=== PATIENT | female | born 1960 | race Caucasian/White ===

== ENCOUNTER 2017-01-06 20:41 | Emergency (ER) | payer MEDICARE ==
[2017-01-06 20:46] VITALS: RESP 18; TEMP 97.6
[2017-01-06] MEDS ORDERED: SODIUM CHLORIDE 0.9% 1,000 ML IV STA ×2 (21:07)
[2017-01-06] MEDS ORDERED: diphenhydrAMINE 50 MG/ML 1 ML VIAL IVP STA (21:07)
[2017-01-06] MEDS ORDERED: METOCLOPRAMIDE 5 MG/ML 2 ML VIAL IVP STA (21:07)
[2017-01-06] MEDS ORDERED: KETOROLAC 30 MG/ML 1 ML VIAL IVP STA (21:07)
[2017-01-06] MEDS ORDERED: MAG HYDROX/AL HYDROX/SIMETH 30 ML, HYOSCYAMINE ELIXIR 10 ML, CIMETIDINE HCL 300 MG, LID... PO STA ×4 (21:08)
--- NOTE | 2017-01-06 21:10 | ED ---
Nausea/Vomiting/Diarrhea HPI - General Chief complaint: Nausea/Vomiting/Diarrhea Stated complaint: CHest Pain COPD Time Seen by Provider: 01/06/17 20:59 Source: patient, RN notes reviewed Mode of arrival: ambulatory Limitations: no limitations - History of Present Illness Initial comments: Patient is a 56-year-old female with chief complaint of nausea and vomiting since 3 AM. Patient reports that she occasionally will have the symptoms and is unable to control and at home. She states that she does have some epigastric abdominal pain. She denies any fever or chills lately. She states that she's been feeling somewhat ill over the past 3 days prior to this. She states that she has no drug or alcohol use. She does have history of COPD and prolonged QT syndrome. She was sitting here with her daughter at this time. Patient seems to be very distraught and crying at this time. - Related Data Home Medications Medication Instructions Recorded Confirmed Budesonide-Formot 160-4.5 Mcg 2 puff INHALATION RT-BID 03/28/14 01/06/17 [Symbicort 160-4.5 Mcg Inhaler] Albuterol Inhaler [Ventolin Hfa 2 puff INHALATION RT-Q6H PRN 09/05/15 01/06/17 Inhaler] Albuterol Nebulized [Ventolin 2.5 mg INHALATION RT-QID PRN 09/05/15 01/06/17 Nebulized] Benazepril [Lotensin] 5 mg PO DAILY 09/05/15 01/06/17 Omeprazole 20 mg PO DAILY 09/05/15 01/06/17 Venlafaxine HCl [Effexor XR] 150 mg PO HS 09/05/15 01/06/17 clonazePAM [KlonoPIN] 1 mg PO BID PRN 10/20/15 01/06/17 Calcium Carbonate/Vitamin D3 1 tab PO BID 08/25/16 01/06/17 [Calcium 600-Vit D3 400 Caplet] Previous Rx's Medication Instructions Recorded Anastrozole [Arimidex] 1 mg PO DAILY #30 tab 04/02/14 amLODIPine [Norvasc] 10 mg PO DAILY #30 tab 09/08/15 Metoclopramide HCl [Reglan] 10 mg PO Q6HR PRN #5 day 03/14/16 Allergies Allergy/AdvReac Type Severity Reaction Status Date / Time ondansetron HCl AdvReac Severe Increased Verified 01/06/17 22:17 [From Zofran (as QT interval hydrochloride)] prochlorperazine edisylate AdvReac Severe Increased Verified 01/06/17 22:17 [From Compazine] QT interval prochlorperazine maleate AdvReac Severe Increased Verified 01/06/17 22:17 [From Compazine] QT Interval Review of Systems ROS Statement: Those systems with pertinent positive or pertinent negative responses have been documented in the HPI. ROS Other: All systems not noted in ROS Statement are negative. Past Medical History Past Medical History: Cancer, COPD, GERD/Reflux, GI Bleed, Hypertension, Pneumonia Additional Past Medical History / Comment(s): 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 Cyclic vomiting syndrome.HOME O2 2 LITERS AT WAS MOSTLY USING AT HS BUT LATELY HAS BEEN USING ALL DAY,BREAST CANCER, LYMPHEDEMA RT ARM, SINUS PROBLEMS,HAD COLITIS DURING CHEMO-CHEMO DONE IN 2000ALSO HAD RADIATION History of Any Multi-Drug Resistant Organisms: None Reported Past Surgical History: Breast Surgery, Orthopedic Surgery Additional Past Surgical History / Comment(s): Cone biopsy at age 22 years of age, multiple colonoscopies and EGDs. Thoracoscopy with minimal thoracotomy and pleural biopsy, D&C.. bilateral mastectomy and lymph nodeectomy, LT THUMB TRIGGER FINGER SX, LT KNEE ARTHROSOCPY, LT ACL REPAIR Past Anesthesia/Blood Transfusion Reactions: Postoperative Nausea & Vomiting ( PONV) Past Psychological History: Anxiety, Depression Smoking Status: Former smoker Past Alcohol Use History: Rare Additional Past Alcohol Use History / Comment(s): QUIT SMOKING 2011 SMOKED 10 YEARS 1/2 PPD. Past Drug Use History: None Reported Additional Drug Use History / Comment(s): Smokes pot on occasion - Past Family History Father Family Medical History: Cancer Additional Family Medical History / Comment(s): Patient reports her father of lung cancer at age 59. Mother Additional Family Medical History / Comment(s): MOM IS HEALTHY AT AGE 78 General Exam - General Exam Comments Initial Comments: 56-year-old female, patient seems to be very emotionally distraught. She will be crying for one second and laughing the next. Limitations: no limitations General appearance: alert, in no apparent distress Head exam: Present: atraumatic, normocephalic, normal inspection Eye exam: Present: normal appearance, PERRL, EOMI. Absent: scleral icterus, conjunctival injection, periorbital swelling ENT exam: Present: normal exam, mucous membranes moist Neck exam: Present: normal inspection. Absent: tenderness, meningismus, lymphadenopathy Respiratory exam: Present: normal lung sounds bilaterally. Absent: respiratory distress, wheezes, rales, rhonchi, stridor Cardiovascular Exam: Present: regular rate, normal rhythm, normal heart sounds. Absent: systolic murmur, diastolic murmur, rubs, gallop, clicks GI/Abdominal exam: Present: soft, tenderness (Epigastric tenderness.), normal bowel sounds. Absent: distended, guarding, rebound, rigid Extremities exam: Present: normal inspection, full ROM, normal capillary refill. Absent: tenderness, pedal edema, joint swelling, calf tenderness Back exam: Present: normal inspection Neurological exam: Present: alert, oriented X3, CN II-XII intact Psychiatric exam: Present: normal affect, normal mood Skin exam: Present: warm, dry, intact, normal color. Absent: rash Course Vital Signs 01/06/17 01/06/17 01/07/17 20:44 23:24 00:18 Temperature 97.6 F Pulse Rate 97 86 91 Respiratory 18 18 18 Rate Blood Pressure 141/90 164/98 147/95 O2 Sat by Pulse 95 91 L 92 L Oximetry Medical Decision Making - Medical Decision Making Patient is a 56-year-old female chief complaint of nausea and vomiting for one day. She states that she does have some acid reflux chest like pain occurring since then. Patient given GI cocktail IV fluids. Laboratory was obtained is negative for any acute process. Chest x-ray and abdominal x-ray are negative for any acute process. Patient reports she is feeling somewhat better after receiving IV Reglan. She was given crackers and Sprite and didn't tolerate this. Patient has been advised to follow-up with primary care provider tomorrow. Discussed continue taking at home Reglan. Patient agrees with treatment plan will comply. Return parameters were discussed. Patient feels comfortable about going home. - Lab Data Result diagrams: 01/06/17 21:28 01/06/17 21:28 Lab Results 01/06/17 01/06/17 01/06/17 Range/Units 21:28 21:28 21:28 WBC 10.7 H (3.8-10.6) k/uL RBC 5.06 (3.80-5.40) m/uL Hgb 15.5 (11.4-16.0) gm/dL Hct 45.8 (34.0-46.0) % MCV 90.5 (80.0-100.0) fL MCH 30.6 (25.0-35.0) pg MCHC 33.8 (31.0-37.0) g/dL RDW 13.6 (11.5-15.5) % Plt Count 342 (150-450) k/uL Neutrophils % 89 % Lymphocytes % 7 % Monocytes % 4 % Eosinophils % 0 % Basophils % 0 % Neutrophils # 9.5 H (1.3-7.7) k/uL Lymphocytes # 0.7 L (1.0-4.8) k/uL Monocytes # 0.4 (0-1.0) k/uL Eosinophils # 0.0 (0-0.7) k/uL Basophils # 0.0 (0-0.2) k/uL Sodium 139 (137-145) mmol/L Potassium 3.9 (3.5-5.1) mmol/L Chloride 98 (98-107) mmol/L Carbon Dioxide 29 (22-30) mmol/L Anion Gap 12 mmol/L BUN 15 (7-17) mg/dL Creatinine 0.50 L (0.52-1.04) mg/dL Est GFR (MDRD) Af Amer >60 (>60 ml/min/1.73 sqM) Est GFR (MDRD) Non-Af >60 (>60 ml/min/1.73 sqM) Glucose 165 H (74-99) mg/dL Calcium 10.1 (8.4-10.2) mg/dL Total Bilirubin 1.0 (0.2-1.3) mg/dL AST 32 (14-36) U/L ALT 32 (9-52) U/L Alkaline Phosphatase 100 (38-126) U/L Total Creatine Kinase 108 (30-135) U/L CK-MB (CK-2) 1.2 (0.0-2.4) ng/mL CK-MB (CK-2) Rel Index 1.1 Troponin I <0.012 (0.000-0.034) ng/mL Total Protein 8.5 H (6.3-8.2) g/dL Albumin 5.1 H (3.5-5.0) g/dL Amylase 56 (30-110) U/L Lipase 27 (23-300) U/L Urine Color Urine Appearance (Clear) Urine pH (5.0-8.0) Ur Specific [place] (1.001-1.035) Urine Protein (Negative) Urine Glucose (UA) (Negative) Urine Ketones (Negative) Urine Blood (Negative) Urine Nitrite (Negative) Urine Bilirubin (Negative) Urine Urobilinogen (<2.0) mg/dL Ur Leukocyte Esterase (Negative) Urine RBC (0-5) /hpf Urine WBC (0-5) /hpf Ur Squamous Epith Cells (0-4) /hpf Amorphous Sediment (None) /hpf Hyaline Casts (0-2) /lpf Urine Mucus (None) /hpf 01/06/17 Range/Units 23:07 WBC (3.8-10.6) k/uL RBC (3.80-5.40) m/uL Hgb (11.4-16.0) gm/dL Hct (34.0-46.0) % MCV (80.0-100.0) fL MCH (25.0-35.0) pg MCHC (31.0-37.0) g/dL RDW (11.5-15.5) % Plt Count (150-450) k/uL Neutrophils % % Lymphocytes % % Monocytes % % Eosinophils % % Basophils % % Neutrophils # (1.3-7.7) k/uL Lymphocytes # (1.0-4.8) k/uL Monocytes # (0-1.0) k/uL Eosinophils # (0-0.7) k/uL Basophils # (0-0.2) k/uL Sodium (137-145) mmol/L Potassium (3.5-5.1) mmol/L Chloride (98-107) mmol/L Carbon Dioxide (22-30) mmol/L Anion Gap mmol/L BUN (7-17) mg/dL Creatinine (0.52-1.04) mg/dL Est GFR (MDRD) Af Amer (>60 ml/min/1.73 sqM) Est GFR (MDRD) Non-Af (>60 ml/min/1.73 sqM) Glucose (74-99) mg/dL Calcium (8.4-10.2) mg/dL Total Bilirubin (0.2-1.3) mg/dL AST (14-36) U/L ALT (9-52) U/L Alkaline Phosphatase (38-126) U/L Total Creatine Kinase (30-135) U/L CK-MB (CK-2) (0.0-2.4) ng/mL CK-MB (CK-2) Rel Index Troponin I (0.000-0.034) ng/mL Total Protein (6.3-8.2) g/dL Albumin (3.5-5.0) g/dL Amylase (30-110) U/L Lipase (23-300) U/L Urine Color Light Yellow Urine Appearance Cloudy H (Clear) Urine pH 8.0 (5.0-8.0) Ur Specific [place] 1.011 (1.001-1.035) Urine Protein Negative (Negative) Urine Glucose (UA) Trace H (Negative) Urine Ketones Negative (Negative) Urine Blood Negative (Negative) Urine Nitrite Negative (Negative) Urine Bilirubin Negative (Negative) Urine Urobilinogen <2.0 (<2.0) mg/dL Ur Leukocyte Esterase Negative (Negative) Urine RBC 1 (0-5) /hpf Urine WBC 1 (0-5) /hpf Ur Squamous Epith Cells 1 (0-4) /hpf Amorphous Sediment Occasional H (None) /hpf Hyaline Casts 1 (0-2) /lpf Urine Mucus Rare H (None) /hpf 01/06/17 23:04 EKG shows normal sinus rhythm. Right atrial enlargement. Prolonged QT. Ventricular 91 bpm. [place] interval 142 ms. QRS duration 80 ms. QT/QTC 396/47 ms. No evidence of ST elevation or T-wave inversion. No illicit atrial or ventricular arrhythmias. - Radiology Data Radiology results: report reviewed Chest x-ray and KUB were reviewed and are negative for any acute process. Disposition Clinical Impression: Nausea & vomiting Disposition: HOME SELF-CARE Condition: Good Instructions: Acute Nausea and Vomiting (ED) Additional Instructions: Patient advised to follow-up tomorrow with primary care provider. Return to the emergency department if any alarming signs or symptoms occur. Patient advised to continue to take at home Reglan. Have a bland diet. Return to the emergency department if any alarming signs or symptoms occur. Referrals: Sanjay Alberts DO [Primary Care Provider] - 1-2 days Time of Disposition: 23:40
--- NOTE | 2017-01-06 22:11 | XR ---
EXAMINATION TYPE: XR chest 2V DATE OF EXAM: 01/06/2017 9:55 PM COMPARISON: 08/25/2016 HISTORY: Chest pain TECHNIQUE: Frontal and lateral views of the chest are obtained. FINDINGS: There is no heart failure nor confluent pneumonic infiltrate. There is mild pleural scarri ng at the lateral right lung base. Bony thorax is intact. There are no hilar masses. Heart size is no rmal. There are chest leads. IMPRESSION: Pleural diaphragmatic scarring at the right lung base. No change compared to old exam. N o acute lung disease. Normal heart.
--- NOTE | 2017-01-06 22:12 | XR ---
EXAMINATION TYPE: XR KUB DATE OF EXAM: 01/06/2017 9:55 PM COMPARISON: 03/14/2016 HISTORY: Abdominal pain TECHNIQUE: 2 views FINDINGS: Bowel gas pattern is normal. There is no sign of intestinal obstruction or pneumoperitoneum . Fecal pattern is normal. There are no pathologic calcifications over the kidneys. IMPRESSION: Nonacute abdomen. No change.
[2017-01-06 22:15] LABS: Basophils % (A) 0 %; CH 30.8; CHCM 34.1; Eosinophils % (A) 0 %; HCT 45.8 % (34.0-46.0); HDW 2.38; HGB 15.5 gm/dL (11.4-16.0); Luc # (Auto) 0.07; Luc % (Auto) 1; Lymphocytes # (A) 0.7 k/uL (1.0-4.8); Lymphocytes % (A) 7 %; MCH 30.6 pg (25.0-35.0); MCHC 33.8 g/dL (31.0-37.0); MCV 90.5 fL (80.0-100.0); Monocytes # (A) 0.4 k/uL (0-1.0); Monocytes % (A) 4 %; Neutrophils # (A) 9.5 k/uL (1.3-7.7); Neutrophils % (A) 89 %; RBC 5.06 m/uL (3.80-5.40); RDW 13.6 % (11.5-15.5); WBC 10.7 k/uL (3.8-10.6); WBC (Perox) 10.58
[2017-01-06 22:20] LABS: Creatine Kinase 108 U/L (30-135)
[2017-01-06 22:22] LABS: ALT 32 U/L (9-52); AST 32 U/L (14-36); Alkaline Phosphatase 100 U/L (38-126); Amylase 56 U/L (30-110); Anion Gap 12 mmol/L; Blood Urea Nitrogen 15 mg/dL (7-17); Calcium 10.1 mg/dL (8.4-10.2); Carbon Dioxide 29 mmol/L (22-30); Chloride 98 mmol/L (98-107); Glucose 165 mg/dL (74-99); Non-African American GFR(MDRD) >60 (>60 ml/min/1.73 sqM); Potassium 3.9 mmol/L (3.5-5.1); Sodium 139 mmol/L (137-145); Total Protein 8.5 g/dL (6.3-8.2)
[2017-01-06 22:33] LABS: Creatine Kinase MB 1.2 ng/mL (0.0-2.4); Troponin I <0.012 ng/mL (0.000-0.034)
[2017-01-06 23:37] LABS: Amorphous Sediment,Urine Occasional /hpf; Appearance,Urine Cloudy (Clear); Bilirubin,Urine Negative (Negative); Glucose,Urine (UA) Trace (Negative); Ketones,Urine Negative (Negative); Leukocyte Esterase,Urine Negative (Negative); Mucus,Urine Rare /hpf; Nitrite,Urine Negative (Negative); Particle Count 5933; Protein,Urine Negative (Negative); RBC,Urine 1 /hpf (0-5); Specific Gravity,Urine 1.011 (1.001-1.035); Squamous Epithelial Cell,Urine 1 /hpf (0-4); UA Billing (MACRO vs. MICRO) MICRO; Urobilinogen,Urine <2.0 mg/dL (<2.0); WBC,Urine 1 /hpf (0-5)
[2017-01-07 00:19] VITALS: BP 147/95; PULSE 91
== END 2017-01-07 00:19 | disposition home or self-care (01) ==
LOC: EC 20:41
DX: R11.2 Nausea with vomiting, unspecified (principal); R07.9 Chest pain, unspecified; R19.7 Diarrhea, unspecified; R10.13 Epigastric pain; J44.9 Chronic obstructive pulmonary disease, unspecified; K21.9 Gastro-esophageal reflux disease without esophagitis; I10 Essential (primary) hypertension; F32.9 Major depressive disorder, single episode, unspecified; Z87.891 Personal history of nicotine dependence; F41.9 Anxiety disorder, unspecified; Z79.51 Long term (current) use of inhaled steroids; Z79.899 Other long term (current) drug therapy; Z88.8 Allergy status to other drugs, medicaments and biological substances; Z87.01 Personal history of pneumonia (recurrent)
CPT/HCPCS: 36415; 93005; 80053; 82150; 82550; 82553; 83690; 84484; 85025; 81001; 71020; 74000; 99284; 96374; 96375 ×2; 96361 ×2; J1200; J2765; J1885

== ENCOUNTER 2017-03-18 10:23 | Inpatient (IN) | payer MEDICARE ==
[2017-03-18] MEDS ORDERED: methylPREDNISolone SOD SUCCI 125 MG/2 ML VIAL IV STA (11:09)
[2017-03-18] MEDS ORDERED: LEVOFLOXACIN 750MG-D5W PMX 750 MG in DEXTROSE/WATER 1 150ML.BAG IVPB STA (11:09)
[2017-03-18] MEDS ORDERED: ALBUTEROL NEBULIZED 2.5 MG/3 ML INHALATION STA (11:09)
[2017-03-18] MEDS ORDERED: SODIUM CHLORIDE 0.9% 500 ML IV STA (11:09)
[2017-03-18] MEDS ORDERED: IPRATROPIUM 0.5 MG/2.5 ML NEBU INHALATION STA (11:09)
--- NOTE | 2017-03-18 11:14 | ED ---
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 Patient comes in today patient had a three-day history of difficulty breathing which has gotten considerably worse. Patient is on oxygen 2 L every night but lately has had to use it during the day. Patient states she's been taking her breathing treatments but she continues to be quite short of breath. Patient states today she was coughing and coughed up quite a bit of green sputum. Patient denies any chest pain or palpitations. Patient denies abdominal pain patient denies nausea vomiting diarrhea. Patient denies any headache patient denies numbness weakness. Patient denies lightheadedness or dizziness. - Related Data Home Medications Medication Instructions Recorded Confirmed Budesonide-Formot 160-4.5 Mcg 2 puff INHALATION RT-BID 03/28/14 03/18/17 [Symbicort 160-4.5 Mcg Inhaler] Albuterol Inhaler [Ventolin Hfa 2 puff INHALATION RT-Q6H PRN 09/05/15 03/18/17 Inhaler] Albuterol Nebulized [Ventolin 2.5 mg INHALATION RT-QID PRN 09/05/15 03/18/17 Nebulized] Omeprazole 20 mg PO DAILY 09/05/15 03/18/17 Venlafaxine HCl [Effexor XR] 150 mg PO HS 09/05/15 03/18/17 clonazePAM [KlonoPIN] 1 mg PO BID PRN 10/20/15 03/18/17 Calcium Carbonate/Vitamin D3 1 tab PO BID 08/25/16 03/18/17 [Calcium 600-Vit D3 400 Caplet] Previous Rx's Medication Instructions Recorded Anastrozole [Arimidex] 1 mg PO DAILY #30 tab 04/02/14 amLODIPine [Norvasc] 10 mg PO DAILY #30 tab 09/08/15 Metoclopramide HCl [Reglan] 10 mg PO Q6HR PRN #5 day 03/14/16 Allergies Allergy/AdvReac Type Severity Reaction Status Date / Time ondansetron HCl AdvReac Severe Increased Verified 03/18/17 11:09 [From Zofran (as QT interval hydrochloride)] prochlorperazine edisylate AdvReac Severe Increased Verified 03/18/17 11:09 [From Compazine] QT interval prochlorperazine maleate AdvReac Severe Increased Verified 03/18/17 11:09 [From Compazine] QT Interval Review of Systems ROS Statement: Those systems with pertinent positive or pertinent negative responses have been documented in the HPI. ROS Other: All systems not noted in ROS Statement are negative. Past Medical History Past Medical History: Cancer, COPD, GERD/Reflux, GI Bleed, Hypertension, Pneumonia Additional Past Medical History / Comment(s): 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 Cyclic vomiting syndrome.HOME O2 2 LITERS AT WAS MOSTLY USING AT HS BUT LATELY HAS BEEN USING ALL DAY,BREAST CANCER, LYMPHEDEMA RT ARM, SINUS PROBLEMS,HAD COLITIS DURING CHEMO-CHEMO DONE IN 2000ALSO HAD RADIATION History of Any Multi-Drug Resistant Organisms: None Reported Past Surgical History: Breast Surgery, Orthopedic Surgery Additional Past Surgical History / Comment(s): Cone biopsy at age 22 years of age, multiple colonoscopies and EGDs. Thoracoscopy with minimal thoracotomy and pleural biopsy, D&C.. bilateral mastectomy and lymph nodeectomy, LT THUMB TRIGGER FINGER SX, LT KNEE ARTHROSOCPY, LT ACL REPAIR Past Anesthesia/Blood Transfusion Reactions: Postoperative Nausea & Vomiting ( PONV) Past Psychological History: Anxiety, Depression Smoking Status: Former smoker Past Alcohol Use History: Rare Past Drug Use History: None Reported - Past Family History Father Family Medical History: Cancer Additional Family Medical History / Comment(s): Patient reports her father of lung cancer at age 59. Mother Additional Family Medical History / Comment(s): MOM IS HEALTHY AT AGE 78 General Exam - General Exam Comments Initial Comments: GENERAL: Patient is well-developed and well-nourished. Patient is nontoxic and well- hydrated and is in moderate distress. ENT: Neck is soft and supple. No significant lymphadenopathy is noted. Oropharynx is clear. Moist mucous membranes. Neck has full range of motion without eliciting any pain. EYES: The sclera were anicteric and conjunctiva were pink and moist. Extraocular movements were intact and pupils were equal round and reactive to light. Eyelids were unremarkable. PULMONARY: Diffuse expiratory wheezing CARDIOVASCULAR: There is a regular rate and rhythm without any murmurs gallops or rubs. ABDOMEN: Soft and nontender with normal bowel sounds. No palpable organomegaly was noted. There is no palpable pulsatile mass. SKIN: Skin is clear with no lesions or rashes and otherwise unremarkable. NEUROLOGIC: Patient is alert and oriented x3. Cranial nerves II through XII are grossly intact. Motor and sensory are also intact. Normal speech, volume and content. Symmetrical smile. MUSCULOSKELETAL: Normal extremities with adequate strength and full range of motion. LYMPHATICS: No significant lymphadenopathy is noted PSYCHIATRIC: Normal psychiatric evaluation. Normal interpersonal interactions appears functionally intact in deals appropriately with others. No signs of depression. No signs of anxiety. Limitations: physical limitation Course Vital Signs 03/18/17 03/18/17 03/18/17 10:35 10:46 11:27 Temperature 97.0 F L Pulse Rate 90 88 90 Respiratory 20 18 Rate Blood Pressure 113/79 138/81 O2 Sat by Pulse 89 L 92 L Oximetry 03/18/17 03/18/17 03/18/17 11:52 11:59 12:01 Temperature 98.1 F Pulse Rate 94 98 101 H Respiratory 18 Rate Blood Pressure 138/81 O2 Sat by Pulse 99 Oximetry Medical Decision Making - Medical Decision Making EKG shows normal sinus rhythm at 83 bpm RI interval is 132 QRS is 78 QT interval 392 QTC is 460. Patient's EKG shows no ST segment elevation or depression or T-wave abdomen is noted. Chest x-ray shows no acute abnormality. Patient received 3 breathing treatments in the emergency department after that I listened to the patient again she was feeling better and sounded more clear at this time. I spoke with Dr. Babb he agreed to admit the patient admitted the patient I wrote admitting orders consult with Dr. Prescott I continued to breathing treatments and Solu-Medrol the floor. I also continued antibiotics on the floor. - Lab Data Result diagrams: 03/18/17 10:54 03/18/17 10:54 Lab Results 03/18/17 03/18/17 03/18/17 Range/Units 10:54 10:54 10:54 WBC 13.0 H (3.8-10.6) k/uL RBC 4.88 (3.80-5.40) m/uL Hgb 15.6 (11.4-16.0) gm/dL Hct 45.3 (34.0-46.0) % MCV 92.9 (80.0-100.0) fL MCH 31.9 (25.0-35.0) pg MCHC 34.3 (31.0-37.0) g/dL RDW 13.9 (11.5-15.5) % Plt Count 336 (150-450) k/uL Neutrophils % 89 % Lymphocytes % 6 % Monocytes % 4 % Eosinophils % 0 % Basophils % 0 % Neutrophils # 11.6 H (1.3-7.7) k/uL Lymphocytes # 0.8 L (1.0-4.8) k/uL Monocytes # 0.5 (0-1.0) k/uL Eosinophils # 0.1 (0-0.7) k/uL Basophils # 0.0 (0-0.2) k/uL PT (9.0-12.0) sec INR (<1.1) APTT (22.0-30.0) sec Sodium 138 (137-145) mmol/L Potassium 4.7 (3.5-5.1) mmol/L Chloride 99 (98-107) mmol/L Carbon Dioxide 29 (22-30) mmol/L Anion Gap 10 mmol/L BUN 6 L (7-17) mg/dL Creatinine 0.49 L (0.52-1.04) mg/dL Est GFR (MDRD) Af Amer >60 (>60 ml/min/1.73 sqM) Est GFR (MDRD) Non-Af >60 (>60 ml/min/1.73 sqM) Glucose 133 H (74-99) mg/dL Plasma Lactic Acid [place] (0.7-2.0) mmol/L Calcium 9.1 (8.4-10.2) mg/dL Magnesium 1.9 (1.6-2.3) mg/dL Total Bilirubin 1.1 (0.2-1.3) mg/dL AST 36 (14-36) U/L ALT 19 (9-52) U/L Alkaline Phosphatase 94 (38-126) U/L Total Creatine Kinase 127 (30-135) U/L CK-MB (CK-2) 0.8 (0.0-2.4) ng/mL CK-MB (CK-2) Rel Index 0.6 Troponin I <0.012 (0.000-0.034) ng/mL Total Protein 7.6 (6.3-8.2) g/dL Albumin 4.5 (3.5-5.0) g/dL 03/18/17 03/18/17 Range/Units 10:54 10:54 WBC (3.8-10.6) k/uL RBC (3.80-5.40) m/uL Hgb (11.4-16.0) gm/dL Hct (34.0-46.0) % MCV (80.0-100.0) fL MCH (25.0-35.0) pg MCHC (31.0-37.0) g/dL RDW (11.5-15.5) % Plt Count (150-450) k/uL Neutrophils % % Lymphocytes % % Monocytes % % Eosinophils % % Basophils % % Neutrophils # (1.3-7.7) k/uL Lymphocytes # (1.0-4.8) k/uL Monocytes # (0-1.0) k/uL Eosinophils # (0-0.7) k/uL Basophils # (0-0.2) k/uL PT 10.2 (9.0-12.0) sec INR 1.0 (<1.1) APTT 26.0 (22.0-30.0) sec Sodium (137-145) mmol/L Potassium (3.5-5.1) mmol/L Chloride (98-107) mmol/L Carbon Dioxide (22-30) mmol/L Anion Gap mmol/L BUN (7-17) mg/dL Creatinine (0.52-1.04) mg/dL Est GFR (MDRD) Af Amer (>60 ml/min/1.73 sqM) Est GFR (MDRD) Non-Af (>60 ml/min/1.73 sqM) Glucose (74-99) mg/dL Plasma Lactic Acid [place] 1.1 (0.7-2.0) mmol/L Calcium (8.4-10.2) mg/dL Magnesium (1.6-2.3) mg/dL Total Bilirubin (0.2-1.3) mg/dL AST (14-36) U/L ALT (9-52) U/L Alkaline Phosphatase (38-126) U/L Total Creatine Kinase (30-135) U/L CK-MB (CK-2) (0.0-2.4) ng/mL CK-MB (CK-2) Rel Index Troponin I (0.000-0.034) ng/mL Total Protein (6.3-8.2) g/dL Albumin (3.5-5.0) g/dL Critical Care Time Critical Care Time: Yes Total Critical Care Time: 35 Disposition Clinical Impression: Acute exacerbation of chronic obstructive airways disease, Acute bronchitis Disposition: ADMITTED IP TO THIS HOSP Referrals: Sanjay Alberts DO [Primary Care Provider] - 1-2 days Time of Disposition: 13:08
[2017-03-18 11:37] LABS: Basophils % (A) 0 %; CH 30.9; CHCM 33.4; Eosinophils # (A) 0.1 k/uL (0-0.7); Eosinophils % (A) 0 %; HCT 45.3 % (34.0-46.0); HDW 2.23; HGB 15.6 gm/dL (11.4-16.0); Luc # (Auto) 0.07; Luc % (Auto) 1; Lymphocytes # (A) 0.8 k/uL (1.0-4.8); Lymphocytes % (A) 6 %; MCH 31.9 pg (25.0-35.0); MCHC 34.3 g/dL (31.0-37.0); MCV 92.9 fL (80.0-100.0); Mean Platelet Volume 6.7; Monocytes # (A) 0.5 k/uL (0-1.0); Monocytes % (A) 4 %; Neutrophils # (A) 11.6 k/uL (1.3-7.7); Neutrophils % (A) 89 %; RBC 4.88 m/uL (3.80-5.40); RDW 13.9 % (11.5-15.5); WBC (Perox) 12.29
[2017-03-18 11:44] LABS: ALT 19 U/L (9-52); AST 36 U/L (14-36); Alkaline Phosphatase 94 U/L (38-126); Anion Gap 10 mmol/L; Blood Urea Nitrogen 6 mg/dL (7-17); Calcium 9.1 mg/dL (8.4-10.2); Carbon Dioxide 29 mmol/L (22-30); Chloride 99 mmol/L (98-107); Glucose 133 mg/dL (74-99); Magnesium 1.9 mg/dL (1.6-2.3); Non-African American GFR(MDRD) >60 (>60 ml/min/1.73 sqM); Sodium 138 mmol/L (137-145); Total Bilirubin 1.1 mg/dL (0.2-1.3); Total Protein 7.6 g/dL (6.3-8.2)
[2017-03-18 11:54] LABS: Potassium 4.7 mmol/L (3.5-5.1)
[2017-03-18 12:00] LABS: Prothrombin Time 10.2 sec (9.0-12.0)
[2017-03-18 12:05] LABS: Creatine Kinase 127 U/L (30-135)
[2017-03-18 12:16] LABS: Creatine Kinase MB 0.8 ng/mL (0.0-2.4); Troponin I <0.012 ng/mL (0.000-0.034)
--- NOTE | 2017-03-18 12:16 | XR ---
EXAMINATION TYPE: XR chest 2V DATE OF EXAM: 03/18/2017 COMPARISON: NONE INDICATION: Difficulty breathing COPD TECHNIQUE: Frontal and lateral views of the chest are obtained. FINDINGS: The heart size is normal. The pulmonary vasculature is normal. There is some streak opacity within the right midlung. Correlate for atelectasis. Blunting the right costophrenic angle is present. Consider small pleural effusion or infiltrate. This is stable from January 06, 2017. Chronic changes at the right costophrenic angle on the frontal proje ction may be present.. IMPRESSION: 1. Mild atelectasis right midlung. 2. Suspected chronic changes versus recurrent infiltrate at the right costophrenic angle.
[2017-03-18] MEDS ORDERED: IPRATROPIUM-ALBUTEROL 3 ML NEB INHALATION PRN (13:09)
[2017-03-18] MEDS ORDERED: METOCLOPRAMIDE 10 MG TAB PO PRN (13:10)
[2017-03-18] MEDS ORDERED: AMOXIC-POT CLAV 875-125MG 1 EACH TAB PO STA (13:13)
[2017-03-18] MEDS ORDERED: methylPREDNISolone SOD SUCCI 125 MG/2 ML VIAL IV SCH (13:15)
[2017-03-18 14:09] VITALS: BMI 22.4
--- NOTE | 2017-03-18 14:12 | P.HPIM ---
History of Present Illness H&P Date: 03/18/17 Chief Complaint: Shortness of breath 56-year-old female one of Dr. Alberts and Dr. Mock for pulmonary with history of right sided breast cancer with metastasis to the right pleura was diagnosed back in 2013. Patient stated that she was in her usual state of health about a week ago when her daughter came down with an upper respiratory tract infection when she developed to have an increased coughing and minimal phlegm production associated with increased shortness breath that did not respond to the analyzer as well as inhalers, so [facility] that did not show any acute infiltrate however she was found to have an acute exacerbation of chronic obstructive pulmonary disease and she was placed on Solu-Medrol 60 mg IV push every 6 hours , she was placed on nebulized treatment DuoNeb 3 mg nebulization 4 times every day, and she was started on Levaquin, her x-ray showed no evidence of pneumonia however there may be an evidence of acute bronchitis. Review of Systems Constitutional: Denies anorexia, Denies chronic headaches, Denies lethargy, Denies malaise, Denies weakness, Denies weight gain, Denies weight loss Eyes: denies blurred vision, denies bulging eye, denies decreased vision, denies diplopia Ears: deny: decreased hearing Ears, nose, mouth and throat: Denies dysphagia, Denies neck lump, Denies sore throat Cardiovascular: Reports decreased exercise tolerance, Reports dyspnea on exertion, Reports high blood pressure, Reports shortness of breath, Denies chest pain, Denies palpitations, Denies rapid heart beat, Denies syncope Respiratory: Reports congestion, Reports cough, Reports cough with sputum, Reports home oxygen, Reports respiratory infections, Reports wheezing, Denies sleep apnea, Denies snoring Gastrointestinal: Denies abdominal pain, Denies belching, Denies bloating, Denies BRBPR, Denies heartburn, Denies hematemesis, Denies melena, Denies nausea , Denies vomiting Genitourinary: Denies dysuria, Denies urgency Musculoskeletal: Denies myalgias Musculoskeletal: absent: ankle pain, ankle stiffness, ankle swelling, elbow pain , elbow stiffness, elbow swelling, foot pain, foot stiffness, foot swelling, hand pain, hand stiffness, hand swelling, hip pain, hip stiffness, hip swelling , knee pain, knee stiffness, knee swelling, shoulder pain, shoulder stiffness, shoulder swelling, wrist pain, wrist stiffness, wrist swelling Integumentary: Denies pruritus, Denies rash Neurological: Denies numbness, Denies weakness Psychiatric: Denies anxiety, Denies depression Endocrine: Denies fatigue, Denies weight change Past Medical History Past Medical History: Cancer, COPD, GERD/Reflux, GI Bleed, Hypertension, Pneumonia Additional Past Medical History / Comment(s): 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 Cyclic vomiting syndrome.HOME O2 2 LITERS AT WAS MOSTLY USING AT HS BUT LATELY HAS BEEN USING ALL DAY,BREAST CANCER, LYMPHEDEMA RT ARM, SINUS PROBLEMS,HAD COLITIS DURING CHEMO-CHEMO DONE IN 2000ALSO HAD RADIATION History of Any Multi-Drug Resistant Organisms: None Reported Past Surgical History: Breast Surgery, Orthopedic Surgery Additional Past Surgical History / Comment(s): Cone biopsy at age 22 years of age, multiple colonoscopies and EGDs. Thoracoscopy with minimal thoracotomy and pleural biopsy, D&C.. bilateral mastectomy and lymph nodeectomy, LT THUMB TRIGGER FINGER SX, LT KNEE ARTHROSOCPY, LT ACL REPAIR Past Anesthesia/Blood Transfusion Reactions: Postoperative Nausea & Vomiting ( PONV) Past Psychological History: Anxiety, Depression Smoking Status: Former smoker Past Alcohol Use History: Rare Additional Past Alcohol Use History / Comment(s): Smoker of one pack per day and quit 3 years ago. Past Drug Use History: None Reported - Past Family History Father Family Medical History: Cancer Additional Family Medical History / Comment(s): Patient reports her father of lung cancer at age 59. Mother Additional Family Medical History / Comment(s): MOM IS HEALTHY AT AGE 80 Brother(s) Additional Family Medical History / Comment(s): Patient has to penicillin major medical problems. Patient has 2 sisters with no major medical problems. Patient has one daughter with no major medical problems. Medications and Allergies Home Medications Medication Instructions Recorded Confirmed Type Budesonide-Formot 160-4.5 Mcg 2 puff INHALATION RT-BID 03/28/14 03/18/17 History [Symbicort 160-4.5 Mcg Inhaler] Albuterol Inhaler [Ventolin Hfa 2 puff INHALATION RT-Q6H PRN 09/05/15 03/18/17 History Inhaler] Albuterol Nebulized [Ventolin 2.5 mg INHALATION RT-QID PRN 09/05/15 03/18/17 History Nebulized] Omeprazole 20 mg PO DAILY 09/05/15 03/18/17 History Venlafaxine HCl [Effexor XR] 150 mg PO HS 09/05/15 03/18/17 History clonazePAM [KlonoPIN] 1 mg PO BID PRN 10/20/15 03/18/17 History Calcium Carbonate/Vitamin D3 1 tab PO BID 08/25/16 03/18/17 History [Calcium 600-Vit D3 400 Caplet] Allergies Allergy/AdvReac Type Severity Reaction Status Date / Time levofloxacin Allergy Rash/Hives Verified 03/18/17 13:15 ondansetron HCl AdvReac Severe Increased Verified 03/18/17 11:09 [From Zofran (as QT interval hydrochloride)] prochlorperazine edisylate AdvReac Severe Increased Verified 03/18/17 11:09 [From Compazine] QT interval prochlorperazine maleate AdvReac Severe Increased Verified 03/18/17 11:09 [From Compazine] QT Interval Physical Exam Vitals: Vital Signs Temp Pulse Resp BP Pulse Ox 03/18/17 12:01 101 H 03/18/17 11:59 98.1 F 98 18 138/81 99 03/18/17 11:52 94 03/18/17 11:27 90 03/18/17 10:46 88 18 138/81 92 L 03/18/17 10:35 97.0 F L 90 20 113/79 89 L Intake and Output 03/17/17 03/18/17 03/18/17 22:59 06:59 14:59 Other: Weight 52.163 kg Patient Weight 03/19/17 06:59 Weight 52.163 kg - Constitutional General appearance: average body habitus, mild distress - EENT Eyes: anicteric sclerae, EOMI, PERRLA, no ptosis, no scleral icterus, normal appearance ENT: hearing grossly normal, NA/AT, normal oropharynx, no thrush Ears: bilateral: normal - Neck Neck: no lymphadenopathy, normal ROM, no rigidity, no stridor, no thyromegaly Carotids: bilateral: upstroke normal Thyroid: bilateral: normal size - Respiratory Respiratory: bilateral: diminished, wheezing, prolonged expiration, negative: dullness, rales, rhonchi - Cardiovascular Rhythm: regular Heart sounds: normal: S1, S2 Abnormal Heart Sounds: no systolic murmur, no S3 Gallop, no S4 Gallop, no click - Gastrointestinal General gastrointestinal: normal bowel sounds, soft, no splenomegaly, no tenderness, no umbilical hernia, no ventral hernia - Integumentary Integumentary: normal, normal turgor - Neurologic Neurologic: CNII-XII intact - Musculoskeletal Musculoskeletal: generalized weakness, strength equal bilaterally - Psychiatric Psychiatric: A&O x's 3, appropriate affect, intact judgment & insight Results CBC & Chem 7: 03/18/17 10:54 03/18/17 10:54 Labs: Abnormal Lab Results - Last 24 Hours (Table) 03/18/17 03/18/17 Range/Units 10:54 10:54 WBC 13.0 H (3.8-10.6) k/uL Neutrophils # 11.6 H (1.3-7.7) k/uL Lymphocytes # 0.8 L (1.0-4.8) k/uL BUN 6 L (7-17) mg/dL Creatinine 0.49 L (0.52-1.04) mg/dL Glucose 133 H (74-99) mg/dL Thrombosis Risk Factor Assmnt - DVT/VTE Prophylaxis DVT/VTE Prophylaxis: Pharmacologic Prophylaxis ordered, Mechanical Prophylaxis ordered Assessment and Plan Plan: Assessment and plan: 1. Acute respiratory insufficiency secondary to acute exacerbation of COPD. Start the patient on Solu-Medrol 60 mg IV push every 6 hours, DuoNeb 3 male nebulization 4 times every day, Pulmicort milligrams position twice every day, start the patient also on Levaquin 500 mg IV piggyback every 24 hours, sputum culture if needed, continue oxygen support, pulmonary consultation from Dr. Cross. 2. 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 3. Depression. Continue Effexor XR 150 mg orally once every day. 4. Acute bronchitis. Continue Levaquin 500 mg IV piggyback daily. 5. Anxiety disorder. Continue Klonopin 1 mg orally twice every day. 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 7. DVT prophylaxis. Continue heparin 5000 units subcutaneously every 12 hours. 8. GI prophylaxis. Continue PPI. 9. Admit to inpatient. Estimate a length of stay 2 midnights.
[2017-03-18] MEDS: BENZONATATE 100 MG CAP PO PRN (14:33)
[2017-03-18] MEDS ORDERED: ANASTROZOLE 1 MG TAB PO ONE (14:45)
[2017-03-18] MEDS: IPRATROPIUM-ALBUTEROL 3 ML NEB INHALATION SCH ×2 (16:31→19:38)
[2017-03-18 17:21] LABS: Glucose,Whole Blood 154 mg/dL (75-99)
[2017-03-18] MEDS: CALCIUM CARB-VIT D 500MG-200UN 1 EACH TAB PO SCH (17:38)
[2017-03-18] MEDS: HEPARIN SODIUM,PORCINE 5,000 UNIT/ML 1 ML VIAL SQ SCH ×2 (17:38→23:52)
[2017-03-18] MEDS: methylPREDNISolone SOD SUCCI 125 MG/2 ML VIAL IV SCH ×2 (17:44→23:52)
[2017-03-18] MEDS: INSULIN LISPRO (humaLOG) 300 UNIT/3 ML VIAL SQ SCH ×2 (17:48→21:22)
[2017-03-18 19:32] LABS: Hemoglobin A1C 5.9 % (4.2-6.1)
[2017-03-18] MEDS: SYMBICORT 160-4.5 MCG INHALER INHALATION SCH (19:43)
[2017-03-18 20:59] LABS: Glucose,Whole Blood 183 mg/dL (75-99)
[2017-03-18] MEDS ORDERED: amLODIPine 10 MG TAB PO SCH (21:00)
[2017-03-18] MEDS: clonazePAM 1 MG TAB PO PRN (21:22)
[2017-03-18] MEDS: amLODIPine 5 MG TAB PO SCH (21:22)
[2017-03-18] MEDS: AMOXIC-POT CLAV 875-125MG 1 EACH TAB PO SCH (21:23)
[2017-03-18] MEDS: VENLAFAXINE HCL ER 150 MG CAP PO SCH (21:23)
[2017-03-19 05:59] LABS: Glucose,Whole Blood 145 mg/dL (75-99)
[2017-03-19] MEDS: methylPREDNISolone SOD SUCCI 125 MG/2 ML VIAL IV SCH ×4 (06:06→23:33)
[2017-03-19] MEDS: INSULIN LISPRO (humaLOG) 300 UNIT/3 ML VIAL SQ SCH ×4 (06:06→21:51)
[2017-03-19] MEDS: PANTOPRAZOLE 40 MG TABLET PO SCH (06:06)
[2017-03-19] MEDS: CALCIUM CARB-VIT D 500MG-200UN 1 EACH TAB PO SCH ×2 (06:07→17:15)
[2017-03-19] MEDS: SYMBICORT 160-4.5 MCG INHALER INHALATION SCH ×2 (07:19→21:09)
[2017-03-19] MEDS: IPRATROPIUM-ALBUTEROL 3 ML NEB INHALATION SCH ×4 (07:19→21:09)
[2017-03-19] MEDS: HEPARIN SODIUM,PORCINE 5,000 UNIT/ML 1 ML VIAL SQ SCH ×3 (08:27→23:33)
[2017-03-19] MEDS: amLODIPine 5 MG TAB PO SCH ×2 (08:28→21:50)
[2017-03-19] MEDS: AMOXIC-POT CLAV 875-125MG 1 EACH TAB PO SCH ×2 (08:28→21:50)
[2017-03-19] MEDS: ANASTROZOLE 1 MG TAB PO SCH (08:28)
[2017-03-19] MEDS ORDERED: LEVOFLOXACIN 500 MG TAB PO SCH (09:00)
[2017-03-19] MEDS ORDERED: amLODIPine 10 MG TAB PO SCH (09:00)
[2017-03-19 11:51] LABS: Glucose,Whole Blood 181 mg/dL (75-99)
[2017-03-19] MEDS ORDERED: LEVOFLOXACIN 750 MG TAB PO SCH (12:00)
--- NOTE | 2017-03-19 13:18 | P.CNPUL ---
History of Present Illness Consult date: 03/19/17 Reason for consult: dyspnea, COPD History of present illness: 56-year-old female patient with known history of COPD with a baseline FEV1 of 37 % of predicted, maintained on Symbicort as maintenance inhaler on outpatient basis. Her last hospitalization for an acute COPD exacerbation was more than one half years back. The patient also has been diagnosed having metastatic breast cancer with involvement of the pleura and the patient has been stable and and she had excellent response with Arimidex. She comes in for symptoms typical of an acute COPD exacerbation. She is having increased dyspnea, chest tightness, wheezing and shortness of breath and her chest x-ray is showing no evidence of an acute pneumonia or infiltration. No hemoptysis. No pleurisy. She was started on DuoNeb the last treatment [id number] along with IV Solu Medrol. She was started on empiric antibiotic coverage with Levaquin. Slightly better compared to yesterday. An ex-smoker and she quit smoking more than 2 years ago. She has home O2 and she has been the eighth the using it only at nighttime. She is been exposed to extensive amount of secondhand smoking and she herself has been a heavy smoker and she quit 2 years ago. Review of Systems Constitutional: Denies chills, Denies fever Eyes: denies blurred vision, denies pain Ears, nose, mouth and throat: Denies headache, Denies sore throat Cardiovascular: Denies chest pain, Denies shortness of breath Respiratory: Reports cough with sputum, Reports dyspnea, Reports wheezing, Denies cough Gastrointestinal: Denies abdominal pain, Denies diarrhea, Denies nausea, Denies vomiting Genitourinary: Denies dysuria, Denies hematuria Musculoskeletal: Denies myalgias Integumentary: Denies pruritus, Denies rash Neurological: Denies numbness, Denies weakness Psychiatric: Denies anxiety, Denies depression Endocrine: Denies fatigue, Denies weight change Past Medical History Past Medical History: Cancer, COPD, GERD/Reflux, GI Bleed, Hypertension, Pneumonia Additional Past Medical History / Comment(s): COPD, baseline FEV1 of 37% of predicted consistent with severe COPD, metastatic breast cancer, hypertension, cyclic vomiting syndrome, lymphedema of the right upper extremity related to previous breast surgery, chronic sinus disease, history of QT prolongation secondary to antibiotic use. She also has history of GI bleed, GERD History of Any Multi-Drug Resistant Organisms: None Reported Past Surgical History: Breast Surgery, Orthopedic Surgery Additional Past Surgical History / Comment(s): Cone biopsy at age 22 years of age, multiple colonoscopies and EGDs. Thoracoscopy with minimal thoracotomy and pleural biopsy, D&C.. bilateral mastectomy and lymph nodeectomy, LT THUMB TRIGGER FINGER SX, LT KNEE ARTHROSOCPY, LT ACL REPAIR Past Anesthesia/Blood Transfusion Reactions: Postoperative Nausea & Vomiting ( PONV) Past Psychological History: Anxiety, Depression Smoking Status: Former smoker Past Alcohol Use History: Rare Additional Past Alcohol Use History / Comment(s): Smoker of one pack per day and quit 3 years ago. Past Drug Use History: None Reported - Past Family History Father Family Medical History: Cancer Additional Family Medical History / Comment(s): Patient reports her father of lung cancer at age 59. Brother(s) Additional Family Medical History / Comment(s): Patient has to penicillin major medical problems. Patient has 2 sisters with no major medical problems. Patient has one daughter with no major medical problems. Mother Additional Family Medical History / Comment(s): MOM IS HEALTHY AT AGE 80 Medications and Allergies Home Medications Medication Instructions Recorded Confirmed Type Budesonide-Formot 160-4.5 Mcg 2 puff INHALATION RT-BID 03/28/14 03/18/17 History [Symbicort 160-4.5 Mcg Inhaler] Albuterol Inhaler [Ventolin Hfa 2 puff INHALATION RT-Q6H PRN 09/05/15 03/18/17 History Inhaler] Albuterol Nebulized [Ventolin 2.5 mg INHALATION RT-QID PRN 09/05/15 03/18/17 History Nebulized] Omeprazole 20 mg PO DAILY 09/05/15 03/18/17 History Venlafaxine HCl [Effexor XR] 150 mg PO HS 09/05/15 03/18/17 History clonazePAM [KlonoPIN] 1 mg PO BID PRN 10/20/15 03/18/17 History Calcium Carbonate/Vitamin D3 1 tab PO BID 08/25/16 03/18/17 History [Calcium 600-Vit D3 400 Caplet] amLODIPine [Norvasc] 5 mg PO BID 03/18/17 03/18/17 History Allergies Allergy/AdvReac Type Severity Reaction Status Date / Time levofloxacin Allergy Rash/Hives Verified 03/18/17 13:15 ondansetron HCl AdvReac Severe Increased Verified 03/18/17 11:09 [From Zofran (as QT interval hydrochloride)] prochlorperazine edisylate AdvReac Severe Increased Verified 03/18/17 11:09 [From Compazine] QT interval prochlorperazine maleate AdvReac Severe Increased Verified 03/18/17 11:09 [From Compazine] QT Interval Physical Exam Vitals: Vital Signs Temp Pulse Pulse Resp BP BP Pulse Ox 03/19/17 12:24 86 03/19/17 12:14 90 03/19/17 10:33 95 20 03/19/17 10:00 97.9 F 95 20 152/88 93 L 03/19/17 08:00 97.0 F L 97 16 120/81 96 03/19/17 07:36 88 03/19/17 07:22 82 91 L 03/19/17 04:00 97.8 F 85 16 133/80 95 03/19/17 00:00 70 16 144/67 95 03/18/17 20:00 98 F 67 16 168/84 96 03/18/17 19:39 98 03/18/17 16:51 100 03/18/17 16:35 96 03/18/17 14:14 98.8 F 92 18 113/74 92 L 03/18/17 13:26 97.4 F L 97 18 119/76 95 Intake and Output 03/18/17 03/19/17 03/19/17 22:59 06:59 14:59 Intake Total 150 0 160 Balance 150 0 160 Intake: IV 150 0 Levofloxacin 750Mg-D5w 150 0 Pmx 750 mg In Dextrose/ Water 1 150ml.bag @ 100 mls/hr IVPB ONCE STA Rx#: [id number] Oral 160 Other: Voiding Method Toilet Weight 52.2 kg The patient appeared well nourished and normally developed. Vital signs as documented. Head exam is unremarkable. No scleral icterus or corneal arcus noted. Neck is without jugular venous distension, thyromegaly, or carotid bruits. Carotid upstrokes are brisk bilaterally. Lungs are abnormal with diminished breath sounds and prolongation of expiratory phase of breathing and diffuse expiratory wheezes throughout the lung [place] bilaterally.. Cardiac exam reveals the PMI to be normally sized and situated. Rhythm is regular. First and second heart sounds normal. No murmurs, rubs or gallops. Abdominal exam reveals normal bowel sounds, no masses, no organomegaly and no aortic enlargement. Extremities are showing lymphedema in the right upper extremity. Otherwise there is no cyanosis or clubbing. No other abnormalities and the patient adequate pulses bilaterally. Results - Laboratory Findings CBC and BMP: 03/18/17 10:54 03/18/17 10:54 PT/INR, D-dimer PT 10.2 sec (9.0-12.0) 03/18/17 10:54 INR 1.0 (<1.1) 03/18/17 10:54 Abnormal lab findings: Abnormal Labs 03/18/17 03/18/17 03/18/17 10:54 10:54 17:16 WBC 13.0 H Neutrophils # 11.6 H Lymphocytes # 0.8 L BUN 6 L Creatinine 0.49 L Glucose 133 H POC Glucose (mg/dL) 154 H 03/18/17 03/19/17 03/19/17 20:58 05:58 11:49 WBC Neutrophils # Lymphocytes # BUN Creatinine Glucose POC Glucose (mg/dL) 183 H 145 H 181 H - Diagnostic Findings Chest x-ray: image reviewed Assessment and Plan Plan: Assessment 1 acute COPD exacerbation/to a bronchitis with secondary shortness of breath. Mother the patient has advanced COPD with a baseline FEV1 of around 37% of predicted. Her COPD has been relatively well managed with Symbicort. Her last hospitalization for an acute COPD exacerbation was more than one half years back. Her chest x-ray is free of any acute pulmonary infiltration or pneumonia. She is an ex-smoker. 2 metastatic breast cancer post-bilateral mastectomy 3 hypertension Plan Agree on the current treatment. The patient is currently on DuoNeb neb last treatment [id number], IV Solu-Medrol and empiric antibiotic coverage with Levaquin. The patient will ultimately be switched to prednisone burst taper once she is further optimized her COPD is more stable and exacerbation of his recovered. Her outpatient medication include Symbicort and I'll suggest addition of long-acting anticholinergic agent such as Spiriva to further optimize her COPD. She is an ex-smoker. Routine vaccination. Chest x-ray was reviewed. We'll continue to follow.
[2017-03-19] MEDS: BENZONATATE 100 MG CAP PO PRN ×2 (13:21→23:44)
--- NOTE | 2017-03-19 13:47 | P.PN ---
Subjective 56-year-old female one of Dr. Alberts and Dr. Mock for pulmonary with history of right sided breast cancer with metastasis to the right pleura was diagnosed back in 2013. Patient stated that she was in her usual state of health about a week ago when her daughter came down with an upper respiratory tract infection when she developed to have an increased coughing and minimal phlegm production associated with increased shortness breath that did not respond to the analyzer as well as inhalers, so [facility] that did not show any acute infiltrate however she was found to have an acute exacerbation of chronic obstructive pulmonary disease and she was placed on Solu-Medrol 60 mg IV push every 6 hours , she was placed on nebulized treatment DuoNeb 3 mg nebulization 4 times every day, and she was started on Levaquin, her x-ray showed no evidence of pneumonia however there may be an evidence of acute bronchitis. 03/19: Patient seen by Dr. Cross. Patient is on Solu-Medrol 60 mg IV every 6 hours. Pulse ox is 96% on oxygen at 3 L. She continues to have wheezing. She also complains of chills and yellow green sputum production. She has been afebrile. Patient will be transferred to [facility] floor today. Objective - Vital Signs Vital signs: Vital Signs Temp 97.0 F L 03/19/17 08:00 Pulse 97 03/19/17 08:00 Resp 16 03/19/17 08:00 BP 120/81 03/19/17 08:00 Pulse Ox 96 03/19/17 08:00 Intake & Output 03/18/17 03/19/17 03/19/17 18:59 06:59 18:59 Intake Total 150 160 Balance 150 160 Weight 52.163 kg 52.2 kg Intake: IV 150 Levofloxacin 750Mg-D5w 150 Pmx 750 mg In Dextrose/ Water 1 150ml.bag @ 100 mls/hr IVPB ONCE STA Rx#: [id number] Oral 160 Other: Voiding Method Toilet - Exam General appearance: average body habitus, mild distress - EENT Eyes: anicteric sclerae, EOMI, PERRLA, no ptosis, no scleral icterus, normal appearance ENT: hearing grossly normal, NA/AT, normal oropharynx, no thrush Ears: bilateral: normal - Neck Neck: no lymphadenopathy, normal ROM, no rigidity, no stridor, no thyromegaly Carotids: bilateral: upstroke normal Thyroid: bilateral: normal size - Respiratory Respiratory: bilateral: diminished, wheezing, prolonged expiration, negative: dullness, rales, rhonchi - Cardiovascular Rhythm: regular Heart sounds: normal: S1, S2 Abnormal Heart Sounds: no systolic murmur, no S3 Gallop, no S4 Gallop, no click - Gastrointestinal General gastrointestinal: normal bowel sounds, soft, no splenomegaly, no tenderness, no umbilical hernia, no ventral hernia - Integumentary Integumentary: normal, normal turgor - Neurologic Neurologic: CNII-XII intact - Musculoskeletal Musculoskeletal: generalized weakness, strength equal bilaterally - Psychiatric Psychiatric: A&O x's 3, appropriate affect, intact judgment & insight - Labs CBC & Chem 7: 03/18/17 10:54 03/18/17 10:54 Labs: Abnormal Lab Results - Last 24 Hours (Table) 03/18/17 03/18/17 03/18/17 Range/Units 10:54 10:54 17:16 WBC 13.0 H (3.8-10.6) k/uL Neutrophils # 11.6 H (1.3-7.7) k/uL Lymphocytes # 0.8 L (1.0-4.8) k/uL BUN 6 L (7-17) mg/dL Creatinine 0.49 L (0.52-1.04) mg/dL Glucose 133 H (74-99) mg/dL POC Glucose (mg/dL) 154 H (75-99) mg/dL 03/18/17 03/19/17 Range/Units 20:58 05:58 WBC (3.8-10.6) k/uL Neutrophils # (1.3-7.7) k/uL Lymphocytes # (1.0-4.8) k/uL BUN (7-17) mg/dL Creatinine (0.52-1.04) mg/dL Glucose (74-99) mg/dL POC Glucose (mg/dL) 183 H 145 H (75-99) mg/dL Assessment and Plan Plan: 1. Acute respiratory insufficiency secondary to acute exacerbation of COPD. Start the patient on Solu-Medrol 60 mg IV push every 6 hours, DuoNeb 3 male nebulization 4 times every day, Pulmicort twice every day, start the patient also on Augmentin, sputum culture if needed, continue oxygen support, pulmonary consultation from Dr. Cross. 2. 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 3. Depression, recurrent. Continue Effexor XR 150 mg orally once every day. 4. Acute bronchitis. Continue Levaquin 500 mg IV piggyback daily. 5. Generalized Anxiety disorder. Continue Klonopin 1 mg orally twice every day. 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 7. DVT prophylaxis. Continue heparin 5000 units subcutaneously every 12 hours. 8. GI prophylaxis. Continue PPI. Discharge Plan: Return home Impression and plan of care have been directed as dictated by the signing physician. Arleen Gamez nurse practitioner acting as scribe for signing physician.
[2017-03-19 17:28] LABS: Glucose,Whole Blood 141 mg/dL (75-99)
[2017-03-19 21:05] LABS: Glucose,Whole Blood 159 mg/dL (75-99)
[2017-03-19] MEDS: VENLAFAXINE HCL ER 150 MG CAP PO SCH (21:50)
[2017-03-19] MEDS: clonazePAM 1 MG TAB PO PRN (21:50)
[2017-03-20] MEDS: methylPREDNISolone SOD SUCCI 125 MG/2 ML VIAL IV SCH ×3 (05:42→23:26)
[2017-03-20 07:25] LABS: Glucose,Whole Blood 155 mg/dL (75-99)
[2017-03-20] MEDS: CALCIUM CARB-VIT D 500MG-200UN 1 EACH TAB PO SCH ×2 (07:37→17:22)
[2017-03-20] MEDS: AMOXIC-POT CLAV 875-125MG 1 EACH TAB PO SCH ×2 (07:37→21:45)
[2017-03-20] MEDS: ANASTROZOLE 1 MG TAB PO SCH (07:37)
[2017-03-20] MEDS: HEPARIN SODIUM,PORCINE 5,000 UNIT/ML 1 ML VIAL SQ SCH ×3 (07:38→23:26)
[2017-03-20] MEDS: INSULIN LISPRO (humaLOG) 300 UNIT/3 ML VIAL SQ SCH ×4 (07:38→21:45)
[2017-03-20] MEDS: amLODIPine 5 MG TAB PO SCH ×2 (07:38→21:45)
[2017-03-20] MEDS: PANTOPRAZOLE 40 MG TABLET PO SCH (07:38)
[2017-03-20] MEDS: IPRATROPIUM-ALBUTEROL 3 ML NEB INHALATION SCH ×4 (08:26→19:45)
[2017-03-20] MEDS: SYMBICORT 160-4.5 MCG INHALER INHALATION SCH ×2 (08:26→19:45)
--- NOTE | 2017-03-20 10:32 | XR ---
EXAMINATION TYPE: XR chest 2V DATE OF EXAM: 03/20/2017 COMPARISON: 03/18/2017 INDICATION: Left lung infiltrate, COPD TECHNIQUE: Frontal and lateral views of the chest are obtained. FINDINGS: The heart size is normal. The pulmonary vasculature is normal. There is some mild linear opacity within the right lung likely chronic scarring. Surgical clips are i n the right axillary region. There is blunting the right costophrenic angle. Small right pleural effu praneeth may be present.. IMPRESSION: 1. Lung findings are stable from prior examination. Small right pleural effusion may be present. Thes e findings may be chronic.
--- NOTE | 2017-03-20 11:07 | P.PN ---
Subjective 56-year-old female one of Dr. Alberts and Dr. Mock for pulmonary with history of right sided breast cancer with metastasis to the right pleura was diagnosed back in 2013. Patient stated that she was in her usual state of health about a week ago when her daughter came down with an upper respiratory tract infection when she developed to have an increased coughing and minimal phlegm production associated with increased shortness breath that did not respond to the analyzer as well as inhalers, so she ended up coming to the ER at [facility] had a chest x-ray that did not show any acute infiltrate however she was found to have an acute exacerbation of chronic obstructive pulmonary disease and she was placed on Solu-Medrol 60 mg IV push every 6 hours , she was placed on nebulized treatment DuoNeb 3 mg nebulization 4 times every day, and she was started on Levaquin, her x-ray showed no evidence of pneumonia however there may be an evidence of acute bronchitis. 03/19: Patient seen by Dr. Cross. Patient is on Solu-Medrol 60 mg IV every 6 hours. Pulse ox is 96% on oxygen at 3 L. She continues to have wheezing. She also complains of chills and yellow green sputum production. She has been afebrile. [facility] 03/20: Patient is now seen on the [facility] floor. She completed tinniest have shortness of breath. Lung sounds are slightly better from yesterday but she continues to have wheezing. Solu-Medrol will be decreased to 60 every 8 hours. Repeat chest x-ray has been ordered. Patient is followed by Dr. Cross Objective - Vital Signs Vital signs: Vital Signs Temp 97.1 F L 03/20/17 07:00 Pulse 86 03/20/17 08:36 Resp 16 03/20/17 08:00 BP 121/81 03/20/17 07:00 Pulse Ox 95 03/20/17 08:28 Intake & Output 03/19/17 03/20/17 03/20/17 18:59 06:59 18:59 Intake Total 1120 480 Balance 1120 480 Intake: Oral 1120 480 Other: Voiding Method Toilet Toilet Toilet # Voids 2 1 1 - Exam General appearance: average body habitus, mild distress - EENT Eyes: anicteric sclerae, EOMI, PERRLA, no ptosis, no scleral icterus, normal appearance ENT: hearing grossly normal, NA/AT, normal oropharynx, no thrush Ears: bilateral: normal - Neck Neck: no lymphadenopathy, normal ROM, no rigidity, no stridor, no thyromegaly Carotids: bilateral: upstroke normal Thyroid: bilateral: normal size - Respiratory Respiratory: bilateral: diminished, wheezing, prolonged expiration, rhonchi in the left base negative: dullness, rales, - Cardiovascular Rhythm: regular Heart sounds: normal: S1, S2 Abnormal Heart Sounds: no systolic murmur, no S3 Gallop, no S4 Gallop, no click - Gastrointestinal General gastrointestinal: normal bowel sounds, soft, no splenomegaly, no tenderness, no umbilical hernia, no ventral hernia - Integumentary Integumentary: normal, normal turgor - Neurologic Neurologic: CNII-XII intact - Musculoskeletal Musculoskeletal: generalized weakness, strength equal bilaterally - Psychiatric Psychiatric: A&O x's 3, appropriate affect, intact judgment & insight - Labs CBC & Chem 7: 03/18/17 10:54 03/18/17 10:54 Labs: Abnormal Lab Results - Last 24 Hours (Table) 03/19/17 03/19/17 03/19/17 Range/Units 11:49 17:26 21:03 POC Glucose (mg/dL) 181 H 141 H 159 H (75-99) mg/dL 03/20/17 Range/Units 07:18 POC Glucose (mg/dL) 155 H (75-99) mg/dL Microbiology - Last 24 Hours (Table) 03/18/17 10:54 Blood Culture - Preliminary Blood No Growth after 24 hours Assessment and Plan Plan: 1. Acute respiratory insufficiency secondary to acute exacerbation of COPD. Decrease Solu-Medrol 60 mg IV push to every 8 hours, DuoNeb 3 male nebulization 4 times every day, Pulmicort twice every day, start the patient also on Augmentin, sputum culture if needed, continue oxygen support, pulmonary consultation from Dr. Cross. Repeat chest x-ray ordered to rule out pneumonia. 2. 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 3. Depression, recurrent. Continue Effexor XR 150 mg orally once every day. 4. Acute bronchitis. Continue Levaquin 500 mg IV piggyback daily. 5. Generalized Anxiety disorder. Continue Klonopin 1 mg orally twice every day. 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 7. DVT prophylaxis. Continue heparin 5000 units subcutaneously every 12 hours. 8. GI prophylaxis. Continue PPI. Discharge Plan: Return home Impression and plan of care have been directed as dictated by the signing physician. Arleen Gamez nurse practitioner acting as scribe for signing physician.
[2017-03-20 11:43] LABS: Glucose,Whole Blood 160 mg/dL (75-99)
[2017-03-20] MEDS: BENZONATATE 100 MG CAP PO PRN ×2 (13:55→21:45)
--- NOTE | 2017-03-20 13:58 | P.PN ---
Subjective 56-year-old female patient with known history of COPD with a baseline FEV1 of 37 % of predicted, maintained on Symbicort as maintenance inhaler on outpatient basis. Her last hospitalization for an acute COPD exacerbation was more than one half years back. The patient also has been diagnosed having metastatic breast cancer with involvement of the pleura and the patient has been stable and and she had excellent response with Arimidex. She comes in for symptoms typical of an acute COPD exacerbation. She is having increased dyspnea, chest tightness, wheezing and shortness of breath and her chest x-ray is showing no evidence of an acute pneumonia or infiltration. No hemoptysis. No pleurisy. She was started on DuoNeb the last treatment [id number] along with IV Solu Medrol. She was started on empiric antibiotic coverage with Levaquin. Slightly better compared to yesterday. An ex-smoker and she quit smoking more than 2 years ago. She has home O2 and she has been the eighth the using it only at nighttime. She is been exposed to extensive amount of secondhand smoking and she herself has been a heavy smoker and she quit 2 years ago. On 03/20/2017 the patient is slowly improving. She is being treated for an acute COPD exacerbation. She is less short of breath compared to yesterday. She is ambulating in her room. Cough and congestion and wheezing is improved although not fully recovered.. A chest x-ray was also done that showed small right-sided pleural effusion. Rest of the findings are essentially chronic. Objective - Vital Signs Vital signs: Vital Signs Temp 97.1 F L 03/20/17 07:00 Pulse 90 03/20/17 12:56 Resp 16 03/20/17 08:00 BP 121/81 03/20/17 07:00 Pulse Ox 95 03/20/17 08:28 Intake & Output 03/19/17 03/20/17 03/20/17 18:59 06:59 18:59 Intake Total 1120 480 Balance 1120 480 Intake: Oral 1120 480 Other: Voiding Method Toilet Toilet Toilet # Voids 2 1 1 - Exam The patient appeared well nourished and normally developed. Vital signs as documented. Head exam is unremarkable. No scleral icterus or corneal arcus noted. Neck is without jugular venous distension, thyromegaly, or carotid bruits. Carotid upstrokes are brisk bilaterally. Lungs are abnormal with diminished breath sounds and prolongation of expiratory phase of breathing and diffuse expiratory wheezes throughout the lung [place] bilaterally.. Cardiac exam reveals the PMI to be normally sized and situated. Rhythm is regular. First and second heart sounds normal. No murmurs, rubs or gallops. Abdominal exam reveals normal bowel sounds, no masses, no organomegaly and no aortic enlargement. Extremities are showing lymphedema in the right upper extremity. Otherwise there is no cyanosis or clubbing. No other abnormalities and the patient adequate pulses bilaterally. - Labs CBC & Chem 7: 03/18/17 10:54 03/18/17 10:54 Labs: Abnormal Lab Results - Last 24 Hours (Table) 03/19/17 03/19/17 03/20/17 Range/Units 17:26 21:03 07:18 POC Glucose (mg/dL) 141 H 159 H 155 H (75-99) mg/dL 03/20/17 Range/Units 11:36 POC Glucose (mg/dL) 160 H (75-99) mg/dL Microbiology - Last 24 Hours (Table) 03/18/17 10:54 Blood Culture - Preliminary Blood No Growth after 48 hours Assessment and Plan Plan: Assessment 1 acute COPD exacerbation/to a bronchitis with secondary shortness of breath. Mother the patient has advanced COPD with a baseline FEV1 of around 37% of predicted. Her COPD has been relatively well managed with Symbicort. Her last hospitalization for an acute COPD exacerbation was more than one half years back. Her chest x-ray is free of any acute pulmonary infiltration or pneumonia. She is an ex-smoker. 2 metastatic breast cancer post-bilateral mastectomy 3 hypertension Plan Continue same treatment. Continue high-dose sodium level. Chest x-ray was reviewed from today and there is no acute interval change. Clinically improved compared to yesterday. We'll continue same treatment. Evaluate this patient in a.m.
[2017-03-20 17:13] LABS: Glucose,Whole Blood 166 mg/dL (75-99)
[2017-03-20 20:46] LABS: Glucose,Whole Blood 187 mg/dL (75-99)
[2017-03-20] MEDS: VENLAFAXINE HCL ER 150 MG CAP PO SCH (21:45)
[2017-03-20] MEDS: clonazePAM 1 MG TAB PO PRN (22:01)
[2017-03-21 07:22] LABS: CHCM 33.1; HCT 45.8 % (34.0-46.0); HDW 2.26; HGB 15.2 gm/dL (11.4-16.0); MCH 31.3 pg (25.0-35.0); MCHC 33.2 g/dL (31.0-37.0); Mean Platelet Volume 6.4; RBC 4.87 m/uL (3.80-5.40); RDW 13.9 % (11.5-15.5); WBC 18.3 k/uL (3.8-10.6)
[2017-03-21 07:34] LABS: Anion Gap 9 mmol/L; Blood Urea Nitrogen 17 mg/dL (7-17); Calcium 9.5 mg/dL (8.4-10.2); Carbon Dioxide 34 mmol/L (22-30); Chloride 96 mmol/L (98-107); Glucose 154 mg/dL (74-99); Non-African American GFR(MDRD) >60 (>60 ml/min/1.73 sqM); Potassium 4.5 mmol/L (3.5-5.1); Sodium 139 mmol/L (137-145)
[2017-03-21 07:45] LABS: Glucose,Whole Blood 152 mg/dL (75-99)
[2017-03-21] MEDS: methylPREDNISolone SOD SUCCI 125 MG/2 ML VIAL IV SCH ×4 (08:13→23:52)
[2017-03-21] MEDS: HEPARIN SODIUM,PORCINE 5,000 UNIT/ML 1 ML VIAL SQ SCH ×3 (08:13→23:52)
[2017-03-21] MEDS: CALCIUM CARB-VIT D 500MG-200UN 1 EACH TAB PO SCH ×2 (08:13→17:33)
[2017-03-21] MEDS: amLODIPine 5 MG TAB PO SCH ×2 (08:13→22:21)
[2017-03-21] MEDS: ANASTROZOLE 1 MG TAB PO SCH ×2 (08:13→08:25)
[2017-03-21] MEDS: AMOXIC-POT CLAV 875-125MG 1 EACH TAB PO SCH ×2 (08:13→22:21)
[2017-03-21] MEDS: PANTOPRAZOLE 40 MG TABLET PO SCH (08:14)
[2017-03-21] MEDS: INSULIN LISPRO (humaLOG) 300 UNIT/3 ML VIAL SQ SCH ×4 (08:25→22:22)
[2017-03-21] MEDS: IPRATROPIUM-ALBUTEROL 3 ML NEB INHALATION SCH ×4 (08:39→20:18)
[2017-03-21] MEDS: SYMBICORT 160-4.5 MCG INHALER INHALATION SCH ×2 (08:39→20:18)
[2017-03-21 11:42] LABS: Glucose,Whole Blood 135 mg/dL (75-99)
--- NOTE | 2017-03-21 11:59 | P.PN ---
Subjective 56-year-old female one of Dr. Alberts and Dr. Mock for pulmonary with history of right sided breast cancer with metastasis to the right pleura was diagnosed back in 2013. Patient stated that she was in her usual state of health about a week ago when her daughter came down with an upper respiratory tract infection when she developed to have an increased coughing and minimal phlegm production associated with increased shortness breath that did not respond to the analyzer as well as inhalers, so [facility] that did not show any acute infiltrate however she was found to have an acute exacerbation of chronic obstructive pulmonary disease and she was placed on Solu-Medrol 60 mg IV push every 6 hours , she was placed on nebulized treatment DuoNeb 3 mg nebulization 4 times every day, and she was started on Levaquin, her x-ray showed no evidence of pneumonia however there may be an evidence of acute bronchitis. 03/19: Patient seen by Dr. Cross. Patient is on Solu-Medrol 60 mg IV every 6 hours. Pulse ox is 96% on oxygen at 3 L. She continues to have wheezing. She also complains of chills and yellow green sputum production. She has been afebrile. [facility] 03/20: Patient is now seen on the [facility] floor. She completed tinniest have shortness of breath. Lung sounds are slightly better from yesterday but she continues to have wheezing. Solu-Medrol will be decreased to 60 every 8 hours. Repeat chest x-ray has been ordered. Patient is followed by Dr. Cross 03/21: Patient's breathing status is gradually improving but she does complain of sinus congestion and nasal congestion. Flonase added. Solu-Medrol will be decreased to 40 mg every 8 hours and start prednisone in the morning. Anticipate discharge home tomorrow. Objective - Vital Signs Vital signs: Vital Signs Temp 96.8 F L 03/21/17 07:00 Pulse 88 03/21/17 08:48 Resp 20 03/21/17 07:00 BP 133/97 03/21/17 07:00 Pulse Ox 94 L 03/21/17 08:40 Intake & Output 03/20/17 03/21/17 03/21/17 18:59 06:59 18:59 Intake Total 720 480 Balance 720 480 Intake: Oral 720 480 Other: Voiding Method Toilet Toilet # Voids 2 1 - Exam General appearance: average body habitus, mild distress - EENT Eyes: anicteric sclerae, EOMI, PERRLA, no ptosis, no scleral icterus, normal appearance ENT: hearing grossly normal, NA/AT, normal oropharynx, no thrush Ears: bilateral: normal - Neck Neck: no lymphadenopathy, normal ROM, no rigidity, no stridor, no thyromegaly Carotids: bilateral: upstroke normal Thyroid: bilateral: normal size - Respiratory Respiratory: bilateral: diminished, wheezing, prolonged expiration, rhonchi in the left base negative: dullness, rales, - Cardiovascular Rhythm: regular Heart sounds: normal: S1, S2 Abnormal Heart Sounds: no systolic murmur, no S3 Gallop, no S4 Gallop, no click - Gastrointestinal General gastrointestinal: normal bowel sounds, soft, no splenomegaly, no tenderness, no umbilical hernia, no ventral hernia - Integumentary Integumentary: normal, normal turgor - Neurologic Neurologic: CNII-XII intact - Musculoskeletal Musculoskeletal: generalized weakness, strength equal bilaterally - Psychiatric Psychiatric: A&O x's 3, appropriate affect, intact judgment & insight - Labs CBC & Chem 7: 03/21/17 06:55 03/21/17 06:55 Labs: Abnormal Lab Results - Last 24 Hours (Table) 03/20/17 03/20/17 03/20/17 Range/Units 11:36 17:05 20:44 WBC (3.8-10.6) k/uL Chloride (98-107) mmol/L Carbon Dioxide (22-30) mmol/L Creatinine (0.52-1.04) mg/dL Glucose (74-99) mg/dL POC Glucose (mg/dL) 160 H 166 H 187 H (75-99) mg/dL 03/21/17 03/21/17 03/21/17 Range/Units 06:55 06:55 07:40 WBC 18.3 H (3.8-10.6) k/uL Chloride 96 L (98-107) mmol/L Carbon Dioxide 34 H (22-30) mmol/L Creatinine 0.48 L (0.52-1.04) mg/dL Glucose 154 H (74-99) mg/dL POC Glucose (mg/dL) 152 H (75-99) mg/dL Microbiology - Last 24 Hours (Table) 03/18/17 10:54 Blood Culture - Preliminary Blood No Growth after 48 hours Assessment and Plan Plan: 1. Acute respiratory insufficiency secondary to acute exacerbation of COPD. Decrease Solu-Medrol 40 mg IV push to every 8 hours, DuoNeb 3 male nebulization 4 times every day, Pulmicort twice every day, start the patient also on Augmentin, sputum culture if needed, continue oxygen support, pulmonary consultation from Dr. Cross. Repeat chest x-ray ordered to rule out pneumonia. 2. 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 3. Depression, recurrent. Continue Effexor XR 150 mg orally once every day. 4. Acute bronchitis. Continue Levaquin 500 mg IV piggyback daily. 5. Generalized Anxiety disorder. Continue Klonopin 1 mg orally twice every day. 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 7. DVT prophylaxis. Continue heparin 5000 units subcutaneously every 12 hours. 8. GI prophylaxis. Continue PPI. Discharge Plan: Return home Impression and plan of care have been directed as dictated by the signing physician. Arleen Gamez nurse practitioner acting as scribe for signing physician.
[2017-03-21] MEDS: FLUTICASONE 50MCG/SPRAY NASAL 16GM EA NOSTRIL SCH (12:14)
[2017-03-21] MEDS: BENZONATATE 100 MG CAP PO PRN (12:15)
[2017-03-21] MEDS: guaiFENesin 600 MG TABLET.ER PO SCH ×2 (12:15→22:21)
--- NOTE | 2017-03-21 13:43 | P.PN ---
Subjective Principal diagnosis: Acute COPD exacerbation 56-year-old female patient with known history of COPD with a baseline FEV1 of 37 % of predicted, maintained on Symbicort as maintenance inhaler on outpatient basis. Her last hospitalization for an acute COPD exacerbation was more than one half years back. The patient also has been diagnosed having metastatic breast cancer with involvement of the pleura and the patient has been stable and and she had excellent response with Arimidex. She comes in for symptoms typical of an acute COPD exacerbation. She is having increased dyspnea, chest tightness, wheezing and shortness of breath and her chest x-ray is showing no evidence of an acute pneumonia or infiltration. No hemoptysis. No pleurisy. She was started on DuoNeb the last treatment [id number] along with IV Solu Medrol. She was started on empiric antibiotic coverage with Levaquin. Slightly better compared to yesterday. An ex-smoker and she quit smoking more than 2 years ago. She has home O2 and she has been the eighth the using it only at nighttime. She is been exposed to extensive amount of secondhand smoking and she herself has been a heavy smoker and she quit 2 years ago. On 03/20/2017 the patient is slowly improving. She is being treated for an acute COPD exacerbation. She is less short of breath compared to yesterday. She is ambulating in her room. Cough and congestion and wheezing is improved although not fully recovered.. A chest x-ray was also done that showed small right-sided pleural effusion. Rest of the findings are essentially chronic. On 03/21/2017, patient is having worsening symptoms of COPD including symptoms of cough wheezing shortness of breath, more so at the time of my evaluation. Apparently the patient was feeling better earlier, but at the time of my examination, patient was having cough wheezing and shortness of breath. Indeed on physical examination she sounded quite tight and wheezy. CBC shows leukocytosis and basic metabolic profile is relatively normal. Chest x-ray showed small right sided pleural effusion, no clear-cut evidence of infiltrate. Objective - Vital Signs Vital signs: Vital Signs Temp 96.8 F L 03/21/17 07:00 Pulse 84 03/21/17 12:10 Resp 20 03/21/17 08:00 BP 133/97 03/21/17 07:00 Pulse Ox 94 L 03/21/17 08:40 Intake & Output 03/20/17 03/21/17 03/21/17 18:59 06:59 18:59 Intake Total 720 480 Balance 720 480 Intake: Oral 720 480 Other: Voiding Method Toilet Toilet Toilet # Voids 2 1 - Exam Physical Exam: Revealed a 56-year-old female in mild respiratory distress. HEENT:[Neck is supple.] [No neck masses.] [No thyromegaly.] [No JVD.] Chest: [Diffuse rhonchi and wheezes noted bilaterally.] Cardiac Exam: [Normal S1 and S2, no S3 gallop, no murmur.] Abdomen: [Soft, nontender, no megaly, no rebound, no guarding, normal bowel sounds.] Extremities: [No clubbing, no edema, no cyanosis.] Neurological Exam: [No focal neurologic deficit.] - Labs CBC & Chem 7: 03/21/17 06:55 03/21/17 06:55 Labs: Abnormal Lab Results - Last 24 Hours (Table) 03/20/17 03/20/17 03/21/17 Range/Units 17:05 20:44 06:55 WBC 18.3 H (3.8-10.6) k/uL Chloride (98-107) mmol/L Carbon Dioxide (22-30) mmol/L Creatinine (0.52-1.04) mg/dL Glucose (74-99) mg/dL POC Glucose (mg/dL) 166 H 187 H (75-99) mg/dL 03/21/17 03/21/17 03/21/17 Range/Units 06:55 07:40 11:39 WBC (3.8-10.6) k/uL Chloride 96 L (98-107) mmol/L Carbon Dioxide 34 H (22-30) mmol/L Creatinine 0.48 L (0.52-1.04) mg/dL Glucose 154 H (74-99) mg/dL POC Glucose (mg/dL) 152 H 135 H (75-99) mg/dL Microbiology - Last 24 Hours (Table) 03/18/17 10:54 Blood Culture - Preliminary Blood No Growth after 72 hours Assessment and Plan Plan: 1 acute COPD exacerbation/to a bronchitis with secondary shortness of breath. Mother the patient has advanced COPD with a baseline FEV1 of around 37% of predicted. Her COPD has been relatively well managed with Symbicort. Her last hospitalization for an acute COPD exacerbation was more than one half years back. Her chest x-ray is free of any acute pulmonary infiltration or pneumonia. She is an ex-smoker. 2 metastatic breast cancer post-bilateral mastectomy 3 hypertension Recommendation: Continue present treatment plan, patient is clearly not ready for discharge planning today, we'll reevaluate in the next 24 hours and make further decisions. We will place back on Solu-Medrol, not quite ready to be switched to prednisone at this point. Time with Patient: Less than 30
[2017-03-21] MEDS ORDERED: methylPREDNISolone SOD SUCCI 40 MG/ML 1 ML VIAL IV SCH (16:00)
[2017-03-21 17:37] LABS: Glucose,Whole Blood 128 mg/dL (75-99)
[2017-03-21 21:19] LABS: Glucose,Whole Blood 219 mg/dL (75-99)
[2017-03-21] MEDS: clonazePAM 1 MG TAB PO PRN (22:21)
[2017-03-21] MEDS: VENLAFAXINE HCL ER 150 MG CAP PO SCH (22:21)
[2017-03-22] MEDS: methylPREDNISolone SOD SUCCI 125 MG/2 ML VIAL IV SCH ×4 (06:01→23:13)
[2017-03-22] MEDS: SYMBICORT 160-4.5 MCG INHALER INHALATION SCH ×2 (07:13→19:05)
[2017-03-22] MEDS: IPRATROPIUM-ALBUTEROL 3 ML NEB INHALATION SCH ×4 (07:14→19:04)
[2017-03-22 07:23] LABS: Glucose,Whole Blood 147 mg/dL (75-99)
[2017-03-22] MEDS: guaiFENesin 600 MG TABLET.ER PO SCH ×2 (08:20→20:55)
[2017-03-22] MEDS: FLUTICASONE 50MCG/SPRAY NASAL 16GM EA NOSTRIL SCH (08:20)
[2017-03-22] MEDS: PANTOPRAZOLE 40 MG TABLET PO SCH (08:21)
[2017-03-22] MEDS: HEPARIN SODIUM,PORCINE 5,000 UNIT/ML 1 ML VIAL SQ SCH ×3 (08:22→23:13)
[2017-03-22] MEDS: CALCIUM CARB-VIT D 500MG-200UN 1 EACH TAB PO SCH ×2 (08:23→17:02)
[2017-03-22] MEDS: AMOXIC-POT CLAV 875-125MG 1 EACH TAB PO SCH ×3 (08:23→23:12)
[2017-03-22] MEDS: amLODIPine 5 MG TAB PO SCH ×2 (08:23→20:56)
[2017-03-22] MEDS: ANASTROZOLE 1 MG TAB PO SCH (08:23)
[2017-03-22] MEDS: INSULIN LISPRO (humaLOG) 300 UNIT/3 ML VIAL SQ SCH ×4 (08:24→20:57)
[2017-03-22] MEDS ORDERED: predniSONE 20 MG TAB PO SCH (09:00)
--- NOTE | 2017-03-22 11:11 | P.PN ---
Subjective 56-year-old female patient with known history of COPD with a baseline FEV1 of 37 % of predicted, maintained on Symbicort as maintenance inhaler on outpatient basis. Her last hospitalization for an acute COPD exacerbation was more than one half years back. The patient also has been diagnosed having metastatic breast cancer with involvement of the pleura and the patient has been stable and and she had excellent response with Arimidex. She comes in for symptoms typical of an acute COPD exacerbation. She is having increased dyspnea, chest tightness, wheezing and shortness of breath and her chest x-ray is showing no evidence of an acute pneumonia or infiltration. No hemoptysis. No pleurisy. She was started on DuoNeb the last treatment [id number] along with IV Solu Medrol. She was started on empiric antibiotic coverage with Levaquin. Slightly better compared to yesterday. An ex-smoker and she quit smoking more than 2 years ago. She has home O2 and she has been the eighth the using it only at nighttime. She is been exposed to extensive amount of secondhand smoking and she herself has been a heavy smoker and she quit 2 years ago. On 03/20/2017 the patient is slowly improving. She is being treated for an acute COPD exacerbation. She is less short of breath compared to yesterday. She is ambulating in her room. Cough and congestion and wheezing is improved although not fully recovered.. A chest x-ray was also done that showed small right-sided pleural effusion. Rest of the findings are essentially chronic. On 03/21/2017, patient is having worsening symptoms of COPD including symptoms of cough wheezing shortness of breath, more so at the time of my evaluation. Apparently the patient was feeling better earlier, but at the time of my examination, patient was having cough wheezing and shortness of breath. Indeed on physical examination she sounded quite tight and wheezy. CBC shows leukocytosis and basic metabolic profile is relatively normal. Chest x-ray showed small right sided pleural effusion, no clear-cut evidence of infiltrate. The patient is seen again today 03/22/2017 in follow-up on the regular medical floor. She is awake and alert in no acute distress. She's been up ambulating without distress. She is improved today as compared to yesterday but not quite back to her baseline. She is maintaining O2 saturations in the mid 90s on 3 L/ m per nasal cannula. She's been afebrile. Blood cultures revealed no growth. Objective - Vital Signs Vital signs: Vital Signs Temp 97.1 F L 03/22/17 07:00 Pulse 80 03/22/17 07:29 Resp 20 03/22/17 07:00 BP 134/84 03/22/17 07:00 Pulse Ox 95 03/22/17 07:00 Intake & Output 03/21/17 03/22/17 03/22/17 18:59 06:59 18:59 Intake Total 240 Balance 240 Intake: Oral 240 Other: Voiding Method Toilet Toilet # Voids 2 2 - Exam GENERAL EXAM: Alert, active, comfortable in no apparent distress. HEAD: Normocephalic. EYES: Normal reaction of pupils, equal size. NOSE: Clear with pink turbinates. THROAT: No erythema or exudates. NECK: No masses, no JVD. CHEST: No chest wall deformity. LUNGS: Equal air entry with faint end expiratory wheeze. Diminished. CVS: S1 and S2 normal with no audible murmurs, regular rhythm. ABDOMEN: No hepatosplenomegaly, normal bowel sounds, no guarding or rigidity. SPINE: No scoliosis or deformity SKIN: No rashes CENTRAL NERVOUS SYSTEM: No focal deficits, tone is normal in all 4 extremities. Extremities: There is no peripheral edema. No clubbing, no cyanosis. Peripheral pulses are intact. - Labs CBC & Chem 7: 03/21/17 06:55 03/21/17 06:55 Labs: Abnormal Lab Results - Last 24 Hours (Table) 03/21/17 03/21/17 03/21/17 Range/Units 11:39 17:35 21:16 POC Glucose (mg/dL) 135 H 128 H 219 H (75-99) mg/dL 03/22/17 Range/Units 07:21 POC Glucose (mg/dL) 147 H (75-99) mg/dL Microbiology - Last 24 Hours (Table) 03/18/17 10:54 Blood Culture - Preliminary Blood No Growth after 72 hours Assessment and Plan Plan: Impression: 1 acute COPD exacerbation/to a bronchitis with secondary shortness of breath. Mother the patient has advanced COPD with a baseline FEV1 of around 37% of predicted. Her COPD has been relatively well managed with Symbicort. Her last hospitalization for an acute COPD exacerbation was more than one half years back. Her chest x-ray is free of any acute pulmonary infiltration or pneumonia. She is an ex-smoker. 2 metastatic breast cancer post-bilateral mastectomy 3 hypertension Plan: The patient was seen and evaluated by Dr. Silva. She is improved today as compared to yesterday but not quite back to her baseline. We'll continue with IV Solu-Medrol, bronchodilators, antibiotics. We'll increase her activity as tolerated. Plan for possible discharge in the next 24-48 hours.
--- NOTE | 2017-03-22 11:15 | P.PN ---
Subjective 56-year-old female one of Dr. Alberts and Dr. Mock for pulmonary with history of right sided breast cancer with metastasis to the right pleura was diagnosed back in 2013. Patient stated that she was in her usual state of health about a week ago when her daughter came down with an upper respiratory tract infection when she developed to have an increased coughing and minimal phlegm production associated with increased shortness breath that did not respond to the analyzer as well as inhalers, so [facility] that did not show any acute infiltrate however she was found to have an acute exacerbation of chronic obstructive pulmonary disease and she was placed on Solu-Medrol 60 mg IV push every 6 hours , she was placed on nebulized treatment DuoNeb 3 mg nebulization 4 times every day, and she was started on Levaquin, her x-ray showed no evidence of pneumonia however there may be an evidence of acute bronchitis. 03/19: Patient seen by Dr. Cross. Patient is on Solu-Medrol 60 mg IV every 6 hours. Pulse ox is 96% on oxygen at 3 L. She continues to have wheezing. She also complains of chills and yellow green sputum production. She has been afebrile. [facility] 03/20: Patient is now seen on the [facility] floor. She completed tinniest have shortness of breath. Lung sounds are slightly better from yesterday but she continues to have wheezing. Solu-Medrol will be decreased to 60 every 8 hours. Repeat chest x-ray has been ordered. Patient is followed by Dr. Cross 03/21: Patient's breathing status is gradually improving but she does complain of sinus congestion and nasal congestion. Flonase added. Solu-Medrol will be decreased to 40 mg every 8 hours and start prednisone in the morning. Anticipate discharge home tomorrow. 03/22: Dr. Lopez had changed her IV Solu-Medrol back to 60 every 6 hours. He is planning to switch her to prednisone tomorrow and discharge tomorrow. Patient is up and ambulated in the hallway. She continues to have sputum and cough today. Sputum culture will be requested. Objective - Vital Signs Vital signs: Vital Signs Temp 97.1 F L 03/22/17 07:00 Pulse 80 03/22/17 07:29 Resp 20 03/22/17 07:00 BP 134/84 03/22/17 07:00 Pulse Ox 95 03/22/17 07:00 Intake & Output 03/21/17 03/22/17 03/22/17 18:59 06:59 18:59 Intake Total 240 Balance 240 Intake: Oral 240 Other: Voiding Method Toilet Toilet # Voids 2 2 - Exam General appearance: average body habitus, mild distress - EENT Eyes: anicteric sclerae, EOMI, PERRLA, no ptosis, no scleral icterus, normal appearance ENT: hearing grossly normal, NA/AT, normal oropharynx, no thrush Ears: bilateral: normal - Neck Neck: no lymphadenopathy, normal ROM, no rigidity, no stridor, no thyromegaly Carotids: bilateral: upstroke normal Thyroid: bilateral: normal size - Respiratory Respiratory: bilateral: diminished, wheezing, prolonged expiration, rhonchi in the left base negative: dullness, rales, - Cardiovascular Rhythm: regular Heart sounds: normal: S1, S2 Abnormal Heart Sounds: no systolic murmur, no S3 Gallop, no S4 Gallop, no click - Gastrointestinal General gastrointestinal: normal bowel sounds, soft, no splenomegaly, no tenderness, no umbilical hernia, no ventral hernia - Integumentary Integumentary: normal, normal turgor - Neurologic Neurologic: CNII-XII intact - Musculoskeletal Musculoskeletal: generalized weakness, strength equal bilaterally - Psychiatric Psychiatric: A&O x's 3, appropriate affect, intact judgment & insight - Labs CBC & Chem 7: 03/21/17 06:55 03/21/17 06:55 Labs: Abnormal Lab Results - Last 24 Hours (Table) 03/21/17 03/21/17 03/21/17 Range/Units 11:39 17:35 21:16 POC Glucose (mg/dL) 135 H 128 H 219 H (75-99) mg/dL 03/22/17 Range/Units 07:21 POC Glucose (mg/dL) 147 H (75-99) mg/dL Microbiology - Last 24 Hours (Table) 03/18/17 10:54 Blood Culture - Preliminary Blood No Growth after 72 hours Assessment and Plan Plan: 1. Acute respiratory insufficiency secondary to acute exacerbation of COPD. Decrease Solu-Medrol 60 mg IV push to every 6 hours, DuoNeb 3 male nebulization 4 times every day, Pulmicort twice every day, start the patient also on Augmentin, sputum culture if needed, continue oxygen support, pulmonary consultation from Dr. Cross. Repeat chest x-ray ordered to rule out pneumonia. 2. 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 3. Depression, recurrent. Continue Effexor XR 150 mg orally once every day. 4. Acute bronchitis. Continue Levaquin 500 mg IV piggyback daily. 5. Generalized Anxiety disorder. Continue Klonopin 1 mg orally twice every day. 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 7. DVT prophylaxis. Continue heparin 5000 units subcutaneously every 12 hours. 8. GI prophylaxis. Continue PPI. Discharge Plan: Return home tomorrow Impression and plan of care have been directed as dictated by the signing physician. Arleen Gamez nurse practitioner acting as scribe for signing physician.
[2017-03-22 12:30] LABS: Glucose,Whole Blood 122 mg/dL (75-99)
[2017-03-22] MEDS: BENZONATATE 100 MG CAP PO PRN ×2 (13:40→21:00)
[2017-03-22 17:11] LABS: Glucose,Whole Blood 152 mg/dL (75-99)
[2017-03-22 20:49] LABS: Glucose,Whole Blood 215 mg/dL (75-99)
[2017-03-22] MEDS: VENLAFAXINE HCL ER 150 MG CAP PO SCH (20:56)
[2017-03-22] MEDS: clonazePAM 1 MG TAB PO PRN (21:14)
[2017-03-23] MEDS: methylPREDNISolone SOD SUCCI 125 MG/2 ML VIAL IV SCH (05:44)
[2017-03-23 07:47] LABS: Glucose,Whole Blood 174 mg/dL (75-99)
[2017-03-23 08:04] VITALS: BP 136/89; RESP 18; TEMP 97.6
[2017-03-23] MEDS: amLODIPine 5 MG TAB PO SCH (08:37)
[2017-03-23] MEDS: HEPARIN SODIUM,PORCINE 5,000 UNIT/ML 1 ML VIAL SQ SCH (08:37)
[2017-03-23] MEDS: PANTOPRAZOLE 40 MG TABLET PO SCH (08:37)
[2017-03-23] MEDS: CALCIUM CARB-VIT D 500MG-200UN 1 EACH TAB PO SCH (08:37)
[2017-03-23] MEDS: AMOXIC-POT CLAV 875-125MG 1 EACH TAB PO SCH (08:38)
[2017-03-23] MEDS: guaiFENesin 600 MG TABLET.ER PO SCH (08:38)
[2017-03-23] MEDS: FLUTICASONE 50MCG/SPRAY NASAL 16GM EA NOSTRIL SCH (08:38)
[2017-03-23] MEDS: INSULIN LISPRO (humaLOG) 300 UNIT/3 ML VIAL SQ SCH (08:43)
[2017-03-23] MEDS: IPRATROPIUM-ALBUTEROL 3 ML NEB INHALATION SCH ×2 (08:50→10:43)
[2017-03-23] MEDS: SYMBICORT 160-4.5 MCG INHALER INHALATION SCH (10:42)
--- NOTE | 2017-03-23 10:42 | P.DS ---
Providers Date of admission: 03/18/17 13:10 Expected date of discharge: 03/23/17 Attending physician: Flower Babb Consults: 03/18/17 13:09 Consult Physician Routine Consulting Provider: Brit Cross Consult Reason/Comments: COPD exac Do you want consulting provider notified?: Yes [facility]: 56-year-old female one of Dr. Alberts and Dr. Mock for pulmonary with history of right sided breast cancer with metastasis to the right pleura was diagnosed back in 2013. Patient stated that she was in her usual state of health about a week ago when her daughter came down with an upper respiratory tract infection when she developed to have an increased coughing and minimal phlegm production associated with increased shortness breath that did not respond to the analyzer as well as inhalers, so she ended up coming to the ER at [facility] had a chest x-ray that did not show any acute infiltrate however she was found to have an acute exacerbation of chronic obstructive pulmonary disease and she was placed on Solu-Medrol 60 mg IV push every 6 hours , she was placed on nebulized treatment DuoNeb 3 mg nebulization 4 times every day, and she was started on Levaquin, her x-ray showed no evidence of pneumonia however there may be an evidence of acute bronchitis. 03/19: Patient seen by Dr. Cross. Patient is on Solu-Medrol 60 mg IV every 6 hours. Pulse ox is 96% on oxygen at 3 L. She continues to have wheezing. She also complains of chills and yellow green sputum production. She has been afebrile. [facility] 03/20: Patient is now seen on the [facility] floor. She completed tinniest have shortness of breath. Lung sounds are slightly better from yesterday but she continues to have wheezing. Solu-Medrol will be decreased to 60 every 8 hours. Repeat chest x-ray has been ordered. Patient is followed by Dr. Cross 03/21: Patient's breathing status is gradually improving but she does complain of sinus congestion and nasal congestion. Flonase added. Solu-Medrol will be decreased to 40 mg every 8 hours and start prednisone in the morning. Anticipate discharge home tomorrow. 03/22: Dr. Lopez had changed her IV Solu-Medrol back to 60 every 6 hours. He is planning to switch her to prednisone tomorrow and discharge tomorrow. Patient is up and ambulated in the hallway. She continues to have sputum and cough today. Sputum culture will be requested. 03/23: She is breathing status continues to improve. Patient is ambulating in the hallway without oxygen and doing well. Patient has been cleared for discharge by Dr. Silva. She'll be discharged home today in stable condition. Discharge diagnoses: 1. Acute respiratory insufficiency secondary to acute exacerbation of COPD with acute tracheobronchitis. 2. 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 3. Depression, recurrent. 4. Acute bronchitis. 5. Generalized Anxiety disorder. 6. Alysha syndrome. 7. Chronic hypoxic respiratory failure on home O2. Discharge Plan: Return home Impression and plan of care have been directed as dictated by the signing physician. Arleen Gamez nurse practitioner acting as scribe for signing physician. CC: Dr Alberts Patient Condition at Discharge: Good Plan - Discharge Summary New Discharge Prescriptions: New Amoxic-Pot Clav 875-125Mg [Augmentin 875-125] 1 each PO Q12HR #14 tab Benzonatate [Tessalon Perles] 100 mg PO TID PRN #21 cap PRN Reason: Cough Fluticasone Nasal [place] [Flonase Nasal [place]] 2 spray EA NOSTRIL DAILY #0 spray guaiFENesin [Mucinex] 1,200 mg PO Q12HR tab Melatonin 6 mg PO HS #60 tablet predniSONE 0 mg PO DIRECTED #30 tab Nystatin 100,000 Unit/ml Susp [Mycostatin Oral Susp] 5 ml PO QID #200 ml Tiotropium 18 Mcg/Puff [Spiriva] 1 puff INHALATION DAILY #1 inhaler Continue Budesonide-Formot 160-4.5 Mcg [Symbicort 160-4.5 Mcg Inhaler] 2 puff INHALATION RT-BID Anastrozole [Arimidex] 1 mg PO DAILY #30 tab Albuterol Nebulized [Ventolin Nebulized] 2.5 mg INHALATION RT-QID PRN PRN Reason: Shortness Of Breath Albuterol Inhaler [Ventolin Hfa Inhaler] 2 puff INHALATION RT-Q6H PRN PRN Reason: Shortness Of Breath Venlafaxine HCl [Effexor XR] 150 mg PO HS Omeprazole 20 mg PO DAILY clonazePAM [KlonoPIN] 1 mg PO BID PRN PRN Reason: Anxiety Metoclopramide HCl [Reglan] 10 mg PO Q6HR PRN #5 day PRN Reason: Nausea Calcium Carbonate/Vitamin D3 [Calcium 600-Vit D3 400 Caplet] 1 tab PO BID amLODIPine [Norvasc] 5 mg PO BID Discharge Medication List Budesonide-Formot 160-4.5 Mcg [Symbicort 160-4.5 Mcg Inhaler] 2 puff INHALATION RT-BID 03/28/14 [History] Anastrozole [Arimidex] 1 mg PO DAILY #30 tab 04/02/14 [Rx] Albuterol Inhaler [Ventolin Hfa Inhaler] 2 puff INHALATION RT-Q6H PRN 09/05/15 [ History] Albuterol Nebulized [Ventolin Nebulized] 2.5 mg INHALATION RT-QID PRN 09/05/15 [ History] Omeprazole 20 mg PO DAILY 09/05/15 [History] Venlafaxine HCl [Effexor XR] 150 mg PO HS 09/05/15 [History] clonazePAM [KlonoPIN] 1 mg PO BID PRN 10/20/15 [History] Metoclopramide HCl [Reglan] 10 mg PO Q6HR PRN #5 day 03/14/16 [Rx] Calcium Carbonate/Vitamin D3 [Calcium 600-Vit D3 400 Caplet] 1 tab PO BID [History] amLODIPine [Norvasc] 5 mg PO BID 03/18/17 [History] Amoxic-Pot Clav 875-125Mg [Augmentin 875-125] 1 each PO Q12HR #14 tab 03/23/17 [ Rx] Benzonatate [Tessalon Perles] 100 mg PO TID PRN #21 cap 03/23/17 [Rx] Fluticasone Nasal [place] [Flonase Nasal [place]] 2 spray EA NOSTRIL DAILY #0 spray 03/23/17 [Rx] Melatonin 6 mg PO HS #60 tablet 03/23/17 [Rx] Nystatin 100,000 Unit/ml Susp [Mycostatin Oral Susp] 5 ml PO QID #200 ml [Rx] Tiotropium 18 Mcg/Puff [Spiriva] 1 puff INHALATION DAILY #1 inhaler 03/23/17 [Rx ] guaiFENesin [Mucinex] 1,200 mg PO Q12HR tab 03/23/17 [Rx] predniSONE 0 mg PO DIRECTED #30 tab 03/23/17 [Rx] Follow up Appointment(s)/Referral(s): Mejia Mock DO [Doctor of Osteopathic Medicine] - 1 Week Sanjay Alberts DO [Primary Care Provider] - 1 Week Patient Instructions/Handouts: Benzonatate (By mouth), Prednisone (By mouth), Nystatin (By mouth), Amoxicillin/Clavulanate Potassium (By mouth), Tiotropium ( By breathing), Melatonin (By mouth), Acute Bronchitis (GEN), COPD (Chronic Obstructive Pulmonary Disease) (DC) Discharge Disposition: HOME SELF-CARE
[2017-03-23 11:06] VITALS: PULSE 76
--- NOTE | 2017-03-23 13:36 | P.PN ---
Subjective 56-year-old female patient with known history of COPD with a baseline FEV1 of 37 % of predicted, maintained on Symbicort as maintenance inhaler on outpatient basis. Her last hospitalization for an acute COPD exacerbation was more than one half years back. The patient also has been diagnosed having metastatic breast cancer with involvement of the pleura and the patient has been stable and and she had excellent response with Arimidex. She comes in for symptoms typical of an acute COPD exacerbation. She is having increased dyspnea, chest tightness, wheezing and shortness of breath and her chest x-ray is showing no evidence of an acute pneumonia or infiltration. No hemoptysis. No pleurisy. She was started on DuoNeb the last treatment [id number] along with IV Solu Medrol. She was started on empiric antibiotic coverage with Levaquin. Slightly better compared to yesterday. An ex-smoker and she quit smoking more than 2 years ago. She has home O2 and she has been the eighth the using it only at nighttime. She is been exposed to extensive amount of secondhand smoking and she herself has been a heavy smoker and she quit 2 years ago. On 03/20/2017 the patient is slowly improving. She is being treated for an acute COPD exacerbation. She is less short of breath compared to yesterday. She is ambulating in her room. Cough and congestion and wheezing is improved although not fully recovered.. A chest x-ray was also done that showed small right-sided pleural effusion. Rest of the findings are essentially chronic. On 03/21/2017, patient is having worsening symptoms of COPD including symptoms of cough wheezing shortness of breath, more so at the time of my evaluation. Apparently the patient was feeling better earlier, but at the time of my examination, patient was having cough wheezing and shortness of breath. Indeed on physical examination she sounded quite tight and wheezy. CBC shows leukocytosis and basic metabolic profile is relatively normal. Chest x-ray showed small right sided pleural effusion, no clear-cut evidence of infiltrate. The patient is seen again today 03/22/2017 in follow-up on the regular medical floor. She is awake and alert in no acute distress. She's been up ambulating without distress. She is improved today as compared to yesterday but not quite back to her baseline. She is maintaining O2 saturations in the mid 90s on 3 L/ m per nasal cannula. She's been afebrile. Blood cultures revealed no growth. The patient was seen again today 03/23/2017 in follow-up on the regular medical floor. She is up ambulating in the hallway. She denies any worsening shortness of breath, cough or congestion. She is nearly back to her baseline. She is anxious to go home. Objective - Vital Signs Vital signs: Vital Signs Temp 97.6 F 03/23/17 07:00 Pulse 76 03/23/17 11:05 Resp 18 03/23/17 07:00 BP 136/89 03/23/17 07:00 Pulse Ox 93 L 03/23/17 07:00 Intake & Output 03/22/17 03/23/17 03/23/17 18:59 06:59 18:59 Intake Total 400 200 Balance 400 200 Intake: Oral 400 200 Other: Voiding Method Toilet Toilet Toilet # Voids 2 - Exam GENERAL EXAM: Alert, active, comfortable in no apparent distress. HEAD: Normocephalic. EYES: Normal reaction of pupils, equal size. NOSE: Clear with pink turbinates. THROAT: No erythema or exudates. NECK: No masses, no JVD. CHEST: No chest wall deformity. LUNGS: Equal air entry with faint end expiratory wheeze. Diminished. CVS: S1 and S2 normal with no audible murmurs, regular rhythm. ABDOMEN: No hepatosplenomegaly, normal bowel sounds, no guarding or rigidity. SPINE: No scoliosis or deformity SKIN: No rashes CENTRAL NERVOUS SYSTEM: No focal deficits, tone is normal in all 4 extremities. Extremities: There is no peripheral edema. No clubbing, no cyanosis. Peripheral pulses are intact. - Labs CBC & Chem 7: 03/21/17 06:55 03/21/17 06:55 Labs: Abnormal Lab Results - Last 24 Hours (Table) 03/22/17 03/22/17 03/23/17 Range/Units 17:09 20:47 07:41 POC Glucose (mg/dL) 152 H 215 H 174 H (75-99) mg/dL Microbiology - Last 24 Hours (Table) 03/18/17 10:54 Blood Culture - Preliminary Blood No Growth after 120 hours Assessment and Plan Plan: Impression: 1 acute COPD exacerbation/to a bronchitis with secondary shortness of breath. Knowing the patient has advanced COPD with a baseline FEV1 of around 37% of predicted. Her COPD has been relatively well managed with Symbicort. Her last hospitalization for an acute COPD exacerbation was more than one half years back. Her chest x-ray is free of any acute pulmonary infiltration or pneumonia. She is an ex-smoker. 2 metastatic breast cancer post-bilateral mastectomy 3 hypertension Plan: The patient was seen and evaluated by Dr. Silva. She is cleared for discharge from the pulmonary standpoint. She will complete her course of Augmentin. Completed course of prednisone taper. Continue on short acting bronchodilators and her Symbicort. She'll follow up with Dr. Mock in our office in 1-2 weeks' time. She is encouraged to call sooner with any recurrence of symptoms or other questions or concerns.
== END 2017-03-23 11:55 | disposition home or self-care (01) | DRG 191 ==
LOC: EC 10:23 → 6SEL 13:10 → 5MS5E 03-19 09:38
PROVIDERS: ADMIT Internal Medicine; ATTEND Internal Medicine
DX: J44.0 Chronic obstructive pulmonary disease with (acute) lower respiratory infection (principal); J90 Pleural effusion, not elsewhere classified; J96.11 Chronic respiratory failure with hypoxia; F33.9 Major depressive disorder, recurrent, unspecified; G90.2 Horner's syndrome; I10 Essential (primary) hypertension; F41.1 Generalized anxiety disorder; J20.9 Acute bronchitis, unspecified; J44.1 Chronic obstructive pulmonary disease with (acute) exacerbation; K21.9 Gastro-esophageal reflux disease without esophagitis; R09.81 Nasal congestion; Z79.811 Long term (current) use of aromatase inhibitors; Z79.899 Other long term (current) drug therapy; Z88.8 Allergy status to other drugs, medicaments and biological substances; Z85.3 Personal history of malignant neoplasm of breast; Z87.891 Personal history of nicotine dependence; Z85.29 Personal history of malignant neoplasm of other respiratory and intrathoracic organs
CPT/HCPCS: 36415; 71020; 80048; 80053; 82550; 82553; 83036; 83605; 83735; 84484; 85025; 85027; 85610; 85730; 87040; 93005; 94640; 94644; 94760

== ENCOUNTER 2017-04-04 17:45 | Emergency (ER) | payer MEDICARE ==
[2017-04-04 19:05] LABS: Basophils % (A) 0 %; CH 30.3; CHCM 33.2; Eosinophils % (A) 0 %; HCT 44.8 % (34.0-46.0); HDW 2.27; HGB 15.2 gm/dL (11.4-16.0); Luc # (Auto) 0.03; Luc % (Auto) 0; Lymphocytes # (A) 0.6 k/uL (1.0-4.8); Lymphocytes % (A) 4 %; MCH 31.1 pg (25.0-35.0); MCHC 33.9 g/dL (31.0-37.0); MCV 91.7 fL (80.0-100.0); Mean Platelet Volume 6.2; Monocytes # (A) 0.4 k/uL (0-1.0); Monocytes % (A) 3 %; Neutrophils # (A) 12.9 k/uL (1.3-7.7); Neutrophils % (A) 93 %; RBC 4.88 m/uL (3.80-5.40); RDW 14.1 % (11.5-15.5); WBC 13.9 k/uL (3.8-10.6); WBC (Perox) 12.61
[2017-04-04 19:13] LABS: Partial Thromboplastin Time 23.1 sec (22.0-30.0); Prothrombin Time 10.1 sec (9.0-12.0)
[2017-04-04] MEDS ORDERED: ALBUTEROL NEBULIZED 2.5 MG/3 ML INHALATION STA (19:13)
[2017-04-04] MEDS ORDERED: IPRATROPIUM 0.5 MG/2.5 ML NEBU INHALATION STA (19:13)
[2017-04-04] MEDS ORDERED: DEXAMETHASONE SOD PHOSPHATE 10 MG/ML 1 ML VIAL IV STA (19:14)
[2017-04-04 19:15] LABS: ALT 41 U/L (9-52); AST 26 U/L (14-36); Alkaline Phosphatase 87 U/L (38-126); Anion Gap 10 mmol/L; Blood Urea Nitrogen 7 mg/dL (7-17); Calcium 9.2 mg/dL (8.4-10.2); Carbon Dioxide 30 mmol/L (22-30); Chloride 95 mmol/L (98-107); Glucose 135 mg/dL (74-99); Magnesium 1.8 mg/dL (1.6-2.3); Non-African American GFR(MDRD) >60 (>60 ml/min/1.73 sqM); Potassium 3.9 mmol/L (3.5-5.1); Sodium 135 mmol/L (137-145); Total Bilirubin 0.5 mg/dL (0.2-1.3); Total Protein 7.1 g/dL (6.3-8.2)
[2017-04-04 19:26] LABS: Creatine Kinase 65 U/L (30-135)
[2017-04-04 19:39] LABS: Creatine Kinase MB 1.4 ng/mL (0.0-2.4); Troponin I <0.012 ng/mL (0.000-0.034)
--- NOTE | 2017-04-04 20:14 | XR ---
EXAMINATION TYPE: XR chest 2V DATE OF EXAM: 04/04/2017 COMPARISON: 03/20/2017 HISTORY: Chest pain TECHNIQUE: Frontal and lateral views of the chest are obtained. FINDINGS: There is anterior right upper lobe linear infiltrate and atelectasis. The left lung is clementine ar. There is no heart failure. There is slight blunting of right costophrenic angle. There are chest leads. Heart size is normal. IMPRESSION: There is pleural and pulmonary scarring and atelectasis on the right side that is the sa me or worse than last exam. Normal heart.
[2017-04-04] MEDS ORDERED: METOCLOPRAMIDE 5 MG/ML 2 ML VIAL IVP STA (22:36)
[2017-04-04] MEDS ORDERED: SODIUM CHLORIDE 0.9% 500 ML IV ONE (22:37)
--- NOTE | 2017-04-04 22:46 | ED ---
General Adult HPI - General Chief complaint: Chest Pain Stated complaint: LOW O2 Hx COPD, CHEST PAIN Time Seen by Provider: 04/04/17 18:31 Source: patient, family, RN notes reviewed Mode of arrival: wheelchair Limitations: no limitations - History of Present Illness Initial comments: 56-year-old female with history of COPD on home O2 presents with worsening cough and difficult breathing. Patient was recently discharged from the hospital after COPD exacerbation. She completed a course of steroids yesterday. She describes yellow-green sputum production. She is also had nausea vomiting and diarrhea over the past 24 hours. She also reports subjective fever and chills. She denies any blood in her vomit or diarrhea had approximately 10 episodes of vomiting and 5 episodes of diarrhea. Recently quit tobacco use. - Related Data Home Medications Medication Instructions Recorded Confirmed Budesonide-Formot 160-4.5 Mcg 2 puff INHALATION RT-BID 03/28/14 04/04/17 [Symbicort 160-4.5 Mcg Inhaler] Albuterol Inhaler [Ventolin Hfa 2 puff INHALATION RT-Q6H PRN 09/05/15 04/04/17 Inhaler] Albuterol Nebulized [Ventolin 2.5 mg INHALATION RT-QID PRN 09/05/15 04/04/17 Nebulized] Omeprazole 20 mg PO DAILY 09/05/15 04/04/17 Venlafaxine HCl [Effexor XR] 150 mg PO HS 09/05/15 04/04/17 clonazePAM [KlonoPIN] 1 mg PO BID PRN 10/20/15 04/04/17 Calcium Carbonate/Vitamin D3 1 tab PO BID 08/25/16 04/04/17 [Calcium 600-Vit D3 400 [place]] amLODIPine [Norvasc] 5 mg PO BID 03/18/17 04/04/17 Tiotropium 18 Mcg/Puff [Spiriva] 1 puff INHALATION RT-DAILY 04/04/17 04/04/17 Previous Rx's Medication Instructions Recorded Anastrozole [Arimidex] 1 mg PO DAILY #30 tab 04/02/14 Metoclopramide HCl [Reglan] 10 mg PO Q6HR PRN #5 day 03/14/16 Fluticasone Nasal [place] [Flonase 2 spray EA NOSTRIL DAILY #0 spray 03/23/17 Nasal [place]] Doxycycline [Vibramycin] 100 mg PO Q12HR #14 capsule 04/04/17 Metoclopramide HCl [Reglan] 10 mg PO Q8HR PRN #10 tablet 04/04/17 predniSONE 20 mg PO BID #10 tab 04/04/17 Allergies Allergy/AdvReac Type Severity Reaction Status Date / Time levofloxacin Allergy Rash/Hives Verified 04/04/17 18:43 ondansetron HCl AdvReac Severe Increased Verified 04/04/17 18:43 [From Zofran (as QT interval hydrochloride)] prochlorperazine edisylate AdvReac Severe Increased Verified 04/04/17 18:43 [From Compazine] QT interval prochlorperazine maleate AdvReac Severe Increased Verified 04/04/17 18:43 [From Compazine] QT Interval Review of Systems ROS Statement: Those systems with pertinent positive or pertinent negative responses have been documented in the HPI. ROS Other: All systems not noted in ROS Statement are negative. Past Medical History Past Medical History: Cancer, COPD, GERD/Reflux, GI Bleed, Hypertension, Pneumonia Additional Past Medical History / Comment(s): COPD, baseline FEV1 of 37% of predicted consistent with severe COPD, metastatic breast cancer, hypertension, cyclic vomiting syndrome, lymphedema of the right upper extremity related to previous breast surgery, chronic sinus disease, history of QT prolongation secondary to antibiotic use. She also has history of GI bleed, GERD History of Any Multi-Drug Resistant Organisms: None Reported Past Surgical History: Breast Surgery, Orthopedic Surgery Additional Past Surgical History / Comment(s): Cone biopsy at age 22 years of age, multiple colonoscopies and EGDs. Thoracoscopy with minimal thoracotomy and pleural biopsy, D&C.. bilateral mastectomy and lymph nodeectomy, LT THUMB TRIGGER FINGER SX, LT KNEE ARTHROSOCPY, LT ACL REPAIR Past Anesthesia/Blood Transfusion Reactions: Postoperative Nausea & Vomiting ( PONV) Past Psychological History: Anxiety, Depression Smoking Status: Former smoker Past Alcohol Use History: Rare Past Drug Use History: None Reported - Past Family History Father Family Medical History: Cancer Additional Family Medical History / Comment(s): Patient reports her father of lung cancer at age 59. Brother(s) Additional Family Medical History / Comment(s): Patient has to penicillin major medical problems. Patient has 2 sisters with no major medical problems. Patient has one daughter with no major medical problems. Mother Additional Family Medical History / Comment(s): MOM IS HEALTHY AT AGE 80 General Exam Limitations: no limitations General appearance: alert, in no apparent distress Head exam: Present: atraumatic, normocephalic Eye exam: Present: normal appearance, PERRL ENT exam: Present: normal exam, mucous membranes moist Neck exam: Present: normal inspection, full ROM Respiratory exam: Present: wheezes, prolonged expiratory. Absent: respiratory distress Cardiovascular Exam: Present: regular rate, normal rhythm GI/Abdominal exam: Present: soft, distended. Absent: tenderness, guarding Extremities exam: Present: normal capillary refill. Absent: pedal edema Neurological exam: Present: alert, oriented X3 Psychiatric exam: Present: depressed, anxious Skin exam: Present: warm, dry Course Vital Signs 04/04/17 04/04/17 04/04/17 17:48 18:50 19:50 Temperature 97.2 F L Pulse Rate 74 90 64 Respiratory 17 20 Rate Blood Pressure 153/86 139/106 O2 Sat by Pulse 91 L 98 Oximetry 04/04/17 20:14 Temperature Pulse Rate 72 Respiratory Rate Blood Pressure O2 Sat by Pulse Oximetry - Reevaluation(s) Reevaluation #1: 04/04/17 22:40 Reevaluation after breathing treatment. The patient states her breathing is improved. She's had no episodes of nausea vomiting or diarrhea while in the emergency department. EKG Findings - EKG Comments: EKG Findings:: EKG shows normal sinus rhythm with a ventricular rate of 66, NV interval 134, QRS duration 92, QTC 461. There is no ST segment elevation or depression. Medical Decision Making - Medical Decision Making 56-year-old female presenting with worsening cough and dyspnea. Patient has history of COPD on home O2. She also reports 2 day history of nausea vomiting and subjective fever and chills. Patient receives steroids, albuterol and Atrovent in the emergency department as well as Reglan and IV fluids. She's had no episodes of nausea and vomiting. Abdomen is soft nontender. She is hemodynamically stable. Oxygen saturation is in the high 90s on her normal home O2 which is 2 L. Case is discussed with the patient's primary care physician. She will be discharged home with outpatient follow-up. Diagnosis COPD exacerbation. - Lab Data Result diagrams: 04/04/17 18:25 04/04/17 18:25 Lab Results 04/04/17 04/04/17 04/04/17 Range/Units 18:25 18:25 18:25 WBC 13.9 H (3.8-10.6) k/uL RBC 4.88 (3.80-5.40) m/uL Hgb 15.2 (11.4-16.0) gm/dL Hct 44.8 (34.0-46.0) % MCV 91.7 (80.0-100.0) fL MCH 31.1 (25.0-35.0) pg MCHC 33.9 (31.0-37.0) g/dL RDW 14.1 (11.5-15.5) % Plt Count 381 (150-450) k/uL Neutrophils % 93 % Lymphocytes % 4 % Monocytes % 3 % Eosinophils % 0 % Basophils % 0 % Neutrophils # 12.9 H (1.3-7.7) k/uL Lymphocytes # 0.6 L (1.0-4.8) k/uL Monocytes # 0.4 (0-1.0) k/uL Eosinophils # 0.0 (0-0.7) k/uL Basophils # 0.0 (0-0.2) k/uL PT 10.1 (9.0-12.0) sec INR 1.0 (<1.2) APTT 23.1 (22.0-30.0) sec Sodium 135 L (137-145) mmol/L Potassium 3.9 (3.5-5.1) mmol/L Chloride 95 L (98-107) mmol/L Carbon Dioxide 30 (22-30) mmol/L Anion Gap 10 mmol/L BUN 7 (7-17) mg/dL Creatinine 0.47 L (0.52-1.04) mg/dL Est GFR (MDRD) Af Amer >60 (>60 ml/min/1.73 sqM) Est GFR (MDRD) Non-Af >60 (>60 ml/min/1.73 sqM) Glucose 135 H (74-99) mg/dL Calcium 9.2 (8.4-10.2) mg/dL Magnesium 1.8 (1.6-2.3) mg/dL Total Bilirubin 0.5 (0.2-1.3) mg/dL AST 26 (14-36) U/L ALT 41 (9-52) U/L Alkaline Phosphatase 87 (38-126) U/L Total Creatine Kinase (30-135) U/L CK-MB (CK-2) (0.0-2.4) ng/mL CK-MB (CK-2) Rel Index Troponin I (0.000-0.034) ng/mL Total Protein 7.1 (6.3-8.2) g/dL Albumin 4.5 (3.5-5.0) g/dL 04/04/17 Range/Units 18:25 WBC (3.8-10.6) k/uL RBC (3.80-5.40) m/uL Hgb (11.4-16.0) gm/dL Hct (34.0-46.0) % MCV (80.0-100.0) fL MCH (25.0-35.0) pg MCHC (31.0-37.0) g/dL RDW (11.5-15.5) % Plt Count (150-450) k/uL Neutrophils % % Lymphocytes % % Monocytes % % Eosinophils % % Basophils % % Neutrophils # (1.3-7.7) k/uL Lymphocytes # (1.0-4.8) k/uL Monocytes # (0-1.0) k/uL Eosinophils # (0-0.7) k/uL Basophils # (0-0.2) k/uL PT (9.0-12.0) sec INR (<1.2) APTT (22.0-30.0) sec Sodium (137-145) mmol/L Potassium (3.5-5.1) mmol/L Chloride (98-107) mmol/L Carbon Dioxide (22-30) mmol/L Anion Gap mmol/L BUN (7-17) mg/dL Creatinine (0.52-1.04) mg/dL Est GFR (MDRD) Af Amer (>60 ml/min/1.73 sqM) Est GFR (MDRD) Non-Af (>60 ml/min/1.73 sqM) Glucose (74-99) mg/dL Calcium (8.4-10.2) mg/dL Magnesium (1.6-2.3) mg/dL Total Bilirubin (0.2-1.3) mg/dL AST (14-36) U/L ALT (9-52) U/L Alkaline Phosphatase (38-126) U/L Total Creatine Kinase 65 (30-135) U/L CK-MB (CK-2) 1.4 (0.0-2.4) ng/mL CK-MB (CK-2) Rel Index 2.2 Troponin I <0.012 (0.000-0.034) ng/mL Total Protein (6.3-8.2) g/dL Albumin (3.5-5.0) g/dL Disposition Clinical Impression: Acute exacerbation of chronic obstructive airways disease Disposition: HOME SELF-CARE Condition: Good Instructions: COPD (Chronic Obstructive Pulmonary Disease) (ED) Prescriptions: Doxycycline [Vibramycin] 100 mg PO Q12HR #14 capsule Metoclopramide HCl [Reglan] 10 mg PO Q8HR PRN #10 tablet PRN Reason: Nausea predniSONE 20 mg PO BID #10 tab Referrals: Sanjay Alberts DO [Primary Care Provider] - 1-2 days Time of Disposition: 22:42
[2017-04-04 23:28] VITALS: BP 169/85; PULSE 93; RESP 16; TEMP 98
== END 2017-04-04 23:27 | disposition home or self-care (01) ==
LOC: EC 17:45
DX: J44.1 Chronic obstructive pulmonary disease with (acute) exacerbation (principal); K21.9 Gastro-esophageal reflux disease without esophagitis; I10 Essential (primary) hypertension; F32.9 Major depressive disorder, single episode, unspecified; F41.9 Anxiety disorder, unspecified; Z87.891 Personal history of nicotine dependence; Z88.1 Allergy status to other antibiotic agents; Z85.3 Personal history of malignant neoplasm of breast; Z88.8 Allergy status to other drugs, medicaments and biological substances; Z79.51 Long term (current) use of inhaled steroids; Z79.899 Other long term (current) drug therapy
CPT/HCPCS: 36415; 94640; 93005; 80053; 82550; 82553; 83735; 84484; 85025; 85610; 85730; 71020; 99285; 96374; 96375; J1100; J2765

== ENCOUNTER → 2017-05-16 | Outpatient (CLI) | payer MEDICARE ==
--- NOTE | 2017-05-16 13:56 | CT ---
EXAMINATION TYPE: CT ChestAbdPelvis w con DATE OF EXAM: 05/16/2017 INDICATION: Follow up breast cancer. No complaints at time of scan COMPARISON: 06/02/2016 CT DLP: 428.6 mGycm CONTRAST: Performed with Oral Contrast and with IV Contrast, patient injected with 100 mL of Omnipaque 300. TECHNIQUE: Axial images at 5 mm thick sections. Reconstructed images in the coronal plane. Delayed images through the kidneys. FINDINGS: CT CHEST: Portion of the thyroid visualized is normal. There is some scattered infiltrates within the right lung likely on the basis of atelectasis. Some th ickening along the lateral pleural margin of the right lateral lung base is stable. No enlarged mediastinal or hilar adenopathy is evident. Bilateral breast prostheses are present. The ascending aorta diameter at the level of the main pulmonary artery is 3.1 cm. The main pulmonary artery diameter at the bifurcation is 2.[address] ABDOMEN: Liver: Normal Spleen: Normal Pancreas: Normal Adrenal glands: The adrenal glands are normal. Gallbladder: Normal Kidneys: No masses are evident. No hydronephrosis is present. No cysts are present. Delayed images were obtained through the kidneys, which remain unremarkable. Aorta: Vascular calcification is within the aorta. Inferior vena cava: Normal. CT PELVIS: Loops of bowel within the abdomen and pelvis are normal. There are loops of bowel which are incom pletely distended or lack oral contrast limiting their evaluation. Some mild diverticulosis along the sigmoid colon is likely present. Appendix: Normal as visualized. Urinary bladder: Normal. Genitourinary structures: Uterus and adnexal regions are clear. Osseous structures: No suspicious lytic or sclerotic lesions. Right acetabular subchondral cysts appe ar to be present. Facet changes and spondylolysis at L5 are present. IMPRESSIONS: 1. No suspicious changes to suggest acute metastatic disease. 2. Examination appears stable from the comparison 2015.
--- NOTE | 2017-05-17 07:36 | NM ---
EXAMINATION TYPE: NM bone scan whole body DATE OF EXAM: 05/16/2017 COMPARISON: NONE HISTORY: Breast cancer Delayed whole-body scanning was performed following the injection of 25 mCi Tc 99m MDP. Images acqui red 3 hours post injection. FINDINGS: There is increased activity in the first MTP joint of the right foot. There is mild increas ed activity in the sternoclavicular joints bilaterally. There is some increased activity at the base of both thumbs. There is increased activity in the carpal bones of the right wrist. There is no convi ncing scintigraphic evidence of metastases. IMPRESSION: I DO NOT SEE CONVINCING SCINTIGRAPHIC EVIDENCE OF METASTASES AT THIS TIME.
== END | disposition home or self-care (01) ==
LOC: RADNMMAIN 11:35
PROVIDERS: ATTEND Internal Medicine Hematology & Oncology
DX: C50.919 Malignant neoplasm of unspecified site of unspecified female breast (principal); M54.5 Low back pain
CPT/HCPCS: 71260; 74177; 78306; A9503; Q9967

== ENCOUNTER 2017-05-30 10:12 | Emergency (ER) | payer MEDICARE ==
[2017-05-30] MEDS ORDERED: SODIUM CHLORIDE 0.9% 1,000 ML IV STA (10:58)
[2017-05-30] MEDS ORDERED: METOCLOPRAMIDE 5 MG/ML 2 ML VIAL IVP STA (10:58)
[2017-05-30 11:43] LABS: ALT 49 U/L (9-52); AST 36 U/L (14-36); Alkaline Phosphatase 90 U/L (38-126); Anion Gap 12 mmol/L; Blood Urea Nitrogen 16 mg/dL (7-17); Calcium 10.2 mg/dL (8.4-10.2); Carbon Dioxide 30 mmol/L (22-30); Chloride 94 mmol/L (98-107); Glucose 166 mg/dL (74-99); Non-African American GFR(MDRD) >60 (>60 ml/min/1.73 sqM); Potassium 3.9 mmol/L (3.5-5.1); Sodium 136 mmol/L (137-145); Total Bilirubin 0.9 mg/dL (0.2-1.3); Total Protein 8.2 g/dL (6.3-8.2)
[2017-05-30 11:46] LABS: Basophils % (A) 0 %; CH 30.7; CHCM 33.6; Eosinophils # (A) 0.1 k/uL (0-0.7); Eosinophils % (A) 1 %; HCT 49.7 % (34.0-46.0); HDW 2.41; HGB 16.6 gm/dL (11.4-16.0); Luc # (Auto) 0.09; Luc % (Auto) 1; Lymphocytes % (A) 7 %; MCH 30.6 pg (25.0-35.0); MCHC 33.4 g/dL (31.0-37.0); MCV 91.5 fL (80.0-100.0); Mean Platelet Volume 6.6; Monocytes # (A) 0.8 k/uL (0-1.0); Monocytes % (A) 6 %; Neutrophils # (A) 11.3 k/uL (1.3-7.7); Neutrophils % (A) 85 %; RBC 5.43 m/uL (3.80-5.40); WBC 13.2 k/uL (3.8-10.6); WBC (Perox) 13.23
--- NOTE | 2017-05-30 11:55 | ED ---
General Adult HPI - General Chief complaint: Nausea/Vomiting/Diarrhea Stated complaint: NAUSEA,VOMITING,SOB Time Seen by Provider: 05/30/17 10:52 Source: patient, RN notes reviewed Mode of arrival: wheelchair Limitations: no limitations - History of Present Illness Initial comments: 56-year-old female presents to the emergency department with the chief complaint of nausea vomiting. She denies nausea vomiting for the last 2 days. she is unable to Keep anything down. She states that she has been sick with a COPD exacerbation for the last few months on and off in and out of the hospital on multiple sclerosis of antibiotics. She currently is on azithromycin and prednisone. He stated were concerned due to the continued vomiting in the Maybe has been some blood in the vomit today They should be seen. There is been no other symptoms and the patient. She states she just feels weak and tired with this.Patient denies any recent fever, chills, shortness of breath, chest pain, back pain, abdominal pain, numbness or tingling, dysuria or hematuria, constipation or diarrhea, headaches or visual changes, or any other current symptoms. - Related Data Home Medications Medication Instructions Recorded Confirmed Budesonide-Formot 160-4.5 Mcg 2 puff INHALATION RT-BID 03/28/14 05/30/17 [Symbicort 160-4.5 Mcg Inhaler] Albuterol Inhaler [Ventolin Hfa 2 puff INHALATION RT-Q6H PRN 09/05/15 05/30/17 Inhaler] Omeprazole 20 mg PO BID 09/05/15 05/30/17 Venlafaxine HCl [Effexor XR] 150 mg PO HS 09/05/15 05/30/17 Azithromycin [Zithromax Z-pack] See Taper PO DAILY 05/30/17 05/30/17 Ibuprofen [Motrin] 800 mg PO TID PRN 05/30/17 05/30/17 Nystatin 400,000 unit PO 5XD 05/30/17 05/30/17 predniSONE See Taper PO DAILY 05/30/17 05/30/17 Previous Rx's Medication Instructions Recorded Anastrozole [Arimidex] 1 mg PO DAILY #30 tab 04/02/14 Famotidine [Pepcid] 20 mg PO BID #10 tablet 05/30/17 Allergies Allergy/AdvReac Type Severity Reaction Status Date / Time levofloxacin Allergy Rash/Hives Verified 05/30/17 11:24 ondansetron HCl AdvReac Severe Increased Verified 05/30/17 11:24 [From Zofran (as QT interval hydrochloride)] prochlorperazine edisylate AdvReac Severe Increased Verified 05/30/17 11:24 [From Compazine] QT interval prochlorperazine maleate AdvReac Severe Increased Verified 05/30/17 11:24 [From Compazine] QT Interval Review of Systems ROS Statement: Those systems with pertinent positive or pertinent negative responses have been documented in the HPI. ROS Other: All systems not noted in ROS Statement are negative. Past Medical History Past Medical History: Cancer, COPD, GERD/Reflux, GI Bleed, Hypertension, Pneumonia Additional Past Medical History / Comment(s): COPD, baseline FEV1 of 37% of predicted consistent with severe COPD, metastatic breast cancer, hypertension, cyclic vomiting syndrome, lymphedema of the right upper extremity related to previous breast surgery, chronic sinus disease, history of QT prolongation secondary to antibiotic use. She also has history of GI bleed, GERD History of Any Multi-Drug Resistant Organisms: None Reported Past Surgical History: Breast Surgery, Orthopedic Surgery Additional Past Surgical History / Comment(s): Cone biopsy at age 22 years of age, multiple colonoscopies and EGDs. Thoracoscopy with minimal thoracotomy and pleural biopsy, D&C.. bilateral mastectomy and lymph nodeectomy, LT THUMB TRIGGER FINGER SX, LT KNEE ARTHROSOCPY, LT ACL REPAIR Past Anesthesia/Blood Transfusion Reactions: Postoperative Nausea & Vomiting ( PONV) Past Psychological History: Anxiety, Depression Smoking Status: Former smoker Past Alcohol Use History: Rare Past Drug Use History: None Reported - Past Family History Father Family Medical History: Cancer Additional Family Medical History / Comment(s): Patient reports her father of lung cancer at age 59. Brother(s) Additional Family Medical History / Comment(s): Patient has to penicillin major medical problems. Patient has 2 sisters with no major medical problems. Patient has one daughter with no major medical problems. Mother Additional Family Medical History / Comment(s): MOM IS HEALTHY AT AGE 80 General Exam - General Exam Comments Initial Comments: General: The patient is awake and alert, in no distress, and does not appear acutely ill. Eye: Pupils are equal, round and reactive to light, extra-ocular movements are intact; there is normal conjunctiva bilaterally. No signs of icterus. Ears, nose, mouth and throat: There are moist mucous membranes and no oral lesions. Neck: The neck is supple, there is no tenderness. Cardiovascular: There is a regular rate and rhythm. No murmur, rub or gallop is appreciated. Respiratory: Lungs are clear to auscultation, respirations are non-labored, breath sounds are equal. No wheezes, stridor, rales, or rhonchi. Gastrointestinal: Soft, non-distended, non-tender abdomen without masses or organomegaly noted. There is no rebound or guarding present. No CVA tenderness. Bowel sounds are unremarkable. Back: There is no tenderness to palpation in the midline. There is no obvious deformity. No rashes noted. Musculoskeletal: Normal ROM, no tenderness, There is no pedal edema. There is no calf tenderness or swelling. Sensation intact. Pulses equal bilaterally 2+. Neurological: CN II-XII intact, There are no obvious motor or sensory deficits. Coordination appears grossly intact. Speech is normal. Skin: Skin is warm and dry and no rashes or lesions are noted. Psychiatric: Cooperative, appropriate mood & affect, normal judgment. Limitations: no limitations Course Vital Signs 05/30/17 05/30/17 05/30/17 10:25 11:27 12:39 Temperature 98.2 F 97.8 F Pulse Rate 68 84 88 Respiratory 20 20 18 Rate Blood Pressure 169/108 156/105 172/102 O2 Sat by Pulse 95 98 97 Oximetry 05/30/17 13:29 Temperature Pulse Rate 84 Respiratory 18 Rate Blood Pressure 140/90 O2 Sat by Pulse 100 Oximetry Medical Decision Making - Medical Decision Making 56-year-old female presents emergency room chief complaint of nausea.this and patient's lab work is reviewed. At this time we believe the patient's symptoms most likely due to a gastritis due to the increased mastoid she's been using. We will start her on a short course of Pepcid to help her with her discomfort. We discussed close follow up with her doctor return parameters. Patient stated she understood and all of her questions have been answered. At this time patient will be discharged. - Lab Data Result diagrams: 05/30/17 11:00 05/30/17 11:00 Lab Results 05/30/17 05/30/17 05/30/17 Range/Units 11:00 11:00 13:02 WBC 13.2 H (3.8-10.6) k/uL RBC 5.43 H (3.80-5.40) m/uL Hgb 16.6 H (11.4-16.0) gm/dL Hct 49.7 H (34.0-46.0) % MCV 91.5 (80.0-100.0) fL MCH 30.6 (25.0-35.0) pg MCHC 33.4 (31.0-37.0) g/dL RDW 14.0 (11.5-15.5) % Plt Count 443 (150-450) k/uL Neutrophils % 85 % Lymphocytes % 7 % Monocytes % 6 % Eosinophils % 1 % Basophils % 0 % Neutrophils # 11.3 H (1.3-7.7) k/uL Lymphocytes # 1.0 (1.0-4.8) k/uL Monocytes # 0.8 (0-1.0) k/uL Eosinophils # 0.1 (0-0.7) k/uL Basophils # 0.0 (0-0.2) k/uL Sodium 136 L (137-145) mmol/L Potassium 3.9 (3.5-5.1) mmol/L Chloride 94 L (98-107) mmol/L Carbon Dioxide 30 (22-30) mmol/L Anion Gap 12 mmol/L BUN 16 (7-17) mg/dL Creatinine 0.50 L (0.52-1.04) mg/dL Est GFR (MDRD) Af Amer >60 (>60 ml/min/1.73 sqM) Est GFR (MDRD) Non-Af >60 (>60 ml/min/1.73 sqM) Glucose 166 H (74-99) mg/dL Calcium 10.2 (8.4-10.2) mg/dL Total Bilirubin 0.9 (0.2-1.3) mg/dL AST 36 (14-36) U/L ALT 49 (9-52) U/L Alkaline Phosphatase 90 (38-126) U/L Total Protein 8.2 (6.3-8.2) g/dL Albumin 5.2 H (3.5-5.0) g/dL Urine Color Light Yellow Urine Appearance Cloudy H (Clear) Urine pH 7.5 (5.0-8.0) Ur Specific [place] 1.009 (1.001-1.035) Urine Protein Trace H (Negative) Urine Glucose (UA) Trace H (Negative) Urine Ketones Negative (Negative) Urine Blood Negative (Negative) Urine Nitrite Negative (Negative) Urine Bilirubin Negative (Negative) Urine Urobilinogen <2.0 (<2.0) mg/dL Ur Leukocyte Esterase Negative (Negative) Urine WBC 2 (0-5) /hpf Ur Squamous Epith Cells <1 (0-4) /hpf Amorphous Sediment Occasional H (None) /hpf Urine Mucus Occasional H (None) /hpf - Radiology Data Radiology results: report reviewed, image reviewed Disposition Clinical Impression: Acute gastritis Disposition: HOME SELF-CARE Condition: Stable Instructions: Gastritis (ED) Additional Instructions: Please use medication as discussed. Please follow up with family doctor if symptoms have not improved over the next two days. Please return to the emergency room if your symptoms increase or worsen or for any other concerns. Prescriptions: Famotidine [Pepcid] 20 mg PO BID #10 tablet Referrals: Sanjay Alberts DO [Primary Care Provider] - 1-2 days Time of Disposition: 13:37
--- NOTE | 2017-05-30 12:21 | XR ---
EXAMINATION TYPE: XR chest 2V DATE OF EXAM: 05/30/2017 COMPARISON: 04/04/2017 TECHNIQUE: PA and lateral views submitted. HISTORY: Cough FINDINGS: Postsurgical changes are seen. Asymmetric linear changes in the right upper lobe are stable suggestiv e of scar or atelectasis. Blunting of the right costophrenic angle is stable. Arthropathy of the shou lders. No pneumothorax. Curvature the spine with hypertrophic changes. Hyperinflation suggests COPD. IMPRESSION: 1. Correlate for COPD. Chronic pleural-parenchymal changes on the right are stable from previous exam . Right-sided infiltrate and small effusion unchanged.
[2017-05-30] MEDS ORDERED: FAMOTIDINE 20 MG/2 ML VIAL IV STA (12:23)
[2017-05-30] MEDS ORDERED: ENALAPRILAT 1.25 MG/ML 1 ML VIAL IVP STA (13:09)
[2017-05-30 13:30] LABS: Amorphous Sediment,Urine Occasional /hpf; Appearance,Urine Cloudy (Clear); Bilirubin,Urine Negative (Negative); Glucose,Urine (UA) Trace (Negative); Ketones,Urine Negative (Negative); Leukocyte Esterase,Urine Negative (Negative); Mucus,Urine Occasional /hpf; Nitrite,Urine Negative (Negative); PH, Urine 7.5 (5.0-8.0); Particle Count 9163; Protein,Urine Trace (Negative); Specific Gravity,Urine 1.009 (1.001-1.035); Squamous Epithelial Cell,Urine <1 /hpf (0-4); UA Billing (MACRO vs. MICRO) MICRO; Urobilinogen,Urine <2.0 mg/dL (<2.0); WBC,Urine 2 /hpf (0-5)
[2017-05-30 13:47] VITALS: BP 135/85; PULSE 85; RESP 16; TEMP 99
== END 2017-05-30 13:49 | disposition home or self-care (01) ==
LOC: EC 10:12
DX: K29.00 Acute gastritis without bleeding (principal); J44.9 Chronic obstructive pulmonary disease, unspecified; K21.9 Gastro-esophageal reflux disease without esophagitis; F32.9 Major depressive disorder, single episode, unspecified; F41.9 Anxiety disorder, unspecified; Z85.3 Personal history of malignant neoplasm of breast; Z87.01 Personal history of pneumonia (recurrent); Z98.890 Other specified postprocedural states; Z87.891 Personal history of nicotine dependence; Z53.09 Procedure and treatment not carried out because of other contraindication; Z88.1 Allergy status to other antibiotic agents; Z88.8 Allergy status to other drugs, medicaments and biological substances; Z79.51 Long term (current) use of inhaled steroids; Z79.52 Long term (current) use of systemic steroids; Z79.899 Other long term (current) drug therapy
CPT/HCPCS: 36415; 80053; 85025; 81001; 71020; 99284; 96374; 96375; 96361; J2765

== ENCOUNTER 2017-06-01 13:49 | Emergency (ER) | payer MEDICARE ==
[2017-06-01 14:01] VITALS: RESP 18
[2017-06-01] MEDS ORDERED: SODIUM CHLORIDE 0.9% 1,000 ML IV STA (14:16)
[2017-06-01] MEDS ORDERED: FAMOTIDINE 20 MG/2 ML VIAL IV STA (14:16)
[2017-06-01] MEDS ORDERED: METOCLOPRAMIDE 5 MG/ML 2 ML VIAL IVP STA (14:16)
--- NOTE | 2017-06-01 14:28 | ED ---
General Adult HPI - General Chief complaint: Abdominal Pain Stated complaint: Nauseated, vomiting Time Seen by Provider: 06/01/17 14:08 Source: patient, RN notes reviewed Mode of arrival: wheelchair Limitations: no limitations - History of Present Illness Initial comments: Patient 56-year-old female who presents emergency room today with a chief complaint of increased nausea vomiting abdominal pain over the last day. She doesn't some cramping upper abdomen. Does admit that the symptoms started approximately 4 days ago was seen here in the emergency room 2 days ago for same complaint. She states she was doing well at home with Pepcid. States symptoms started again late last night. She doesn't that to nausea vomiting. Denies any signs of blood. Denies any other complaints or symptoms at this time. Patient denies any recent fever, chills, shortness of breath, chest pain, back pain, numbness or tingling, dysuria or hematuria, constipation or diarrhea , headaches or visual changes, or any other complaints. - Related Data Home Medications Medication Instructions Recorded Confirmed Budesonide-Formot 160-4.5 Mcg 2 puff INHALATION RT-BID 03/28/14 06/01/17 [Symbicort 160-4.5 Mcg Inhaler] Albuterol Inhaler [Ventolin Hfa 2 puff INHALATION RT-Q6H PRN 09/05/15 06/01/17 Inhaler] Omeprazole 20 mg PO BID 09/05/15 06/01/17 Venlafaxine HCl [Effexor XR] 150 mg PO HS 09/05/15 06/01/17 Azithromycin [Zithromax Z-pack] See Taper PO DAILY 05/30/17 06/01/17 Ibuprofen [Motrin] 800 mg PO TID PRN 05/30/17 06/01/17 Nystatin 400,000 unit PO 5XD 05/30/17 06/01/17 predniSONE See Taper PO DAILY 05/30/17 06/01/17 Previous Rx's Medication Instructions Recorded Anastrozole [Arimidex] 1 mg PO DAILY #30 tab 04/02/14 Famotidine [Pepcid] 20 mg PO BID #10 tablet 05/30/17 Allergies Allergy/AdvReac Type Severity Reaction Status Date / Time levofloxacin Allergy Rash/Hives Verified 06/01/17 14:11 ondansetron HCl AdvReac Severe Increased Verified 06/01/17 14:11 [From Zofran (as QT interval hydrochloride)] prochlorperazine edisylate AdvReac Severe Increased Verified 06/01/17 14:11 [From Compazine] QT interval prochlorperazine maleate AdvReac Severe Increased Verified 06/01/17 14:11 [From Compazine] QT Interval Review of Systems ROS Statement: Those systems with pertinent positive or pertinent negative responses have been documented in the HPI. ROS Other: All systems not noted in ROS Statement are negative. Past Medical History Past Medical History: Cancer, COPD, GERD/Reflux, GI Bleed, Hypertension, Pneumonia Additional Past Medical History / Comment(s): COPD, baseline FEV1 of 37% of predicted consistent with severe COPD, metastatic breast cancer, hypertension, cyclic vomiting syndrome, lymphedema of the right upper extremity related to previous breast surgery, chronic sinus disease, history of QT prolongation secondary to antibiotic use. She also has history of GI bleed, GERD History of Any Multi-Drug Resistant Organisms: None Reported Past Surgical History: Breast Surgery, Orthopedic Surgery Additional Past Surgical History / Comment(s): Cone biopsy at age 22 years of age, multiple colonoscopies and EGDs. Thoracoscopy with minimal thoracotomy and pleural biopsy, D&C.. bilateral mastectomy and lymph nodeectomy, LT THUMB TRIGGER FINGER SX, LT KNEE ARTHROSOCPY, LT ACL REPAIR Past Anesthesia/Blood Transfusion Reactions: Postoperative Nausea & Vomiting ( PONV) Past Psychological History: Anxiety, Depression Smoking Status: Former smoker Past Alcohol Use History: Rare Past Drug Use History: None Reported - Past Family History Father Family Medical History: Cancer Additional Family Medical History / Comment(s): Patient reports her father of lung cancer at age 59. Brother(s) Additional Family Medical History / Comment(s): Patient has to penicillin major medical problems. Patient has 2 sisters with no major medical problems. Patient has one daughter with no major medical problems. Mother Additional Family Medical History / Comment(s): MOM IS HEALTHY AT AGE 80 General Exam - General Exam Comments Initial Comments: General: The patient is awake and alert, in no distress, and does not appear acutely ill. Eye: Pupils are equal, round and reactive to light, extra-ocular movements are intact. No nystagmus. There is normal conjunctiva bilaterally. No signs of icterus. Ears, nose, mouth and throat: There are moist mucous membranes and no oral lesions. Neck: The neck is supple, there is no tenderness or JVD. Cardiovascular: There is a regular rate and rhythm. No murmur, rub or gallop is appreciated. Respiratory: Lungs are clear to auscultation, respirations are non-labored, breath sounds are equal. No wheezes, stridor, rales, or rhonchi. Gastrointestinal: Normal appearance of the abdomen. Normal bowel sounds. Abdomen soft on palpation. Patient does have tenderness epigastric. No guarding. No CVA tenderness. Musculoskeletal: Normal ROM, no tenderness. Strength 5/5. Sensation intact. Pulses equal bilaterally 2+. Neurological: A&O x 3. CN II-XII intact, There are no obvious motor or sensory deficits. Coordination appears grossly intact. Speech is normal. Skin: Skin is warm and dry and no rashes or lesions are noted. Psychiatric: Cooperative, appropriate mood & affect, normal judgment. Limitations: no limitations Course Vital Signs 06/01/17 14:00 Temperature 98.5 F Pulse Rate 89 Respiratory 18 Rate Blood Pressure 156/96 O2 Sat by Pulse 96 Oximetry Medical Decision Making - Medical Decision Making Patient reexamined at this time shows no signs of distress. She does admit that she feeling better after GI cocktail. Her pain was midepigastric area. Was discussed about steroids possibly causing gastritis. Patient will be discharged home she is feeling well at this time and advised to continue with her medications have been previously prescribed. She is currently taking omeprazole and also Pepcid. Advised follow-up the family doctor and also GI for further evaluation. Advised return here to the emergency room if any symptoms increase or worsen or for any other concerns. - Lab Data Result diagrams: 06/01/17 14:25 06/01/17 14:25 Lab Results 06/01/17 06/01/17 06/01/17 Range/Units 14:25 14:25 15:00 WBC 12.6 H (3.8-10.6) k/uL RBC 4.87 (3.80-5.40) m/uL Hgb 15.0 (11.4-16.0) gm/dL Hct 44.7 (34.0-46.0) % MCV 91.8 (80.0-100.0) fL MCH 30.7 (25.0-35.0) pg MCHC 33.5 (31.0-37.0) g/dL RDW 15.0 (11.5-15.5) % Plt Count 380 (150-450) k/uL Neutrophils % 87 % Lymphocytes % 7 % Monocytes % 4 % Eosinophils % 1 % Basophils % 0 % Neutrophils # 11.0 H (1.3-7.7) k/uL Lymphocytes # 0.9 L (1.0-4.8) k/uL Monocytes # 0.6 (0-1.0) k/uL Eosinophils # 0.1 (0-0.7) k/uL Basophils # 0.0 (0-0.2) k/uL Sodium 135 L (137-145) mmol/L Potassium 3.2 L (3.5-5.1) mmol/L Chloride 95 L (98-107) mmol/L Carbon Dioxide 31 H (22-30) mmol/L Anion Gap 9 mmol/L BUN 11 (7-17) mg/dL Creatinine 0.53 (0.52-1.04) mg/dL Est GFR (MDRD) Af Amer >60 (>60 ml/min/1.73 sqM) Est GFR (MDRD) Non-Af >60 (>60 ml/min/1.73 sqM) Glucose 163 H (74-99) mg/dL Calcium 9.1 (8.4-10.2) mg/dL Total Bilirubin 0.6 (0.2-1.3) mg/dL AST 28 (14-36) U/L ALT 39 (9-52) U/L Alkaline Phosphatase 74 (38-126) U/L Total Protein 7.1 (6.3-8.2) g/dL Albumin 4.5 (3.5-5.0) g/dL Lipase 48 (23-300) U/L Urine Color Colorless Urine Appearance Cloudy H (Clear) Urine pH 7.5 (5.0-8.0) Ur Specific [place] 1.005 (1.001-1.035) Urine Protein Negative (Negative) Urine Glucose (UA) 1+ H (Negative) Urine Ketones Negative (Negative) Urine Blood Negative (Negative) Urine Nitrite Negative (Negative) Urine Bilirubin Negative (Negative) Urine Urobilinogen <2.0 (<2.0) mg/dL Ur Leukocyte Esterase Negative (Negative) Urine RBC 3 (0-5) /hpf Ur Squamous Epith Cells <1 (0-4) /hpf Amorphous Sediment Rare H (None) /hpf Disposition Clinical Impression: Epigastric pain Disposition: HOME SELF-CARE Condition: Good Instructions: Abdominal Pain (ED) Additional Instructions: Please use medication as discussed. Please follow-up with family doctor in the next 2 days of symptoms have not improved. Please return to emergency room if the symptoms increase or worsen or for any other concerns. Referrals: Sanjay Alberts DO [Primary Care Provider] - 1-2 days Saw Buchanan MD [STAFF PHYSICIAN] - 1-2 days Time of Disposition: 15:25
[2017-06-01 14:48] LABS: ALT 39 U/L (9-52); AST 28 U/L (14-36); Alkaline Phosphatase 74 U/L (38-126); Anion Gap 9 mmol/L; Basophils % (A) 0 %; Blood Urea Nitrogen 11 mg/dL (7-17); CH 31.7; CHCM 34.7; Calcium 9.1 mg/dL (8.4-10.2); Carbon Dioxide 31 mmol/L (22-30); Chloride 95 mmol/L (98-107); Eosinophils # (A) 0.1 k/uL (0-0.7); Eosinophils % (A) 1 %; Glucose 163 mg/dL (74-99); HCT 44.7 % (34.0-46.0); HDW 2.36; Luc # (Auto) 0.07; Luc % (Auto) 1; Lymphocytes # (A) 0.9 k/uL (1.0-4.8); Lymphocytes % (A) 7 %; MCH 30.7 pg (25.0-35.0); MCHC 33.5 g/dL (31.0-37.0); MCV 91.8 fL (80.0-100.0); Mean Platelet Volume 6.6; Monocytes # (A) 0.6 k/uL (0-1.0); Monocytes % (A) 4 %; Neutrophils % (A) 87 %; Non-African American GFR(MDRD) >60 (>60 ml/min/1.73 sqM); Potassium 3.2 mmol/L (3.5-5.1); RBC 4.87 m/uL (3.80-5.40); Sodium 135 mmol/L (137-145); Total Bilirubin 0.6 mg/dL (0.2-1.3); Total Protein 7.1 g/dL (6.3-8.2); WBC 12.6 k/uL (3.8-10.6); WBC (Perox) 12.55
[2017-06-01] MEDS ORDERED: MAG HYDROX/AL HYDROX/SIMETH 30 ML, HYOSCYAMINE ELIXIR 10 ML, CIMETIDINE HCL 300 MG, LID... PO STA ×4 (14:49)
--- NOTE | 2017-06-01 15:06 | XR ---
EXAMINATION TYPE: XR KUB DATE OF EXAM: 06/01/2017 CLINICAL DATA: 56 year-old female abdominal pain, nausea, vomiting, PHH COMPARISON: 01/06/2017 FINDINGS: No evidence for free intraperitoneal air. No dilated small bowel or air-fluid levels. Minimal scattered stool. No suspicious calcifications identified. IMPRESSION: No evidence of bowel obstruction or free intraperitoneal air.
[2017-06-01 15:16] LABS: Amorphous Sediment,Urine Rare /hpf; Appearance,Urine Cloudy (Clear); Bilirubin,Urine Negative (Negative); Glucose,Urine (UA) 1+ (Negative); Ketones,Urine Negative (Negative); Leukocyte Esterase,Urine Negative (Negative); Nitrite,Urine Negative (Negative); PH, Urine 7.5 (5.0-8.0); Particle Count 12412; Protein,Urine Negative (Negative); RBC,Urine 3 /hpf (0-5); Specific Gravity,Urine 1.005 (1.001-1.035); Squamous Epithelial Cell,Urine <1 /hpf (0-4); UA Billing (MACRO vs. MICRO) MICRO; Urobilinogen,Urine <2.0 mg/dL (<2.0)
[2017-06-01 16:04] VITALS: BP 135/74; PULSE 92; TEMP 98.7
== END 2017-06-01 15:45 | disposition home or self-care (01) ==
LOC: EC 13:49
DX: R10.13 Epigastric pain (principal); R11.2 Nausea with vomiting, unspecified; J44.9 Chronic obstructive pulmonary disease, unspecified; K21.9 Gastro-esophageal reflux disease without esophagitis; I10 Essential (primary) hypertension; Z85.3 Personal history of malignant neoplasm of breast; F32.9 Major depressive disorder, single episode, unspecified; F41.9 Anxiety disorder, unspecified; Z87.891 Personal history of nicotine dependence; Z79.51 Long term (current) use of inhaled steroids; Z79.52 Long term (current) use of systemic steroids; Z79.899 Other long term (current) drug therapy; Z88.1 Allergy status to other antibiotic agents; Z88.8 Allergy status to other drugs, medicaments and biological substances
CPT/HCPCS: 36415; 80053; 83690; 85025; 81001; 74000; 99284; 96374; 96375; 96361; J2765

== ENCOUNTER 2017-08-20 02:00 | Emergency (ER) | payer MEDICARE ==
[2017-08-20] MEDS ORDERED: FAMOTIDINE 20 MG/2 ML VIAL IV STA (02:28)
[2017-08-20] MEDS ORDERED: IPRATROPIUM-ALBUTEROL 3 ML NEB INHALATION STA (02:28)
[2017-08-20] MEDS ORDERED: methylPREDNISolone SOD SUCCI 125 MG/2 ML VIAL IV STA (02:28)
[2017-08-20] MEDS ORDERED: diphenhydrAMINE 50 MG/ML 1 ML VIAL IVP STA ×2 (02:29→06:25)
--- NOTE | 2017-08-20 02:32 | ED ---
General Adult HPI - General Chief complaint: Shortness of Breath Stated complaint: Nausea/Vomiting Time Seen by Provider: 08/20/17 02:19 Source: patient, family, RN notes reviewed Mode of arrival: wheelchair Limitations: no limitations - History of Present Illness Initial comments: Patient is a pleasant 56-year-old female presenting to the emergency department with shortness of breath and nausea and vomiting. Patient history is supplemented by cycle liaison. Patient was recently discharged from the hospital for COPD. Patient did okay for a couple of days. Patient was more short of breath today and pulse ox was in the upper 80s. Patient does have a history of severe COPD. Patient has had several episodes of nausea and vomiting. Onset was around 6 PM. Patient thinks she may have had some mild chest discomfort however occasionally does get that with her COPD. No fevers. No leg pain or leg swelling. - Related Data Home Medications Medication Instructions Recorded Confirmed Budesonide-Formot 160-4.5 Mcg 2 puff INHALATION RT-BID 03/28/14 08/20/17 [Symbicort 160-4.5 Mcg Inhaler] Albuterol Inhaler [Ventolin Hfa 2 puff INHALATION RT-Q6H PRN 09/05/15 08/20/17 Inhaler] Omeprazole 20 mg PO BID 09/05/15 08/20/17 Venlafaxine HCl [Effexor XR] 150 mg PO DAILY 09/05/15 08/20/17 Albuterol Nebulized [Ventolin 2.5 mg INHALATION RT-Q6H 08/12/17 08/20/17 Nebulized] Calcium Carbonate/Vitamin D3 1 tab PO BID 08/12/17 08/20/17 [Calcium 600-Vit D3 400 Tablet] Loratadine [Claritin] 10 mg PO DAILY 08/12/17 08/20/17 Promethazine [Phenergan] 25 mg PO ONCE PRN 08/12/17 08/20/17 amLODIPine [Norvasc] 5 mg PO DAILY 08/12/17 08/20/17 clonazePAM [KlonoPIN] 1 mg PO TID 08/12/17 08/20/17 guaiFENesin [Mucinex] 600 mg PO DAILY 08/12/17 08/20/17 Nystatin 100,000 unit PO 08/20/17 Previous Rx's Medication Instructions Recorded Anastrozole [Arimidex] 1 mg PO DAILY #30 tab 04/02/14 Melatonin 6 mg PO HS PRN tablet 08/16/17 Nicotine 21Mg/24Hr Patch [Habitrol] 1 patch TRANSDERM DAILY PRN patch 08/16/17 predniSONE 10 mg PO DAILY #42 tab 08/16/17 Allergies Allergy/AdvReac Type Severity Reaction Status Date / Time levofloxacin Allergy Rash/Hives Verified 08/12/17 14:30 ondansetron HCl AdvReac Severe Increased Verified 08/12/17 14:30 [From Zofran (as QT interval hydrochloride)] prochlorperazine edisylate AdvReac Severe Increased Verified 08/12/17 14:30 [From Compazine] QT interval prochlorperazine maleate AdvReac Severe Increased Verified 08/12/17 14:30 [From Compazine] QT Interval Review of Systems ROS Statement: Those systems with pertinent positive or pertinent negative responses have been documented in the HPI. ROS Other: All systems not noted in ROS Statement are negative. Constitutional: Denies: fever Eyes: Denies: eye pain ENT: Denies: ear pain Respiratory: Reports: dyspnea Cardiovascular: Denies: palpitations Endocrine: Denies: fatigue Gastrointestinal: Reports: nausea, vomiting. Denies: abdominal pain Genitourinary: Denies: dysuria Musculoskeletal: Denies: back pain Skin: Denies: rash Neurological: Denies: weakness Past Medical History Past Medical History: Cancer, COPD, GERD/Reflux, GI Bleed, Hypertension, Pneumonia Additional Past Medical History / Comment(s): COPD, baseline FEV1 of 37% of predicted consistent with severe COPD, metastatic breast cancer, hypertension, cyclic vomiting syndrome, lymphedema of the right upper extremity related to previous breast surgery, chronic sinus disease, history of QT prolongation secondary to antibiotic use. 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 History of Any Multi-Drug Resistant Organisms: None Reported Past Surgical History: Breast Surgery, Orthopedic Surgery Additional Past Surgical History / Comment(s): Cone biopsy at age 22 years of age, multiple colonoscopies and EGDs. Thoracoscopy with minimal thoracotomy and pleural biopsy, D&C.. bilateral mastectomy and lymph nodeectomy, LT and RT THUMB TRIGGER FINGER SX, LT KNEE ARTHROSOCPY X2 , LT ACL REPAIR Past Anesthesia/Blood Transfusion Reactions: Postoperative Nausea & Vomiting ( PONV) Past Psychological History: Anxiety, Depression Smoking Status: Former smoker Past Alcohol Use History: Rare Past Drug Use History: None Reported - Past Family History Father Family Medical History: Cancer Additional Family Medical History / Comment(s): Patient reports her father of lung cancer at age 59. Brother(s) Additional Family Medical History / Comment(s): Patient has to penicillin major medical problems. Patient has 2 sisters with no major medical problems. Patient has one daughter with no major medical problems. Mother Additional Family Medical History / Comment(s): MOM IS HEALTHY AT AGE 80 General Exam Limitations: no limitations General appearance: alert, in no apparent distress Head exam: Present: atraumatic Eye exam: Present: normal appearance ENT exam: Present: normal oropharynx Neck exam: Present: normal inspection Respiratory exam: Present: wheezes. Absent: respiratory distress Cardiovascular Exam: Present: regular rate, normal rhythm Expanded Peripheral pulses: 2+: Radial (R), Radial (L), Dorsalis Pedis (R), Dorsalis Pedis (L) GI/Abdominal exam: Present: soft. Absent: tenderness Extremities exam: Present: normal inspection. Absent: pedal edema, calf tenderness Neurological exam: Present: alert Psychiatric exam: Present: normal affect, normal mood Skin exam: Present: normal color Course Vital Signs 08/20/17 08/20/17 08/20/17 02:03 02:44 02:45 Temperature 97.3 F L Pulse Rate 81 71 74 Respiratory 20 Rate Blood Pressure 169/101 O2 Sat by Pulse 93 L Oximetry 08/20/17 08/20/17 03:16 04:26 Temperature Pulse Rate 79 Respiratory 22 20 Rate Blood Pressure 162/97 O2 Sat by Pulse 98 100 Oximetry - Reevaluation(s) Reevaluation #1: 08/20/17 06:27 Patient vomited GI cocktail. Patient states she can have promethazine. 08/20/17 06:39 Patient states she is feeling better and is comfortable with discharge if she receives a shot of Phenergan. EKG Findings - EKG Comments: EKG Findings:: Normal sinus rhythm 70. CA 142. QRS 90. QT 438. QTC 473. Normal axis. Normal QRS. No acute ST change. Medical Decision Making - Lab Data Result diagrams: 08/20/17 02:40 08/20/17 02:40 Lab Results 08/20/17 08/20/17 08/20/17 Range/Units 02:40 02:40 02:40 WBC 14.5 H (3.8-10.6) k/uL RBC 4.87 (3.80-5.40) m/uL Hgb 14.8 (11.4-16.0) gm/dL Hct 44.9 (34.0-46.0) % MCV 92.2 (80.0-100.0) fL MCH 30.4 (25.0-35.0) pg MCHC 33.0 (31.0-37.0) g/dL RDW 13.5 (11.5-15.5) % Plt Count 374 (150-450) k/uL Neutrophils % 82 % Lymphocytes % 11 % Monocytes % 5 % Eosinophils % 1 % Basophils % 0 % Neutrophils # 11.9 H (1.3-7.7) k/uL Lymphocytes # 1.6 (1.0-4.8) k/uL Monocytes # 0.7 (0-1.0) k/uL Eosinophils # 0.2 (0-0.7) k/uL Basophils # 0.0 (0-0.2) k/uL PT (9.0-12.0) sec INR (<1.2) APTT (22.0-30.0) sec D-Dimer (<0.60) mg/L FEU Sodium 134 L (137-145) mmol/L Potassium 3.8 (3.5-5.1) mmol/L Chloride 91 L (98-107) mmol/L Carbon Dioxide 35 H (22-30) mmol/L Anion Gap 8 mmol/L BUN 17 (7-17) mg/dL Creatinine 0.60 (0.52-1.04) mg/dL Est GFR (MDRD) Af Amer >60 (>60 ml/min/1.73 sqM) Est GFR (MDRD) Non-Af >60 (>60 ml/min/1.73 sqM) Glucose 160 H (74-99) mg/dL Calcium 9.7 (8.4-10.2) mg/dL Total Bilirubin 0.5 (0.2-1.3) mg/dL AST 32 (14-36) U/L ALT 53 H (9-52) U/L Alkaline Phosphatase 77 (38-126) U/L Total Creatine Kinase 91 (30-135) U/L CK-MB (CK-2) 2.0 (0.0-2.4) ng/mL CK-MB (CK-2) Rel Index 2.2 Troponin I <0.012 (0.000-0.034) ng/mL NT-Pro-B Natriuret Pep pg/mL Total Protein 7.5 (6.3-8.2) g/dL Albumin 4.7 (3.5-5.0) g/dL 08/20/17 08/20/17 Range/Units 02:40 02:40 WBC (3.8-10.6) k/uL RBC (3.80-5.40) m/uL Hgb (11.4-16.0) gm/dL Hct (34.0-46.0) % MCV (80.0-100.0) fL MCH (25.0-35.0) pg MCHC (31.0-37.0) g/dL RDW (11.5-15.5) % Plt Count (150-450) k/uL Neutrophils % % Lymphocytes % % Monocytes % % Eosinophils % % Basophils % % Neutrophils # (1.3-7.7) k/uL Lymphocytes # (1.0-4.8) k/uL Monocytes # (0-1.0) k/uL Eosinophils # (0-0.7) k/uL Basophils # (0-0.2) k/uL PT 10.2 (9.0-12.0) sec INR 1.0 (<1.2) APTT 20.8 L (22.0-30.0) sec D-Dimer 0.26 (<0.60) mg/L FEU Sodium (137-145) mmol/L Potassium (3.5-5.1) mmol/L Chloride (98-107) mmol/L Carbon Dioxide (22-30) mmol/L Anion Gap mmol/L BUN (7-17) mg/dL Creatinine (0.52-1.04) mg/dL Est GFR (MDRD) Af Amer (>60 ml/min/1.73 sqM) Est GFR (MDRD) Non-Af (>60 ml/min/1.73 sqM) Glucose (74-99) mg/dL Calcium (8.4-10.2) mg/dL Total Bilirubin (0.2-1.3) mg/dL AST (14-36) U/L ALT (9-52) U/L Alkaline Phosphatase (38-126) U/L Total Creatine Kinase (30-135) U/L CK-MB (CK-2) (0.0-2.4) ng/mL CK-MB (CK-2) Rel Index Troponin I (0.000-0.034) ng/mL NT-Pro-B Natriuret Pep 56 pg/mL Total Protein (6.3-8.2) g/dL Albumin (3.5-5.0) g/dL Disposition Clinical Impression: Acute exacerbation of chronic obstructive airways disease, Vomiting Disposition: HOME SELF-CARE Condition: Stable Instructions: Acute Nausea and Vomiting (ED), COPD (Chronic Obstructive Pulmonary Disease) (ED) Additional Instructions: Please follow-up with your primary care physician Tuesday. Return for not tolerating fluids, difficult to breathing, worsening symptoms or other concerns. Referrals: Sanjay Alberts DO [Primary Care Provider] - 1-2 days
[2017-08-20 03:06] LABS: Basophils % (A) 0 %; CH 30.4; CHCM 33.1; Eosinophils # (A) 0.2 k/uL (0-0.7); Eosinophils % (A) 1 %; HCT 44.9 % (34.0-46.0); HGB 14.8 gm/dL (11.4-16.0); Luc # (Auto) 0.15; Luc % (Auto) 1; Lymphocytes # (A) 1.6 k/uL (1.0-4.8); Lymphocytes % (A) 11 %; MCH 30.4 pg (25.0-35.0); MCV 92.2 fL (80.0-100.0); Mean Platelet Volume 6.2; Monocytes # (A) 0.7 k/uL (0-1.0); Monocytes % (A) 5 %; Neutrophils # (A) 11.9 k/uL (1.3-7.7); Neutrophils % (A) 82 %; RBC 4.87 m/uL (3.80-5.40); RDW 13.5 % (11.5-15.5); WBC 14.5 k/uL (3.8-10.6); WBC (Perox) 13.83
[2017-08-20 03:12] LABS: ALT 53 U/L (9-52); AST 32 U/L (14-36); Alkaline Phosphatase 77 U/L (38-126); Anion Gap 8 mmol/L; Blood Urea Nitrogen 17 mg/dL (7-17); Calcium 9.7 mg/dL (8.4-10.2); Carbon Dioxide 35 mmol/L (22-30); Chloride 91 mmol/L (98-107); Glucose 160 mg/dL (74-99); Non-African American GFR(MDRD) >60 (>60 ml/min/1.73 sqM); Potassium 3.8 mmol/L (3.5-5.1); Sodium 134 mmol/L (137-145); Total Bilirubin 0.5 mg/dL (0.2-1.3); Total Protein 7.5 g/dL (6.3-8.2)
--- NOTE | 2017-08-20 03:13 | XR ---
EXAMINATION TYPE: XR chest 2V DATE OF EXAM: 08/20/2017 COMPARISON: 08/12/2017 HISTORY: Nausea and vomiting TECHNIQUE: Frontal and lateral views of the chest are obtained. FINDINGS: There is blunting of right costophrenic angle. Trachea is deviated slightly to the right s dillon. Left lung is clear. There is no heart failure. Heart size is normal. There are chest leads. Ther e are surgical clips at the right axilla. IMPRESSION: Previous surgery. 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 No heart failure. There is also no change compared to 2016.
[2017-08-20 03:16] LABS: Creatine Kinase 91 U/L (30-135)
[2017-08-20 03:26] LABS: Prothrombin Time 10.2 sec (9.0-12.0)
[2017-08-20 03:29] LABS: Troponin I <0.012 ng/mL (0.000-0.034)
[2017-08-20 03:34] LABS: Partial Thromboplastin Time 20.8 sec (22.0-30.0)
[2017-08-20] MEDS ORDERED: MAG HYDROX/AL HYDROX/SIMETH 30 ML, HYOSCYAMINE ELIXIR 10 ML, CIMETIDINE HCL 300 MG, LID... PO STA ×4 (04:53)
[2017-08-20] MEDS ORDERED: LORazepam 2 MG/ML INJ IV STA (05:18)
[2017-08-20] MEDS ORDERED: PROMETHAZINE INJ 25 MG/ML 1 ML VIAL IM STA (06:26)
[2017-08-20 07:24] VITALS: BP 177/106; PULSE 90; RESP 14; TEMP 98
== END 2017-08-20 07:31 | disposition home or self-care (01) ==
LOC: EC 02:00
DX: J44.1 Chronic obstructive pulmonary disease with (acute) exacerbation (principal); R11.2 Nausea with vomiting, unspecified; F32.9 Major depressive disorder, single episode, unspecified; F41.9 Anxiety disorder, unspecified; K21.9 Gastro-esophageal reflux disease without esophagitis; I10 Essential (primary) hypertension; Z87.01 Personal history of pneumonia (recurrent); Z85.3 Personal history of malignant neoplasm of breast; Z87.891 Personal history of nicotine dependence; Z88.1 Allergy status to other antibiotic agents; Z88.8 Allergy status to other drugs, medicaments and biological substances; Z79.51 Long term (current) use of inhaled steroids; Z79.899 Other long term (current) drug therapy
CPT/HCPCS: 36415; 94640; 85379; 83880; 80053; 82550; 82553; 84484; 85025; 85610; 85730; 71020; 99285; 96374; 96376; 96375 ×3; 96372; J2060; J1200; J2550; J2930; 93005

== ENCOUNTER 2017-11-03 11:27 | Inpatient (IN) | payer MEDICARE ==
[2017-11-03] MEDS ORDERED: SODIUM CHLORIDE 0.9% 1,000 ML IV STA (11:54)
[2017-11-03] MEDS ORDERED: AZITHROMYCIN 500 MG in SODIUM CHLORIDE 0.9% 250 ML IVPB STA (11:54)
[2017-11-03] MEDS ORDERED: ALBUTEROL NEBULIZED 2.5 MG/3 ML INHALATION STA (11:54)
[2017-11-03] MEDS ORDERED: IPRATROPIUM 0.5 MG/2.5 ML NEBU INHALATION STA (11:54)
[2017-11-03] MEDS ORDERED: methylPREDNISolone SOD SUCCI 125 MG/2 ML VIAL IV STA (11:54)
[2017-11-03] MEDS ORDERED: SODIUM CHLORIDE 0.9% 500 ML IV STA (11:54)
[2017-11-03] MEDS ORDERED: cefTRIAXone IN SWFI 2,000 MG/20 ML SYRINGE IVP STA (11:59)
--- NOTE | 2017-11-03 11:59 | ED ---
SOB HPI - General Chief Complaint: Shortness of Breath Stated Complaint: SOB Time Seen by Provider: 11/03/17 11:33 Source: patient Mode of arrival: wheelchair Limitations: no limitations - History of Present Illness Initial Comments: 56 years old female presents with a severe shortness of breath she does have a history of COPD then she had a history of radiation to the chest she had a metastatic cancer which she went to the pleural space, has a chest pain now is worse with the deep breaths she is coughing up a bunch of phlegm she also had a fever today chills and shakes really denies any neck stiffness have a chest pain or shortness of breath abdominal pain no frequency urgency dysuria no symptoms of TIA or CVA - Related Data Home Medications Medication Instructions Recorded Confirmed Budesonide-Formot 160-4.5 Mcg 2 puff INHALATION RT-BID 03/28/14 11/03/17 [Symbicort 160-4.5 Mcg Inhaler] Albuterol Inhaler [Ventolin Hfa 2 puff INHALATION RT-Q6H PRN 09/05/15 11/03/17 Inhaler] Omeprazole 20 mg PO DAILY 09/05/15 11/03/17 Venlafaxine HCl [Effexor XR] 150 mg PO DAILY 09/05/15 11/03/17 Albuterol Nebulized [Ventolin 2.5 mg INHALATION RT-Q4H PRN 08/12/17 11/03/17 Nebulized] Calcium Carbonate/Vitamin D3 2 tab PO DAILY 08/12/17 11/03/17 [Calcium 600-Vit D3 400 Tablet] amLODIPine [Norvasc] 5 mg PO BID 08/12/17 11/03/17 clonazePAM [KlonoPIN] 1 mg PO TID 08/12/17 11/03/17 guaiFENesin [Mucinex] 600 mg PO BID 08/12/17 11/03/17 Previous Rx's Medication Instructions Recorded Anastrozole [Arimidex] 1 mg PO DAILY #30 tab 04/02/14 Melatonin 6 mg PO HS PRN tablet 08/16/17 Allergies Allergy/AdvReac Type Severity Reaction Status Date / Time levofloxacin Allergy Rash/Hives Verified 11/03/17 11:31 ondansetron HCl AdvReac Severe Increased Verified 09/13/17 15:11 [From Zofran (as QT interval hydrochloride)] prochlorperazine edisylate AdvReac Severe Increased Verified 09/13/17 15:11 [From Compazine] QT interval prochlorperazine maleate AdvReac Severe Increased Verified 09/13/17 15:11 [From Compazine] QT Interval Review of Systems ROS Statement: Those systems with pertinent positive or pertinent negative responses have been documented in the HPI. ROS Other: All systems not noted in ROS Statement are negative. Past Medical History Past Medical History: Cancer, COPD, GERD/Reflux, GI Bleed, Hypertension, Pneumonia Additional Past Medical History / Comment(s): COPD, baseline FEV1 of 37% of predicted consistent with severe COPD, metastatic breast cancer, hypertension, cyclic vomiting syndrome, lymphedema of the right upper extremity related to previous breast surgery, chronic sinus disease, history of QT prolongation secondary to antibiotic use. 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 History of Any Multi-Drug Resistant Organisms: None Reported Past Surgical History: Breast Surgery, Orthopedic Surgery Additional Past Surgical History / Comment(s): Cone biopsy at age 22 years of age, multiple colonoscopies and EGDs. Thoracoscopy with minimal thoracotomy and pleural biopsy, D&C.. bilateral mastectomy and lymph nodeectomy, LT and RT THUMB TRIGGER FINGER SX, LT KNEE ARTHROSOCPY X2 , LT ACL REPAIR Past Anesthesia/Blood Transfusion Reactions: Postoperative Nausea & Vomiting ( PONV) Past Psychological History: Anxiety, Depression Smoking Status: Former smoker Past Alcohol Use History: Rare Past Drug Use History: None Reported - Past Family History Father Family Medical History: Cancer Additional Family Medical History / Comment(s): Patient reports her father of lung cancer at age 59. Brother(s) Additional Family Medical History / Comment(s): Patient has to penicillin major medical problems. Patient has 2 sisters with no major medical problems. Patient has one daughter with no major medical problems. Mother Additional Family Medical History / Comment(s): MOM IS HEALTHY AT AGE 80 General Exam Limitations: no limitations Course Vital Signs 11/03/17 11/03/17 11/03/17 11:28 11:31 12:05 Temperature 98.3 F 100.4 F H Pulse Rate 105 H Respiratory 26 H 24 Rate Blood Pressure 146/90 O2 Sat by Pulse 86 L Oximetry 11/03/17 11/03/17 11/03/17 12:19 12:32 13:07 Temperature Pulse Rate 98 90 112 H Respiratory 24 Rate Blood Pressure 167/98 O2 Sat by Pulse 99 Oximetry 11/03/17 13:11 Temperature Pulse Rate 112 H Respiratory Rate Blood Pressure O2 Sat by Pulse Oximetry EKG is normal sinus rhythm ventricular rate is 92 DC interval is 128 QRS duration is 84 QT/QTc is 376/464 review of this EKG does not reveal any ST elevation or ST depression Patient is reassessed at 1400, chest x-ray didn't reveal any infiltrate d-dimer is unremarkable troponin and EKG are unremarkable patient feels a little better as well as COPD is concerned that she still very weak and requesting admission for gallbladder admitted under Dr. Babb's service and she will get the inhaled and IV steroids along with some antibiotics Medical Decision Making - Lab Data Result diagrams: 11/03/17 11:58 11/03/17 11:58 Lab Results 11/03/17 11/03/17 11/03/17 Range/Units 11:58 11:58 11:58 WBC 11.2 H (3.8-10.6) k/uL RBC 4.96 (3.80-5.40) m/uL Hgb 14.7 (11.4-16.0) gm/dL Hct 47.3 H (34.0-46.0) % MCV 95.5 (80.0-100.0) fL MCH 29.7 (25.0-35.0) pg MCHC 31.1 (31.0-37.0) g/dL RDW 14.1 (11.5-15.5) % Plt Count 383 (150-450) k/uL Neutrophils % 89 % Lymphocytes % 5 % Monocytes % 4 % Eosinophils % 1 % Basophils % 0 % Neutrophils # 10.0 H (1.3-7.7) k/uL Lymphocytes # 0.5 L (1.0-4.8) k/uL Monocytes # 0.5 (0-1.0) k/uL Eosinophils # 0.1 (0-0.7) k/uL Basophils # 0.1 (0-0.2) k/uL PT (9.0-12.0) sec INR (<1.2) APTT (22.0-30.0) sec D-Dimer (<0.60) mg/L FEU Sodium 137 (137-145) mmol/L Potassium 3.6 (3.5-5.1) mmol/L Chloride 93 L (98-107) mmol/L Carbon Dioxide 34 H (22-30) mmol/L Anion Gap 10 mmol/L BUN 10 (7-17) mg/dL Creatinine 0.58 (0.52-1.04) mg/dL Est GFR (MDRD) Af Amer >60 (>60 ml/min/1.73 sqM) Est GFR (MDRD) Non-Af >60 (>60 ml/min/1.73 sqM) Glucose 132 H (74-99) mg/dL Calcium 9.3 (8.4-10.2) mg/dL Total Bilirubin 0.6 (0.2-1.3) mg/dL AST 25 (14-36) U/L ALT 25 (9-52) U/L Alkaline Phosphatase 84 (38-126) U/L Total Creatine Kinase 77 (30-135) U/L CK-MB (CK-2) 0.8 (0.0-2.4) ng/mL CK-MB (CK-2) Rel Index 1.0 Troponin I <0.012 (0.000-0.034) ng/mL Total Protein 7.6 (6.3-8.2) g/dL Albumin 4.4 (3.5-5.0) g/dL 11/03/17 Range/Units 11:58 WBC (3.8-10.6) k/uL RBC (3.80-5.40) m/uL Hgb (11.4-16.0) gm/dL Hct (34.0-46.0) % MCV (80.0-100.0) fL MCH (25.0-35.0) pg MCHC (31.0-37.0) g/dL RDW (11.5-15.5) % Plt Count (150-450) k/uL Neutrophils % % Lymphocytes % % Monocytes % % Eosinophils % % Basophils % % Neutrophils # (1.3-7.7) k/uL Lymphocytes # (1.0-4.8) k/uL Monocytes # (0-1.0) k/uL Eosinophils # (0-0.7) k/uL Basophils # (0-0.2) k/uL PT 9.8 (9.0-12.0) sec INR 1.0 (<1.2) APTT 24.7 (22.0-30.0) sec D-Dimer 0.31 (<0.60) mg/L FEU Sodium (137-145) mmol/L Potassium (3.5-5.1) mmol/L Chloride (98-107) mmol/L Carbon Dioxide (22-30) mmol/L Anion Gap mmol/L BUN (7-17) mg/dL Creatinine (0.52-1.04) mg/dL Est GFR (MDRD) Af Amer (>60 ml/min/1.73 sqM) Est GFR (MDRD) Non-Af (>60 ml/min/1.73 sqM) Glucose (74-99) mg/dL Calcium (8.4-10.2) mg/dL Total Bilirubin (0.2-1.3) mg/dL AST (14-36) U/L ALT (9-52) U/L Alkaline Phosphatase (38-126) U/L Total Creatine Kinase (30-135) U/L CK-MB (CK-2) (0.0-2.4) ng/mL CK-MB (CK-2) Rel Index Troponin I (0.000-0.034) ng/mL Total Protein (6.3-8.2) g/dL Albumin (3.5-5.0) g/dL Disposition Clinical Impression: Acute exacerbation of COPD with asthma Disposition: ADMITTED IP TO THIS HOSP Condition: Good Referrals: Philip Azevedo MD [Primary Care Provider] - 1-2 days
[2017-11-03 12:10] LABS: Basophils # (A) 0.1 k/uL (0-0.2); Basophils % (A) 0 %; Eosinophils # (A) 0.1 k/uL (0-0.7); Eosinophils % (A) 1 %; HCT 47.3 % (34.0-46.0); HGB 14.7 gm/dL (11.4-16.0); Lymphocytes # (A) 0.5 k/uL (1.0-4.8); Lymphocytes % (A) 5 %; MCH 29.7 pg (25.0-35.0); MCHC 31.1 g/dL (31.0-37.0); MCV 95.5 fL (80.0-100.0); Mean Platelet Volume 5.9; Monocytes # (A) 0.5 k/uL (0-1.0); Monocytes % (A) 4 %; Neutrophils % (A) 89 %; Platelet Count 383 k/uL (150-450); RBC 4.96 m/uL (3.80-5.40); RDW 14.1 % (11.5-15.5); WBC 11.2 k/uL (3.8-10.6)
[2017-11-03 12:37] LABS: Partial Thromboplastin Time 24.7 sec (22.0-30.0); Prothrombin Time 9.8 sec (9.0-12.0)
[2017-11-03 12:38] LABS: Creatine Kinase 77 U/L (30-135)
[2017-11-03 12:42] LABS: D-Dimer 0.31 mg/L FEU (<0.60)
[2017-11-03 12:51] LABS: ALT 25 U/L (9-52); AST 25 U/L (14-36); Albumin 4.4 g/dL (3.5-5.0); Alkaline Phosphatase 84 U/L (38-126); Anion Gap 10 mmol/L; Blood Urea Nitrogen 10 mg/dL (7-17); Calcium 9.3 mg/dL (8.4-10.2); Carbon Dioxide 34 mmol/L (22-30); Chloride 93 mmol/L (98-107); Creatine Kinase MB 0.8 ng/mL (0.0-2.4); Glucose 132 mg/dL (74-99); Potassium 3.6 mmol/L (3.5-5.1); Sodium 137 mmol/L (137-145); Total Bilirubin 0.6 mg/dL (0.2-1.3); Total Protein 7.6 g/dL (6.3-8.2); Troponin I <0.012 ng/mL (0.000-0.034)
[2017-11-03] MEDS ORDERED: MORPHINE SULFATE 4 MG/ML SYRINGE IVP STA ×2 (13:05→19:37)
[2017-11-03] MEDS ORDERED: ONDANSETRON 4 MG/2 ML VIAL IVP STA (13:05)
--- NOTE | 2017-11-03 13:43 | XR ---
EXAMINATION TYPE: XR chest 2V DATE OF EXAM: 11/03/2017 COMPARISON: Prior chest x-ray 09/13/2017 HISTORY: Difficulty breathing, vomiting TECHNIQUE: Frontal and lateral views of the chest are obtained. FINDINGS: Postop changes are again noted to the right axillary region and breasts post prosthesis pl acement, there are overlying cardiac leads. Volume loss present in the right hemithorax, there are ar eas of scarring. No evident airspace disease, pneumothorax, or pleural effusion. Cardiomediastinal si lhouette, pulmonary vascularity and iza are not significantly changed. There is an underlying scolio sis present. IMPRESSION: No acute abnormalities evident.
[2017-11-03] MEDS ORDERED: MELATONIN 3 MG TABLET PO PRN (14:16)
[2017-11-03] MEDS: IPRATROPIUM-ALBUTEROL 3 ML NEB INHALATION PRN ×3 (15:27→21:13)
--- NOTE | 2017-11-03 15:29 | P.HPIM ---
History of Present Illness H&P Date: 11/03/17 Chief Complaint: Shortness of breath This is a 56-year-old female one of Dr. Alberts with a previous medical history significant for breast cancer with metastatic disease to the regular status post radiation therapy, history of COPD, hypertension and hypertensive cardio vascular disease, hyperlipidemia, ALLERGIC rhinitis, patient was in her usual state of health until about a week ago when she went and saw Dr. Alberts in the office and she did receive a Depo-Medrol as well as a Medrol Dosepak and Zithromax, patient was on her way down on the [place] and Medrol Dosepak yesterday when she developed to have severe sore throat associated with fever and chills and significant shortness breath she took her oxymeter was around 88% on 2 L nasal cannula, daughter came and checked on her and she told her to come to the ER today because of severe shortness of breath not able to move air in and out, despite the use of nebulized treatment at home and despite oxygen support and she had failed outpatient treatment. Patient was seen in the ER and she was started on IV antibiotic in the form of Zithromax 500 mg IV piggyback every 24 hours as well as Solu-Medrol 60 mg IV push every 6 hours, nebulized treatment in the form of DuoNeb 3 mg nebulization 4 times a day and Pulmicort milligrams nebulization twice every day, patient will have a flu swab done and she would be admitted to the hospital for COPD exacerbation she will be seen in consultation by Dr. Silva. Review of Systems Constitutional: Denies anorexia, Denies chronic headaches, Denies chronic pain, Denies fever, Denies lethargy, Denies weakness, Denies weight gain Eyes: denies blurred vision, denies bulging eye, denies decreased vision, denies diplopia Ears: deny: decreased hearing Ears, nose, mouth and throat: Denies dysphagia, Denies neck lump, Denies swelling in throat, Denies sore throat Cardiovascular: Reports decreased exercise tolerance, Reports dyspnea on exertion, Reports high blood pressure, Reports shortness of breath, Denies chest pain, Denies phlebitis, Denies rapid heart beat, Denies syncope Respiratory: Reports congestion, Reports cough, Reports cough with sputum, Reports wheezing, Denies sleep apnea, Denies snoring Gastrointestinal: Reports abdominal pain, Reports nausea, Denies bloating, Denies BRBPR, Denies heartburn, Denies hematemesis, Denies melena, Denies vomiting Genitourinary: Denies dysuria, Denies hematuria Musculoskeletal: Denies myalgias Musculoskeletal: absent: ankle pain, ankle stiffness, ankle swelling, elbow pain , elbow stiffness, elbow swelling, foot pain, foot stiffness, foot swelling, hand pain, hand stiffness, hand swelling, hip pain, hip stiffness, hip swelling , knee pain, knee stiffness, knee swelling, shoulder pain, shoulder stiffness, shoulder swelling, wrist pain, wrist stiffness, wrist swelling Integumentary: Denies pruritus, Denies rash Neurological: Denies numbness, Denies weakness Psychiatric: Reports anxiety, Reports depression Endocrine: Denies fatigue, Denies weight change Past Medical History Past Medical History: Cancer, COPD, GERD/Reflux, GI Bleed, Hypertension, Pneumonia Additional Past Medical History / Comment(s): COPD, baseline FEV1 of 37% of predicted consistent with severe COPD, metastatic breast cancer, hypertension, cyclic vomiting syndrome, lymphedema of the right upper extremity related to previous breast surgery, chronic sinus disease, history of QT prolongation secondary to antibiotic use. 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 History of Any Multi-Drug Resistant Organisms: None Reported Past Surgical History: Breast Surgery, Orthopedic Surgery Additional Past Surgical History / Comment(s): Cone biopsy at age 22 years of age, multiple colonoscopies and EGDs. Thoracoscopy with minimal thoracotomy and pleural biopsy, D&C.. bilateral mastectomy and lymph nodeectomy, LT and RT THUMB TRIGGER FINGER SX, LT KNEE ARTHROSOCPY X2 , LT ACL REPAIR Past Anesthesia/Blood Transfusion Reactions: Postoperative Nausea & Vomiting ( PONV) Past Psychological History: Anxiety, Depression Smoking Status: Former smoker Past Alcohol Use History: Rare Past Drug Use History: None Reported - Past Family History Father Family Medical History: Cancer Additional Family Medical History / Comment(s): Patient reports her father of lung cancer at age 59. Brother(s) Additional Family Medical History / Comment(s): Patient has to penicillin major medical problems. Patient has 2 sisters with no major medical problems. Patient has one daughter with no major medical problems. Mother Additional Family Medical History / Comment(s): MOM IS HEALTHY AT AGE 80 Medications and Allergies Home Medications Medication Instructions Recorded Confirmed Type Budesonide-Formot 160-4.5 Mcg 2 puff INHALATION RT-BID 03/28/14 11/03/17 History [Symbicort 160-4.5 Mcg Inhaler] Anastrozole [Arimidex] 1 mg PO DAILY #30 tab 04/02/14 11/03/17 Rx Albuterol Inhaler [Ventolin Hfa 2 puff INHALATION RT-Q6H PRN 09/05/15 11/03/17 History Inhaler] Omeprazole 20 mg PO DAILY 09/05/15 11/03/17 History Venlafaxine HCl [Effexor XR] 150 mg PO DAILY 09/05/15 11/03/17 History Albuterol Nebulized [Ventolin 2.5 mg INHALATION RT-Q4H PRN 08/12/17 11/03/17 History Nebulized] Calcium Carbonate/Vitamin D3 2 tab PO DAILY 08/12/17 11/03/17 History [Calcium 600-Vit D3 400 Tablet] amLODIPine [Norvasc] 5 mg PO BID 08/12/17 11/03/17 History clonazePAM [KlonoPIN] 1 mg PO TID 08/12/17 11/03/17 History guaiFENesin [Mucinex] 600 mg PO BID 08/12/17 11/03/17 History Melatonin 6 mg PO HS PRN tablet 08/16/17 11/03/17 Rx Allergies Allergy/AdvReac Type Severity Reaction Status Date / Time levofloxacin Allergy Rash/Hives Verified 11/03/17 11:31 ondansetron HCl AdvReac Severe Increased Verified 09/13/17 15:11 [From Zofran (as QT interval hydrochloride)] prochlorperazine edisylate AdvReac Severe Increased Verified 09/13/17 15:11 [From Compazine] QT interval prochlorperazine maleate AdvReac Severe Increased Verified 09/13/17 15:11 [From Compazine] QT Interval Physical Exam Vitals: Vital Signs Temp Pulse Resp BP Pulse Ox 11/03/17 13:11 112 H 11/03/17 13:07 112 H 24 167/98 99 11/03/17 12:32 90 11/03/17 12:19 98 11/03/17 12:05 24 02/15/18 11:31 100.4 F H 11/03/17 11:28 98.3 F 105 H 26 H 146/90 86 L Intake and Output 11/03/17 11/03/17 11/03/17 06:59 14:59 22:59 Other: Weight 68.039 kg Patient Weight 11/04/17 06:59 Weight 68.039 kg - Constitutional General appearance: average body habitus, mild distress - EENT Eyes: anicteric sclerae, EOMI, PERRLA, no ptosis, no scleral icterus, normal appearance ENT: hearing grossly normal, NA/AT, normal oropharynx, pharyngeal erythema, no thrush Ears: bilateral: normal - Neck Neck: no lymphadenopathy, normal ROM, no rigidity, no stridor, no thyromegaly Carotids: bilateral: upstroke normal Thyroid: bilateral: normal size - Respiratory Respiratory: bilateral: diminished, wheezing, prolonged expiration, negative: dullness, rales, rhonchi - Cardiovascular Rhythm: regular Heart sounds: normal: S1, S2 Abnormal Heart Sounds: no systolic murmur, no S3 Gallop, no S4 Gallop, no click - Gastrointestinal General gastrointestinal: normal bowel sounds, soft, no splenomegaly, no tenderness, no umbilical hernia, no ventral hernia - Integumentary Integumentary: normal, normal turgor - Neurologic Neurologic: CNII-XII intact - Musculoskeletal Musculoskeletal: generalized weakness, strength equal bilaterally - Psychiatric Psychiatric: A&O x's 3, appropriate affect, intact judgment & insight Results CBC & Chem 7: 11/03/17 11:58 11/03/17 11:58 Labs: Abnormal Lab Results - Last 24 Hours (Table) 11/03/17 11/03/17 Range/Units 11:58 11:58 WBC 11.2 H (3.8-10.6) k/uL Hct 47.3 H (34.0-46.0) % Neutrophils # 10.0 H (1.3-7.7) k/uL Lymphocytes # 0.5 L (1.0-4.8) k/uL Chloride 93 L (98-107) mmol/L Carbon Dioxide 34 H (22-30) mmol/L Glucose 132 H (74-99) mg/dL Thrombosis Risk Factor Assmnt - DVT/VTE Prophylaxis DVT/VTE Prophylaxis: Pharmacologic Prophylaxis ordered, Mechanical Prophylaxis ordered Assessment and Plan Assessment: Assessment and plan: 1. Acute respiratory insufficiency secondary to acute exacerbation of COPD. Start the patient on Solu-Medrol 60 mg IV push every 6 hours, DuoNeb 3 ml nebulization 4 times every day, Pulmicort 1 mg nebulization twice every day, start the patient also on , start the patient on Zithromax 500 mg IV piggyback every 24 hours , pulmonary consultation from Dr. Cross, check influenza swab was positive for type A will start Tamiflu 75 mg orally bid for 5 days. 2. Breast cancer with bilateral mastectomy right for primary breast cancer left for prophylactic reasons. Has been on Arimidex 4 mg orally once every day. 3. Hypertension and hypertensive cardiovascular disease. Continue amlodipine 5 mg orally twice every day. 4. Depression. Continue Effexor XR 150 mg orally once every day. 5. Anxiety disorder. Continue Klonopin 1 mg orally three times every day. 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 7. DVT prophylaxis. Continue heparin 5000 units subcutaneously every 12 hours. 8. GI prophylaxis. Continue PPI. 9. Admit to inpatient. Estimate a length of stay 2 midnights. 10. Full code.
[2017-11-03] MEDS ORDERED: BUDESONIDE 1 MG/2 ML NEBU INHALATION STA (15:30)
[2017-11-03 15:43] LABS: Appearance,Urine Clear (Clear); Bilirubin,Urine Negative (Negative); Blood,Urine Negative (Negative); Color,Urine Yellow; Glucose,Urine (UA) Negative (Negative); Ketones,Urine 1+ (Negative); Leukocyte Esterase,Urine Negative (Negative); Nitrite,Urine Negative (Negative); Protein,Urine Trace (Negative); Specific Gravity,Urine 1.013 (1.001-1.035); Urobilinogen,Urine <2.0 mg/dL (<2.0)
[2017-11-03] MEDS ORDERED: OSELTAMIVIR 75 MG CAP PO STA (16:43)
[2017-11-03] MEDS: methylPREDNISolone SOD SUCCI 125 MG/2 ML VIAL IV SCH (19:29)
[2017-11-03] MEDS: HEPARIN SODIUM,PORCINE 5,000 UNIT/ML 1 ML VIAL SQ SCH ×2 (19:31→22:57)
[2017-11-03] MEDS ORDERED: SYMBICORT 160-4.5 MCG INHALER INHALATION SCH (20:00)
[2017-11-03] MEDS: OSELTAMIVIR 75 MG CAP PO SCH (21:07)
[2017-11-03] MEDS: guaiFENesin 600 MG TABLET.ER PO SCH (22:52)
[2017-11-03] MEDS: amLODIPine 5 MG TAB PO SCH (22:52)
[2017-11-03] MEDS: clonazePAM 1 MG TAB PO SCH ×2 (22:53)
[2017-11-03 22:54] LABS: Glucose,Whole Blood 165 mg/dL (75-99)
[2017-11-04] MEDS: methylPREDNISolone SOD SUCCI 125 MG/2 ML VIAL IV SCH ×5 (00:36→23:25)
[2017-11-04 05:57] LABS: Glucose,Whole Blood 162 mg/dL (75-99)
[2017-11-04] MEDS: PANTOPRAZOLE 40 MG TABLET PO SCH (06:20)
[2017-11-04] MEDS: INSULIN ASPART 100 UNIT/ML 1 ML 10 ML VIAL SQ SCH ×4 (06:26→21:32)
[2017-11-04] MEDS: amLODIPine 5 MG TAB PO SCH ×2 (07:47→19:51)
[2017-11-04] MEDS: CALCIUM CARB-VIT D 500MG-200UN 1 EACH TAB PO SCH (07:47)
[2017-11-04] MEDS: ANASTROZOLE 1 MG TAB PO SCH (07:48)
[2017-11-04] MEDS: VENLAFAXINE HCL ER 150 MG CAP PO SCH (07:48)
[2017-11-04] MEDS: HEPARIN SODIUM,PORCINE 5,000 UNIT/ML 1 ML VIAL SQ SCH ×3 (07:48→23:25)
[2017-11-04] MEDS: AZITHROMYCIN 500 MG TAB PO SCH (07:48)
[2017-11-04] MEDS: guaiFENesin 600 MG TABLET.ER PO SCH ×2 (07:49→19:51)
[2017-11-04] MEDS: OSELTAMIVIR 75 MG CAP PO SCH ×2 (07:49→19:51)
[2017-11-04] MEDS: clonazePAM 1 MG TAB PO SCH ×3 (07:50→23:25)
[2017-11-04] MEDS: IPRATROPIUM-ALBUTEROL 3 ML NEB INHALATION PRN ×3 (08:09→19:08)
[2017-11-04] MEDS ORDERED: NON-FORMULARY DRUG (Omeprazole [Omeprazole] 20 MG) PO SCH (09:00)
--- NOTE | 2017-11-04 11:14 | P.CNPUL ---
History of Present Illness Consult date: 11/04/17 Requesting physician: Flower Babb Reason for consult: dyspnea Chief complaint: Shortness of breath, cough, congestion History of present illness: This is a very pleasant 56-year-old female patient who follows with Dr. Alberts as her primary care physician. 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 She also has a history of severe oxygen dependent chronic obstructive pulmonary disease with a baseline FEV1 value of 37% of predicted. She follows with Dr. Mock in our office for the same. She was recently discharged in August 2017 for COPD exacerbation. She presented here to the emergency room again yesterday after being treated in the outpatient setting was steroids regarding her COPD by her PCP. She also is having complaints of chest pain. Troponins were negative. Her chest x-ray shows no evidence of acute pulmonary process. She did test positive for influenza A and was admitted for the same. T-max of 100.4. She was hypoxic at 86% O2 saturation on 2 L/m per nasal cannula. She is seen today in consultation on the selective care unit. She is awake and alert in no acute distress. She does have some pain on inhalation. She has a dry nonproductive cough. No chills or night sweats. She has some sore throat. She has been initiated on Tamiflu, IV Solu-Medrol, bronchodilators and empiric antibiotics in the form of azithromycin. Review of Systems Constitutional: Reports chronic pain, Reports fatigue, Reports weakness Eyes: denies blurred vision, denies decreased vision Ears: deny: decreased hearing Ears, nose, mouth and throat: Reports headache, Reports sore throat Cardiovascular: Reports chest pain, Reports shortness of breath Respiratory: Reports congestion, Reports cough, Reports dyspnea, Reports home oxygen, Reports pain on inspiration Gastrointestinal: Denies abdominal pain, Denies diarrhea, Denies nausea, Denies vomiting Genitourinary: Denies dysuria, Denies hematuria Musculoskeletal: Reports muscle weakness, Reports myalgias Integumentary: Denies pruritus, Denies rash Neurological: Denies numbness, Denies weakness Psychiatric: Reports anxiety, Reports depression Endocrine: Reports fatigue, Denies weight change Hematologic/Lymphatic: Reports as per HPI Allergic/Immunologic: Reports as per HPI Past Medical History Past Medical History: Cancer, COPD, GERD/Reflux, GI Bleed, Hypertension, Pneumonia Additional Past Medical History / Comment(s): COPD, -uses home 02 metastatic breast cancer, hypertension, cyclic vomiting syndrome, lymphedema of the right upper extremity related to previous breast surgery, chronic sinus disease, history of QT prolongation secondary to antibiotic use. 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 History of Any Multi-Drug Resistant Organisms: None Reported Past Surgical History: Breast Surgery, Orthopedic Surgery Additional Past Surgical History / Comment(s): Cone biopsy at age 22 years of age, multiple colonoscopies and EGDs. Thoracoscopy with minimal thoracotomy and pleural biopsy, D&C.. bilateral mastectomy and lymph nodeectomy, LT and RT THUMB TRIGGER FINGER SX, LT KNEE ARTHROSOCPY X2 , LT ACL REPAIR Past Anesthesia/Blood Transfusion Reactions: Postoperative Nausea & Vomiting ( PONV) Smoking Status: Former smoker - Past Family History Father Family Medical History: Cancer Additional Family Medical History / Comment(s): Patient reports her father of lung cancer at age 59. Brother(s) Additional Family Medical History / Comment(s): Patient has to penicillin major medical problems. Patient has 2 sisters with no major medical problems. Patient has one daughter with no major medical problems. Mother Additional Family Medical History / Comment(s): MOM IS HEALTHY AT AGE 80 Medications and Allergies Home Medications Medication Instructions Recorded Confirmed Type Budesonide-Formot 160-4.5 Mcg 2 puff INHALATION RT-BID 03/28/14 11/03/17 History [Symbicort 160-4.5 Mcg Inhaler] Anastrozole [Arimidex] 1 mg PO DAILY #30 tab 04/02/14 11/03/17 Rx Albuterol Inhaler [Ventolin Hfa 2 puff INHALATION RT-Q6H PRN 09/05/15 11/03/17 History Inhaler] Omeprazole 20 mg PO DAILY 09/05/15 11/03/17 History Venlafaxine HCl [Effexor XR] 150 mg PO DAILY 09/05/15 11/03/17 History Albuterol Nebulized [Ventolin 2.5 mg INHALATION RT-Q4H PRN 08/12/17 11/03/17 History Nebulized] Calcium Carbonate/Vitamin D3 2 tab PO DAILY 08/12/17 11/03/17 History [Calcium 600-Vit D3 400 Tablet] amLODIPine [Norvasc] 5 mg PO BID 08/12/17 11/03/17 History clonazePAM [KlonoPIN] 1 mg PO TID 08/12/17 11/03/17 History guaiFENesin [Mucinex] 600 mg PO BID 08/12/17 11/03/17 History Melatonin 6 mg PO HS PRN tablet 08/16/17 11/03/17 Rx Allergies Allergy/AdvReac Type Severity Reaction Status Date / Time levofloxacin Allergy Rash/Hives Verified 11/03/17 11:31 ondansetron HCl AdvReac Severe Increased Verified 09/13/17 15:11 [From Zofran (as QT interval hydrochloride)] prochlorperazine edisylate AdvReac Severe Increased Verified 09/13/17 15:11 [From Compazine] QT interval prochlorperazine maleate AdvReac Severe Increased Verified 09/13/17 15:11 [From Compazine] QT Interval Physical Exam Vitals: Vital Signs Temp Pulse Pulse Resp BP BP Pulse Ox 11/04/17 08:27 96 11/04/17 08:09 92 11/04/17 08:00 98.3 F 93 22 139/85 90 L 11/04/17 03:20 100 22 11/04/17 03:16 98.1 F 100 22 151/88 90 L 11/03/17 23:16 100 21 11/03/17 23:15 98.5 F 100 21 123/76 91 L 11/03/17 22:26 98.3 F 94 20 101/58 95 11/03/17 21:13 97 18 11/03/17 21:00 98 18 106/62 96 11/03/17 20:00 98.4 F 98 16 104/58 97 11/03/17 19:51 100 18 119/53 96 11/03/17 19:11 104 H 20 119/73 89 L 11/03/17 18:53 98 18 11/03/17 18:42 98 18 11/03/17 17:36 98.9 F 100 16 120/74 92 L 02/15/18 16:29 99 18 11/03/17 16:22 93 16 11/03/17 15:36 97 18 11/03/17 15:27 94 18 11/03/17 15:00 104 H 16 130/67 90 L 11/03/17 13:11 112 H 11/03/17 13:07 112 H 24 167/98 99 11/03/17 12:32 90 11/03/17 12:19 98 11/03/17 12:05 24 11/03/17 11:31 100.4 F H 11/03/17 11:28 98.3 F 105 H 26 H 146/90 86 L Intake and Output 11/03/17 11/04/17 11/04/17 22:59 06:59 14:59 Intake Total 800 Balance 800 Intake: Intake, IV Titration 800 Amount Sodium Chloride 0.9% 1, 800 000 ml @ 100 mls/hr IV . Q10H STA Rx#:[id number] Other: Voiding Method Toilet Toilet # Voids 2 Weight 52.7 kg GENERAL EXAM: Anxious, laughing, crying. Alert, comfortable in no apparent distress. HEAD: Normocephalic. EYES: Normal reaction of pupils, equal size. NOSE: Clear with pink turbinates. THROAT: No erythema or exudates. NECK: No masses, no JVD. CHEST: No chest wall deformity. LUNGS: Equal air entry with bilateral end expiratory wheeze. Diminished.. CVS: S1 and S2 normal with no audible murmur, regular rhythm. ABDOMEN: No hepatosplenomegaly, normal bowel sounds, no guarding or rigidity. SPINE: No scoliosis or deformity SKIN: No rashes CENTRAL NERVOUS SYSTEM: No focal deficits, tone is normal in all 4 extremities. EXTREMITIES: There is no peripheral edema. No clubbing, no cyanosis. Peripheral pulses are intact. Results - Laboratory Findings CBC and BMP: 11/03/17 11:58 11/03/17 11:58 PT/INR, D-dimer PT 9.8 sec (9.0-12.0) 11/03/17 11:58 INR 1.0 (<1.2) 11/03/17 11:58 D-Dimer 0.31 mg/L FEU (<0.60) 02/15/18 11:58 Abnormal lab findings: Abnormal Labs 11/03/17 11/03/17 11/03/17 11:58 11:58 15:17 WBC 11.2 H Hct 47.3 H Neutrophils # 10.0 H Lymphocytes # 0.5 L Chloride 93 L Carbon Dioxide 34 H Glucose 132 H POC Glucose (mg/dL) Urine Protein Urine Ketones Influenza Type A RNA Detected H 11/03/17 11/03/17 11/04/17 15:27 22:52 05:52 WBC Hct Neutrophils # Lymphocytes # Chloride Carbon Dioxide Glucose POC Glucose (mg/dL) 165 H 162 H Urine Protein Trace H Urine Ketones 1+ H Influenza Type A RNA - Diagnostic Findings Chest x-ray: image reviewed (No acute pulmonary process) Assessment and Plan Assessment: Impression: #1 Acute exacerbation of chronic obstructive pulmonary disease, oxygen dependent , FEV1 value of 37% of predicted, complicated by influenza A infection. #2 Acute on chronic hypoxic respiratory failure secondary to above. #3 History of chronic tobacco dependence. #4 History of metastatic breast cancer status post bilateral mastectomy. Remains on Arimidex. #5 Hypertension. Remains on amlodipine. #6 Anxiety/depression. Remains on Effexor. #7 History of Alysha syndrome. Plan: The patient was seen and evaluated by Dr. Silva. Her chest x-ray and labs were reviewed. We'll continue with her current treatment including IV Solu- Medrol, bronchodilators, Tamiflu, empiric antibiotics in the form of azithromycin. She is on heparin for DVT prophylaxis. Protonix for GI prophylaxis. We will continue to follow and make further recommendations based on her clinical status. I, the cosigning physician, performed a history & physical examination of the patient. Lungs sounds with faint end expiratory wheeze. Diminished.. Maintaining good O2 saturations in the 90s on 3 L/m per nasal cannula.. I discussed the assessment and plan of care with my nurse practitioner, Dagmar Mixon. I attest to the above note as dictated by her. Time with Patient: Greater than 30
--- NOTE | 2017-11-04 11:54 | P.CRDCN ---
History of Present Illness Consult date: 11/04/17 Requesting physician: Flower Babb Reason for Consult (text): chest pain with multiple risk factors Chief complaint: shortness of breath History of present illness: This is a pleasant 56-year-old female patient who presented to the emergency department with complaints of shortness of breath and pain with deep breathing. She has history of COPD, breast cancer for which she received chemoradiation 17 years ago, with apparent metastasis to the pleura 3 years ago. Also has a history of hypertension, GI bleed and prolonged QT with Levaquin, Zofran and Compazine. She has no history of hyperlipidemia, diabetes or family history significant for coronary artery disease. Patient had been following with her primary care physician and had been taking prednisone without relief. Upon presentation to the emergency department chest x-ray showed no acute disease. He has tested positive for influenza a and has been started on Tamiflu. She is also been started on Zithromax and Solu-Medrol. EKG shows sinus rhythm. Upon examination, patient continues to complain of shortness of breath. Her chest discomfort with breathing has resolved. Past Medical History Past Medical History: Cancer, COPD, GERD/Reflux, GI Bleed, Hypertension, Pneumonia Additional Past Medical History / Comment(s): COPD, -uses home 02 metastatic breast cancer, hypertension, cyclic vomiting syndrome, lymphedema of the right upper extremity related to previous breast surgery, chronic sinus disease, history of QT prolongation secondary to antibiotic use. 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 History of Any Multi-Drug Resistant Organisms: None Reported Past Surgical History: Breast Surgery, Orthopedic Surgery Additional Past Surgical History / Comment(s): Cone biopsy at age 22 years of age, multiple colonoscopies and EGDs. Thoracoscopy with minimal thoracotomy and pleural biopsy, D&C.. bilateral mastectomy and lymph nodeectomy, LT and RT THUMB TRIGGER FINGER SX, LT KNEE ARTHROSOCPY X2 , LT ACL REPAIR Past Anesthesia/Blood Transfusion Reactions: Postoperative Nausea & Vomiting ( PONV) Smoking Status: Former smoker - Past Family History Father Family Medical History: Cancer Additional Family Medical History / Comment(s): Patient reports her father of lung cancer at age 59. Brother(s) Additional Family Medical History / Comment(s): Patient has to penicillin major medical problems. Patient has 2 sisters with no major medical problems. Patient has one daughter with no major medical problems. Mother Additional Family Medical History / Comment(s): MOM IS HEALTHY AT AGE 80 Medications and Allergies Home Medications Medication Instructions Recorded Confirmed Type Budesonide-Formot 160-4.5 Mcg 2 puff INHALATION RT-BID 03/28/14 11/03/17 History [Symbicort 160-4.5 Mcg Inhaler] Anastrozole [Arimidex] 1 mg PO DAILY #30 tab 04/02/14 11/03/17 Rx Albuterol Inhaler [Ventolin Hfa 2 puff INHALATION RT-Q6H PRN 09/05/15 11/03/17 History Inhaler] Omeprazole 20 mg PO DAILY 09/05/15 11/03/17 History Venlafaxine HCl [Effexor XR] 150 mg PO DAILY 09/05/15 11/03/17 History Albuterol Nebulized [Ventolin 2.5 mg INHALATION RT-Q4H PRN 08/12/17 11/03/17 History Nebulized] Calcium Carbonate/Vitamin D3 2 tab PO DAILY 08/12/17 11/03/17 History [Calcium 600-Vit D3 400 Tablet] amLODIPine [Norvasc] 5 mg PO BID 08/12/17 11/03/17 History clonazePAM [KlonoPIN] 1 mg PO TID 08/12/17 11/03/17 History guaiFENesin [Mucinex] 600 mg PO BID 08/12/17 11/03/17 History Melatonin 6 mg PO HS PRN tablet 08/16/17 11/03/17 Rx Allergies Allergy/AdvReac Type Severity Reaction Status Date / Time levofloxacin Allergy Rash/Hives Verified 11/03/17 11:31 ondansetron HCl AdvReac Severe Increased Verified 09/13/17 15:11 [From Zofran (as QT interval hydrochloride)] prochlorperazine edisylate AdvReac Severe Increased Verified 09/13/17 15:11 [From Compazine] QT interval prochlorperazine maleate AdvReac Severe Increased Verified 09/13/17 15:11 [From Compazine] QT Interval Physical Exam Vitals: Vital Signs Temp Pulse Pulse Resp BP BP Pulse Ox 11/04/17 08:27 96 11/04/17 08:09 92 11/04/17 03:20 100 22 11/04/17 03:16 98.1 F 100 22 151/88 90 L 11/03/17 23:16 100 21 11/03/17 23:15 98.5 F 100 21 123/76 91 L 11/03/17 22:26 98.3 F 94 20 101/58 95 11/03/17 21:13 97 18 11/03/17 21:00 98 18 106/62 96 11/03/17 20:00 98.4 F 98 16 104/58 97 11/03/17 19:51 100 18 119/53 96 11/03/17 19:11 104 H 20 119/73 89 L 11/03/17 18:53 98 18 11/03/17 18:42 98 18 11/03/17 17:36 98.9 F 100 16 120/74 92 L 11/03/17 16:29 99 18 11/03/17 16:22 93 16 11/03/17 15:36 97 18 11/03/17 15:27 94 18 11/03/17 15:00 104 H 16 130/67 90 L 11/03/17 13:11 112 H 11/03/17 13:07 112 H 24 167/98 99 11/03/17 12:32 90 11/03/17 12:19 98 11/03/17 12:05 24 11/03/17 11:31 100.4 F H 11/03/17 11:28 98.3 F 105 H 26 H 146/90 86 L Intake and Output 11/03/17 11/04/17 11/04/17 22:59 06:59 14:59 Intake Total 800 Balance 800 Intake: Intake, IV Titration 800 Amount Sodium Chloride 0.9% 1, 800 000 ml @ 100 mls/hr IV . Q10H STA Rx#:[id number] Other: Voiding Method Toilet # Voids 2 Weight 52.7 kg PHYSICAL EXAMINATION: HEENT: Head is atraumatic, normocephalic. Pupils equal, round. Neck is supple. There is no elevated jugular venous pressure. HEART EXAMINATION: Heart sounds regular, S1 and S2 normal. No murmur or gallop heard. CHEST EXAMINATION: Lungs reveal diminished air entry bilaterally with expiratory wheezing throughout. No chest wall tenderness is noted on palpation or with deep breathing. Patient is tachypneic and dyspneic ABDOMEN: Soft, nontender. Bowel sounds are heard. No organomegaly noted. EXTREMITIES: 2+ peripheral pulses with no evidence of peripheral edema and no calf tenderness noted. NEUROLOGIC patient is awake, alert and oriented x3. . Results 11/03/17 11:58 11/03/17 11:58 Cardiac Enzymes 11/03/17 11/03/17 Range/Units 11:58 11:58 AST 25 (14-36) U/L CK-MB (CK-2) 0.8 (0.0-2.4) ng/mL Troponin I <0.012 (0.000-0.034) ng/mL Coagulation 11/03/17 Range/Units 11:58 PT 9.8 (9.0-12.0) sec APTT 24.7 (22.0-30.0) sec CBC 11/03/17 Range/Units 11:58 WBC 11.2 H (3.8-10.6) k/uL RBC 4.96 (3.80-5.40) m/uL Hgb 14.7 (11.4-16.0) gm/dL Hct 47.3 H (34.0-46.0) % Plt Count 383 (150-450) k/uL Comprehensive Metabolic Panel 11/03/17 Range/Units 11:58 Sodium 137 (137-145) mmol/L Potassium 3.6 (3.5-5.1) mmol/L Chloride 93 L (98-107) mmol/L Carbon Dioxide 34 H (22-30) mmol/L BUN 10 (7-17) mg/dL Creatinine 0.58 (0.52-1.04) mg/dL Glucose 132 H (74-99) mg/dL Calcium 9.3 (8.4-10.2) mg/dL AST 25 (14-36) U/L ALT 25 (9-52) U/L Alkaline Phosphatase 84 (38-126) U/L Total Protein 7.6 (6.3-8.2) g/dL Albumin 4.4 (3.5-5.0) g/dL Current Medications Generic Name Dose Route Start Last Admin Trade Name Freq PRN Reason Stop Dose Admin Albuterol/Ipratropium 3 ml 11/03/17 14:03 11/04/17 08:09 Duoneb 0.5 Mg-3 Mg/3 Ml Soln INHALATION 3 ml RT-Q4H PRN Administration Shortness Of Breath Or Wheezing Amlodipine Besylate 5 mg 11/03/17 21:00 11/04/17 07:47 Norvasc PO 5 mg BID SUNDEEP Administration Anastrozole 1 mg 11/04/17 09:00 11/04/17 07:48 Arimidex PO 1 mg DAILY SUNDEEP Administration Azithromycin 500 mg 11/04/17 09:00 11/04/17 07:48 Zithromax PO 500 mg DAILY SUNDEEP Administration Calcium Carbonate 2 each 11/04/17 12:00 11/04/17 07:47 Oscal 500+D PO 2 each DAILY@1200 SUNDEEP Administration Clonazepam 1 mg 11/03/17 17:00 11/04/17 07:50 Klonopin PO 1 mg TID SUNDEEP Administration Guaifenesin 600 mg 11/03/17 21:00 11/04/17 07:49 Mucinex PO 600 mg BID SUNDEEP Administration Heparin Sodium (Porcine) 5,000 unit 11/03/17 17:00 11/04/17 07:48 Heparin SQ 5,000 unit Q8HR SUNDEEP Administration Insulin Aspart 0 unit 11/04/17 07:30 11/04/17 06:26 Novolog SQ 3 unit ACHS SUNDEEP Administration Protocol Melatonin 6 mg 11/03/17 14:16 Melatonin PO HS PRN Insomnia Methylprednisolone Sodium Succinate 60 mg 11/03/17 18:00 11/04/17 06:20 Solu-Medrol IV 60 mg Q6HR SUNDEEP Administration Oseltamivir Phosphate 75 mg 11/03/17 21:00 11/04/17 07:49 Tamiflu PO 11/08/17 09:01 75 mg Q12HR SUNDEEP Administration Pantoprazole Sodium 40 mg 11/04/17 07:30 11/04/17 06:20 Protonix PO 40 mg [id number]-[id number] SUNDEEP Administration Venlafaxine HCl 150 mg 11/04/17 09:00 11/04/17 07:48 Effexor Xr PO 150 mg DAILY SUNDEEP Administration Intake and Output 11/03/17 11/04/17 11/04/17 22:59 06:59 14:59 Intake Total 800 Balance 800 Intake: Intake, IV Titration 800 Amount Sodium Chloride 0.9% 1, 800 000 ml @ 100 mls/hr IV . Q10H STA Rx#:[id number] Other: Voiding Method Toilet # Voids 2 Weight 52.7 kg 11/03/17 11:58 11/03/17 11:58 EKG Interpretations (text) Sinus rhythm with nonspecific ST-T wave abnormalities Assessment and Plan Assessment: #1 influenza A #2 COPD #3 hypertension #4 atypical chest pain, pain only with breathing, resolved Plan: From cardiology's perspective, due to patient's drug-induced prolonged QT interval we recommend avoiding Zithromax. Will repeat EKG in the morning. Chest pain is likely secondary to pulmonary cause. We will follow the troponins and provide further recommendations accordingly. RECORDIST CHIEF note has been reviewed, I agree with a documented findings and plan of care. Patient was seen and examined.
[2017-11-04 12:02] LABS: Glucose,Whole Blood 126 mg/dL (75-99)
[2017-11-04] MEDS: MORPHINE SULFATE 4 MG/ML SYRINGE IVP PRN ×2 (12:28→19:51)
--- NOTE | 2017-11-04 15:07 | P.PN ---
Subjective Progress Note Date: 11/04/17 This is a 56-year-old female one of Dr. Alberts with a previous medical history significant for breast cancer with metastatic disease to the regular status post radiation therapy, history of COPD, hypertension and hypertensive cardio vascular disease, hyperlipidemia, ALLERGIC rhinitis, patient was in her usual state of health until about a week ago when she went and saw Dr. Alberts in the office and she did receive a Depo-Medrol as well as a Medrol Dosepak and Zithromax, patient was on her way down on the [place] and Medrol Dosepak yesterday when she developed to have severe sore throat associated with fever and chills and significant shortness breath she took her oxymeter was around 88% on 2 L nasal cannula, daughter came and checked on her and she told her to come to the ER today because of severe shortness of breath not able to move air in and out, despite the use of nebulized treatment at home and despite oxygen support and she had failed outpatient treatment. Patient was seen in the ER and she was started on IV antibiotic in the form of Zithromax 500 mg IV piggyback every 24 hours as well as Solu-Medrol 60 mg IV push every 6 hours, nebulized treatment in the form of DuoNeb 3 mg nebulization 4 times a day and Pulmicort milligrams nebulization twice every day, patient will have a flu swab done and she would be admitted to the hospital for COPD exacerbation she will be seen in consultation by Dr. Silva. 11/04: Today is feeling a bit tight, she isn't droplet isolation due to her influenza A, she was seen in consultation by pulmonary as well as cardiology, her blood culture showed gram-positive cocci in cluster, we will maintain the patient current antibiotic until the final identity of the organism. Objective - Vital Signs Vital signs: Vital Signs Temp 98.3 F 11/04/17 08:00 Pulse 96 11/04/17 08:27 Resp 22 11/04/17 08:00 BP 139/85 11/04/17 08:00 Pulse Ox 90 L 11/04/17 08:00 Intake & Output 11/03/17 11/04/17 11/04/17 18:59 06:59 18:59 Intake Total 800 Balance 800 Weight 68.039 kg 52.7 kg Intake: Intake, IV Titration 800 Amount Sodium Chloride 0.9% 1, 800 000 ml @ 100 mls/hr IV . Q10H STA Rx#:[id number] Other: Voiding Method Toilet # Voids 2 - Exam - Constitutional General appearance: average body habitus, mild distress - EENT Eyes: anicteric sclerae, EOMI, PERRLA, no ptosis, no scleral icterus, normal appearance ENT: hearing grossly normal, NA/AT, normal oropharynx, pharyngeal erythema, no thrush Ears: bilateral: normal - Neck Neck: no lymphadenopathy, normal ROM, no rigidity, no stridor, no thyromegaly Carotids: bilateral: upstroke normal Thyroid: bilateral: normal size - Respiratory Respiratory: bilateral: diminished, wheezing, prolonged expiration, negative: dullness, rales, rhonchi - Cardiovascular Rhythm: regular Heart sounds: normal: S1, S2 Abnormal Heart Sounds: no systolic murmur, no S3 Gallop, no S4 Gallop, no click - Gastrointestinal General gastrointestinal: normal bowel sounds, soft, no splenomegaly, no tenderness, no umbilical hernia, no ventral hernia - Integumentary Integumentary: normal, normal turgor - Neurologic Neurologic: CNII-XII intact - Musculoskeletal Musculoskeletal: generalized weakness, strength equal bilaterally - Psychiatric Psychiatric: A&O x's 3, appropriate affect, intact judgment & insight - Labs CBC & Chem 7: 11/03/17 11:58 11/03/17 11:58 Labs: Abnormal Lab Results - Last 24 Hours (Table) 11/03/17 11/03/17 11/03/17 Range/Units 11:58 11:58 15:17 WBC 11.2 H (3.8-10.6) k/uL Hct 47.3 H (34.0-46.0) % Neutrophils # 10.0 H (1.3-7.7) k/uL Lymphocytes # 0.5 L (1.0-4.8) k/uL Chloride 93 L (98-107) mmol/L Carbon Dioxide 34 H (22-30) mmol/L Glucose 132 H (74-99) mg/dL POC Glucose (mg/dL) (75-99) mg/dL Urine Protein (Negative) Urine Ketones (Negative) Influenza Type A RNA Detected H (Not Detectd) 0211/03/17 11/04/17 Range/Units 15:27 22:52 05:52 WBC (3.8-10.6) k/uL Hct (34.0-46.0) % Neutrophils # (1.3-7.7) k/uL Lymphocytes # (1.0-4.8) k/uL Chloride (98-107) mmol/L Carbon Dioxide (22-30) mmol/L Glucose (74-99) mg/dL POC Glucose (mg/dL) 165 H 162 H (75-99) mg/dL Urine Protein Trace H (Negative) Urine Ketones 1+ H (Negative) Influenza Type A RNA (Not Detectd) Assessment and Plan Assessment: Assessment and plan: 1. Acute respiratory insufficiency secondary to acute exacerbation of COPD. Start the patient on Solu-Medrol 60 mg IV push every 6 hours, DuoNeb 3 ml nebulization 4 times every day, Pulmicort 1 mg nebulization twice every day, start the patient also on , start the patient on Zithromax 500 mg IV piggyback every 24 hours , pulmonary consult appreciated so is cardiology consult, continue patient on Tamiflu 75 mg orally twice every day. 2. Breast cancer with bilateral mastectomy right for primary breast cancer left for prophylactic reasons. Has been on Arimidex 4 mg orally once every day. 3. Hypertension and hypertensive cardiovascular disease. Continue amlodipine 5 mg orally twice every day. 4. Depression. Continue Effexor XR 150 mg orally once every day. 5. Anxiety disorder. Continue Klonopin 1 mg orally three times every day. 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 7. DVT prophylaxis. Continue heparin 5000 units subcutaneously every 12 hours. 8. GI prophylaxis. Continue PPI. 9. Gram-positive cocci bacteremia thought to be due to contamination.
[2017-11-04 17:19] LABS: Glucose,Whole Blood 170 mg/dL (75-99)
[2017-11-04 21:01] LABS: Glucose,Whole Blood 154 mg/dL (75-99)
[2017-11-05] MEDS: MORPHINE SULFATE 4 MG/ML SYRINGE IVP PRN ×2 (00:54→14:19)
[2017-11-05] MEDS: PANTOPRAZOLE 40 MG TABLET PO SCH (06:14)
[2017-11-05] MEDS: methylPREDNISolone SOD SUCCI 125 MG/2 ML VIAL IV SCH ×3 (06:14→18:29)
[2017-11-05] MEDS: INSULIN ASPART 100 UNIT/ML 1 ML 10 ML VIAL SQ SCH ×4 (06:29→23:00)
[2017-11-05 06:32] LABS: Glucose,Whole Blood 163 mg/dL (75-99)
[2017-11-05 06:55] LABS: Basophils % (A) 0 %; Eosinophils % (A) 0 %; HCT 40.6 % (34.0-46.0); HGB 12.5 gm/dL (11.4-16.0); Lymphocytes # (A) 0.4 k/uL (1.0-4.8); Lymphocytes % (A) 3 %; MCH 29.5 pg (25.0-35.0); MCHC 30.7 g/dL (31.0-37.0); MCV 95.9 fL (80.0-100.0); Mean Platelet Volume 6.1; Monocytes # (A) 0.3 k/uL (0-1.0); Monocytes % (A) 3 %; Neutrophils # (A) 12.7 k/uL (1.3-7.7); Neutrophils % (A) 94 %; Platelet Count 357 k/uL (150-450); RBC 4.23 m/uL (3.80-5.40); RDW 13.8 % (11.5-15.5); WBC 13.5 k/uL (3.8-10.6)
[2017-11-05 07:19] LABS: ALT 41 U/L (9-52); AST 40 U/L (14-36); Albumin 3.5 g/dL (3.5-5.0); Alkaline Phosphatase 66 U/L (38-126); Blood Urea Nitrogen 15 mg/dL (7-17); Calcium 9.1 mg/dL (8.4-10.2); Chloride 94 mmol/L (98-107); Glucose 163 mg/dL (74-99); Potassium 4.5 mmol/L (3.5-5.1); Sodium 138 mmol/L (137-145); Total Bilirubin 0.3 mg/dL (0.2-1.3); Total Protein 5.9 g/dL (6.3-8.2)
[2017-11-05 07:33] LABS: Anion Gap 6 mmol/L; Carbon Dioxide 38 mmol/L (22-30)
[2017-11-05] MEDS: CALCIUM CARB-VIT D 500MG-200UN 1 EACH TAB PO SCH (09:03)
[2017-11-05] MEDS: clonazePAM 1 MG TAB PO SCH ×3 (09:03→23:01)
[2017-11-05] MEDS: amLODIPine 5 MG TAB PO SCH ×2 (09:04→19:24)
[2017-11-05] MEDS: HEPARIN SODIUM,PORCINE 5,000 UNIT/ML 1 ML VIAL SQ SCH ×2 (09:04→18:29)
[2017-11-05] MEDS: AZITHROMYCIN 500 MG TAB PO SCH (09:04)
[2017-11-05] MEDS: ANASTROZOLE 1 MG TAB PO SCH (09:04)
[2017-11-05] MEDS: VENLAFAXINE HCL ER 150 MG CAP PO SCH (09:05)
[2017-11-05] MEDS: OSELTAMIVIR 75 MG CAP PO SCH ×2 (09:05→19:25)
[2017-11-05] MEDS: guaiFENesin 600 MG TABLET.ER PO SCH ×2 (09:05→19:24)
[2017-11-05] MEDS: IPRATROPIUM-ALBUTEROL 3 ML NEB INHALATION PRN ×3 (09:13→21:26)
--- NOTE | 2017-11-05 10:24 | P.PN ---
Subjective Progress Note Date: 11/05/17 Principal diagnosis: COPD with exacerbation Patient continued to require 5 L of oxygen at the time she uses 2 L at home patient still short of breath with conversation was not able to go to the bathroom due to shortness of breath and the orbital bedside commode for her. Patient is denying chest pain, nausea, vomiting, dumping, dizziness, lightheadedness or blurry vision. Objective - Vital Signs Vital signs: Vital Signs Temp 97.1 F L 11/05/17 08:00 Pulse 100 11/05/17 09:47 Resp 20 11/05/17 08:00 BP 140/85 11/05/17 08:00 Pulse Ox 93 L 11/05/17 08:00 Intake & Output 11/04/17 11/05/17 11/05/17 18:59 06:59 18:59 Intake Total 810 600 Balance 810 600 Weight 53 kg Intake: Intake, IV Titration 400 Amount Sodium Chloride 0.9% 1, 400 000 ml @ 100 mls/hr IV . Q10H STA Rx#:[id number] Oral 410 600 Other: Voiding Method Toilet Toilet Toilet # Voids 1 1 - Exam Gen. and her stated age in mild distress Heart: Normal S1-S2 Lungs: Decreased air entry bilaterally with fine end expiratory wheezing Abdomen: Soft no tenderness plus pulses hospital for quadrant Lower extremity no edema Skin no rash Psych alert and oriented 4 - Labs CBC & Chem 7: 11/05/17 06:14 11/05/17 06:14 Labs: Abnormal Lab Results - Last 24 Hours (Table) 11/04/17 11/04/17 11/04/17 Range/Units 11:46 17:15 21:00 WBC (3.8-10.6) k/uL MCHC (31.0-37.0) g/dL Neutrophils # (1.3-7.7) k/uL Lymphocytes # (1.0-4.8) k/uL Chloride (98-107) mmol/L Carbon Dioxide (22-30) mmol/L Creatinine (0.52-1.04) mg/dL Glucose (74-99) mg/dL POC Glucose (mg/dL) 126 H 170 H 154 H (75-99) mg/dL AST (14-36) U/L Total Protein (6.3-8.2) g/dL 11/05/17 11/05/17 11/05/17 Range/Units 06:14 06:14 06:18 WBC 13.5 H (3.8-10.6) k/uL MCHC 30.7 L (31.0-37.0) g/dL Neutrophils # 12.7 H (1.3-7.7) k/uL Lymphocytes # 0.4 L (1.0-4.8) k/uL Chloride 94 L (98-107) mmol/L Carbon Dioxide 38 H (22-30) mmol/L Creatinine 0.48 L (0.52-1.04) mg/dL Glucose 163 H (74-99) mg/dL POC Glucose (mg/dL) 163 H (75-99) mg/dL AST 40 H (14-36) U/L Total Protein 5.9 L (6.3-8.2) g/dL Microbiology - Last 24 Hours (Table) 11/03/17 11:58 Blood Culture Gram Stain - Preliminary Blood Blood Culture - Preliminary Coagulase Negative Staph 11/03/17 11:58 Blood Culture - Final Blood Assessment and Plan Assessment: 1. Acute respiratory failure on chronic respiratory failure with hypoxia. 2. COPD with acute exacerbation. 3. Influenza. 4. History of breast cancer with bilateral mastectomy. 5. Hypertension. 6. Debility and deconditioning. 7. Anxiety and depression. 8. Gram-positive cocci bacteremia thought to be contamination Plan: I would like to continue IV steroids wean off as tolerated patient still requiring 5 L oxygen which is increased from her prior home setting where she uses 2 L of oxygen. Patient still smokes at home but stated on the minimum patient counseled regarding smoking cessation plan discussed with Dr. Lopez from pulmonary who is agreeable to wean off slowly steroids and I would like to have physical and a compression onset of the recommendation prior to discharge with continue have home regimen monitor her vital signs closely and repeat blood work in the morning.
[2017-11-05 12:34] LABS: Glucose,Whole Blood 160 mg/dL (75-99)
--- NOTE | 2017-11-05 12:42 | P.PN ---
Subjective Progress Note Date: 11/05/17 Principal diagnosis: Acute exacerbation of chronic obstructive pulmonary disease complicated by influenza a infection. This is a very pleasant 56-year-old female patient who follows with Dr. Alberts as her primary care physician. 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 She also has a history of severe oxygen dependent chronic obstructive pulmonary disease with a baseline FEV1 value of 37% of predicted. She follows with Dr. Mock in our office for the same. She was recently discharged in August 2017 for COPD exacerbation. She presented here to the emergency room again yesterday after being treated in the outpatient setting was steroids regarding her COPD by her PCP. She also is having complaints of chest pain. Troponins were negative. Her chest x-ray shows no evidence of acute pulmonary process. She did test positive for influenza A and was admitted for the same. T-max of 100.4. She was hypoxic at 86% O2 saturation on 2 L/m per nasal cannula. She is seen today in consultation on the selective care unit. She is awake and alert in no acute distress. She does have some pain on inhalation. She has a dry nonproductive cough. No chills or night sweats. She has some sore throat. She has been initiated on Tamiflu, IV Solu-Medrol, bronchodilators and empiric antibiotics in the form of azithromycin. The patient is seen again today 11/05/2017 in follow-up in the selective care unit. She is awake and alert in no acute distress. She is still having some swings in mood's between crying and laughing. She states she is breathing slightly better today as compared to yesterday but far from her baseline. She is dyspneic with minimal exertion. She continues with a dry nonproductive cough. No chills or night sweats. She remains afebrile. She is maintaining good O2 saturations in the 90s on 5 L/m per nasal cannula. White count 13.5. Hemoglobin 12.5. Creatinine 0.48. Objective - Vital Signs Vital signs: Vital Signs Temp 97.0 F L 11/05/17 12:00 Pulse 100 11/05/17 12:19 Resp 20 11/05/17 12:00 BP 133/84 11/05/17 12:00 Pulse Ox 93 L 11/05/17 12:00 Intake & Output 11/04/17 11/05/17 11/05/17 18:59 06:59 18:59 Intake Total 810 600 Balance 810 600 Weight 53 kg Intake: Intake, IV Titration 400 Amount Sodium Chloride 0.9% 1, 400 000 ml @ 100 mls/hr IV . Q10H STA Rx#:[id number] Oral 410 600 Other: Voiding Method Toilet Toilet Toilet # Voids 1 1 - Exam GENERAL EXAM: Frail, cachectic. Mood swings. HEAD: Normocephalic. EYES: Normal reaction of pupils, equal size. NOSE: Clear with pink turbinates. THROAT: No erythema or exudates. NECK: No masses, no JVD. CHEST: No chest wall deformity. LUNGS: Equal air entry with bilateral end expiratory wheeze. Diminished.. CVS: S1 and S2 normal with no audible murmur, regular rhythm. ABDOMEN: No hepatosplenomegaly, normal bowel sounds, no guarding or rigidity. SPINE: No scoliosis or deformity SKIN: No rashes CENTRAL NERVOUS SYSTEM: No focal deficits, tone is normal in all 4 extremities. EXTREMITIES: There is no peripheral edema. No clubbing, no cyanosis. Peripheral pulses are intact. - Labs CBC & Chem 7: 11/05/17 06:14 11/05/17 06:14 Labs: Abnormal Lab Results - Last 24 Hours (Table) 11/04/17 11/04/17 11/05/17 Range/Units 17:15 21:00 06:14 WBC 13.5 H (3.8-10.6) k/uL MCHC 30.7 L (31.0-37.0) g/dL Neutrophils # 12.7 H (1.3-7.7) k/uL Lymphocytes # 0.4 L (1.0-4.8) k/uL Chloride (98-107) mmol/L Carbon Dioxide (22-30) mmol/L Creatinine (0.52-1.04) mg/dL Glucose (74-99) mg/dL POC Glucose (mg/dL) 170 H 154 H (75-99) mg/dL AST (14-36) U/L Total Protein (6.3-8.2) g/dL 11/05/17 11/05/17 11/05/17 Range/Units 06:14 06:18 12:10 WBC (3.8-10.6) k/uL MCHC (31.0-37.0) g/dL Neutrophils # (1.3-7.7) k/uL Lymphocytes # (1.0-4.8) k/uL Chloride 94 L (98-107) mmol/L Carbon Dioxide 38 H (22-30) mmol/L Creatinine 0.48 L (0.52-1.04) mg/dL Glucose 163 H (74-99) mg/dL POC Glucose (mg/dL) 163 H 160 H (75-99) mg/dL AST 40 H (14-36) U/L Total Protein 5.9 L (6.3-8.2) g/dL Microbiology - Last 24 Hours (Table) 11/03/17 11:58 Blood Culture Gram Stain - Preliminary Blood Blood Culture - Preliminary Coagulase Negative Staph 11/03/17 11:58 Blood Culture - Final Blood Assessment and Plan Assessment: Impression: #1 Acute exacerbation of chronic obstructive pulmonary disease, oxygen dependent , FEV1 value of 37% of predicted, complicated by influenza A infection. #2 Acute on chronic hypoxic respiratory failure secondary to above. #3 History of chronic tobacco dependence. #4 History of metastatic breast cancer status post bilateral mastectomy. Remains on Arimidex. #5 Hypertension. Remains on amlodipine. #6 Anxiety/depression. Remains on Effexor. #7 History of Alysha syndrome. Plan: The patient was seen and evaluated by Dr. Silva. We'll continue with her current treatment including IV Solu-Medrol, bronchodilators, Tamiflu, empiric antibiotics in the form of azithromycin. She is on heparin for DVT prophylaxis. Protonix for GI prophylaxis. We will increase her activity as tolerated. We will continue to follow and make further recommendations based on her clinical status. I, the cosigning physician, performed a history & physical examination of the patient. Lungs sounds with faint end expiratory wheeze. Diminished.. Maintaining good O2 saturations in the 90s on 5 L/m per nasal cannula.. I discussed the assessment and plan of care with my nurse practitioner, Dagmar Mixon. I attest to the above note as dictated by her.
--- NOTE | 2017-11-05 13:03 | P.PN ---
Subjective Progress Note Date: 11/05/17 This is a pleasant 56-year-old female patient who presented to the emergency department with complaints of shortness of breath and pain with deep breathing. She has history of COPD, breast cancer for which she received chemoradiation 17 years ago, with apparent metastasis to the pleura 3 years ago. Also has a history of hypertension, GI bleed and prolonged QT with Levaquin, Zofran and Compazine. She has no history of hyperlipidemia, diabetes or family history significant for coronary artery disease. Patient had been following with her primary care physician and had been taking prednisone without relief. Upon presentation to the emergency department chest x-ray showed no acute disease. She has tested positive for influenza a and has been started on Tamiflu. patient was also initiated on Zithromax and Solu-Medrol. She was seen in consultation yesterday by Dr. Kelly who recommended discontinuing the Zithromax because of Q-T prolongation. A repeat EKG was performed this morning which did show some improvement in QT prolongation however we do recommend to discontinue the antibiotic. Objective - Vital Signs Vital signs: Vital Signs Temp 97.0 F L 11/05/17 12:00 Pulse 100 11/05/17 12:19 Resp 20 11/05/17 12:00 BP 133/84 11/05/17 12:00 Pulse Ox 93 L 11/05/17 12:00 Intake & Output 11/04/17 11/05/17 11/05/17 18:59 06:59 18:59 Intake Total 810 600 Balance 810 600 Weight 53 kg Intake: Intake, IV Titration 400 Amount Sodium Chloride 0.9% 1, 400 000 ml @ 100 mls/hr IV . Q10H STA Rx#:[id number] Oral 410 600 Other: Voiding Method Toilet Toilet Toilet # Voids 1 1 - Exam PHYSICAL EXAMINATION: HEENT: Head is atraumatic, normocephalic. Pupils equal, round. Neck is supple. There is no elevated jugular venous pressure. HEART EXAMINATION: Heart sounds regular, S1 and S2 normal. No murmur or gallop heard. CHEST EXAMINATION: Lungs reveal diminished air entry bilaterally with expiratory wheezing throughout. No chest wall tenderness is noted on palpation or with deep breathing. Patient is tachypneic and dyspneic ABDOMEN: Soft, nontender. Bowel sounds are heard. No organomegaly noted. EXTREMITIES: 2+ peripheral pulses with no evidence of peripheral edema and no calf tenderness noted. NEUROLOGIC patient is awake, alert and oriented x3. . - Labs CBC & Chem 7: 11/05/17 06:14 11/05/17 06:14 Labs: Abnormal Lab Results - Last 24 Hours (Table) 11/04/17 11/04/17 11/05/17 Range/Units 17:15 21:00 06:14 WBC 13.5 H (3.8-10.6) k/uL MCHC 30.7 L (31.0-37.0) g/dL Neutrophils # 12.7 H (1.3-7.7) k/uL Lymphocytes # 0.4 L (1.0-4.8) k/uL Chloride (98-107) mmol/L Carbon Dioxide (22-30) mmol/L Creatinine (0.52-1.04) mg/dL Glucose (74-99) mg/dL POC Glucose (mg/dL) 170 H 154 H (75-99) mg/dL AST (14-36) U/L Total Protein (6.3-8.2) g/dL 11/05/17 11/05/17 11/05/17 Range/Units 06:14 06:18 12:10 WBC (3.8-10.6) k/uL MCHC (31.0-37.0) g/dL Neutrophils # (1.3-7.7) k/uL Lymphocytes # (1.0-4.8) k/uL Chloride 94 L (98-107) mmol/L Carbon Dioxide 38 H (22-30) mmol/L Creatinine 0.48 L (0.52-1.04) mg/dL Glucose 163 H (74-99) mg/dL POC Glucose (mg/dL) 163 H 160 H (75-99) mg/dL AST 40 H (14-36) U/L Total Protein 5.9 L (6.3-8.2) g/dL Microbiology - Last 24 Hours (Table) 11/03/17 11:58 Blood Culture Gram Stain - Preliminary Blood Blood Culture - Preliminary Coagulase Negative Staph 11/03/17 11:58 Blood Culture - Final Blood Assessment and Plan Plan: Assessment: #1 influenza A #2 COPD #3 hypertension #4 atypical chest pain, pain only with breathing, resolved #5 mild QT prolongation Plan From cardiology's perspective, we do recommend that the Zithromax be discontinued. We will also review the echocardiogram with Doppler study. if the echo is normal, we will follow this patient with you now on an as-needed basis only, please don't hesitate to call with any questions. DNP note has been reviewed, I agree with a documented findings and plan of care. Patient was seen and examined.
[2017-11-05 17:29] LABS: Glucose,Whole Blood 205 mg/dL (75-99)
[2017-11-05 21:12] LABS: Glucose,Whole Blood 175 mg/dL (75-99)
[2017-11-06] MEDS: MORPHINE ORAL SOLN 10 MG/5 ML CUP PO PRN ×3 (00:39→23:38)
[2017-11-06] MEDS: methylPREDNISolone SOD SUCCI 125 MG/2 ML VIAL IV SCH ×5 (00:40→23:12)
[2017-11-06] MEDS: HEPARIN SODIUM,PORCINE 5,000 UNIT/ML 1 ML VIAL SQ SCH ×4 (00:40→23:12)
[2017-11-06 07:03] LABS: Glucose,Whole Blood 153 mg/dL (75-99)
[2017-11-06] MEDS: IPRATROPIUM-ALBUTEROL 3 ML NEB INHALATION PRN ×4 (08:51→20:22)
[2017-11-06] MEDS: INSULIN ASPART 100 UNIT/ML 1 ML 10 ML VIAL SQ SCH ×4 (08:53→23:10)
[2017-11-06] MEDS: amLODIPine 5 MG TAB PO SCH ×2 (09:52→20:39)
[2017-11-06] MEDS: PANTOPRAZOLE 40 MG TABLET PO SCH (09:52)
[2017-11-06] MEDS: clonazePAM 1 MG TAB PO SCH ×3 (09:52→20:40)
[2017-11-06] MEDS: guaiFENesin 600 MG TABLET.ER PO SCH ×2 (09:52→20:39)
[2017-11-06] MEDS: VENLAFAXINE HCL ER 150 MG CAP PO SCH (09:52)
[2017-11-06] MEDS: OSELTAMIVIR 75 MG CAP PO SCH ×2 (09:52→20:39)
[2017-11-06] MEDS: CALCIUM CARB-VIT D 500MG-200UN 1 EACH TAB PO SCH (09:52)
[2017-11-06] MEDS: ANASTROZOLE 1 MG TAB PO SCH (09:52)
--- NOTE | 2017-11-06 11:24 | P.PN ---
Subjective Progress Note Date: 11/06/17 Principal diagnosis: COPD with exacerbation Patient still requiring 5 L of oxygen but her saturation is ranging between 96 and 99 I discussed with the nursing staff current treatment plan and I discussed with the patient's family who are at the bedside including her mother brother and his current prognosis and stronger recommendation for smoking cessation including secondhand smoking when patient sees the hospital Objective - Vital Signs Vital signs: Vital Signs Temp 98.3 F 11/06/17 08:00 Pulse 92 11/06/17 09:04 Resp 16 11/06/17 08:00 BP 141/86 11/06/17 04:29 Pulse Ox 97 11/06/17 08:00 Intake & Output 11/05/17 11/06/17 11/06/17 18:59 06:59 18:59 Intake Total 960 Output Total 350 Balance 610 Intake: Oral 960 Output: Urine 350 Other: Voiding Method Toilet Toilet Bedside Commode # Voids 4 2 - Exam Gen. and her stated age in mild distress Heart: Normal S1-S2 Lungs: Decreased air entry bilaterally with fine end expiratory wheezing Abdomen: Soft no tenderness plus pulses [facility] Lower extremity no edema Skin no rash Psych alert and oriented 4 - Labs CBC & Chem 7: 11/05/17 06:14 11/05/17 06:14 Labs: Abnormal Lab Results - Last 24 Hours (Table) 11/05/17 11/05/17 11/05/17 Range/Units 12:10 17:24 20:57 POC Glucose (mg/dL) 160 H 205 H 175 H (75-99) mg/dL 11/06/17 Range/Units 06:54 POC Glucose (mg/dL) 153 H (75-99) mg/dL Microbiology - Last 24 Hours (Table) 11/03/17 11:58 Blood Culture Gram Stain - Final Blood Blood Culture - Final Staph hominis sub sp. hominis Assessment and Plan Assessment: 1. Acute respiratory failure on chronic respiratory failure with hypoxia. 2. COPD with acute exacerbation. 3. Influenza. 4. History of breast cancer with bilateral mastectomy. 5. Hypertension. 6. Debility and deconditioning. 7. Anxiety and depression. 8. Gram-positive cocci bacteremia thought to be contamination Plan: I discussed with the nursing staff to wean off patient's oxygen as tolerated and goal is O2 sat duration above 89%. I would like to follow-up with pulmonary recommendation regarding weaning off steroids regarding discharge planning will continue antibiotics intravenously while patient in the hospital consider switching to oral antibiotics on discharge. Plan discussed with the patient and her family at the bedside and she is agreeable to the current treatment plan and we would encourage ambulation and monitor patient closely over the next 24 hours for possible discharge in the morning
[2017-11-06 11:43] LABS: Glucose,Whole Blood 287 mg/dL (75-99)
[2017-11-06] MEDS ORDERED: INSULIN ASPART 100 UNIT/ML 1 ML 10 ML VIAL SQ ONE ×2 (12:41→22:43)
[2017-11-06] MEDS: NYSTATIN 100,000 UNIT/ML SUSP 500,000 UNIT/5 ML CUP PO SCH ×3 (14:06→20:39)
[2017-11-06] MEDS: cefTRIAXone IN SWFI 1,000 MG/10 ML SYRINGE IVP SCH (14:06)
--- NOTE | 2017-11-06 16:37 | P.PN ---
Subjective Progress Note Date: 11/06/17 Principal diagnosis: Acute exacerbation of COPD, complicated by influenza A infection This is a very pleasant 56-year-old female patient who follows with Dr. Alberts as her primary care physician. 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 She also has a history of severe oxygen dependent chronic obstructive pulmonary disease with a baseline FEV1 value of 37% of predicted. She follows with Dr. Mock in our office for the same. She was recently discharged in August 2017 for COPD exacerbation. She presented here to the emergency room again yesterday after being treated in the outpatient setting was steroids regarding her COPD by her PCP. She also is having complaints of chest pain. Troponins were negative. Her chest x-ray shows no evidence of acute pulmonary process. She did test positive for influenza A and was admitted for the same. T-max of 100.4. She was hypoxic at 86% O2 saturation on 2 L/m per nasal cannula. She is seen today in consultation on the selective care unit. She is awake and alert in no acute distress. She does have some pain on inhalation. She has a dry nonproductive cough. No chills or night sweats. She has some sore throat. She has been initiated on Tamiflu, IV Solu-Medrol, bronchodilators and empiric antibiotics in the form of azithromycin. The patient is seen again today 11/05/2017 in follow-up in the selective care unit. She is awake and alert in no acute distress. She is still having some swings in mood's between crying and laughing. She states she is breathing slightly better today as compared to yesterday but far from her baseline. She is dyspneic with minimal exertion. She continues with a dry nonproductive cough. No chills or night sweats. She remains afebrile. She is maintaining good O2 saturations in the 90s on 5 L/m per nasal cannula. White count 13.5. Hemoglobin 12.5. Creatinine 0.48. Patient was reevaluated today on 11/06/2017, continues to have intermittent cough wheezing shortness of breath. According to the patient she is not showing any improvement whatsoever. Her blood culture came back positive for staph hominis which is sensitive to all antibiotics except erythromycin, and usually this is a soft tissue type of infection related. And the patient does not have any soft tissue infection that could be appreciated clinically. I have started the patient on Rocephin, and I have initiated and infectious disease consultation on this patient. In the meantime the patient will remain on bronchodilators and steroids for her underlying COPD exacerbation, she is also on Tamiflu for influenza A infection Objective - Vital Signs Vital signs: Vital Signs Temp 97.4 F L 11/06/17 15:00 Pulse 90 11/06/17 15:00 Resp 17 11/06/17 15:00 BP 145/88 11/06/17 15:00 Pulse Ox 93 L 11/06/17 15:00 Intake & Output 11/05/17 11/06/17 11/06/17 18:59 06:59 18:59 Intake Total 960 Output Total 350 Balance 610 Intake: Oral 960 Output: Urine 350 Other: Voiding Method Toilet Toilet Bedside Commode # Voids 4 2 3 - Exam GENERAL EXAM: Frail, cachectic. Mood swings. HEAD: Normocephalic. EYES: Normal reaction of pupils, equal size. NOSE: Clear with pink turbinates. THROAT: No erythema or exudates. NECK: No masses, no JVD. CHEST: No chest wall deformity. LUNGS: Equal air entry with bilateral end expiratory wheeze. CVS: S1 and S2 normal with no audible murmur, regular rhythm. ABDOMEN: No hepatosplenomegaly, normal bowel sounds, no guarding or rigidity. SPINE: No scoliosis or deformity SKIN: No rashes CENTRAL NERVOUS SYSTEM: No focal deficits, tone is normal in all 4 extremities. EXTREMITIES: There is no peripheral edema. No clubbing, no cyanosis. Peripheral pulses are intact. - Labs CBC & Chem 7: 11/05/17 06:14 11/05/17 06:14 Labs: Abnormal Lab Results - Last 24 Hours (Table) 11/05/17 11/05/17 11/06/17 Range/Units 17:24 20:57 06:54 POC Glucose (mg/dL) 205 H 175 H 153 H (75-99) mg/dL 11/06/17 Range/Units 11:27 POC Glucose (mg/dL) 287 H (75-99) mg/dL Microbiology - Last 24 Hours (Table) 11/03/17 11:58 Blood Culture Gram Stain - Final Blood Blood Culture - Final Staph hominis sub sp. hominis Assessment and Plan Assessment: 1 Acute exacerbation of chronic obstructive pulmonary disease, oxygen dependent , FEV1 value of 37% of predicted, complicated by influenza A infection. #2 Acute on chronic hypoxic respiratory failure secondary to above. #3 History of chronic tobacco dependence. #4 History of metastatic breast cancer status post bilateral mastectomy. Remains on Arimidex. #5 Hypertension. Remains on amlodipine. #6 Anxiety/depression. Remains on Effexor. #7 History of Alysha syndrome. #8 acute staph hominis bacteremia, patient will be started on Rocephin, will ask for infectious disease evaluation, repeat blood cultures were ordered. Recommendation: Continue present supportive care measures, antibiotics, steroids , bronchodilators, Tamiflu, at this point the patient is not ready for any discharge planning. Time with Patient: Less than 30
[2017-11-06 16:56] LABS: Glucose,Whole Blood 110 mg/dL (75-99)
--- NOTE | 2017-11-06 17:37 | CONS ---
CONSULTATION DATE OF SERVICE: 11/06/2017. REASON FOR CONSULTATION: 1. Positive blood culture. 2. Acute influenza. HISTORY OF PRESENT ILLNESS: The patient is a 56-year-old female with past medical history significant for a metastatic breast cancer, status post bilateral mastectomy. The patient also has advanced COPD, hypertension, hyperlipidemia, allergic rhinitis. The patient apparently started having increasing shortness of breath and cough along with wheezing for the patient has been treated in outpatient setting with steroid and Z-Gen by her primary care physician; however, the patient's symptoms continued to get worse with increasing shortness of breath along with wheezing. She did have a cough and did mention she would bring up some greenish sputum. No hemoptysis. No significant pleuritic chest pain. No nausea, no vomiting or any diarrhea. The patient with worsening symptom was brought into the ER. The patient did have a low-grade fever of 100.2. The patient did have acute influenza and came back positive for type A. The patient did have a chest x- ray that was reported to be negative for any acute infiltrate. The patient did have blood cultures drawn, which came back positive for gram-positive; hence, ID was consulted for further recommendation of antibiotic therapy. The patient currently denies having any hardware with no pacemaker, central lines or any joint replacement, but main symptom remains to be increasing shortness of breath along with cough and wheezing. Coughing is getting more dry now. Denies having any abdominal pain and no diarrhea or any other constipation. REVIEW OF SYSTEMS: CONSTITUTIONAL: Positive for weakness and low-grade fever. EYES: No complaint. ENT: As per HPI. RESPIRATORY: As per HPI. CARDIOVASCULAR: No complaint. GENITOURINARY: No complaint. GASTROINTESTINAL: No complaint. MUSCULOSKELETAL: No complaint. INTEGUMENTARY: No complaint. PSYCHOLOGICAL: No complaint. ENDOCRINE: No complaint. NEUROLOGICAL: No complaint. PAST MEDICAL HISTORY: Significant for a metastatic breast cancer, COPD, gastroesophageal reflux disease, GI bleed, hypertension, pneumonia. PAST SURGICAL HISTORY: Bilateral mastectomy and lymph node dissection, colonoscopy, EGD, left knee arthroscopy, left ACL repair. SOCIAL HISTORY: Remote history of smoking. Social drinking. No drug use. FAMILY HISTORY: Father history of lung cancer, at age of 59. Mother healthy at the age of 80. ALLERGY: To LEVOFLOXACIN, PROCHLORPERAZINE AND ZOFRAN. MEDICATIONS: The patient is currently on DuoNeb, Norvasc, Arimidex, Os-Tino, Rocephin, Klonopin, Mucinex, heparin, NovoLog, melatonin, Solu-Medrol, morphine sulfate, Mycostatin oral suspension, Tamiflu, Protonix and Effexor. EXAMINATION: Blood pressure is 145/88 with a pulse of 90, temperature 97.4. He is 93% on 5 L nasal cannula. General description is a middle-aged female up in the bed, up in no distress. No tachypnea or accessory muscle of respiration use. HEENT: Shows no pallor or scleral icterus. Oral mucosa is moist. Slight erythema. No thrush. NECK: Trachea central. No thyromegaly. LUNGS: Unlabored breathing with bilateral expiratory wheeze. HEART: S1, S2 regular rate and rhythm. ABDOMEN: Soft, no tenderness, no guarding or rigidity. EXTREMITIES: No edema of the feet. SKIN EXAMINATION: No rashes or mass palpable. NEUROLOGICAL: Patient is awake, alert, oriented. Mood and affect normal. LABS: Hemoglobin 12.5, white count 13.5, BUN of 15, creatinine 0.4. Electrolytes have been normal. Liver enzymes normal. Urine has been negative. Serologies: Influenza A was positive. Blood culture finalized with Staphylococcus hominis. DIAGNOSTIC IMPRESSION/PLAN: 1. Patient with a positive blood culture with Staphylococcus hominis one 1:1 positive blood culture, more likely representing a skin contamination as no clinical disease to go along with it. Repeat blood culture is ordered to document clearance of bacteremia. No need for any systemic antibiotic therapy for the same. 2. Patient with acute influenza A with likely exacerbation of tracheobronchitis with no clinical suspicion or logically suspicious for pneumonia. PLAN: 1. Blood cultures have been repeated. Will follow. No need for addition of Vanco at this point. 2. The patient will try to obtain sputum for Gram stain culture and sensitivity. 3. The patient will continue on Tamiflu and Rocephin at this point while waiting for the condition to stabilize and cultures to finalize. 4. Depending on the clinical condition as well as repeat cultures will adjust her medications further if needed. Thank you for this consultation. Will follow the patient along with you. MMODL / IJN: [id number] / MTDD
[2017-11-06 20:49] LABS: Glucose,Whole Blood 271 mg/dL (75-99)
[2017-11-07 02:31] LABS: Glucose,Whole Blood 138 mg/dL (75-99)
[2017-11-07 07:11] LABS: Glucose,Whole Blood 159 mg/dL (75-99)
[2017-11-07] MEDS: methylPREDNISolone SOD SUCCI 125 MG/2 ML VIAL IV SCH ×3 (07:39→17:31)
[2017-11-07] MEDS: IPRATROPIUM-ALBUTEROL 3 ML NEB INHALATION PRN ×3 (08:27→16:32)
--- NOTE | 2017-11-07 09:47 | P.PN ---
Subjective Progress Note Date: 11/07/17 Principal diagnosis: Acute exacerbation of COPD, complicated by influenza A infection. This is a very pleasant 56-year-old female patient who follows with Dr. Alberts as her primary care physician. 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 She also has a history of severe oxygen dependent chronic obstructive pulmonary disease with a baseline FEV1 value of 37% of predicted. She follows with Dr. Mock in our office for the same. She was recently discharged in August 2017 for COPD exacerbation. She presented here to the emergency room again yesterday after being treated in the outpatient setting was steroids regarding her COPD by her PCP. She also is having complaints of chest pain. Troponins were negative. Her chest x-ray shows no evidence of acute pulmonary process. She did test positive for influenza A and was admitted for the same. T-max of 100.4. She was hypoxic at 86% O2 saturation on 2 L/m per nasal cannula. She is seen today in consultation on the selective care unit. She is awake and alert in no acute distress. She does have some pain on inhalation. She has a dry nonproductive cough. No chills or night sweats. She has some sore throat. She has been initiated on Tamiflu, IV Solu-Medrol, bronchodilators and empiric antibiotics in the form of azithromycin. The patient is seen again today 11/05/2017 in follow-up in the selective care unit. She is awake and alert in no acute distress. She is still having some swings in mood's between crying and laughing. She states she is breathing slightly better today as compared to yesterday but far from her baseline. She is dyspneic with minimal exertion. She continues with a dry nonproductive cough. No chills or night sweats. She remains afebrile. She is maintaining good O2 saturations in the 90s on 5 L/m per nasal cannula. White count 13.5. Hemoglobin 12.5. Creatinine 0.48. Patient was reevaluated today on 11/06/2017, continues to have intermittent cough wheezing shortness of breath. According to the patient she is not showing any improvement whatsoever. Her blood culture came back positive for staph hominis which is sensitive to all antibiotics except erythromycin, and usually this is a soft tissue type of infection related. And the patient does not have any soft tissue infection that could be appreciated clinically. I have started the patient on Rocephin, and I have initiated and infectious disease consultation on this patient. In the meantime the patient will remain on bronchodilators and steroids for her underlying COPD exacerbation, she is also on Tamiflu for influenza A infection On 11/07/2017 patient is reevaluated. Remains significantly dyspneic with any exertion and even at rest. Becomes short of breath even with normal conversation. Patient is having significant night sweats. Her cough is dry and nonproductive. Lung sounds positive for end expiratory wheezes, diminished overall. Afebrile, vital signs are stable, on 4 L per nasal cannula her O2 sat is 92%. She is currently on Rocephin, Tamiflu, nebulized treatments and IV Solu -Medrol. Blood cultures was positive for staph hominis, with susceptibility to ceftriaxone. Objective - Vital Signs Vital signs: Vital Signs Temp 97.9 F 11/07/17 04:00 Pulse 78 11/07/17 08:41 Resp 19 11/07/17 04:00 BP 124/80 11/07/17 04:00 Pulse Ox 92 L 11/07/17 04:00 Intake & Output 11/06/17 11/07/17 11/07/17 18:59 06:59 18:59 Other: Voiding Method Toilet Bedside Commode # Voids 3 3 - Exam GENERAL EXAM: Frail, cachectic. Mood swings. HEAD: Normocephalic. EYES: Normal reaction of pupils, equal size. NOSE: Clear with pink turbinates. THROAT: No erythema or exudates. NECK: No masses, no JVD. CHEST: No chest wall deformity. LUNGS: Equal air entry with bilateral end expiratory wheeze. CVS: S1 and S2 normal with no audible murmur, regular rhythm. ABDOMEN: No hepatosplenomegaly, normal bowel sounds, no guarding or rigidity. SPINE: No scoliosis or deformity SKIN: No rashes CENTRAL NERVOUS SYSTEM: No focal deficits, tone is normal in all 4 extremities. EXTREMITIES: There is no peripheral edema. No clubbing, no cyanosis. Peripheral pulses are intact. - Labs CBC & Chem 7: 11/05/17 06:14 11/05/17 06:14 Labs: Abnormal Lab Results - Last 24 Hours (Table) 11/06/17 11/06/17 11/06/17 Range/Units 11:27 16:37 20:47 POC Glucose (mg/dL) 287 H 110 H 271 H (75-99) mg/dL 11/07/17 11/07/17 Range/Units 01:02 06:49 POC Glucose (mg/dL) 138 H 159 H (75-99) mg/dL Assessment and Plan Plan: Assessment: 1 Acute exacerbation of chronic obstructive pulmonary disease, oxygen dependent , FEV1 value of 37% of predicted, complicated by influenza A infection. #2 Acute on chronic hypoxic respiratory failure secondary to above. #3 History of chronic tobacco dependence. #4 History of metastatic breast cancer status post bilateral mastectomy. Remains on Arimidex. #5 Hypertension. Remains on amlodipine. #6 Anxiety/depression. Remains on Effexor. #7 History of Alysha syndrome. #8 acute staph hominis bacteremia, patient will be started on Rocephin, will ask for infectious disease evaluation, repeat blood cultures were ordered. Recommendation: Patient remains significantly dyspneic with any exertion, even with normal conversation. Continues with night sweats, dry nonproductive cough. Remains limited in terms of activity tolerance. Continue present supportive care measures, antibiotics, steroids, bronchodilators, Tamiflu, at this point the patient is not ready for any discharge planning. I performed a history & physical examination of the patient and discussed their management with my nurse practitioner, Mere Ruth. I reviewed the nurse practitioner's note and agree with the documented findings and plan of care. Lung sounds are positive for diffuse end expiratory wheezes throughout the lung [place]. The findings and the impression was discussed with the patient. I attest to the documentation by the nurse practitioner. Time with Patient: Less than 30
[2017-11-07] MEDS: PANTOPRAZOLE 40 MG TABLET PO SCH (10:02)
[2017-11-07] MEDS: ANASTROZOLE 1 MG TAB PO SCH (10:02)
[2017-11-07] MEDS: amLODIPine 5 MG TAB PO SCH ×2 (10:02→21:13)
[2017-11-07] MEDS: HEPARIN SODIUM,PORCINE 5,000 UNIT/ML 1 ML VIAL SQ SCH ×2 (10:02→17:33)
[2017-11-07] MEDS: VENLAFAXINE HCL ER 150 MG CAP PO SCH (10:02)
[2017-11-07] MEDS: OSELTAMIVIR 75 MG CAP PO SCH ×2 (10:02→21:13)
[2017-11-07] MEDS: guaiFENesin 600 MG TABLET.ER PO SCH ×2 (10:03→21:18)
[2017-11-07] MEDS: CALCIUM CARB-VIT D 500MG-200UN 1 EACH TAB PO SCH (10:03)
[2017-11-07] MEDS: cefTRIAXone IN SWFI 1,000 MG/10 ML SYRINGE IVP SCH (10:03)
[2017-11-07] MEDS: NYSTATIN 100,000 UNIT/ML SUSP 500,000 UNIT/5 ML CUP PO SCH ×4 (10:03→21:13)
[2017-11-07] MEDS: INSULIN ASPART 100 UNIT/ML 1 ML 10 ML VIAL SQ SCH ×4 (10:04→21:12)
[2017-11-07] MEDS: clonazePAM 1 MG TAB PO SCH ×3 (10:11→21:12)
[2017-11-07 11:06] LABS: Glucose,Whole Blood 305 mg/dL (75-99)
[2017-11-07] MEDS ORDERED: VANCOMYCIN IV PER PHARMACY 1 EACH MISC MISCELLANE PRN (13:06)
[2017-11-07] MEDS: VANCOMYCIN 1,000 MG in SODIUM CHLORIDE 0.9% 250 ML IVPB SCH ×2 (14:31→21:14)
--- NOTE | 2017-11-07 15:39 | P.PN ---
Subjective Progress Note Date: 11/07/17 This is a 56-year-old female one of Dr. Alberts with a previous medical history significant for breast cancer with metastatic disease to the regular status post radiation therapy, history of COPD, hypertension and hypertensive cardio vascular disease, hyperlipidemia, ALLERGIC rhinitis, patient was in her usual state of health until about a week ago when she went and saw Dr. Alberts in the office and she did receive a Depo-Medrol as well as a Medrol Dosepak and Zithromax, patient was on her way down on the Z-Gen and Medrol Dosepak yesterday when she developed to have severe sore throat associated with fever and chills and significant shortness breath she took her oxymeter was around 88% on 2 L nasal cannula, daughter came and checked on her and she told her to come to the ER today because of severe shortness of breath not able to move air in and out, despite the use of nebulized treatment at home and despite oxygen support and she had failed outpatient treatment. Patient was seen in the ER and she was started on IV antibiotic in the form of Zithromax 500 mg IV piggyback every 24 hours as well as Solu-Medrol 60 mg IV push every 6 hours, nebulized treatment in the form of DuoNeb 3 mg nebulization 4 times a day and Pulmicort milligrams nebulization twice every day, patient will have a flu swab done and she would be admitted to the hospital for COPD exacerbation she will be seen in consultation by Dr. Silva. 11/04: Today is feeling a bit tight, she isn't droplet isolation due to her influenza A, she was seen in consultation by pulmonary as well as cardiology, her blood culture showed gram-positive cocci in cluster, we will maintain the patient current antibiotic until the final identity of the organism. 11/05: Patient continued to require 5 L of oxygen at the time she uses 2 L at home patient still short of breath with conversation was not able to go to the bathroom due to shortness of breath and the orbital bedside commode for her. Patient is denying chest pain, nausea, vomiting, dumping, dizziness, lightheadedness or blurry vision. 11/06: Patient still requiring 5 L of oxygen but her saturation is ranging between 96 and 99 I discussed with the nursing staff current treatment plan and I discussed with the patient's family who are at the bedside including her mother brother and his current prognosis and stronger recommendation for smoking cessation including secondhand smoking when patient sees the hospital 11/07: Patient is tearful today and states she is not feeling well. She remains and droplet isolation for influenza. Blood culture is him off and was Objective - Vital Signs Vital signs: Vital Signs Temp 97.5 F L 11/07/17 07:00 Pulse 80 11/07/17 12:07 Resp 14 11/07/17 07:00 BP 132/91 11/07/17 07:00 Pulse Ox 91 L 11/07/17 07:00 Intake & Output 11/06/17 11/07/17 11/07/17 18:59 06:59 18:59 Other: Voiding Method Toilet Bedside Commode # Voids 3 3 - Exam General appearance: average body habitus, mild distress - EENT Eyes: anicteric sclerae, EOMI, PERRLA, no ptosis, no scleral icterus, normal appearance ENT: hearing grossly normal, NA/AT, normal oropharynx, pharyngeal erythema, no thrush Ears: bilateral: normal - Neck Neck: no lymphadenopathy, normal ROM, no rigidity, no stridor, no thyromegaly Carotids: bilateral: upstroke normal Thyroid: bilateral: normal size - Respiratory Respiratory: bilateral: diminished, wheezing, prolonged expiration, negative: dullness, rales, rhonchi - Cardiovascular Rhythm: regular Heart sounds: normal: S1, S2 Abnormal Heart Sounds: no systolic murmur, no S3 Gallop, no S4 Gallop, no click - Gastrointestinal General gastrointestinal: normal bowel sounds, soft, no splenomegaly, no tenderness, no umbilical hernia, no ventral hernia - Integumentary Integumentary: normal, normal turgor - Neurologic Neurologic: CNII-XII intact - Musculoskeletal Musculoskeletal: generalized weakness, strength equal bilaterally - Psychiatric Psychiatric: A&O x's 3, appropriate affect, intact judgment & insight - Labs CBC & Chem 7: 11/05/17 06:14 11/05/17 06:14 Labs: Abnormal Lab Results - Last 24 Hours (Table) 11/06/17 11/06/17 11/07/17 Range/Units 16:37 20:47 01:02 POC Glucose (mg/dL) 110 H 271 H 138 H (75-99) mg/dL 11/07/17 11/07/17 Range/Units 06:49 11:01 POC Glucose (mg/dL) 159 H 305 H (75-99) mg/dL Microbiology - Last 24 Hours (Table) 11/06/17 13:32 Blood Culture Gram Stain - Preliminary Blood 11/06/17 13:33 Blood Culture - Final Blood Assessment and Plan Plan: 1. Acute respiratory insufficiency secondary to acute exacerbation of COPD and influenza. Continue Solu-Medrol 60 mg IV push every 6 hours, DuoNeb 3 ml nebulization 4 times every day, Pulmicort 1 mg nebulization twice every day, pulmonary consult appreciated so is cardiology consult, continue patient on Tamiflu 75 mg orally twice every day. 2. Breast cancer with bilateral mastectomy right for primary breast cancer left for prophylactic reasons. Has been on Arimidex 4 mg orally once every day. 3. Hypertension and hypertensive cardiovascular disease. Continue amlodipine 5 mg orally twice every day. 4. Depression, recurrent. Continue Effexor XR 150 mg orally once every day. 5. Generalized anxiety disorder. Continue Klonopin 1 mg orally three times every day. 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 7. DVT prophylaxis. Continue heparin 5000 units subcutaneously every 12 hours. 8. GI prophylaxis. Continue PPI. 9. Gram-positive cocci bacteremia thought to be due to contamination. Discharge plan: Home tomorrow Impression and plan of care have been directed as dictated by the signing physician. Arleen Gamez nurse practitioner acting as scribe for signing physician.
[2017-11-07 17:11] LABS: Glucose,Whole Blood 112 mg/dL (75-99)
[2017-11-07] MEDS: MORPHINE ORAL SOLN 10 MG/5 ML CUP PO PRN (17:32)
[2017-11-07 20:41] LABS: Glucose,Whole Blood 231 mg/dL (75-99)
--- NOTE | 2017-11-07 23:20 | PN ---
PROGRESS NOTE DATE OF SERVICE: 11/07/2017. REASON FOR FOLLOWUP: 1. Acute influenza. 2. Positive blood culture. INTERVAL HISTORY: The patient is afebrile. Still complaining of shortness of breath and wheezing. The cough is mostly dry in nature. No chest pain, no abdominal pain, no diarrhea. The patient did have bilateral breast implants, however, denies having any pain or swelling to the bilateral breast area. PHYSICAL EXAMINATION: Blood pressure 143/94 with a pulse of 88, temperature of 98.3. GENERAL DESCRIPTION: A middle-aged female, lying in bed in no distress. RESPIRATORY SYSTEM: Unlabored breathing. Occasional wheeze bilaterally. HEART: S1, S2. Regular rate and rhythm. ABDOMEN: Soft, no tenderness. EXTREMITIES: No edema of the feet. No rashes. Examination of the bilateral breasts with findings of no evidence of any cellulitis in the presence of a nurse aide. LABS: Blood cultures Staphylococcus hominis, repeat done 11/06/2017 showing gram-positive. DIAGNOSTIC IMPRESSION AND PLAN: Patient with a positive blood culture with Staph hominis, pointing more toward skin contamination. The patient has no clinical disease to go along with it. Not a very common cause of pneumonia. The patient had with no acute infiltrates on the chest x- ray. The patient did have acute influenza A for which she is currently on Tamiflu. We will repeat a chest x-ray tomorrow. Repeat blood cultures and empirically add vanco while waiting for the final ID of this gram-positive. Continue supportive care. MMODL / IJN: [id number] /
[2017-11-08] MEDS: methylPREDNISolone SOD SUCCI 125 MG/2 ML VIAL IV SCH ×2 (01:00→07:48)
[2017-11-08] MEDS: HEPARIN SODIUM,PORCINE 5,000 UNIT/ML 1 ML VIAL SQ SCH ×4 (01:01→23:32)
[2017-11-08] MEDS: VANCOMYCIN 1,000 MG in SODIUM CHLORIDE 0.9% 250 ML IVPB SCH ×2 (06:13→16:50)
[2017-11-08 07:05] LABS: Glucose,Whole Blood 187 mg/dL (75-99)
[2017-11-08] MEDS: INSULIN ASPART 100 UNIT/ML 1 ML 10 ML VIAL SQ SCH ×4 (07:47→21:07)
[2017-11-08] MEDS: CALCIUM CARB-VIT D 500MG-200UN 1 EACH TAB PO SCH (07:48)
[2017-11-08] MEDS: amLODIPine 5 MG TAB PO SCH ×2 (07:48→21:06)
[2017-11-08] MEDS: ANASTROZOLE 1 MG TAB PO SCH (07:48)
[2017-11-08] MEDS: PANTOPRAZOLE 40 MG TABLET PO SCH (07:49)
[2017-11-08] MEDS: OSELTAMIVIR 75 MG CAP PO SCH (07:49)
[2017-11-08] MEDS: guaiFENesin 600 MG TABLET.ER PO SCH ×2 (07:49→21:06)
[2017-11-08] MEDS: NYSTATIN 100,000 UNIT/ML SUSP 500,000 UNIT/5 ML CUP PO SCH ×4 (07:49→21:06)
[2017-11-08] MEDS: VENLAFAXINE HCL ER 150 MG CAP PO SCH (07:49)
[2017-11-08 07:57] LABS: Blood Urea Nitrogen 19 mg/dL (7-17); Calcium 9.2 mg/dL (8.4-10.2); Chloride 89 mmol/L (98-107); Glucose 183 mg/dL (74-99); Potassium 4.4 mmol/L (3.5-5.1); Sodium 139 mmol/L (137-145)
[2017-11-08] MEDS: IPRATROPIUM-ALBUTEROL 3 ML NEB INHALATION PRN ×3 (08:30→19:23)
[2017-11-08 08:31] LABS: Anion Gap 7 mmol/L; Carbon Dioxide 43 mmol/L (22-30)
[2017-11-08] MEDS: cefTRIAXone IN SWFI 1,000 MG/10 ML SYRINGE IVP SCH (10:47)
[2017-11-08] MEDS: clonazePAM 1 MG TAB PO SCH ×3 (10:47→21:06)
[2017-11-08 11:41] LABS: Glucose,Whole Blood 134 mg/dL (75-99)
--- NOTE | 2017-11-08 12:08 | P.PN ---
Subjective Progress Note Date: 11/08/17 Principal diagnosis: Acute exacerbation of COPD, complicated by influenza A infection. This is a very pleasant 56-year-old female patient who follows with Dr. Alberts as her primary care physician. 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 She also has a history of severe oxygen dependent chronic obstructive pulmonary disease with a baseline FEV1 value of 37% of predicted. She follows with Dr. Mock in our office for the same. She was recently discharged in August 2017 for COPD exacerbation. She presented here to the emergency room again yesterday after being treated in the outpatient setting was steroids regarding her COPD by her PCP. She also is having complaints of chest pain. Troponins were negative. Her chest x-ray shows no evidence of acute pulmonary process. She did test positive for influenza A and was admitted for the same. T-max of 100.4. She was hypoxic at 86% O2 saturation on 2 L/m per nasal cannula. She is seen today in consultation on the selective care unit. She is awake and alert in no acute distress. She does have some pain on inhalation. She has a dry nonproductive cough. No chills or night sweats. She has some sore throat. She has been initiated on Tamiflu, IV Solu-Medrol, bronchodilators and empiric antibiotics in the form of azithromycin. The patient is seen again today 11/05/2017 in follow-up in the selective care unit. She is awake and alert in no acute distress. She is still having some swings in mood's between crying and laughing. She states she is breathing slightly better today as compared to yesterday but far from her baseline. She is dyspneic with minimal exertion. She continues with a dry nonproductive cough. No chills or night sweats. She remains afebrile. She is maintaining good O2 saturations in the 90s on 5 L/m per nasal cannula. White count 13.5. Hemoglobin 12.5. Creatinine 0.48. Patient was reevaluated today on 11/06/2017, continues to have intermittent cough wheezing shortness of breath. According to the patient she is not showing any improvement whatsoever. Her blood culture came back positive for staph hominis which is sensitive to all antibiotics except erythromycin, and usually this is a soft tissue type of infection related. And the patient does not have any soft tissue infection that could be appreciated clinically. I have started the patient on Rocephin, and I have initiated and infectious disease consultation on this patient. In the meantime the patient will remain on bronchodilators and steroids for her underlying COPD exacerbation, she is also on Tamiflu for influenza A infection On 11/07/2017 patient is reevaluated. Remains significantly dyspneic with any exertion and even at rest. Becomes short of breath even with normal conversation. Patient is having significant night sweats. Her cough is dry and nonproductive. Lung sounds positive for end expiratory wheezes, diminished overall. Afebrile, vital signs are stable, on 4 L per nasal cannula her O2 sat is 92%. She is currently on Rocephin, Tamiflu, nebulized treatments and IV Solu -Medrol. Blood cultures was positive for staph hominis, with susceptibility to ceftriaxone. On 11/08/2017 patient seen in follow-up. She is complaining of being very fatigued and tired, low energy level. Lung sounds are diminished, slightly better from yesterday's exam in terms of wheezing. Patient remains afebrile, currently on 4 L per nasal cannula with O2 sat at 93%. Not bringing up much sputum. Blood culture was positive for staph hominis, patient is currently covered with Rocephin and vancomycin. ID service is on. Follow-up blood culture from 11/06/2017 showed coagulase-negative staph. 2 other follow-up blood cultures after that showed no growth. Patient still complains of being very limited in terms of activity tolerance. She is frustrated with her slow progress. Today's lab work showed sodium of 139, potassium is 4.4, chloride was 89, carbon dioxide was 43, BUN was 19, creatinine 0.54. Yesterday the possibility of bronchoscopy was discussed with the patient, however patient remained very tight and wheezy, and the possibility of adverse outcome including intubation during the bronchoscopy was also discussed. Patient does not want to be intubated, overall she states she does feel slightly better despite the slow improvement. We'll continue with current medical treatment for now. We will obtain a chest x-ray today. Objective - Vital Signs Vital signs: Vital Signs Temp 97.5 F L 11/08/17 08:02 Pulse 65 11/08/17 08:02 Resp 18 11/08/17 08:02 BP 155/92 11/08/17 08:02 Pulse Ox 93 L 11/08/17 08:02 Intake & Output 11/07/17 11/08/17 11/08/17 18:59 06:59 18:59 Intake Total 250 480 Balance 250 480 Intake: Intake, IV Titration 250 Amount Vancomycin 1,000 mg In 250 Sodium Chloride 0.9% 250 ml @ 125 mls/hr IVPB Q8H [facility] Rx#:[id number] Oral 480 Other: Voiding Method Toilet Bedside Commode # Voids 2 1 - Exam GENERAL EXAM: Frail, cachectic. Mood swings. HEAD: Normocephalic. EYES: Normal reaction of pupils, equal size. NOSE: Clear with pink turbinates. THROAT: No erythema or exudates. NECK: No masses, no JVD. CHEST: No chest wall deformity. LUNGS: Equal air entry with bilateral end expiratory wheeze. CVS: S1 and S2 normal with no audible murmur, regular rhythm. ABDOMEN: No hepatosplenomegaly, normal bowel sounds, no guarding or rigidity. SPINE: No scoliosis or deformity SKIN: No rashes CENTRAL NERVOUS SYSTEM: No focal deficits, tone is normal in all 4 extremities. EXTREMITIES: There is no peripheral edema. No clubbing, no cyanosis. Peripheral pulses are intact. - Labs CBC & Chem 7: 11/05/17 06:14 11/08/17 06:48 Labs: Abnormal Lab Results - Last 24 Hours (Table) 11/07/17 11/07/17 11/08/17 Range/Units 17:08 20:35 06:48 Chloride 89 L (98-107) mmol/L Carbon Dioxide 43 H* (22-30) mmol/L BUN 19 H (7-17) mg/dL Glucose 183 H (74-99) mg/dL POC Glucose (mg/dL) 112 H 231 H (75-99) mg/dL 11/08/17 11/08/17 Range/Units 06:58 11:36 Chloride (98-107) mmol/L Carbon Dioxide (22-30) mmol/L BUN (7-17) mg/dL Glucose (74-99) mg/dL POC Glucose (mg/dL) 187 H 134 H (75-99) mg/dL Microbiology - Last 24 Hours (Table) 11/06/17 13:32 Blood Culture Gram Stain - Preliminary Blood Blood Culture - Preliminary Coagulase Negative Staph 11/06/17 13:52 Blood Culture - Preliminary Blood No Growth after 24 hours 11/06/17 13:33 Blood Culture - Final Blood Assessment and Plan Plan: Assessment: 1 Acute exacerbation of chronic obstructive pulmonary disease, oxygen dependent , FEV1 value of 37% of predicted, complicated by influenza A infection. #2 Acute on chronic hypoxic respiratory failure secondary to above. #3 History of chronic tobacco dependence. #4 History of metastatic breast cancer status post bilateral mastectomy. Remains on Arimidex. #5 Hypertension. Remains on amlodipine. #6 Anxiety/depression. Remains on Effexor. #7 History of Alysha syndrome. #8 acute staph hominis bacteremia, patient will be started on Rocephin and vancomycin, will ask for infectious disease evaluation, repeat blood cultures showed coagulase-negative staph, and other blood cultures were negative Recommendation: Patient appears to be slightly better today, although she is frustrated with slow progress. We'll obtain a repeat chest x-ray today. Continue with current medical treatment, continue Rocephin and vancomycin. She still not producing any phlegm. Continue increasing activity as tolerated. Continue nebulized treatments. I performed a history & physical examination of the patient and discussed their management with my nurse practitioner, Mere Ruth. I reviewed the nurse practitioner's note and agree with the documented findings and plan of care. Lung sounds are positive for end expiratory wheezes throughout the lung [place]. The findings and the impression was discussed with the patient. I attest to the documentation by the nurse practitioner. Time with Patient: Less than 30
--- NOTE | 2017-11-08 14:43 | XR ---
EXAMINATION TYPE: XR chest 2V DATE OF EXAM: 11/08/2017 COMPARISON: 11/03/2017 HISTORY: Shortness of breath TECHNIQUE: Frontal and lateral views of the chest are obtained. FINDINGS: There is chronic right hemidiaphragm elevation and right hemithorax volume loss with eleva tion of the right minor fissure/parenchymal scarring. Right axillary surgical clips are again noted. There is an S-shaped scoliotic curvature of the visualized thoracolumbar spine. No new focal consolid ation, pleural effusion or pneumothorax is identified. Cardiomediastinal silhouette is within normal limits. Chronic right hemithorax volume loss, parenchymal scarring and right hemidiaphragm elevation. IMPRESSION: No acute cardiopulmonary process.
--- NOTE | 2017-11-08 14:53 | P.PN ---
Subjective Progress Note Date: 11/08/17 This is a 56-year-old female one of Dr. Alberts with a previous medical history significant for breast cancer with metastatic disease to the regular status post radiation therapy, history of COPD, hypertension and hypertensive cardio vascular disease, hyperlipidemia, ALLERGIC rhinitis, patient was in her usual state of health until about a week ago when she went and saw Dr. Alberts in the office and she did receive a Depo-Medrol as well as a Medrol Dosepak and Zithromax, patient was on her way down on the [employer] and Medrol Dosepak yesterday when she developed to have severe sore throat associated with fever and chills and significant shortness breath she took her oxymeter was around 88% on 2 L nasal cannula, daughter came and checked on her and she told her to come to the ER today because of severe shortness of breath not able to move air in and out, despite the use of nebulized treatment at home and despite oxygen support and she had failed outpatient treatment. Patient was seen in the ER and she was started on IV antibiotic in the form of Zithromax 500 mg IV piggyback every 24 hours as well as Solu-Medrol 60 mg IV push every 6 hours, nebulized treatment in the form of DuoNeb 3 mg nebulization 4 times a day and Pulmicort milligrams nebulization twice every day, patient will have a flu swab done and she would be admitted to the hospital for COPD exacerbation she will be seen in consultation by Dr. Silva. 11/04: Today is feeling a bit tight, she isn't droplet isolation due to her influenza A, she was seen in consultation by pulmonary as well as cardiology, her blood culture showed gram-positive cocci in cluster, we will maintain the patient current antibiotic until the final identity of the organism. 11/05: Patient continued to require 5 L of oxygen at the time she uses 2 L at home patient still short of breath with conversation was not able to go to the bathroom due to shortness of breath and the orbital bedside commode for her. Patient is denying chest pain, nausea, vomiting, dumping, dizziness, lightheadedness or blurry vision. 11/06: Patient still requiring 5 L of oxygen but her saturation is ranging between 96 and 99 I discussed with the nursing staff current treatment plan and I discussed with the patient's family who are at the bedside including her mother brother and his current prognosis and stronger recommendation for smoking cessation including secondhand smoking when patient sees the hospital 11/07: Patient is tearful today and states she is not feeling well. She remains and droplet isolation for influenza. Blood culture staph hominis and coag- negative staph 11/08: Patient has been up to the bathroom and shower today. Her breathing status is improving. Her mood is much improved today from yesterday. Repeat chest x-ray has been ordered by pulmonary medicine. Solu-Medrol is at 60 mg every 6 hours and will be decreased to 40 mg daily. Anticipate possible discharge by tomorrow. Objective - Vital Signs Vital signs: Vital Signs Temp 97.5 F L 11/08/17 08:02 Pulse 65 11/08/17 08:02 Resp 18 11/08/17 08:02 BP 155/92 11/08/17 08:02 Pulse Ox 93 L 11/08/17 08:02 Intake & Output 11/07/17 11/08/17 11/08/17 18:59 06:59 18:59 Intake Total 250 480 Balance 250 480 Intake: Intake, IV Titration 250 Amount Vancomycin 1,000 mg In 250 Sodium Chloride 0.9% 250 ml @ 125 mls/hr IVPB Q8H [facility] Rx#:[id number] Oral 480 Other: Voiding Method Toilet Bedside Commode # Voids 2 1 - Exam General appearance: average body habitus, mild distress - EENT Eyes: anicteric sclerae, EOMI, PERRLA, no ptosis, no scleral icterus, normal appearance ENT: hearing grossly normal, NA/AT, normal oropharynx, pharyngeal erythema, no thrush Ears: bilateral: normal - Neck Neck: no lymphadenopathy, normal ROM, no rigidity, no stridor, no thyromegaly Carotids: bilateral: upstroke normal Thyroid: bilateral: normal size - Respiratory Respiratory: bilateral: diminished, wheezing, prolonged expiration, negative: dullness, rales, rhonchi - Cardiovascular Rhythm: regular Heart sounds: normal: S1, S2 Abnormal Heart Sounds: no systolic murmur, no S3 Gallop, no S4 Gallop, no click - Gastrointestinal General gastrointestinal: normal bowel sounds, soft, no splenomegaly, no tenderness, no umbilical hernia, no ventral hernia - Integumentary Integumentary: normal, normal turgor - Neurologic Neurologic: CNII-XII intact - Musculoskeletal Musculoskeletal: generalized weakness, strength equal bilaterally - Psychiatric Psychiatric: A&O x's 3, appropriate affect, intact judgment & insight - Labs CBC & Chem 7: 11/05/17 06:14 11/08/17 06:48 Labs: Abnormal Lab Results - Last 24 Hours (Table) 11/07/17 11/07/17 11/08/17 Range/Units 17:08 20:35 06:48 Chloride 89 L (98-107) mmol/L Carbon Dioxide 43 H* (22-30) mmol/L BUN 19 H (7-17) mg/dL Glucose 183 H (74-99) mg/dL POC Glucose (mg/dL) 112 H 231 H (75-99) mg/dL 11/08/17 11/08/17 Range/Units 06:58 11:36 Chloride (98-107) mmol/L Carbon Dioxide (22-30) mmol/L BUN (7-17) mg/dL Glucose (74-99) mg/dL POC Glucose (mg/dL) 187 H 134 H (75-99) mg/dL Microbiology - Last 24 Hours (Table) 11/06/17 13:32 Blood Culture Gram Stain - Preliminary Blood Blood Culture - Preliminary Coagulase Negative Staph 11/06/17 13:52 Blood Culture - Preliminary Blood No Growth after 24 hours 11/06/17 13:33 Blood Culture - Final Blood Assessment and Plan Plan: 1. Acute respiratory insufficiency secondary to acute exacerbation of COPD and influenza. Continue Solu-Medrol 60 mg IV push every 6 hours, DuoNeb 3 ml nebulization 4 times every day, Pulmicort 1 mg nebulization twice every day, pulmonary consult appreciated so is cardiology consult, continue patient on Tamiflu 75 mg orally twice every day. 2. Breast cancer with bilateral mastectomy right for primary breast cancer left for prophylactic reasons. Has been on Arimidex 4 mg orally once every day. 3. Hypertension and hypertensive cardiovascular disease. Continue amlodipine 5 mg orally twice every day. 4. Depression, recurrent. Continue Effexor XR 150 mg orally once every day. 5. Generalized anxiety disorder. Continue Klonopin 1 mg orally three times every day. 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 7. DVT prophylaxis. Continue heparin 5000 units subcutaneously every 12 hours. 8. GI prophylaxis. Continue PPI. 9. Gram-positive cocci bacteremia thought to be due to contamination. Discharge plan: Home tomorrow Impression and plan of care have been directed as dictated by the signing physician. Arleen Gamez nurse practitioner acting as scribe for signing physician.
[2017-11-08] MEDS: MORPHINE ORAL SOLN 10 MG/5 ML CUP PO PRN ×2 (15:50→23:32)
[2017-11-08 17:39] LABS: Glucose,Whole Blood 185 mg/dL (75-99)
--- NOTE | 2017-11-08 20:29 | PN ---
PROGRESS NOTE DATE OF SERVICE: 11/08/2017 REASON FOR FOLLOWUP: 1. Acute influenza. 2. Positive blood culture. INTERVAL HISTORY: The patient is afebrile. She is breathing comfortably; less wheezing, less short of breath, minimal cough which seems to be dry in nature. No nausea, no vomiting, no abdominal pain and no diarrhea. PHYSICAL EXAMINATION: Blood pressure is 156/94 with a pulse of 96, temperature 97.7. She is 92% on 4 L nasal cannula. General description is a middle-aged female up in the bed in no distress. RESPIRATORY SYSTEM: Unlabored breathing with decreased intensity of breath sounds but no wheeze. HEART: S1, S2. Regular rate and rhythm. ABDOMEN: Soft. No tenderness. EXTREMITIES: No edema of the feet. LABS: BUN of 19, creatinine 0.54. Blood culture done on 11/06 is showing a coagulase-negative staph. Prior there was was Staph hominis. DIAGNOSTIC IMPRESSION AND PLAN: 1. Patient with a positive blood culture with Staphylococcus hominis and coagulase- negative staphylococcus, likely skin contamination. No clinical disease to go along with it. Vancomycin discontinued. Repeat blood culture has been negative. 2. Patient with acute influenza A, for which the patient is continued on Tamiflu to finish a 5-day course of therapy. Chest x-ray repeat this morning revealed no evidence of any pneumonia. Antibiotic can be discontinued on discharge. Continue with supportive care. MMODL / IJN: [id number] /
[2017-11-08 20:40] VITALS: RESP 16
[2017-11-08 20:55] LABS: Glucose,Whole Blood 154 mg/dL (75-99)
[2017-11-09] MEDS ORDERED: VANCOMYCIN TROUGH DUE 1 EACH MISC MISCELLANE ONE (05:00)
[2017-11-09 07:04] LABS: Glucose,Whole Blood 92 mg/dL (75-99)
[2017-11-09] MEDS: IPRATROPIUM-ALBUTEROL 3 ML NEB INHALATION PRN ×4 (08:07→20:40)
[2017-11-09 08:27] LABS: Blood Urea Nitrogen 29 mg/dL (7-17); Calcium 9.4 mg/dL (8.4-10.2); Chloride 92 mmol/L (98-107); Glucose 94 mg/dL (74-99); Potassium 4.6 mmol/L (3.5-5.1); Sodium 138 mmol/L (137-145)
[2017-11-09] MEDS: INSULIN ASPART 100 UNIT/ML 1 ML 10 ML VIAL SQ SCH ×4 (08:30→21:59)
[2017-11-09 08:45] LABS: Anion Gap 5 mmol/L
[2017-11-09 08:46] LABS: Carbon Dioxide 41 mmol/L (22-30)
[2017-11-09] MEDS: ANASTROZOLE 1 MG TAB PO SCH (09:26)
[2017-11-09] MEDS: NYSTATIN 100,000 UNIT/ML SUSP 500,000 UNIT/5 ML CUP PO SCH ×4 (09:26→22:05)
[2017-11-09] MEDS: methylPREDNISolone SOD SUCCI 40 MG/ML 1 ML VIAL IV SCH (09:26)
[2017-11-09] MEDS: HEPARIN SODIUM,PORCINE 5,000 UNIT/ML 1 ML VIAL SQ SCH ×2 (09:26→17:29)
[2017-11-09] MEDS: CALCIUM CARB-VIT D 500MG-200UN 1 EACH TAB PO SCH (09:27)
[2017-11-09] MEDS: VENLAFAXINE HCL ER 150 MG CAP PO SCH (09:27)
[2017-11-09] MEDS: guaiFENesin 600 MG TABLET.ER PO SCH ×2 (09:27→21:59)
[2017-11-09] MEDS: PANTOPRAZOLE 40 MG TABLET PO SCH (09:27)
[2017-11-09] MEDS: cefTRIAXone IN SWFI 1,000 MG/10 ML SYRINGE IVP SCH (09:31)
[2017-11-09] MEDS: clonazePAM 1 MG TAB PO SCH ×3 (09:40→21:59)
--- NOTE | 2017-11-09 09:46 | P.PN ---
Subjective Progress Note Date: 11/09/17 Principal diagnosis: Acute exacerbation of COPD, complicated by influenza A infection. This is a very pleasant 56-year-old female patient who follows with Dr. Alberts as her primary care physician. 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 She also has a history of severe oxygen dependent chronic obstructive pulmonary disease with a baseline FEV1 value of 37% of predicted. She follows with Dr. Mock in our office for the same. She was recently discharged in August 2017 for COPD exacerbation. She presented here to the emergency room again yesterday after being treated in the outpatient setting was steroids regarding her COPD by her PCP. She also is having complaints of chest pain. Troponins were negative. Her chest x-ray shows no evidence of acute pulmonary process. She did test positive for influenza A and was admitted for the same. T-max of 100.4. She was hypoxic at 86% O2 saturation on 2 L/m per nasal cannula. She is seen today in consultation on the selective care unit. She is awake and alert in no acute distress. She does have some pain on inhalation. She has a dry nonproductive cough. No chills or night sweats. She has some sore throat. She has been initiated on Tamiflu, IV Solu-Medrol, bronchodilators and empiric antibiotics in the form of azithromycin. The patient is seen again today 11/05/2017 in follow-up in the selective care unit. She is awake and alert in no acute distress. She is still having some swings in mood's between crying and laughing. She states she is breathing slightly better today as compared to yesterday but far from her baseline. She is dyspneic with minimal exertion. She continues with a dry nonproductive cough. No chills or night sweats. She remains afebrile. She is maintaining good O2 saturations in the 90s on 5 L/m per nasal cannula. White count 13.5. Hemoglobin 12.5. Creatinine 0.48. Patient was reevaluated today on 11/06/2017, continues to have intermittent cough wheezing shortness of breath. According to the patient she is not showing any improvement whatsoever. Her blood culture came back positive for staph hominis which is sensitive to all antibiotics except erythromycin, and usually this is a soft tissue type of infection related. And the patient does not have any soft tissue infection that could be appreciated clinically. I have started the patient on Rocephin, and I have initiated and infectious disease consultation on this patient. In the meantime the patient will remain on bronchodilators and steroids for her underlying COPD exacerbation, she is also on Tamiflu for influenza A infection On 11/07/2017 patient is reevaluated. Remains significantly dyspneic with any exertion and even at rest. Becomes short of breath even with normal conversation. Patient is having significant night sweats. Her cough is dry and nonproductive. Lung sounds positive for end expiratory wheezes, diminished overall. Afebrile, vital signs are stable, on 4 L per nasal cannula her O2 sat is 92%. She is currently on Rocephin, Tamiflu, nebulized treatments and IV Solu -Medrol. Blood cultures was positive for staph hominis, with susceptibility to ceftriaxone. On 11/08/2017 patient seen in follow-up. She is complaining of being very fatigued and tired, low energy level. Lung sounds are diminished, slightly better from yesterday's exam in terms of wheezing. Patient remains afebrile, currently on 4 L per nasal cannula with O2 sat at 93%. Not bringing up much sputum. Blood culture was positive for staph hominis, patient is currently covered with Rocephin and vancomycin. ID service is on. Follow-up blood culture from 11/06/2017 showed coagulase-negative staph. 2 other follow-up blood cultures after that showed no growth. Patient still complains of being very limited in terms of activity tolerance. She is frustrated with her slow progress. Today's lab work showed sodium of 139, potassium is 4.4, chloride was 89, carbon dioxide was 43, BUN was 19, creatinine 0.54. Yesterday the possibility of bronchoscopy was discussed with the patient, however patient remained very tight and wheezy, and the possibility of adverse outcome including intubation during the bronchoscopy was also discussed. Patient does not want to be intubated, overall she states she does feel slightly better despite the slow improvement. We'll continue with current medical treatment for now. We will obtain a chest x-ray today. On 11/09/2017 patient seen again in follow-up. She sits up in bed, awake, alert , denies any acute distress. She reports feeling better today, yesterday in the afternoon she was able to get up, take a shower, and ambulate within the room. Lung sounds are still positive for end expiratory wheezes but better air entry noted bilaterally. Still has a dry nonproductive cough. On 4 L per nasal cannula with O2 sat between 97 and 99%. Afebrile, vital signs are stable. Patient's follow-up blood cultures show negative growth after the initial 2 blood cultures from 11/03/2017 and 11/06/2017 positive for staph hominis and coagulase-negative staph, both specimens were thought to be contaminated. Patient remains on Rocephin, vancomycin has been discontinued per ID service. Chest x-ray from 11/08/2017 has been reviewed and showed no acute cardiopulmonary process. Objective - Vital Signs Vital signs: Vital Signs Temp 97.7 F 11/09/17 07:00 Pulse 84 11/09/17 08:16 Resp 16 11/09/17 07:00 BP 116/74 11/09/17 07:00 Pulse Ox 99 11/09/17 07:00 Intake & Output 11/08/17 11/09/17 11/09/17 18:59 06:59 18:59 Intake Total 840 1080 Balance 840 1080 Intake: Oral 840 1080 Other: Voiding Method Toilet Bedside Commode # Voids 3 - Exam GENERAL EXAM: Frail, cachectic. Mood swings. HEAD: Normocephalic. EYES: Normal reaction of pupils, equal size. NOSE: Clear with pink turbinates. THROAT: No erythema or exudates. NECK: No masses, no JVD. CHEST: No chest wall deformity. LUNGS: Equal air entry with bilateral end expiratory wheeze. CVS: S1 and S2 normal with no audible murmur, regular rhythm. ABDOMEN: No hepatosplenomegaly, normal bowel sounds, no guarding or rigidity. SPINE: No scoliosis or deformity SKIN: No rashes CENTRAL NERVOUS SYSTEM: No focal deficits, tone is normal in all 4 extremities. EXTREMITIES: There is no peripheral edema. No clubbing, no cyanosis. Peripheral pulses are intact. - Labs CBC & Chem 7: 11/05/17 06:14 11/09/17 07:38 Labs: Abnormal Lab Results - Last 24 Hours (Table) 11/08/17 11/08/17 11/08/17 Range/Units 11:36 16:50 20:53 Chloride (98-107) mmol/L Carbon Dioxide (22-30) mmol/L BUN (7-17) mg/dL POC Glucose (mg/dL) 134 H 185 H 154 H (75-99) mg/dL 11/09/17 Range/Units 07:38 Chloride 92 L (98-107) mmol/L Carbon Dioxide 41 H* (22-30) mmol/L BUN 29 H (7-17) mg/dL POC Glucose (mg/dL) (75-99) mg/dL Microbiology - Last 24 Hours (Table) 11/06/17 13:32 Blood Culture Gram Stain - Final Blood Blood Culture - Final Coagulase Negative Staph 11/07/17 14:17 Blood Culture - Preliminary Blood No Growth after 24 hours 11/06/17 13:52 Blood Culture - Preliminary Blood No Growth after 48 hours 11/07/17 13:39 Blood Culture - Preliminary Blood No Growth after 24 hours Assessment and Plan Plan: Assessment: 1 Acute exacerbation of chronic obstructive pulmonary disease, oxygen dependent , FEV1 value of 37% of predicted, complicated by influenza A infection. #2 Acute on chronic hypoxic respiratory failure secondary to above. #3 History of chronic tobacco dependence. #4 History of metastatic breast cancer status post bilateral mastectomy. Remains on Arimidex. #5 Hypertension. Remains on amlodipine. #6 Anxiety/depression. Remains on Effexor. #7 History of Alysha syndrome. #8 acute staph hominis bacteremia, patient will be started on Rocephin and vancomycin, will ask for infectious disease evaluation, repeat blood cultures showed coagulase-negative staph, and other blood cultures were negative. On vancomycin has been discontinued, follow blood cultures show negative growth. Recommendation: Patient continues to improve, however not back to bed baseline yet. Able to tolerate ambulation within the room, requires periods of rest, but no acute distress noted. Vital signs are stable, patient remains afebrile, follow blood cultures are negative. Vancomycin has been discontinued. Patient remains on Rocephin, IV Solu-Medrol, nebulized treatments. Increase activity as tolerated , anticipate further improvement. Patient may be considered for discharge in the next 24 hours provided she continues to improve. I performed a history & physical examination of the patient and discussed their management with my nurse practitioner, Mere Ruth. I reviewed the nurse practitioner's note and agree with the documented findings and plan of care. Lung sounds are positive for end expiratory wheezes throughout the lung [place]. The findings and the impression was discussed with the patient. I attest to the documentation by the nurse practitioner. Time with Patient: Less than 30
[2017-11-09] MEDS: amLODIPine 5 MG TAB PO SCH (10:10)
[2017-11-09 11:43] LABS: Glucose,Whole Blood 134 mg/dL (75-99)
--- NOTE | 2017-11-09 12:27 | P.PN ---
Subjective Progress Note Date: 11/09/17 This is a 56-year-old female one of Dr. Alberts with a previous medical history significant for breast cancer with metastatic disease to the regular status post radiation therapy, history of COPD, hypertension and hypertensive cardio vascular disease, hyperlipidemia, ALLERGIC rhinitis, patient was in her usual state of health until about a week ago when she went and saw Dr. Alberts in the office and she did receive a Depo-Medrol as well as a Medrol Dosepak and Zithromax, patient was on her way down on the [facility] and Medrol Dosepak yesterday when she developed to have severe sore throat associated with fever and chills and significant shortness breath she took her oxymeter was around 88% on 2 L nasal cannula, daughter came and checked on her and she told her to come to the ER today because of severe shortness of breath not able to move air in and out, despite the use of nebulized treatment at home and despite oxygen support and she had failed outpatient treatment. Patient was seen in the ER and she was started on IV antibiotic in the form of Zithromax 500 mg IV piggyback every 24 hours as well as Solu-Medrol 60 mg IV push every 6 hours, nebulized treatment in the form of DuoNeb 3 mg nebulization 4 times a day and Pulmicort milligrams nebulization twice every day, patient will have a flu swab done and she would be admitted to the hospital for COPD exacerbation she will be seen in consultation by Dr. Silva. 11/04: Today is feeling a bit tight, she isn't droplet isolation due to her influenza A, she was seen in consultation by pulmonary as well as cardiology, her blood culture showed gram-positive cocci in cluster, we will maintain the patient current antibiotic until the final identity of the organism. 11/05: Patient continued to require 5 L of oxygen at the time she uses 2 L at home patient still short of breath with conversation was not able to go to the bathroom due to shortness of breath and the orbital bedside commode for her. Patient is denying chest pain, nausea, vomiting, dumping, dizziness, lightheadedness or blurry vision. 11/06: Patient still requiring 5 L of oxygen but her saturation is ranging between 96 and 99 I discussed with the nursing staff current treatment plan and I discussed with the patient's family who are at the bedside including her mother brother and his current prognosis and stronger recommendation for smoking cessation including secondhand smoking when patient sees the hospital 11/07: Patient is tearful today and states she is not feeling well. She remains and droplet isolation for influenza. Blood culture staph hominis and coag- negative staph 11/08: Patient has been up to the bathroom and shower today. Her breathing status is improving. Her mood is much improved today from yesterday. Repeat chest x-ray has been ordered by pulmonary medicine. Solu-Medrol is at 60 mg every 6 hours and will be decreased to 40 mg daily. Anticipate possible discharge by tomorrow. 11/09: Patient is complaining of feeling very weak. Physical therapy evaluation will be added. She has completed her course of Tamiflu. Dr. Torrez is recommended no antibiotics at the time of discharge. Anticipate discharge home tomorrow. Objective - Vital Signs Vital signs: Vital Signs Temp 97.7 F 11/09/17 07:00 Pulse 84 11/09/17 08:16 Resp 16 11/09/17 07:00 BP 116/74 11/09/17 07:00 Pulse Ox 99 11/09/17 07:00 Intake & Output 11/08/17 11/09/17 11/09/17 18:59 06:59 18:59 Intake Total 840 1080 Balance 840 1080 Intake: Oral 840 1080 Other: Voiding Method Toilet Bedside Commode # Voids 3 - Exam General appearance: average body habitus, mild distress - EENT Eyes: anicteric sclerae, EOMI, PERRLA, no ptosis, no scleral icterus, normal appearance ENT: hearing grossly normal, NA/AT, normal oropharynx, pharyngeal erythema, no thrush Ears: bilateral: normal - Neck Neck: no lymphadenopathy, normal ROM, no rigidity, no stridor, no thyromegaly Carotids: bilateral: upstroke normal Thyroid: bilateral: normal size - Respiratory Respiratory: bilateral: diminished, wheezing, prolonged expiration, negative: dullness, rales, rhonchi - Cardiovascular Rhythm: regular Heart sounds: normal: S1, S2 Abnormal Heart Sounds: no systolic murmur, no S3 Gallop, no S4 Gallop, no click - Gastrointestinal General gastrointestinal: normal bowel sounds, soft, no splenomegaly, no tenderness, no umbilical hernia, no ventral hernia - Integumentary Integumentary: normal, normal turgor - Neurologic Neurologic: CNII-XII intact - Musculoskeletal Musculoskeletal: generalized weakness, strength equal bilaterally - Psychiatric Psychiatric: A&O x's 3, appropriate affect, intact judgment & insight - Labs CBC & Chem 7: 11/05/17 06:14 11/09/17 07:38 Labs: Abnormal Lab Results - Last 24 Hours (Table) 11/08/17 11/08/17 11/08/17 Range/Units 11:36 16:50 20:53 Chloride (98-107) mmol/L Carbon Dioxide (22-30) mmol/L BUN (7-17) mg/dL POC Glucose (mg/dL) 134 H 185 H 154 H (75-99) mg/dL 11/09/17 Range/Units 07:38 Chloride 92 L (98-107) mmol/L Carbon Dioxide 41 H* (22-30) mmol/L BUN 29 H (7-17) mg/dL POC Glucose (mg/dL) (75-99) mg/dL Microbiology - Last 24 Hours (Table) 11/06/17 13:32 Blood Culture Gram Stain - Final Blood Blood Culture - Final Coagulase Negative Staph 11/07/17 14:17 Blood Culture - Preliminary Blood No Growth after 24 hours 11/06/17 13:52 Blood Culture - Preliminary Blood No Growth after 48 hours 11/07/17 13:39 Blood Culture - Preliminary Blood No Growth after 24 hours Assessment and Plan Plan: 1. Acute respiratory insufficiency secondary to acute exacerbation of COPD and influenza. Continue Solu-Medrol 40 mg IV push every day, DuoNeb 3 ml nebulization 4 times every day, Pulmicort 1 mg nebulization twice every day, pulmonary consult appreciated so is cardiology consult, completed Tamiflu. 2. Breast cancer with bilateral mastectomy right for primary breast cancer left for prophylactic reasons. Has been on Arimidex 4 mg orally once every day. 3. Hypertension and hypertensive cardiovascular disease. Continue amlodipine 5 mg orally twice every day. 4. Depression, recurrent. Continue Effexor XR 150 mg orally once every day. 5. Generalized anxiety disorder. Continue Klonopin 1 mg orally three times every day. 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 7. DVT prophylaxis. Continue heparin 5000 units subcutaneously every 12 hours. 8. GI prophylaxis. Continue PPI. 9. Gram-positive cocci bacteremia thought to be due to contamination. Discharge plan: Home tomorrow Impression and plan of care have been directed as dictated by the signing physician. Arleen Gamez nurse practitioner acting as scribe for signing physician.
--- NOTE | 2017-11-09 17:04 | PN ---
PROGRESS NOTE DATE OF SERVICE: 11/09/2017. REASON FOR FOLLOWUP: 1. Acute influenza. 2. Positive blood culture likely contamination. INTERVAL HISTORY: The patient is afebrile. She is breathing slightly comfortably. She did have some cough but not bringing up any sputum. No chest pain. No abdominal pain. No diarrhea. EXAMINATION: Blood pressure is 140/79 with a pulse of 79, temperature of 99.2. She is 96% on 4 L nasal cannula. General description is a middle-aged female up in the bed in no distress. RESPIRATORY SYSTEM: Unlabored breathing, decreased breath sounds with occasional wheeze. HEART: S1, S2. Regular rate and rhythm. ABDOMEN: Soft, no tenderness. LABS: BUN of 29, creatinine 0.63. Blood cultures repeat 11/06 and 11/07 are negative. DIAGNOSTIC IMPRESSION AND PLAN: 1. Patient with positive Staph hominis and likely contamination currently off the Vancomycin. Blood culture repeat has been negative. 2. Patient with a positive influenza for which the patient to finish her 5-day course of therapy. MMODL / IJN: [id number] / MTDD
[2017-11-09 17:36] LABS: Glucose,Whole Blood 153 mg/dL (75-99)
[2017-11-09 20:49] LABS: Glucose,Whole Blood 138 mg/dL (75-99)
[2017-11-09] MEDS: MORPHINE ORAL SOLN 10 MG/5 ML CUP PO PRN (22:01)
[2017-11-10] MEDS: amLODIPine 5 MG TAB PO SCH ×2 (00:01→08:53)
[2017-11-10] MEDS: HEPARIN SODIUM,PORCINE 5,000 UNIT/ML 1 ML VIAL SQ SCH ×2 (00:11→10:51)
[2017-11-10 07:13] LABS: Glucose,Whole Blood 106 mg/dL (75-99)
[2017-11-10 07:29] LABS: Blood Urea Nitrogen 26 mg/dL (7-17); Calcium 9.5 mg/dL (8.4-10.2); Chloride 88 mmol/L (98-107); Glucose 113 mg/dL (74-99); Potassium 4.3 mmol/L (3.5-5.1); Sodium 138 mmol/L (137-145)
[2017-11-10] MEDS: IPRATROPIUM-ALBUTEROL 3 ML NEB INHALATION PRN (07:33)
[2017-11-10 07:37] LABS: Anion Gap 4 mmol/L
[2017-11-10 07:45] LABS: Carbon Dioxide 46 mmol/L (22-30)
[2017-11-10] MEDS: INSULIN ASPART 100 UNIT/ML 1 ML 10 ML VIAL SQ SCH (08:11)
--- NOTE | 2017-11-10 08:48 | P.PN ---
Subjective Progress Note Date: 11/10/17 Principal diagnosis: Acute exacerbation of COPD, complicated by influenza A infection. This is a very pleasant 56-year-old female patient who follows with Dr. Alberts as her primary care physician. 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 She also has a history of severe oxygen dependent chronic obstructive pulmonary disease with a baseline FEV1 value of 37% of predicted. She follows with Dr. Mock in our office for the same. She was recently discharged in August 2017 for COPD exacerbation. She presented here to the emergency room again yesterday after being treated in the outpatient setting was steroids regarding her COPD by her PCP. She also is having complaints of chest pain. Troponins were negative. Her chest x-ray shows no evidence of acute pulmonary process. She did test positive for influenza A and was admitted for the same. T-max of 100.4. She was hypoxic at 86% O2 saturation on 2 L/m per nasal cannula. She is seen today in consultation on the selective care unit. She is awake and alert in no acute distress. She does have some pain on inhalation. She has a dry nonproductive cough. No chills or night sweats. She has some sore throat. She has been initiated on Tamiflu, IV Solu-Medrol, bronchodilators and empiric antibiotics in the form of azithromycin. The patient is seen again today 11/05/2017 in follow-up in the selective care unit. She is awake and alert in no acute distress. She is still having some swings in mood's between crying and laughing. She states she is breathing slightly better today as compared to yesterday but far from her baseline. She is dyspneic with minimal exertion. She continues with a dry nonproductive cough. No chills or night sweats. She remains afebrile. She is maintaining good O2 saturations in the 90s on 5 L/m per nasal cannula. White count 13.5. Hemoglobin 12.5. Creatinine 0.48. Patient was reevaluated today on 11/06/2017, continues to have intermittent cough wheezing shortness of breath. According to the patient she is not showing any improvement whatsoever. Her blood culture came back positive for staph hominis which is sensitive to all antibiotics except erythromycin, and usually this is a soft tissue type of infection related. And the patient does not have any soft tissue infection that could be appreciated clinically. I have started the patient on Rocephin, and I have initiated and infectious disease consultation on this patient. In the meantime the patient will remain on bronchodilators and steroids for her underlying COPD exacerbation, she is also on Tamiflu for influenza A infection On 11/07/2017 patient is reevaluated. Remains significantly dyspneic with any exertion and even at rest. Becomes short of breath even with normal conversation. Patient is having significant night sweats. Her cough is dry and nonproductive. Lung sounds positive for end expiratory wheezes, diminished overall. Afebrile, vital signs are stable, on 4 L per nasal cannula her O2 sat is 92%. She is currently on Rocephin, Tamiflu, nebulized treatments and IV Solu -Medrol. Blood cultures was positive for staph hominis, with susceptibility to ceftriaxone. On 11/08/2017 patient seen in follow-up. She is complaining of being very fatigued and tired, low energy level. Lung sounds are diminished, slightly better from yesterday's exam in terms of wheezing. Patient remains afebrile, currently on 4 L per nasal cannula with O2 sat at 93%. Not bringing up much sputum. Blood culture was positive for staph hominis, patient is currently covered with Rocephin and vancomycin. ID service is on. Follow-up blood culture from 11/06/2017 showed coagulase-negative staph. 2 other follow-up blood cultures after that showed no growth. Patient still complains of being very limited in terms of activity tolerance. She is frustrated with her slow progress. Today's lab work showed sodium of 139, potassium is 4.4, chloride was 89, carbon dioxide was 43, BUN was 19, creatinine 0.54. Yesterday the possibility of bronchoscopy was discussed with the patient, however patient remained very tight and wheezy, and the possibility of adverse outcome including intubation during the bronchoscopy was also discussed. Patient does not want to be intubated, overall she states she does feel slightly better despite the slow improvement. We'll continue with current medical treatment for now. We will obtain a chest x-ray today. On 11/09/2017 patient seen again in follow-up. She sits up in bed, awake, alert , denies any acute distress. She reports feeling better today, yesterday in the afternoon she was able to get up, take a shower, and ambulate within the room. Lung sounds are still positive for end expiratory wheezes but better air entry noted bilaterally. Still has a dry nonproductive cough. On 4 L per nasal cannula with O2 sat between 97 and 99%. Afebrile, vital signs are stable. Patient's follow-up blood cultures show negative growth after the initial 2 blood cultures from 11/03/2017 and 11/06/2017 positive for staph hominis and coagulase-negative staph, both specimens were thought to be contaminated. Patient remains on Rocephin, vancomycin has been discontinued per ID service. Chest x-ray from 11/08/2017 has been reviewed and showed no acute cardiopulmonary process. On 11/10/2017 patient seen in follow-up. She is seen up ambulating around the room, on 3 L of oxygen per nasal cannula, tolerating it very well. She reports significant improvement in her overall condition. Lung sounds reveal very minimal wheezes over left upper lobe posteriorly, no rhonchi or rales noted. She is afebrile, vital signs are stable, her FiO2 is being weaned, currently on 3 L per nasal cannula normally she wears 2 L. No new positive blood cultures, the blood culture positive for staph hominis and coagulase-negative staph are both thought to be contaminated. Patient is complaining of vaginal candidiasis , we'll give one-time dose of Diflucan 150 mg. From pulmonary standpoint patient is stable for discharge home today. We'll check with the ID service whether she needs to continue on outpatient course of antibiotics or if the Rocephin can be discontinued now. Objective - Vital Signs Vital signs: Vital Signs Temp 97.3 F L 11/10/17 01:27 Pulse 80 11/10/17 07:46 Resp 16 11/10/17 01:27 BP 126/75 11/10/17 01:27 Pulse Ox 99 11/10/17 07:46 Intake & Output 11/09/17 11/10/17 11/10/17 18:59 06:59 18:59 Intake Total 1924 1249 Balance 1924 1249 Intake: Oral 1924 1249 Other: Voiding Method Toilet # Voids 2 2 - Exam GENERAL EXAM: Frail, cachectic. Mood swings. HEAD: Normocephalic. EYES: Normal reaction of pupils, equal size. NOSE: Clear with pink turbinates. THROAT: No erythema or exudates. NECK: No masses, no JVD. CHEST: No chest wall deformity. LUNGS: Equal air entry with bilateral, minimal faint end expiratory wheezing over left upper lobe CVS: S1 and S2 normal with no audible murmur, regular rhythm. ABDOMEN: No hepatosplenomegaly, normal bowel sounds, no guarding or rigidity. SPINE: No scoliosis or deformity SKIN: No rashes CENTRAL NERVOUS SYSTEM: No focal deficits, tone is normal in all 4 extremities. EXTREMITIES: There is no peripheral edema. No clubbing, no cyanosis. Peripheral pulses are intact. - Labs CBC & Chem 7: 11/05/17 06:14 11/10/17 06:44 Labs: Abnormal Lab Results - Last 24 Hours (Table) 11/09/17 11/09/17 11/09/17 Range/Units 07:38 11:29 17:26 Chloride 92 L (98-107) mmol/L Carbon Dioxide 41 H* (22-30) mmol/L BUN 29 H (7-17) mg/dL Glucose (74-99) mg/dL POC Glucose (mg/dL) 134 H 153 H (75-99) mg/dL 11/09/17 11/10/17 11/10/17 Range/Units 20:44 06:44 07:06 Chloride 88 L (98-107) mmol/L Carbon Dioxide 46 H* (22-30) mmol/L BUN 26 H (7-17) mg/dL Glucose 113 H (74-99) mg/dL POC Glucose (mg/dL) 138 H 106 H (75-99) mg/dL Microbiology - Last 24 Hours (Table) 11/07/17 14:17 Blood Culture - Preliminary Blood No Growth after 48 hours 11/06/17 13:52 Blood Culture - Preliminary Blood No Growth after 72 hours 11/07/17 13:39 Blood Culture - Preliminary Blood No Growth after 48 hours Assessment and Plan Plan: Assessment: #1 Acute exacerbation of chronic obstructive pulmonary disease, oxygen dependent , FEV1 value of 37% of predicted, complicated by influenza A infection. #2 Acute on chronic hypoxic respiratory failure secondary to above. #3 History of chronic tobacco dependence. #4 History of metastatic breast cancer status post bilateral mastectomy. Remains on Arimidex. #5 Hypertension. Remains on amlodipine. #6 Anxiety/depression. Remains on Effexor. #7 History of Alysha syndrome. #8 acute staph hominis bacteremia, patient will be started on Rocephin and vancomycin, will ask for infectious disease evaluation, repeat blood cultures showed coagulase-negative staph, and other blood cultures were negative. On vancomycin has been discontinued, follow blood cultures show negative growth. Recommendation: Patient continues to improve, her activity tolerance and energy levels have also improved. Vital signs are stable, no acute events overnight. She is requesting to go home today. Stable for discharge home from pulmonary standpoint, on prednisone taper, her maintenance inhalers and nebulized treatments. We'll check with ID service regarding the antibiotics. Patient has completed a course of Tamiflu. Follow-up with Dr. Mock in the office in one week. I performed a history & physical examination of the patient and discussed their management with my nurse practitioner, Mere Ruth. I reviewed the nurse practitioner's note and agree with the documented findings and plan of care. Lung sounds are positive for minimal end expiratory wheezes over left lung. The findings and the impression was discussed with the patient. I attest to the documentation by the nurse practitioner. Time with Patient: Less than 30
[2017-11-10] MEDS: guaiFENesin 600 MG TABLET.ER PO SCH (08:53)
[2017-11-10] MEDS: cefTRIAXone IN SWFI 1,000 MG/10 ML SYRINGE IVP SCH (08:53)
[2017-11-10] MEDS: NYSTATIN 100,000 UNIT/ML SUSP 500,000 UNIT/5 ML CUP PO SCH (08:53)
[2017-11-10] MEDS: ANASTROZOLE 1 MG TAB PO SCH (08:53)
[2017-11-10] MEDS: VENLAFAXINE HCL ER 150 MG CAP PO SCH (08:53)
[2017-11-10] MEDS: CALCIUM CARB-VIT D 500MG-200UN 1 EACH TAB PO SCH (08:53)
[2017-11-10] MEDS: methylPREDNISolone SOD SUCCI 40 MG/ML 1 ML VIAL IV SCH (08:54)
[2017-11-10] MEDS: PANTOPRAZOLE 40 MG TABLET PO SCH (08:56)
[2017-11-10] MEDS ORDERED: FLUCONAZOLE 150 MG TAB PO SCH (09:00)
[2017-11-10 09:03] VITALS: BP 101/63; PULSE 72; TEMP 97.8
[2017-11-10 10:51] VITALS: BMI 22.8
[2017-11-10] MEDS: clonazePAM 1 MG TAB PO SCH (10:51)
--- NOTE | 2017-11-10 13:01 | P.DS ---
Providers Date of admission: 11/03/17 14:03 Expected date of discharge: 11/10/17 Attending physician: Flower Babb Consults: 11/03/17 14:03 Consult Physician Stat Consulting Provider: Litzy Kelly Consult Reason/Comments: Chest pain with multiple risk factors Do you want consulting provider notified?: Yes Consult Physician Stat Consulting Provider: Nisha Silva Consult Reason/Comments: COPD exacerbation Do you want consulting provider notified?: Yes 11/05/17 15:05 Consult Physician Urgent Consulting Provider: Malu Holland Consult Reason/Comments: ANTIBIOTICS FOR POSITIVE BLOOD CULTURES Do you want consulting provider notified?: Yes 11/06/17 09:16 Consult Physician Routine Consulting Provider: Malu Holland Consult Reason/Comments: positive blood culture Do you want consulting provider notified?: Yes 11/06/17 12:47 Consult Physician Routine Consulting Provider: Malu Holland Consult Reason/Comments: staph hominis bacteremia Do you want consulting provider notified?: Yes Primary care physician: [facility] Course: This is a 56-year-old female one of Dr. Alberts with a previous medical history significant for breast cancer with metastatic disease to the regular status post radiation therapy, history of COPD, hypertension and hypertensive cardio vascular disease, hyperlipidemia, ALLERGIC rhinitis, patient was in her usual state of health until about a week ago when she went and saw Dr. Alberts in the office and she did receive a Depo-Medrol as well as a Medrol Dosepak and Zithromax, patient was on her way down on the [place] and Medrol Dosepak yesterday when she developed to have severe sore throat associated with fever and chills and significant shortness breath she took her oxymeter was around 88% on 2 L nasal cannula, daughter came and checked on her and she told her to come to the ER today because of severe shortness of breath not able to move air in and out, despite the use of nebulized treatment at home and despite oxygen support and she had failed outpatient treatment. Patient was seen in the ER and she was started on IV antibiotic in the form of Zithromax 500 mg IV piggyback every 24 hours as well as Solu-Medrol 60 mg IV push every 6 hours, nebulized treatment in the form of DuoNeb 3 mg nebulization 4 times a day and Pulmicort milligrams nebulization twice every day, patient will have a flu swab done and she would be admitted to the hospital for COPD exacerbation she will be seen in consultation by Dr. Silva. 11/04: Today is feeling a bit tight, she isn't droplet isolation due to her influenza A, she was seen in consultation by pulmonary as well as cardiology, her blood culture showed gram-positive cocci in cluster, we will maintain the patient current antibiotic until the final identity of the organism. 11/05: Patient continued to require 5 L of oxygen at the time she uses 2 L at home patient still short of breath with conversation was not able to go to the bathroom due to shortness of breath and the orbital bedside commode for her. Patient is denying chest pain, nausea, vomiting, dumping, dizziness, lightheadedness or blurry vision. 11/06: Patient still requiring 5 L of oxygen but her saturation is ranging between 96 and 99 I discussed with the nursing staff current treatment plan and I discussed with the patient's family who are at the bedside including her mother brother and his current prognosis and stronger recommendation for smoking cessation including secondhand smoking when patient sees the hospital 11/07: Patient is tearful today and states she is not feeling well. She remains and droplet isolation for influenza. Blood culture staph hominis and coag- negative staph 11/08: Patient has been up to the bathroom and shower today. Her breathing status is improving. Her mood is much improved today from yesterday. Repeat chest x-ray has been ordered by pulmonary medicine. Solu-Medrol is at 60 mg every 6 hours and will be decreased to 40 mg daily. Anticipate possible discharge by tomorrow. 11/09: Patient is complaining of feeling very weak. Physical therapy evaluation will be added. She has completed her course of Tamiflu. Dr. Torrez is recommended no antibiotics at the time of discharge. Anticipate discharge home tomorrow. 11/10: Patient's breathing status is much improved from yesterday. She is anticipating discharge and has been cleared for discharge by Dr. Silva. Discharge diagnoses: 1. Acute respiratory insufficiency secondary to acute exacerbation of COPD and influenza. 2. Breast cancer with bilateral mastectomy right for primary breast cancer left for prophylactic reasons. 3. Hypertension and hypertensive cardiovascular disease. 4. Depression, recurrent. 5. Generalized anxiety disorder. 6. Alysha syndrome. 7. Gram-positive cocci bacteremia thought to be due to contamination. Discharge plan: Home Impression and plan of care have been directed as dictated by the signing physician. Arleen Gamez nurse practitioner acting as scribe for signing physician. Patient Condition at Discharge: Good Plan - Discharge Summary Discharge Rx Participant: No New Discharge Prescriptions: New predniSONE 10 mg PO DAILY 16 Days #40 tab Continue Budesonide-Formot 160-4.5 Mcg [Symbicort 160-4.5 Mcg Inhaler] 2 puff INHALATION RT-BID Anastrozole [Arimidex] 1 mg PO DAILY #30 tab Albuterol Inhaler [Ventolin Hfa Inhaler] 2 puff INHALATION RT-Q6H PRN PRN Reason: Shortness Of Breath Venlafaxine HCl [Effexor XR] 150 mg PO DAILY Omeprazole 20 mg PO DAILY clonazePAM [KlonoPIN] 1 mg PO TID amLODIPine [Norvasc] 5 mg PO BID Albuterol Nebulized [Ventolin Nebulized] 2.5 mg INHALATION RT-Q4H PRN PRN Reason: Shortness Of Breath guaiFENesin [Mucinex] 600 mg PO BID Calcium Carbonate/Vitamin D3 [Calcium 600-Vit D3 400 Tablet] 2 tab PO DAILY Melatonin 6 mg PO HS PRN tablet PRN Reason: Insomnia Discharge Medication List Budesonide-Formot 160-4.5 Mcg [Symbicort 160-4.5 Mcg Inhaler] 2 puff INHALATION RT-BID 03/28/14 [History] Anastrozole [Arimidex] 1 mg PO DAILY #30 tab 04/02/14 [Rx] Albuterol Inhaler [Ventolin Hfa Inhaler] 2 puff INHALATION RT-Q6H PRN 09/05/15 [ History] Omeprazole 20 mg PO DAILY 09/05/15 [History] Venlafaxine HCl [Effexor XR] 150 mg PO DAILY 09/05/15 [History] Albuterol Nebulized [Ventolin Nebulized] 2.5 mg INHALATION RT-Q4H PRN 08/12/17 [ History] Calcium Carbonate/Vitamin D3 [Calcium 600-Vit D3 400 Tablet] 2 tab PO DAILY [History] amLODIPine [Norvasc] 5 mg PO BID 08/12/17 [History] clonazePAM [KlonoPIN] 1 mg PO TID 08/12/17 [History] guaiFENesin [Mucinex] 600 mg PO BID 08/12/17 [History] Melatonin 6 mg PO HS PRN tablet 08/16/17 [Rx] predniSONE 10 mg PO DAILY 16 Days #40 tab 11/10/17 [Rx] Follow up Appointment(s)/Referral(s): Philip Azevedo MD [Primary Care Provider] - 1-2 days (Patient requesting to set own follow up appts) Mejia Mock DO [Doctor of Osteopathic Medicine] - 1 Week (Patient requesting to set own follow up appts) Patient Instructions/Handouts: Influenza (DC), COPD (Chronic Obstructive Pulmonary Disease) (DC)
--- NOTE | 2017-11-10 14:11 | PN ---
PROGRESS NOTE DATE OF SERVICE: 11/10/2017 REASON FOR FOLLOW UP: 1. Acute influenza. 2. Positive blood culture. INTERVAL HISTORY: The patient is seen on rounds this morning where the patient has been afebrile. She has been breathing more comfortably. Cough has decreased in intensity and admits to be random in nature. No chest pain, no abdominal pain, no diarrhea. PHYSICAL EXAMINATION: Blood pressure is 101/63 with a pulse of 72, temperature is 97.3, she is 98% in 2 L nasal cannula. General description is a middle-aged female up in the bed in no distress. RESPIRATORY SYSTEM: Unlabored breathing with decreased intensity of breath sounds, no wheeze. HEART: S1, S2. Regular rate and rhythm. ABDOMEN: Soft, no tenderness. LABS: BUN of 26, creatinine 0.58. Blood cultures 11/06 and 11/07 have been negative. DIAGNOSTIC IMPRESSION/PLAN: 1. Patient with positive blood culture with coag-negative Staph and Staph hominis likely contamination, repeat blood culture has been negative. No need for antibiotic therapy on discharge. 2. Patient with acute influenza adequately treated. 3. Patient with no clinical suspicion for pneumonia. Hence, will hold on any antibiotic on discharge. Plan of care were discussed with the nurse practitioner for the primary team. MMODL / IJN: [id number] /
== END 2017-11-10 12:35 | disposition home or self-care (01) | DRG 190 ==
LOC: EC 11:27 → 6SEL 14:03 → 3SUR 11-05 20:22
PROVIDERS: ADMIT Internal Medicine; ATTEND Internal Medicine
DX: J44.1 Chronic obstructive pulmonary disease with (acute) exacerbation (principal); J96.21 Acute and chronic respiratory failure with hypoxia; G90.2 Horner's syndrome; I45.81 Long QT syndrome; Z99.81 Dependence on supplemental oxygen; I11.9 Hypertensive heart disease without heart failure; B37.3 Candidiasis of vulva and vagina; J10.1 Influenza due to other identified influenza virus with other respiratory manifestations; J44.0 Chronic obstructive pulmonary disease with (acute) lower respiratory infection; E78.5 Hyperlipidemia, unspecified; F32.9 Major depressive disorder, single episode, unspecified; F41.1 Generalized anxiety disorder; K21.9 Gastro-esophageal reflux disease without esophagitis; I89.0 Lymphedema, not elsewhere classified; R07.89 Other chest pain; R53.81 Other malaise; J32.9 Chronic sinusitis, unspecified; Z79.51 Long term (current) use of inhaled steroids; Z79.811 Long term (current) use of aromatase inhibitors; Z79.899 Other long term (current) drug therapy; Z88.1 Allergy status to other antibiotic agents; Z88.8 Allergy status to other drugs, medicaments and biological substances; Z85.3 Personal history of malignant neoplasm of breast; Z85.29 Personal history of malignant neoplasm of other respiratory and intrathoracic organs; Z90.13 Acquired absence of bilateral breasts and nipples; Z87.891 Personal history of nicotine dependence
CPT/HCPCS: 36415; 71046; 80048; 80053; 81003; 82550; 82553; 84484; 85025; 85379; 85610; 85730; 87040; 87077; 87186; 87502; 93005; 94640; 94760; 96361; 96365; 96366; 96375; 96376; 99285

== ENCOUNTER 2018-01-03 15:41 | Emergency (ER) | payer MEDICARE ==
[2018-01-03 15:44] VITALS: TEMP 97.4
[2018-01-03] MEDS ORDERED: SODIUM CHLORIDE 0.9% 1,000 ML IV STA ×2 (16:32→17:59)
[2018-01-03] MEDS ORDERED: FAMOTIDINE 20 MG/2 ML VIAL IV STA (16:32)
[2018-01-03] MEDS ORDERED: diphenhydrAMINE 50 MG/ML 1 ML VIAL IVP STA (16:32)
[2018-01-03] MEDS ORDERED: IPRATROPIUM-ALBUTEROL 3 ML NEB INHALATION STA (16:35)
[2018-01-03] MEDS ORDERED: methylPREDNISolone SOD SUCCI 125 MG/2 ML VIAL IV STA (16:35)
[2018-01-03] MEDS ORDERED: PROMETHAZINE INJ 25 MG in SODIUM CHLORIDE 0.9% 50 ML IVPB STA (16:36)
--- NOTE | 2018-01-03 16:36 | ED ---
General Adult HPI - General Chief complaint: Nausea/Vomiting/Diarrhea Stated complaint: SOB/vomiting Time Seen by Provider: 01/03/18 16:15 Source: patient, RN notes reviewed Mode of arrival: wheelchair Limitations: no limitations - History of Present Illness Initial comments: Patient 57-year-old female presents to the emergency room today with chief complaint of nausea vomiting with cough congestion over the last 4 days. Patient states symptoms started 4 days ago. States had similar symptoms to this in the past. She states she is "regular" here to the hospital. She admits that she is been vomiting some white nasal drainage. Patient does admit that she has history of COPD he is on oxygen at home. She has mid that she did breathing treatment earlier today felt somewhat better. Patient denies any other complaints symptoms currently. Patient denies any recent fever, chills, shortness of breath, chest pain, back pain, abdominal pain, nausea or vomiting, numbness or tingling, dysuria or hematuria, constipation or diarrhea, headaches or visual changes, or any other complaints. - Related Data Home Medications Medication Instructions Recorded Confirmed Budesonide-Formot 160-4.5 Mcg 2 puff INHALATION RT-BID 03/28/14 01/03/18 [Symbicort 160-4.5 Mcg Inhaler] Albuterol Inhaler [Ventolin Hfa 2 puff INHALATION RT-Q6H PRN 09/05/15 01/03/18 Inhaler] Omeprazole 20 mg PO DAILY 09/05/15 01/03/18 Venlafaxine HCl [Effexor XR] 150 mg PO DAILY 09/05/15 01/03/18 Albuterol Nebulized [Ventolin 2.5 mg INHALATION RT-Q4H PRN 08/12/17 01/03/18 Nebulized] Calcium Carbonate/Vitamin D3 2 tab PO DAILY 08/12/17 01/03/18 [Calcium 600-Vit D3 400 Tablet] amLODIPine [Norvasc] 5 mg PO BID 08/12/17 01/03/18 clonazePAM [KlonoPIN] 1 mg PO TID 08/12/17 01/03/18 guaiFENesin [Mucinex] 600 mg PO BID 08/12/17 01/03/18 Previous Rx's Medication Instructions Recorded Anastrozole [Arimidex] 1 mg PO DAILY #30 tab 07/15/14 predniSONE 10 mg PO DAILY 16 Days #40 tab 11/10/17 Allergies Allergy/AdvReac Type Severity Reaction Status Date / Time levofloxacin Allergy Rash/Hives Verified 01/03/18 16:19 ondansetron HCl AdvReac Severe Increased Verified 01/03/18 16:19 [From Zofran (as QT interval hydrochloride)] prochlorperazine edisylate AdvReac Severe Increased Verified 01/03/18 16:19 [From Compazine] QT interval prochlorperazine maleate AdvReac Severe Increased Verified 01/03/18 16:19 [From Compazine] QT Interval Review of Systems ROS Statement: Those systems with pertinent positive or pertinent negative responses have been documented in the HPI. ROS Other: All systems not noted in ROS Statement are negative. Past Medical History Past Medical History: Cancer, COPD, GERD/Reflux, GI Bleed, Hypertension, Pneumonia Additional Past Medical History / Comment(s): COPD, baseline FEV1 of 37% of predicted consistent with severe COPD, metastatic breast cancer, hypertension, cyclic vomiting syndrome, lymphedema of the right upper extremity related to previous breast surgery, chronic sinus disease, history of QT prolongation secondary to antibiotic use. 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 History of Any Multi-Drug Resistant Organisms: None Reported Past Surgical History: Breast Surgery, Orthopedic Surgery Additional Past Surgical History / Comment(s): Cone biopsy at age 22 years of age, multiple colonoscopies and EGDs. Thoracoscopy with minimal thoracotomy and pleural biopsy, D&C.. bilateral mastectomy and lymph nodeectomy, LT and RT THUMB TRIGGER FINGER SX, LT KNEE ARTHROSOCPY X2 , LT ACL REPAIR Past Anesthesia/Blood Transfusion Reactions: Postoperative Nausea & Vomiting ( PONV) Past Psychological History: Anxiety, Depression Smoking Status: Former smoker Past Alcohol Use History: Rare Past Drug Use History: None Reported - Past Family History Father Family Medical History: Cancer Additional Family Medical History / Comment(s): Patient reports her father of lung cancer at age 59. Brother(s) Additional Family Medical History / Comment(s): Patient has to penicillin major medical problems. Patient has 2 sisters with no major medical problems. Patient has one daughter with no major medical problems. Mother Additional Family Medical History / Comment(s): MOM IS HEALTHY AT AGE 80 General Exam - General Exam Comments Initial Comments: General: The patient is awake and alert, in no distress, and does not appear acutely ill. Eye: Pupils are equal, round and reactive to light, extra-ocular movements are intact. No nystagmus. There is normal conjunctiva bilaterally. No signs of icterus. Ears, nose, mouth and throat: There are moist mucous membranes and no oral lesions. Neck: The neck is supple, there is no tenderness or JVD. Cardiovascular: There is a regular rate and rhythm. No murmur, rub or gallop is appreciated. Respiratory: Lungs are clear to auscultation, respirations are non-labored, breath sounds are equal. No wheezes, stridor, rales, or rhonchi. Gastrointestinal: Abdomen soft on palpation. Mild tenderness epigastric and right side of the abdomen. No rebound tenderness. No guarding. No CVA tenderness. Musculoskeletal: Normal ROM, no tenderness. Strength 5/5. Sensation intact. Pulses equal bilaterally 2+. Neurological: A&O x 3. CN II-XII intact, There are no obvious motor or sensory deficits. Coordination appears grossly intact. Speech is normal. Skin: Skin is warm and dry and no rashes or lesions are noted. Psychiatric: Cooperative, appropriate mood & affect, normal judgment. Limitations: no limitations Course Vital Signs 01/03/18 01/03/18 01/03/18 15:42 16:49 16:54 Temperature 97.4 F L Pulse Rate 99 69 86 Respiratory 22 18 Rate Blood Pressure 184/116 173/105 O2 Sat by Pulse 92 L 98 Oximetry 01/03/18 01/03/18 01/03/18 16:56 17:14 19:10 Temperature Pulse Rate 72 92 90 Respiratory 18 18 Rate Blood Pressure 176/97 174/108 O2 Sat by Pulse 98 97 Oximetry EKG Findings - EKG Comments: EKG Findings:: EKG performed at 1658: Shows normal sinus rhythm with prolonged QT. Ventricular rate 82 beats per minute. [place] interval 140. QRS 90. QT/QTc 414/43. No acute changes. Medical Decision Making - Medical Decision Making Patient reexamined at this time shows no signs of distress. She does not that she felt much better here in emergency room. Her daughter said bedside states that she's had multiple episodes similar to this in the past for she's had some nausea and vomiting has come to the hospital. She states that she had her seen by psych services once she thought that it could be something related. Patient at this time is doing well she does admit that she's feeling better after IV fluids. Labs been reviewed mildly elevated white count. Similar to previous findings on previous labs visits here to the ER. Patient's given dose steroids for the emergency room for her COPD. Was given breathing treatment states this is feeling better her lungs are clear at this time. Patient's remaining blood work has been reviewed. Physical complaints discharged home. She is advised follow-up family doctor tomorrow returning if symptoms increase or worsen. - Lab Data Result diagrams: 01/03/18 16:46 01/03/18 16:46 Lab Results 01/03/18 01/03/18 01/03/18 Range/Units 16:46 16:46 16:46 WBC 13.6 H (3.8-10.6) k/uL RBC 4.73 (3.80-5.40) m/uL Hgb 14.8 (11.4-16.0) gm/dL Hct 42.3 (34.0-46.0) % MCV 89.2 D (80.0-100.0) fL MCH 31.3 (25.0-35.0) pg MCHC 35.1 (31.0-37.0) g/dL RDW 13.8 (11.5-15.5) % Plt Count 363 (150-450) k/uL Neutrophils % 90 % Lymphocytes % 6 % Monocytes % 3 % Eosinophils % 1 % Basophils % 0 % Neutrophils # 12.2 H (1.3-7.7) k/uL Lymphocytes # 0.8 L (1.0-4.8) k/uL Monocytes # 0.4 (0-1.0) k/uL Eosinophils # 0.1 (0-0.7) k/uL Basophils # 0.0 (0-0.2) k/uL PT (9.0-12.0) sec INR (<1.2) APTT (22.0-30.0) sec Sodium 140 (137-145) mmol/L Potassium 3.4 L (3.5-5.1) mmol/L Chloride 95 L (98-107) mmol/L Carbon Dioxide 34 H (22-30) mmol/L Anion Gap 11 mmol/L BUN 10 (7-17) mg/dL Creatinine 0.43 L (0.52-1.04) mg/dL Est GFR (CKD-EPI)AfAm >90 (>60 ml/min/1.73 sqM) Est GFR (CKD-EPI)NonAf >90 (>60 ml/min/1.73 sqM) Glucose 154 H (74-99) mg/dL Calcium 9.5 (8.4-10.2) mg/dL Total Bilirubin 0.6 (0.2-1.3) mg/dL AST 31 (14-36) U/L ALT 29 (9-52) U/L Alkaline Phosphatase 84 (38-126) U/L Total Creatine Kinase 129 (30-135) U/L CK-MB (CK-2) 1.1 (0.0-2.4) ng/mL CK-MB (CK-2) Rel Index 0.9 Troponin I <0.012 (0.000-0.034) ng/mL Total Protein 6.9 (6.3-8.2) g/dL Albumin 4.3 (3.5-5.0) g/dL Amylase 36 (30-110) U/L Lipase 37 (23-300) U/L Urine Color Urine Appearance (Clear) Urine pH (5.0-8.0) Ur Specific Clarkson (1.001-1.035) Urine Protein (Negative) Urine Glucose (UA) (Negative) Urine Ketones (Negative) Urine Blood (Negative) Urine Nitrite (Negative) Urine Bilirubin (Negative) Urine Urobilinogen (<2.0) mg/dL Ur Leukocyte Esterase (Negative) Urine RBC (0-5) /hpf Urine WBC (0-5) /hpf Ur Squamous Epith Cells (0-4) /hpf Urine Mucus (None) /hpf 01/03/18 01/03/18 Range/Units 16:46 17:11 WBC (3.8-10.6) k/uL RBC (3.80-5.40) m/uL Hgb (11.4-16.0) gm/dL Hct (34.0-46.0) % MCV (80.0-100.0) fL MCH (25.0-35.0) pg MCHC (31.0-37.0) g/dL RDW (11.5-15.5) % Plt Count (150-450) k/uL Neutrophils % % Lymphocytes % % Monocytes % % Eosinophils % % Basophils % % Neutrophils # (1.3-7.7) k/uL Lymphocytes # (1.0-4.8) k/uL Monocytes # (0-1.0) k/uL Eosinophils # (0-0.7) k/uL Basophils # (0-0.2) k/uL PT 10.2 (9.0-12.0) sec INR 1.0 (<1.2) APTT 25.3 (22.0-30.0) sec Sodium (137-145) mmol/L Potassium (3.5-5.1) mmol/L Chloride (98-107) mmol/L Carbon Dioxide (22-30) mmol/L Anion Gap mmol/L BUN (7-17) mg/dL Creatinine (0.52-1.04) mg/dL Est GFR (CKD-EPI)AfAm (>60 ml/min/1.73 sqM) Est GFR (CKD-EPI)NonAf (>60 ml/min/1.73 sqM) Glucose (74-99) mg/dL Calcium (8.4-10.2) mg/dL Total Bilirubin (0.2-1.3) mg/dL AST (14-36) U/L ALT (9-52) U/L Alkaline Phosphatase (38-126) U/L Total Creatine Kinase (30-135) U/L CK-MB (CK-2) (0.0-2.4) ng/mL CK-MB (CK-2) Rel Index Troponin I (0.000-0.034) ng/mL Total Protein (6.3-8.2) g/dL Albumin (3.5-5.0) g/dL Amylase (30-110) U/L Lipase (23-300) U/L Urine Color Yellow Urine Appearance Clear (Clear) Urine pH 6.5 (5.0-8.0) Ur Specific Clarkson 1.015 (1.001-1.035) Urine Protein Negative (Negative) Urine Glucose (UA) 1+ H (Negative) Urine Ketones Negative (Negative) Urine Blood Trace H (Negative) Urine Nitrite Negative (Negative) Urine Bilirubin Negative (Negative) Urine Urobilinogen <2.0 (<2.0) mg/dL Ur Leukocyte Esterase Negative (Negative) Urine RBC 2 (0-5) /hpf Urine WBC 1 (0-5) /hpf Ur Squamous Epith Cells 2 (0-4) /hpf Urine Mucus Rare H (None) /hpf Disposition Clinical Impression: Nausea vomiting and diarrhea Disposition: HOME SELF-CARE Condition: Good Instructions: Acute Nausea and Vomiting (ED) Additional Instructions: Please use medication as discussed. Please follow-up with family doctor in the next 2 days of symptoms have not improved. Please return to emergency room if the symptoms increase or worsen or for any other concerns. Is patient prescribed a controlled substance at discharge?: No Referrals: Sanjay Alberts DO [Primary Care Provider] - 1-2 days Time of Disposition: 19:14
[2018-01-03 16:53] LABS: Basophils % (A) 0 %; Eosinophils # (A) 0.1 k/uL (0-0.7); Eosinophils % (A) 1 %; HCT 42.3 % (34.0-46.0); HGB 14.8 gm/dL (11.4-16.0); Lymphocytes # (A) 0.8 k/uL (1.0-4.8); Lymphocytes % (A) 6 %; MCH 31.3 pg (25.0-35.0); MCHC 35.1 g/dL (31.0-37.0); Mean Platelet Volume 6.2; Monocytes # (A) 0.4 k/uL (0-1.0); Monocytes % (A) 3 %; Neutrophils # (A) 12.2 k/uL (1.3-7.7); Neutrophils % (A) 90 %; Platelet Count 363 k/uL (150-450); RBC 4.73 m/uL (3.80-5.40); RDW 13.8 % (11.5-15.5); WBC 13.6 k/uL (3.8-10.6)
[2018-01-03 16:56] LABS: MCV 89.2 fL (80.0-100.0)
[2018-01-03 17:02] LABS: Partial Thromboplastin Time 25.3 sec (22.0-30.0); Prothrombin Time 10.2 sec (9.0-12.0)
[2018-01-03 17:03] LABS: ALT 29 U/L (9-52); AST 31 U/L (14-36); Albumin 4.3 g/dL (3.5-5.0); Alkaline Phosphatase 84 U/L (38-126); Amylase 36 U/L (30-110); Anion Gap 11 mmol/L; Blood Urea Nitrogen 10 mg/dL (7-17); Calcium 9.5 mg/dL (8.4-10.2); Carbon Dioxide 34 mmol/L (22-30); Chloride 95 mmol/L (98-107); Glucose 154 mg/dL (74-99); Lipase 37 U/L (23-300); Potassium 3.4 mmol/L (3.5-5.1); Sodium 140 mmol/L (137-145); Total Bilirubin 0.6 mg/dL (0.2-1.3); Total Protein 6.9 g/dL (6.3-8.2)
[2018-01-03 17:15] LABS: Creatine Kinase 129 U/L (30-135)
[2018-01-03 17:26] LABS: Appearance,Urine Clear (Clear); Bilirubin,Urine Negative (Negative); Blood,Urine Trace (Negative); Color,Urine Yellow; Glucose,Urine (UA) 1+ (Negative); Ketones,Urine Negative (Negative); Leukocyte Esterase,Urine Negative (Negative); Mucus,Urine Rare /hpf; Nitrite,Urine Negative (Negative); PH, Urine 6.5 (5.0-8.0); Protein,Urine Negative (Negative); RBC,Urine 2 /hpf (0-5); Specific Gravity,Urine 1.015 (1.001-1.035); Squamous Epithelial Cell,Urine 2 /hpf (0-4); Urobilinogen,Urine <2.0 mg/dL (<2.0); WBC,Urine 1 /hpf (0-5)
[2018-01-03 17:27] LABS: Creatine Kinase MB 1.1 ng/mL (0.0-2.4); Troponin I <0.012 ng/mL (0.000-0.034)
--- NOTE | 2018-01-03 17:40 | XR ---
EXAMINATION TYPE: XR chest 2V DATE OF EXAM: 01/03/2018 COMPARISON: 11/08/2017 HISTORY: Shortness of breath TECHNIQUE: Frontal and lateral views of the chest are obtained. FINDINGS: Increased density right middle lobe may reflect developing infiltrate. Correlate clinically and prog ress studies are recommended. Heart size is stable. Mediastinal structures are stable and grossly unremarkable. No evidence for hilar prominence. Degenerative changes dorsal spine. IMPRESSION: 1. Increased density right middle lobe may reflect developing infiltrate. Correlate clinically and pr ogress studies are recommended.
[2018-01-03] MEDS ORDERED: LORazepam 2 MG/ML INJ IV STA (18:39)
[2018-01-03 19:50] VITALS: BP 138/103; PULSE 96; RESP 20
== END 2018-01-03 19:53 | disposition home or self-care (01) ==
LOC: EC 15:41
DX: R11.2 Nausea with vomiting, unspecified (principal); R19.7 Diarrhea, unspecified; R05 Cough; R09.89 Other specified symptoms and signs involving the circulatory and respiratory systems; D72.829 Elevated white blood cell count, unspecified; J44.9 Chronic obstructive pulmonary disease, unspecified; K21.9 Gastro-esophageal reflux disease without esophagitis; I10 Essential (primary) hypertension; F32.9 Major depressive disorder, single episode, unspecified; F41.9 Anxiety disorder, unspecified; Z85.3 Personal history of malignant neoplasm of breast; Z87.891 Personal history of nicotine dependence; Z79.51 Long term (current) use of inhaled steroids; Z79.899 Other long term (current) drug therapy; Z88.1 Allergy status to other antibiotic agents; Z88.8 Allergy status to other drugs, medicaments and biological substances; Z90.13 Acquired absence of bilateral breasts and nipples
CPT/HCPCS: 99284; 96374; 96375 ×4; 96361; 36415; 94640; 93005; 80053; 82150; 82550; 82553; 83690; 84484; 85025; 85610; 85730; 81001; 71046; J2060; J1200; J2550; J2930

== ENCOUNTER → 2018-05-08 | Outpatient (CLI) | payer MEDICARE ==
--- NOTE | 2018-05-08 19:17 | CT ---
EXAMINATION TYPE: CT ChestAbdPelvis w con DATE OF EXAM: 05/08/2018 INDICATION: Breast cancer, suspected METS COMPARISON: 05/16/2017 CT DLP: 983 mGycm CONTRAST: Performed with Oral Contrast and with IV Contrast, patient injected with 100 mL of Isovue 300. TECHNIQUE: Axial images at 5 mm thick sections. Reconstructed images in the coronal plane. Delayed images through the kidneys. FINDINGS: CT CHEST: Portion of the thyroid visualized is normal. Just inferior to the right lobe thyroid is a 1.2 cm slig htly hypodense nodule. Parathyroid adenoma could be considered. This is poorly visualized in the luz marina nal plane images Bilateral breast prostheses are present. No suspicious lung nodules or focal infiltrates are present. No enlarged mediastinal or hilar adenopathy is evident. The ascending aorta diameter at the level of the main pulmonary artery is 3.2 cm. The main pulmonary artery diameter at the bifurcation is 3.[address] ABDOMEN: Liver: Normal Spleen: Normal Pancreas: Pancreatic duct is somewhat prominent measuring 4 mm at the body. This should be 2 mm or le ss at this level. No obstructing mass at the head of the pancreas is identified. Consider ERCP. Adrenal glands: The adrenal glands are normal. Gallbladder: Normal Kidneys: No masses are evident. No hydronephrosis is present. 1.2 cm peripelvic cysts at the inferi or pole right kidney may be present. Delayed images were obtained through the kidneys, which remain unremarkable. Aorta: Vascular calcification is within the aorta. Inferior vena cava: Normal. CT PELVIS: Loops of bowel within the abdomen and pelvis are normal. There are loops of bowel which are incom pletely distended or lack oral contrast limiting their evaluation. Appendix: Normal as visualized. Urinary bladder: Normal. Genitourinary structures: Uterus appears normal. There is prominence of the bilateral adnexa with ill -defined slightly hypodense areas. Right ovary measures 3.5 cm. Left ovary measures 3.9 cm. There is a 3.3 cm mass on the left ovary. Additional evaluation with ultrasound is recommended. Osseous structures: No suspicious lytic or sclerotic lesions. IMPRESSIONS: 1. New subthyroid nodule. This could be some supraclavicular adenopathy. Consider ultrasound of the t hyroid for additional evaluation. PET/CT may be required for additional evaluation. 2. Prominence of the pancreatic duct developing. Consider ERCP for additional evaluation. 3. Stable appearing peripelvic cyst inferior pole right kidney. 4. Increasing prominence of the bilateral ovaries. Pelvic ultrasound is recommended for additional ev aluation.
--- NOTE | 2018-05-08 20:49 | NM ---
EXAMINATION TYPE: NM bone scan whole body DATE OF EXAM: 05/08/2018 COMPARISON: Same day CT chest abdomen and pelvis study. HISTORY: Newly diagnosed breast cancer. Delayed whole-body scanning was performed following the injection of 26.5 mCi Tc 99m MDP. Images acq uired 3 hours post injection. FINDINGS: There is no suspicious scintigraphic increased radiotracer uptake to suggest osseous metastatic disea se to the bone. Slight S-shaped scoliosis of the spine is redemonstrated. Mild uptake right first met atarsophalangeal joint is presumed related to degenerative change related to underlying bunion some i ncreased uptake right lower cervical spine is present products of degenerative change at this level. Similar mild increased uptake at facet arthropathy lumbosacral junction is noted. IMPRESSION: No scintigraphic evidence of osseous metastatic disease to the bone.
== END | disposition home or self-care (01) ==
LOC: RADNMMAIN 11:13
PROVIDERS: ATTEND Internal Medicine Hematology & Oncology
DX: C50.919 Malignant neoplasm of unspecified site of unspecified female breast (principal); M54.9 Dorsalgia, unspecified
CPT/HCPCS: 71260; 74177; 78306; A9503; Q9967

== ENCOUNTER → 2018-05-26 | Outpatient (CLI) | payer MEDICARE ==
--- NOTE | 2018-05-26 14:35 | US ---
EXAMINATION TYPE: US thyroid st tissue head/neck DATE OF EXAM: 05/26/2018 COMPARISON: CT chest abdomen and pelvis May 08, 2018 CLINICAL HISTORY: E04.1 Thyroid nodule. f/u to ct scan GLAND SIZE: Right Lobe: 3.9 x 1.5 x 1.3 cm Overall Parenchyma: homogenous Left Lobe: 4.0 x 1.6 x 1.2 cm Overall Parenchyma: homogeneous Isthmus Thickness: 0.3 cm NODULES RIGHT: # of nodules measured on right: 0 LEFT: # of nodules measured on left: 0 ISTHMUS: # of nodules measured in the isthmus: 0 Bilateral neck scanned, no evidence of lymphadenopathy. Hypoechoic area seen inf to right thyroid measuring 1.2cm in transverse not well seen in sag view. IMPRESSION: Normal-sized thyroid redemonstrated. No suspicious thyroid nodules are seen on ultrasound images save d. Area marked by technologist towards end of study is felt to reflect portion of esophagus. Area of concern inferior aspect left thyroid lobe on CT is felt to be volume averaging without definitive nod ule.
--- NOTE | 2018-05-26 14:36 | US ---
EXAMINATION TYPE: US abdomen complete DATE OF EXAM: 05/26/2018 COMPARISON: CT chest abdomen and pelvis May 08, 2018 CLINICAL HISTORY: N83.20 Ovarian mass, R19.09. F/U to ct scan EXAM MEASUREMENTS: Liver Length: 13.8 cm Gallbladder Wall: 0.2 cm CBD: 0.5 cm Spleen: 7.0 cm Right Kidney: 9.8 x 4.3 x 4.7 cm Left Kidney: 9.2 x 5.3 x5.1 cm Pancreas: wnl Liver: wnl Gallbladder: wnl Evidence for sonographic Gar's sign: No CBD: wnl Spleen: wnl Right Kidney: Simple appearing cyst LP measuring 1.3 x 1.0 x 1.2cm. Left Kidney: wnl Upper IVC: wnl Abd Aorta: wnl The visualized liver is homogenous. The intrahepatic portion of the IVC and visualized abdominal aor ta are within normal limits. There is no evidence of shadowing mobile cholelithiasis. Common bile d uct is unremarkable. The visualized portions of the pancreas are homogenous. The spleen is unremark able. Kidneys are symmetric and free of hydronephrosis. No suspicious renal lesions are seen. IMPRESSION: No suspicious intra-abdominal finding identified.
--- NOTE | 2018-05-26 14:50 | US ---
EXAMINATION TYPE: US pelvic complete DATE OF EXAM: 05/26/2018 COMPARISON: CT abdomen pelvis May 08, 2018 CLINICAL HISTORY: N83.20 Ovarian mass, R19.09. F/U to abnormal ct scan TECHNIQUE: Transvaginal (TV) and Transabdominal (TA) . Transabdominal sonographic images of the pel vis were acquired. Transvaginal sonographic images were medically necessary to better assess the fol lowing anatomy: Ovaries EXAM MEASUREMENTS: Uterus: 6.5 x 2.9 x 3.7 cm Endometrial Stripe: 0.5 cm Right Ovary: 3.7 x 3.1 x3.2 cm Left Ovary: 3.4 x 3.5 x 3.6 cm 1. Uterus: Anteverted wnl 2. Endometrium: wnl 3. Right Ovary: Heterogenous lobulated irregular boarders. 4. Left Ovary: Heterogenous with shadowing seen 5. Bilateral Adnexa: Heterogenous area seen measuring 3.4 x 3.5 x 3.6 cm left ovary vs. mass. 6. Posterior cul-de-sac: wnl IMPRESSION: Bilateral heterogeneous solid ovarian masses are redemonstrated worrisome for neoplasm. A dvise gynecology oncology referral and appropriate tumor marker last correlation.
== END | disposition home or self-care (01) ==
LOC: RADUSWWP 12:26
PROVIDERS: ATTEND Family Medicine
DX: N83.9 Noninflammatory disorder of ovary, fallopian tube and broad ligament, unspecified (principal); R19.09 Other intra-abdominal and pelvic swelling, mass and lump; E04.1 Nontoxic single thyroid nodule
CPT/HCPCS: 76536; 76700; 76830; 76856

== ENCOUNTER 2018-06-28 08:12 | Day surgery (SDC) | payer MEDICARE ==
[2018-06-27 10:36] VITALS: BMI 22.4
[~2018-06-28 08:12] MED LIST: LACTATED RINGERS 1,000 ML IV SCH; LIDOCAINE 1% 20 ML VIAL (10MG/ML) FOR IV START INTRADERMA PRN
[2018-06-28 09:04] VITALS: TEMP 97.6
[2018-06-28] MEDS ORDERED: PROPOFOL 10 MG/ML 20 ML VIAL IV ONE (09:35)
[2018-06-28] MEDS ORDERED: LIDOCAINE 1% INJ 10MG/ML (20 ML MDV) ONE (09:35)
--- NOTE | 2018-06-28 09:58 | P.PCN ---
Date of Procedure: 06/28/18 Procedure(s) Performed: BRIEF HISTORY: Patient is a 57-year-old pleasant white female, scheduled for an elective colonoscopy as a part of variation of lower abdominal pain and change in bowel habits for the last 3 months duration. PROCEDURE PERFORMED: Colonoscopy with biopsy and snare polypectomy. PREOPERATIVE DIAGNOSIS: Lower abdominal pain and change in bowel habits. IV sedation per Anesthesia. PROCEDURE: After informed consent was obtained, the patient, was brought into the endoscopy unit. IV sedation was administered by Anesthesia under continuous monitoring. Digital rectal examination was normal. Initially the Olympus CF- 160 flexible video colonoscope was then inserted in the rectum, gradually advanced into the cecum without any difficulty. Careful examination was performed as the scope was gradually being withdrawn. Ileocecal valve and the appendiceal orifice were visualized and appeared normal. Prep was excellent. Mucosa of the cecum, ascending colon, transverse colon, appeared normal. In the descending colon there was a 2-3 mm sessile polyp removed by cold biopsy. In the sigmoid colon there was a 5 mm polyp that was removed by snare polypectomy. Rest of the descending colon, sigmoid colon, and rectum appeared normal. Retroflexion was performed in the rectum and grade 2 internal hemorrhoids were seen. The patient tolerated the procedure well. IMPRESSION: 2-3 mm ascending colon polyp status post removal by cold biopsy 5 mm sigmoid colon polyp status post snare polypectomy Grade 2 internal hemorrhoids. RECOMMENDATIONS: Findings of this examination were discussed with the patient as well as a family. She was advised to follow with the biopsy results. If the biopsy shows an adenoma she can have a repeat colonoscopy in 5 years.
[2018-06-28 11:43] VITALS: BP 160/90
[2018-06-28] MEDS ORDERED: ALBUTEROL NEBULIZED 2.5 MG/3 ML INHALATION STA (11:57)
[2018-06-28] MEDS ORDERED: PROMETHAZINE INJ 25 MG/ML 1 ML VIAL IVPB ONE (12:08)
[2018-06-28 12:29] VITALS: RESP 20
[2018-06-28 12:34] VITALS: PULSE 66
== END 2018-06-28 13:18 | disposition home or self-care (01) ==
LOC: ORWHC2ENDO 08:12
PROVIDERS: ATTEND Internal Medicine Gastroenterology
DX: D12.5 Benign neoplasm of sigmoid colon (principal); D12.2 Benign neoplasm of ascending colon; K64.1 Second degree hemorrhoids; I10 Essential (primary) hypertension; J44.9 Chronic obstructive pulmonary disease, unspecified; K21.9 Gastro-esophageal reflux disease without esophagitis; K92.2 Gastrointestinal hemorrhage, unspecified; C79.81 Secondary malignant neoplasm of breast; Z87.891 Personal history of nicotine dependence; Z79.811 Long term (current) use of aromatase inhibitors; Z79.899 Other long term (current) drug therapy
CPT/HCPCS: 94640; 88305; 45385; 45380; J2550; J2001; J2704

== ENCOUNTER 2018-08-04 11:33 | Emergency (ER) | payer MEDICARE ==
[2018-08-04] MEDS ORDERED: SODIUM CHLORIDE 0.9% 1,000 ML IV STA (12:40)
[2018-08-04] MEDS ORDERED: METOCLOPRAMIDE 5 MG/ML 2 ML VIAL IVP STA (12:41)
--- NOTE | 2018-08-04 12:48 | ED ---
General Adult HPI - General Chief complaint: Shortness of Breath Stated complaint: Nausea/vomiting/bad side of medication Time Seen by Provider: 08/04/18 12:28 Source: patient, RN notes reviewed Mode of arrival: wheelchair Limitations: no limitations - History of Present Illness Initial comments: Patient's 57-year-old female status post hysterectomy times one week, presented to the emergency room today with chief complaint of symptoms of nausea vomiting and feeling short of breath. She does admit that symptoms started yesterday feeling nauseated. States today she's had increased nausea and vomiting. Denies a signs of blood. Doesn't that she feels short of breath. Admits to history of COPD. Is unsure if this is related. She does use oxygen 2 L at home. Patient states she's currently on Lovenox shots. Patient denies any other complaints at this time. Patient denies any recent fever, chills, chest pain, back pain, dysuria or hematuria, constipation or diarrhea, headaches or visual changes, or any other complaints. - Related Data Home Medications Medication Instructions Recorded Confirmed Budesonide-Formot 160-4.5 Mcg 2 puff INHALATION RT-BID 03/28/14 08/04/18 [Symbicort 160-4.5 Mcg Inhaler] Albuterol Inhaler [Ventolin Hfa 2 puff INHALATION RT-Q6H PRN 09/05/15 08/04/18 Inhaler] Omeprazole 20 mg PO BID 09/05/15 08/04/18 Venlafaxine HCl [Effexor XR] 150 mg PO DAILY 09/05/15 08/04/18 Albuterol Nebulized [Ventolin 2.5 mg INHALATION RT-Q4H PRN 08/12/17 08/04/18 Nebulized] Calcium Carbonate/Vitamin D3 2 tab PO DAILY 08/12/17 08/04/18 [Calcium 600-Vit D3 400 Tablet] amLODIPine [Norvasc] 5 mg PO BID 08/12/17 08/04/18 clonazePAM [KlonoPIN] 1 mg PO TID 08/12/17 08/04/18 guaiFENesin [Mucinex] 600 mg PO BID 08/12/17 08/04/18 Loratadine 10 mg PO DAILY 06/27/18 08/04/18 Tiotropium 18 Mcg/Puff [Spiriva] 2 puff INHALATION RT-DAILY 06/27/18 08/04/18 ARIPiprazole [Abilify] 2 mg PO HS 08/04/18 08/04/18 Enoxaparin [Lovenox] 40 mg SQ DAILY 08/04/18 08/04/18 Ibuprofen [Motrin] 600 mg PO Q8HR PRN 08/04/18 08/04/18 oxyCODONE HCL [Roxicodone] 5 mg PO Q4H PRN 08/04/18 08/04/18 Previous Rx's Medication Instructions Recorded Anastrozole [Arimidex] 1 mg PO DAILY #30 tab 04/02/14 Metoclopramide HCl [Reglan] 10 mg PO Q6HR PRN #15 tab 08/04/18 Allergies Allergy/AdvReac Type Severity Reaction Status Date / Time levofloxacin Allergy Rash/Hives Verified 08/04/18 12:50 ondansetron HCl AdvReac Severe Increased Verified 08/04/18 12:50 [From Zofran (as QT interval hydrochloride)] prochlorperazine edisylate AdvReac Severe Increased Verified 08/04/18 12:50 [From Compazine] QT interval prochlorperazine maleate AdvReac Severe Increased Verified 08/04/18 12:50 [From Compazine] QT Interval Review of Systems ROS Statement: Those systems with pertinent positive or pertinent negative responses have been documented in the HPI. ROS Other: All systems not noted in ROS Statement are negative. Past Medical History Past Medical History: Cancer, COPD, GERD/Reflux, GI Bleed, Hypertension, Pneumonia Additional Past Medical History / Comment(s): COPD, baseline FEV1 of 37% of predicted consistent with severe COPD, metastatic breast cancer, hypertension, cyclic vomiting syndrome, lymphedema of the right upper extremity related to previous breast surgery, chronic sinus disease, history of QT prolongation secondary to antibiotic use. 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 History of Any Multi-Drug Resistant Organisms: None Reported Past Surgical History: Hysterectomy Additional Past Surgical History / Comment(s): Cone biopsy at age 22 years of age, multiple colonoscopies and EGDs. Thoracoscopy with minimal thoracotomy and pleural biopsy, D&C.. bilateral mastectomy and lymph nodeectomy, LT and RT THUMB TRIGGER FINGER SX, LT KNEE ARTHROSOCPY X2 , LT ACL REPAIR Past Anesthesia/Blood Transfusion Reactions: Postoperative Nausea & Vomiting ( PONV) Past Psychological History: Anxiety, Depression Smoking Status: Former smoker - Past Family History Father Family Medical History: Cancer Additional Family Medical History / Comment(s): Patient reports her father of lung cancer at age 59. Brother(s) Additional Family Medical History / Comment(s): Patient has to penicillin major medical problems. Patient has 2 sisters with no major medical problems. Patient has one daughter with no major medical problems. Mother Additional Family Medical History / Comment(s): MOM IS HEALTHY AT AGE 80 General Exam - General Exam Comments Initial Comments: General: The patient is awake and alert, in no distress, and does not appear acutely ill. Eye: Pupils are equal, round and reactive to light. Extra-ocular movements are intact. No nystagmus. There is normal conjunctiva bilaterally. No signs of icterus. Ears, nose, mouth and throat: There are moist mucous membranes and no oral lesions. Neck: The neck is supple, there is no tenderness or JVD. Cardiovascular: There is a regular rate and rhythm. No murmur, rub or gallop is appreciated. Respiratory: Lungs are clear to auscultation, respirations are non-labored, breath sounds are equal. No wheezes, stridor, rales, or rhonchi. Gastrointestinal: Surgical incision is midline. Healing well with no redness or erythema or drainage. Abdomen is soft on palpation. Mildly tender around the surgical site. No rebound, guarding or CVA tenderness. Musculoskeletal: Normal ROM, no tenderness. Sensation intact. Strength 5/5. Pulses equal bilaterally 2+. Neurological: A&O x 3. CN II-XII intact, There are no obvious motor or sensory deficits. Coordination appears grossly intact. Speech is normal. Skin: Skin is warm and dry and no rashes or lesions are noted. Psychiatric: Cooperative, appropriate mood & affect, normal judgment. Limitations: no limitations Course Vital Signs 08/04/18 08/04/18 08/04/18 12:22 12:49 14:50 Temperature 98.3 F Pulse Rate 86 60 Respiratory 16 20 18 Rate Blood Pressure 167/106 183/111 O2 Sat by Pulse 96 98 Oximetry 08/04/18 08/04/18 15:41 16:12 Temperature Pulse Rate 62 74 Respiratory 18 18 Rate Blood Pressure 184/121 167/94 O2 Sat by Pulse 98 98 Oximetry Medical Decision Making - Medical Decision Making Patient reexamined at this time does admit to improving here in emergency room. She is resting comfortably. Patient's labs been reviewed does show mildly elevated liver enzymes. Patient's CT the chest negative for any evidence of PE. CT the abdomen and pelvis reviewed shows possible enteritis. Does show 2 soft tissue nodules. No other acute abnormalities. Results were discussed with the patient. Patient doing well at this time will be discharged home with nausea medication. She is advised to follow-up with the family doctor. - Lab Data Result diagrams: 08/04/18 12:45 08/04/18 12:45 Lab Results 08/04/18 08/04/18 08/04/18 Range/Units 12:45 12:45 12:45 WBC 8.3 (3.8-10.6) k/uL RBC 4.64 (3.80-5.40) m/uL Hgb 13.9 (11.4-16.0) gm/dL Hct 42.6 (34.0-46.0) % MCV 92.0 (80.0-100.0) fL MCH 29.9 (25.0-35.0) pg MCHC 32.5 (31.0-37.0) g/dL RDW 13.6 (11.5-15.5) % Plt Count 454 H (150-450) k/uL Neutrophils % 82 % Lymphocytes % 11 % Monocytes % 4 % Eosinophils % 2 % Basophils % 0 % Neutrophils # 6.8 (1.3-7.7) k/uL Lymphocytes # 0.9 L (1.0-4.8) k/uL Monocytes # 0.3 (0-1.0) k/uL Eosinophils # 0.2 (0-0.7) k/uL Basophils # 0.0 (0-0.2) k/uL PT (9.0-12.0) sec INR (<1.2) APTT (22.0-30.0) sec Sodium 138 (137-145) mmol/L Potassium 4.0 (3.5-5.1) mmol/L Chloride 99 (98-107) mmol/L Carbon Dioxide 29 (22-30) mmol/L Anion Gap 10 mmol/L BUN 10 (7-17) mg/dL Creatinine 0.40 L (0.52-1.04) mg/dL Est GFR (CKD-EPI)AfAm >90 (>60 ml/min/1.73 sqM) Est GFR (CKD-EPI)NonAf >90 (>60 ml/min/1.73 sqM) Glucose 150 H (74-99) mg/dL Calcium 9.8 (8.4-10.2) mg/dL Total Bilirubin 0.5 (0.2-1.3) mg/dL AST 117 H (14-36) U/L ALT 123 H (9-52) U/L Alkaline Phosphatase 113 (38-126) U/L Total Creatine Kinase 82 (30-135) U/L CK-MB (CK-2) 1.2 (0.0-2.4) ng/mL CK-MB (CK-2) Rel Index 1.5 Troponin I <0.012 (0.000-0.034) ng/mL Total Protein 7.3 (6.3-8.2) g/dL Albumin 4.2 (3.5-5.0) g/dL Urine Color Urine Appearance (Clear) Urine pH (5.0-8.0) Ur Specific [place] (1.001-1.035) Urine Protein (Negative) Urine Glucose (UA) (Negative) Urine Ketones (Negative) Urine Blood (Negative) Urine Nitrite (Negative) Urine Bilirubin (Negative) Urine Urobilinogen (<2.0) mg/dL Ur Leukocyte Esterase (Negative) 08/04/18 08/04/18 Range/Units 12:45 14:01 WBC (3.8-10.6) k/uL RBC (3.80-5.40) m/uL Hgb (11.4-16.0) gm/dL Hct (34.0-46.0) % MCV (80.0-100.0) fL MCH (25.0-35.0) pg MCHC (31.0-37.0) g/dL RDW (11.5-15.5) % Plt Count (150-450) k/uL Neutrophils % % Lymphocytes % % Monocytes % % Eosinophils % % Basophils % % Neutrophils # (1.3-7.7) k/uL Lymphocytes # (1.0-4.8) k/uL Monocytes # (0-1.0) k/uL Eosinophils # (0-0.7) k/uL Basophils # (0-0.2) k/uL PT 9.9 (9.0-12.0) sec INR 1.0 (<1.2) APTT 22.7 (22.0-30.0) sec Sodium (137-145) mmol/L Potassium (3.5-5.1) mmol/L Chloride (98-107) mmol/L Carbon Dioxide (22-30) mmol/L Anion Gap mmol/L BUN (7-17) mg/dL Creatinine (0.52-1.04) mg/dL Est GFR (CKD-EPI)AfAm (>60 ml/min/1.73 sqM) Est GFR (CKD-EPI)NonAf (>60 ml/min/1.73 sqM) Glucose (74-99) mg/dL Calcium (8.4-10.2) mg/dL Total Bilirubin (0.2-1.3) mg/dL AST (14-36) U/L ALT (9-52) U/L Alkaline Phosphatase (38-126) U/L Total Creatine Kinase (30-135) U/L CK-MB (CK-2) (0.0-2.4) ng/mL CK-MB (CK-2) Rel Index Troponin I (0.000-0.034) ng/mL Total Protein (6.3-8.2) g/dL Albumin (3.5-5.0) g/dL Urine Color Light Yellow Urine Appearance Clear (Clear) Urine pH 8.0 (5.0-8.0) Ur Specific [place] 1.023 (1.001-1.035) Urine Protein Negative (Negative) Urine Glucose (UA) Trace H (Negative) Urine Ketones 1+ H (Negative) Urine Blood Negative (Negative) Urine Nitrite Negative (Negative) Urine Bilirubin Negative (Negative) Urine Urobilinogen <2.0 (<2.0) mg/dL Ur Leukocyte Esterase Negative (Negative) Disposition Clinical Impression: Nausea & vomiting Disposition: HOME SELF-CARE Condition: Good Instructions: Acute Nausea and Vomiting (ED) Additional Instructions: Please use medication as discussed. Please follow-up with family doctor in the next 2 days of symptoms have not improved. Please return to emergency room if the symptoms increase or worsen or for any other concerns. Prescriptions: Metoclopramide HCl [Reglan] 10 mg PO Q6HR PRN #15 tab PRN Reason: Nausea Is patient prescribed a controlled substance at d/c from ED?: No Referrals: Sanjay Alberts DO [Primary Care Provider] - 1-2 days Time of Disposition: 16:22
[2018-08-04 13:12] LABS: Basophils % (A) 0 %; Eosinophils # (A) 0.2 k/uL (0-0.7); Eosinophils % (A) 2 %; HCT 42.6 % (34.0-46.0); HGB 13.9 gm/dL (11.4-16.0); Lymphocytes # (A) 0.9 k/uL (1.0-4.8); Lymphocytes % (A) 11 %; MCH 29.9 pg (25.0-35.0); MCHC 32.5 g/dL (31.0-37.0); Mean Platelet Volume 6.4; Monocytes # (A) 0.3 k/uL (0-1.0); Monocytes % (A) 4 %; Neutrophils # (A) 6.8 k/uL (1.3-7.7); Neutrophils % (A) 82 %; Platelet Count 454 k/uL (150-450); RBC 4.64 m/uL (3.80-5.40); RDW 13.6 % (11.5-15.5); WBC 8.3 k/uL (3.8-10.6)
[2018-08-04 13:27] LABS: ALT 123 U/L (9-52); AST 117 U/L (14-36); Albumin 4.2 g/dL (3.5-5.0); Alkaline Phosphatase 113 U/L (38-126); Anion Gap 10 mmol/L; Blood Urea Nitrogen 10 mg/dL (7-17); Calcium 9.8 mg/dL (8.4-10.2); Carbon Dioxide 29 mmol/L (22-30); Chloride 99 mmol/L (98-107); Glucose 150 mg/dL (74-99); Sodium 138 mmol/L (137-145); Total Bilirubin 0.5 mg/dL (0.2-1.3); Total Protein 7.3 g/dL (6.3-8.2)
[2018-08-04 13:32] LABS: Partial Thromboplastin Time 22.7 sec (22.0-30.0); Prothrombin Time 9.9 sec (9.0-12.0)
[2018-08-04 13:42] LABS: Creatine Kinase 82 U/L (30-135)
[2018-08-04 13:56] LABS: Creatine Kinase MB 1.2 ng/mL (0.0-2.4); Troponin I <0.012 ng/mL (0.000-0.034)
--- NOTE | 2018-08-04 14:10 | CT ---
EXAMINATION TYPE: CT abdomen pelvis w con DATE OF EXAM: 08/04/2018 HISTORY: SOB, Nausea, Vomiting, One week post op hysterectomy CT DLP: 680.8mGycm Automated Exposure Control for Dose Reduction was Utilized. CONTRAST: CT scan of the abdomen and pelvis is performed without oral but with IV Contrast, patient injected wi th 100 ml mL of Isovue 370. COMPARISON: CT chest abdomen pelvis May 08, 2018 FINDINGS: LUNG BASES: Please refer to same day CTA chest for complete details of lung bases. LIVER/GB: Tiny hypodense lesion right hepatic lobe axial image 18 is too small to further characteriz e but presumed benign and stable. PANCREAS: No significant abnormality is seen. SPLEEN: No significant abnormality is seen. ADRENALS: No significant abnormality is seen. KIDNEYS: There is symmetric cortical medullary uptake and excretion without hydronephrosis seen bilat erally bladder is felt within normal limits in the midline of the anterior pelvis. Stable 1.0 cm cent ral simple appearing parapelvic cyst right kidney coronal image 38. BOWEL: Evaluation bowel is suboptimal secondary to lack of enteric contrast. There is no suspicious s mall or large bowel dilatation. There is moderate wall thickening involving the right colon with mild to moderate wall thickening extending through the transverse colon into the proximal one half of the left colon. There is mild wall thickening involving the proximal to mid sigmoid colon in the left pe lvis axial image 60 for reference. UTERUS/ADNEXA: Uterus is surgically absent. There is small amount of free fluid right pelvis axial im age 68, nonspecific finding. LYMPH NODES: No greater than 1cm abdominal or pelvic lymph nodes are appreciated. OSSEOUS STRUCTURES: No significant abnormality is seen. OTHER: New vertical scar overlies the lower anterior abdominal wall extending into the upper pelvis c oronal image 15, horizontal component noted over pelvis axial image 66. There is moderate calcified plaque of the infrarenal abdominal aorta extending into pelvic branch ves sels. There is stable 8 mm left mid abdominal soft tissue nodule axial image 36 with new adjacent 4 mm nodu le seen axial image 37. Metastatic disease is not excluded. IMPRESSION: Correlate for new multifocal colitis as detailed above. Other findings as noted above.
--- NOTE | 2018-08-04 14:13 | CT ---
EXAMINATION TYPE: CT angio chest DATE OF EXAM: 08/04/2018 COMPARISON: HISTORY: Nausea, Vomiting, One week post op surgical CT DLP: 680.8 mGycm CONTRAST: CT chest with contrast and 3D reconstruction with MIP imaging is performed with IV Contrast, patient injected with 100 ml mL of Isovue 370. Contrast-enhanced CT of the chest was performed through the course of the pulmonary arteries with tiffani g and mediastinal window settings submitted. 3D reconstruction with MIP imaging was also performed. PULMONARY ARTERIES: The pulmonary arteries and their major tributaries are patent. I do not see ritesh dence for sizable filling defect to suggest pulmonary embolic process. LUNGS: The lungs are clear and free of infiltrate. Chronic postinflammatory change right middle lobe is again redemonstrated. Right basilar pleural thickening is stable. No evidence for atelectasis. N o pulmonary nodule or mass is detected. No pleural effusion. MEDIASTINUM: Thoracic aorta is of normal caliber,however, evaluation is limited given timing of the contrast bolus. If there is concern for thoracic aortic pathology consider SYED. Correlate clinicall y . The heart is not enlarged. No evidence for mediastinal mass. No mediastinal lymph nodes greater than 1cm. HILAR STRUCTURES: No evidence for mass. No hilar lymph nodes greater than 1 cm. UPPER ABDOMEN: No significant abnormality is seen. IMPRESSION: 1. No evidence for Pulmonary embolism at this time.
[2018-08-04 14:18] LABS: Appearance,Urine Clear (Clear); Bilirubin,Urine Negative (Negative); Blood,Urine Negative (Negative); Color,Urine Light Yellow; Glucose,Urine (UA) Trace (Negative); Ketones,Urine 1+ (Negative); Leukocyte Esterase,Urine Negative (Negative); Nitrite,Urine Negative (Negative); Protein,Urine Negative (Negative); Specific Gravity,Urine 1.023 (1.001-1.035); Urobilinogen,Urine <2.0 mg/dL (<2.0)
[2018-08-04] MEDS ORDERED: LORazepam 2 MG/ML INJ IV STA ×2 (14:29→15:28)
[2018-08-04] MEDS ORDERED: SODIUM CHLORIDE 0.9% 500 ML 500 ML IV STA (15:28)
[2018-08-04] MEDS ORDERED: diphenhydrAMINE 50 MG CAP PO STA (15:28)
[2018-08-04] MEDS ORDERED: hydrALAZINE HCL 20 MG/ML 1 ML VIAL IVP STA (15:28)
[2018-08-04 16:37] VITALS: BP 175/94; PULSE 78; RESP 16; TEMP 98
== END 2018-08-04 16:40 | disposition home or self-care (01) ==
LOC: EC 11:33
DX: R11.2 Nausea with vomiting, unspecified (principal); R74.8 Abnormal levels of other serum enzymes; M79.89 Other specified soft tissue disorders; R06.02 Shortness of breath; J44.9 Chronic obstructive pulmonary disease, unspecified; I10 Essential (primary) hypertension; K21.9 Gastro-esophageal reflux disease without esophagitis; F32.9 Major depressive disorder, single episode, unspecified; F41.9 Anxiety disorder, unspecified; Z87.891 Personal history of nicotine dependence; Z88.1 Allergy status to other antibiotic agents; Z88.8 Allergy status to other drugs, medicaments and biological substances; Z79.01 Long term (current) use of anticoagulants; Z79.51 Long term (current) use of inhaled steroids; Z79.899 Other long term (current) drug therapy; Z80.1 Family history of malignant neoplasm of trachea, bronchus and lung; Z90.710 Acquired absence of both cervix and uterus; Z99.81 Dependence on supplemental oxygen; Z85.3 Personal history of malignant neoplasm of breast; Z90.13 Acquired absence of bilateral breasts and nipples
CPT/HCPCS: 36415; 93005; 80053; 82550; 82553; 84484; 85025; 85610; 85730; 81003; 71275; 74177; 99285; 96374; 96375 ×2; 96376; 96361 ×2; J2060; J0360; J2765; Q9967

== ENCOUNTER 2018-08-26 23:10 | Inpatient (IN) | payer MEDICARE ==
[2018-08-26] MEDS ORDERED: methylPREDNISolone SOD SUCCI 125 MG/2 ML VIAL IV STA (23:32)
[2018-08-26] MEDS ORDERED: ALBUTEROL NEBULIZED 2.5 MG/3 ML INHALATION STA (23:32)
[2018-08-26] MEDS ORDERED: IPRATROPIUM 0.5 MG/2.5 ML NEBU INHALATION STA (23:32)
[2018-08-26] MEDS ORDERED: SODIUM CHLORIDE 0.9% 500 ML 500 ML IV STA (23:32)
--- NOTE | 2018-08-26 23:35 | ED ---
General Adult HPI - General Chief complaint: Shortness of Breath Stated complaint: HARITHA Time Seen by Provider: 08/26/18 23:22 Source: patient, family, RN notes reviewed, old records reviewed Mode of arrival: wheelchair Limitations: no limitations - History of Present Illness Initial comments: 57-year-old female history of metastatic breast cancer and COPD presenting with cough and dyspnea. Patient states her symptoms have been progressive over the past several days. She is coughing up yellow green sputum. Denies fever, states her temperature at home was 99F. Patient does report chest pain which is worse with cough, this is lower anterior chest pain. Patient is currently on Lovenox. Denies lower extremity pain or swelling. Denies abdominal pain nausea vomiting. She does report URI symptoms. She is currently following with [facility], she is on oral chemotherapy, last dose was Tuesday of this week which is 5 days prior to evaluation. - Related Data Home Medications Medication Instructions Recorded Confirmed Budesonide-Formot 160-4.5 Mcg 2 puff INHALATION RT-BID 03/28/14 08/04/18 [Symbicort 160-4.5 Mcg Inhaler] Albuterol Inhaler [Ventolin Hfa 2 puff INHALATION RT-Q6H PRN 09/05/15 08/04/18 Inhaler] Omeprazole 20 mg PO BID 09/05/15 08/04/18 Venlafaxine HCl [Effexor XR] 150 mg PO DAILY 09/05/15 08/04/18 Albuterol Nebulized [Ventolin 2.5 mg INHALATION RT-Q4H PRN 08/12/17 08/04/18 Nebulized] Calcium Carbonate/Vitamin D3 2 tab PO DAILY 08/12/17 08/04/18 [Calcium 600-Vit D3 400 Tablet] amLODIPine [Norvasc] 5 mg PO BID 08/12/17 08/04/18 clonazePAM [KlonoPIN] 1 mg PO TID 08/12/17 08/04/18 guaiFENesin [Mucinex] 600 mg PO BID 08/12/17 08/04/18 Loratadine 10 mg PO DAILY 06/27/18 08/04/18 Tiotropium 18 Mcg/Puff [Spiriva] 2 puff INHALATION RT-DAILY 06/27/18 08/04/18 ARIPiprazole [Abilify] 2 mg PO HS 08/04/18 08/04/18 Enoxaparin [Lovenox] 40 mg SQ DAILY 08/04/18 08/04/18 Ibuprofen [Motrin] 600 mg PO Q8HR PRN 08/04/18 08/04/18 oxyCODONE HCL [Roxicodone] 5 mg PO Q4H PRN 08/04/18 08/04/18 Previous Rx's Medication Instructions Recorded Anastrozole [Arimidex] 1 mg PO DAILY #30 tab 04/02/14 Metoclopramide HCl [Reglan] 10 mg PO Q6HR PRN #15 tab 08/04/18 Allergies Allergy/AdvReac Type Severity Reaction Status Date / Time levofloxacin Allergy Rash/Hives Verified 08/26/18 23:16 ondansetron HCl AdvReac Severe Increased Verified 08/26/18 23:16 [From Zofran (as QT interval hydrochloride)] prochlorperazine edisylate AdvReac Severe Increased Verified 08/26/18 23:16 [From Compazine] QT interval prochlorperazine maleate AdvReac Severe Increased Verified 08/26/18 23:16 [From Compazine] QT Interval Review of Systems ROS Statement: Those systems with pertinent positive or pertinent negative responses have been documented in the HPI. ROS Other: All systems not noted in ROS Statement are negative. Past Medical History Past Medical History: Cancer, COPD, GERD/Reflux, GI Bleed, Hypertension, Pneumonia Additional Past Medical History / Comment(s): COPD, baseline FEV1 of 37% of predicted consistent with severe COPD, metastatic breast cancer, hypertension, cyclic vomiting syndrome, lymphedema of the right upper extremity related to previous breast surgery, chronic sinus disease, history of QT prolongation secondary to antibiotic use. 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 History of Any Multi-Drug Resistant Organisms: None Reported Past Surgical History: Hysterectomy Additional Past Surgical History / Comment(s): Cone biopsy at age 22 years of age, multiple colonoscopies and EGDs. Thoracoscopy with minimal thoracotomy and pleural biopsy, D&C.. bilateral mastectomy and lymph nodeectomy, LT and RT THUMB TRIGGER FINGER SX, LT KNEE ARTHROSOCPY X2 , LT ACL REPAIR Past Anesthesia/Blood Transfusion Reactions: Postoperative Nausea & Vomiting ( PONV) Past Psychological History: Anxiety, Depression Smoking Status: Former smoker - Past Family History Father Family Medical History: Cancer Additional Family Medical History / Comment(s): Patient reports her father of lung cancer at age 59. Brother(s) Additional Family Medical History / Comment(s): Patient has to penicillin major medical problems. Patient has 2 sisters with no major medical problems. Patient has one daughter with no major medical problems. Mother Additional Family Medical History / Comment(s): MOM IS HEALTHY AT AGE 80 General Exam Limitations: no limitations General appearance: alert, in no apparent distress Head exam: Present: atraumatic, normocephalic Eye exam: Present: normal appearance, PERRL ENT exam: Present: mucous membranes dry Respiratory exam: Present: respiratory distress, wheezes, rhonchi, decreased breath sounds Cardiovascular Exam: Present: regular rate, normal rhythm GI/Abdominal exam: Present: soft, other (Ecchymosis, midline surgical scar). Absent: distended, tenderness, guarding Extremities exam: Present: normal inspection, normal capillary refill. Absent: pedal edema, calf tenderness Neurological exam: Present: alert, oriented X3, CN II-XII intact. Absent: motor sensory deficit Psychiatric exam: Present: normal affect, normal mood Skin exam: Present: warm, dry, intact. Absent: cyanosis, diaphoretic Course Vital Signs 08/26/18 08/26/18 08/27/18 23:12 23:46 00:10 Temperature 98.2 F Pulse Rate 90 89 98 Respiratory 20 Rate Blood Pressure 127/81 O2 Sat by Pulse 93 L Oximetry 08/27/18 01:02 Temperature Pulse Rate 81 Respiratory 18 Rate Blood Pressure 122/87 O2 Sat by Pulse 94 L Oximetry EKG Findings - EKG Comments: EKG Findings:: EKG: Normal sinus rhythm, left axis deviation, artifact in the lateral precordium, no definitive signs of ischemia, rate of 74, ND interval 124 , QRS duration 74, QTC 441 Medical Decision Making - Medical Decision Making 57-year-old female with history of COPD presenting with worsening cough and dyspnea. Chest x-ray obtained, does show some chronic scarring, no definitive new infiltrate. Patient has normal white blood cell count, stable hemoglobin, normal CMP. On reevaluation patient remains dyspneic. She will be admitted for further treatment of COPD exacerbation. - Lab Data Result diagrams: 08/26/18 23:40 08/26/18 23:40 Lab Results 08/26/18 08/26/18 08/26/18 Range/Units 23:40 23:40 23:40 WBC 7.5 (3.8-10.6) k/uL RBC 4.25 (3.80-5.40) m/uL Hgb 12.6 (11.4-16.0) gm/dL Hct 38.7 (34.0-46.0) % MCV 91.1 (80.0-100.0) fL MCH 29.7 (25.0-35.0) pg MCHC 32.6 (31.0-37.0) g/dL RDW 13.5 (11.5-15.5) % Plt Count 316 (150-450) k/uL Neutrophils % 85 % Lymphocytes % 8 % Monocytes % 3 % Eosinophils % 3 % Basophils % 0 % Neutrophils # 6.4 (1.3-7.7) k/uL Lymphocytes # 0.6 L (1.0-4.8) k/uL Monocytes # 0.2 (0-1.0) k/uL Eosinophils # 0.2 (0-0.7) k/uL Basophils # 0.0 (0-0.2) k/uL PT (9.0-12.0) sec INR (<1.2) APTT (22.0-30.0) sec Sodium 136 L (137-145) mmol/L Potassium 3.6 (3.5-5.1) mmol/L Chloride 97 L (98-107) mmol/L Carbon Dioxide 29 (22-30) mmol/L Anion Gap 10 mmol/L BUN 12 (7-17) mg/dL Creatinine 0.45 L (0.52-1.04) mg/dL Est GFR (CKD-EPI)AfAm >90 (>60 ml/min/1.73 sqM) Est GFR (CKD-EPI)NonAf >90 (>60 ml/min/1.73 sqM) Glucose 148 H (74-99) mg/dL Calcium 9.3 (8.4-10.2) mg/dL Magnesium 1.9 (1.6-2.3) mg/dL Total Bilirubin 0.3 (0.2-1.3) mg/dL AST 29 (14-36) U/L ALT 46 (9-52) U/L Alkaline Phosphatase 88 (38-126) U/L Total Creatine Kinase 224 H (30-135) U/L CK-MB (CK-2) 1.5 (0.0-2.4) ng/mL CK-MB (CK-2) Rel Index 0.7 Troponin I <0.012 (0.000-0.034) ng/mL NT-Pro-B Natriuret Pep pg/mL Total Protein 6.9 (6.3-8.2) g/dL Albumin 4.1 (3.5-5.0) g/dL 08/26/18 08/26/18 Range/Units 23:40 23:40 WBC (3.8-10.6) k/uL RBC (3.80-5.40) m/uL Hgb (11.4-16.0) gm/dL Hct (34.0-46.0) % MCV (80.0-100.0) fL MCH (25.0-35.0) pg MCHC (31.0-37.0) g/dL RDW (11.5-15.5) % Plt Count (150-450) k/uL Neutrophils % % Lymphocytes % % Monocytes % % Eosinophils % % Basophils % % Neutrophils # (1.3-7.7) k/uL Lymphocytes # (1.0-4.8) k/uL Monocytes # (0-1.0) k/uL Eosinophils # (0-0.7) k/uL Basophils # (0-0.2) k/uL PT 9.5 (9.0-12.0) sec INR 0.9 (<1.2) APTT 26.5 (22.0-30.0) sec Sodium (137-145) mmol/L Potassium (3.5-5.1) mmol/L Chloride (98-107) mmol/L Carbon Dioxide (22-30) mmol/L Anion Gap mmol/L BUN (7-17) mg/dL Creatinine (0.52-1.04) mg/dL Est GFR (CKD-EPI)AfAm (>60 ml/min/1.73 sqM) Est GFR (CKD-EPI)NonAf (>60 ml/min/1.73 sqM) Glucose (74-99) mg/dL Calcium (8.4-10.2) mg/dL Magnesium (1.6-2.3) mg/dL Total Bilirubin (0.2-1.3) mg/dL AST (14-36) U/L ALT (9-52) U/L Alkaline Phosphatase (38-126) U/L Total Creatine Kinase (30-135) U/L CK-MB (CK-2) (0.0-2.4) ng/mL CK-MB (CK-2) Rel Index Troponin I (0.000-0.034) ng/mL NT-Pro-B Natriuret Pep 107 pg/mL Total Protein (6.3-8.2) g/dL Albumin (3.5-5.0) g/dL Disposition Clinical Impression: Acute exacerbation of chronic obstructive airways disease Disposition: ADMITTED IP TO THIS HOSP Condition: Stable Is patient prescribed a controlled substance at d/c from ED?: No Referrals: Sanjay Alberts DO [Primary Care Provider] - 1-2 days Decision to Admit Reason: Admit from EC Decision Date: 08/27/18 Decision Time: 01:50
[2018-08-26 23:56] LABS: Basophils % (A) 0 %; Eosinophils # (A) 0.2 k/uL (0-0.7); Eosinophils % (A) 3 %; HCT 38.7 % (34.0-46.0); HGB 12.6 gm/dL (11.4-16.0); Lymphocytes # (A) 0.6 k/uL (1.0-4.8); Lymphocytes % (A) 8 %; MCH 29.7 pg (25.0-35.0); MCHC 32.6 g/dL (31.0-37.0); MCV 91.1 fL (80.0-100.0); Mean Platelet Volume 6.2; Monocytes # (A) 0.2 k/uL (0-1.0); Monocytes % (A) 3 %; Neutrophils # (A) 6.4 k/uL (1.3-7.7); Neutrophils % (A) 85 %; Platelet Count 316 k/uL (150-450); RBC 4.25 m/uL (3.80-5.40); RDW 13.5 % (11.5-15.5); WBC 7.5 k/uL (3.8-10.6)
[2018-08-27 00:05] LABS: INR 0.9 (<1.2); Partial Thromboplastin Time 26.5 sec (22.0-30.0); Prothrombin Time 9.5 sec (9.0-12.0)
[2018-08-27 00:08] LABS: ALT 46 U/L (9-52); AST 29 U/L (14-36); Albumin 4.1 g/dL (3.5-5.0); Alkaline Phosphatase 88 U/L (38-126); Anion Gap 10 mmol/L; Blood Urea Nitrogen 12 mg/dL (7-17); Calcium 9.3 mg/dL (8.4-10.2); Carbon Dioxide 29 mmol/L (22-30); Chloride 97 mmol/L (98-107); Glucose 148 mg/dL (74-99); Magnesium 1.9 mg/dL (1.6-2.3); Potassium 3.6 mmol/L (3.5-5.1); Sodium 136 mmol/L (137-145); Total Bilirubin 0.3 mg/dL (0.2-1.3); Total Protein 6.9 g/dL (6.3-8.2)
[2018-08-27 00:29] LABS: Creatine Kinase 224 U/L (30-135)
--- NOTE | 2018-08-27 00:32 | XR ---
EXAMINATION TYPE: XR chest 2V DATE OF EXAM: 08/27/2018 COMPARISON: 03/27/2018 HISTORY: Difficult breathing TECHNIQUE: Frontal and lateral views of the chest are obtained. FINDINGS: Heart and mediastinum are normal. There is blunting of right costophrenic angle. There is some increased density in the right middle lobe consistent with a minimal infiltrate. The left lung i s clear. There are chest leads. There are clips from previous right breast surgery. IMPRESSION: There is some chronic right middle lobe density consistent with scarring unchanged. Smal l right pleural effusion or pleural diaphragmatic scarring unchanged. Normal heart.
[2018-08-27 00:42] LABS: Creatine Kinase MB 1.5 ng/mL (0.0-2.4); Troponin I <0.012 ng/mL (0.000-0.034)
[2018-08-27] MEDS ORDERED: IPRATROPIUM-ALBUTEROL 3 ML NEB INHALATION PRN (01:51)
[2018-08-27] MEDS ORDERED: ALBUTEROL NEBULIZED 2.5 MG/3 ML INHALATION PRN (01:53)
[2018-08-27] MEDS: methylPREDNISolone SOD SUCCI 125 MG/2 ML VIAL IV SCH ×4 (06:03→23:51)
[2018-08-27 07:12] LABS: Glucose,Whole Blood 184 mg/dL (75-99)
[2018-08-27] MEDS ORDERED: METOCLOPRAMIDE 10 MG TAB PO PRN (08:09)
[2018-08-27] MEDS: IPRATROPIUM-ALBUTEROL 3 ML NEB INHALATION SCH ×4 (08:18→21:02)
[2018-08-27] MEDS ORDERED: LORazepam 1 MG TAB PO SCH (09:00)
[2018-08-27] MEDS ORDERED: AZITHROMYCIN 500 MG TAB PO SCH (09:00)
[2018-08-27] MEDS ORDERED: clonazePAM 1 MG TAB PO SCH (09:00)
[2018-08-27] MEDS: LORATADINE 10 MG TAB PO SCH (09:21)
[2018-08-27] MEDS: VENLAFAXINE HCL ER 150 MG CAP PO SCH (09:21)
[2018-08-27] MEDS: ANASTROZOLE 1 MG TAB PO SCH ×2 (09:21→09:24)
[2018-08-27] MEDS: CALCIUM CARB-VIT D 500MG-200UN 1 EACH TAB PO SCH (09:21)
[2018-08-27] MEDS: PANTOPRAZOLE 40 MG TABLET PO SCH ×2 (09:21→16:39)
[2018-08-27] MEDS: ENOXAPARIN 40 MG/0.4 ML SYRINGE SQ SCH (09:22)
[2018-08-27] MEDS: guaiFENesin 600 MG TABLET.ER PO SCH ×2 (09:22→21:36)
[2018-08-27] MEDS: amLODIPine 10 MG TAB PO SCH (09:29)
[2018-08-27 11:02] LABS: Glucose,Whole Blood 183 mg/dL (75-99)
[2018-08-27] MEDS ORDERED: LORazepam 1 MG TAB PO PRN (12:09)
[2018-08-27] MEDS ORDERED: MD COMMUNICATION TO PHARMACY 1 EACH MISC PO SCH (13:00)
[2018-08-27] MEDS: INSULIN ASPART 100 UNIT/ML 1 ML 10 ML VIAL SQ SCH ×3 (13:52→21:33)
[2018-08-27 16:35] LABS: Glucose,Whole Blood 221 mg/dL (75-99)
[2018-08-27] MEDS: IBRANCE 125 MG PO SCH (16:39)
[2018-08-27] MEDS ORDERED: IBRANCE 125 MG PO SCH (18:00)
[2018-08-27 20:31] LABS: Glucose,Whole Blood 94 mg/dL (75-99)
[2018-08-27] MEDS: SYMBICORT 160-4.5 MCG INHALER INHALATION SCH (21:02)
[2018-08-27] MEDS: ARIPiprazole 2 MG TAB PO SCH (21:35)
[2018-08-27] MEDS: AZITHROMYCIN 500 MG TAB PO SCH (21:35)
[2018-08-27] MEDS: DOCUSATE 100 MG CAP PO SCH (22:40)
--- NOTE | 2018-08-27 23:20 | P.HPIM ---
History of Present Illness H&P Date: 08/27/18 Chief Complaint: COPD exacerbation This is a 57-year-old female one of Dr. Alberts with a previous medical history significant for breast cancer with metastatic disease to the lingula status post radiation therapy, history of COPD, hypertension and hypertensive cardiovascular disease, hyperlipidemia, ALLERGIC rhinitis, patient presented to the emergency department at [facility] with few day history of increased coughing associated with yellow phlegm production with a low-grade temperature along with chest pain, she has been following with the [facility] for oral chemotherapy Ibrance 125 mg orally daily for 21 days last appointment was on Tuesday, if notice patient underwent total abdominal hysterectomy and bilateral Oophorectomy at the [facility] about 4 weeks ago due to metastatic breast cancer patient was seen in the ER and evaluated and she ended up admitted to the hospital for COPD exacerbation and pulmonary consultation Consultation was obtained. Review of Systems Constitutional: Reports chronic headaches, Reports weakness, Denies anorexia, Denies lethargy Eyes: denies blurred vision, denies bulging eye, denies decreased vision, denies diplopia Ears: deny: decreased hearing Ears, nose, mouth and throat: Denies dysphagia, Denies neck lump, Denies sore throat Cardiovascular: Reports chest pain, Reports decreased exercise tolerance, Reports dyspnea on exertion, Reports shortness of breath, Denies syncope Respiratory: Reports congestion, Reports cough, Reports cough with sputum, Reports home oxygen, Denies sleep apnea, Denies snoring, Denies wheezing Gastrointestinal: Denies abdominal pain, Denies diarrhea, Denies nausea, Denies vomiting Genitourinary: Denies dysuria, Denies hematuria Musculoskeletal: Denies myalgias Musculoskeletal: absent: ankle pain, ankle stiffness, ankle swelling, elbow pain , elbow stiffness, elbow swelling, foot pain, foot stiffness, foot swelling, hand pain, hand stiffness, hand swelling, hip pain, hip stiffness, hip swelling , knee pain, knee stiffness, knee swelling, shoulder pain, shoulder stiffness, shoulder swelling, wrist pain, wrist stiffness, wrist swelling Integumentary: Denies pruritus, Denies rash Neurological: Denies numbness, Denies weakness Psychiatric: Reports anxiety Endocrine: Denies fatigue, Denies weight change Past Medical History Past Medical History: Cancer, COPD, GERD/Reflux, GI Bleed, Hypertension, Pneumonia Additional Past Medical History / Comment(s): COPD, baseline FEV1 of 37% of predicted consistent with severe COPD, metastatic breast cancer, hypertension, cyclic vomiting syndrome, lymphedema of the right upper extremity related to previous breast surgery, chronic sinus disease, history of QT prolongation secondary to antibiotic use. 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 History of Any Multi-Drug Resistant Organisms: None Reported Past Surgical History: Hysterectomy Additional Past Surgical History / Comment(s): Cone biopsy at age 22 years of age, multiple colonoscopies and EGDs. Thoracoscopy with minimal thoracotomy and pleural biopsy, D&C.. bilateral mastectomy and lymph nodeectomy, LT and RT THUMB TRIGGER FINGER SX, LT KNEE ARTHROSOCPY X2 , LT ACL REPAIR Past Anesthesia/Blood Transfusion Reactions: Postoperative Nausea & Vomiting ( PONV) Past Psychological History: Anxiety, Depression Additional Psychological History / Comment(s): Pt resides with her daughter. She has home O2, nebulizer, blood pressure monitor and oximeter. She drives. Smoking Status: Former smoker Past Alcohol Use History: Rare Additional Past Alcohol Use History / Comment(s): started smoking at age 18, smoked one pack per day and quit 2013. Past Drug Use History: None Reported Additional Drug Use History / Comment(s): Smoked pot on occasion in the past - Past Family History Father Family Medical History: Cancer Additional Family Medical History / Comment(s): Patient reports her father of lung cancer at age 59. Brother(s) Additional Family Medical History / Comment(s): Patient has to penicillin major medical problems. Patient has 2 sisters with no major medical problems. Patient has one daughter with no major medical problems. Mother Additional Family Medical History / Comment(s): MOM IS HEALTHY AT AGE 80 Medications and Allergies Home Medications Medication Instructions Recorded Confirmed Type Budesonide-Formot 160-4.5 Mcg 2 puff INHALATION RT-BID 03/28/14 08/27/18 History [Symbicort 160-4.5 Mcg Inhaler] Anastrozole [Arimidex] 1 mg PO DAILY #30 tab 04/02/14 08/27/18 Rx Albuterol Inhaler [Ventolin Hfa 2 puff INHALATION RT-Q6H PRN 09/05/15 08/27/18 History Inhaler] Omeprazole 20 mg PO BID 09/05/15 08/27/18 History Venlafaxine HCl [Effexor XR] 150 mg PO DAILY 09/05/15 08/27/18 History Albuterol Nebulized [Ventolin 2.5 mg INHALATION RT-QID 08/12/17 08/27/18 History Nebulized] guaiFENesin [Mucinex] 600 mg PO BID 08/12/17 08/27/18 History Loratadine 10 mg PO DAILY 06/27/18 08/27/18 History Tiotropium 18 Mcg/Puff [Spiriva] 2 puff INHALATION RT-DAILY 06/27/18 08/27/18 History ARIPiprazole [Abilify] 2 mg PO HS 08/04/18 08/27/18 History Ibuprofen [Motrin] 600 mg PO Q6HR PRN 08/04/18 08/27/18 History Azithromycin [Zithromax Z-pack] See Taper PO DAILY 08/27/18 08/27/18 History Palbociclib [Ibrance] 125 mg PO DIRECTED 08/27/18 08/27/18 History Promethazine [Phenergan] 25 mg PO QID PRN 08/27/18 08/27/18 History amLODIPine [Norvasc] 10 mg PO DAILY 08/27/18 08/27/18 History Allergies Allergy/AdvReac Type Severity Reaction Status Date / Time levofloxacin Allergy Rash/Hives Verified 08/27/18 08:59 ondansetron HCl AdvReac Severe Increased Verified 08/27/18 08:59 [From Zofran (as QT interval hydrochloride)] prochlorperazine edisylate AdvReac Severe Increased Verified 08/27/18 08:59 [From Compazine] QT interval prochlorperazine maleate AdvReac Severe Increased Verified 08/27/18 08:59 [From Compazine] QT Interval Physical Exam Vitals: Vital Signs Temp Pulse Pulse Resp BP BP Pulse Ox 08/27/18 06:03 98.4 F 95 17 145/86 89 L 08/27/18 04:46 92 08/27/18 04:35 88 08/27/18 02:26 92 20 142/90 94 L 08/27/18 01:02 81 18 122/87 94 L 08/27/18 00:10 98 08/26/18 23:46 89 08/26/18 23:12 98.2 F 90 20 127/81 93 L Intake and Output 08/26/18 08/27/18 08/27/18 22:59 06:59 14:59 Other: # Voids 1 Weight 52.163 kg - Constitutional General appearance: average body habitus, mild distress - EENT Eyes: anicteric sclerae, EOMI, no ptosis, no scleral icterus, normal appearance ENT: hearing grossly normal, NA/AT, normal oropharynx Ears: bilateral: normal - Neck Neck: no lymphadenopathy, normal ROM, no rigidity, no stridor, no thyromegaly Carotids: bilateral: upstroke normal Thyroid: bilateral: normal size - Respiratory Respiratory: bilateral: diminished, wheezing, prolonged expiration, negative: dullness, rales, rhonchi - Cardiovascular Rhythm: regular Heart sounds: normal: S1, S2 Abnormal Heart Sounds: no S3 Gallop - Gastrointestinal General gastrointestinal: normal bowel sounds, soft, no splenomegaly, no tenderness, no umbilical hernia, no ventral hernia - Integumentary Integumentary: normal, normal turgor - Neurologic Neurologic: CNII-XII intact - Musculoskeletal Musculoskeletal: generalized weakness, strength equal bilaterally - Psychiatric Psychiatric: A&O x's 3, appropriate affect, intact judgment & insight Results CBC & Chem 7: 08/26/18 23:40 08/26/18 23:40 Labs: Abnormal Lab Results - Last 24 Hours (Table) 08/26/18 08/26/18 08/26/18 Range/Units 23:40 23:40 23:40 Lymphocytes # 0.6 L (1.0-4.8) k/uL Sodium 136 L (137-145) mmol/L Chloride 97 L (98-107) mmol/L Creatinine 0.45 L (0.52-1.04) mg/dL Glucose 148 H (74-99) mg/dL POC Glucose (mg/dL) (75-99) mg/dL Total Creatine Kinase 224 H (30-135) U/L 08/27/18 Range/Units 07:11 Lymphocytes # (1.0-4.8) k/uL Sodium (137-145) mmol/L Chloride (98-107) mmol/L Creatinine (0.52-1.04) mg/dL Glucose (74-99) mg/dL POC Glucose (mg/dL) 184 H (75-99) mg/dL Total Creatine Kinase (30-135) U/L Thrombosis Risk Factor Assmnt - DVT/VTE Prophylaxis DVT/VTE Prophylaxis: Pharmacologic Prophylaxis ordered, Mechanical Prophylaxis ordered - Choose All That Apply Any of the Below Risk Factors Present?: Yes Each Factor Represents 1 point: Abnormal pulmonary function (COPD), Age 41-60 years Each Risk Factor Represents 2 Points: Malignancy Thrombosis Risk Factor Assessment Total Risk Factor Score: 4 Thrombosis Risk Factor Assessment Level: Moderate Risk Assessment and Plan Assessment: Assessment and plan: 1. Acute respiratory failure secondary to acute exacerbation of COPD. Start the patient on Solu-Medrol 60 mg IV push every 6 hours, DuoNeb 3 ml nebulization 4 times every day, Pulmicort 1 mg nebulization twice every day, start the patient also on , start the patient on Zithromax 500 mg IV piggyback every 24 hours , pulmonary consultation from Dr. Cross. 2. Breast cancer with bilateral mastectomy right for primary breast cancer left for prophylactic reasons with a recent Total abdominal hysterectomy and bilateral salpingoophorectomy due to metastatic breast cancer currently on Ibrance 125 mg orally daily for 21 days. 3. Hypertension and hypertensive cardiovascular disease. Continue amlodipine 5 mg orally twice every day. 4. Depression. Continue Effexor XR 150 mg orally once every day. 5. Anxiety disorder. Continue Valium 1 mg po daily as needed. 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 7. DVT prophylaxis. Continue heparin 5000 units subcutaneously every 12 hours. 8. GI prophylaxis. Continue PPI. 9. Admit to inpatient. Estimate a length of stay 2 midnights. 10. Full code.
[2018-08-28] MEDS: methylPREDNISolone SOD SUCCI 125 MG/2 ML VIAL IV SCH ×4 (05:19→23:51)
[2018-08-28 06:54] LABS: Glucose,Whole Blood 146 mg/dL (75-99)
[2018-08-28] MEDS: IPRATROPIUM-ALBUTEROL 3 ML NEB INHALATION SCH ×4 (07:56→20:14)
[2018-08-28] MEDS: SYMBICORT 160-4.5 MCG INHALER INHALATION SCH ×2 (07:57→20:14)
[2018-08-28] MEDS: ENOXAPARIN 40 MG/0.4 ML SYRINGE SQ SCH (08:17)
[2018-08-28] MEDS: PANTOPRAZOLE 40 MG TABLET PO SCH ×2 (08:18→16:48)
[2018-08-28] MEDS: IBRANCE 125 MG PO SCH (08:19)
[2018-08-28] MEDS: CALCIUM CARB-VIT D 500MG-200UN 1 EACH TAB PO SCH (08:19)
[2018-08-28] MEDS: amLODIPine 10 MG TAB PO SCH (08:19)
[2018-08-28] MEDS: guaiFENesin 600 MG TABLET.ER PO SCH ×2 (08:19→21:21)
[2018-08-28] MEDS: LORATADINE 10 MG TAB PO SCH (08:19)
[2018-08-28] MEDS: VENLAFAXINE HCL ER 150 MG CAP PO SCH (08:19)
[2018-08-28 08:23] LABS: Basophils % (A) 0 %; Eosinophils % (A) 0 %; Lymphocytes # (A) 0.4 k/uL (1.0-4.8); Lymphocytes % (A) 4 %; MCH 29.1 pg (25.0-35.0); MCHC 31.8 g/dL (31.0-37.0); MCV 91.4 fL (80.0-100.0); Mean Platelet Volume 6.2; Monocytes # (A) 0.1 k/uL (0-1.0); Monocytes % (A) 1 %; Neutrophils # (A) 8.6 k/uL (1.3-7.7); Neutrophils % (A) 95 %; Platelet Count 361 k/uL (150-450); RBC 4.48 m/uL (3.80-5.40); RDW 13.6 % (11.5-15.5); WBC 9.1 k/uL (3.8-10.6)
[2018-08-28] MEDS: INSULIN ASPART 100 UNIT/ML 1 ML 10 ML VIAL SQ SCH ×4 (08:27→21:24)
[2018-08-28 08:43] LABS: ALT 38 U/L (9-52); AST 26 U/L (14-36); Albumin 4.4 g/dL (3.5-5.0); Alkaline Phosphatase 96 U/L (38-126); Anion Gap 9 mmol/L; Blood Urea Nitrogen 17 mg/dL (7-17); Calcium 9.6 mg/dL (8.4-10.2); Carbon Dioxide 30 mmol/L (22-30); Chloride 96 mmol/L (98-107); Glucose 179 mg/dL (74-99); Magnesium 2.1 mg/dL (1.6-2.3); Potassium 4.8 mmol/L (3.5-5.1); Sodium 135 mmol/L (137-145); Total Bilirubin 0.3 mg/dL (0.2-1.3); Total Protein 7.2 g/dL (6.3-8.2)
[2018-08-28 11:28] LABS: Glucose,Whole Blood 155 mg/dL (75-99)
--- NOTE | 2018-08-28 14:11 | P.PN ---
Subjective Progress Note Date: 08/28/18 This is a 57-year-old female one of Dr. Alberts with a previous medical history significant for breast cancer with metastatic disease to the lingula status post radiation therapy, history of COPD, hypertension and hypertensive cardiovascular disease, hyperlipidemia, ALLERGIC rhinitis, patient presented to the emergency department at [facility] with few day history of increased coughing associated with yellow phlegm production with a low-grade temperature along with chest pain, she has been following with the [facility] for oral chemotherapy Ibrance 125 mg orally daily for 21 days last appointment was on Tuesday, if notice patient underwent total abdominal hysterectomy and bilateral Oophorectomy at the [facility] about 4 weeks ago due to metastatic breast cancer patient was seen in the ER and evaluated and she ended up admitted to the hospital for COPD exacerbation and pulmonary consultation Consultation was obtained. 08/28: Patient states that her breathing status is a little better from yesterday. She has having more anxiety and nurse also verbalizes increased anxiety for which Ativan will be increased to twice daily as needed. Consult in for pulmonary medicine. We will keep Solu-Medrol 60 mg IV every 6 hours. White count is normal, creatinine 0.46, blood sugar pressure running between 94 and 155. She has been afebrile, vital signs stable, pulse ox 93% on room air. Blood culture showing no growth. Review of Systems Constitutional: Reports chronic headaches, Reports weakness, Denies anorexia, Denies lethargy Eyes: denies blurred vision, denies bulging eye, denies decreased vision, denies diplopia Ears: deny: decreased hearing Ears, nose, mouth and throat: Denies dysphagia, Denies neck lump, Denies sore throat Cardiovascular: Reports chest pain, Reports decreased exercise tolerance, Reports dyspnea on exertion, Reports shortness of breath, Denies syncope Respiratory: Reports congestion, Reports cough, Reports cough with sputum, Reports home oxygen, Denies sleep apnea, Denies snoring, Denies wheezing Gastrointestinal: Denies abdominal pain, Denies diarrhea, Denies nausea, Denies vomiting Genitourinary: Denies dysuria, Denies hematuria Musculoskeletal: Denies myalgias Musculoskeletal: absent: ankle pain, ankle stiffness, ankle swelling, elbow pain , elbow stiffness, elbow swelling, foot pain, foot stiffness, foot swelling, hand pain, hand stiffness, hand swelling, hip pain, hip stiffness, hip swelling , knee pain, knee stiffness, knee swelling, shoulder pain, shoulder stiffness, shoulder swelling, wrist pain, wrist stiffness, wrist swelling Integumentary: Denies pruritus, Denies rash Neurological: Denies numbness, Denies weakness Psychiatric: Reports anxiety Endocrine: Denies fatigue, Denies weight change Objective - Vital Signs Vital signs: Vital Signs Temp 97.6 F 08/28/18 05:00 Pulse 100 08/28/18 08:11 Resp 18 08/28/18 08:00 BP 137/91 08/28/18 05:00 Pulse Ox 90 L 08/28/18 07:57 Intake & Output 08/27/18 08/28/18 08/28/18 18:59 06:59 18:59 Other: Voiding Method Bedside Commode Bedside Commode Bedpan Bedpan # Voids 2 - Labs CBC & Chem 7: 08/28/18 07:34 08/28/18 07:34 Labs: Abnormal Lab Results - Last 24 Hours (Table) 08/27/18 08/28/18 08/28/18 Range/Units 16:33 06:53 07:34 Neutrophils # 8.6 H (1.3-7.7) k/uL Lymphocytes # 0.4 L (1.0-4.8) k/uL Sodium (137-145) mmol/L Chloride (98-107) mmol/L Creatinine (0.52-1.04) mg/dL Glucose (74-99) mg/dL POC Glucose (mg/dL) 221 H 146 H (75-99) mg/dL 08/28/18 08/28/18 Range/Units 07:34 11:26 Neutrophils # (1.3-7.7) k/uL Lymphocytes # (1.0-4.8) k/uL Sodium 135 L (137-145) mmol/L Chloride 96 L (98-107) mmol/L Creatinine 0.46 L (0.52-1.04) mg/dL Glucose 179 H (74-99) mg/dL POC Glucose (mg/dL) 155 H (75-99) mg/dL Microbiology - Last 24 Hours (Table) 08/27/18 00:04 Blood Culture - Preliminary Blood No Growth after 24 hours
--- NOTE | 2018-08-28 15:44 | P.CNPUL ---
History of Present Illness Consult date: 08/28/18 Requesting physician: Flower Babb Reason for consult: COPD Chief complaint: Shortness of breath, cough, and wheezing. History of present illness: This is a 57-year-old female with history of severe COPD, stage IV metastatic breast cancer, previous radiation therapy, hypertension, hyperlipidemia, patient presented to the ER with mostly symptoms of cough wheezing shortness of breath for the last few days. Cough is productive with yellow phlegm. Patient was recently seen at the [facility] for her metastatic breast cancer which was recently diagnosed at the [facility], and she is now on oral chemotherapy ibrance 125 mg daily for 21 days. Patient had a recent abdominal hysterectomy and bilateral oophorectomy at the [facility] about 4 weeks ago. At any rate her presentation this time seems to be mostly pulmonary in nature with cough wheezing shortness of breath. Her chest x -ray showed some chronic changes in the right middle lobe, most likely scarring in nature, and a small right-sided pleural effusion was noted. Unchanged from previous x-rays. Her CBC showed no evidence of leukocytosis. Basic metabolic profile was noted to be relatively normal. Calcium level was normal. Review of Systems Constitutional: Chronic weakness fatigue and chronic headaches. Cardiovascular: Denies chest pain, no diaphoresis, no palpitations. Respiratory: Cough wheezing shortness of breath as noted in HPI. Gastrointestinal: No nausea no vomiting no abdominal pain no melena no hematemesis. Genitourinary: No dysuria frequency or urgency. Musculoskeletal: Denies myalgia. Integumentary: Denies pruritus, Denies rash Neurological: Denies numbness patient does have chronic headaches, no blurred vision, no dizziness. Psychiatric: Complains of intermittent episodes of anxiety. Endocrine: No heat or cold intolerance. No symptoms of diabetes. Past Medical History Past Medical History: Cancer, COPD, GERD/Reflux, GI Bleed, Hypertension, Pneumonia Additional Past Medical History / Comment(s): COPD, baseline FEV1 of 37% of predicted consistent with severe COPD, metastatic breast cancer, hypertension, cyclic vomiting syndrome, lymphedema of the right upper extremity related to previous breast surgery, chronic sinus disease, history of QT prolongation secondary to antibiotic use. 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 History of Any Multi-Drug Resistant Organisms: None Reported Past Surgical History: Hysterectomy Additional Past Surgical History / Comment(s): Cone biopsy at age 22 years of age, multiple colonoscopies and EGDs. Thoracoscopy with minimal thoracotomy and pleural biopsy, D&C.. bilateral mastectomy and lymph nodeectomy, LT and RT THUMB TRIGGER FINGER SX, LT KNEE ARTHROSOCPY X2 , LT ACL REPAIR Past Anesthesia/Blood Transfusion Reactions: Postoperative Nausea & Vomiting ( PONV) Past Psychological History: Anxiety, Depression Additional Psychological History / Comment(s): Pt resides with her daughter. She has home O2, nebulizer, blood pressure monitor and oximeter. She drives. Smoking Status: Former smoker Past Alcohol Use History: Rare Additional Past Alcohol Use History / Comment(s): started smoking at age 18, smoked one pack per day and quit 2013. Past Drug Use History: None Reported Additional Drug Use History / Comment(s): Smoked pot on occasion in the past - Past Family History Father Family Medical History: Cancer Additional Family Medical History / Comment(s): Patient reports her father of lung cancer at age 59. Brother(s) Additional Family Medical History / Comment(s): Patient has to penicillin major medical problems. Patient has 2 sisters with no major medical problems. Patient has one daughter with no major medical problems. Mother Additional Family Medical History / Comment(s): MOM IS HEALTHY AT AGE 80 Medications and Allergies Home Medications Medication Instructions Recorded Confirmed Type Budesonide-Formot 160-4.5 Mcg 2 puff INHALATION RT-BID 03/28/14 08/28/18 History [Symbicort 160-4.5 Mcg Inhaler] Anastrozole [Arimidex] 1 mg PO DAILY #30 tab 04/02/14 08/28/18 Rx Albuterol Inhaler [Ventolin Hfa 2 puff INHALATION RT-Q6H PRN 09/05/15 08/27/18 History Inhaler] Omeprazole 20 mg PO BID 09/05/15 08/28/18 History Venlafaxine HCl [Effexor XR] 150 mg PO DAILY 09/05/15 08/27/18 History Albuterol Nebulized [Ventolin 2.5 mg INHALATION RT-QID 08/12/17 08/28/18 History Nebulized] guaiFENesin [Mucinex] 600 mg PO BID 08/12/17 08/28/18 History Tiotropium 18 Mcg/Puff [Spiriva] 2 puff INHALATION RT-DAILY 06/27/18 08/28/18 History ARIPiprazole [Abilify] 2 mg PO HS 08/04/18 08/28/18 History Ibuprofen [Motrin] 600 mg PO Q6HR PRN 08/04/18 08/27/18 History Azithromycin [Zithromax Z-pack] See Taper PO DAILY 08/27/18 08/27/18 History Palbociclib [Ibrance] 125 mg PO DIRECTED 08/27/18 08/27/18 History Promethazine [Phenergan] 25 mg PO QID PRN 08/27/18 08/27/18 History amLODIPine [Norvasc] 10 mg PO DAILY 08/27/18 08/28/18 History Calcium Carbonate [Calcium] 1,200 mg PO DAILY 08/28/18 08/28/18 History Cetirizine HCl [Zyrtec] 10 mg PO HS 08/28/18 08/28/18 History Cholecalciferol [Vitamin D3] 400 unit PO DAILY 08/28/18 08/28/18 History Metoclopramide [Reglan] 10 mg PO DAILY PRN 08/28/18 08/28/18 History clonazePAM [KlonoPIN] 1 mg PO TID PRN 08/28/18 08/28/18 History Allergies Allergy/AdvReac Type Severity Reaction Status Date / Time levofloxacin Allergy Rash/Hives Verified 08/27/18 08:59 ondansetron HCl AdvReac Severe Increased Verified 08/27/18 08:59 [From Zofran (as QT interval hydrochloride)] prochlorperazine edisylate AdvReac Severe Increased Verified 08/27/18 08:59 [From Compazine] QT interval prochlorperazine maleate AdvReac Severe Increased Verified 08/27/18 08:59 [From Compazine] QT Interval Physical Exam Vitals: Vital Signs Temp Pulse Pulse Resp BP Pulse Ox 08/28/18 12:37 100 08/28/18 12:26 100 08/28/18 12:01 97.5 F L 104 H 18 135/85 93 L 08/28/18 08:11 100 08/28/18 08:00 91 18 08/28/18 07:57 100 90 L 08/28/18 05:00 97.6 F 91 18 137/91 98 08/27/18 21:14 114 H 08/27/18 21:05 92 L 08/27/18 21:04 99 08/27/18 21:00 98.2 F 95 18 148/92 96 08/27/18 16:50 102 H 08/27/18 16:43 100 Intake and Output 08/28/18 08/28/18 08/28/18 06:59 14:59 22:59 Intake Total 200 Balance 200 Intake: Oral 200 Other: Voiding Method Bedside Commode Bedside Commode Bedpan Bedpan # Voids 2 Physical Exam: Revealed a 57-year-old female in no distress, noted to be slightly anxious. Head: Atraumatic, normocephalic. HEENT:[Neck is supple.] [No neck masses.] [No thyromegaly.] [No JVD.] Chest: [Diffuse rhonchi and wheezes noted bilaterally..] Cardiac Exam: [Normal S1 and S2, no S3 gallop, no murmur.] Abdomen: [Soft, nontender, no megaly, no rebound, no guarding, normal bowel sounds.] Extremities: [No clubbing, no edema, no cyanosis.] Neurological Exam: [No focal neurologic deficit Psychiatric: Normal mood, affect and mental status examination. Skin: No rashes.] Results - Laboratory Findings CBC and BMP: 08/28/18 07:34 08/28/18 07:34 PT/INR, D-dimer PT 9.5 sec (9.0-12.0) 08/26/18 23:40 INR 0.9 (<1.2) 08/26/18 23:40 Abnormal lab findings: Abnormal Labs 08/26/18 08/26/18 08/26/18 23:40 23:40 23:40 Neutrophils # Lymphocytes # 0.6 L Sodium 136 L Chloride 97 L Creatinine 0.45 L Glucose 148 H POC Glucose (mg/dL) Total Creatine Kinase 224 H 08/27/18 08/27/18 08/27/18 07:11 11:01 16:33 Neutrophils # Lymphocytes # Sodium Chloride Creatinine Glucose POC Glucose (mg/dL) 184 H 183 H 221 H Total Creatine Kinase 08/28/18 08/28/18 08/28/18 06:53 07:34 07:34 Neutrophils # 8.6 H Lymphocytes # 0.4 L Sodium 135 L Chloride 96 L Creatinine 0.46 L Glucose 179 H POC Glucose (mg/dL) 146 H Total Creatine Kinase 08/28/18 11:26 Neutrophils # Lymphocytes # Sodium Chloride Creatinine Glucose POC Glucose (mg/dL) 155 H Total Creatine Kinase - Diagnostic Findings Chest x-ray: image reviewed (As noted in my HPI.) Assessment and Plan Assessment: Impression: 1 acute exacerbation of severe COPD, patient is presently on proper bronchodilators and steroids as well as empiric antibiotics. 2 chronic right lung findings noted on the chest x-ray, no clear-cut evidence of active infiltrate. 3 metastatic breast cancer stage IV. 4 multiple comorbidities including hypertension, depression, anxiety, Recommendation: Continue present course of bronchodilators, antibiotics, steroids, GI and DVT prophylaxis, we'll continue to follow. Discussed the chest x-ray findings with the patient, and she seems to be on appropriate treatment for now. We'll continue to follow. Time with Patient: Greater than 30
[2018-08-28 16:41] LABS: Glucose,Whole Blood 153 mg/dL (75-99)
[2018-08-28] MEDS: ARIPiprazole 2 MG TAB PO SCH (21:21)
[2018-08-28] MEDS: DOCUSATE 100 MG CAP PO SCH (21:21)
[2018-08-28] MEDS: AZITHROMYCIN 500 MG TAB PO SCH (21:21)
[2018-08-28 21:22] LABS: Glucose,Whole Blood 178 mg/dL (75-99)
[2018-08-28] MEDS: LORazepam 1 MG TAB PO PRN (23:55)
[2018-08-29] MEDS: methylPREDNISolone SOD SUCCI 125 MG/2 ML VIAL IV SCH (06:16)
[2018-08-29 07:29] LABS: Glucose,Whole Blood 163 mg/dL (75-99)
[2018-08-29] MEDS: LORATADINE 10 MG TAB PO SCH (08:14)
[2018-08-29] MEDS: guaiFENesin 600 MG TABLET.ER PO SCH ×2 (08:15→21:15)
[2018-08-29] MEDS: CALCIUM CARB-VIT D 500MG-200UN 1 EACH TAB PO SCH (08:15)
[2018-08-29] MEDS: VENLAFAXINE HCL ER 150 MG CAP PO SCH (08:15)
[2018-08-29] MEDS: amLODIPine 10 MG TAB PO SCH (08:15)
[2018-08-29] MEDS: PANTOPRAZOLE 40 MG TABLET PO SCH ×2 (08:15→18:05)
[2018-08-29] MEDS: IBRANCE 125 MG PO SCH (08:16)
[2018-08-29] MEDS: ENOXAPARIN 40 MG/0.4 ML SYRINGE SQ SCH (08:16)
[2018-08-29] MEDS: INSULIN ASPART 100 UNIT/ML 1 ML 10 ML VIAL SQ SCH ×4 (08:23→21:13)
[2018-08-29] MEDS: SYMBICORT 160-4.5 MCG INHALER INHALATION SCH ×2 (08:30→20:44)
[2018-08-29] MEDS: IPRATROPIUM-ALBUTEROL 3 ML NEB INHALATION SCH ×4 (08:30→20:44)
[2018-08-29 08:46] LABS: Basophils % (A) 0 %; Eosinophils % (A) 0 %; HCT 41.2 % (34.0-46.0); HGB 13.1 gm/dL (11.4-16.0); Lymphocytes # (A) 0.4 k/uL (1.0-4.8); Lymphocytes % (A) 3 %; MCH 29.5 pg (25.0-35.0); MCHC 31.9 g/dL (31.0-37.0); MCV 92.4 fL (80.0-100.0); Mean Platelet Volume 6.5; Monocytes # (A) 0.1 k/uL (0-1.0); Monocytes % (A) 1 %; Neutrophils # (A) 10.4 k/uL (1.3-7.7); Neutrophils % (A) 95 %; Platelet Count 368 k/uL (150-450); RBC 4.46 m/uL (3.80-5.40); RDW 13.6 % (11.5-15.5); WBC 10.9 k/uL (3.8-10.6)
[2018-08-29 08:51] LABS: Anion Gap 6 mmol/L; Blood Urea Nitrogen 20 mg/dL (7-17); Calcium 9.4 mg/dL (8.4-10.2); Carbon Dioxide 37 mmol/L (22-30); Chloride 94 mmol/L (98-107); Glucose 174 mg/dL (74-99); Potassium 4.7 mmol/L (3.5-5.1); Sodium 137 mmol/L (137-145)
[2018-08-29 11:37] LABS: Glucose,Whole Blood 148 mg/dL (75-99)
[2018-08-29] MEDS: LORazepam 1 MG TAB PO PRN ×2 (11:49→23:34)
--- NOTE | 2018-08-29 12:16 | P.PN ---
Subjective Progress Note Date: 08/29/18 Principal diagnosis: Acute exacerbation of chronic obstructive pulmonary disease This is a 57-year-old female with history of severe COPD, stage IV metastatic breast cancer, previous radiation therapy, hypertension, hyperlipidemia, patient presented to the ER with mostly symptoms of cough wheezing shortness of breath for the last few days. Cough is productive with yellow phlegm. Patient was recently seen at the [facility] for her metastatic breast cancer which was recently diagnosed at the [facility], and she is now on oral chemotherapy ibrance 125 mg daily for 21 days. Patient had a recent abdominal hysterectomy and bilateral oophorectomy at the [facility] about 4 weeks ago. At any rate her presentation this time seems to be mostly pulmonary in nature with cough wheezing shortness of breath. Her chest x -ray showed some chronic changes in the right middle lobe, most likely scarring in nature, and a small right-sided pleural effusion was noted. Unchanged from previous x-rays. Her CBC showed no evidence of leukocytosis. Basic metabolic profile was noted to be relatively normal. Calcium level was normal. The patient is seen again today 08/29/2018 in follow-up on the regular medical floor. She is awake and alert in no acute distress. She is doing better today as compared to yesterday. Still somewhat bronchospastic and wheezy. Still dyspneic on minimal exertion. She is currently afebrile. Maintaining good O2 saturations in the 90s on 3 L/m per nasal cannula. She's hemodynamically stable. White count 10.9. Hemoglobin 13.1. Creatinine 0.52. She is maintained on DuoNeb inhalations, Symbicort, IV Solu-Medrol and empiric antibiotics in the form of azithromycin. Objective - Vital Signs Vital signs: Vital Signs Temp 97.9 F 08/29/18 05:00 Pulse 90 08/29/18 11:59 Resp 16 08/29/18 08:00 BP 143/89 08/29/18 05:00 Pulse Ox 94 L 08/29/18 11:59 Intake & Output 08/28/18 08/29/18 08/29/18 18:59 06:59 18:59 Intake Total 200 830 Balance 200 830 Intake: Oral 200 830 Other: Voiding Method Bedside Commode Bedside Commode Bedside Commode Bedpan Bedpan Bedpan # Voids 2 - Exam GENERAL EXAM: Alert, active, comfortable in no apparent distress. On nasal O2 HEAD: Normocephalic. EYES: Normal reaction of pupils, equal size. NOSE: Clear with pink turbinates. THROAT: No erythema or exudates. NECK: No masses, no JVD. CHEST: No chest wall deformity. LUNGS: Equal air entry with bilateral end expiratory wheeze, diminished. CVS: S1 and S2 normal with no audible murmur, regular rhythm. ABDOMEN: No hepatosplenomegaly, normal bowel sounds, no guarding or rigidity. SPINE: No scoliosis or deformity SKIN: No rashes CENTRAL NERVOUS SYSTEM: No focal deficits, tone is normal in all 4 extremities. EXTREMITIES: There is no peripheral edema. No clubbing, no cyanosis. Peripheral pulses are intact. - Labs CBC & Chem 7: 08/29/18 07:46 08/29/18 07:46 Labs: Abnormal Lab Results - Last 24 Hours (Table) 08/28/18 08/28/18 08/29/18 Range/Units 16:40 21:20 07:28 WBC (3.8-10.6) k/uL Neutrophils # (1.3-7.7) k/uL Lymphocytes # (1.0-4.8) k/uL Chloride (98-107) mmol/L Carbon Dioxide (22-30) mmol/L BUN (7-17) mg/dL Glucose (74-99) mg/dL POC Glucose (mg/dL) 153 H 178 H 163 H (75-99) mg/dL 08/29/18 08/29/18 08/29/18 Range/Units 07:46 07:46 11:36 WBC 10.9 H (3.8-10.6) k/uL Neutrophils # 10.4 H (1.3-7.7) k/uL Lymphocytes # 0.4 L (1.0-4.8) k/uL Chloride 94 L (98-107) mmol/L Carbon Dioxide 37 H (22-30) mmol/L BUN 20 H (7-17) mg/dL Glucose 174 H (74-99) mg/dL POC Glucose (mg/dL) 148 H (75-99) mg/dL Microbiology - Last 24 Hours (Table) 08/27/18 00:04 Blood Culture - Preliminary Blood No Growth after 48 hours Assessment and Plan Assessment: Impression: #1 Acute exacerbation of severe end-stage oxygen-dependent chronic obstructive pulmonary disease. FEV1 value 37% of predicted No clear evidence of pneumonia. Chronic right lung findings. #2 History of smoking. #3 History of metastatic breast cancer initially diagnosed in 2000 status post bilateral mastectomy treated with Arimidex, recurrence in 2013 and most recently seen at the [facility] in July and had a hysterectomy and bilateral salpingo-oophorectomy initiated on Ibrance less than 1 week ago. #4 Hypertension. #5 History of anxiety/depression. #6 History of GI bleed. #7 GERD. 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 Plan: The patient was seen and evaluated by Dr. Silva. She is improved today as compared to yesterday. We'll continue with her current treatment plan. We'll increase her activity as tolerated. We'll continue to follow. I, the cosigning physician, performed a history & physical examination of the patient. Lungs sounds with bilateral end expiratory wheeze, diminished. Maintaining good O2 saturations in the 90s on 3 L/m per nasal cannula. I discussed the assessment and plan of care with my nurse practitioner, Dagmar Mixon. I attest to the above note as dictated by her.
--- NOTE | 2018-08-29 14:41 | P.PN ---
Subjective Progress Note Date: 08/29/18 This is a 57-year-old female one of Dr. Alberts with a previous medical history significant for breast cancer with metastatic disease to the lingula status post radiation therapy, history of COPD, hypertension and hypertensive cardiovascular disease, hyperlipidemia, ALLERGIC rhinitis, patient presented to the emergency department at [facility] with few day history of increased coughing associated with yellow phlegm production with a low-grade temperature along with chest pain, she has been following with the [facility] for oral chemotherapy Ibrance 125 mg orally daily for 21 days last appointment was on Tuesday, if notice patient underwent total abdominal hysterectomy and bilateral Oophorectomy at the [facility] about 4 weeks ago due to metastatic breast cancer patient was seen in the ER and evaluated and she ended up admitted to the hospital for COPD exacerbation and pulmonary consultation Consultation was obtained. 08/28: Patient states that her breathing status is a little better from yesterday. She has having more anxiety and nurse also verbalizes increased anxiety for which Ativan will be increased to twice daily as needed. Consult in for pulmonary medicine. We will keep Solu-Medrol 60 mg IV every 6 hours. White count is normal, creatinine 0.46, blood sugar pressure running between 94 and 155. She has been afebrile, vital signs stable, pulse ox 93% on room air. Blood culture showing no growth. 08/29: Patient has been seen by Dr. Lopez with recommendations to continue current treatment and will continue to follow. Pulse ox is 94% on 3 L, vital signs of been stable and patient afebrile. Patient is concerned because her shortness of breath is not getting better. She is now on 3 L today. Contacted Celsa SHIRLEY ([phone]) at [facility] and recommending holding patient's Ibrance until she starts feeling better. The patient is in agreement with this plan. Review of Systems Constitutional: Reports chronic headaches, Reports weakness, Denies anorexia, Denies lethargy Eyes: denies blurred vision, denies bulging eye, denies decreased vision, denies diplopia Ears: deny: decreased hearing Ears, nose, mouth and throat: Denies dysphagia, Denies neck lump, Denies sore throat Cardiovascular: Reports chest pain, Reports decreased exercise tolerance, Reports dyspnea on exertion, Reports shortness of breath, reports cough, Denies syncope Respiratory: Reports congestion, Reports cough, Reports cough with sputum, Reports home oxygen, Denies sleep apnea, Denies snoring, Denies wheezing Gastrointestinal: Denies abdominal pain, Denies diarrhea, Denies nausea, Denies vomiting Genitourinary: Denies dysuria, Denies hematuria Musculoskeletal: Denies myalgias Musculoskeletal: absent: ankle pain, ankle stiffness, ankle swelling, elbow pain , elbow stiffness, elbow swelling, foot pain, foot stiffness, foot swelling, hand pain, hand stiffness, hand swelling, hip pain, hip stiffness, hip swelling , knee pain, knee stiffness, knee swelling, shoulder pain, shoulder stiffness, shoulder swelling, wrist pain, wrist stiffness, wrist swelling Integumentary: Denies pruritus, Denies rash Neurological: Denies numbness, Denies weakness Psychiatric: Reports anxiety Endocrine: Denies fatigue, Denies weight change Objective - Vital Signs Vital signs: Vital Signs Temp 97.9 F 08/29/18 05:00 Pulse 96 08/29/18 08:47 Resp 16 08/29/18 05:00 BP 143/89 08/29/18 05:00 Pulse Ox 94 L 08/29/18 05:00 Intake & Output 08/28/18 08/29/18 08/29/18 18:59 06:59 18:59 Intake Total 200 830 Balance 200 830 Intake: Oral 200 830 Other: Voiding Method Bedside Commode Bedside Commode Bedpan Bedpan # Voids 2 - Exam - Constitutional General appearance: average body habitus, mild distress at rest - EENT Eyes: anicteric sclerae, EOMI, no ptosis, no scleral icterus, normal appearance ENT: hearing grossly normal, NA/AT, normal oropharynx Ears: bilateral: normal - Neck Neck: no lymphadenopathy, normal ROM, no rigidity, no stridor, no thyromegaly Carotids: bilateral: upstroke normal Thyroid: bilateral: normal size - Respiratory Respiratory: bilateral: diminished, wheezing, prolonged expiration, negative: dullness, rales, rhonchi - Cardiovascular Rhythm: regular Heart sounds: normal: S1, S2 Abnormal Heart Sounds: no S3 Gallop - Gastrointestinal General gastrointestinal: normal bowel sounds, soft, no splenomegaly, no tenderness, no umbilical hernia, no ventral hernia - Integumentary Integumentary: normal, normal turgor - Neurologic Neurologic: CNII-XII intact - Musculoskeletal Musculoskeletal: generalized weakness, strength equal bilaterally - Psychiatric Psychiatric: A&O x's 3, appropriate affect, intact judgment & insight - Labs CBC & Chem 7: 08/29/18 07:46 08/29/18 07:46 Labs: Abnormal Lab Results - Last 24 Hours (Table) 08/28/18 08/28/18 08/28/18 Range/Units 11:26 16:40 21:20 WBC (3.8-10.6) k/uL Neutrophils # (1.3-7.7) k/uL Lymphocytes # (1.0-4.8) k/uL Chloride (98-107) mmol/L Carbon Dioxide (22-30) mmol/L BUN (7-17) mg/dL Glucose (74-99) mg/dL POC Glucose (mg/dL) 155 H 153 H 178 H (75-99) mg/dL 08/29/18 08/29/18 08/29/18 Range/Units 07:28 07:46 07:46 WBC 10.9 H (3.8-10.6) k/uL Neutrophils # 10.4 H (1.3-7.7) k/uL Lymphocytes # 0.4 L (1.0-4.8) k/uL Chloride 94 L (98-107) mmol/L Carbon Dioxide 37 H (22-30) mmol/L BUN 20 H (7-17) mg/dL Glucose 174 H (74-99) mg/dL POC Glucose (mg/dL) 163 H (75-99) mg/dL Microbiology - Last 24 Hours (Table) 08/27/18 00:04 Blood Culture - Preliminary Blood No Growth after 48 hours Assessment and Plan Plan: 1. Acute hypoxic respiratory failure secondary to acute exacerbation of COPD. Start the patient on Solu-Medrol 60 mg IV push every 6 hours, DuoNeb 3 ml nebulization 4 times every day, Pulmicort 1 mg nebulization twice every day, start the patient also on , start the patient on Zithromax 500 mg oral every 24 hours , pulmonary consultation from Dr. Silva appreciated. 2. Breast cancer with bilateral mastectomy right for primary breast cancer left for prophylactic reasons with a recent Total abdominal hysterectomy and bilateral salpingoophorectomy due to metastatic breast cancer currently on Ibrance 125 mg orally daily for 21 days--will be held until patient's respiratory status is improved. 3. Hypertension and hypertensive cardiovascular disease. Continue amlodipine 5 mg orally twice every day. 4. Recurrent depression. Continue Effexor XR 150 mg orally once every day. 5. Generalized anxiety disorder. Increase Ativan to twice daily, 1 mg when necessary. 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 7. DVT prophylaxis. Continue heparin 5000 units subcutaneously every 12 hours. 8. GI prophylaxis. Continue PPI. Discharge plan: Return home Impression and plan of care have been directed as dictated by the signing physician. Arleen Gamez nurse practitioner acting as scribe for signing physician.
[2018-08-29 16:25] LABS: Glucose,Whole Blood 196 mg/dL (75-99)
[2018-08-29] MEDS: methylPREDNISolone SOD SUCCI 40 MG/ML 1 ML VIAL IV SCH ×2 (18:05→23:29)
[2018-08-29 19:57] LABS: Glucose,Whole Blood 107 mg/dL (75-99)
[2018-08-29] MEDS: AZITHROMYCIN 500 MG TAB PO SCH (21:15)
[2018-08-29] MEDS: ARIPiprazole 2 MG TAB PO SCH (21:15)
[2018-08-29] MEDS: DOCUSATE 100 MG CAP PO SCH (21:15)
[2018-08-30 07:01] LABS: Glucose,Whole Blood 156 mg/dL (75-99)
[2018-08-30] MEDS: SYMBICORT 160-4.5 MCG INHALER INHALATION SCH ×2 (07:39→20:39)
[2018-08-30] MEDS: IPRATROPIUM-ALBUTEROL 3 ML NEB INHALATION SCH ×4 (07:39→20:39)
[2018-08-30] MEDS: guaiFENesin 600 MG TABLET.ER PO SCH ×2 (07:51→20:56)
[2018-08-30] MEDS: LORATADINE 10 MG TAB PO SCH (07:51)
[2018-08-30] MEDS: amLODIPine 10 MG TAB PO SCH (07:51)
[2018-08-30] MEDS: CALCIUM CARB-VIT D 500MG-200UN 1 EACH TAB PO SCH (07:51)
[2018-08-30] MEDS: PANTOPRAZOLE 40 MG TABLET PO SCH ×2 (07:51→17:14)
[2018-08-30] MEDS: INSULIN ASPART 100 UNIT/ML 1 ML 10 ML VIAL SQ SCH ×4 (07:52→20:57)
[2018-08-30] MEDS: ENOXAPARIN 40 MG/0.4 ML SYRINGE SQ SCH (07:52)
[2018-08-30] MEDS: methylPREDNISolone SOD SUCCI 40 MG/ML 1 ML VIAL IV SCH ×3 (07:52→23:22)
[2018-08-30] MEDS: VENLAFAXINE HCL ER 150 MG CAP PO SCH (07:52)
[2018-08-30] MEDS: LORazepam 1 MG TAB PO PRN ×2 (09:12→22:54)
[2018-08-30] MEDS ORDERED: SALINE NASAL GEL 14.1 GM TUBE TOPICAL PRN (10:00)
--- NOTE | 2018-08-30 11:15 | P.PN ---
Subjective Progress Note Date: 08/30/18 Principal diagnosis: Acute exacerbation of chronic obstructive pulmonary disease This is a 57-year-old female with history of severe COPD, stage IV metastatic breast cancer, previous radiation therapy, hypertension, hyperlipidemia, patient presented to the ER with mostly symptoms of cough wheezing shortness of breath for the last few days. Cough is productive with yellow phlegm. Patient was recently seen at the [facility] for her metastatic breast cancer which was recently diagnosed at the [facility], and she is now on oral chemotherapy ibrance 125 mg daily for 21 days. Patient had a recent abdominal hysterectomy and bilateral oophorectomy at the [facility] about 4 weeks ago. At any rate her presentation this time seems to be mostly pulmonary in nature with cough wheezing shortness of breath. Her chest x -ray showed some chronic changes in the right middle lobe, most likely scarring in nature, and a small right-sided pleural effusion was noted. Unchanged from previous x-rays. Her CBC showed no evidence of leukocytosis. Basic metabolic profile was noted to be relatively normal. Calcium level was normal. The patient is seen again today 08/29/2018 in follow-up on the regular medical floor. She is awake and alert in no acute distress. She is doing better today as compared to yesterday. Still somewhat bronchospastic and wheezy. Still dyspneic on minimal exertion. She is currently afebrile. Maintaining good O2 saturations in the 90s on 3 L/m per nasal cannula. She's hemodynamically stable. White count 10.9. Hemoglobin 13.1. Creatinine 0.52. She is maintained on DuoNeb inhalations, Symbicort, IV Solu-Medrol and empiric antibiotics in the form of azithromycin. The patient is seen again today 08/30/2018 in follow-up on the regular medical floor. She is currently sitting up in a chair at the bedside. She is awake and alert in no acute distress. She is breathing easier today as compared to yesterday. She is maintaining good O2 saturations in the upper 90s on 3 L/m per nasal cannula. She's been afebrile. Hemodynamically stable. Blood culture reveals no growth to date. Objective - Vital Signs Vital signs: Vital Signs Temp 97.7 F 08/30/18 05:00 Pulse 96 08/30/18 07:53 Resp 20 08/30/18 07:40 BP 156/95 12/12/18 05:00 Pulse Ox 98 08/30/18 05:00 Intake & Output 08/29/18 08/30/18 08/30/18 18:59 06:59 18:59 Intake Total 200 830 Balance 200 830 Weight 52.163 kg Intake: Oral 200 830 Other: Voiding Method Bedside Commode Bedside Commode Bedside Commode Bedpan Bedpan Bedpan # Voids 1 - Exam GENERAL EXAM: Alert, active, comfortable in no apparent distress. Up in a chair at the bedside. On nasal O2 HEAD: Normocephalic. EYES: Normal reaction of pupils, equal size. NOSE: Clear with pink turbinates. THROAT: No erythema or exudates. NECK: No masses, no JVD. CHEST: No chest wall deformity. LUNGS: Equal air entry with bilateral end expiratory wheeze, diminished. CVS: S1 and S2 normal with no audible murmur, regular rhythm. ABDOMEN: No hepatosplenomegaly, normal bowel sounds, no guarding or rigidity. SPINE: No scoliosis or deformity SKIN: No rashes CENTRAL NERVOUS SYSTEM: No focal deficits, tone is normal in all 4 extremities. EXTREMITIES: There is no peripheral edema. No clubbing, no cyanosis. Peripheral pulses are intact. - Labs CBC & Chem 7: 08/29/18 07:46 08/29/18 07:46 Labs: Abnormal Lab Results - Last 24 Hours (Table) 08/29/18 08/29/18 08/29/18 Range/Units 11:36 16:24 19:56 POC Glucose (mg/dL) 148 H 196 H 107 H (75-99) mg/dL 08/30/18 Range/Units 07:00 POC Glucose (mg/dL) 156 H (75-99) mg/dL Microbiology - Last 24 Hours (Table) 08/27/18 00:04 Blood Culture - Preliminary Blood No Growth after 72 hours Assessment and Plan Assessment: Impression: #1 Acute exacerbation of severe end-stage oxygen-dependent chronic obstructive pulmonary disease. FEV1 value 37% of predicted No clear evidence of pneumonia. Chronic right lung findings. #2 History of smoking. #3 History of metastatic breast cancer initially diagnosed in 2000 status post bilateral mastectomy treated with Arimidex, recurrence in 2013 and most recently seen at the [facility] in July and had a hysterectomy and bilateral salpingo-oophorectomy initiated on Ibrance less than 1 week ago. #4 Hypertension. #5 History of anxiety/depression. #6 History of GI bleed. #7 GERD. 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 Plan: The patient was seen and evaluated by Dr. Silva. Not quite back to her baseline. We'll continue with her current treatment plan. Ibrance on hold. We 'll increase her activity as tolerated. We'll continue to follow. I, the cosigning physician, performed a history & physical examination of the patient. Lungs sounds with bilateral end expiratory wheeze, diminished. Maintaining good O2 saturations in the 90s on 3 L/m per nasal cannula. I discussed the assessment and plan of care with my nurse practitioner, Dagmar Mixon. I attest to the above note as dictated by her.
[2018-08-30 11:54] LABS: Glucose,Whole Blood 242 mg/dL (75-99)
--- NOTE | 2018-08-30 12:50 | P.PN ---
Subjective Progress Note Date: 08/30/18 This is a 57-year-old female one of Dr. Alberts with a previous medical history significant for breast cancer with metastatic disease to the lingula status post radiation therapy, history of COPD, hypertension and hypertensive cardiovascular disease, hyperlipidemia, ALLERGIC rhinitis, patient presented to the emergency department at [facility] with few day history of increased coughing associated with yellow phlegm production with a low-grade temperature along with chest pain, she has been following with the [facility] for oral chemotherapy Ibrance 125 mg orally daily for 21 days last appointment was on Tuesday, if notice patient underwent total abdominal hysterectomy and bilateral Oophorectomy at the [facility] about 4 weeks ago due to metastatic breast cancer patient was seen in the ER and evaluated and she ended up admitted to the hospital for COPD exacerbation and pulmonary consultation Consultation was obtained. 08/28: Patient states that her breathing status is a little better from yesterday. She has having more anxiety and nurse also verbalizes increased anxiety for which Ativan will be increased to twice daily as needed. Consult in for pulmonary medicine. We will keep Solu-Medrol 60 mg IV every 6 hours. White count is normal, creatinine 0.46, blood sugar pressure running between 94 and 155. She has been afebrile, vital signs stable, pulse ox 93% on room air. Blood culture showing no growth. 08/29: Patient has been seen by Dr. Lopez with recommendations to continue current treatment and will continue to follow. Pulse ox is 94% on 3 L, vital signs of been stable and patient afebrile. Patient is concerned because her shortness of breath is not getting better. She is now on 3 L today. Contacted Celsa SHIRLEY ([phone]) at [facility] and recommending holding patient's Ibrance until she starts feeling better. The patient is in agreement with this plan. 08/30: Patient continues to have shortness of breath with not much improvement. She is on Solu-Medrol 40 mg every 8 hours which will not be changed. She is also on DuoNeb and Symbicort. She is currently off Ibrance. Patient is complaining of right nasal cavity and saline nasal spray added. Review of Systems Constitutional: Reports chronic headaches, Reports weakness, Denies anorexia, Denies lethargy Eyes: denies blurred vision, denies bulging eye, denies decreased vision, denies diplopia Ears: deny: decreased hearing Ears, nose, mouth and throat: Denies dysphagia, Denies neck lump, Denies sore throat complains of dry nasal passages. Cardiovascular: Reports chest pain, Reports decreased exercise tolerance, Reports dyspnea on exertion, Reports shortness of breath, reports cough, Denies syncope Respiratory: Reports congestion, Reports cough, Reports cough with sputum, Reports home oxygen, Denies sleep apnea, Denies snoring, Denies wheezing Gastrointestinal: Denies abdominal pain, Denies diarrhea, Denies nausea, Denies vomiting Genitourinary: Denies dysuria, Denies hematuria Musculoskeletal: Denies myalgias Musculoskeletal: absent: ankle pain, ankle stiffness, ankle swelling, elbow pain , elbow stiffness, elbow swelling, foot pain, foot stiffness, foot swelling, hand pain, hand stiffness, hand swelling, hip pain, hip stiffness, hip swelling , knee pain, knee stiffness, knee swelling, shoulder pain, shoulder stiffness, shoulder swelling, wrist pain, wrist stiffness, wrist swelling Integumentary: Denies pruritus, Denies rash Neurological: Denies numbness, Denies weakness Psychiatric: Reports anxiety Endocrine: Denies fatigue, Denies weight change Objective - Vital Signs Vital signs: Vital Signs Temp 97.7 F 08/30/18 05:00 Pulse 96 08/30/18 07:53 Resp 20 08/30/18 07:40 BP 156/95 08/30/18 05:00 Pulse Ox 98 08/30/18 05:00 Intake & Output 08/29/18 08/30/18 08/30/18 18:59 06:59 18:59 Intake Total 200 830 Balance 200 830 Weight 52.163 kg Intake: Oral 200 830 Other: Voiding Method Bedside Commode Bedside Commode Bedpan Bedpan # Voids 1 - Exam - Constitutional General appearance: average body habitus, mild distress at rest - EENT Eyes: anicteric sclerae, EOMI, no ptosis, no scleral icterus, normal appearance ENT: hearing grossly normal, NA/AT, normal oropharynx Ears: bilateral: normal - Neck Neck: no lymphadenopathy, normal ROM, no rigidity, no stridor, no thyromegaly Carotids: bilateral: upstroke normal Thyroid: bilateral: normal size - Respiratory Respiratory: bilateral: diminished, wheezing, prolonged expiration, negative: dullness, rales, rhonchi - Cardiovascular Rhythm: regular Heart sounds: normal: S1, S2 Abnormal Heart Sounds: no S3 Gallop - Gastrointestinal General gastrointestinal: normal bowel sounds, soft, no splenomegaly, no tenderness, no umbilical hernia, no ventral hernia - Integumentary Integumentary: normal, normal turgor - Neurologic Neurologic: CNII-XII intact - Musculoskeletal Musculoskeletal: generalized weakness, strength equal bilaterally - Psychiatric Psychiatric: A&O x's 3, appropriate affect, intact judgment & insight, patient appears anxious - Labs CBC & Chem 7: 08/29/18 07:46 08/29/18 07:46 Labs: Abnormal Lab Results - Last 24 Hours (Table) 08/29/18 08/29/18 08/29/18 Range/Units 11:36 16:24 19:56 POC Glucose (mg/dL) 148 H 196 H 107 H (75-99) mg/dL 08/30/18 Range/Units 07:00 POC Glucose (mg/dL) 156 H (75-99) mg/dL Microbiology - Last 24 Hours (Table) 08/27/18 00:04 Blood Culture - Preliminary Blood No Growth after 72 hours Assessment and Plan Plan: 1. Acute hypoxic respiratory failure secondary to acute exacerbation of COPD. Start the patient on Solu-Medrol 40 mg IV push every 8 hours, DuoNeb 3 ml nebulization 4 times every day, Pulmicort 1 mg nebulization twice every day, continue Zithromax 500 mg oral every 24 hours , pulmonary consultation from Dr. Silva appreciated. 2. Breast cancer with bilateral mastectomy right for primary breast cancer left for prophylactic reasons with a recent Total abdominal hysterectomy and bilateral salpingoophorectomy due to metastatic breast cancer currently on Ibrance 125 mg orally daily for 21 days--will be held until patient's respiratory status is improved. 3. Hypertension and hypertensive cardiovascular disease. Continue amlodipine 5 mg orally twice every day. 4. Recurrent depression. Continue Effexor XR 150 mg orally once every day. 5. Generalized anxiety disorder. Increase Ativan to twice daily, 1 mg when necessary. 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 7. DVT prophylaxis. Continue heparin 5000 units subcutaneously every 12 hours. 8. GI prophylaxis. Continue PPI. Discharge plan: Return home Impression and plan of care have been directed as dictated by the signing physician. Arleen Gamez nurse practitioner acting as scribe for signing physician.
[2018-08-30 17:10] LABS: Glucose,Whole Blood 96 mg/dL (75-99)
[2018-08-30 19:40] LABS: Glucose,Whole Blood 229 mg/dL (75-99)
[2018-08-30] MEDS: ARIPiprazole 2 MG TAB PO SCH (20:56)
[2018-08-30] MEDS: DOCUSATE 100 MG CAP PO SCH (20:56)
[2018-08-30] MEDS: AZITHROMYCIN 500 MG TAB PO SCH (20:56)
[2018-08-31 07:11] LABS: Glucose,Whole Blood 127 mg/dL (75-99)
[2018-08-31] MEDS: IPRATROPIUM-ALBUTEROL 3 ML NEB INHALATION SCH ×4 (07:26→20:10)
[2018-08-31] MEDS: SYMBICORT 160-4.5 MCG INHALER INHALATION SCH ×2 (07:26→20:11)
[2018-08-31] MEDS: INSULIN ASPART 100 UNIT/ML 1 ML 10 ML VIAL SQ SCH ×3 (08:56→18:02)
[2018-08-31] MEDS: methylPREDNISolone SOD SUCCI 40 MG/ML 1 ML VIAL IV SCH ×3 (09:00→23:15)
[2018-08-31] MEDS: guaiFENesin 600 MG TABLET.ER PO SCH (09:00)
[2018-08-31] MEDS: ENOXAPARIN 40 MG/0.4 ML SYRINGE SQ SCH (09:00)
[2018-08-31] MEDS: CALCIUM CARB-VIT D 500MG-200UN 1 EACH TAB PO SCH (09:00)
[2018-08-31] MEDS: amLODIPine 10 MG TAB PO SCH (09:00)
[2018-08-31] MEDS: LORATADINE 10 MG TAB PO SCH (09:00)
[2018-08-31] MEDS: PANTOPRAZOLE 40 MG TABLET PO SCH ×2 (09:00→18:02)
[2018-08-31] MEDS: VENLAFAXINE HCL ER 150 MG CAP PO SCH (09:01)
[2018-08-31 11:13] LABS: Glucose,Whole Blood 142 mg/dL (75-99)
[2018-08-31] MEDS: NYSTATIN 100,000 UNIT/ML SUSP 500,000 UNIT/5 ML CUP PO SCH ×2 (12:22→18:03)
[2018-08-31] MEDS: LORazepam 1 MG TAB PO PRN ×2 (12:22→23:21)
--- NOTE | 2018-08-31 12:29 | P.PN ---
Subjective Progress Note Date: 08/31/18 Principal diagnosis: Acute exacerbation of chronic obstructive pulmonary disease This is a 57-year-old female with history of severe COPD, stage IV metastatic breast cancer, previous radiation therapy, hypertension, hyperlipidemia, patient presented to the ER with mostly symptoms of cough wheezing shortness of breath for the last few days. Cough is productive with yellow phlegm. Patient was recently seen at the [facility] for her metastatic breast cancer which was recently diagnosed at the [facility], and she is now on oral chemotherapy ibrance 125 mg daily for 21 days. Patient had a recent abdominal hysterectomy and bilateral oophorectomy at the [facility] about 4 weeks ago. At any rate her presentation this time seems to be mostly pulmonary in nature with cough wheezing shortness of breath. Her chest x -ray showed some chronic changes in the right middle lobe, most likely scarring in nature, and a small right-sided pleural effusion was noted. Unchanged from previous x-rays. Her CBC showed no evidence of leukocytosis. Basic metabolic profile was noted to be relatively normal. Calcium level was normal. The patient is seen again today 08/29/2018 in follow-up on the regular medical floor. She is awake and alert in no acute distress. She is doing better today as compared to yesterday. Still somewhat bronchospastic and wheezy. Still dyspneic on minimal exertion. She is currently afebrile. Maintaining good O2 saturations in the 90s on 3 L/m per nasal cannula. She's hemodynamically stable. White count 10.9. Hemoglobin 13.1. Creatinine 0.52. She is maintained on DuoNeb inhalations, Symbicort, IV Solu-Medrol and empiric antibiotics in the form of azithromycin. The patient is seen again today 08/30/2018 in follow-up on the regular medical floor. She is currently sitting up in a chair at the bedside. She is awake and alert in no acute distress. She is breathing easier today as compared to yesterday. She is maintaining good O2 saturations in the upper 90s on 3 L/m per nasal cannula. She's been afebrile. Hemodynamically stable. Blood culture reveals no growth to date. The patient is seen again today 08/31/2018 in follow-up on the regular medical floor. She is up ambulating in her room. She denies any worsening shortness of breath, cough or congestion. She feels she is still not quite back to her baseline. She is maintaining good O2 saturations in the 90s on room air. She' s been afebrile. Hemodynamically stable. She remains on DuoNeb inhalations, Symbicort, Solu-Medrol, empiric antibiotics in the form of azithromycin. Objective - Vital Signs Vital signs: Vital Signs Temp 98.3 F 08/31/18 12:08 Pulse 98 08/31/18 12:08 Resp 18 08/31/18 12:08 BP 136/97 08/31/18 12:08 Pulse Ox 94 L 08/31/18 12:08 Intake & Output 08/30/18 08/31/18 08/31/18 18:59 06:59 18:59 Intake Total 1310 Balance 1310 Intake: Oral 1310 Other: Voiding Method Bedside Commode Toilet Toilet Bedpan Bedside Commode # Voids 2 2 - Exam GENERAL EXAM: Alert, active, comfortable in no apparent distress. Ambulating in the room. On room air HEAD: Normocephalic. EYES: Normal reaction of pupils, equal size. NOSE: Clear with pink turbinates. THROAT: No erythema or exudates. NECK: No masses, no JVD. CHEST: No chest wall deformity. LUNGS: Equal air entry with bilateral end expiratory wheeze, diminished. CVS: S1 and S2 normal with no audible murmur, regular rhythm. ABDOMEN: No hepatosplenomegaly, normal bowel sounds, no guarding or rigidity. SPINE: No scoliosis or deformity SKIN: No rashes CENTRAL NERVOUS SYSTEM: No focal deficits, tone is normal in all 4 extremities. EXTREMITIES: There is no peripheral edema. No clubbing, no cyanosis. Peripheral pulses are intact. - Labs CBC & Chem 7: 08/29/18 07:46 08/29/18 07:46 Labs: Abnormal Lab Results - Last 24 Hours (Table) 08/30/18 08/31/18 08/31/18 Range/Units 19:38 07:10 11:12 POC Glucose (mg/dL) 229 H 127 H 142 H (75-99) mg/dL Microbiology - Last 24 Hours (Table) 08/27/18 00:04 Blood Culture - Preliminary Blood No Growth after 96 hours Assessment and Plan Assessment: Impression: #1 Acute exacerbation of severe end-stage oxygen-dependent chronic obstructive pulmonary disease. FEV1 value 37% of predicted No clear evidence of pneumonia. Chronic right lung findings. #2 History of smoking. #3 History of metastatic breast cancer initially diagnosed in 2000 status post bilateral mastectomy treated with Arimidex, recurrence in 2013 and most recently seen at the [facility] in July and had a hysterectomy and bilateral salpingo-oophorectomy initiated on Ibrance less than 1 week ago. #4 Hypertension. #5 History of anxiety/depression. #6 History of GI bleed. #7 GERD. 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 Plan: The patient was seen and evaluated by Dr. Silva. We'll continue with her current treatment plan. We'll continue to follow. I, the cosigning physician, performed a history & physical examination of the patient. Lungs sounds with bilateral end expiratory wheeze, diminished. Maintaining good O2 saturations in the 90s on room air. I discussed the assessment and plan of care with my nurse practitioner, Dagmar Mixon. I attest to the above note as dictated by her.
--- NOTE | 2018-08-31 14:22 | P.PN ---
Subjective Progress Note Date: 08/31/18 This is a 57-year-old female one of Dr. Alberts with a previous medical history significant for breast cancer with metastatic disease to the lingula status post radiation therapy, history of COPD, hypertension and hypertensive cardiovascular disease, hyperlipidemia, ALLERGIC rhinitis, patient presented to the emergency department at [facility] with few day history of increased coughing associated with yellow phlegm production with a low-grade temperature along with chest pain, she has been following with the [facility] for oral chemotherapy Ibrance 125 mg orally daily for 21 days last appointment was on Tuesday, if notice patient underwent total abdominal hysterectomy and bilateral Oophorectomy at the [facility] about 4 weeks ago due to metastatic breast cancer patient was seen in the ER and evaluated and she ended up admitted to the hospital for COPD exacerbation and pulmonary consultation Consultation was obtained. 08/28: Patient states that her breathing status is a little better from yesterday. She has having more anxiety and nurse also verbalizes increased anxiety for which Ativan will be increased to twice daily as needed. Consult in for pulmonary medicine. We will keep Solu-Medrol 60 mg IV every 6 hours. White count is normal, creatinine 0.46, blood sugar pressure running between 94 and 155. She has been afebrile, vital signs stable, pulse ox 93% on room air. Blood culture showing no growth. 08/29: Patient has been seen by Dr. Lopez with recommendations to continue current treatment and will continue to follow. Pulse ox is 94% on 3 L, vital signs of been stable and patient afebrile. Patient is concerned because her shortness of breath is not getting better. She is now on 3 L today. Contacted Celsa SHIRLEY ([phone]) at [facility] and recommending holding patient's Ibrance until she starts feeling better. The patient is in agreement with this plan. 08/30: Patient continues to have shortness of breath with not much improvement. She is on Solu-Medrol 40 mg every 8 hours which will not be changed. She is also on DuoNeb and Symbicort. She is currently off Ibrance. Patient is complaining of right nasal cavity and saline nasal spray added. 08/31: Patient complaints of shortness of breath with minimal activity in her room. She has continued cough that is mostly nonproductive. We will plan to continue Solu-Medrol 40 mg every 8 hours. She is normally on home O2 at 3 L. Pulse ox is 92% on 3 L. She has had a bowel movement. No pedal edema. She is eating and drinking without difficulty. No nausea or vomiting. Patient will be started on nystatin for thrush. Review of Systems Constitutional: Reports chronic headaches, Reports weakness, Denies anorexia, Denies lethargy Eyes: denies blurred vision, denies bulging eye, denies decreased vision, denies diplopia Ears: deny: decreased hearing Ears, nose, mouth and throat: Denies dysphagia, Denies neck lump, Denies sore throat complains of dry nasal passages. Complains of thrush. Cardiovascular: Reports chest pain, Reports decreased exercise tolerance, Reports dyspnea on exertion, Reports shortness of breath, reports cough, Denies syncope Respiratory: Reports congestion, Reports cough, Reports cough with sputum, Reports home oxygen, Denies sleep apnea, Denies snoring, Denies wheezing Gastrointestinal: Denies abdominal pain, Denies diarrhea, Denies nausea, Denies vomiting Genitourinary: Denies dysuria, Denies hematuria Musculoskeletal: Denies myalgias Musculoskeletal: absent: ankle pain, ankle stiffness, ankle swelling, elbow pain , elbow stiffness, elbow swelling, foot pain, foot stiffness, foot swelling, hand pain, hand stiffness, hand swelling, hip pain, hip stiffness, hip swelling , knee pain, knee stiffness, knee swelling, shoulder pain, shoulder stiffness, shoulder swelling, wrist pain, wrist stiffness, wrist swelling Integumentary: Denies pruritus, Denies rash Neurological: Denies numbness, Denies weakness Psychiatric: Reports anxiety Endocrine: Denies fatigue, Denies weight change Objective - Vital Signs Vital signs: Vital Signs Temp 97.9 F 08/30/18 12:11 Pulse 106 H 08/30/18 12:11 Resp 18 08/30/18 12:11 BP 146/94 08/30/18 12:11 Pulse Ox 93 L 08/30/18 12:11 Intake & Output 08/29/18 08/30/18 08/30/18 18:59 06:59 18:59 Intake Total 200 830 Balance 200 830 Weight 52.163 kg Intake: Oral 200 830 Other: Voiding Method Bedside Commode Bedside Commode Bedside Commode Bedpan Bedpan Bedpan # Voids 1 - Exam - Constitutional General appearance: average body habitus, mild distress at rest with accessory muscle usage - EENT Eyes: anicteric sclerae, EOMI, no ptosis, no scleral icterus, normal appearance ENT: hearing grossly normal, NA/AT, normal oropharynx Ears: bilateral: normal - Neck Neck: no lymphadenopathy, normal ROM, no rigidity, no stridor, no thyromegaly Carotids: bilateral: upstroke normal Thyroid: bilateral: normal size - Respiratory Respiratory: bilateral: diminished, wheezing, prolonged expiration, negative: dullness, rales, rhonchi - Cardiovascular Rhythm: regular Heart sounds: normal: S1, S2 Abnormal Heart Sounds: no S3 Gallop - Gastrointestinal General gastrointestinal: normal bowel sounds, soft, no splenomegaly, no tenderness, no umbilical hernia, no ventral hernia - Integumentary Integumentary: normal, normal turgor - Neurologic Neurologic: CNII-XII intact - Musculoskeletal Musculoskeletal: generalized weakness, strength equal bilaterally - Psychiatric Psychiatric: A&O x's 3, appropriate affect, intact judgment & insight, patient appears anxious - Labs CBC & Chem 7: 08/29/18 07:46 08/29/18 07:46 Labs: Abnormal Lab Results - Last 24 Hours (Table) 08/29/18 08/29/18 08/30/18 Range/Units 16:24 19:56 07:00 POC Glucose (mg/dL) 196 H 107 H 156 H (75-99) mg/dL 08/30/18 Range/Units 11:52 POC Glucose (mg/dL) 242 H (75-99) mg/dL Microbiology - Last 24 Hours (Table) 08/27/18 00:04 Blood Culture - Preliminary Blood No Growth after 72 hours Assessment and Plan Plan: 1. Acute on chronic hypoxic respiratory failure secondary to acute exacerbation of COPD. Start the patient on Solu-Medrol 40 mg IV push every 8 hours, DuoNeb 3 ml nebulization 4 times every day, Pulmicort 1 mg nebulization twice every day, continue Zithromax 500 mg oral every 24 hours , pulmonary consultation from Dr. Silva appreciated. Patient is on 3L oxygen at home. 2. Breast cancer with bilateral mastectomy right for primary breast cancer left for prophylactic reasons with a recent Total abdominal hysterectomy and bilateral salpingoophorectomy due to metastatic breast cancer currently on Ibrance 125 mg orally daily for 21 days--will be held until patient's respiratory status is improved. 3. Hypertension and hypertensive cardiovascular disease. Continue amlodipine 5 mg orally twice every day. 4. Recurrent depression. Continue Effexor XR 150 mg orally once every day. 5. Generalized anxiety disorder. Increase Ativan to twice daily, 1 mg when necessary. 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 7. DVT prophylaxis. Continue heparin 5000 units subcutaneously every 12 hours. 8. GI prophylaxis. Continue PPI. 9. Oral thrush. Nystatin started. Discharge plan: Return home Impression and plan of care have been directed as dictated by the signing physician. Arleen Gamez nurse practitioner acting as scribe for signing physician.
[2018-08-31 16:46] LABS: Glucose,Whole Blood 207 mg/dL (75-99)
[2018-08-31 21:03] LABS: Glucose,Whole Blood 207 mg/dL (75-99)
[2018-09-01 02:15] VITALS: RESP 16
[2018-09-01] MEDS: ARIPiprazole 2 MG TAB PO SCH (02:25)
[2018-09-01] MEDS: AZITHROMYCIN 500 MG TAB PO SCH (02:26)
[2018-09-01] MEDS: guaiFENesin 600 MG TABLET.ER PO SCH ×2 (02:26→09:11)
[2018-09-01] MEDS: INSULIN ASPART 100 UNIT/ML 1 ML 10 ML VIAL SQ SCH ×3 (02:26→12:13)
[2018-09-01] MEDS: DOCUSATE 100 MG CAP PO SCH (02:26)
[2018-09-01] MEDS: NYSTATIN 100,000 UNIT/ML SUSP 500,000 UNIT/5 ML CUP PO SCH ×3 (02:26→12:13)
[2018-09-01 06:41] VITALS: BP 145/91; TEMP 97.7
[2018-09-01 07:27] LABS: Glucose,Whole Blood 138 mg/dL (75-99)
[2018-09-01 08:02] LABS: Basophils % (A) 0 %; Eosinophils % (A) 1 %; HCT 44.8 % (34.0-46.0); HGB 14.2 gm/dL (11.4-16.0); Lymphocytes # (A) 0.9 k/uL (1.0-4.8); Lymphocytes % (A) 12 %; MCH 29.1 pg (25.0-35.0); MCHC 31.7 g/dL (31.0-37.0); Mean Platelet Volume 6.2; Monocytes # (A) 0.2 k/uL (0-1.0); Monocytes % (A) 2 %; Neutrophils # (A) 6.2 k/uL (1.3-7.7); Neutrophils % (A) 85 %; Platelet Count 385 k/uL (150-450); RBC 4.87 m/uL (3.80-5.40); RDW 13.4 % (11.5-15.5); WBC 7.3 k/uL (3.8-10.6)
[2018-09-01 08:13] LABS: ALT 27 U/L (9-52); AST 22 U/L (14-36); Albumin 4.4 g/dL (3.5-5.0); Alkaline Phosphatase 67 U/L (38-126); Anion Gap 9 mmol/L; Blood Urea Nitrogen 19 mg/dL (7-17); Calcium 9.7 mg/dL (8.4-10.2); Carbon Dioxide 35 mmol/L (22-30); Chloride 90 mmol/L (98-107); Glucose 138 mg/dL (74-99); Potassium 5.4 mmol/L (3.5-5.1); Sodium 134 mmol/L (137-145); Total Bilirubin 0.6 mg/dL (0.2-1.3); Total Protein 7.4 g/dL (6.3-8.2)
[2018-09-01] MEDS: IPRATROPIUM-ALBUTEROL 3 ML NEB INHALATION SCH ×2 (08:24→11:21)
[2018-09-01] MEDS: SYMBICORT 160-4.5 MCG INHALER INHALATION SCH (08:24)
[2018-09-01] MEDS: PANTOPRAZOLE 40 MG TABLET PO SCH (09:09)
[2018-09-01] MEDS: methylPREDNISolone SOD SUCCI 40 MG/ML 1 ML VIAL IV SCH (09:09)
[2018-09-01] MEDS: ENOXAPARIN 40 MG/0.4 ML SYRINGE SQ SCH (09:11)
[2018-09-01] MEDS: amLODIPine 10 MG TAB PO SCH (09:11)
[2018-09-01] MEDS: LORATADINE 10 MG TAB PO SCH (09:11)
[2018-09-01] MEDS: CALCIUM CARB-VIT D 500MG-200UN 1 EACH TAB PO SCH (09:11)
[2018-09-01] MEDS: VENLAFAXINE HCL ER 150 MG CAP PO SCH (09:12)
--- NOTE | 2018-09-01 10:17 | P.PN ---
Subjective Progress Note Date: 09/01/18 Principal diagnosis: Acute exacerbation of chronic obstructive pulmonary disease This is a 57-year-old female with history of severe COPD, stage IV metastatic breast cancer, previous radiation therapy, hypertension, hyperlipidemia, patient presented to the ER with mostly symptoms of cough wheezing shortness of breath for the last few days. Cough is productive with yellow phlegm. Patient was recently seen at the [facility] for her metastatic breast cancer which was recently diagnosed at the [facility], and she is now on oral chemotherapy ibrance 125 mg daily for 21 days. Patient had a recent abdominal hysterectomy and bilateral oophorectomy at the [facility] about 4 weeks ago. At any rate her presentation this time seems to be mostly pulmonary in nature with cough wheezing shortness of breath. Her chest x -ray showed some chronic changes in the right middle lobe, most likely scarring in nature, and a small right-sided pleural effusion was noted. Unchanged from previous x-rays. Her CBC showed no evidence of leukocytosis. Basic metabolic profile was noted to be relatively normal. Calcium level was normal. The patient is seen again today 08/29/2018 in follow-up on the regular medical floor. She is awake and alert in no acute distress. She is doing better today as compared to yesterday. Still somewhat bronchospastic and wheezy. Still dyspneic on minimal exertion. She is currently afebrile. Maintaining good O2 saturations in the 90s on 3 L/m per nasal cannula. She's hemodynamically stable. White count 10.9. Hemoglobin 13.1. Creatinine 0.52. She is maintained on DuoNeb inhalations, Symbicort, IV Solu-Medrol and empiric antibiotics in the form of azithromycin. The patient is seen again today 08/30/2018 in follow-up on the regular medical floor. She is currently sitting up in a chair at the bedside. She is awake and alert in no acute distress. She is breathing easier today as compared to yesterday. She is maintaining good O2 saturations in the upper 90s on 3 L/m per nasal cannula. She's been afebrile. Hemodynamically stable. Blood culture reveals no growth to date. The patient is seen again today 08/31/2018 in follow-up on the regular medical floor. She is up ambulating in her room. She denies any worsening shortness of breath, cough or congestion. She feels she is still not quite back to her baseline. She is maintaining good O2 saturations in the 90s on room air. She' s been afebrile. Hemodynamically stable. She remains on DuoNeb inhalations, Symbicort, Solu-Medrol, empiric antibiotics in the form of azithromycin. Patient is seen again today 09/01/2018 in follow-up on the regular medical floor. She is currently up ambulating in the hallway with her oxygen. She is doing very well. She is back to her baseline as far as her pulmonary status is concerned. No worsening shortness of breath, cough or congestion. Continues to maintain good O2 saturations in the high 90s on 2 L/m per nasal cannula. She 's been afebrile. Hemodynamically stable. Blood culture reveals no growth. White count 7.3. Hemoglobin 14.2. Creatinine 0.41. She'll remain on Symbicort , DuoNeb inhalations, we'll convert her to oral prednisone. Objective - Vital Signs Vital signs: Vital Signs Temp 97.7 F 09/01/18 05:00 Pulse 90 09/01/18 08:34 Resp 16 09/01/18 05:00 BP 145/91 09/01/18 05:00 Pulse Ox 98 09/01/18 08:34 Intake & Output 08/31/18 09/01/18 09/01/18 18:59 06:59 18:59 Weight 52.163 kg Other: Voiding Method Toilet Toilet # Voids 1 # Bowel Movements 1 1 - Exam GENERAL EXAM: Alert, active, comfortable in no apparent distress. Ambulating in the hallway. On 2 L/m per nasal cannula HEAD: Normocephalic. EYES: Normal reaction of pupils, equal size. NOSE: Clear with pink turbinates. THROAT: No erythema or exudates. NECK: No masses, no JVD. CHEST: No chest wall deformity. LUNGS: Equal air entry with bilateral end expiratory wheeze, diminished. CVS: S1 and S2 normal with no audible murmur, regular rhythm. ABDOMEN: No hepatosplenomegaly, normal bowel sounds, no guarding or rigidity. SPINE: No scoliosis or deformity SKIN: No rashes CENTRAL NERVOUS SYSTEM: No focal deficits, tone is normal in all 4 extremities. EXTREMITIES: There is no peripheral edema. No clubbing, no cyanosis. Peripheral pulses are intact. - Labs CBC & Chem 7: 09/01/18 07:19 09/01/18 07:19 Labs: Abnormal Lab Results - Last 24 Hours (Table) 08/31/18 08/31/18 08/31/18 Range/Units 11:12 16:45 20:55 Lymphocytes # (1.0-4.8) k/uL Sodium (137-145) mmol/L Potassium (3.5-5.1) mmol/L Chloride (98-107) mmol/L Carbon Dioxide (22-30) mmol/L BUN (7-17) mg/dL Creatinine (0.52-1.04) mg/dL Glucose (74-99) mg/dL POC Glucose (mg/dL) 142 H 207 H 207 H (75-99) mg/dL 09/01/18 09/01/18 09/01/18 Range/Units 07:19 07:19 07:26 Lymphocytes # 0.9 L (1.0-4.8) k/uL Sodium 134 L (137-145) mmol/L Potassium 5.4 H (3.5-5.1) mmol/L Chloride 90 L (98-107) mmol/L Carbon Dioxide 35 H (22-30) mmol/L BUN 19 H (7-17) mg/dL Creatinine 0.41 L (0.52-1.04) mg/dL Glucose 138 H (74-99) mg/dL POC Glucose (mg/dL) 138 H (75-99) mg/dL Microbiology - Last 24 Hours (Table) 08/27/18 00:04 Blood Culture - Preliminary Blood No Growth after 120 hours Assessment and Plan Assessment: Impression: #1 Acute exacerbation of severe end-stage oxygen-dependent chronic obstructive pulmonary disease. FEV1 value 37% of predicted No clear evidence of pneumonia. Chronic right lung findings. #2 History of smoking. #3 History of metastatic breast cancer initially diagnosed in 2000 status post bilateral mastectomy treated with Arimidex, recurrence in 2013 and most recently seen at the [facility] in July and had a hysterectomy and bilateral salpingo-oophorectomy initiated on Ibrance less than 1 week ago. #4 Hypertension. #5 History of anxiety/depression. #6 History of GI bleed. #7 GERD. 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 Plan: The patient was seen and evaluated by Dr. Silva. She is cleared for discharge from the pulmonary standpoint. Follow-up in our office in 1-2 weeks' time. Continue prednisone taper. Continue her home pulmonary medications. She has oxygen and the nebulizer available. She is encouraged to call sooner with any recurrence of symptoms or other questions or concerns. I, the cosigning physician, performed a history & physical examination of the patient. Lungs sounds with bilateral end expiratory wheeze, diminished. Maintaining good O2 saturations in the 90s on 2 L/m per nasal cannula. I discussed the assessment and plan of care with my nurse practitioner, Dagmar Mixon. I attest to the above note as dictated by her.
[2018-09-01 11:20] LABS: Glucose,Whole Blood 135 mg/dL (75-99)
[2018-09-01 11:26] VITALS: BMI 21.7
[2018-09-01 11:34] VITALS: PULSE 93
--- NOTE | 2018-09-01 14:34 | P.DS ---
Providers Date of admission: 08/27/18 11:05 Expected date of discharge: 09/01/18 Attending physician: Flower Babb Consults: 08/28/18 12:00 Consult Physician Routine Consulting Provider: Nisha Silva Consult Reason/Comments: COPD exac Do you want consulting provider notified?: Yes Primary care physician: Sanjay Alberts [facility] Course: This is a 57-year-old female one of Dr. Alberts with a previous medical history significant for breast cancer with metastatic disease to the lingula status post radiation therapy, history of COPD, hypertension and hypertensive cardiovascular disease, hyperlipidemia, ALLERGIC rhinitis, patient presented to the emergency department at [facility] with few day history of increased coughing associated with yellow phlegm production with a low-grade temperature along with chest pain, she has been following with the [facility] for oral chemotherapy Ibrance 125 mg orally daily for 21 days last appointment was on Tuesday, if notice patient underwent total abdominal hysterectomy and bilateral Oophorectomy at the [facility] about 4 weeks ago due to metastatic breast cancer patient was seen in the ER and evaluated and she ended up admitted to the hospital for COPD exacerbation and pulmonary consultation Consultation was obtained. 08/28: Patient states that her breathing status is a little better from yesterday. She has having more anxiety and nurse also verbalizes increased anxiety for which Ativan will be increased to twice daily as needed. Consult in for pulmonary medicine. We will keep Solu-Medrol 60 mg IV every 6 hours. White count is normal, creatinine 0.46, blood sugar pressure running between 94 and 155. She has been afebrile, vital signs stable, pulse ox 93% on room air. Blood culture showing no growth. 08/29: Patient has been seen by Dr. Lopez with recommendations to continue current treatment and will continue to follow. Pulse ox is 94% on 3 L, vital signs of been stable and patient afebrile. Patient is concerned because her shortness of breath is not getting better. She is now on 3 L today. Contacted Celsa SHIRLEY ([phone]) at [facility] and recommending holding patient's Ibrance until she starts feeling better. The patient is in agreement with this plan. 08/30: Patient continues to have shortness of breath with not much improvement. She is on Solu-Medrol 40 mg every 8 hours which will not be changed. She is also on DuoNeb and Symbicort. She is currently off Ibrance. Patient is complaining of right nasal cavity and saline nasal spray added. 08/31: Patient complaints of shortness of breath with minimal activity in her room. She has continued cough that is mostly nonproductive. We will plan to continue Solu-Medrol 40 mg every 8 hours. She is normally on home O2 at 3 L. Pulse ox is 92% on 3 L. She has had a bowel movement. No pedal edema. She is eating and drinking without difficulty. No nausea or vomiting. Patient will be started on nystatin for thrush. 09/01: Patient states that her breathing is at least 50% better from yesterday. She states she walked in Hospital several times last night and also couple times this morning. She has been cleared for discharge from pulmonary medicine. Patient will be discharged home today in stable condition. Discharge Plan: 1. Acute on chronic hypoxic respiratory failure secondary to acute exacerbation of COPD. 2. Breast cancer with bilateral mastectomy right for primary breast cancer left for prophylactic reasons with a recent Total abdominal hysterectomy and bilateral salpingoophorectomy due to metastatic breast cancer 3. Hypertension and hypertensive cardiovascular disease. 4. Recurrent depression. 5. Generalized anxiety disorder. 6. Alysha syndrome. 7. Oral thrush. Discharge plan: Return home Impression and plan of care have been directed as dictated by the signing physician. Arleen Gamez nurse practitioner acting as scribe for signing physician. Patient Condition at Discharge: Good Plan - Discharge Summary New Discharge Prescriptions: New Nystatin 100,000 Unit/ml Susp [Mycostatin Oral Susp] 500,000 unit PO QID #40 cup predniSONE 0 mg PO DIRECTED #40 tab Continue Budesonide-Formot 160-4.5 Mcg [Symbicort 160-4.5 Mcg Inhaler] 2 puff INHALATION RT-BID Anastrozole [Arimidex] 1 mg PO DAILY #30 tab Albuterol Inhaler [Ventolin Hfa Inhaler] 2 puff INHALATION RT-Q6H PRN PRN Reason: Shortness Of Breath Venlafaxine HCl [Effexor XR] 150 mg PO DAILY Omeprazole 20 mg PO BID Albuterol Nebulized [Ventolin Nebulized] 2.5 mg INHALATION RT-QID guaiFENesin [Mucinex] 600 mg PO BID Tiotropium 18 Mcg/Puff [Spiriva] 2 puff INHALATION RT-DAILY Ibuprofen [Motrin] 600 mg PO Q6HR PRN PRN Reason: Pain ARIPiprazole [Abilify] 2 mg PO HS amLODIPine [Norvasc] 10 mg PO DAILY Promethazine [Phenergan] 25 mg PO QID PRN PRN Reason: Nausea Palbociclib [Ibrance] 125 mg PO DIRECTED Azithromycin [Zithromax Z-pack] See Taper PO DAILY Cholecalciferol [Vitamin D3] 400 unit PO DAILY Calcium Carbonate [Calcium] 1,200 mg PO DAILY clonazePAM [KlonoPIN] 1 mg PO TID PRN PRN Reason: Anxiety Cetirizine HCl [Zyrtec] 10 mg PO HS Metoclopramide [Reglan] 10 mg PO DAILY PRN PRN Reason: Gi Upset Discharge Medication List Budesonide-Formot 160-4.5 Mcg [Symbicort 160-4.5 Mcg Inhaler] 2 puff INHALATION RT-BID 03/28/14 [History] Anastrozole [Arimidex] 1 mg PO DAILY #30 tab 04/02/14 [Rx] Albuterol Inhaler [Ventolin Hfa Inhaler] 2 puff INHALATION RT-Q6H PRN 09/05/15 [ History] Omeprazole 20 mg PO BID 09/05/15 [History] Venlafaxine HCl [Effexor XR] 150 mg PO DAILY 09/05/15 [History] Albuterol Nebulized [Ventolin Nebulized] 2.5 mg INHALATION RT-QID 08/12/17 [ History] guaiFENesin [Mucinex] 600 mg PO BID 08/12/17 [History] Tiotropium 18 Mcg/Puff [Spiriva] 2 puff INHALATION RT-DAILY 06/27/18 [History] ARIPiprazole [Abilify] 2 mg PO HS 08/04/18 [History] Ibuprofen [Motrin] 600 mg PO Q6HR PRN 08/04/18 [History] Azithromycin [Zithromax Z-pack] See Taper PO DAILY 08/27/18 [History] Palbociclib [Ibrance] 125 mg PO DIRECTED 08/27/18 [History] Promethazine [Phenergan] 25 mg PO QID PRN 08/27/18 [History] amLODIPine [Norvasc] 10 mg PO DAILY 08/27/18 [History] Calcium Carbonate [Calcium] 1,200 mg PO DAILY 08/28/18 [History] Cetirizine HCl [Zyrtec] 10 mg PO HS 08/28/18 [History] Cholecalciferol [Vitamin D3] 400 unit PO DAILY 08/28/18 [History] Metoclopramide [Reglan] 10 mg PO DAILY PRN 08/28/18 [History] clonazePAM [KlonoPIN] 1 mg PO TID PRN 08/28/18 [History] Nystatin 100,000 Unit/ml Susp [Mycostatin Oral Susp] 500,000 unit PO QID #40 cup 09/01/18 [Rx] predniSONE 0 mg PO DIRECTED #40 tab 09/01/18 [Rx] Follow up Appointment(s)/Referral(s): Sanjay Alberts DO [Primary Care Provider] - 10/06/18 10:45 am Brit Cross MD [STAFF PHYSICIAN] - 09/21/18 3:45 pm Patient Instructions/Handouts: Prednisone (By mouth), Nystatin (By mouth), COPD (Chronic Obstructive Pulmonary Disease) (DC) Discharge Disposition: HOME SELF-CARE
[2018-09-02] MEDS ORDERED: predniSONE 20 MG TAB PO SCH (09:00)
== END 2018-09-01 13:24 | disposition home or self-care (01) | DRG 190 ==
LOC: EC 23:10 → 4MS4W 08-27 01:50 → 3NMEDONC 08-27 04:15 → OBSVTOIN 08-27 11:05
PROVIDERS: ADMIT Internal Medicine; ATTEND Internal Medicine
DX: J44.1 Chronic obstructive pulmonary disease with (acute) exacerbation (principal); J96.21 Acute and chronic respiratory failure with hypoxia; J90 Pleural effusion, not elsewhere classified; F33.9 Major depressive disorder, recurrent, unspecified; B37.0 Candidal stomatitis; C50.919 Malignant neoplasm of unspecified site of unspecified female breast; E78.5 Hyperlipidemia, unspecified; G90.2 Horner's syndrome; I11.9 Hypertensive heart disease without heart failure; K21.9 Gastro-esophageal reflux disease without esophagitis; Z79.51 Long term (current) use of inhaled steroids; Z79.811 Long term (current) use of aromatase inhibitors; Z79.899 Other long term (current) drug therapy; Z80.1 Family history of malignant neoplasm of trachea, bronchus and lung; Z85.3 Personal history of malignant neoplasm of breast; Z87.891 Personal history of nicotine dependence; Z90.13 Acquired absence of bilateral breasts and nipples; Z90.710 Acquired absence of both cervix and uterus; Z92.3 Personal history of irradiation; Z99.81 Dependence on supplemental oxygen; Z88.8 Allergy status to other drugs, medicaments and biological substances; F41.1 Generalized anxiety disorder
CPT/HCPCS: 36415; 71046; 80048; 80053; 82550; 82553; 83735; 83880; 84484; 85025; 85610; 85730; 87040; 93005; 94640; 94760; 96361; 96374; 99285

== ENCOUNTER 2018-09-14 11:46 | Emergency (ER) | payer MEDICARE ==
[2018-09-14 12:39] VITALS: TEMP 98.4
[2018-09-14] MEDS ORDERED: ALBUTEROL NEBULIZED 2.5 MG/3 ML INHALATION STA (13:02)
[2018-09-14] MEDS ORDERED: IPRATROPIUM-ALBUTEROL 3 ML NEB INHALATION STA (13:02)
[2018-09-14] MEDS ORDERED: SODIUM CHLORIDE 0.9% 500 ML 500 ML IV ONE (13:02)
--- NOTE | 2018-09-14 13:04 | ED ---
General Adult HPI - General Chief complaint: Shortness of Breath Stated complaint: SOB Time Seen by Provider: 09/14/18 12:51 Source: patient, RN notes reviewed, old records reviewed Mode of arrival: wheelchair Limitations: no limitations - History of Present Illness Initial comments: 57-year-old female history of COPD and metastatic breast cancer currently on treatment presents for evaluation of cough and dyspnea. Patient was admitted to this hospital approximately 2 weeks ago, discharged one week ago. She was treated for COPD exacerbation at that time. She has had worsening cough which has regressed to productive cough with green sputum. No fever or chills. She has some chest tightness, no central chest pain. No abdominal pain nausea vomiting. No calf tenderness. - Related Data Home Medications Medication Instructions Recorded Confirmed Budesonide-Formot 160-4.5 Mcg 2 puff INHALATION RT-BID 03/28/14 09/14/18 [Symbicort 160-4.5 Mcg Inhaler] Albuterol Inhaler [Ventolin Hfa 2 puff INHALATION RT-Q6H PRN 09/05/15 09/14/18 Inhaler] Omeprazole 20 mg PO BID 09/05/15 09/14/18 Venlafaxine HCl [Effexor XR] 150 mg PO DAILY 09/05/15 09/14/18 Albuterol Nebulized [Ventolin 2.5 mg INHALATION RT-QID 08/12/17 09/14/18 Nebulized] guaiFENesin [Mucinex] 600 mg PO BID 08/12/17 09/14/18 Tiotropium 18 Mcg/Puff [Spiriva] 2 puff INHALATION RT-DAILY 06/27/18 09/14/18 ARIPiprazole [Abilify] 2 mg PO HS 08/04/18 09/14/18 Ibuprofen [Motrin] 600 mg PO Q6HR PRN 08/04/18 09/14/18 Azithromycin [Zithromax Z-pack] See Taper PO DAILY 08/27/18 09/14/18 Palbociclib [Ibrance] 125 mg PO DIRECTED 08/27/18 09/14/18 amLODIPine [Norvasc] 10 mg PO DAILY 08/27/18 09/14/18 Calcium Carbonate [Calcium] 1,200 mg PO DAILY 08/28/18 09/14/18 Cetirizine HCl [Zyrtec] 10 mg PO HS 08/28/18 09/14/18 Cholecalciferol [Vitamin D3] 400 unit PO DAILY 08/28/18 09/14/18 Metoclopramide [Reglan] 10 mg PO DAILY PRN 08/28/18 09/14/18 clonazePAM [KlonoPIN] 1 mg PO TID PRN 08/28/18 09/14/18 Docusate [Colace] 100 mg PO HS 09/14/18 09/14/18 Previous Rx's Medication Instructions Recorded Nystatin 100,000 Unit/ml Susp 500,000 unit PO QID #40 cup 09/01/18 [Mycostatin Oral Susp] predniSONE 0 mg PO DIRECTED #40 tab 09/01/18 predniSONE 50 mg PO DAILY #5 tab 09/14/18 Allergies Allergy/AdvReac Type Severity Reaction Status Date / Time levofloxacin Allergy Rash/Hives Verified 09/14/18 13:32 ondansetron HCl AdvReac Severe Increased Verified 09/14/18 13:32 [From Zofran (as QT interval hydrochloride)] prochlorperazine edisylate AdvReac Severe Increased Verified 09/14/18 13:32 [From Compazine] QT interval prochlorperazine maleate AdvReac Severe Increased Verified 09/14/18 13:32 [From Compazine] QT Interval Review of Systems ROS Statement: Those systems with pertinent positive or pertinent negative responses have been documented in the HPI. ROS Other: All systems not noted in ROS Statement are negative. Past Medical History Past Medical History: Cancer, COPD, GERD/Reflux, GI Bleed, Hypertension, Pneumonia Additional Past Medical History / Comment(s): COPD, baseline FEV1 of 37% of predicted consistent with severe COPD, metastatic breast cancer, hypertension, cyclic vomiting syndrome, lymphedema of the right upper extremity related to previous breast surgery, chronic sinus disease, history of QT prolongation secondary to antibiotic use. 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 History of Any Multi-Drug Resistant Organisms: None Reported Past Surgical History: Hysterectomy Additional Past Surgical History / Comment(s): Cone biopsy at age 22 years of age, multiple colonoscopies and EGDs. Thoracoscopy with minimal thoracotomy and pleural biopsy, D&C.. bilateral mastectomy and lymph nodeectomy, LT and RT THUMB TRIGGER FINGER SX, LT KNEE ARTHROSOCPY X2 , LT ACL REPAIR Past Anesthesia/Blood Transfusion Reactions: Postoperative Nausea & Vomiting ( PONV) Past Psychological History: Anxiety, Depression Smoking Status: Former smoker Past Alcohol Use History: Rare Past Drug Use History: None Reported - Past Family History Father Family Medical History: Cancer Additional Family Medical History / Comment(s): Patient reports her father of lung cancer at age 59. Brother(s) Additional Family Medical History / Comment(s): Patient has to penicillin major medical problems. Patient has 2 sisters with no major medical problems. Patient has one daughter with no major medical problems. Mother Additional Family Medical History / Comment(s): MOM IS HEALTHY AT AGE 80 General Exam Limitations: no limitations General appearance: alert, in no apparent distress Head exam: Present: atraumatic, normocephalic Eye exam: Present: normal appearance, PERRL ENT exam: Present: normal exam Neck exam: Present: normal inspection. Absent: tenderness, meningismus Respiratory exam: Present: respiratory distress, wheezes, rhonchi Cardiovascular Exam: Present: regular rate, normal rhythm GI/Abdominal exam: Present: soft. Absent: distended, tenderness Extremities exam: Present: normal inspection, normal capillary refill. Absent: pedal edema, calf tenderness Neurological exam: Present: alert, oriented X3, CN II-XII intact. Absent: motor sensory deficit Psychiatric exam: Present: normal affect, normal mood Skin exam: Present: warm, dry, intact. Absent: cyanosis, diaphoretic Course Vital Signs 09/14/18 09/14/18 09/14/18 12:37 13:45 14:06 Temperature 98.4 F Pulse Rate 85 86 84 Respiratory 18 Rate Blood Pressure 125/80 O2 Sat by Pulse 96 Oximetry 09/14/18 15:51 Temperature Pulse Rate 92 Respiratory 18 Rate Blood Pressure 133/94 O2 Sat by Pulse 94 L Oximetry EKG Findings - EKG Comments: EKG Findings:: EKG: Sinus rhythm, PVC, rate of 86, NC interval 114, QRS duration 80, QTc 466, no ST segment changes Medical Decision Making - Medical Decision Making 57-year-old female history of COPD and metastatic breast cancer currently on treatment presenting with dyspnea. Patient's dyspnea has been progressive over weeks, she was admitted however this did not improve her symptoms. She has normal CBC, normal CMP with the exception of a elevated CO2 likely secondary to chronic obstruction, normal lactic acid, normal BMP, negative troponin, she does have a significantly elevated d-dimer, CT angiography is obtained which shows chronic changes, no pulmonary embolism, no pneumonia. Patient is only feeling somewhat better after steroids, and albuterol treatment. She is eager for discharge, she wishes to be discharged that she can follow-up at the [facility] tomorrow. This is where she is currently receiving her cancer treatment. - Lab Data Result diagrams: 09/14/18 13:11 09/14/18 13:11 Lab Results 09/14/18 09/14/18 09/14/18 Range/Units 13:11 13:11 13:11 WBC 4.4 (3.8-10.6) k/uL RBC 3.88 (3.80-5.40) m/uL Hgb 11.7 (11.4-16.0) gm/dL Hct 36.5 (34.0-46.0) % MCV 93.9 (80.0-100.0) fL MCH 30.3 (25.0-35.0) pg MCHC 32.2 (31.0-37.0) g/dL RDW 15.3 (11.5-15.5) % Plt Count 283 (150-450) k/uL Neutrophils % 69 % Lymphocytes % 23 % Monocytes % 2 % Eosinophils % 2 % Basophils % 1 % Neutrophils # 3.0 (1.3-7.7) k/uL Lymphocytes # 1.0 (1.0-4.8) k/uL Monocytes # 0.1 (0-1.0) k/uL Eosinophils # 0.1 (0-0.7) k/uL Basophils # 0.0 (0-0.2) k/uL PT (9.0-12.0) sec INR (<1.2) APTT (22.0-30.0) sec D-Dimer (<0.60) mg/L FEU Sodium 137 (137-145) mmol/L Potassium 4.1 (3.5-5.1) mmol/L Chloride 96 L (98-107) mmol/L Carbon Dioxide 32 H (22-30) mmol/L Anion Gap 9 mmol/L BUN 16 (7-17) mg/dL Creatinine 0.44 L (0.52-1.04) mg/dL Est GFR (CKD-EPI)AfAm >90 (>60 ml/min/1.73 sqM) Est GFR (CKD-EPI)NonAf >90 (>60 ml/min/1.73 sqM) Glucose 125 H (74-99) mg/dL Plasma Lactic Acid Charles (0.7-2.0) mmol/L Calcium 9.0 (8.4-10.2) mg/dL Magnesium 1.8 (1.6-2.3) mg/dL Total Bilirubin 0.4 (0.2-1.3) mg/dL AST 21 (14-36) U/L ALT 29 (9-52) U/L Alkaline Phosphatase 65 (38-126) U/L Total Creatine Kinase 34 (30-135) U/L CK-MB (CK-2) 1.2 (0.0-2.4) ng/mL CK-MB (CK-2) Rel Index 3.5 Troponin I <0.012 (0.000-0.034) ng/mL NT-Pro-B Natriuret Pep pg/mL Total Protein 6.6 (6.3-8.2) g/dL Albumin 3.9 (3.5-5.0) g/dL Influenza Type A RNA (Not Detectd) Influenza Type B (PCR) (Not Detectd) 09/14/18 09/14/18 09/14/18 Range/Units 13:11 13:11 13:11 WBC (3.8-10.6) k/uL RBC (3.80-5.40) m/uL Hgb (11.4-16.0) gm/dL Hct (34.0-46.0) % MCV (80.0-100.0) fL MCH (25.0-35.0) pg MCHC (31.0-37.0) g/dL RDW (11.5-15.5) % Plt Count (150-450) k/uL Neutrophils % % Lymphocytes % % Monocytes % % Eosinophils % % Basophils % % Neutrophils # (1.3-7.7) k/uL Lymphocytes # (1.0-4.8) k/uL Monocytes # (0-1.0) k/uL Eosinophils # (0-0.7) k/uL Basophils # (0-0.2) k/uL PT 9.7 (9.0-12.0) sec INR 0.9 (<1.2) APTT 22.7 (22.0-30.0) sec D-Dimer (<0.60) mg/L FEU Sodium (137-145) mmol/L Potassium (3.5-5.1) mmol/L Chloride (98-107) mmol/L Carbon Dioxide (22-30) mmol/L Anion Gap mmol/L BUN (7-17) mg/dL Creatinine (0.52-1.04) mg/dL Est GFR (CKD-EPI)AfAm (>60 ml/min/1.73 sqM) Est GFR (CKD-EPI)NonAf (>60 ml/min/1.73 sqM) Glucose (74-99) mg/dL Plasma Lactic Acid Charles 1.1 (0.7-2.0) mmol/L Calcium (8.4-10.2) mg/dL Magnesium (1.6-2.3) mg/dL Total Bilirubin (0.2-1.3) mg/dL AST (14-36) U/L ALT (9-52) U/L Alkaline Phosphatase (38-126) U/L Total Creatine Kinase (30-135) U/L CK-MB (CK-2) (0.0-2.4) ng/mL CK-MB (CK-2) Rel Index Troponin I (0.000-0.034) ng/mL NT-Pro-B Natriuret Pep 84 pg/mL Total Protein (6.3-8.2) g/dL Albumin (3.5-5.0) g/dL Influenza Type A RNA (Not Detectd) Influenza Type B (PCR) (Not Detectd) 09/14/18 09/14/18 Range/Units 13:11 13:11 WBC (3.8-10.6) k/uL RBC (3.80-5.40) m/uL Hgb (11.4-16.0) gm/dL Hct (34.0-46.0) % MCV (80.0-100.0) fL MCH (25.0-35.0) pg MCHC (31.0-37.0) g/dL RDW (11.5-15.5) % Plt Count (150-450) k/uL Neutrophils % % Lymphocytes % % Monocytes % % Eosinophils % % Basophils % % Neutrophils # (1.3-7.7) k/uL Lymphocytes # (1.0-4.8) k/uL Monocytes # (0-1.0) k/uL Eosinophils # (0-0.7) k/uL Basophils # (0-0.2) k/uL PT (9.0-12.0) sec INR (<1.2) APTT (22.0-30.0) sec D-Dimer 3.10 H (<0.60) mg/L FEU Sodium (137-145) mmol/L Potassium (3.5-5.1) mmol/L Chloride (98-107) mmol/L Carbon Dioxide (22-30) mmol/L Anion Gap mmol/L BUN (7-17) mg/dL Creatinine (0.52-1.04) mg/dL Est GFR (CKD-EPI)AfAm (>60 ml/min/1.73 sqM) Est GFR (CKD-EPI)NonAf (>60 ml/min/1.73 sqM) Glucose (74-99) mg/dL Plasma Lactic Acid Charles (0.7-2.0) mmol/L Calcium (8.4-10.2) mg/dL Magnesium (1.6-2.3) mg/dL Total Bilirubin (0.2-1.3) mg/dL AST (14-36) U/L ALT (9-52) U/L Alkaline Phosphatase (38-126) U/L Total Creatine Kinase (30-135) U/L CK-MB (CK-2) (0.0-2.4) ng/mL CK-MB (CK-2) Rel Index Troponin I (0.000-0.034) ng/mL NT-Pro-B Natriuret Pep pg/mL Total Protein (6.3-8.2) g/dL Albumin (3.5-5.0) g/dL Influenza Type A RNA Not Detected (Not Detectd) Influenza Type B (PCR) Not Detected (Not Detectd) Disposition Clinical Impression: COPD exacerbation, Metastatic breast cancer Disposition: HOME SELF-CARE Condition: Fair Instructions: Chronic Bronchitis (ED) Prescriptions: predniSONE 50 mg PO DAILY #5 tab Is patient prescribed a controlled substance at d/c from ED?: No Referrals: Sanjay Alberts DO [Primary Care Provider] - 1-2 days Time of Disposition: 16:30
[2018-09-14] MEDS ORDERED: SODIUM CHLORIDE 0.9% 1,000 ML IV SCH (13:15)
--- NOTE | 2018-09-14 13:49 | XR ---
EXAMINATION TYPE: XR chest 2V DATE OF EXAM: 09/14/2018 COMPARISON: Prior chest x-ray 08/27/2018 HISTORY: Difficulty breathing, shortness of breath and stage IV, breast carcinoma TECHNIQUE: Frontal and lateral views of the chest are obtained. FINDINGS: Technique is apical lordotic and rotated. Postop changes are stable, bilateral breast prost heses. Pleural parenchymal changes in the right hemithorax show similar appearance. There is no evide nt pneumothorax. Cardiomediastinal silhouette, pulmonary vascularity and iza felt to be stable accou nting for differences in technique. Some minimal blunting the costophrenic angles is again noted. The re is hyperinflation of the left hemithorax. Finding loss noted in the right hemithorax. There is a spinal curvature. IMPRESSION: Findings are similar to prior exam. Postop change, posttreatment change. Probable areas of scarring in the right hemithorax. No definite pleural effusion.
[2018-09-14 14:11] LABS: Basophils % (A) 1 %; Eosinophils # (A) 0.1 k/uL (0-0.7); Eosinophils % (A) 2 %; HCT 36.5 % (34.0-46.0); HGB 11.7 gm/dL (11.4-16.0); Lymphocytes % (A) 23 %; MCH 30.3 pg (25.0-35.0); MCHC 32.2 g/dL (31.0-37.0); MCV 93.9 fL (80.0-100.0); Mean Platelet Volume 6.7; Monocytes # (A) 0.1 k/uL (0-1.0); Monocytes % (A) 2 %; Neutrophils % (A) 69 %; Platelet Count 283 k/uL (150-450); RBC 3.88 m/uL (3.80-5.40); RDW 15.3 % (11.5-15.5); WBC 4.4 k/uL (3.8-10.6)
[2018-09-14 14:21] LABS: Glucose 125 mg/dL (74-99)
[2018-09-14 14:22] LABS: ALT 29 U/L (9-52); AST 21 U/L (14-36); Albumin 3.9 g/dL (3.5-5.0); Alkaline Phosphatase 65 U/L (38-126); Anion Gap 9 mmol/L; Blood Urea Nitrogen 16 mg/dL (7-17); Carbon Dioxide 32 mmol/L (22-30); Chloride 96 mmol/L (98-107); Magnesium 1.8 mg/dL (1.6-2.3); Potassium 4.1 mmol/L (3.5-5.1); Sodium 137 mmol/L (137-145); Total Bilirubin 0.4 mg/dL (0.2-1.3); Total Protein 6.6 g/dL (6.3-8.2)
[2018-09-14 14:27] LABS: INR 0.9 (<1.2); Partial Thromboplastin Time 22.7 sec (22.0-30.0); Prothrombin Time 9.7 sec (9.0-12.0)
[2018-09-14 14:29] LABS: Creatine Kinase 34 U/L (30-135)
[2018-09-14 14:42] LABS: Creatine Kinase MB 1.2 ng/mL (0.0-2.4); Troponin I <0.012 ng/mL (0.000-0.034)
[2018-09-14] MEDS ORDERED: DEXAMETHASONE SOD PHOSPHATE 10 MG/ML 1 ML VIAL IV STA (15:03)
--- NOTE | 2018-09-14 16:12 | CT ---
EXAMINATION TYPE: CT angio chest DATE OF EXAM: 09/14/2018 COMPARISON: 08/04/2018 HISTORY: 57-year-old female Chest pain and shortness of breath. Post op hysterectomy 6 weeks TECHNIQUE: Contiguous axial scanning of the chest performed with IV Contrast, patient injected with 1 00 mL of Isovue 370. Coronal/sagittal MIP reconstructions performed. CT DLP: 179.2 mGycm Automated exposure control for dose reduction was used. FINDINGS: Bilateral breast reconstructions. Heart normal size without pericardial effusion. Aorta normal caliber with conventional arch vessel branching anatomy. Prominent 1.3 cm subcarinal lymph node seems stable with some prominent peribronchial vascular opacit y at the right hilum, unchanged. Satisfactory opacification of the pulmonary artery system without evidence for pulmonary embolus. Mild centrilobular emphysema. Extensive strandy scarring anterior right midlung with subpleural areas of reticulation and some irregular pleural-based thickening along the superior to mid aspect of the major fissure. Band of scarring along the posterior right base. No new consolidation or pleural effus ion seen. Visualized upper abdomen shows no gross abnormality. Bones: Superior endplate deformity of T6 shows slightly more sclerosis may be a subacute injury as it is not seen in retrospect on 05/08/2018. IMPRESSION: 1. NO EVIDENCE FOR PULMONARY EMBOLUS. 2. MINIMALLY DEPRESSED SUPERIOR ENDPLATE FRACTURE OF T6, SUSPECTED SUBACUTE INJURY. CORRELATE FOR ANY FOCAL PAIN AT THIS LEVEL. 3. EXTENSIVE CHRONIC SCARRING AND POSTTREATMENT CHANGES IN THE RIGHT LUNG WITH BILATERAL BREAST RECON STRUCTIONS. 4. STABLE PROMINENT BUT NONENLARGED 1.3 CM SUBCARINAL LYMPH NODE AND SOME STABLE MILDLY PROMINENT LYM PHOID TISSUE AT THE RIGHT HILUM.
[2018-09-14 16:54] VITALS: BP 132/100; PULSE 91; RESP 20
== END 2018-09-14 16:53 | disposition home or self-care (01) ==
LOC: EC 11:46
DX: J44.1 Chronic obstructive pulmonary disease with (acute) exacerbation (principal); C79.81 Secondary malignant neoplasm of breast; R79.1 Abnormal coagulation profile; I10 Essential (primary) hypertension; K21.9 Gastro-esophageal reflux disease without esophagitis; F32.9 Major depressive disorder, single episode, unspecified; F41.9 Anxiety disorder, unspecified; G90.2 Horner's syndrome; Z87.891 Personal history of nicotine dependence; Z88.1 Allergy status to other antibiotic agents; Z88.8 Allergy status to other drugs, medicaments and biological substances; Z79.51 Long term (current) use of inhaled steroids; Z79.52 Long term (current) use of systemic steroids; Z79.899 Other long term (current) drug therapy; Z90.13 Acquired absence of bilateral breasts and nipples; Z85.9 Personal history of malignant neoplasm, unspecified; Z80.1 Family history of malignant neoplasm of trachea, bronchus and lung
CPT/HCPCS: 36415; 94640; 93005; 85379; 83880; 80053; 82550; 82553; 83605; 83735; 84484; 85025; 85610; 85730; 87040; 87502; 71046; 71275; 99285; 96374; 96361 ×2; J1100; Q9967

== ENCOUNTER 2018-10-19 09:06 | Inpatient (IN) | payer MEDICARE ==
[2018-10-19] MEDS ORDERED: SODIUM CHLORIDE 0.9% 500 ML 500 ML IV STA (09:38)
[2018-10-19] MEDS ORDERED: MORPHINE SULFATE 4 MG/ML SYRINGE IV STA (09:38)
--- NOTE | 2018-10-19 09:43 | ED ---
General Adult HPI - General Chief complaint: Back Pain/Injury Stated complaint: back pain Time Seen by Provider: 10/19/18 09:24 Source: patient, RN notes reviewed Mode of arrival: wheelchair Limitations: no limitations - History of Present Illness Initial comments: Patient is a pleasant 57-year-old female presenting to the emergency Department with complaints of thoracic back pain. Onset of symptoms was 3 days ago. Patient was turning while getting out of bed with some discomfort in the mid thoracic region. Patient has had discomfort since that time. Discomfort is positional. Discomfort does increase with certain movements. No shortness of breath. No chest pain. No leg weakness. No comments or retention of bowel or bladder. Patient does have scoliosis however does not normally get back pain. - Related Data Home Medications Medication Instructions Recorded Confirmed Budesonide-Formot 160-4.5 Mcg 2 puff INHALATION RT-BID 03/28/14 10/19/18 [Symbicort 160-4.5 Mcg Inhaler] Albuterol Inhaler [Ventolin Hfa 2 puff INHALATION RT-Q6H PRN 09/05/15 10/19/18 Inhaler] Omeprazole 20 mg PO BID 09/05/15 10/19/18 Venlafaxine HCl [Effexor XR] 150 mg PO DAILY 09/05/15 10/19/18 Albuterol Nebulized [Ventolin 2.5 mg INHALATION RT-QID 08/12/17 10/19/18 Nebulized] Tiotropium 18 Mcg/Puff [Spiriva] 2 puff INHALATION RT-DAILY 06/27/18 10/19/18 Ibuprofen [Motrin] 600 mg PO Q6HR PRN 08/04/18 10/19/18 Palbociclib [Ibrance] 125 mg PO DIRECTED 08/27/18 10/19/18 amLODIPine [Norvasc] 10 mg PO DAILY 08/27/18 10/19/18 Calcium Carbonate [Calcium] 1,200 mg PO DAILY 08/28/18 10/19/18 Cetirizine HCl [Zyrtec] 10 mg PO HS 08/28/18 10/19/18 Cholecalciferol [Vitamin D3] 400 unit PO DAILY 08/28/18 10/19/18 Metoclopramide [Reglan] 10 mg PO DAILY PRN 08/28/18 10/19/18 Allergies Allergy/AdvReac Type Severity Reaction Status Date / Time levofloxacin Allergy Rash/Hives Verified 10/19/18 09:30 ondansetron HCl AdvReac Severe Increased Verified 10/19/18 09:30 [From Zofran (as QT interval hydrochloride)] prochlorperazine edisylate AdvReac Severe Increased Verified 10/19/18 09:30 [From Compazine] QT interval prochlorperazine maleate AdvReac Severe Increased Verified 10/19/18 09:30 [From Compazine] QT Interval Review of Systems ROS Statement: Those systems with pertinent positive or pertinent negative responses have been documented in the HPI. ROS Other: All systems not noted in ROS Statement are negative. Constitutional: Denies: fever Eyes: Denies: eye pain ENT: Denies: ear pain Respiratory: Denies: cough, dyspnea Cardiovascular: Denies: chest pain Endocrine: Denies: fatigue Gastrointestinal: Denies: abdominal pain Genitourinary: Denies: dysuria Musculoskeletal: Reports: as per HPI, back pain Skin: Denies: rash Neurological: Denies: weakness Past Medical History Past Medical History: Cancer, COPD, GERD/Reflux, GI Bleed, Hypertension, Pneumonia Additional Past Medical History / Comment(s): COPD, baseline FEV1 of 37% of predicted consistent with severe COPD, metastatic breast cancer, hypertension, cyclic vomiting syndrome, lymphedema of the right upper extremity related to previous breast surgery, chronic sinus disease, history of QT prolongation secondary to antibiotic use. 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 History of Any Multi-Drug Resistant Organisms: None Reported Past Surgical History: Hysterectomy Additional Past Surgical History / Comment(s): Cone biopsy at age 22 years of age, multiple colonoscopies and EGDs. Thoracoscopy with minimal thoracotomy and pleural biopsy, D&C.. bilateral mastectomy and lymph nodeectomy, LT and RT THUMB TRIGGER FINGER SX, LT KNEE ARTHROSOCPY X2 , LT ACL REPAIR Past Anesthesia/Blood Transfusion Reactions: Postoperative Nausea & Vomiting ( PONV) Past Psychological History: Anxiety, Depression Smoking Status: Former smoker Past Alcohol Use History: Rare Past Drug Use History: None Reported - Past Family History Father Family Medical History: Cancer Additional Family Medical History / Comment(s): Patient reports her father of lung cancer at age 59. Brother(s) Additional Family Medical History / Comment(s): Patient has to penicillin major medical problems. Patient has 2 sisters with no major medical problems. Patient has one daughter with no major medical problems. Mother Additional Family Medical History / Comment(s): MOM IS HEALTHY AT AGE 80 General Exam Limitations: no limitations General appearance: alert, in no apparent distress Head exam: Present: atraumatic Eye exam: Present: normal appearance, PERRL ENT exam: Present: normal oropharynx Neck exam: Present: normal inspection Respiratory exam: Present: normal lung sounds bilaterally. Absent: chest wall tenderness Cardiovascular Exam: Present: regular rate, normal rhythm Expanded Peripheral pulses: 2+: Radial (R), Radial (L), Posterior Tibialis (R), Posterior Tibialis (L), Dorsalis Pedis (R), Dorsalis Pedis (L) GI/Abdominal exam: Present: soft. Absent: distended, tenderness Extremities exam: Present: normal inspection. Absent: pedal edema, calf tenderness Back exam: Present: tenderness (Mild tenderness to the mid thoracic region approximately T8 through T10 and parathoracic region.) Neurological exam: Present: alert. Absent: motor sensory deficit Expanded Motor strength exam: RUE: 5, LUE: 5, RLE: 5, LLE: 5 Psychiatric exam: Present: normal affect, normal mood Skin exam: Present: normal color Course Vital Signs 10/19/18 10/19/18 09:09 11:43 Temperature 98.3 F Pulse Rate 104 H 94 Respiratory 18 18 Rate Blood Pressure 105/68 116/86 O2 Sat by Pulse 96 99 Oximetry EKG Findings - EKG Comments: EKG Findings:: Normal sinus rhythm 97. IL 124. QRS 82. QT 358. QTC 44. [place] indeterminate. Normal QRS. No acute ST change. Medical Decision Making - Medical Decision Making Patient reevaluated and still having some discomfort despite 2 doses of medications. Patient would prefer to stay in the hospital. Case was discussed with practitioner Ada, covering with Dr. Meyer, who will admit. - Lab Data Result diagrams: 10/19/18 09:56 10/19/18 09:56 Lab Results 10/19/18 10/19/18 10/19/18 Range/Units 09:56 09:56 09:56 WBC 13.7 H (3.8-10.6) k/uL RBC 4.54 (3.80-5.40) m/uL Hgb 13.2 (11.4-16.0) gm/dL Hct 41.7 (34.0-46.0) % MCV 91.9 (80.0-100.0) fL MCH 29.0 (25.0-35.0) pg MCHC 31.6 (31.0-37.0) g/dL RDW 15.4 (11.5-15.5) % Plt Count 375 (150-450) k/uL Neutrophils % 84 % Lymphocytes % 8 % Monocytes % 6 % Eosinophils % 1 % Basophils % 0 % Neutrophils # 11.5 H (1.3-7.7) k/uL Lymphocytes # 1.0 (1.0-4.8) k/uL Monocytes # 0.8 (0-1.0) k/uL Eosinophils # 0.1 (0-0.7) k/uL Basophils # 0.0 (0-0.2) k/uL PT 10.3 (9.0-12.0) sec INR 1.0 (<1.2) APTT 26.8 (22.0-30.0) sec D-Dimer 1.03 H (<0.60) mg/L FEU Sodium 134 L (137-145) mmol/L Potassium 3.6 (3.5-5.1) mmol/L Chloride 95 L (98-107) mmol/L Carbon Dioxide 32 H (22-30) mmol/L Anion Gap 7 mmol/L BUN 14 (7-17) mg/dL Creatinine 0.51 L (0.52-1.04) mg/dL Est GFR (CKD-EPI)AfAm >90 (>60 ml/min/1.73 sqM) Est GFR (CKD-EPI)NonAf >90 (>60 ml/min/1.73 sqM) Glucose 148 H (74-99) mg/dL Calcium 9.5 (8.4-10.2) mg/dL Total Bilirubin 0.6 (0.2-1.3) mg/dL AST 18 (14-36) U/L ALT 24 (9-52) U/L Alkaline Phosphatase 84 (38-126) U/L Total Protein 6.9 (6.3-8.2) g/dL Albumin 4.2 (3.5-5.0) g/dL - Radiology Data Radiology results: report reviewed (Computed tomography scan of the chest shows vertebral compression fracture T10 proximal he 40% with minimal retropulsion without significant spinal canal stenosis. Paravertebral soft tissue swelling/ hematoma.), image reviewed (X-ray of the thoracic spine and chest x-ray shows suspicion for lower thoracic compression fracture.) Disposition Clinical Impression: Vertebral compression fracture Disposition: ADMITTED IP TO THIS HOSP Is patient prescribed a controlled substance at d/c from ED?: No Referrals: Sanjay Alberts DO [Primary Care Provider] - 1-2 days Decision Time: 13:38
[2018-10-19 10:11] LABS: Basophils % (A) 0 %; Eosinophils # (A) 0.1 k/uL (0-0.7); Eosinophils % (A) 1 %; HCT 41.7 % (34.0-46.0); HGB 13.2 gm/dL (11.4-16.0); Lymphocytes % (A) 8 %; MCHC 31.6 g/dL (31.0-37.0); MCV 91.9 fL (80.0-100.0); Monocytes # (A) 0.8 k/uL (0-1.0); Monocytes % (A) 6 %; Neutrophils # (A) 11.5 k/uL (1.3-7.7); Neutrophils % (A) 84 %; Platelet Count 375 k/uL (150-450); RBC 4.54 m/uL (3.80-5.40); RDW 15.4 % (11.5-15.5); WBC 13.7 k/uL (3.8-10.6)
[2018-10-19 10:25] LABS: ALT 24 U/L (9-52); AST 18 U/L (14-36); Albumin 4.2 g/dL (3.5-5.0); Alkaline Phosphatase 84 U/L (38-126); Anion Gap 7 mmol/L; Blood Urea Nitrogen 14 mg/dL (7-17); Calcium 9.5 mg/dL (8.4-10.2); Carbon Dioxide 32 mmol/L (22-30); Chloride 95 mmol/L (98-107); Glucose 148 mg/dL (74-99); Potassium 3.6 mmol/L (3.5-5.1); Sodium 134 mmol/L (137-145); Total Bilirubin 0.6 mg/dL (0.2-1.3); Total Protein 6.9 g/dL (6.3-8.2)
[2018-10-19 10:27] LABS: Partial Thromboplastin Time 26.8 sec (22.0-30.0); Prothrombin Time 10.3 sec (9.0-12.0)
--- NOTE | 2018-10-19 10:32 | XR ---
EXAMINATION TYPE: XR chest 2V DATE OF EXAM: 10/19/2018 COMPARISON: 09/14/2018 TECHNIQUE: PA and lateral views submitted. HISTORY: Pain FINDINGS: Heart is prominent. There is degenerative change of the spine. Within the mid to lower thoracic spine there appears to be a moderate compression fracture which was not seen on the previous chest x-ray. Linear band of density in the right upper lobe suggestive of scar or atelectasis and stable. Correlat e for hyperinflation and COPD. Surgical clips in the axilla noted. Chronic pleural thickening or tiny effusion on the right stable. IMPRESSION: 1. Chronic pleural-parenchymal changes. 2. There is a moderate compression fracture within the mid to lower thoracic spine not seen on the pr evious chest x-ray and therefore could be recent. Correlate clinically.
--- NOTE | 2018-10-19 10:33 | XR ---
EXAMINATION TYPE: XR thoracic spine complete DATE OF EXAM: 10/19/2018 COMPARISON: NONE HISTORY: Pain Alignment is anatomic. Multilevel degenerative disc disease. There is a moderate to severe compressio n fracture in the lower thoracic spine. Very mild loss of superior endplate height noted in the midth oracic spine. Incidental note made of degenerative changes lower cervical spine. IMPRESSION: 1. Moderate to severe compression fracture lower thoracic spine may be recent or new correlate clinic ally.
[2018-10-19] MEDS ORDERED: MORPHINE SULFATE 2 MG/ML SYRINGE IVP STA (11:09)
[2018-10-19 11:14] LABS: D-Dimer 1.03 mg/L FEU (<0.60)
[2018-10-19] MEDS ORDERED: MORPHINE SULFATE 4 MG/ML SYRINGE IVP STA ×2 (11:42→13:43)
--- NOTE | 2018-10-19 12:41 | CT ---
EXAMINATION TYPE: CT angio chest DATE OF EXAM: 10/19/2018 COMPARISON: 09/14/2018 and 05/16/2017 HISTORY: 57-year-old female Back pain. TECHNIQUE: Contiguous axial scanning of the chest performed with IV Contrast, patient injected with 1 00 mL of Isovue 370. Coronal/sagittal MIP reconstructions performed. CT DLP: 159.2 mGycm Automated exposure control for dose reduction was used. FINDINGS: Heart normal size without pericardial effusion. Aorta normal caliber with mild atherosclerotic arch calcifications. Satisfactory opacification of the pulmonary arterial system respiratory motion particularly in the ba silar lower lobes limiting assessment of inferior lingular and basilar lower lobe segmental and more distal arterial branches. Prominent pleural parenchymal scarring and bandlike opacities right upper lobe and also peripheral ri ght lower lobe are unchanged. However, some diffuse pleural-based thickening along the posterior and posteromedial right base may be slightly increased. Irregular subpleural focal thickening anterior right mid lung, axial image 55 has increased slightly in thickness, best appreciated on the coronal series. There is underlying mild centrilobular emphysema. Subpleural 4 mm nodularity peripheral left lower lobe, axial image 81 seen back on 05/16/2017. Bilateral breast implants. Bilateral axillary clips. Visualized upper abdomen shows no gross adenopathy. Bones: Stable pulmonary irregularity of the lateral right fifth rib as compared to 05/08/2017. Crowdin g of the right-sided ribs compatible with ipsilateral hemithoracic volume loss. There is new vertebral compression deformity of T10 with approximately 40% overall height loss and mi nimal retropulsion into the ventral spinal canal. Some fracture lucencies are seen and there is parav ertebral soft tissue thickening which is new. Mild superior endplate deformity of T7 is stable. Minimal superior endplate deformity of T5 redemonst rated. This may have slightly increased in the interval. IMPRESSION: 1. VERTEBRAL COMPRESSION FRACTURE OF T10 WITH APPROXIMATELY 40% OVERALL HEIGHT LOSS. THERE IS MINIMAL RETROPULSION INTO THE VENTRAL SPINAL CANAL WITHOUT SIGNIFICANT SPINAL CANAL STENOSIS. 2. ACUTE, ACUTE TO SUBACUTE FRACTURE IS SUSPECTED. PARAVERTEBRAL SOFT TISSUE SWELLING/HEMATOMA AT THI S LEVEL IS NEW. 3. SOME MOTION ARTIFACT AT THE LUNG BASES. NO DEFINITE PULMONARY EMBOLUS WITH LIMITATIONS IN ASSESSME NT OF SOME OF THE LOWER LUNG SEGMENTAL AND MORE DISTAL ARTERIAL BRANCHES. 4. BILATERAL BREAST IMPLANTS AND BILATERAL AXILLARY NODE DISSECTION. CHRONIC RIGHT-SIDED PLEURAL PARE NCHYMAL SCARRING, MILD PLEURAL RIND, AND RIGHT HEMITHORACIC VOLUME LOSS REDEMONSTRATED. SOME OF THE A REAS OF SUSPECTED SCARRING HAS SLIGHTLY INCREASED IN THICKNESS WHICH AN THE ANTERIOR RIGHT MIDLUNG AND POSTEROMEDIAL RIGHT BASE AND CAN CONTINUE TO BE REASSESSED AT FOLLOW-UP. PROGRESSIVE SCARRING BACA SPECTED.
[2018-10-19] MEDS ORDERED: NALOXONE 0.4 MG/ML 1 ML VIAL IV PRN (13:38)
[2018-10-19] MEDS: SODIUM CHLORIDE 0.9% 1,000 ML IV SCH (13:46)
[2018-10-19 14:14] VITALS: BMI 22.6
[2018-10-19] MEDS: HYDROmorphone 1 MG/ML 1 ML SYRINGE IVP PRN ×3 (14:55→21:26)
[2018-10-19] MEDS ORDERED: METOCLOPRAMIDE 10 MG TAB PO PRN (17:54)
[2018-10-19] MEDS ORDERED: ALBUTEROL NEBULIZED 2.5 MG/3 ML INHALATION PRN (17:54)
[2018-10-19] MEDS: LORATADINE 10 MG TAB PO SCH (19:58)
[2018-10-19] MEDS: SYMBICORT 160-4.5 MCG INHALER INHALATION SCH (20:14)
[2018-10-19] MEDS: ALBUTEROL NEBULIZED 2.5 MG/3 ML INHALATION SCH (20:14)
[2018-10-19] MEDS: PALBOCICLIB 125 MG PO SCH (23:26)
[2018-10-20] MEDS: IBUPROFEN 600 MG TAB PO PRN ×2 (01:26→11:11)
[2018-10-20] MEDS: HYDROmorphone 1 MG/ML 1 ML SYRINGE IVP PRN ×5 (01:27→20:42)
[2018-10-20] MEDS: SYMBICORT 160-4.5 MCG INHALER INHALATION SCH ×2 (07:21→19:19)
[2018-10-20] MEDS: ALBUTEROL NEBULIZED 2.5 MG/3 ML INHALATION SCH ×4 (07:21→19:19)
[2018-10-20] MEDS: IPRATROPIUM 0.5 MG/2.5 ML NEBU INHALATION SCH ×4 (07:21→19:22)
[2018-10-20] MEDS: CALCIUM CARBONATE 500 MG CHEWABLE PO SCH (08:34)
[2018-10-20] MEDS: CHOLECALCIFEROL 400 UNIT TAB PO SCH (08:34)
[2018-10-20] MEDS: PANTOPRAZOLE 40 MG TABLET PO SCH (08:34)
[2018-10-20] MEDS: amLODIPine 10 MG TAB PO SCH (08:34)
[2018-10-20] MEDS: VENLAFAXINE HCL ER 150 MG CAP PO SCH (08:34)
--- NOTE | 2018-10-20 12:38 | P.HPOR ---
History of Present Illness H&P Date: 10/20/18 Chief Complaint: Thoracic back pain Patient is a very pleasant 57-year-old female who is seen and examined at the bedside for exacerbation of back pain this past 10/08/2018. She states she was twisting bed when her legs did not did not follow her back and since that time she's had increased thoracic pain. She was planning to be seen in the outpatient setting but was unable to make that appointment due to her significant pain and presented to the emergency department. CT imaging of the chest showed evidence of T10 compression fracture deformity of approximately 40 % height loss. After my review there appears to be some bony changes at T5 and T7 at the superior endplate with slight wedging. She denies any lower extremity weakness or radiculopathy bilaterally. She does have increased pain with coughing and sneezing or any movements of the thoracic spine. Patient does have a significant medical history including current metastatic breast cancer. Patient states she was diagnosed with breast cancer in 2000 metastatic to right axillary lymph nodes and underwent bilateral mastectomy, lymph node resection, and subsequent breast augmentation. Her cancer was controlled and in remission until 2013 at which time she had recurrent metastatic disease to the right lung. She underwent medication over the course of the year which eradicated her cancer. She had been cancer free until this past May 2018 at which time she states she started to feel unlike herself. She was seen and examined by oncology in [place], [place] and she states imaging at that time showed multiple nodules. She states they were unwilling to do further testing after she was found to have multiple nodules as they wanted to wait longer for approximately 3 months before further evaluation. She did not feel she should wait for further evaluation and presented to [facility] for further evaluation. Further imaging shows metastatic cancer to the fallopian tubes and ovaries. She underwent a total hysterectomy in July 2018. She continues to follow with oncology at the [facility]. She states she is currently undergoing chemotherapy with oral medication. She also presents to the [facility] once per month for injections. She was scheduled to have an injection today, 10/20/2018. She states she has already talked with the oncology department and has rescheduled her appointment for next week. She also has COPD and is oxygen dependent. She's been on chronic steroids over the past 2 years. She does not regularly take pain medication outpatient setting. Her pain is severe at this time in regards to her thoracic spine. 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 History of Any Multi-Drug Resistant Organisms: None Reported Past Surgical History: Hysterectomy, Orthopedic Surgery Additional Past Surgical History / Comment(s): Cervical cone bx at age 22 yrs, bilateral mastectomies/multiple implants d/t ruptures, D&C, total hysterectomy, VAT/bx, infusaport-since removed, L ACL repair and multiple L knee arthroscopic surgeries, bilateral thumbs trigger finger surgeries, EGDS/colonoscopies with benign polypectomy. Past Anesthesia/Blood Transfusion Reactions: Postoperative Nausea & Vomiting ( PONV) Smoking Status: Former smoker - Past Family History Father Family Medical History: Cancer Additional Family Medical History / Comment(s): Patient reports her father of lung cancer at age 59. Brother(s) Additional Family Medical History / Comment(s): Patient has to penicillin major medical problems. Patient has 2 sisters with no major medical problems. Patient has one daughter with no major medical problems. Mother Additional Family Medical History / Comment(s): Mother is healthy and 81 yrs old. Medications and Allergies Home Medications Medication Instructions Recorded Confirmed Type Budesonide-Formot 160-4.5 Mcg 2 puff INHALATION RT-BID 03/28/14 10/19/18 History [Symbicort 160-4.5 Mcg Inhaler] Albuterol Inhaler [Ventolin Hfa 2 puff INHALATION RT-Q6H PRN 09/05/15 10/19/18 History Inhaler] Omeprazole 20 mg PO BID 09/05/15 10/19/18 History Venlafaxine HCl [Effexor XR] 150 mg PO DAILY 09/05/15 10/19/18 History Albuterol Nebulized [Ventolin 2.5 mg INHALATION RT-QID 08/12/17 10/19/18 History Nebulized] Tiotropium 18 Mcg/Puff [Spiriva] 2 puff INHALATION RT-DAILY 06/27/18 10/19/18 History Ibuprofen [Motrin] 600 mg PO Q6HR PRN 08/04/18 10/19/18 History Palbociclib [Ibrance] 125 mg PO DIRECTED 08/27/18 10/19/18 History amLODIPine [Norvasc] 10 mg PO DAILY 08/27/18 10/19/18 History Calcium Carbonate [Calcium] 1,200 mg PO DAILY 08/28/18 10/19/18 History Cetirizine HCl [Zyrtec] 10 mg PO HS 08/28/18 10/19/18 History Cholecalciferol [Vitamin D3] 400 unit PO DAILY 08/28/18 10/19/18 History Metoclopramide [Reglan] 10 mg PO DAILY PRN 08/28/18 10/19/18 History Hydrocodone/Acetaminophen [[place] 1 each PO Q6HR PRN #28 tab 10/20/18 Rx 5-325] Allergies Allergy/AdvReac Type Severity Reaction Status Date / Time levofloxacin Allergy Rash/Hives Verified 10/19/18 09:30 ondansetron HCl AdvReac Severe Increased Verified 10/19/18 09:30 [From Zofran (as QT interval hydrochloride)] prochlorperazine edisylate AdvReac Severe Increased Verified 10/19/18 09:30 [From Compazine] QT interval prochlorperazine maleate AdvReac Severe Increased Verified 10/19/18 09:30 [From Compazine] QT Interval Physical Examination Physical exam: Patient is awake, alert, and oriented 3 Vital signs stable Good chest excursion with deep inspiration and expiration Abdomen soft nontender Examination of thoracic spine reveals skin is intact with no abrasions, lacerations, or bruises; no erythema, purulence or signs of infection Evidence of a tattoo the posterior cervical spine Pain with palpation along the midline of the mid to lower lower thoracic spine Dorsiflexion, plantarflexion, and extensor hallucis longus positive sustained bilaterally Lower extremity strength 5/5 bilaterally No lower extremity hyperreflexia bilaterally Straight leg test negative bilateral lower extremities No signs or symptoms of DVT; no calf pain No pain with internal and external rotation of the hips bilaterally Neurovascularly intact Results Pertinent studies: CT of the chest taken on 10/19/2018: Evidence of acute to subacute T10 compression fracture deformity at approximately 40% height loss; evidence of some bony change at the superior endplate of T5 with approximately 5%-10% height loss of indeterminate age; T7 wedging at the superior endplate with approximately 10%-15% height loss of indeterminate age; evidence of paravertebral soft tissue swelling/hematoma at the level of fracture; motion artifact of the lung bases no definite pulmonary embolus; bilateral wrist implants and bilateral axillary node dissection; chronic right-sided pleural parenchymal scarring, mid pleural rind, and right hemithorax volume loss redemonstrated - Labs Labs: Abnormal Lab Results - Last 24 Hours (Table) 10/19/18 10/19/18 10/19/18 Range/Units 09:56 09:56 09:56 WBC 13.7 H (3.8-10.6) k/uL Neutrophils # 11.5 H (1.3-7.7) k/uL D-Dimer 1.03 H (<0.60) mg/L FEU Sodium 134 L (137-145) mmol/L Chloride 95 L (98-107) mmol/L Carbon Dioxide 32 H (22-30) mmol/L Creatinine 0.51 L (0.52-1.04) mg/dL Glucose 148 H (74-99) mg/dL H & H 10/19/18 Range/Units 09:56 Hgb 13.2 (11.4-16.0) gm/dL Hct 41.7 (34.0-46.0) % Coagulation 10/19/18 Range/Units 09:56 INR 1.0 (<1.2) Result Diagrams: 10/19/18 09:56 10/19/18 09:56 Assessment and Plan Assessment: Assessment: Acute/subacute T10 compression fracture deformity T5 slight superior endplate compression with approximately 5%-10% height loss of indeterminate age T7 wedging at the superior endplate with approximately 10%-15% height loss of indeterminate age Mid to lower Thoracic back pain Current metastatic breast cancer currently on chemotherapy History of breast cancer with metastatic disease to axillary lymph node, lung, and reproductive system COPD oxygen dependent Chronic steroid use (1) Closed T10 fracture Current Visit: Yes Status: Acute Code(s): S22.079A - UNSP FRACTURE OF T9- T10 VERTEBRA, INIT FOR CLOS FX SNOMED Code(s): 000174421 (2) Thoracic back pain Current Visit: Yes Status: Acute Code(s): M54.6 - PAIN IN THORACIC SPINE SNOMED Code(s): 793866422 (3) COPD (chronic obstructive pulmonary disease) Current Visit: Yes Status: Acute Code(s): J44.9 - CHRONIC OBSTRUCTIVE PULMONARY DISEASE, UNSPECIFIED SNOMED Code(s): 57712992 (4) Oxygen dependent Current Visit: Yes Status: Acute Code(s): Z99.81 - DEPENDENCE ON SUPPLEMENTAL OXYGEN SNOMED Code(s): 202331506785 (5) Metastatic breast cancer Current Visit: No Status: Acute Code(s): C50.919 - MALIGNANT NEOPLASM OF UNSP SITE OF UNSPECIFIED FEMALE BREAST SNOMED Code(s): 608423501 Plan: Plan: 1. After reviewing of imaging, physical examination, history, and reviewing of imaging, we will plan to obtain bracing for the patient's thoracic compression fractures. The compression fracture deformity at T10 appears to be acute/ subacute with approximately 40% she does have some evidence of changes of the superior endplates at T5 and T7 of indeterminate age. She does have pain with palpation along the midline of the thoracic spine at the mid to lower thoracic spine. A prescription has been written and provided the case management for a Spinomed TLSO brace. Once this brace has been delivered and fitted appropriately, patient should wear this brace while sitting upright at greater than 45, during increase activities, during ambulation, working with physical therapy. Brace does not have to be worn while lying in bed or bathing. Patient will remain in hospital today with plans for discharge as early as tomorrow, 10/21/2018. Once her brace is delivered and fitted appropriately today, she may work with physical therapy to increase mobility and ambulation. She is also given a prescription for pain medication at discharge. MAPS has been reviewed today, 10/20/2018, with an Overall Overdose Risk Score of 170. An "Opiod Start Talking" Forn has been signed by the patient and myself in place in the patient's chart. A prescription has been written for [place] 5 mg/325 mg take 1 tab every 6 hours as needed for pain, dispensed #28. Prescription and opioid form has been signed and placed in the patient's chart. 2. Patient will plan to continue with chemotherapy and treatment oncology at the [facility] for her metastatic cancer as prescribed and scheduled. We will not plan to consult oncology here in the hospital. Time with Patient: Greater than 30 (Including physical examination, history, reviewing of imaging, and dictation)
[2018-10-20] MEDS: HYDROcodone/APAP 5-325MG 1 EACH TAB PO PRN ×2 (13:21→22:05)
[2018-10-20] MEDS: SODIUM CHLORIDE 0.9% 1,000 ML IV SCH (16:39)
[2018-10-20] MEDS: PALBOCICLIB 125 MG PO SCH (17:57)
[2018-10-20] MEDS: LORATADINE 10 MG TAB PO SCH (20:42)
[2018-10-21] MEDS: HYDROmorphone 1 MG/ML 1 ML SYRINGE IVP PRN ×5 (03:37→19:09)
[2018-10-21] MEDS: HYDROcodone/APAP 5-325MG 1 EACH TAB PO PRN ×4 (04:23→20:58)
[2018-10-21] MEDS: PANTOPRAZOLE 40 MG TABLET PO SCH (07:44)
[2018-10-21] MEDS: CALCIUM CARBONATE 500 MG CHEWABLE PO SCH (07:44)
[2018-10-21] MEDS: CHOLECALCIFEROL 400 UNIT TAB PO SCH (07:45)
[2018-10-21] MEDS: amLODIPine 10 MG TAB PO SCH (07:45)
[2018-10-21] MEDS: VENLAFAXINE HCL ER 150 MG CAP PO SCH (07:45)
[2018-10-21] MEDS: SYMBICORT 160-4.5 MCG INHALER INHALATION SCH ×2 (08:19→20:22)
[2018-10-21] MEDS: IPRATROPIUM-ALBUTEROL 3 ML NEB INHALATION SCH ×4 (08:19→20:22)
[2018-10-21] MEDS ORDERED: MAGNESIUM HYDROXIDE 2,400 MG/10 ML CUP PO PRN (09:28)
--- NOTE | 2018-10-21 14:07 | P.HPOR ---
History of Present Illness H&P Date: 10/21/18 Chief Complaint: Thoracic back pain Patient was admitted days ago in regards to her severe thoracic back pain. She is known have a number of issues with breast cancer and COPD and was found have a T10 compression fracture. No specific etiology is not completely delineated however the patient did have a bit of a twisting injury which started her pain. She was trying to manage the pain but became incapacitated with it and had presented to the hospital and she was admitted. I was not notified at that the patient was being admitted to my service who we have been able to manage her with our service. I reviewed the case with our physician culinary assistant and I reviewed imaging as well. I reviewed the H&P was dictated and I'm in agreement with this. The patient denies any new shortness of breath but does have chronic shortness breath due to her COPD. She continues have pain at her mid thoracic area. She is not having any numbness tingling or lower extremity. No change in bowel bladder function. No abdominal pain no nausea or vomiting. No recent fevers. No unexpected weight loss. She says that it has been helpful to use the TLSO brace for her. It would arrive yesterday she says it does feel more comfortable when she tries to move around. She still requiring IV pain medications about every 4 hours. She says she has triedthis help it is difficult for her. Review of Systems As per HPI and prior dictated H&P. Denies any nausea or vomiting. Denies any lower extremity numbness Joe. Denies any lower extremity weakness. Denies changes in bowel bladder function. 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 History of Any Multi-Drug Resistant Organisms: None Reported Past Surgical History: Hysterectomy, Orthopedic Surgery Additional Past Surgical History / Comment(s): Cervical cone bx at age 22 yrs, bilateral mastectomies/multiple implants d/t ruptures, D&C, total hysterectomy, VAT/bx, infusaport-since removed, L ACL repair and multiple L knee arthroscopic surgeries, bilateral thumbs trigger finger surgeries, EGDS/colonoscopies with benign polypectomy. Past Anesthesia/Blood Transfusion Reactions: Postoperative Nausea & Vomiting ( PONV) Smoking Status: Former smoker - Past Family History Father Family Medical History: Cancer Additional Family Medical History / Comment(s): Patient reports her father of lung cancer at age 59. Brother(s) Additional Family Medical History / Comment(s): Patient has to penicillin major medical problems. Patient has 2 sisters with no major medical problems. Patient has one daughter with no major medical problems. Mother Additional Family Medical History / Comment(s): Mother is healthy and 81 yrs old. Medications and Allergies Home Medications Medication Instructions Recorded Confirmed Type Budesonide-Formot 160-4.5 Mcg 2 puff INHALATION RT-BID 03/28/14 10/19/18 History [Symbicort 160-4.5 Mcg Inhaler] Albuterol Inhaler [Ventolin Hfa 2 puff INHALATION RT-Q6H PRN 09/05/15 10/19/18 History Inhaler] Omeprazole 20 mg PO BID 09/05/15 10/19/18 History Venlafaxine HCl [Effexor XR] 150 mg PO DAILY 09/05/15 10/19/18 History Albuterol Nebulized [Ventolin 2.5 mg INHALATION RT-QID 08/12/17 10/19/18 History Nebulized] Tiotropium 18 Mcg/Puff [Spiriva] 2 puff INHALATION RT-DAILY 06/27/18 10/19/18 History Ibuprofen [Motrin] 600 mg PO Q6HR PRN 08/04/18 10/19/18 History Palbociclib [Ibrance] 125 mg PO DIRECTED 08/27/18 10/19/18 History amLODIPine [Norvasc] 10 mg PO DAILY 08/27/18 10/19/18 History Calcium Carbonate [Calcium] 1,200 mg PO DAILY 08/28/18 10/19/18 History Cetirizine HCl [Zyrtec] 10 mg PO HS 08/28/18 10/19/18 History Cholecalciferol [Vitamin D3] 400 unit PO DAILY 08/28/18 10/19/18 History Metoclopramide [Reglan] 10 mg PO DAILY PRN 08/28/18 10/19/18 History Hydrocodone/Acetaminophen [[place] 1 each PO Q6HR PRN #28 tab 10/20/18 Rx 5-325] Allergies Allergy/AdvReac Type Severity Reaction Status Date / Time levofloxacin Allergy Rash/Hives Verified 10/19/18 09:30 ondansetron HCl AdvReac Severe Increased Verified 10/19/18 09:30 [From Zofran (as QT interval hydrochloride)] prochlorperazine edisylate AdvReac Severe Increased Verified 10/19/18 09:30 [From Compazine] QT interval prochlorperazine maleate AdvReac Severe Increased Verified 10/19/18 09:30 [From Compazine] QT Interval Physical Examination Osteopathic Statement: *. No significant issues noted on an osteopathic structural exam other than those noted in the History and Physical/Consult. - L Spine: dermatomal strength & reflexes bilateral Strength: hip flexion: 5/5 (At her lower extremity she has sustained bilateral 5 muscle strength in bilateral lower extremity. Her back is tenderness around the midline and paraspinals at her thoracic lumbar junction) Results - Labs Labs: H & H 10/19/18 Range/Units 09:56 Hgb 13.2 (11.4-16.0) gm/dL Hct 41.7 (34.0-46.0) % Coagulation 10/19/18 Range/Units 09:56 INR 1.0 (<1.2) Result Diagrams: 10/19/18 09:56 10/19/18 09:56 - Diagnostic results CT Scan - lumbar: image reviewed (There is a abdomen pelvis CT scan which is reviewed in terms of her spine which shows the fractures that I reviewed.) Assessment and Plan Assessment: Thoracic back pain Acute T10 compression fracture of uncertain etiology Intractable back pain History of breast cancer COPD Plan: Thoracic back pain Acute T10 compression fracture of uncertain etiology Intractable back pain History of breast cancer COPD Humerus the patient's compression fracture we plan to continue conservative management with bracing. She has received a spinal material LSO and this seems to be helping to some degree. She is still requiring IV pain medications but feels that she will be able to taper to oral medications by tomorrow. Hopefully she will be able to convert to oral medications and be able be discharged home tomorrow with bracing and continued conservative care. She would be a candidate for surgical intervention possibly with biopsy and kyphoplasty if her symptoms persist. We can follow that up as outpatient closely after she is discharged. She does have history of COPD and breast cancer. Medicine has not been on the case but if she has more prolonged hospitalization then we will have them involved in the case as well. I discussed this with her and she feels that it is not necessary for medicine see her at this point as well. We will continue to follow her closely. Hopefully she'll be able to be discharged home tomorrow.
[2018-10-21] MEDS: PALBOCICLIB 125 MG PO SCH (16:08)
[2018-10-21] MEDS: LORATADINE 10 MG TAB PO SCH (20:58)
[2018-10-22] MEDS: HYDROcodone/APAP 5-325MG 1 EACH TAB PO PRN ×3 (02:32→12:54)
[2018-10-22] MEDS: IPRATROPIUM-ALBUTEROL 3 ML NEB INHALATION SCH ×2 (07:28→12:17)
[2018-10-22] MEDS: SYMBICORT 160-4.5 MCG INHALER INHALATION SCH (07:34)
[2018-10-22 09:04] VITALS: BP 143/91; RESP 18; TEMP 97.9
[2018-10-22] MEDS: CHOLECALCIFEROL 400 UNIT TAB PO SCH (10:02)
[2018-10-22] MEDS: PANTOPRAZOLE 40 MG TABLET PO SCH (10:02)
[2018-10-22] MEDS: VENLAFAXINE HCL ER 150 MG CAP PO SCH (10:02)
[2018-10-22] MEDS: amLODIPine 10 MG TAB PO SCH (10:03)
[2018-10-22] MEDS: CALCIUM CARBONATE 500 MG CHEWABLE PO SCH (10:03)
[2018-10-22] MEDS: IBUPROFEN 600 MG TAB PO PRN (11:43)
[2018-10-22 12:31] VITALS: PULSE 95
== END 2018-10-22 14:45 | disposition home or self-care (01) | DRG 543 ==
LOC: EC 09:06 → 6PED 13:39 → 4MS4W 14:02 → 4SSUR 14:58 → OBSVTOIN 10-22 08:23
PROVIDERS: ADMIT Orthopaedic Surgery Orthopaedic Surgery of the Spine; ATTEND Orthopaedic Surgery Orthopaedic Surgery of the Spine
PROC: 2W35X3Z Immobilization of Back using Brace (ICD-10-PCS; principal; 2018-10-22)
DX: M48.54XA Collapsed vertebra, not elsewhere classified, thoracic region, initial encounter for fracture (principal); C78.01 Secondary malignant neoplasm of right lung; C78.2 Secondary malignant neoplasm of pleura; C77.3 Secondary and unspecified malignant neoplasm of axilla and upper limb lymph nodes; Z85.3 Personal history of malignant neoplasm of breast; Z90.13 Acquired absence of bilateral breasts and nipples; Z85.43 Personal history of malignant neoplasm of ovary; Z85.42 Personal history of malignant neoplasm of other parts of uterus; Z90.710 Acquired absence of both cervix and uterus; Z90.79 Acquired absence of other genital organ(s); Z90.722 Acquired absence of ovaries, bilateral; Z85.89 Personal history of malignant neoplasm of other organs and systems; I89.0 Lymphedema, not elsewhere classified; J44.9 Chronic obstructive pulmonary disease, unspecified; I10 Essential (primary) hypertension; K21.9 Gastro-esophageal reflux disease without esophagitis; M41.80 Other forms of scoliosis, site unspecified; X50.1XXA Overexertion from prolonged static or awkward postures, initial encounter; Z79.51 Long term (current) use of inhaled steroids; Z79.52 Long term (current) use of systemic steroids; Z79.899 Other long term (current) drug therapy; Z80.1 Family history of malignant neoplasm of trachea, bronchus and lung; Z87.891 Personal history of nicotine dependence; Z92.21 Personal history of antineoplastic chemotherapy; Z99.81 Dependence on supplemental oxygen; Z92.3 Personal history of irradiation; G90.2 Horner's syndrome; T45.1X5S Adverse effect of antineoplastic and immunosuppressive drugs, sequela; Z88.1 Allergy status to other antibiotic agents; Z88.8 Allergy status to other drugs, medicaments and biological substances; Z86.010 Personal history of colon polyps; Z87.01 Personal history of pneumonia (recurrent)
CPT/HCPCS: 36415; 71046; 71275; 72072; 80053; 85025; 85379; 85610; 85730; 93005; 94640; 96374; 96376; 99285

== ENCOUNTER 2021-06-30 12:03 | Inpatient (IN) | payer MEDICARE ==
[2021-06-30] MEDS ORDERED: ALBUTEROL NEBULIZED 2.5 MG/3 ML INHALATION STA (12:14)
[2021-06-30] MEDS ORDERED: methylPREDNISolone SOD SUCCI 125 MG/2 ML VIAL IV STA (12:14)
[2021-06-30] MEDS ORDERED: IPRATROPIUM 0.5 MG/2.5 ML NEBU INHALATION STA (12:14)
[2021-06-30 13:22] LABS: Basophils % (A) 1 %; Eosinophils % (A) 0 %; HCT 37.1 % (34.0-46.0); HGB 12.2 gm/dL (11.4-16.0); Lymphocytes # (A) 0.5 k/uL (1.0-4.8); Lymphocytes % (A) 11 %; MCH 33.2 pg (25.0-35.0); MCHC 32.8 g/dL (31.0-37.0); MCV 101.2 fL (80.0-100.0); Macrocytosis Slight; Mean Platelet Volume 6.8; Monocytes # (A) 0.2 k/uL (0-1.0); Monocytes % (A) 4 %; Neutrophils # (A) 3.5 k/uL (1.3-7.7); Neutrophils % (A) 82 %; Platelet Count 310 k/uL (150-450); RBC 3.66 m/uL (3.80-5.40); RDW 14.6 % (11.5-15.5); WBC 4.3 k/uL (3.8-10.6)
--- NOTE | 2021-06-30 13:31 | XR ---
EXAMINATION TYPE: XR chest 2V DATE OF EXAM: 06/30/2021 COMPARISON: 10/19/2018 TECHNIQUE: PA and lateral views submitted. HISTORY: Difficulty breathing FINDINGS: Postsurgical change involving the vertebral column. There is hyperinflation. There are subsegmental i nfiltrate right perihilar region. No pneumothorax. Degenerative changes of the spine. Underlying COPD suspected. Arthropathy of the shoulders. IMPRESSION: 1. COPD with right perihilar chronic atelectasis or scarring suspected given stability over time.
--- NOTE | 2021-06-30 13:33 | ED ---
General Adult HPI - General Chief complaint: Shortness of Breath Stated complaint: SOB Time Seen by Provider: 06/30/21 12:07 Source: patient, EMS, RN notes reviewed, old records reviewed Mode of arrival: EMS Limitations: no limitations - History of Present Illness Initial comments: 60-year-old female presenting for evaluation of increased cough and dyspnea. She was seen by her primary care yesterday and given a steroid infusion. She has not improved. She denies fever. She is vaccinated against coronavirus. Her cough is mostly nonproductive. No central chest pain. No lower extremity pain or swelling. - Related Data Home Medications Medication Instructions Recorded Confirmed Omeprazole 20 mg PO DAILY 09/05/15 06/30/21 Venlafaxine HCl [Effexor XR] 150 mg PO DAILY 09/05/15 06/30/21 amLODIPine [Norvasc] 10 mg PO DAILY 08/27/18 06/30/21 ARIPiprazole [Abilify] 2 mg PO HS 06/30/21 06/30/21 Fluticasone/Vilanterol [Breo 1 puff INHALATION RT-DAILY 06/30/21 06/30/21 Ellipta 200-25 Mcg Inhaler] HYDROcodone/APAP 10-325MG [[place] 1 tab PO Q6HR PRN 06/30/21 06/30/21 10-325] Ipratropium-Albuterol Nebulize 3 ml INHALATION RT-Q4H PRN 06/30/21 06/30/21 [Duoneb 0.5 mg-3 mg/3 ml Soln] LORazepam [Ativan] 1 mg PO TID PRN 06/30/21 06/30/21 Palbociclib [Ibrance] 75 mg PO DIRECTED 06/30/21 06/30/21 Allergies Allergy/AdvReac Type Severity Reaction Status Date / Time levofloxacin Allergy Rash/Hives Verified 06/30/21 14:08 ondansetron HCl AdvReac Severe Increased Verified 06/30/21 14:08 [From Zofran (as QT interval hydrochloride)] prochlorperazine edisylate AdvReac Severe Increased Verified 06/30/21 14:08 [From Compazine] QT interval prochlorperazine maleate AdvReac Severe Increased Verified 06/30/21 14:08 [From Compazine] QT Interval Review of Systems ROS Statement: Those systems with pertinent positive or pertinent negative responses have been documented in the HPI. ROS Other: All systems not noted in ROS Statement are negative. 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 History of Any Multi-Drug Resistant Organisms: None Reported Past Surgical History: Hysterectomy, Orthopedic Surgery Additional Past Surgical History / Comment(s): Cervical cone bx at age 22 yrs, bilateral mastectomies/multiple implants d/t ruptures, D&C, total hysterectomy, VAT/bx, infusaport-since removed, L ACL repair and multiple L knee arthroscopic surgeries, bilateral thumbs trigger finger surgeries, EGDS/colonoscopies with benign polypectomy. Past Anesthesia/Blood Transfusion Reactions: Postoperative Nausea & Vomiting (PONV) Past Psychological History: Anxiety, Depression Past Alcohol Use History: None Reported Past Drug Use History: None Reported - Past Family History Father Family Medical History: Cancer Additional Family Medical History / Comment(s): Patient reports her father of lung cancer at age 59. Brother(s) Additional Family Medical History / Comment(s): Patient has to penicillin major medical problems. Patient has 2 sisters with no major medical problems. Patient has one daughter with no major medical problems. Mother Additional Family Medical History / Comment(s): Mother is healthy and 81 yrs old. General Exam Limitations: no limitations General appearance: alert, in no apparent distress Head exam: Present: atraumatic, normocephalic Eye exam: Present: normal appearance, PERRL ENT exam: Present: normal exam Neck exam: Present: normal inspection. Absent: tenderness, meningismus Respiratory exam: Present: respiratory distress, wheezes, decreased breath sounds, prolonged expiratory Cardiovascular Exam: Present: regular rate, normal rhythm GI/Abdominal exam: Present: soft. Absent: distended, tenderness, guarding Extremities exam: Present: normal inspection, normal capillary refill Neurological exam: Present: alert, oriented X3, CN II-XII intact. Absent: motor sensory deficit Psychiatric exam: Present: normal affect, normal mood Skin exam: Present: warm, dry, intact Course Vital Signs 06/30/21 06/30/21 06/30/21 12:06 12:17 12:31 Temperature Pulse Rate 106 H 102 H Respiratory 24 20 Rate Blood Pressure 122/83 O2 Sat by Pulse 83 L 92 L Oximetry 06/30/21 06/30/21 13:31 14:13 Temperature 99.2 F Pulse Rate 114 H 114 H Respiratory 22 22 Rate Blood Pressure 104/78 O2 Sat by Pulse 90 L Oximetry EKG Findings - EKG Comments: EKG Findings:: Sinus tachycardia, left axis, rate of 107, WA interval 134, QRS duration 78, QTC 467 Medical Decision Making - Medical Decision Making 60-year-old female presenting with increased cough and dyspnea history of COPD on supplemental oxygen. Patient has had increased oxygenation requirements. She has been treated as an outpatient without improvement. Patient given albuterol, Atrovent, segmental the emergency department with mild improvement in respiratory status. She will require inpatient treatment for COPD exacerbation. Case discussed with Dr. Azevedo who will admit. - Lab Data Result diagrams: 06/30/21 13:02 06/30/21 13:02 Lab Results 06/30/21 06/30/21 06/30/21 Range/Units 13:02 13:02 13:02 WBC 4.3 (3.8-10.6) k/uL RBC 3.66 L (3.80-5.40) m/uL Hgb 12.2 (11.4-16.0) gm/dL Hct 37.1 (34.0-46.0) % MCV 101.2 H (80.0-100.0) fL MCH 33.2 (25.0-35.0) pg MCHC 32.8 (31.0-37.0) g/dL RDW 14.6 (11.5-15.5) % Plt Count 310 (150-450) k/uL MPV 6.8 Neutrophils % 82 % Lymphocytes % 11 % Monocytes % 4 % Eosinophils % 0 % Basophils % 1 % Neutrophils # 3.5 (1.3-7.7) k/uL Lymphocytes # 0.5 L (1.0-4.8) k/uL Monocytes # 0.2 (0-1.0) k/uL Eosinophils # 0.0 (0-0.7) k/uL Basophils # 0.0 (0-0.2) k/uL Macrocytosis Slight PT 10.1 (9.0-12.0) sec INR 0.9 (<1.2) APTT 25.7 (22.0-30.0) sec Sodium 134 L (137-145) mmol/L Potassium 4.3 (3.5-5.1) mmol/L Chloride 93 L (98-107) mmol/L Carbon Dioxide 32 H (22-30) mmol/L Anion Gap 9 mmol/L BUN 9 (7-17) mg/dL Creatinine 0.49 L (0.52-1.04) mg/dL Est GFR (CKD-EPI)AfAm >90 (>60 ml/min/1.73 sqM) Est GFR (CKD-EPI)NonAf >90 (>60 ml/min/1.73 sqM) Glucose 145 H (74-99) mg/dL Plasma Lactic Acid [place] (0.7-2.0) mmol/L Calcium 9.2 (8.4-10.2) mg/dL Magnesium 1.8 (1.6-2.3) mg/dL Total Bilirubin 0.5 (0.2-1.3) mg/dL AST 27 (14-36) U/L ALT 16 (4-34) U/L Alkaline Phosphatase 83 (38-126) U/L Total Protein 7.1 (6.3-8.2) g/dL Albumin 4.2 (3.5-5.0) g/dL 06/30/21 Range/Units 13:02 WBC (3.8-10.6) k/uL RBC (3.80-5.40) m/uL Hgb (11.4-16.0) gm/dL Hct (34.0-46.0) % MCV (80.0-100.0) fL MCH (25.0-35.0) pg MCHC (31.0-37.0) g/dL RDW (11.5-15.5) % Plt Count (150-450) k/uL MPV Neutrophils % % Lymphocytes % % Monocytes % % Eosinophils % % Basophils % % Neutrophils # (1.3-7.7) k/uL Lymphocytes # (1.0-4.8) k/uL Monocytes # (0-1.0) k/uL Eosinophils # (0-0.7) k/uL Basophils # (0-0.2) k/uL Macrocytosis PT (9.0-12.0) sec INR (<1.2) APTT (22.0-30.0) sec Sodium (137-145) mmol/L Potassium (3.5-5.1) mmol/L Chloride (98-107) mmol/L Carbon Dioxide (22-30) mmol/L Anion Gap mmol/L BUN (7-17) mg/dL Creatinine (0.52-1.04) mg/dL Est GFR (CKD-EPI)AfAm (>60 ml/min/1.73 sqM) Est GFR (CKD-EPI)NonAf (>60 ml/min/1.73 sqM) Glucose (74-99) mg/dL Plasma Lactic Acid [place] 0.9 (0.7-2.0) mmol/L Calcium (8.4-10.2) mg/dL Magnesium (1.6-2.3) mg/dL Total Bilirubin (0.2-1.3) mg/dL AST (14-36) U/L ALT (4-34) U/L Alkaline Phosphatase (38-126) U/L Total Protein (6.3-8.2) g/dL Albumin (3.5-5.0) g/dL Critical Care Time Critical Care Time: Yes Total Critical Care Time: 35 Disposition Clinical Impression: Acute exacerbation of COPD with asthma, Acute exacerbation of chronic obstructive pulmonary disease, Hypoxemia Disposition: ADMITTED IP TO THIS [facility] Condition: Stable Is patient prescribed a controlled substance at d/c from ED?: No Referrals: Sanjay Alberts DO [Primary Care Provider] - 1-2 days Decision to Admit Reason: Admit from EC Decision Date: 06/30/21 Decision Time: 14:25
[2021-06-30 13:37] LABS: ALT 16 U/L (4-34); AST 27 U/L (14-36); African American GFR (CKD) >90 (>60 ml/min/1.73 sqM); Albumin 4.2 g/dL (3.5-5.0); Alkaline Phosphatase 83 U/L (38-126); Anion Gap 9 mmol/L; Blood Urea Nitrogen 9 mg/dL (7-17); Calcium 9.2 mg/dL (8.4-10.2); Carbon Dioxide 32 mmol/L (22-30); Chloride 93 mmol/L (98-107); Glucose 145 mg/dL (74-99); INR 0.9 (<1.2); Magnesium 1.8 mg/dL (1.6-2.3); Non-African American GFR(CKD) >90 (>60 ml/min/1.73 sqM); Partial Thromboplastin Time 25.7 sec (22.0-30.0); Potassium 4.3 mmol/L (3.5-5.1); Prothrombin Time 10.1 sec (9.0-12.0); Sodium 134 mmol/L (137-145); Total Bilirubin 0.5 mg/dL (0.2-1.3); Total Protein 7.1 g/dL (6.3-8.2)
[2021-06-30] MEDS ORDERED: SODIUM CHLORIDE 0.9% 500 ML 500 ML IV ONE (14:22)
[2021-06-30] MEDS ORDERED: NALOXONE 0.4 MG/ML 1 ML VIAL IV PRN (14:22)
[2021-06-30] MEDS ORDERED: ACETAMINOPHEN TAB 325 MG TAB PO PRN (14:22)
[2021-06-30] MEDS: IPRATROPIUM-ALBUTEROL 3 ML NEB INHALATION SCH ×3 (15:27→23:59)
[2021-06-30] MEDS: methylPREDNISolone SOD SUCCI 125 MG/2 ML VIAL IV SCH ×2 (18:24→23:58)
[2021-06-30] MEDS: LORazepam 1 MG TAB PO PRN (18:43)
[2021-06-30] MEDS: SODIUM CHLORIDE 0.9% 1,000 ML IV SCH (18:44)
[2021-06-30] MEDS: ARIPiprazole 2 MG TAB PO SCH (22:21)
[2021-06-30] MEDS ORDERED: HYDROcodone/APAP 10-325MG 1 EACH TAB PO PRN (22:39)
[2021-06-30] MEDS ORDERED: IPRATROPIUM-ALBUTEROL 3 ML NEB INHALATION PRN (22:39)
[2021-06-30] MEDS: AZITHROMYCIN 250 MG TAB PO SCH (23:57)
[2021-07-01] MEDS: IPRATROPIUM-ALBUTEROL 3 ML NEB INHALATION SCH ×6 (05:16→23:58)
[2021-07-01] MEDS: SODIUM CHLORIDE 0.9% 1,000 ML IV SCH (05:45)
[2021-07-01] MEDS ORDERED: SYMBICORT 160-4.5 MCG INHALER INHALATION SCH (08:00)
--- NOTE | 2021-07-01 08:09 | P.CNPUL ---
History of Present Illness Consult date: 07/01/21 Reason for consult: dyspnea, cough, COPD Chief complaint: Dyspnea, cough, wheezing History of present illness: This is a 57-year-old white female patient with past medical history of severe COPD, stage IV metastatic breast cancer most recently patient was on Ibrance and Foslodex ( last treatment was on June 26, 2021) patient follows at the [facility] for her breast cancer care, with previous radiation t herapy, hypertension, hyperlipidemia, depression, anxiety. Patient is status post bilateral mastectomy and oophorectomy at the [facility]. Patient presented to the emergency department on 06/30/2021 for evaluation of increased cough, and dyspnea and this has been going on since Tuesday. She went to see Dr. Azevedo in the office and was given a steroid injection, she has not improved, she denies any fever or chills, she has been vaccinated against coronavirus. Her cough is mostly nonproductive, no complaints of central chest pain, swelling or pain. Her chest x-ray shows COPD with right perihilar chronic atelectasis or scarring, based on comparison to previous images. COVID-19 PCR was negative, lab work was reviewed, white blood cell count was normal at 4.3, hemoglobin was 12.12, correlation profile was within normal limits, sodium is 134, potassium is 4.3, chloride is 93, CO2 32, BUN is 9, creatinine 0.49, LFTs were within normal limits. Patient was started on empiric antibiotics, IV steroids and bronchodilators, and we were asked to see the patient consultation. This morning she seen resting on a gurney in the emergency department, she is awaiting a bed on the medical surgical unit, vital signs are stable, she is in sinus mechanism with a rate of 107, pulse ox is 91% on 4 L, patient usually wears 2 L on a regular basis. Review of Systems All systems: negative Constitutional: Denies chills, Denies fever Eyes: denies blurred vision, denies pain Ears, nose, mouth and throat: Denies headache, Denies sore throat Cardiovascular: Denies chest pain, Denies shortness of breath Respiratory: Reports cough, Reports dyspnea Gastrointestinal: Denies abdominal pain, Denies diarrhea, Denies nausea, Denies vomiting Genitourinary: Denies dysuria, Denies hematuria Musculoskeletal: Denies myalgias Integumentary: Denies pruritus, Denies rash Neurological: Denies numbness, Denies weakness Psychiatric: Denies anxiety, Denies depression Endocrine: Denies fatigue, Denies weight change Past Medical History Past Medical History: Asthma, Cancer, COPD, GERD/Reflux, Hypertension, Pneumonia Additional Past Medical History / Comment(s): 2000 R breast cancer with bilatera l mastectomies/chemo and radiation, 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 History of Any Multi-Drug Resistant Organisms: None Reported Past Surgical History: Hysterectomy, Orthopedic Surgery Additional Past Surgical History / Comment(s): Cervical cone bx at age 22 yrs, bilateral mastectomies/multiple implants d/t ruptures, D&C, total hysterectomy, VAT/bx, infusaport-since removed, L ACL repair and multiple L knee arthroscopic surgeries, bilateral thumbs trigger finger surgeries, EGDS/colonoscopies with benign polypectomy. Past Anesthesia/Blood Transfusion Reactions: Postoperative Nausea & Vomiting (PONV) Past Psychological History: Anxiety, Depression Past Alcohol Use History: None Reported Past Drug Use History: None Reported - Past Family History Father Family Medical History: Cancer Additional Family Medical History / Comment(s): Patient reports her father of lung cancer at age 59. Brother(s) Additional Family Medical History / Comment(s): Patient has to penicillin major medical problems. Patient has 2 sisters with no major medical problems. Patient has one daughter with no major medical problems. Mother Additional Family Medical History / Comment(s): Mother is healthy and 81 yrs old. Medications and Allergies Home Medications Medication Instructions Recorded Confirmed Type Omeprazole 20 mg PO DAILY 09/05/15 06/30/21 History Venlafaxine HCl [Effexor XR] 150 mg PO DAILY 09/05/15 06/30/21 History amLODIPine [Norvasc] 10 mg PO DAILY 08/27/18 06/30/21 History ARIPiprazole [Abilify] 2 mg PO HS 06/30/21 06/30/21 History Fluticasone/Vilanterol [Breo 1 puff INHALATION RT-DAILY 06/30/21 06/30/21 History Ellipta 200-25 Mcg Inhaler] HYDROcodone/APAP 10-325MG [[place] 1 tab PO Q6HR PRN 06/30/21 06/30/21 History 10-325] Ipratropium-Albuterol Nebulize 3 ml INHALATION RT-Q4H PRN 06/30/21 06/30/21 History [Duoneb 0.5 mg-3 mg/3 ml Soln] LORazepam [Ativan] 1 mg PO TID PRN 06/30/21 06/30/21 History Palbociclib [Ibrance] 75 mg PO DIRECTED 06/30/21 06/30/21 History Allergies Allergy/AdvReac Type Severity Reaction Status Date / Time levofloxacin Allergy Rash/Hives Verified 06/30/21 14:08 ondansetron HCl AdvReac Severe Increased Verified 06/30/21 14:08 [From Zofran (as QT interval hydrochloride)] prochlorperazine edisylate AdvReac Severe Increased Verified 06/30/21 14:08 [From Compazine] QT interval prochlorperazine maleate AdvReac Severe Increased Verified 06/30/21 14:08 [From Compazine] QT Interval Physical Exam Vitals: Vital Signs Temp Pulse Resp BP Pulse Ox 07/01/21 07:26 103 H 07/01/21 07:14 101 H 07/01/21 05:48 96 18 118/84 91 L 07/01/21 05:30 18 07/01/21 03:00 18 07/01/21 00:10 105 H 18 116/78 93 L 06/30/21 22:04 104 H 06/30/21 18:15 108 H 18 133/88 91 L 06/30/21 15:36 114 H 18 06/30/21 15:29 111 H 18 06/30/21 14:13 99.2 F 114 H 22 104/78 90 L 06/30/21 13:31 114 H 22 06/30/21 12:31 102 H 20 06/30/21 12:17 92 L 06/30/21 12:06 106 H 24 122/83 83 L GENERAL EXAM: Alert, a pleasant, 60-year-old white female, resting on the gurney in the emergency department on 4 L of oxygen with a pulse ox of 91% comfortable in no apparent distress. HEAD: Normocephalic/atraumatic. EYES: Normal reaction of pupils, equal size. Conjunctiva pink, sclera white. NOSE: Clear with pink turbinates. THROAT: No erythema or exudates. NECK: No masses, no JVD, no thyroid enlargement, no adenopathy. CHEST: No chest wall deformity. Symmetrical expansion. LUNGS: diminished breath sounds bilaterally,no crackles, mild wheeze,no rhonchi or dullness. CVS: Regular rate and rhythm, normal S1 and S2, no gallops, no murmurs, no rubs ABDOMEN: Soft, nontender. No hepatosplenomegaly, normal bowel sounds, no guarding or rigidity. EXTREMITIES: No clubbing, no edema, no cyanosis, 2+ pulses and upper and lower extremities. MUSCULOSKELETAL: Muscle strength and tone normal. SPINE: No scoliosis or deformity SKIN: No rashes CENTRAL NERVOUS SYSTEM: Alert and oriented -3. No focal deficits, tone is normal in all 4 extremities. PSYCHIATRIC: Alert and oriented -3. Appropriate affect. Intact judgment and insight. Results - Laboratory Findings CBC and BMP: 06/30/21 13:02 06/30/21 13:02 PT/INR, D-dimer PT 10.1 sec (9.0-12.0) 06/30/21 13:02 INR 0.9 (<1.2) 06/30/21 13:02 Abnormal lab findings: Abnormal Labs 06/30/21 06/30/21 13:02 13:02 RBC 3.66 L MCV 101.2 H Lymphocytes # 0.5 L Sodium 134 L Chloride 93 L Carbon Dioxide 32 H Creatinine 0.49 L Glucose 145 H - Diagnostic Findings Chest x-ray: report reviewed, image reviewed Assessment and Plan Plan: assessment: #1. Acute exacerbation of chronic obstructive pulmonary disease, no evidence of acute pulmonary process on the chest x-ray, COVID 19 PCR was negative, patient is status post completed COVID-19 vaccination. #2. Stage IV metastatic breast cancer, status post bilateral mastectomy and oophorectomy, patient follows at the [facility] for her cancer care, she is currently on Ibrance and Foslodex, last treatment was 06/26/2021 #3. History of COPD, on home oxygen, usually wears 2 L on a regular basis, baseline FEV1 is 37% of predicted #4. History of chronic tobacco dependence #5. Hypertension #6. Depression #7. History of Alysha syndrome Plan: Continue with oral antibiotics Continue with IV steroids and nebulized bronchodilators Chest x-ray has been reviewed showing no clear evidence of acute pulmonary process COVID-19 PCR was negative Continue to follow patient's clinical course and make further recommendations I performed a history & physical examination of the patient and discussed their management with my nurse practitioner, Mere Ruth. I reviewed the nurse practitioner's note and agree with the documented findings and plan of care. Lung sounds are positive for diffuse wheezes throughout the lung [place]. The findings and the impression was discussed with the patient. I attest to the documentation by the nurse practitioner. #4. Time with Patient: Greater than 30
[2021-07-01] MEDS: methylPREDNISolone SOD SUCCI 125 MG/2 ML VIAL IV SCH ×3 (08:50→23:41)
[2021-07-01] MEDS: amLODIPine 10 MG TAB PO SCH (08:50)
[2021-07-01] MEDS: AZITHROMYCIN 250 MG TAB PO SCH (08:51)
[2021-07-01] MEDS: ARIPiprazole 2 MG TAB PO SCH ×2 (08:51→20:10)
[2021-07-01] MEDS: PANTOPRAZOLE 40 MG TABLET PO SCH (08:51)
[2021-07-01] MEDS: BUDESONIDE 1 MG/2 ML NEBU INHALATION SCH ×2 (08:52→21:12)
[2021-07-01] MEDS: VENLAFAXINE HCL ER 150 MG CAP PO SCH (08:52)
[2021-07-01] MEDS ORDERED: PALBOCICLIB 75 MG PO SCH (09:00)
--- NOTE | 2021-07-01 12:05 | P.HPIM ---
History of Present Illness H&P Date: 06/30/21 Chief Complaint: Acute respiratory failure, COPD exacerbation, severe bronch itis, metastasis HISTORY OF PRESENT ILLNESS 60-year-old female one of Dr. 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 Also patient had abdominal uterine and fallopian metastasis from breast cancer with total hysterectomy. Patient had respiratory failure on and off in the past has been on home O2 she was hospitalized at [facility] over a month ago for COPD excessive patient was treated and done well. Patient developed to have much worsening shortness of breath cough wheezes try outpatient management not successful ended up seen Dr. Alberts and had apparently steroid injection along with antibiotics which did not help ended up in the emergency department at [facility] in the afternoon on 06/30/2021. At the time was seen she was quite hypoxic was having inspiratory expiratory wheezes and significant worsening symptoms. Her COVID-19 by PCR was negative chest x-ray showed COPD with right perihilar and chronic atelectasis with scar tissue. She was diagnosed with COPD excessive patient with severe bronchitis started on IV antibiotic along with IV steroids and bronchodilator pulse ox remained to be low require 4 L of O2 to keep pulse ox above 90 percentile. She was hospitalized with above problem. REVIEW OF SYSTEMS Constitutional: No fever, no chills, no night sweats. No weight change. No weakness, fatigue or lethargy. No daytime sleepiness. EENT: No headache. No blurred vision or double vision, no loss of vision. No loss of Hearing, no ringing in the ears, no dizziness. Significant congestion with no epistaxis no sore throat. Lungs: Positive shortness of breath cough wheezes. Cardiovascular: No chest pain, no lower extremity edema. No palpitations. No paroxysmal nocturnal dyspnea. No orthopnea. No lightheadedness or dizziness. No syncopal episodes. Abdominal: No abdominal pain. No nausea, vomiting. No diarrhea. No constipation. No bloody or tarry stools.. No loss of appetite. Genitourinary: No dysuria, increased frequency, urgency. No urinary retention. Musculoskeletal: No myalgias. No muscle weakness, no gait dysfunction, no fr equent falls. No back pain. No neck pain. Integumentary: No wounds, no lesions. No rash or pruritus. No unusual bruising. No change in hair or nails. Neurologic: No aphasia. No facial droop. No change in mentation. No head injury. No headache. No paralysis. No paresthesia. Psychiatric: No depression. No anxiety. No mood swings. Endocrine: No abnormal blood sugars. No weight change. No excessive sweating or thirst. No cold intolerance. SOCIAL HISTORY She quit smoking 5 years ago smoked pack a day for 30 years, no alcohol abuse or drug use. Patient is oxygen at home with updraft no CPAP. FAMILY HISTORY She is single but has one child who is living and well, 4 siblings with no major medical problem, her mother is living at age 84 well and healthy, father dying at age 59 from lung cancer. PHYSICAL EXAMINATION Gen: This is a 60-year-old laying in bed look in mild respiratory distress. HEENT: Head is atraumatic, normocephalic. Pupils equal, round. Sclerae is anicteric. NECK: Supple. No JVD. No lymphadenopathy. No thyromegaly. LUNGS: Decreased breath some bilateral rhonchi positive mild crackles bilaterally especially in the bases positive inspiratory expiratory wheezes. HEART: Regular rate and rhythm. No murmur. ABDOMEN: Soft. Bowel sounds are present. No masses. No tenderness. EXTREMITIES: No pedal edema. No calf tenderness. NEUROLOGICAL: Patient is awake, alert and oriented x3. Cranial nerves 2 through 12 are grossly intact. ASSESSMENT AND PLAN 1. Acute respiratory failure: Combination of COPD excessive patient along with severe bronchitis. Continue O2, continue steroid and bronchodilator for now. We'll consult pulmonary chest x-ray will be repeated again in 48 hours. 2. COPD excessive patient: With worsening symptoms, continue patient on IV steroid, continue DuoNeb along with Pulmicort. 3. Severe purulent tracheal bronchitis: Continue patient on antibiotic she received 1 dose of Rocephin we will add azithromycin to 50 mg a day at this point. 4. Advance breast cancer with lung metastasis: Still seen oncology still on immune oh therapy. 5. hypertension: Patient has been on amlodipine 10 mg a day continue medication. 6. Chronic depression: Continue patient on Abilify total of 2 mg twice a day along with lorazepam and Effexor. 7. Hyperglycemia: Accu-Chek with sliding scales coverage and be done. 8. GI prophylaxis: Patient will be on pantoprazole 40 mg daily.. 9. DVT prophylaxis: Patient will be on heparin subcutaneous.. 10. CODE STATUS: Full code. 11. COVID-19 testing were negative. Patient will be admitted to the hospital for a minimum of 2 night stay. 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 History of Any Multi-Drug Resistant Organisms: None Reported Past Surgical History: Hysterectomy, Orthopedic Surgery Additional Past Surgical History / Comment(s): Cervical cone bx at age 22 yrs, bilateral mastectomies/multiple implants d/t ruptures, D&C, total hysterectomy, VAT/bx, infusaport-since removed, L ACL repair and multiple L knee arthroscopic surgeries, bilateral thumbs trigger finger surgeries, EGDS/colonoscopies with benign polypectomy, L7 kyphoplasty/rods/screws. Past Anesthesia/Blood Transfusion Reactions: Postoperative Nausea & Vomiting (PONV) Smoking Status: Former smoker - Past Family History Father Family Medical History: Cancer Additional Family Medical History / Comment(s): Patient reports her father of lung cancer at age 59. Brother(s) Additional Family Medical History / Comment(s): Patient has to penicillin major medical problems. Patient has 2 sisters with no major medical problems. Patient has one daughter with no major medical problems. Mother Family Medical History: No Reported History Additional Family Medical History / Comment(s): Mother is healthy and 84 yrs old. Medications and Allergies Home Medications Medication Instructions Recorded Confirmed Type Omeprazole 20 mg PO DAILY 09/05/15 06/30/21 History Venlafaxine HCl [Effexor XR] 150 mg PO DAILY 09/05/15 06/30/21 History amLODIPine [Norvasc] 10 mg PO DAILY 08/27/18 06/30/21 History ARIPiprazole [Abilify] 2 mg PO HS 06/30/21 06/30/21 History Fluticasone/Vilanterol [Breo 1 puff INHALATION RT-DAILY 06/30/21 06/30/21 Hist ory Ellipta 200-25 Mcg Inhaler] HYDROcodone/APAP 10-325MG [[place] 1 tab PO Q6HR PRN 06/30/21 06/30/21 History 10-325] Ipratropium-Albuterol Nebulize 3 ml INHALATION RT-Q4H PRN 06/30/21 06/30/21 History [Duoneb 0.5 mg-3 mg/3 ml Soln] LORazepam [Ativan] 1 mg PO TID PRN 06/30/21 06/30/21 History Palbociclib [Ibrance] 75 mg PO DIRECTED 06/30/21 06/30/21 History Allergies Allergy/AdvReac Type Severity Reaction Status Date / Time levofloxacin Allergy Rash/Hives Verified 06/30/21 14:08 ondansetron HCl AdvReac Severe Increased Verified 06/30/21 14:08 [From Zofran (as QT interval hydrochloride)] prochlorperazine edisylate AdvReac Severe Increased Verified 06/30/21 14:08 [From Compazine] QT interval prochlorperazine maleate AdvReac Severe Increased Verified 06/30/21 14:08 [From Compazine] QT Interval Physical Exam Vitals: Vital Signs Temp Pulse Resp BP Pulse Ox 07/01/21 11:39 106 H 22 127/84 93 L 07/01/21 10:59 101 H 18 07/01/21 10:49 103 H 07/01/21 08:57 104 H 20 124/90 94 L 07/01/21 07:26 103 H 07/01/21 07:14 101 H 07/01/21 05:48 96 18 118/84 91 L 07/01/21 05:30 18 07/01/21 03:00 18 07/01/21 00:10 105 H 18 116/78 93 L 06/30/21 22:04 104 H 06/30/21 18:15 108 H 18 133/88 91 L 06/30/21 15:36 114 H 18 06/30/21 15:29 111 H 18 06/30/21 14:13 99.2 F 114 H 22 104/78 90 L 06/30/21 13:31 114 H 22 06/30/21 12:31 102 H 20 06/30/21 12:17 92 L 06/30/21 12:06 106 H 24 122/83 83 L Intake and Output 06/30/21 07/01/21 07/01/21 22:59 06:59 14:59 Other: Weight 67.132 kg Results CBC & Chem 7: 06/30/21 13:02 06/30/21 13:02 Labs: Abnormal Lab Results - Last 24 Hours (Table) 06/30/21 06/30/21 Range/Units 13:02 13:02 RBC 3.66 L (3.80-5.40) m/uL MCV 101.2 H (80.0-100.0) fL Lymphocytes # 0.5 L (1.0-4.8) k/uL Sodium 134 L (137-145) mmol/L Chloride 93 L (98-107) mmol/L Carbon Dioxide 32 H (22-30) mmol/L Creatinine 0.49 L (0.52-1.04) mg/dL Glucose 145 H (74-99) mg/dL Thrombosis Risk Factor Assmnt - Choose All That Apply Any of the Below Risk Factors Present?: Yes Each Factor Represents 1 point: Abnormal pulmonary function (COPD), Age 41-60 years, Obesity (BMI >25) Other Risk Factors: Yes Each Risk Factor Represents 2 Points: Malignancy Other congenital or acquired thrombophilia - If yes, enter type in comment: No Thrombosis Risk Factor Assessment Total Risk Factor Score: 5 Thrombosis Risk Factor Assessment Level: High Risk
[2021-07-01 13:03] LABS: Glucose,Whole Blood 195 mg/dL (75-99)
[2021-07-01] MEDS: INSULIN ASPART (NovoLOG) 100 UNIT/ML VIAL SQ SCH ×3 (13:06→21:45)
[2021-07-01] MEDS: LORazepam 1 MG TAB PO PRN ×2 (13:13→23:41)
--- NOTE | 2021-07-01 14:03 | P.PN ---
Subjective Progress Note Date: 07/01/21 HISTORY OF PRESENT ILLNESS 60-year-old female one of Dr. 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 Also patient had abdominal uterine and fallopian metastasis from breast cancer with total hysterectomy. Patient had respiratory failure on and off in the past has been on home O2 she was hospitalized at [facility] over a month ago for COPD excessive patient was treated and done well. Patient developed to have much worsening shortness of breath cough wheezes try outpatient management not successful ended up seen Dr. Devi fleming and had apparently steroid injection along with antibiotics which did not help ended up in the emergency department at [facility] in the afternoon on 06/30/2021. At the time was seen she was quite hypoxic was having inspiratory expiratory wheezes and significant worsening symptoms. Her COVID-19 by PCR was negative chest x-ray showed COPD with right perihilar and chronic atelectasis with scar tissue. She was diagnosed with COPD excessive patient with severe bronchitis started on IV antibiotic along with IV steroids and bronchodilator pulse ox remained to be low require 4 L of O2 to keep pulse ox above 90 percentile. She was hospitalized with above problem. 07/01: Patient is seen today in the emergency center waiting for a [facility] bed. She has been started on IV Solu-Medrol and NovoLog scale will be added. IV fluids will be discontinued. She has been seen by Dr. Saldivar and Pulmicort and Perforomist added. Patient states that she is feeling much better breathing status is improved from yesterday most likely secondary to steroids. She has been afebrile, heart rate 103, blood pressure 124/90, pulse ox 94% on 3 L nasal cannula. Patient voices that she wishes to BE a no code. REVIEW OF SYSTEMS Constitutional: No fever, no chills, no night sweats. No weight change. No weakness, fatigue or lethargy. No daytime sleepiness. EENT: No headache. No blurred vision or double vision, no loss of vision. No loss of Hearing, no ringing in the ears, no dizziness. Significant congestion with no epistaxis no sore throat. Lungs: Positive shortness of breath cough wheezes. Cardiovascular: No chest pain, no lower extremity edema. No palpitations. No paroxysmal nocturnal dyspnea. No orthopnea. No lightheadedness or dizziness. No syncopal episodes. Abdominal: No abdominal pain. No nausea, vomiting. No diarrhea. No constipation. No bloody or tarry stools.. No loss of appetite. Genitourinary: No dysuria, increased frequency, urgency. No urinary retention. Musculoskeletal: No myalgias. No muscle weakness, no gait dysfunction, no frequent falls. No back pain. No neck pain. Integumentary: No wounds, no lesions. No rash or pruritus. No unusual bruising. No change in hair or nails. Neurologic: No aphasia. No facial droop. No change in mentation. No head injury. No headache. No paralysis. No paresthesia. Psychiatric: No depression. No anxiety. No mood swings. Endocrine: No abnormal blood sugars. No weight change. No excessive sweating or thirst. No cold intolerance. PHYSICAL EXAMINATION Gen: This is a 60-year-old laying in bed look in mild respiratory distress. HEENT: Head is atraumatic, normocephalic. Pupils equal, round. Sclerae is anicteric. NECK: Supple. No JVD. No lymphadenopathy. No thyromegaly. LUNGS: Decreased breath some bilateral rhonchi positive mild crackles bilaterally especially in the bases positive inspiratory expiratory wheezes. HEART: Regular rate and rhythm. No murmur. ABDOMEN: Soft. Bowel sounds are present. No masses. No tenderness. EXTREMITIES: No pedal edema. No calf tenderness. NEUROLOGICAL: Patient is awake, alert and oriented x3. Cranial nerves 2 through 12 are grossly intact. ASSESSMENT AND PLAN 1. Acute respiratory failure: Combination of COPD exacerbation or never get an along with severe bronchitis. Continue O2, continue steroid and bronchodilator for now. We'll consult pulmonary chest x-ray will be repeated again in 48 hours. 2. COPD excessive patient: With worsening symptoms, continue patient on IV steroid, continue DuoNeb along with Pulmicort. 3. Severe purulent tracheal bronchitis: Continue patient on antibiotic she received 1 dose of Rocephin we will add azithromycin to 50 mg a day at this point. 4. Advance breast cancer with lung metastasis: Still seen oncology still on immune oh therapy. 5. hypertension: Patient has been on amlodipine 10 mg a day continue medication. 6. Recurrent depression: Continue patient on Abilify total of 2 mg twice a day along with lorazepam and Effexor. 7. Hyperglycemia: Accu-Chek with sliding scales coverage and be done. 8. GI prophylaxis: Patient will be on pantoprazole 40 mg daily.. 9. DVT prophylaxis: Patient will be on heparin subcutaneous.. 10. CODE STATUS: No code. 11. COVID-19 testing were negative. DISCHARGE PLAN Home Impression and plan of care have been directed as dictated by the signing physician. Arleen Gamez nurse practitioner acting as scribe for signing physician. Objective - Vital Signs Vital signs: Vital Signs Temp 99.2 F 06/30/21 14:13 Pulse 104 H 07/01/21 08:57 Resp 20 07/01/21 08:57 BP 124/90 07/01/21 08:57 Pulse Ox 94 L 07/01/21 08:57 Intake & Output 06/30/21 07/01/21 07/01/21 18:59 06:59 18:59 Weight 67.132 kg 67.132 kg - Labs CBC & Chem 7: 06/30/21 13:02 06/30/21 13:02 Labs: Abnormal Lab Results - Last 24 Hours (Table) 06/30/21 06/30/21 Range/Units 13:02 13:02 RBC 3.66 L (3.80-5.40) m/uL MCV 101.2 H (80.0-100.0) fL Lymphocytes # 0.5 L (1.0-4.8) k/uL Sodium 134 L (137-145) mmol/L Chloride 93 L (98-107) mmol/L Carbon Dioxide 32 H (22-30) mmol/L Creatinine 0.49 L (0.52-1.04) mg/dL Glucose 145 H (74-99) mg/dL
[2021-07-01 16:48] LABS: Glucose,Whole Blood 108 mg/dL (75-99)
[2021-07-01] MEDS: FORMOTEROL FUMARATE 20 MCG/2 ML NEBU INHALATION SCH (21:12)
[2021-07-01 21:40] LABS: Glucose,Whole Blood 200 mg/dL (75-99)
[2021-07-02] MEDS: IPRATROPIUM-ALBUTEROL 3 ML NEB INHALATION SCH ×6 (05:14→23:53)
[2021-07-02 06:59] LABS: Glucose,Whole Blood 170 mg/dL (75-99)
[2021-07-02] MEDS: PANTOPRAZOLE 40 MG TABLET PO SCH (07:37)
[2021-07-02] MEDS: VENLAFAXINE HCL ER 150 MG CAP PO SCH (07:37)
[2021-07-02] MEDS: INSULIN ASPART (NovoLOG) 100 UNIT/ML VIAL SQ SCH ×4 (07:37→22:33)
[2021-07-02] MEDS: amLODIPine 10 MG TAB PO SCH (07:37)
[2021-07-02] MEDS: methylPREDNISolone SOD SUCCI 125 MG/2 ML VIAL IV SCH ×4 (07:37→23:39)
[2021-07-02] MEDS: AZITHROMYCIN 250 MG TAB PO SCH (07:38)
[2021-07-02] MEDS: FORMOTEROL FUMARATE 20 MCG/2 ML NEBU INHALATION SCH ×2 (08:39→21:13)
[2021-07-02] MEDS: BUDESONIDE 1 MG/2 ML NEBU INHALATION SCH ×2 (08:39→21:13)
[2021-07-02] MEDS: LORazepam 1 MG TAB PO PRN ×3 (10:32→23:39)
[2021-07-02 11:30] LABS: Glucose,Whole Blood 173 mg/dL (75-99)
--- NOTE | 2021-07-02 11:40 | XR ---
EXAMINATION TYPE: XR chest 1V portable DATE OF EXAM: 07/02/2021 COMPARISON: 06/30/2021, 10/19/2018, 10/19/2018 CTA chest. INDICATION: Short of breath TECHNIQUE: Single frontal view of the chest is obtained. FINDINGS: The heart size is normal. The pulmonary vasculature is normal. There is density within the periphery of the right mid lung. Atelectasis could be considered. Underly ing mass measuring 1.0 cm should also be considered. This may be increase in thickness over the inte rval. Small right pleural effusion is present. IMPRESSION: 1. There is persistent thickening within the periphery of the right mid lung currently measuring 1.0 cm in thickness which is increased from 2019. Additional workup with CT chest is recommended. Neoplas m is not excluded
[2021-07-02] MEDS: ENOXAPARIN 40 MG/0.4 ML SYRINGE SQ SCH (11:56)
--- NOTE | 2021-07-02 12:23 | P.PN ---
Subjective Progress Note Date: 07/02/21 Principal diagnosis: Acute exacerbation of COPD This is a 57-year-old white female patient with past medical history of severe COPD, stage IV metastatic breast cancer most recently patient was on Ibrance and Foslodex ( last treatment was on June 26, 2021) patient follows at the [facility] for her breast cancer care, with previous radiation therapy, hypertension, hyperlipidemia, depression, anxiety. Patient is status post bilateral mastectomy and oophorectomy at the [facility]. Patient presented to the emergency department on 06/30/2021 for evaluation of increased cough, and dyspnea and this has been going on since Tuesday. She went to see Dr. Azevedo in the office and was given a steroid injection, she has not improved, she denies any fever or chills, she has been vaccinated against coronavirus. Her cough is mostly nonproductive, no complaints of central chest pain, swelling or pain. Her chest x-ray shows COPD with right perihilar chronic atelectasis or scarring, based on comparison to previous images. COVID-19 PCR was negative, lab work was reviewed, white blood cell count was normal at 4.3, hemoglobin was 12.12, correlation profile was within normal limits, sodium is 134, potassium is 4.3, chloride is 93, CO2 32, BUN is 9, creatinine 0.49, LFTs were within normal limits. Patient was started on empiric antibiotics, IV steroids and bronchodilators, and we were asked to see the patient consultation. This morning she seen resting on a gurney in the emergency department, she is awaiting a bed on the medical surgical unit, vital signs are stable, she is in sinus mechanism with a rate of 107, pulse ox is 91% on 4 L, patient usually wears 2 L on a regular basis. On 07/02/2021 patient seen in follow-up on the medical surgical floor, patient thinks that her breathing is worse today, she is very tight bronchospastic very short of breath, she is on 4 L of oxygen pulse ox of 92-94%. Afebrile, hemodynamically she is stable, she is on IV Solu-Medrol 60 mg every 8 hours, she is on Pulmicort and Perforomist, is on antibiotics. She's had no fever or chills, she tested negative for COVID-19. Repeat chest x-ray was obtained showing persistent thickening within the periphery of the right lung, small right pleural effusion. Her pro-calcitonin was negative on admission is 0.09, blood cell count is normal at 4.3, hemoglobin was 12.2, was no evidence of fluid overload. He is bringing up some yellowish colored sputum, she is on azithromycin for antibiotic coverage. No swelling in lower extremities. She is receiving when necessary Ativan for anxiety. Objective - Vital Signs Vital signs: Vital Signs Temp 97.9 F 07/02/21 07:00 Pulse 110 H 07/02/21 12:05 Resp 20 07/02/21 12:05 BP 136/88 07/02/21 07:00 Pulse Ox 94 L 07/02/21 08:39 Intake & Output 07/01/21 07/02/21 07/02/21 18:59 06:59 18:59 Intake Total 236 Balance 236 Weight 67.132 kg Intake: Oral 236 Other: # Voids 3 - Exam GENERAL EXAM: Alert, a pleasant, 60-year-old white female, resting on the gurney in the emergency department on 4 L of oxygen with a pulse ox of 94% comfortable in no apparent distress. HEAD: Normocephalic/atraumatic. EYES: Normal reaction of pupils, equal size. Conjunctiva pink, sclera white. NOSE: Clear with pink turbinates. THROAT: No erythema or exudates. NECK: No masses, no JVD, no thyroid enlargement, no adenopathy. CHEST: No chest wall deformity. Symmetrical expansion. LUNGS: diminished breath sounds bilaterally,no crackles, mild wheeze,no rhonchi or dullness. CVS: Regular rate and rhythm, normal S1 and S2, no gallops, no murmurs, no rubs ABDOMEN: Soft, nontender. No hepatosplenomegaly, normal bowel sounds, no guarding or rigidity. EXTREMITIES: No clubbing, no edema, no cyanosis, 2+ pulses and upper and lower extremities. MUSCULOSKELETAL: Muscle strength and tone normal. SPINE: No scoliosis or deformity SKIN: No rashes CENTRAL NERVOUS SYSTEM: Alert and oriented -3. No focal deficits, tone is normal in all 4 extremities. PSYCHIATRIC: Alert and oriented -3. Appropriate affect. Intact judgment and insight. - Labs CBC & Chem 7: 06/30/21 13:02 06/30/21 13:02 Labs: Abnormal Lab Results - Last 24 Hours (Table) 07/01/21 07/01/21 07/01/21 Range/Units 13:02 16:47 21:39 POC Glucose (mg/dL) 195 H 108 H 200 H (75-99) mg/dL 07/02/21 07/02/21 Range/Units 06:57 11:29 POC Glucose (mg/dL) 170 H 173 H (75-99) mg/dL Assessment and Plan Plan: assessment: #1. Acute exacerbation of chronic obstructive pulmonary disease, no evidence of acute pulmonary process on the chest x-ray, COVID 19 PCR was negative, patient is status post completed COVID-19 vaccination. #2. Stage IV metastatic breast cancer, status post bilateral mastectomy and oophorectomy, patient follows at the [facility] for her cancer care, she is currently on Ibrance and Foslodex, last treatment was 06/26/2021 #3. History of COPD, on home oxygen, usually wears 2 L on a regular basis, baseline FEV1 is 37% of predicted #4. History of chronic tobacco dependence #5. Hypertension #6. Depression #7. History of Alysha syndrome Plan: This chest x-ray has been reviewed, not significantly changed from previous x-r ay, tiny right pleural effusion Continue current medical treatment Continue with oral antibiotics Continue with IV steroids and nebulized bronchodilators Add Theophylline 300 mg daily Continue to follow clinical course I performed a history & physical examination of the patient and discussed their management with my nurse practitioner, Mere Ruth. I reviewed the nurse practitioner's note and agree with the documented findings and plan of care. Lung sounds are positive for diffuse wheezes throughout the lung [place]. The findings and the impression was discussed with the patient. I attest to the documentation by the nurse practitioner. #4. Time with Patient: Less than 30
[2021-07-02 16:29] LABS: Glucose,Whole Blood 236 mg/dL (75-99)
[2021-07-02 19:16] LABS: AST 30 U/L (14-36); African American GFR (CKD) >90 (>60 ml/min/1.73 sqM); Albumin 4.2 g/dL (3.5-5.0); Albumin/Globulin Ratio 1.5; Alkaline Phosphatase 73 U/L (38-126); Anion Gap 7 mmol/L; Blood Urea Nitrogen 18 mg/dL (7-17); Calcium 9.1 mg/dL (8.4-10.2); Carbon Dioxide 35 mmol/L (22-30); Chloride 95 mmol/L (98-107); Globulin 2.8 g/dL; Glucose 180 mg/dL (74-99); Non-African American GFR(CKD) >90 (>60 ml/min/1.73 sqM); Sodium 137 mmol/L (137-145); Total Bilirubin 0.3 mg/dL (0.2-1.3)
[2021-07-02 19:34] LABS: ALT 19 U/L (4-34); Potassium 4.5 mmol/L (3.5-5.1)
[2021-07-02 21:32] LABS: Glucose,Whole Blood 137 mg/dL (75-99)
[2021-07-02] MEDS: ARIPiprazole 2 MG TAB PO SCH ×2 (22:34→22:37)
[2021-07-02] MEDS: THEOPHYLLINE 24 HOUR 300 MG CAP.ER.24H PO SCH (22:34)
[2021-07-03 00:16] LABS: Glucose,Whole Blood 201 mg/dL (75-99)
--- NOTE | 2021-07-03 00:29 | CT ---
CT CHEST FOR PULMONARY EMBOLISM. EXAMINATION TYPE: CT chest angio for PE DATE OF EXAM: 07/02/2021 INDICATION: SOB CT DLP: 265.7 mGycm, Automated exposure control for dose reduction was used. CONTRAST: Patient injected with 80 mL of Isovue 370. COMPARISON: 10/19/2018 TECHNIQUE: CT of the chest is performed on a spiral scan at 2 mm thick sections. Study is performed with intravenous contrast timed for evaluation for pulmonary embolism. This will limit additional po rtions of the evaluation. 3-D MIP images reconstructed by the technologist are reviewed on the compu ter in the coronal and sagittal planes. FINDINGS: No persistent filling defects are evident to suggest an acute pulmonary embolism. No mediastinal or hilar adenopathy enlarged by CT criteria is evident. The ascending aorta diameter at the level of the main pulmonary artery is 3.1 cm. The main pulmonary artery diameter at the bifur cation is 2.9 cm. Lung windows are clear. Limited CT section through the upper abdomen are unremarkable. Note is made of bilateral breast prost heses. IMPRESSIONS: 1. No acute pulmonary embolism
[2021-07-03 00:31] LABS: ABG Oxygen Saturation 99.2 % (94-97); ABG PO2 288 mmHg (83-108); Allen Test Performed? Yes
[2021-07-03 00:43] LABS: ABG PCO2 >120 mmHg (35-45); ABG PH 7.06 (7.35-7.45)
[2021-07-03] MEDS: methylPREDNISolone SOD SUCCI 125 MG/2 ML VIAL IV SCH ×3 (06:01→18:02)
[2021-07-03] MEDS: IPRATROPIUM-ALBUTEROL 3 ML NEB INHALATION SCH ×5 (06:03→20:02)
[2021-07-03 07:01] LABS: Glucose,Whole Blood 174 mg/dL (75-99)
[2021-07-03] MEDS: INSULIN ASPART (NovoLOG) 100 UNIT/ML VIAL SQ SCH ×4 (08:43→20:54)
[2021-07-03] MEDS: LORazepam 1 MG TAB PO PRN (08:55)
[2021-07-03] MEDS: VENLAFAXINE HCL ER 150 MG CAP PO SCH (08:55)
[2021-07-03] MEDS: amLODIPine 10 MG TAB PO SCH (08:55)
[2021-07-03] MEDS: BUDESONIDE 1 MG/2 ML NEBU INHALATION SCH ×2 (09:13→20:03)
[2021-07-03] MEDS: FORMOTEROL FUMARATE 20 MCG/2 ML NEBU INHALATION SCH ×2 (09:13→20:19)
--- NOTE | 2021-07-03 10:03 | P.PN ---
Subjective Progress Note Date: 07/03/21 Principal diagnosis: Acute exacerbation of COPD This is a 57-year-old white female patient with past medical history of severe COPD, stage IV metastatic breast cancer most recently patient was on Ibrance and Foslodex ( last treatment was on June 26, 2021) patient follows at the [facility] for her breast cancer care, with previous radiation therapy, hypertension, hyperlipidemia, depression, anxiety. Patient is status post bilateral mastectomy and oophorectomy at the [facility]. Patient presented to the emergency department on 06/30/2021 for evaluation of increased cough, and dyspnea and this has been going on since Tuesday. She went to see Dr. Azevedo in the office and was given a steroid injection, she has not improved, she denies any fever or chills, she has been vaccinated against coronavirus. Her cough is mostly nonproductive, no complaints of central chest pain, swelling or pain. Her chest x-ray shows COPD with right perihilar chronic atelectasis or scarring, based on comparison to previous images. COVID-19 PCR was negative, lab work was reviewed, white blood cell count was normal at 4.3, hemoglobin was 12.12, correlation profile was within normal limits, sodium is 134, potassium is 4.3, chloride is 93, CO2 32, BUN is 9, creatinine 0.49, LFTs were within normal limits. Patient was started on empiric antibiotics, IV steroids and bronchodilators, and we were asked to see the patient consultation. This morning she seen resting on a gurney in the emergency department, she is awaiting a bed on the medical surgical unit, vital signs are stable, she is in sinus mechanism with a rate of 107, pulse ox is 91% on 4 L, patient usually wears 2 L on a regular basis. On 07/02/2021 patient seen in follow-up on the medical surgical floor, patient thinks that her breathing is worse today, she is very tight bronchospastic very short of breath, she is on 4 L of oxygen pulse ox of 92-94%. Afebrile, hemodynamically she is stable, she is on IV Solu-Medrol 60 mg every 8 hours, she is on Pulmicort and Perforomist, is on antibiotics. She's had no fever or chills, she tested negative for COVID-19. Repeat chest x-ray was obtained showing persistent thickening within the periphery of the right lung, small right pleural effusion. Her pro-calcitonin was negative on admission is 0.09, blood cell count is normal at 4.3, hemoglobin was 12.2, was no evidence of fluid overload. He is bringing up some yellowish colored sputum, she is on azithromycin for antibiotic coverage. No swelling in lower extremities. She is receiving when necessary Ativan for anxiety. On today's evaluation on 07/03/2021 patient is seen in follow-up. Overnight her breathing continued to worsen, patient was quite bronchospastic last night, with labored breathing, and did become less responsive. Rapid response team was called, blood gas was obtained showing pO2 of 288, pCO2 of greater than 120, pH of 7.06. Patient was placed on BiPAP support with pressures of 12 and 5 and FiO2 of 100%, FiO2 has since been dropped down to 40%. This morning she remains on BiPAP support, she started to wake up, to provide some basic answers, although is she still very dyspneic to talk in sentences. Sounds are positive for diffuse wheezes. Yesterday's chest x-ray noted a persistent density within the periphery of the right midlung, with a consideration for atelectasis. Underlying mass could not be completely excluded. CTA chest was obtained last night going no evidence of pulmonary embolism, spinal or hilar adenopathy by CT criteria, lung windows were clear. Vision is maximized on medical treatment, she remains on IV Solu-Medrol 60 mg every 6 hours, azithromycin, Pulmicort, Perforomist, DuoNeb, yesterday we added aspirin 300 mg at bedtime. Her pro calcitonin level was negative this admission 0.09, COVID-19 PCR was negative, yesterday's blood work was fairly unremarkable, d-dimer was -0.56. Objective - Vital Signs Vital signs: Vital Signs Temp 98.5 F 07/03/21 08:00 Pulse 100 07/03/21 09:42 Resp 30 H 07/03/21 09:00 BP 148/94 07/03/21 08:00 Pulse Ox 91 L 07/03/21 09:13 Intake & Output 07/02/21 07/03/21 07/03/21 18:59 06:59 18:59 Intake Total 472 Balance 472 Intake: Oral 472 Other: # Voids 2 4 # Bowel Movements 0 - Exam GENERAL EXAM: A bit lethargic but responsive, quite dyspneic , 60-year-old white female, BiPAP support with pressures of 12 and 5 and FiO2 of 35%, dy spneic, bronchospastic, using accessory muscles of breathing, desaturating, with a pulse ox of 81%, and FiO2 has been adjusted back up to 40%, and EPAP was increased to 6, and pulse ox is improving HEAD: Normocephalic/atraumatic. EYES: Normal reaction of pupils, equal size. Conjunctiva pink, sclera white. NOSE: Clear with pink turbinates. THROAT: No erythema or exudates. NECK: No masses, no JVD, no thyroid enlargement, no adenopathy. CHEST: No chest wall deformity. Symmetrical expansion. LUNGS: diminished breath sounds bilaterally diffuse wheezes CVS: Regular rate and rhythm, normal S1 and S2, no gallops, no murmurs, no rubs ABDOMEN: Soft, nontender. No hepatosplenomegaly, normal bowel sounds, no guarding or rigidity. EXTREMITIES: No clubbing, no edema, no cyanosis, 2+ pulses and upper and lower extremities. MUSCULOSKELETAL: Muscle strength and tone normal. SPINE: No scoliosis or deformity SKIN: No rashes CENTRAL NERVOUS SYSTEM: Alert and oriented -3. No focal deficits, tone is n ormal in all 4 extremities. PSYCHIATRIC: Alert and oriented -3. Appropriate affect. Intact judgment and insight. - Labs CBC & Chem 7: 06/30/21 13:02 07/02/21 11:57 Labs: Abnormal Lab Results - Last 24 Hours (Table) 07/02/21 07/02/21 07/02/21 Range/Units 11:29 11:57 16:26 ABG pH (7.35-7.45) ABG pCO2 (35-45) mmHg ABG pO2 (83-108) mmHg ABG O2 Saturation (94-97) % Chloride 95 L (98-107) mmol/L Carbon Dioxide 35 H (22-30) mmol/L BUN 18 H (7-17) mg/dL Glucose 180 H (74-99) mg/dL POC Glucose (mg/dL) 173 H 236 H (75-99) mg/dL 07/02/21 07/03/21 07/03/21 Range/Units 21:30 00:14 00:23 ABG pH 7.06 L* (7.35-7.45) ABG pCO2 >120 H* (35-45) mmHg ABG pO2 288 H (83-108) mmHg ABG O2 Saturation 99.2 H (94-97) % Chloride (98-107) mmol/L Carbon Dioxide (22-30) mmol/L BUN (7-17) mg/dL Glucose (74-99) mg/dL POC Glucose (mg/dL) 137 H 201 H (75-99) mg/dL 07/03/21 Range/Units 07:00 ABG pH (7.35-7.45) ABG pCO2 (35-45) mmHg ABG pO2 (83-108) mmHg ABG O2 Saturation (94-97) % Chloride (98-107) mmol/L Carbon Dioxide (22-30) mmol/L BUN (7-17) mg/dL Glucose (74-99) mg/dL POC Glucose (mg/dL) 174 H (75-99) mg/dL Assessment and Plan Plan: assessment: #1. Acute exacerbation of chronic obstructive pulmonary disease, no evidence of acute pulmonary process on the chest x-ray, COVID 19 PCR was negative, patient is status post completed COVID-19 vaccination. #2. Stage IV metastatic breast cancer, status post bilateral mastectomy and oophorectomy, patient follows at the [facility] for her cancer care, she is currently on Ibrance and Foslodex, last treatment was 06/26/2021 #3. History of COPD, on home oxygen, usually wears 2 L on a regular basis, baseline FEV1 is 37% of predicted #4. History of chronic tobacco dependence #5. Hypertension #6. Depression #7. History of Alysha syndrome #8. Acute on chronic hypercapnic respiratory failure related to acute exacerbation of COPD, chest x-ray showed right midlung density, with possibility of atelectasis, CTA chest showed no evidence of pulmonary embolism, lung windows were clear, no mediastinal or hilar adenopathy. She was placed on BiPAP support on which she remains with pressures of 12 and 5 and FiO2 of 35% Plan: Continue BiPAP support, likely with pressures of 12 and 5 and FiO2 of 35% IPAP was increased to 15 however patient could not tolerate it, he was dropped back down to 12, EPAP has been increased to 6, and FiO2 was increased to 40% as The patient was desaturating to 80-81% Continue IV steroids, continue abiotic's, CTA chest has been reviewed showing no evidence of PE, the lung windows were clear, no mediastinal or hilar adenopathy Continue nebulized bronchodilators Will consider a dose of IV Lasix We'll continue to closely follow Overall prognosis is extremely guarded code status is DO NOT RESUSCITATE, continue supportive medical treatments I performed a history & physical examination of the patient and discussed their management with my nurse practitioner, Mere Ruth. I reviewed the nurse practitioner's note and agree with the documented findings and plan of care. Lung sounds are positive for diffuse wheezes throughout the lung [place]. The findings and the impression was discussed with the patient. I attest to the documentation by the nurse practitioner. #4. Time with Patient: Less than 30
[2021-07-03] MEDS: ENOXAPARIN 40 MG/0.4 ML SYRINGE SQ SCH (11:19)
[2021-07-03] MEDS: ARIPiprazole 2 MG TAB PO SCH ×2 (11:19→20:54)
[2021-07-03] MEDS: PANTOPRAZOLE 40 MG TABLET PO SCH (11:19)
[2021-07-03] MEDS: AZITHROMYCIN 250 MG TAB PO SCH (11:19)
[2021-07-03 11:26] LABS: Glucose,Whole Blood 219 mg/dL (75-99)
[2021-07-03] MEDS ORDERED: FUROSEMIDE 10 MG/ML 4 ML VIAL IV STA (14:19)
--- NOTE | 2021-07-03 14:30 | P.PN ---
Subjective Progress Note Date: 07/02/21 HISTORY OF PRESENT ILLNESS 60-year-old female one of Dr. 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 Also patient had abdominal uterine and fallopian metastasis from breast cancer with total hysterectomy. Patient had respiratory failure on and off in the past has been on home O2 she was hospitalized at [facility] over a month ago for COPD excessive patient was treated and done well. Patient developed to have much worsening shortness of breath cough wheezes try outpatient management not successful ended up seen Dr. Devi fleming and had apparently steroid injection along with antibiotics which did not help ended up in the emergency department at [facility] in the afternoon on 06/30/2021. At the time was seen she was quite hypoxic was having inspiratory expiratory wheezes and significant worsening symptoms. Her COVID-19 by PCR was negative chest x-ray showed COPD with right perihilar and chronic atelectasis with scar tissue. She was diagnosed with COPD excessive patient with severe bronchitis started on IV antibiotic along with IV steroids and bronchodilator pulse ox remained to be low require 4 L of O2 to keep pulse ox above 90 percentile. She was hospitalized with above problem. 07/01: Patient is seen today in the emergency center waiting for a [facility] bed. She has been started on IV Solu-Medrol and NovoLog scale will be added. IV fluids will be discontinued. She has been seen by Dr. Saldivar and Pulmicort and Perforomist added. Patient states that she is feeling much better breathing status is improved from yesterday most likely secondary to steroids. She has been afebrile, heart rate 103, blood pressure 124/90, pulse ox 94% on 3 L nasal cannula. Patient voices that she wishes to BE a no code. 07/02: Complaints of worsening shortness of breath this morning. She did have a good evening and did not take evening nebulizer treatment. She has increased shortness of breath the pulse ox is 92% on 4 L nasal cannula but patient states that her breathing is not good this morning. D-dimer ordered as well as chest x-ray and Ativan were ordered by home medicine. Patient verbalizes that she does not want to go on BiPAP. She remains on Solu-Medrol 60 mg IV every 6 hours REVIEW OF SYSTEMS Constitutional: No fever, no chills, no night sweats. No weight change. No weakness, fatigue or lethargy. No daytime sleepiness. EENT: No headache. No blurred vision or double vision, no loss of vision. No loss of Hearing, no ringing in the ears, no dizziness. Significant congestion with no epistaxis no sore throat. Lungs: Positive shortness of breath cough wheezes. Worsening shortness of breath at rest. Cardiovascular: No chest pain, no lower extremity edema. No palpitations. No paroxysmal nocturnal dyspnea. No orthopnea. No lightheadedness or dizziness. No syncopal episodes. Abdominal: No abdominal pain. No nausea, vomiting. No diarrhea. No constipation. No bloody or tarry stools.. No loss of appetite. Genitourinary: No dysuria, increased frequency, urgency. No urinary retention. Musculoskeletal: No myalgias. No muscle weakness, no gait dysfunction, no frequent falls. No back pain. No neck pain. Integumentary: No wounds, no lesions. No rash or pruritus. No unusual bruising. No change in hair or nails. Neurologic: No aphasia. No facial droop. No change in mentation. No head injury. No headache. No paralysis. No paresthesia. Psychiatric: No depression. No anxiety. No mood swings. Endocrine: No abnormal blood sugars. No weight change. No excessive sweating or thirst. No cold intolerance. PHYSICAL EXAMINATION Gen: This is a 60-year-old laying in bed look in mild respiratory distress. HEENT: Head is atraumatic, normocephalic. Pupils equal, round. Sclerae is anicteric. NECK: Supple. No JVD. No lymphadenopathy. No thyromegaly. LUNGS: Decreased breath sounds bilateral rhonchi positive inspiratory expiratory wheezes. No accessory muscle usage and intercostal retractions. HEART: Regular rate and rhythm. No murmur. ABDOMEN: Soft. Bowel sounds are present. No masses. No tenderness. EXTREMITIES: No pedal edema. No calf tenderness. NEUROLOGICAL: Patient is awake, alert and oriented x3. Cranial nerves 2 through 12 are grossly intact. ASSESSMENT AND PLAN 1. Acute respiratory failure: Combination of COPD exacerbation or never get an along with severe bronchitis. Continue O2, continue steroid and bronchodilator for now. Pulmonary consult appresicated. Chest x-ray today. 2. COPD desperation With worsening symptoms, continue patient on IV steroid, continue DuoNeb along with Pulmicort. 3. Severe purulent tracheal bronchitis: Continue patient on antibiotic she received 1 dose of Rocephin we will add azithromycin to 50 mg a day at this point. 4. Advance breast cancer with lung metastasis: Still seen oncology still on immune oh therapy. 5. hypertension: Patient has been on amlodipine 10 mg a day continue medication. 6. Recurrent depression: Continue patient on Abilify total of 2 mg twice a day along with lorazepam and Effexor. 7. Hyperglycemia: Accu-Chek with sliding scales coverage and be done. 8. GI prophylaxis: Patient will be on pantoprazole 40 mg daily. 9. DVT prophylaxis: Patient will be on heparin subcutaneous.. 10. CODE STATUS: No code. 11. COVID-19 testing were negative. DISCHARGE PLAN Home Impression and plan of care have been directed as dictated by the signing physician. Arleen Gamez nurse practitioner acting as scribe for signing physician. Objective - Vital Signs Vital signs: Vital Signs Temp 97.9 F 07/02/21 07:00 Pulse 111 H 07/02/21 09:09 Resp 24 07/02/21 09:09 BP 136/88 07/02/21 07:00 Pulse Ox 94 L 07/02/21 08:39 Intake & Output 07/01/21 07/02/21 07/02/21 18:59 06:59 18:59 Intake Total 236 Balance 236 Weight 67.132 kg Intake: Oral 236 Other: # Voids 3 - Labs CBC & Chem 7: 06/30/21 13:02 07/02/21 11:57 Labs: Abnormal Lab Results - Last 24 Hours (Table) 07/01/21 07/01/21 07/01/21 Range/Units 13:02 16:47 21:39 POC Glucose (mg/dL) 195 H 108 H 200 H (75-99) mg/dL 07/02/21 Range/Units 06:57 POC Glucose (mg/dL) 170 H (75-99) mg/dL
--- NOTE | 2021-07-03 14:39 | P.PN ---
Subjective Progress Note Date: 07/03/21 HISTORY OF PRESENT ILLNESS 60-year-old female one of Dr. 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 Also patient had abdominal uterine and fallopian metastasis from breast cancer with total hysterectomy. Patient had respiratory failure on and off in the past has been on home O2 she was hospitalized at [facility] over a month ago for COPD excessive patient was treated and done well. Patient developed to have much worsening shortness of breath cough wheezes try outpatient management not successful ended up seen Dr. Devi fleming and had apparently steroid injection along with antibiotics which did not help ended up in the emergency department at [facility] in the afternoon on 06/30/2021. At the time was seen she was quite hypoxic was having inspiratory expiratory wheezes and significant worsening symptoms. Her COVID-19 by PCR was negative chest x-ray showed COPD with right perihilar and chronic atelectasis with scar tissue. She was diagnosed with COPD excessive patient with severe bronchitis started on IV antibiotic along with IV steroids and bronchodilator pulse ox remained to be low require 4 L of O2 to keep pulse ox above 90 percentile. She was hospitalized with above problem. 07/01: Patient is seen today in the emergency center waiting for a [facility] bed. She has been started on IV Solu-Medrol and NovoLog scale will be added. IV fluids will be discontinued. She has been seen by Dr. Saldivar and Pulmicort and Perforomist added. Patient states that she is feeling much better breathing status is improved from yesterday most likely secondary to steroids. She has been afebrile, heart rate 103, blood pressure 124/90, pulse ox 94% on 3 L nasal cannula. Patient voices that she wishes to BE a no code. 07/02: Complaints of worsening shortness of breath this morning. She did have a good evening and did not take evening nebulizer treatment. She has increased shortness of breath the pulse ox is 92% on 4 L nasal cannula but patient states that her breathing is not good this morning. D-dimer ordered as well as chest x-ray and Ativan were ordered by home medicine. Patient verbalizes that she does not want to go on BiPAP. She remains on Solu-Medrol 60 mg IV every 6 hours 07/03: A-Team was called this morning at midnight this patient was found unresponsive with agonal breathing. Patient was placed on BiPAP and woke up shortly after. Pulmonary medicine has added and theophylline, continue Solu- Medrol 60 mg IV every 6 hours, nebulizers, Pulmicort, Perforomist. Chest x-ray from yesterday afternoon revealed persistent thickening within the periphery of the right mid lung currently measuring 1 cm in thickness which is increased from 2019. CT chest is recommended. Neoplasm is not excluded. CT angiogram of the chest revealed no acute pulmonary embolism. Patient has been afebrile, heart rate 100, blood pressure 145/88, respiratory rate 30, pulse ox 88% on BiPAP. R epeat Covid 19 testing ordered. REVIEW OF SYSTEMS Constitutional: No fever, no chills, no night sweats. No weight change. No weakness, fatigue or lethargy. No daytime sleepiness. EENT: No headache. No blurred vision or double vision, no loss of vision. No loss of Hearing, no ringing in the ears, no dizziness. Significant congestion with no epistaxis no sore throat. Lungs: Positive shortness of breath cough wheezes. Worsening shortness of breath at rest. Cardiovascular: No chest pain, no lower extremity edema. No palpitations. No paroxysmal nocturnal dyspnea. No orthopnea. No lightheadedness or dizziness. No syncopal episodes. Abdominal: No abdominal pain. No nausea, vomiting. No diarrhea. No constipation. No bloody or tarry stools.. No loss of appetite. Genitourinary: No dysuria, increased frequency, urgency. No urinary retention. Musculoskeletal: No myalgias. No muscle weakness, no gait dysfunction, no frequent falls. No back pain. No neck pain. Integumentary: No wounds, no lesions. No rash or pruritus. No unusual bruising. No change in hair or nails. Neurologic: No aphasia. No facial droop. No change in mentation. No head injury. No headache. No paralysis. No paresthesia. Psychiatric: No depression. No anxiety. No mood swings. Endocrine: No abnormal blood sugars. PHYSICAL EXAMINATION Gen: This is a 60-year-old laying in bed look in mild to moderate respiratory distress. HEENT: Head is atraumatic, normocephalic. Pupils equal, round. Sclerae is anicteric. NECK: Supple. No JVD. No lymphadenopathy. No thyromegaly. LUNGS: Decreased breath sounds bilateral rhonchi positive inspiratory expiratory wheezes. Noted accessory muscle usage and intercostal retractions. HEART: Regular rate and rhythm. No murmur. ABDOMEN: Soft. Bowel sounds are present. No masses. No tenderness. EXTREMITIES: No pedal edema. No calf tenderness. NEUROLOGICAL: Patient is awake, alert and oriented x3. Cranial nerves 2 through 12 are grossly intact. ASSESSMENT AND PLAN 1. Acute respiratory failure: Combination of COPD exacerbation or never get an along with severe bronchitis. Continue O2 on BiPAP, Solu-Medrol 60 mg IV every 6 hours, DuoNeb treatments every 4 hours scheduled and as needed, azithromycin 250 mg daily, Pulmicort 1 mg twice daily, Perforomist twice daily, theophylline 300 mg at bedtime. Pulmonary consult appresicated. Chest x-ray and CTA as above. Covid 19 testing repeated. 2. COPD desperation With worsening symptoms, continue patient on IV steroid, continue DuoNeb along with Pulmicort. 3. Severe purulent tracheal bronchitis: Continue patient on antibiotic she received 1 dose of Rocephin, continue azithromycin 250 mg a day. 4. Advance breast cancer with lung metastasis: Still seen oncology still on immune oh therapy. 5. hypertension: Patient has been on amlodipine 10 mg a day continue medication. 6. Recurrent depression: Continue patient on Abilify total of 2 mg twice a day along with lorazepam and Effexor. 7. Hyperglycemia: Accu-Chek with sliding scales coverage and be done. 8. GI prophylaxis: Patient will be on pantoprazole 40 mg daily. 9. DVT prophylaxis: Patient will be on heparin subcutaneous.. 10. CODE STATUS: No code. 11. COVID-19 testing were negative. DISCHARGE PLAN Home Impression and plan of care have been directed as dictated by the signing physician. Arleen Gamez nurse practitioner acting as scribe for signing physician. Objective - Vital Signs Vital signs: Vital Signs Temp 98.5 F 07/03/21 08:00 Pulse 100 07/03/21 09:42 Resp 30 H 07/03/21 09:00 BP 148/94 07/03/21 08:00 Pulse Ox 91 L 07/03/21 09:13 Intake & Output 07/02/21 07/03/21 07/03/21 18:59 06:59 18:59 Intake Total 472 Balance 472 Intake: Oral 472 Other: # Voids 2 4 # Bowel Movements 0 - Labs CBC & Chem 7: 06/30/21 13:02 07/02/21 11:57 Labs: Abnormal Lab Results - Last 24 Hours (Table) 07/02/21 07/02/21 07/02/21 Range/Units 11:57 16:26 21:30 ABG pH (7.35-7.45) ABG pCO2 (35-45) mmHg ABG pO2 (83-108) mmHg ABG O2 Saturation (94-97) % Chloride 95 L (98-107) mmol/L Carbon Dioxide 35 H (22-30) mmol/L BUN 18 H (7-17) mg/dL Glucose 180 H (74-99) mg/dL POC Glucose (mg/dL) 236 H 137 H (75-99) mg/dL 07/03/21 07/03/21 07/03/21 Range/Units 00:14 00:23 07:00 ABG pH 7.06 L* (7.35-7.45) ABG pCO2 >120 H* (35-45) mmHg ABG pO2 288 H (83-108) mmHg ABG O2 Saturation 99.2 H (94-97) % Chloride (98-107) mmol/L Carbon Dioxide (22-30) mmol/L BUN (7-17) mg/dL Glucose (74-99) mg/dL POC Glucose (mg/dL) 201 H 174 H (75-99) mg/dL 07/03/21 Range/Units 11:24 ABG pH (7.35-7.45) ABG pCO2 (35-45) mmHg ABG pO2 (83-108) mmHg ABG O2 Saturation (94-97) % Chloride (98-107) mmol/L Carbon Dioxide (22-30) mmol/L BUN (7-17) mg/dL Glucose (74-99) mg/dL POC Glucose (mg/dL) 219 H (75-99) mg/dL
[2021-07-03 16:36] LABS: Glucose,Whole Blood 131 mg/dL (75-99)
[2021-07-03 16:47] LABS: Allen Test Performed? Yes
[2021-07-03 16:48] LABS: ABG Base Excess 21.6 mmol/L; ABG PH 7.32 (7.35-7.45); ABG PO2 191 mmHg (83-108); ABG TCO2 51 mmol/L (19-24)
[2021-07-03 17:03] LABS: ABG HCO3 48 mmol/L (21-25); ABG Oxygen Saturation 99.4 % (94-97); ABG PCO2 94 mmHg (35-45)
[2021-07-03 20:50] LABS: Glucose,Whole Blood 176 mg/dL (75-99)
[2021-07-03] MEDS: LORazepam 0.5 MG TAB PO PRN (20:54)
[2021-07-03] MEDS: THEOPHYLLINE 24 HOUR 300 MG CAP.ER.24H PO SCH (20:54)
[2021-07-04] MEDS: methylPREDNISolone SOD SUCCI 125 MG/2 ML VIAL IV SCH ×5 (00:26→23:23)
[2021-07-04] MEDS: IPRATROPIUM-ALBUTEROL 3 ML NEB INHALATION SCH ×6 (02:05→21:32)
[2021-07-04 06:57] LABS: Glucose,Whole Blood 177 mg/dL (75-99)
[2021-07-04] MEDS: FORMOTEROL FUMARATE 20 MCG/2 ML NEBU INHALATION SCH ×2 (08:01→21:31)
[2021-07-04] MEDS: BUDESONIDE 1 MG/2 ML NEBU INHALATION SCH ×2 (08:01→21:31)
[2021-07-04] MEDS: INSULIN ASPART (NovoLOG) 100 UNIT/ML VIAL SQ SCH ×4 (08:03→21:50)
[2021-07-04] MEDS: AZITHROMYCIN 250 MG TAB PO SCH (08:03)
[2021-07-04] MEDS: ENOXAPARIN 40 MG/0.4 ML SYRINGE SQ SCH (08:03)
[2021-07-04] MEDS: PANTOPRAZOLE 40 MG TABLET PO SCH (08:04)
[2021-07-04] MEDS: ARIPiprazole 2 MG TAB PO SCH ×3 (08:04→21:49)
[2021-07-04] MEDS: amLODIPine 10 MG TAB PO SCH (08:04)
[2021-07-04] MEDS: VENLAFAXINE HCL ER 150 MG CAP PO SCH (08:04)
[2021-07-04 09:12] LABS: HCT 38.4 % (37.2-46.3); HGB 11.5 g/dL (12.0-15.0); MCH 32.2 pg (27.0-32.0); MCHC 29.9 g/dL (32.0-37.0); MCV 107.6 fL (80.0-97.0); Mean Platelet Volume 8.9 fL (9.5-12.2); Platelet Count 399 X 10*3/uL (140-440); RBC 3.57 X 10*6/uL (4.10-5.20); RDW 14.3 % (11.5-14.5); WBC 7.78 X 10*3/uL (4.50-10.00)
[2021-07-04 09:49] LABS: ALT 28 U/L (8-44); AST 35 U/L (13-35); African American GFR (CKD) 122.5 (60.0-200.0); Albumin 4.6 g/dL (3.8-4.9); Albumin/Globulin Ratio 1.92 (1.60-3.17); Alkaline Phosphatase 81 U/L (41-126); BUN/Creat Ratio 42.91 Ratio (12.00-20.00); Blood Urea Nitrogen 22.1 mg/dL (9.0-27.0); Calcium 8.9 mg/dL (8.7-10.3); Carbon Dioxide 37.7 mmol/L (21.6-31.8); Chloride 92 mmol/L (96-109); Globulin 2.4 g/dL (1.6-3.3); Glucose 165 mg/dL (70-110); Non-African American GFR(CKD) 105.7 (60.0-200.0); Potassium 4.4 mmol/L (3.5-5.5); Sodium 143 mmol/L (135-145); Total Bilirubin <0.20 mg/dL (0.30-1.20); Total Protein 6.9 g/dL (6.2-8.2)
[2021-07-04 11:49] LABS: Glucose,Whole Blood 187 mg/dL (75-99)
--- NOTE | 2021-07-04 14:07 | P.PN ---
Subjective Progress Note Date: 07/04/21 Principal diagnosis: COPD exacerbation This is a 57-year-old white female patient with past medical history of severe COPD, stage IV metastatic breast cancer most recently patient was on Ibrance and Foslodex ( last treatment was on June 26, 2021) patient follows at the [facility] for her breast cancer care, with previous radiation therapy, hypertension, hyperlipidemia, depression, anxiety. Patient is status post bilateral mastectomy and oophorectomy at the [facility]. Patient presented to the emergency department on 06/30/2021 for evaluation of increased cough, and dyspnea and this has been going on since Tuesday. She went to see Dr. Azevedo in the office and was given a steroid injection, she has not improved, she denies any fever or chills, she has been vaccinated against coronavirus. Her cough is mostly nonproductive, no complaints of central chest pain, swelling or pain. Her chest x-ray shows COPD with right perihilar chronic atelectasis or scarring, based on comparison to previous images. COVID-19 PCR was negative, lab work was reviewed, white blood cell count was normal at 4.3, hemoglobin was 12.12, correlation profile was within normal limits, sodium is 134, potassium is 4.3, chloride is 93, CO2 32, BUN is 9, creatinine 0.49, LFTs were within normal limits. Patient was started on empiric antibiotics, IV steroids and bron chodilators, and we were asked to see the patient consultation. This morning she seen resting on a gurney in the emergency department, she is awaiting a bed on the medical surgical unit, vital signs are stable, she is in sinus mechanism with a rate of 107, pulse ox is 91% on 4 L, patient usually wears 2 L on a regular basis. On 07/02/2021 patient seen in follow-up on the medical surgical floor, patient thinks that her breathing is worse today, she is very tight bronchospastic very short of breath, she is on 4 L of oxygen pulse ox of 92-94%. Afebrile, hemodynamically she is stable, she is on IV Solu-Medrol 60 mg every 8 hours, she is on Pulmicort and Perforomist, is on antibiotics. She's had no fever or chills, she tested negative for COVID-19. Repeat chest x-ray was obtained showing persistent thickening within the periphery of the right lung, small right pleural effusion. Her pro-calcitonin was negative on admission is 0.09, blood cell count is normal at 4.3, hemoglobin was 12.2, was no evidence of fluid overload. He is bringing up some yellowish colored sputum, she is on gladys thromycin for antibiotic coverage. No swelling in lower extremities. She is receiving when necessary Ativan for anxiety. On today's evaluation on 07/03/2021 patient is seen in follow-up. Overnight her breathing continued to worsen, patient was quite bronchospastic last night, with labored breathing, and did become less responsive. Rapid response team was called, blood gas was obtained showing pO2 of 288, pCO2 of greater than 120, pH of 7.06. Patient was placed on BiPAP support with pressures of 12 and 5 and FiO2 of 100%, FiO2 has since been dropped down to 40%. This morning she remains on BiPAP support, she started to wake up, to provide some basic answers, although is she still very dyspneic to talk in sentences. Sounds are positive for diffuse wheezes. Yesterday's chest x-ray noted a persistent density within the periphery of the right midlung, with a consideration for atelectasis. Underlying mass could not be completely excluded. CTA chest was obtained last night going no evidence of pulmonary embolism, spinal or hilar adenopathy by CT criteria, lung windows were clear. Vision is maximized on medical treatment, she remains on IV Solu-Medrol 60 mg every 6 hours, azithromycin, Pulmicort, Perforomist, DuoNeb, yesterday we added aspirin 300 mg at bedtime. Her pro calc itonin level was negative this admission 0.09, COVID-19 PCR was negative, yesterday's blood work was fairly unremarkable, d-dimer was -0.56. The patient is seen today 07/04/2021 in follow-up on the regular medical floor. She is sitting up in bed. Currently on BiPAP 12/6 and 50% FiO2 to maintain O2 saturations in the 90s. Arterial blood gases yesterday afternoon and 100% FiO2 revealed a pO2 of 191, pCO2 of 94 and a pH of 7.32. She is breathing a bit easier today compared to yesterday. White count 7.7. Hemoglobin 11.5. Sodium 143. Potassium 4.4. Creatinine 0.5. Glucose 165. She remains on DuoNeb inhalations, Pulmicort and Perforomist inhalations, IV Solu-Medrol, theophylline. Objective - Vital Signs Vital signs: Vital Signs Temp 97.5 F L 07/04/21 08:00 Pulse 113 H 07/04/21 12:35 Resp 24 07/04/21 08:00 BP 154/93 07/04/21 08:00 Pulse Ox 90 L 07/04/21 08:00 Intake & Output 07/03/21 07/04/21 07/04/21 18:59 06:59 18:59 Output Total 400 450 Balance -400 -450 Output: Urine 400 450 Other: # Voids 4 # Bowel Movements 0 0 - Exam GENERAL EXAM: Awake alert, mildly dyspneic , 60-year-old white female, BiPAP support with pressures of 12 and 6 and FiO2 of 50%, less short of breath today compared to yesterday HEAD: Normocephalic/atraumatic. EYES: Normal reaction of pupils, equal size. Conjunctiva pink, sclera white. NOSE: Clear with pink turbinates. THROAT: No erythema or exudates. NECK: No masses, no JVD, no thyroid enlargement, no adenopathy. CHEST: No chest wall deformity. Symmetrical expansion. LUNGS: Diminished breath sounds bilaterally diffuse wheezes CVS: Regular rate and rhythm, normal S1 and S2, no gallops, no murmurs, no rubs ABDOMEN: Soft, nontender. No hepatosplenomegaly, normal bowel sounds, no guarding or rigidity. EXTREMITIES: No clubbing, no edema, no cyanosis, 2+ pulses and upper and lower extremities. MUSCULOSKELETAL: Muscle strength and tone normal. SPINE: No scoliosis or deformity SKIN: No rashes CENTRAL NERVOUS SYSTEM: No focal deficits, tone is normal in all 4 extremities. PSYCHIATRIC: Alert and oriented -3. Appropriate affect. Intact judgment and insight. - Labs CBC & Chem 7: 07/04/21 05:36 07/04/21 05:36 Labs: Abnormal Lab Results - Last 24 Hours (Table) 07/03/21 07/03/21 07/03/21 Range/Units 16:35 16:43 20:48 RBC (4.10-5.20) X 10*6/uL Hgb (12.0-15.0) g/dL MCV (80.0-97.0) fL MCH (27.0-32.0) pg MCHC (32.0-37.0) g/dL MPV (9.5-12.2) fL ABG pH 7.32 L (7.35-7.45) ABG pCO2 94 H* (35-45) mmHg ABG pO2 191 H (83-108) mmHg ABG HCO3 48 H* (21-25) mmol/L ABG Total CO2 51 H (19-24) mmol/L ABG O2 Saturation 99.4 H (94-97) % Chloride (96-109) mmol/L Carbon Dioxide (21.6-31.8) mmol/L Anion Gap (4.00-12.00) mmol/L Creatinine (0.6-1.5) mg/dL BUN/Creatinine Ratio (12.00-20.00) Ratio Glucose (70-110) mg/dL POC Glucose (mg/dL) 131 H 176 H (75-99) mg/dL Total Bilirubin (0.30-1.20) mg/dL 07/04/21 07/04/21 07/04/21 Range/Units 05:36 05:36 06:56 RBC 3.57 L (4.10-5.20) X 10*6/uL Hgb 11.5 L (12.0-15.0) g/dL MCV 107.6 H (80.0-97.0) fL MCH 32.2 H (27.0-32.0) pg MCHC 29.9 L (32.0-37.0) g/dL MPV 8.9 L (9.5-12.2) fL ABG pH (7.35-7.45) ABG pCO2 (35-45) mmHg ABG pO2 (83-108) mmHg ABG HCO3 (21-25) mmol/L ABG Total CO2 (19-24) mmol/L ABG O2 Saturation (94-97) % Chloride 92 L (96-109) mmol/L Carbon Dioxide 37.7 H (21.6-31.8) mmol/L Anion Gap 13.40 H (4.00-12.00) mmol/L Creatinine 0.5 L (0.6-1.5) mg/dL BUN/Creatinine Ratio 42.91 H (12.00-20.00) Ratio Glucose 165 H (70-110) mg/dL POC Glucose (mg/dL) 177 H (75-99) mg/dL Total Bilirubin <0.20 L (0.30-1.20) mg/dL 07/04/21 Range/Units 11:47 RBC (4.10-5.20) X 10*6/uL Hgb (12.0-15.0) g/dL MCV (80.0-97.0) fL MCH (27.0-32.0) pg MCHC (32.0-37.0) g/dL MPV (9.5-12.2) fL ABG pH (7.35-7.45) ABG pCO2 (35-45) mmHg ABG pO2 (83-108) mmHg ABG HCO3 (21-25) mmol/L ABG Total CO2 (19-24) mmol/L ABG O2 Saturation (94-97) % Chloride (96-109) mmol/L Carbon Dioxide (21.6-31.8) mmol/L Anion Gap (4.00-12.00) mmol/L Creatinine (0.6-1.5) mg/dL BUN/Creatinine Ratio (12.00-20.00) Ratio Glucose (70-110) mg/dL POC Glucose (mg/dL) 187 H (75-99) mg/dL Total Bilirubin (0.30-1.20) mg/dL Assessment and Plan Assessment: 1 Acute exacerbation of chronic obstructive pulmonary disease, no evidence of acute pulmonary process on the chest x-ray, COVID 19 PCR was negative, patient is status post completed COVID-19 vaccination. 2 Stage IV metastatic breast cancer, status post bilateral mastectomy and oophorectomy, patient follows at the [facility] for her cancer care, she is currently on Ibrance and Foslodex, last treatment was 06/26/2021 3 History of COPD, on home oxygen, usually wears 2 L on a regular basis, baseline FEV1 is 37% of predicted 4 History of chronic tobacco dependence 5 Hypertension 6 Depression 7 History of Alysha syndrome 8 Acute on chronic hypercapnic respiratory failure related to acute exac erbation of COPD, chest x-ray showed right midlung density, with possibility of atelectasis, CTA chest showed no evidence of pulmonary embolism, lung windows were clear, no mediastinal or hilar adenopathy. She was placed on BiPAP support on which she remains with pressures of 12 and 6 and FiO2 of 50% Plan: The patient was seen and evaluated by Dr. Mock Slightly improved today compared to yesterday FiO2 decreased to 45% Continue to titrate as tolerated Continue the current treatment plan We will continue to follow I, the cosigning physician, performed a history & physical examination of the patient. Lungs sounds with bilateral adnexa tarry wheeze, diminished. Maintaini ng good O2 saturations in the 90s on BiPAP 12/6 and 45% FiO2. I discussed the assessment and plan of care with my nurse practitioner, Dagmar Mixon. I attest to the above note as dictated by her.
[2021-07-04 16:44] LABS: Glucose,Whole Blood 107 mg/dL (75-99)
--- NOTE | 2021-07-04 17:19 | P.PN ---
Subjective Progress Note Date: 07/04/21 HISTORY OF PRESENT ILLNESS 60-year-old female one of Dr. 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 Also patient had abdominal uterine and fallopian metastasis from breast cancer with total hysterectomy. Patient had respiratory failure on and off in the past has been on home O2 she was hospitalized at [facility] over a month ago for COPD excessive patient was treated and done well. Patient developed to have much worsening shortness of breath cough wheezes try outpatient management not successful ended up seen Dr. Eugenio womack and had apparently steroid injection along with antibiotics which did not help ended up in the emergency department at [facility] in the afternoon on 06/30/2021. At the time was seen she was quite hypoxic was having inspiratory expiratory wheezes and significant worsening symptoms. Her COVID-19 by PCR was negative chest x-ray showed COPD with right perihilar and chronic atelectasis with scar tissue. She was diagnosed with COPD excessive patient with severe bronchitis started on IV antibiotic along with IV steroids and bronchodilator pulse ox remained to be low require 4 L of O2 to keep pulse ox above 90 percentile. She was hospitalized with above problem. 07/01: Patient is seen today in the emergency center waiting for a [facility] bed. She has been started on IV Solu-Medrol and NovoLog scale will be added. IV fluids will be discontinued. She has been seen by Dr. Saldivar and Pulmicort and Perforomist added. Patient states that she is feeling much better breathing status is improved from yesterday most likely secondary to steroids. She has been afebrile, heart rate 103, blood pressure 124/90, pulse ox 94% on 3 L nasal cannula. Patient voices that she wishes to BE a no code. 07/02: Complaints of worsening shortness of breath this morning. She did have a good evening and did not take evening nebulizer treatment. She has increased shortness of breath the pulse ox is 92% on 4 L nasal cannula but patient states that her breathing is not good this morning. D-dimer ordered as well as chest x-ray and Ativan were ordered by home medicine. Patient verbalizes that she does not want to go on BiPAP. She remains on Solu-Medrol 60 mg IV every 6 hours 07/03: A-Team was called this morning at midnight this patient was found unresponsive with agonal breathing. Patient was placed on BiPAP and woke up shortly after. Pulmonary medicine has added and theophylline, continue Solu- Medrol 60 mg IV every 6 hours, nebulizers, Pulmicort, Perforomist. Chest x-ray from yesterday afternoon revealed persistent thickening within the periphery of the right mid lung currently measuring 1 cm in thickness which is increased from 2019. CT chest is recommended. Neoplasm is not excluded. CT angiogram of the chest revealed no acute pulmonary embolism. Patient has been afebrile, heart rate 100, blood pressure 145/88, respiratory rate 30, pulse ox 88% on BiPAP. Repeat Covid 19 testing ordered. 07/04: Patient currently is on BiPAP chain, for hypercapnic failure, hasn't had any regular meals, she is requesting to restart back her Ativan as she is panicking with the BiPAP in her face. She has no lightheadedness dizziness, has poor sleep, diminished appetite, she is known to have stage IV metastatic breast cancer, with last treatment in June 2021, using a ibrance and folslodex REVIEW OF SYSTEMS Constitutional: No fever, no chills, no night sweats. No weight change. No weakness, fatigue or lethargy. No daytime sleepiness. EENT: No headache. No blurred vision or double vision, no loss of vision. No loss of Hearing, no ringing in the ears, no dizziness. Significant congestion with no epistaxis no sore throat. Lungs: Positive shortness of breath cough wheezes. Worsening shortness of breath at rest. Cardiovascular: No chest pain, no lower extremity edema. No palpitations. No paroxysmal nocturnal dyspnea. No orthopnea. No lightheadedness or dizziness. No syncopal episodes. Abdominal: No abdominal pain. No nausea, vomiting. No diarrhea. No constipation. No bloody or tarry stools.. No loss of appetite. Genitourinary: No dysuria, increased frequency, urgency. No urinary retention. Musculoskeletal: No myalgias. No muscle weakness, no gait dysfunction, no frequent falls. No back pain. No neck pain. Integumentary: No wounds, no lesions. No rash or pruritus. No unusual bruising. No change in hair or nails. Neurologic: No aphasia. No facial droop. No change in mentation. No head injury. No headache. No paralysis. No paresthesia. Psychiatric: No depression. No anxiety. No mood swings. Endocrine: No abnormal blood sugars. Objective - Vital Signs Vital signs: Vital Signs Temp 97.5 F L 07/04/21 08:00 Pulse 113 H 07/04/21 12:35 Resp 24 07/04/21 08:00 BP 154/93 07/04/21 08:00 Pulse Ox 90 L 07/04/21 08:00 Intake & Output 07/03/21 07/04/21 07/04/21 18:59 06:59 18:59 Output Total 400 450 Balance -400 -450 Output: Urine 400 450 Other: # Voids 4 # Bowel Movements 0 0 - Constitutional General appearance: Present: cooperative, no acute distress - EENT Eyes: Present: EOMI, PERRLA, dentition normal ENT: Present: NA/AT, normal oropharynx - Neck Neck: Present: normal ROM - Respiratory Respiratory: bilateral: prolonged expiration, negative: CTA, diminished, dullness, rales, rhonchi - Cardiovascular Rhythm: regular - Integumentary Integumentary: Present: normal - Neurologic Neurologic: Present: CNII-XII intact - Psychiatric Psychiatric: Present: A&O x's 3 - Labs CBC & Chem 7: 07/04/21 05:36 07/04/21 05:36 Labs: Abnormal Lab Results - Last 24 Hours (Table) 07/03/21 07/03/21 07/03/21 Range/Units 16:35 16:43 20:48 RBC (4.10-5.20) X 10*6/uL Hgb (12.0-15.0) g/dL MCV (80.0-97.0) fL MCH (27.0-32.0) pg MCHC (32.0-37.0) g/dL MPV (9.5-12.2) fL ABG pH 7.32 L (7.35-7.45) ABG pCO2 94 H* (35-45) mmHg ABG pO2 191 H (83-108) mmHg ABG HCO3 48 H* (21-25) mmol/L ABG Total CO2 51 H (19-24) mmol/L ABG O2 Saturation 99.4 H (94-97) % Chloride (96-109) mmol/L Carbon Dioxide (21.6-31.8) mmol/L Anion Gap (4.00-12.00) mmol/L Creatinine (0.6-1.5) mg/dL BUN/Creatinine Ratio (12.00-20.00) Ratio Glucose (70-110) mg/dL POC Glucose (mg/dL) 131 H 176 H (75-99) mg/dL Total Bilirubin (0.30-1.20) mg/dL 07/04/21 07/04/21 07/04/21 Range/Units 05:36 05:36 06:56 RBC 3.57 L (4.10-5.20) X 10*6/uL Hgb 11.5 L (12.0-15.0) g/dL MCV 107.6 H (80.0-97.0) fL MCH 32.2 H (27.0-32.0) pg MCHC 29.9 L (32.0-37.0) g/dL MPV 8.9 L (9.5-12.2) fL ABG pH (7.35-7.45) ABG pCO2 (35-45) mmHg ABG pO2 (83-108) mmHg ABG HCO3 (21-25) mmol/L ABG Total CO2 (19-24) mmol/L ABG O2 Saturation (94-97) % Chloride 92 L (96-109) mmol/L Carbon Dioxide 37.7 H (21.6-31.8) mmol/L Anion Gap 13.40 H (4.00-12.00) mmol/L Creatinine 0.5 L (0.6-1.5) mg/dL BUN/Creatinine Ratio 42.91 H (12.00-20.00) Ratio Glucose 165 H (70-110) mg/dL POC Glucose (mg/dL) 177 H (75-99) mg/dL Total Bilirubin <0.20 L (0.30-1.20) mg/dL 07/04/21 Range/Units 11:47 RBC (4.10-5.20) X 10*6/uL Hgb (12.0-15.0) g/dL MCV (80.0-97.0) fL MCH (27.0-32.0) pg MCHC (32.0-37.0) g/dL MPV (9.5-12.2) fL ABG pH (7.35-7.45) ABG pCO2 (35-45) mmHg ABG pO2 (83-108) mmHg ABG HCO3 (21-25) mmol/L ABG Total CO2 (19-24) mmol/L ABG O2 Saturation (94-97) % Chloride (96-109) mmol/L Carbon Dioxide (21.6-31.8) mmol/L Anion Gap (4.00-12.00) mmol/L Creatinine (0.6-1.5) mg/dL BUN/Creatinine Ratio (12.00-20.00) Ratio Glucose (70-110) mg/dL POC Glucose (mg/dL) 187 H (75-99) mg/dL Total Bilirubin (0.30-1.20) mg/dL Assessment and Plan Plan: ASSESSMENT AND PLAN 1. Acute respiratory failure: Combination of COPD exacerbation or never get an along with severe bronchitis. Continue O2 on BiPAP, Solu-Medrol 60 mg IV every 6 hours, DuoNeb treatments every 4 hours scheduled and as needed, azithromycin 250 mg daily, Pulmicort 1 mg twice daily, Perforomist twice daily, theophylline 300 mg at bedtime. Pulmonary consult appresicated. Chest x-ray and CTA as above. Covid 19 testing repeated. 2. COPD desperation With worsening symptoms, continue patient on IV steroid, continue DuoNeb along with Pulmicort. 3. Severe purulent tracheal bronchitis: Continue patient on antibiotic she received 1 dose of Rocephin, continue azithromycin 250 mg a day. 4. Advance breast cancer with lung metastasis: Still seen oncology still on immune oh therapy. 5. hypertension: Patient has been on amlodipine 10 mg a day continue medication. 6. Recurrent depression: Continue patient on Abilify total of 2 mg twice a day along with lorazepam and Effexor. 7. Hyperglycemia: Accu-Chek with sliding scales coverage and be done. 8. GI prophylaxis: Patient will be on pantoprazole 40 mg daily. 9. DVT prophylaxis: Patient will be on heparin subcutaneous.. 10. CODE STATUS: No code. 11. COVID-19 testing were negative. DISCHARGE PLAN Home
[2021-07-04 21:47] LABS: Glucose,Whole Blood 285 mg/dL (75-99)
[2021-07-04] MEDS: THEOPHYLLINE 24 HOUR 300 MG CAP.ER.24H PO SCH (21:48)
[2021-07-04] MEDS: LORazepam 0.5 MG TAB PO PRN (21:49)
[2021-07-05] MEDS: IPRATROPIUM-ALBUTEROL 3 ML NEB INHALATION SCH ×6 (00:27→19:16)
[2021-07-05] MEDS: methylPREDNISolone SOD SUCCI 125 MG/2 ML VIAL IV SCH ×4 (05:27→23:42)
[2021-07-05 06:58] LABS: Glucose,Whole Blood 188 mg/dL (75-99)
[2021-07-05] MEDS: FORMOTEROL FUMARATE 20 MCG/2 ML NEBU INHALATION SCH ×2 (07:17→19:16)
[2021-07-05] MEDS: BUDESONIDE 1 MG/2 ML NEBU INHALATION SCH ×2 (07:18→19:17)
[2021-07-05] MEDS: ENOXAPARIN 40 MG/0.4 ML SYRINGE SQ SCH (07:50)
[2021-07-05] MEDS: INSULIN ASPART (NovoLOG) 100 UNIT/ML VIAL SQ SCH ×4 (07:50→20:48)
[2021-07-05] MEDS: AZITHROMYCIN 250 MG TAB PO SCH (07:50)
[2021-07-05] MEDS: PANTOPRAZOLE 40 MG TABLET PO SCH (07:50)
[2021-07-05] MEDS: VENLAFAXINE HCL ER 150 MG CAP PO SCH (07:50)
[2021-07-05] MEDS: amLODIPine 10 MG TAB PO SCH (07:50)
[2021-07-05] MEDS: ARIPiprazole 2 MG TAB PO SCH ×2 (07:50→20:48)
[2021-07-05] MEDS: LORazepam 0.5 MG TAB PO PRN ×3 (08:14→23:42)
[2021-07-05 11:38] LABS: Glucose,Whole Blood 216 mg/dL (75-99)
--- NOTE | 2021-07-05 13:22 | P.PN ---
Subjective Progress Note Date: 07/05/21 HISTORY OF PRESENT ILLNESS 60-year-old female one of Dr. 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 Also patient had abdominal uterine and fallopian metastasis from breast cancer with total hysterectomy. Patient had respiratory failure on and off in the past has been on home O2 she was hospitalized at [facility] over a month ago for COPD excessive patient was treated and done well. Patient developed to have much worsening shortness of breath cough wheezes try outpatient management not successful ended up seen Dr. Eugenio womack and had apparently steroid injection along with antibiotics which did not help ended up in the emergency department at [facility] in the afternoon on 06/30/2021. At the time was seen she was quite hypoxic was having inspiratory expiratory wheezes and significant worsening symptoms. Her COVID-19 by PCR was negative chest x-ray showed COPD with right perihilar and chronic atelectasis with scar tissue. She was diagnosed with COPD excessive patient with severe bronchitis started on IV antibiotic along with IV steroids and bronchodilator pulse ox remained to be low require 4 L of O2 to keep pulse ox above 90 percentile. She was hospitalized with above problem. 07/01: Patient is seen today in the emergency center waiting for a [facility] bed. She has been started on IV Solu-Medrol and NovoLog scale will be added. IV fluids will be discontinued. She has been seen by Dr. Saldivar and Pulmicort and Perforomist added. Patient states that she is feeling much better breathing status is improved from yesterday most likely secondary to steroids. She has been afebrile, heart rate 103, blood pressure 124/90, pulse ox 94% on 3 L nasal cannula. Patient voices that she wishes to BE a no code. 07/02: Complaints of worsening shortness of breath this morning. She did have a good evening and did not take evening nebulizer treatment. She has increased shortness of breath the pulse ox is 92% on 4 L nasal cannula but patient states that her breathing is not good this morning. D-dimer ordered as well as chest x-ray and Ativan were ordered by home medicine. Patient verbalizes that she does not want to go on BiPAP. She remains on Solu-Medrol 60 mg IV every 6 hours 07/03: A-Team was called this morning at midnight this patient was found unresponsive with agonal breathing. Patient was placed on BiPAP and woke up shortly after. Pulmonary medicine has added and theophylline, continue Solu- Medrol 60 mg IV every 6 hours, nebulizers, Pulmicort, Perforomist. Chest x-ray from yesterday afternoon revealed persistent thickening within the periphery of the right mid lung currently measuring 1 cm in thickness which is increased from 2019. CT chest is recommended. Neoplasm is not excluded. CT angiogram of the chest revealed no acute pulmonary embolism. Patient has been afebrile, heart rate 100, blood pressure 145/88, respiratory rate 30, pulse ox 88% on BiPAP. Repeat Covid 19 testing ordered. 07/04: Patient currently is on BiPAP chain, for hypercapnic failure, hasn't had any regular meals, she is requesting to restart back her Ativan as she is panicking with the BiPAP in her face. She has no lightheadedness dizziness, has poor sleep, diminished appetite, she is known to have stage IV metastatic breast cancer, with last treatment in June 2021, using a ibrance and folslodex 17: Patient is on BiPAP, complaining of dry eye, still not sleeping at night, has daughter at bedside, updated regarding treatment plan, echocardiogram is requested to eval for pulmonary hypertension, vitals are stable, melatonin added on top of when necessary Ativan REVIEW OF SYSTEMS C melatonin added on top of when necessary Ativanonstitutional: No fever, no chills, no night sweats. No weight change. No weakness, fatigue or lethargy. No daytime sleepiness. EENT: No headache. No blurred vision or double vision, no loss of vision. No loss of Hearing, no ringing in the ears, no dizziness. Significant congestion with no epistaxis no sore throat. Lungs: Positive shortness of breath cough wheezes. Worsening shortness of breath at rest. Cardiovascular: No chest pain, no lower extremity edema. No palpitations. No paroxysmal nocturnal dyspnea. No orthopnea. No lightheadedness or dizziness. No syncopal episodes. Abdominal: No abdominal pain. No nausea, vomiting. No diarrhea. No constipation. No bloody or tarry stools.. No loss of appetite. Genitourinary: No dysuria, increased frequency, urgency. No urinary retention. Musculoskeletal: No myalgias. No muscle weakness, no gait dysfunction, no frequent falls. No back pain. No neck pain. Integumentary: No wounds, no lesions. No rash or pruritus. No unusual bru ising. No change in hair or nails. Neurologic: No aphasia. No facial droop. No change in mentation. No head injury. No headache. No paralysis. No paresthesia. Psychiatric: No depression. No anxiety. No mood swings. Endocrine: No abnormal blood sugars. Objective - Vital Signs Vital signs: Vital Signs Temp 98.4 F 07/05/21 08:00 Pulse 116 H 07/05/21 11:50 Resp 22 07/05/21 08:00 BP 156/96 07/05/21 08:00 Pulse Ox 91 L 07/05/21 08:00 Intake & Output 07/04/21 07/05/21 07/05/21 18:59 06:59 18:59 Intake Total 1080 Output Total 1000 Balance 1080 -1000 Intake: Oral 1080 Output: Urine 1000 Other: Voiding Method External Catheter # Voids 3 - Constitutional General appearance: Present: cooperative, mild distress - EENT Eyes: Present: PERRLA ENT: Present: normal oropharynx - Neck Neck: Present: normal ROM - Respiratory Respiratory: bilateral: wheezing, negative: prolonged expiration - Cardiovascular Rhythm: regular Abnormal Heart Sounds: Absent: systolic murmur, diastolic murmur, rub, S3 Gallop , S4 Gallop, click, other - Gastrointestinal General gastrointestinal: Present: normal bowel sounds, soft - Neurologic Neurologic: Present: CNII-XII intact - Musculoskeletal Musculoskeletal: Present: gait normal - Labs CBC & Chem 7: 07/04/21 05:36 07/04/21 05:36 Labs: Abnormal Lab Results - Last 24 Hours (Table) 07/04/21 07/04/21 07/05/21 Range/Units 16:42 21:45 06:56 POC Glucose (mg/dL) 107 H 285 H 188 H (75-99) mg/dL 07/05/21 Range/Units 11:37 POC Glucose (mg/dL) 216 H (75-99) mg/dL Assessment and Plan Plan: ASSESSMENT AND PLAN 1. Acute respiratory failure: Combination of COPD exacerbation or never get an along with severe bronchitis. Continue O2 on BiPAP, Solu-Medrol 60 mg IV every 6 hours, DuoNeb treatments every 4 hours scheduled and as needed, azithromycin 250 mg daily, Pulmicort 1 mg twice daily, Perforomist twice daily, theophylline 300 mg at bedtime. Pulmonary consult appresicated. Chest x-ray and CTA as above. Covid 19 testing repeated. 2. COPD desperation With worsening symptoms, continue patient on IV steroid, continue DuoNeb along with Pulmicort. 3. Severe purulent tracheal bronchitis: Continue patient on antibiotic she received 1 dose of Rocephin, continue azithromycin 250 mg a day. 4. Advance breast cancer with lung metastasis: Still seen oncology still on immune oh therapy. 5. hypertension: Patient has been on amlodipine 10 mg a day continue medication. 6. Recurrent depression: Continue patient on Abilify total of 2 mg twice a day along with lorazepam and Effexor. 7. Hyperglycemia: Accu-Chek with sliding scales coverage and be done. 8. GI prophylaxis: Patient will be on pantoprazole 40 mg daily. 9. DVT prophylaxis: Patient will be on heparin subcutaneous.. 10. CODE STATUS: No code. 11. COVID-19 testing were negative. DISCHARGE PLAN Home
--- NOTE | 2021-07-05 15:15 | P.PN ---
Subjective Progress Note Date: 07/05/21 Principal diagnosis: Acute exacerbation of COPD This is a 57-year-old white female patient with past medical history of severe COPD, stage IV metastatic breast cancer most recently patient was on Ibrance and Foslodex ( last treatment was on June 26, 2021) patient follows at the [facility] for her breast cancer care, with previous radiation therapy, hypertension, hyperlipidemia, depression, anxiety. Patient is status post bilateral mastectomy and oophorectomy at the [facility]. Patient presented to the emergency department on 06/30/2021 for evaluation of increased cough, and dyspnea and this has been going on since Tuesday. She went to see Dr. Azevedo in the office and was given a steroid injection, she has not improved, she denies any fever or chills, she has been vaccinated against coronavirus. Her cough is mostly nonproductive, no complaints of central chest pain, swelling or pain. Her chest x-ray shows COPD with right perihilar chronic atelectasis or scarring, based on comparison to previous images. COVID-19 PCR was negative, lab work was reviewed, white blood cell count was normal at 4.3, hemoglobin was 12.12, correlation profile was within normal limits, sodium is 134, potassium is 4.3, chloride is 93, CO2 32, BUN is 9, creatinine 0.49, LFTs were within normal limits. Patient was started on empiric antibiotics, IV steroids and bronchodilators, and we were asked to see the patient consultation. This morning she seen resting on a gurney in the emergency department, she is awaiting a bed on the medical surgical unit, vital signs are stable, she is in sinus mechanism with a rate of 107, pulse ox is 91% on 4 L, patient usually wears 2 L on a regular basis. On 07/02/2021 patient seen in follow-up on the medical surgical floor, patient thinks that her breathing is worse today, she is very tight bronchospastic very short of breath, she is on 4 L of oxygen pulse ox of 92-94%. Afebrile, hemodynamically she is stable, she is on IV Solu-Medrol 60 mg every 8 hours, she is on Pulmicort and Perforomist, is on antibiotics. She's had no fever or chills, she tested negative for COVID-19. Repeat chest x-ray was obtained showing persistent thickening within the periphery of the right lung, small right pleural effusion. Her pro-calcitonin was negative on admission is 0.09, blood cell count is normal at 4.3, hemoglobin was 12.2, was no evidence of fluid overload. He is bringing up some yellowish colored sputum, she is on azithromycin for antibiotic coverage. No swelling in lower extremities. She is receiving when necessary Ativan for anxiety. On today's evaluation on 07/03/2021 patient is seen in follow-up. Overnight her breathing continued to worsen, patient was quite bronchospastic last night, with labored breathing, and did become less responsive. Rapid response team was called, blood gas was obtained showing pO2 of 288, pCO2 of greater than 120, pH of 7.06. Patient was placed on BiPAP support with pressures of 12 and 5 and FiO2 of 100%, FiO2 has since been dropped down to 40%. This morning she remains on BiPAP support, she started to wake up, to provide some basic answers, although is she still very dyspneic to talk in sentences. Sounds are positive for diffuse wheezes. Yesterday's chest x-ray noted a persistent density within the periphery of the right midlung, with a consideration for atelectasis. Underlying mass could not be completely excluded. CTA chest was obtained last night going no evidence of pulmonary embolism, spinal or hilar adenopathy by CT criteria, lung windows were clear. Vision is maximized on medical treatment, she remains on IV Solu-Medrol 60 mg every 6 hours, azithromycin, Pulmicort, Perforomist, DuoNeb, yesterday we added aspirin 300 mg at bedtime. Her pro calcitonin level was negative this admission 0.09, COVID-19 PCR was negative, yesterday's blood work was fairly unremarkable, d-dimer was -0.56. On 07/05/2021 patient seen in follow-up on medical surgical floor. She remains on BiPAP support, she is of 12 and 6 and FiO2 of 50%, pulse ox is 89%, her follow up ABGs from yesterday was improving, with pH of 7.32, pCO2 of 94, and pO2 of 191, this was done 100% FiO2 which had since been dropped to 50%. Patient is currently maximized on medical treatment, she is on IV steroids with Solu-Medrol 60 g every 6 hours, she is on nebulized bronchodilators, She is on theophylline, she is on empiric antibiotics. Still very dyspneic, tight and wheezy. Not coughing any phlegm up. No chest pain. CT angiogram of chest showed no evidence of pulmonary embolism. Patient is very anxious as well, she's been getting as needed doses of Ativan. GI and DVT prophylaxis. overall much more awake, and responsive. Objective - Vital Signs Vital signs: Vital Signs Temp 98.4 F 07/05/21 08:00 Pulse 116 H 07/05/21 11:50 Resp 22 07/05/21 08:00 BP 156/96 07/05/21 08:00 Pulse Ox 91 L 07/05/21 08:00 Intake & Output 07/04/21 07/05/21 07/05/21 18:59 06:59 18:59 Intake Total 1080 Output Total 1000 Balance 1080 -1000 Intake: Oral 1080 Output: Urine 1000 Other: Voiding Method External Catheter # Voids 3 - Exam GENERAL EXAM: Awake and responsive, quite dyspneic , 60-year-old white female, BiPAP support with pressures of 12 and 5 and FiO2 of 50%, dyspneic, bronchospastic, using accessory muscles of breathing, desaturating, with a pulse ox of 81%, and FiO2 has been adjusted back up to 40%, and EPAP was increased to 6, and pulse ox is improving HEAD: Normocephalic/atraumatic. EYES: Normal reaction of pupils, equal size. Conjunctiva pink, sclera white. NOSE: Clear with pink turbinates. THROAT: No erythema or exudates. NECK: No masses, no JVD, no thyroid enlargement, no adenopathy. CHEST: No chest wall deformity. Symmetrical expansion. LUNGS: diminished breath sounds bilaterally diffuse wheezes CVS: Regular rate and rhythm, normal S1 and S2, no gallops, no murmurs, no rubs ABDOMEN: Soft, nontender. No hepatosplenomegaly, normal bowel sounds, no guarding or rigidity. EXTREMITIES: No clubbing, no edema, no cyanosis, 2+ pulses and upper and lower extremities. MUSCULOSKELETAL: Muscle strength and tone normal. SPINE: No scoliosis or deformity SKIN: No rashes CENTRAL NERVOUS SYSTEM: Alert and oriented -3. No focal deficits, tone is normal in all 4 extremities. PSYCHIATRIC: Alert and oriented -3. Appropriate affect. Intact judgment and insight. - Labs CBC & Chem 7: 07/04/21 05:36 07/04/21 05:36 Labs: Abnormal Lab Results - Last 24 Hours (Table) 07/04/21 07/04/21 07/05/21 Range/Units 16:42 21:45 06:56 POC Glucose (mg/dL) 107 H 285 H 188 H (75-99) mg/dL 07/05/21 Range/Units 11:37 POC Glucose (mg/dL) 216 H (75-99) mg/dL Assessment and Plan Plan: assessment: #1. Acute exacerbation of chronic obstructive pulmonary disease, no evidence of acute pulmonary process on the chest x-ray, COVID 19 PCR was negative, patient is status post completed COVID-19 vaccination. #2. Stage IV metastatic breast cancer, status post bilateral mastectomy and oophorectomy, patient follows at the [facility] for her cancer care, she is currently on Ibrance and Foslodex, last treatment was 06/26/2021 #3. History of COPD, on home oxygen, usually wears 2 L on a regular basis, baseline FEV1 is 37% of predicted #4. History of chronic tobacco dependence #5. Hypertension #6. Depression #7. History of Alysha syndrome #8. Acute on chronic hypoxic and hypercapnic respiratory failure related to acute exacerbation of COPD, chest x-ray showed right midlung density, with possibility of atelectasis, CTA chest showed no evidence of pulmonary embolism, lung windows were clear, no mediastinal or hilar adenopathy. She was placed on BiPAP support on which she remains with pressures of 12 and 5 and FiO2 of 50% Plan: Continue BiPAP support, likely with pressures of 12 and 5 and FiO2 of 50% Continue IV steroids, continue abiotic's, Continue nebulized bronchodilators Patient remains lightly, mentation is certainly improved, she is more awake, her last blood gas showed improvement in her ventilation status Still quite dyspneic and bronchospastic, BiPAP dependent We'll continue to closely follow Overall prognosis is extremely guarded code status is DO NOT RESUSCITATE, continue supportive medical treatments I performed a history & physical examination of the patient and discussed their management with my nurse practitioner, Mere Ruth. I reviewed the nurse practitioner's note and agree with the documented findings and plan of care. Lung sounds are positive for diffuse wheezes throughout the lung [place]. The findings and the impression was discussed with the patient. I attest to the documentation by the nurse practitioner. #4. Time with Patient: Less than 30
[2021-07-05] MEDS: ARTIFICIAL TEARS-HYPROMELLOSE DROPS 15 ML BTL BOTH EYES SCH ×2 (16:12→20:49)
[2021-07-05 16:32] LABS: Glucose,Whole Blood 151 mg/dL (75-99)
[2021-07-05 20:31] LABS: Glucose,Whole Blood 167 mg/dL (75-99)
[2021-07-05] MEDS: THEOPHYLLINE 24 HOUR 300 MG CAP.ER.24H PO SCH (20:48)
[2021-07-06] MEDS: IPRATROPIUM-ALBUTEROL 3 ML NEB INHALATION SCH ×7 (00:09→23:39)
[2021-07-06] MEDS: methylPREDNISolone SOD SUCCI 125 MG/2 ML VIAL IV SCH ×3 (05:15→18:00)
[2021-07-06 07:15] LABS: Glucose,Whole Blood 203 mg/dL (75-99)
[2021-07-06] MEDS: amLODIPine 10 MG TAB PO SCH (07:32)
[2021-07-06] MEDS: LORazepam 0.5 MG TAB PO PRN (07:33)
[2021-07-06] MEDS: ENOXAPARIN 40 MG/0.4 ML SYRINGE SQ SCH (07:33)
[2021-07-06] MEDS: PANTOPRAZOLE 40 MG TABLET PO SCH (07:33)
[2021-07-06] MEDS: VENLAFAXINE HCL ER 150 MG CAP PO SCH (07:33)
[2021-07-06] MEDS: ARIPiprazole 2 MG TAB PO SCH ×2 (07:34→21:38)
[2021-07-06] MEDS: INSULIN ASPART (NovoLOG) 100 UNIT/ML VIAL SQ SCH ×4 (07:34→21:47)
[2021-07-06] MEDS: FORMOTEROL FUMARATE 20 MCG/2 ML NEBU INHALATION SCH ×2 (07:59→21:09)
[2021-07-06] MEDS: BUDESONIDE 1 MG/2 ML NEBU INHALATION SCH ×2 (07:59→21:10)
[2021-07-06] MEDS: ARTIFICIAL TEARS-HYPROMELLOSE DROPS 15 ML BTL BOTH EYES SCH ×3 (10:11→21:39)
[2021-07-06 11:06] LABS: HCT 41.3 % (37.2-46.3); HGB 12.5 g/dL (12.0-15.0); MCH 32.1 pg (27.0-32.0); MCHC 30.3 g/dL (32.0-37.0); MCV 105.9 fL (80.0-97.0); Mean Platelet Volume 8.7 fL (9.5-12.2); Platelet Count 477 X 10*3/uL (140-440); RDW 13.8 % (11.5-14.5); WBC 7.16 X 10*3/uL (4.50-10.00)
[2021-07-06 11:32] LABS: Glucose,Whole Blood 192 mg/dL (75-99)
[2021-07-06] MEDS: cloNIDine 0.2 MG/24HR PATCH TRANSDERM SCH (11:44)
[2021-07-06 11:49] LABS: African American GFR (CKD) 127.4 (60.0-200.0); Albumin 4.6 g/dL (3.8-4.9); Albumin/Globulin Ratio 1.84 (1.60-3.17); BUN/Creat Ratio 36.76 Ratio (12.00-20.00); Blood Urea Nitrogen 16.8 mg/dL (9.0-27.0); Calcium 9.3 mg/dL (8.7-10.3); Carbon Dioxide 38.4 mmol/L (21.6-31.8); Globulin 2.5 g/dL (1.6-3.3); Non-African American GFR(CKD) 109.9 (60.0-200.0); Potassium 4.6 mmol/L (3.5-5.5); Total Bilirubin 0.3 mg/dL (0.30-1.20); Total Protein 7.1 g/dL (6.2-8.2)
--- NOTE | 2021-07-06 12:45 | P.PN ---
Subjective Progress Note Date: 07/06/21 Principal diagnosis: Acute exacerbation of COPD This is a 57-year-old white female patient with past medical history of severe COPD, stage IV metastatic breast cancer most recently patient was on Ibrance and Foslodex ( last treatment was on June 26, 2021) patient follows at the [facility] for her breast cancer care, with previous radiation therapy, hypertension, hyperlipidemia, depression, anxiety. Patient is status post bilateral mastectomy and oophorectomy at the [facility]. Patient presented to the emergency department on 06/30/2021 for evaluation of increased cough, and dyspnea and this has been going on since Tuesday. She went to see Dr. Azevedo in the office and was given a steroid injection, she has not improved, she denies any fever or chills, she has been vaccinated against coronavirus. Her cough is mostly nonproductive, no complaints of central chest pain, swelling or pain. Her chest x-ray shows COPD with right perihilar chronic atelectasis or scarring, based on comparison to previous images. COVID-19 PCR was negative, lab work was reviewed, white blood cell count was normal at 4.3, hemoglobin was 12.12, correlation profile was within normal limits, sodium is 134, potassium is 4.3, chloride is 93, CO2 32, BUN is 9, creatinine 0.49, LFTs were within normal limits. Patient was started on empiric antibiotics, IV steroids and bronchodilators, and we were asked to see the patient consultation. This morning she seen resting on a gurney in the emergency department, she is awaiting a bed on the medical surgical unit, vital signs are stable, she is in sinus mechanism with a rate of 107, pulse ox is 91% on 4 L, patient usually wears 2 L on a regular basis. On 07/02/2021 patient seen in follow-up on the medical surgical floor, patient thinks that her breathing is worse today, she is very tight bronchospastic very short of breath, she is on 4 L of oxygen pulse ox of 92-94%. Afebrile, hemodynamically she is stable, she is on IV Solu-Medrol 60 mg every 8 hours, she is on Pulmicort and Perforomist, is on antibiotics. She's had no fever or chills, she tested negative for COVID-19. Repeat chest x-ray was obtained showing persistent thickening within the periphery of the right lung, small right pleural effusion. Her pro-calcitonin was negative on admission is 0.09, blood cell count is normal at 4.3, hemoglobin was 12.2, was no evidence of fluid overload. He is bringing up some yellowish colored sputum, she is on azithromycin for antibiotic coverage. No swelling in lower extremities. She is receiving when necessary Ativan for anxiety. On today's evaluation on 07/03/2021 patient is seen in follow-up. Overnight her breathing continued to worsen, patient was quite bronchospastic last night, with labored breathing, and did become less responsive. Rapid response team was called, blood gas was obtained showing pO2 of 288, pCO2 of greater than 120, pH of 7.06. Patient was placed on BiPAP support with pressures of 12 and 5 and FiO2 of 100%, FiO2 has since been dropped down to 40%. This morning she remains on BiPAP support, she started to wake up, to provide some basic answers, although is she still very dyspneic to talk in sentences. Sounds are positive for diffuse wheezes. Yesterday's chest x-ray noted a persistent density within the periphery of the right midlung, with a consideration for atelectasis. Underlying mass could not be completely excluded. CTA chest was obtained last night going no evidence of pulmonary embolism, spinal or hilar adenopathy by CT criteria, lung windows were clear. Vision is maximized on medical treatment, she remains on IV Solu-Medrol 60 mg every 6 hours, azithromycin, Pulmicort, Perforomist, DuoNeb, yesterday we added aspirin 300 mg at bedtime. Her pro calcitonin level was negative this admission 0.09, COVID-19 PCR was negative, yesterday's blood work was fairly unremarkable, d-dimer was -0.56. On 07/05/2021 patient seen in follow-up on medical surgical floor. She remains on BiPAP support, she is of 12 and 6 and FiO2 of 50%, pulse ox is 89%, her follow up ABGs from yesterday was improving, with pH of 7.32, pCO2 of 94, and pO2 of 191, this was done 100% FiO2 which had since been dropped to 50%. Patient is currently maximized on medical treatment, she is on IV steroids with Solu-Medrol 60 g every 6 hours, she is on nebulized bronchodilators, She is on theophylline, she is on empiric antibiotics. Still very dyspneic, tight and wheezy. Not coughing any phlegm up. No chest pain. CT angiogram of chest showed no evidence of pulmonary embolism. Patient is very anxious as well, she's been getting as needed doses of Ativan. GI and DVT prophylaxis. overall much more awake, and responsive. On 07/06/2021 patient seen in follow-up on medical surgical floor, she currently remains on BiPAP with pressures of 12 and 6 on FiO2 of 50%. Any attempt to switch her to high flow nasal cannula was unsuccessful and the patient quickly desaturates down to low 80s and becomes very dyspneic. She has however moving better air on today's exam, still has diffuse wheezes, but there is better air entry noted bilaterally, breathing slightly better, patient is maximized on medical treatment including IV steroids, nebulized bronchodilators. She is on Pulmicort, Perforomist, Alejandra, she remains on theophylline, Ativan has been increased to 1 mg 3 times a day for episodes of anxiety. Today's labs have been reviewed, no evidence of leukocytosis, white blood cell count is 7.16, hemoglobin is 12.5, CO2 is 38, chloride is 88, BUN is 16 and creatinine 0.[address] electrolytes are fairly unremarkable. No fever or chills. Objective - Vital Signs Vital signs: Vital Signs Temp 97.7 F 07/06/21 07:15 Pulse 111 H 07/06/21 12:35 Resp 22 07/06/21 12:35 BP 168/113 07/06/21 07:15 Pulse Ox 91 L 07/06/21 12:21 Intake & Output 07/05/21 07/06/21 07/06/21 18:59 06:59 18:59 Intake Total 240 Output Total 900 700 400 Balance -660 700 -400 Intake: Oral 240 Output: Urine 900 700 400 Other: Voiding Method External Catheter - Exam GENERAL EXAM: Awake and responsive, quite dyspneic , 60-year-old white female, BiPAP support with pressures of 12 and 5 and FiO2 of 50%, dyspneic, bronchospastic, using accessory muscles of breathing, desaturating, with a pulse ox of 91%, and FiO2 has been adjusted back up to 40%, and EPAP was increased to 6, and pulse ox is improving HEAD: Normocephalic/atraumatic. EYES: Normal reaction of pupils, equal size. Conjunctiva pink, sclera white. NOSE: Clear with pink turbinates. THROAT: No erythema or exudates. NECK: No masses, no JVD, no thyroid enlargement, no adenopathy. CHEST: No chest wall deformity. Symmetrical expansion. LUNGS: diminished breath sounds bilaterally diffuse wheezes CVS: Regular rate and rhythm, normal S1 and S2, no gallops, no murmurs, no rubs ABDOMEN: Soft, nontender. No hepatosplenomegaly, normal bowel sounds, no guarding or rigidity. EXTREMITIES: No clubbing, no edema, no cyanosis, 2+ pulses and upper and lower extremities. MUSCULOSKELETAL: Muscle strength and tone normal. SPINE: No scoliosis or deformity SKIN: No rashes CENTRAL NERVOUS SYSTEM: Alert and oriented -3. No focal deficits, tone is normal in all 4 extremities. PSYCHIATRIC: Alert and oriented -3. Appropriate affect. Intact judgment and i nsight. - Labs CBC & Chem 7: 07/06/21 06:52 07/06/21 06:52 Labs: Abnormal Lab Results - Last 24 Hours (Table) 07/05/21 07/05/21 07/06/21 Range/Units 16:30 20:30 06:52 RBC 3.90 L (4.10-5.20) X 10*6/uL MCV 105.9 H (80.0-97.0) fL MCH 32.1 H (27.0-32.0) pg MCHC 30.3 L (32.0-37.0) g/dL Plt Count 477 H (140-440) X 10*3/uL MPV 8.7 L (9.5-12.2) fL Absolute Nucleated RBC 0.02 H (0.00-0.00) X 10*3/uL NRBC/100 WBC Diff 0.3 H (0.0-0.0) /100 WBCS Chloride (96-109) mmol/L Carbon Dioxide (21.6-31.8) mmol/L Creatinine (0.6-1.5) mg/dL BUN/Creatinine Ratio (12.00-20.00) Ratio Glucose (70-110) mg/dL POC Glucose (mg/dL) 151 H 167 H (75-99) mg/dL AST (13-35) U/L ALT (8-44) U/L 07/06/21 07/06/21 07/06/21 Range/Units 06:52 07:14 11:30 RBC (4.10-5.20) X 10*6/uL MCV (80.0-97.0) fL MCH (27.0-32.0) pg MCHC (32.0-37.0) g/dL Plt Count (140-440) X 10*3/uL MPV (9.5-12.2) fL Absolute Nucleated RBC (0.00-0.00) X 10*3/uL NRBC/100 WBC Diff (0.0-0.0) /100 WBCS Chloride 88 L (96-109) mmol/L Carbon Dioxide 38.4 H (21.6-31.8) mmol/L Creatinine 0.5 L (0.6-1.5) mg/dL BUN/Creatinine Ratio 36.76 H (12.00-20.00) Ratio Glucose 204 H (70-110) mg/dL POC Glucose (mg/dL) 203 H 192 H (75-99) mg/dL AST 36 H (13-35) U/L ALT 50 H (8-44) U/L Assessment and Plan Plan: assessment: #1. Acute exacerbation of chronic obstructive pulmonary disease, no evidence of acute pulmonary process on the chest x-ray, COVID 19 PCR was negative, patient is status post completed COVID-19 vaccination. #2. Stage IV metastatic breast cancer, status post bilateral mastectomy and oophorectomy, patient follows at the [facility] for her cancer care, she is currently on Ibrance and Foslodex, last treatment was 06/26/2021 #3. History of COPD, on home oxygen, usually wears 2 L on a regular basis, baseline FEV1 is 37% of predicted #4. History of chronic tobacco dependence #5. Hypertension #6. Depression #7. History of Alysha syndrome #8. Acute on chronic hypoxic and hypercapnic respiratory failure related to acute exacerbation of COPD, chest x-ray showed right midlung density, with possibility of atelectasis, CTA chest showed no evidence of pulmonary embolism, lung windows were clear, no mediastinal or hilar adenopathy. She was placed on BiPAP support on which she remains with pressures of 12 and 5 and FiO2 of 50% Plan: Continue BiPAP support, likely with pressures of 12 and 5 and FiO2 of 50% Has not tolerated a trial on high flow nasal cannula, quickly desaturates But breathing was a bit easier, still bronchospastic, still dyspneic, Continue IV steroids, continue abiotic's, Continue nebulized bronchodilators Overall prognosis is extremely guarded code status is DO NOT RESUSCITATE, continue supportive medical treatments I performed a history & physical examination of the patient and discussed their management with my nurse practitioner, Mere Ruth. I reviewed the nurse practitioner's note and agree with the documented findings and plan of care. Lung sounds are positive for diffuse wheezes throughout the lung [place]. The findings and the impression was discussed with the patient. I attest to the documentation by the nurse practitioner. #4. Time with Patient: Less than 30
[2021-07-06] MEDS: DRY MOUTH SPRAY 44.3 SPRAY/44.3 ML SPRAY MUCOUS MEM PRN ×2 (13:01→16:53)
[2021-07-06 13:07] LABS: Basophils # (A) 0.01 X 10*3/uL (0.00-0.10); Basophils % (A) 0.1 %; Eosinophils # (A) 0 X 10*3/uL (0.04-0.35); Eosinophils % (A) 0 %; Lymphocytes # (A) 0.27 X 10*3/uL (0.90-5.00); Lymphocytes % (A) 3.8 %; Monocytes % (A) 2.8 %; Neutrophils # (A) 6.62 X 10*3/uL (1.80-7.70); Neutrophils % (A) 92.5 %
[2021-07-06 13:32] VITALS: BMI 28.9
--- NOTE | 2021-07-06 15:01 | P.PN ---
Subjective Progress Note Date: 07/06/21 HISTORY OF PRESENT ILLNESS 60-year-old female one of Dr. 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 Also patient had abdominal uterine and fallopian metastasis from breast cancer with total hysterectomy. Patient had respiratory failure on and off in the past has been on home O2 she was hospitalized at [facility] over a month ago for COPD excessive patient was treated and done well. Patient developed to have much worsening shortness of breath cough wheezes try outpatient management not successful ended up seen Dr. Devi fleming and had apparently steroid injection along with antibiotics which did not help ended up in the emergency department at [facility] in the afternoon on 06/30/2021. At the time was seen she was quite hypoxic was having inspiratory expiratory wheezes and significant worsening symptoms. Her COVID-19 by PCR was negative chest x-ray showed COPD with right perihilar and chronic atelectasis with scar tissue. She was diagnosed with COPD excessive patient with severe bronchitis started on IV antibiotic along with IV steroids and bronchodilator pulse ox remained to be low require 4 L of O2 to keep pulse ox above 90 percentile. She was hospitalized with above problem. 07/01: Patient is seen today in the emergency center waiting for a [facility] bed. She has been started on IV Solu-Medrol and NovoLog scale will be added. IV fluids will be discontinued. She has been seen by Dr. Saldivar and Pulmicort and Perforomist added. Patient states that she is feeling much better breathing status is improved from yesterday most likely secondary to steroids. She has been afebrile, heart rate 103, blood pressure 124/90, pulse ox 94% on 3 L nasal cannula. Patient voices that she wishes to BE a no code. 07/02: Complaints of worsening shortness of breath this morning. She did have a good evening and did not take evening nebulizer treatment. She has increased shortness of breath the pulse ox is 92% on 4 L nasal cannula but patient states that her breathing is not good this morning. D-dimer ordered as well as chest x-ray and Ativan were ordered by home medicine. Patient verbalizes that she does not want to go on BiPAP. She remains on Solu-Medrol 60 mg IV every 6 hours 07/03: A-Team was called this morning at midnight this patient was found unresponsive with agonal breathing. Patient was placed on BiPAP and woke up shortly after. Pulmonary medicine has added and theophylline, continue Solu- Medrol 60 mg IV every 6 hours, nebulizers, Pulmicort, Perforomist. Chest x-ray from yesterday afternoon revealed persistent thickening within the periphery of the right mid lung currently measuring 1 cm in thickness which is increased from 2019. CT chest is recommended. Neoplasm is not excluded. CT angiogram of the chest revealed no acute pulmonary embolism. Patient has been afebrile, heart rate 100, blood pressure 145/88, respiratory rate 30, pulse ox 88% on BiPAP. R epeat Covid 19 testing ordered. 07/04: Patient currently is on BiPAP chain, for hypercapnic failure, hasn't had any regular meals, she is requesting to restart back her Ativan as she is panicking with the BiPAP in her face. She has no lightheadedness dizziness, has poor sleep, diminished appetite, she is known to have stage IV metastatic breast cancer, with last treatment in June 2021, using a ibrance and folslodex 07/05: Patient is on BiPAP, complaining of dry eye, still not sleeping at night, has daughter at bedside, updated regarding treatment plan, echocardiogram is requested to eval for pulmonary hypertension, vitals are stable, melatonin added on top of when necessary Ativan 07/06: Patient remains on BiPAP which she has been on 24 hours per day with FiO2 50%. She remains on IV steroids and nebulizer treatments, Pulmicort, and theophylline. The patient is requesting that Ativan be increased to 1 mg which we will do REVIEW OF SYSTEMS Constitutional: No fever, no chills, no night sweats. No weight change. No weakness, fatigue or lethargy. No daytime sleepiness. EENT: No headache. No blurred vision or double vision, no loss of vision. No loss of Hearing, no ringing in the ears, no dizziness. Significant congestion with no epistaxis no sore throat. Lungs: Positive shortness of breath reported cough reported wheezes. Worsening shortness of breath at rest. Cardiovascular: No chest pain, no lower extremity edema. No palpitations. No paroxysmal nocturnal dyspnea. No orthopnea. No lightheadedness or dizziness. No syncopal episodes. Abdominal: No abdominal pain. No nausea, vomiting. No diarrhea. No constipation. No bloody or tarry stools.. No loss of appetite. Genitourinary: No dysuria, increased frequency, urgency. No urinary retention. Musculoskeletal: No myalgias. No muscle weakness, no gait dysfunction, no fr equent falls. No back pain. No neck pain. Integumentary: No wounds, no lesions. No rash or pruritus. No unusual bruising. No change in hair or nails. Neurologic: No aphasia. No facial droop. No change in mentation. No head injury. No headache. No paralysis. No paresthesia. Psychiatric: No depression. No anxiety. No mood swings. Endocrine: No abnormal blood sugars. PHYSICAL EXAMINATION Gen: This is a 60-year-old laying in bed look in moderate respiratory distress. HEENT: Head is atraumatic, normocephalic. Pupils equal, round. Sclerae is anicteric. NECK: Supple. No JVD. No lymphadenopathy. No thyromegaly. LUNGS: Decreased breath sounds bilateral rhonchi positive inspiratory expiratory wheezes. Noted accessory muscle usage and intercostal retractions. HEART: Regular rate and rhythm. No murmur. ABDOMEN: Soft. Bowel sounds are present. No masses. No tenderness. EXTREMITIES: No pedal edema. No calf tenderness. NEUROLOGICAL: Patient is awake, alert and oriented x3. Cranial nerves 2 through 12 are grossly intact. ASSESSMENT AND PLAN 1. Acute on chronic hypoxic respiratory failure: Combination of COPD exacerbation or never get an along with severe bronchitis. Continue O2 on BiPAP, Solu-Medrol 60 mg IV every 6 hours, DuoNeb treatments every 4 hours scheduled and as needed, azithromycin 250 mg daily, Pulmicort 1 mg twice daily, Perforomist twice daily, theophylline 300 mg at bedtime. Pulmonary consult appresicated. Chest x-ray and CTA as above. Covid 19 testing repeated was negative. 2. COPD desperation With worsening symptoms, continue patient on IV steroid, continue DuoNeb along with Pulmicort. 3. Severe purulent tracheal bronchitis: Continue patient on antibiotic she received 1 dose of Rocephin, continue azithromycin 250 mg a day. 4. Advance breast cancer with lung metastasis: Still seen oncology still on immune oh therapy. 5. hypertension: Patient has been on amlodipine 10 mg a day continue medication. 6. Recurrent depression: Continue patient on Abilify total of 2 mg twice a day along with lorazepam and Effexor. 7. Hyperglycemia: Accu-Chek with sliding scales coverage and be done. 8. GI prophylaxis: Patient will be on pantoprazole 40 mg daily. 9. DVT prophylaxis: Patient will be on heparin subcutaneous. 10. CODE STATUS: No code. 11. COVID-19 testing were negative. DISCHARGE PLAN Home Impression and plan of care have been directed as dictated by the signing physician. Arleen Gamez nurse practitioner acting as scribe for signing physician. Objective - Vital Signs Vital signs: Vital Signs Temp 97.7 F 07/06/21 07:15 Pulse 110 H 07/06/21 07:15 Resp 28 H 07/06/21 07:15 BP 168/113 07/06/21 07:15 Pulse Ox 93 L 07/06/21 07:15 Intake & Output 07/05/21 07/06/21 07/06/21 18:59 06:59 18:59 Intake Total 240 Output Total 900 700 Balance -660 -700 Intake: Oral 240 Output: Urine 900 700 Other: Voiding Method External Catheter - Labs CBC & Chem 7: 07/06/21 06:52 07/06/21 06:52 Labs: Abnormal Lab Results - Last 24 Hours (Table) 07/05/21 07/05/21 07/05/21 Range/Units 11:37 16:30 20:30 POC Glucose (mg/dL) 216 H 151 H 167 H (75-99) mg/dL 07/06/21 Range/Units 07:14 POC Glucose (mg/dL) 203 H (75-99) mg/dL
[2021-07-06 16:48] LABS: Glucose,Whole Blood 154 mg/dL (75-99)
[2021-07-06] MEDS: LORazepam 1 MG TAB PO PRN ×2 (16:53→21:38)
--- NOTE | 2021-07-06 17:38 | ECHOF ---
Referral Reason:pulm hypertension dyspnea MEASUREMENTS -------- HEIGHT: 152.4 cm WEIGHT: 67.1 kg BP: IVSd: 0.8 cm (0.6 - 1.1) LVIDd: 3.3 cm (3.9 - 5.3) LVPWd: 1.1 cm (0.6 - 1.1) EDV(Teich): 43 ml IVSs: 1.4 cm LVIDs: 2.8 cm LVPWs: 1.1 cm %IVS Thck: 65 % ESV(Teich): 30 ml EF(Teich): 31 % %FS: 14 % SV(Teich): 14 ml RVIDd: 3.5 cm (< 3.3) Ao Diam: 2.6 cm (2.0 - 3.7) EPSS: 0.4 cm MV E Robby: 0.60 m/s MV DecT: 155 ms MV Dec Rice: 3.9 m/s MV A Robby: 0.80 m/s MV E/A Ratio: 0.75 MV PHT: 45 ms TR Vmax: 1.78 m/s TR maxP.61 mmHg RAP: 5.00 mmHg RVSP: 17.61 mmHg MV EF SLOPE: 105.20 mm/s (70 - 150) MV EXCURSION: 15.95 mm (> 18.000) FINDINGS -------- Undetermined rhythm. Pt. Has Breast inplants LV size, wall thickness and systolic function are normal, with an EF greater than 55%. The left shimon tricular size is normal. The right ventricle is normal in size. The left atrial size is normal. The right atrial size is normal. The aortic valve is trileaflet, and appears structurally normal. No aortic stenosis or regurgitation. Mild mitral regurgitation is present. Mild tricuspid regurgitation present. Right ventricular systolic pressure is normal at < 35 mmHg. The pulmonic valve was not well visualized. Echo free space indicative of a pericardial fat pad. CONCLUSIONS -------- 1. LV size, wall thickness and systolic function are normal, with an EF greater than 55%. 2. The left ventricular size is normal. 3. The right ventricle is normal in size. 4. The left atrial size is normal. 5. The right atrial size is normal. 6. The aortic valve is trileaflet, and appears structurally normal. No aortic stenosis or regurgitati on. 7. Mild mitral regurgitation is present. 8. Mild tricuspid regurgitation present. 9. The pulmonic valve was not well visualized. 10. Echo free space indicative of a pericardial fat pad. STAFF NUCLEAR MEDICINE TECHNOLOGIST: Radha Erwin RDCS
[2021-07-06] MEDS: THEOPHYLLINE 24 HOUR 300 MG CAP.ER.24H PO SCH (21:38)
[2021-07-06 21:41] LABS: Glucose,Whole Blood 154 mg/dL (75-99)
[2021-07-07] MEDS: methylPREDNISolone SOD SUCCI 125 MG/2 ML VIAL IV SCH ×4 (00:10→22:17)
[2021-07-07] MEDS: IPRATROPIUM-ALBUTEROL 3 ML NEB INHALATION SCH ×6 (04:03→23:13)
[2021-07-07 07:17] LABS: Glucose,Whole Blood 246 mg/dL (75-99)
[2021-07-07] MEDS: INSULIN ASPART (NovoLOG) 100 UNIT/ML VIAL SQ SCH ×4 (08:28→22:17)
[2021-07-07] MEDS: PANTOPRAZOLE 40 MG TABLET PO SCH (08:29)
[2021-07-07] MEDS: ARIPiprazole 2 MG TAB PO SCH ×2 (08:29→22:17)
[2021-07-07] MEDS: VENLAFAXINE HCL ER 150 MG CAP PO SCH (08:29)
[2021-07-07] MEDS: LORazepam 1 MG TAB PO PRN (08:29)
[2021-07-07] MEDS: DRY MOUTH SPRAY 44.3 SPRAY/44.3 ML SPRAY MUCOUS MEM PRN (08:30)
[2021-07-07] MEDS: ARTIFICIAL TEARS-HYPROMELLOSE DROPS 15 ML BTL BOTH EYES SCH ×3 (08:30→22:18)
[2021-07-07] MEDS: ENOXAPARIN 40 MG/0.4 ML SYRINGE SQ SCH (08:30)
[2021-07-07] MEDS: BUDESONIDE 1 MG/2 ML NEBU INHALATION SCH ×2 (09:02→19:39)
[2021-07-07] MEDS: FORMOTEROL FUMARATE 20 MCG/2 ML NEBU INHALATION SCH ×2 (09:02→19:39)
[2021-07-07 11:41] LABS: Glucose,Whole Blood 238 mg/dL (75-99)
[2021-07-07] MEDS ORDERED: FUROSEMIDE 10 MG/ML 4 ML VIAL IV STA (12:19)
[2021-07-07] MEDS: DRY MOUTH SPRAY 44.3 SPRAY/44.3 ML SPRAY MUCOUS MEM SCH ×3 (12:26→22:18)
[2021-07-07] MEDS: LORazepam 0.5 MG TAB PO SCH ×3 (12:27→22:16)
--- NOTE | 2021-07-07 13:57 | P.PN ---
Subjective Progress Note Date: 07/07/21 Principal diagnosis: Acute exacerbation of COPD This is a 57-year-old white female patient with past medical history of severe COPD, stage IV metastatic breast cancer most recently patient was on Ibrance and Foslodex ( last treatment was on June 26, 2021) patient follows at the [facility] for her breast cancer care, with previous radiation therapy, hypertension, hyperlipidemia, depression, anxiety. Patient is status post bilateral mastectomy and oophorectomy at the [facility]. Patient presented to the emergency department on 06/30/2021 for evaluation of increased cough, and dyspnea and this has been going on since Tuesday. She went to see Dr. Azevedo in the office and was given a steroid injection, she has not improved, she denies any fever or chills, she has been vaccinated against coronavirus. Her cough is mostly nonproductive, no complaints of central chest pain, swelling or pain. Her chest x-ray shows COPD with right perihilar chronic atelectasis or scarring, based on comparison to previous images. COVID-19 PCR was negative, lab work was reviewed, white blood cell count was normal at 4.3, hemoglobin was 12.12, correlation profile was within normal limits, sodium is 134, potassium is 4.3, chloride is 93, CO2 32, BUN is 9, creatinine 0.49, LFTs were within normal limits. Patient was started on empiric antibiotics, IV steroids and bronchodilators, and we were asked to see the patient consultation. This morning she seen resting on a gurney in the emergency department, she is awaiting a bed on the medical surgical unit, vital signs are stable, she is in sinus mechanism with a rate of 107, pulse ox is 91% on 4 L, patient usually wears 2 L on a regular basis. On 07/02/2021 patient seen in follow-up on the medical surgical floor, patient thinks that her breathing is worse today, she is very tight bronchospastic very short of breath, she is on 4 L of oxygen pulse ox of 92-94%. Afebrile, hemodynamically she is stable, she is on IV Solu-Medrol 60 mg every 8 hours, she is on Pulmicort and Perforomist, is on antibiotics. She's had no fever or chills, she tested negative for COVID-19. Repeat chest x-ray was obtained showing persistent thickening within the periphery of the right lung, small right pleural effusion. Her pro-calcitonin was negative on admission is 0.09, blood cell count is normal at 4.3, hemoglobin was 12.2, was no evidence of fluid overload. He is bringing up some yellowish colored sputum, she is on azithromycin for antibiotic coverage. No swelling in lower extremities. She is receiving when necessary Ativan for anxiety. On today's evaluation on 07/03/2021 patient is seen in follow-up. Overnight her breathing continued to worsen, patient was quite bronchospastic last night, with labored breathing, and did become less responsive. Rapid response team was called, blood gas was obtained showing pO2 of 288, pCO2 of greater than 120, pH of 7.06. Patient was placed on BiPAP support with pressures of 12 and 5 and FiO2 of 100%, FiO2 has since been dropped down to 40%. This morning she remains on BiPAP support, she started to wake up, to provide some basic answers, although is she still very dyspneic to talk in sentences. Sounds are positive for diffuse wheezes. Yesterday's chest x-ray noted a persistent density within the periphery of the right midlung, with a consideration for atelectasis. Underlying mass could not be completely excluded. CTA chest was obtained last night going no evidence of pulmonary embolism, spinal or hilar adenopathy by CT criteria, lung windows were clear. Vision is maximized on medical treatment, she remains on IV Solu-Medrol 60 mg every 6 hours, azithromycin, Pulmicort, Perforomist, DuoNeb, yesterday we added aspirin 300 mg at bedtime. Her pro calcitonin level was negative this admission 0.09, COVID-19 PCR was negative, yesterday's blood work was fairly unremarkable, d-dimer was -0.56. On 07/05/2021 patient seen in follow-up on medical surgical floor. She remains on BiPAP support, she is of 12 and 6 and FiO2 of 50%, pulse ox is 89%, her follow up ABGs from yesterday was improving, with pH of 7.32, pCO2 of 94, and pO2 of 191, this was done 100% FiO2 which had since been dropped to 50%. Patient is currently maximized on medical treatment, she is on IV steroids with Solu-Medrol 60 g every 6 hours, she is on nebulized bronchodilators, She is on theophylline, she is on empiric antibiotics. Still very dyspneic, tight and wheezy. Not coughing any phlegm up. No chest pain. CT angiogram of chest showed no evidence of pulmonary embolism. Patient is very anxious as well, she's been getting as needed doses of Ativan. GI and DVT prophylaxis. overall much more awake, and responsive. On 07/06/2021 patient seen in follow-up on medical surgical floor, she currently remains on BiPAP with pressures of 12 and 6 on FiO2 of 50%. Any attempt to switch her to high flow nasal cannula was unsuccessful and the patient quickly desaturates down to low 80s and becomes very dyspneic. She has however moving better air on today's exam, still has diffuse wheezes, but there is better air entry noted bilaterally, breathing slightly better, patient is maximized on medical treatment including IV steroids, nebulized bronchodilators. She is on Pulmicort, PerforomistAlejandra, she remains on theophylline, Ativan has been increased to 1 mg 3 times a day for episodes of anxiety. Today's labs have been reviewed, no evidence of leukocytosis, white blood cell count is 7.16, hemoglobin is 12.5, CO2 is 38, chloride is 88, BUN is 16 and creatinine 0.[address] electrolytes are fairly unremarkable. No fever or chills. On 07/07/2021 patient seen in follow-up on medical surgical floor, she remains on BiPAP with pressures of 12 and 6 and FiO2 of 50%, she is awake and alert, she responds to verbal questions, seems to be breathing better, still has diffuse wheezes, but seems to be achieving good volumes up to 500 mL on the BiPAP sup port. On today's evaluation patient also had some scattered crackles at the bilateral bases. IV fluids have been discontinued, overall she is in -600 mL net fluid balance, she has not been able to take in much by mouth secondary to being BiPAP dependent, her daughter is at the bedside, she states her mother has not been able to eat any meals, however she has been drinking nutritional supplements. Patient continues on nebulized bronchodilators, she is on IV steroids with Solu-Medrol 60 mg every 6 hours, she is on theophylline, and she is receiving lorazepam 0.5 mg 4 times daily on a scheduled basis for anxiety. Echocardiogram showed preserved LV function with no significant valvular dysfu nction, there was no aortic stenosis or regurgitation, mild mitral regurgitation, mild tricuspid regurgitation, right-sided pressures were less than 35 mmHg. Objective - Vital Signs Vital signs: Vital Signs Temp 97.3 F L 07/07/21 08:00 Pulse 118 H 07/07/21 12:17 Resp 24 07/07/21 09:25 BP 132/92 07/07/21 08:00 Pulse Ox 94 L 07/07/21 09:03 Intake & Output 07/06/21 07/07/21 07/07/21 18:59 06:59 18:59 Intake Total 100 Output Total 700 Balance -700 100 Weight 67.132 kg Intake: Oral 100 Output: Urine 700 Other: Voiding Method External Catheter External Catheter External Catheter # Voids 3 # Bowel Movements 1 - Exam GENERAL EXAM: Awake and responsive, quite dyspneic , 60-year-old white female, BiPAP support with pressures of 12 and 5 and FiO2 of 50%, dyspneic, bronchospastic, patient seems to be less dyspneic, there is improved air entry bilaterally, breathing easier, HEAD: Normocephalic/atraumatic. EYES: Normal reaction of pupils, equal size. Conjunctiva pink, sclera white. NOSE: Clear with pink turbinates. THROAT: No erythema or exudates. NECK: No masses, no JVD, no thyroid enlargement, no adenopathy. CHEST: No chest wall deformity. Symmetrical expansion. LUNGS: diminished breath sounds bilaterally diffuse wheezes, diffuse improved air entry bilaterally, and there is some crackles at bilateral bases CVS: Regular rate and rhythm, normal S1 and S2, no gallops, no murmurs, no rubs ABDOMEN: Soft, nontender. No hepatosplenomegaly, normal bowel sounds, no guarding or rigidity. EXTREMITIES: No clubbing, no edema, no cyanosis, 2+ pulses and upper and lower extremities. MUSCULOSKELETAL: Muscle strength and tone normal. SPINE: No scoliosis or deformity SKIN: No rashes CENTRAL NERVOUS SYSTEM: Alert and oriented -3. No focal deficits, tone is normal in all 4 extremities. PSYCHIATRIC: Alert and oriented -3. Appropriate affect. Intact judgment and insight. - Labs CBC & Chem 7: 07/06/21 06:52 07/06/21 06:52 Labs: Abnormal Lab Results - Last 24 Hours (Table) 07/06/21 07/06/21 07/07/21 Range/Units 16:46 21:39 07:10 POC Glucose (mg/dL) 154 H 154 H 246 H (75-99) mg/dL 07/07/21 Range/Units 11:40 POC Glucose (mg/dL) 238 H (75-99) mg/dL Assessment and Plan Plan: assessment: #1. Acute exacerbation of chronic obstructive pulmonary disease, no evidence of acute pulmonary process on the chest x-ray, COVID 19 PCR was negative, patient is status post completed COVID-19 vaccination. #2. Stage IV metastatic breast cancer, status post bilateral mastectomy and oophorectomy, patient follows at the [facility] for her cancer care, she is currently on Ibrance and Foslodex, last treatment was 06/26/2021 #3. History of COPD, on home oxygen, usually wears 2 L on a regular basis, baseline FEV1 is 37% of predicted #4. History of chronic tobacco dependence #5. Hypertension #6. Depression #7. History of Alysha syndrome #8. Acute on chronic hypoxic and hypercapnic respiratory failure related to acute exacerbation of COPD, chest x-ray showed right midlung density, with possibility of atelectasis, CTA chest showed no evidence of pulmonary embolism, lung windows were clear, no mediastinal or hilar adenopathy. She was placed on BiPAP support on which she remains with pressures of 12 and 5 and FiO2 of 50% Plan: Continue BiPAP support, likely with pressures of 12 and 5 and FiO2 of 50% clinically seems to be breathing a bit easier Still BiPap dependent, but work of breathing seems to have improved, no use of accessory muscles Continue IV steroids, continue antibiotic's, Continue nebulized bronchodilators One dose Lasix 40 mg IVP Echo noted BMP, CBC in am I performed a history & physical examination of the patient and discussed their management with my nurse practitioner, Mere Ruth. I reviewed the nurse practitioner's note and agree with the documented findings and plan of care. Lung sounds are positive for diffuse wheezes throughout the lung [place]. The findings and the impression was discussed with the patient. I attest to the documentation by the nurse practitioner. #4. Time with Patient: Less than 30
[2021-07-07 17:05] LABS: Glucose,Whole Blood 182 mg/dL (75-99)
--- NOTE | 2021-07-07 17:06 | P.PN ---
Subjective Progress Note Date: 07/07/21 HISTORY OF PRESENT ILLNESS 60-year-old female one of Dr. 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 Also patient had abdominal uterine and fallopian metastasis from breast cancer with total hysterectomy. Patient had respiratory failure on and off in the past has been on home O2 she was hospitalized at [facility] over a month ago for COPD excessive patient was treated and done well. Patient developed to have much worsening shortness of breath cough wheezes try outpatient management not successful ended up seen Dr. Devi fleming and had apparently steroid injection along with antibiotics which did not help ended up in the emergency department at [facility] in the afternoon on 06/30/2021. At the time was seen she was quite hypoxic was having inspiratory expiratory wheezes and significant worsening symptoms. Her COVID-19 by PCR was negative chest x-ray showed COPD with right perihilar and chronic atelectasis with scar tissue. She was diagnosed with COPD excessive patient with severe bronchitis started on IV antibiotic along with IV steroids and bronchodilator pulse ox remained to be low require 4 L of O2 to keep pulse ox above 90 percentile. She was hospitalized with above problem. 07/01: Patient is seen today in the emergency center waiting for a [facility] bed. She has been started on IV Solu-Medrol and NovoLog scale will be added. IV fluids will be discontinued. She has been seen by Dr. Saldivar and Pulmicort and Perforomist added. Patient states that she is feeling much better breathing status is improved from yesterday most likely secondary to steroids. She has been afebrile, heart rate 103, blood pressure 124/90, pulse ox 94% on 3 L nasal cannula. Patient voices that she wishes to BE a no code. 07/02: Complaints of worsening shortness of breath this morning. She did have a good evening and did not take evening nebulizer treatment. She has increased shortness of breath the pulse ox is 92% on 4 L nasal cannula but patient states that her breathing is not good this morning. D-dimer ordered as well as chest x-ray and Ativan were ordered by home medicine. Patient verbalizes that she does not want to go on BiPAP. She remains on Solu-Medrol 60 mg IV every 6 hours 07/03: A-Team was called this morning at midnight this patient was found unresponsive with agonal breathing. Patient was placed on BiPAP and woke up shortly after. Pulmonary medicine has added and theophylline, continue Solu- Medrol 60 mg IV every 6 hours, nebulizers, Pulmicort, Perforomist. Chest x-ray from yesterday afternoon revealed persistent thickening within the periphery of the right mid lung currently measuring 1 cm in thickness which is increased from 2019. CT chest is recommended. Neoplasm is not excluded. CT angiogram of the chest revealed no acute pulmonary embolism. Patient has been afebrile, heart rate 100, blood pressure 145/88, respiratory rate 30, pulse ox 88% on BiPAP. R epeat Covid 19 testing ordered. 07/04: Patient currently is on BiPAP chain, for hypercapnic failure, hasn't had any regular meals, she is requesting to restart back her Ativan as she is panicking with the BiPAP in her face. She has no lightheadedness dizziness, has poor sleep, diminished appetite, she is known to have stage IV metastatic breast cancer, with last treatment in June 2021, using a ibrance and folslodex 07/05: Patient is on BiPAP, complaining of dry eye, still not sleeping at night, has daughter at bedside, updated regarding treatment plan, echocardiogram is requested to eval for pulmonary hypertension, vitals are stable, melatonin added on top of when necessary Ativan 07/06: Patient remains on BiPAP which she has been on 24 hours per day with FiO2 50%. She remains on IV steroids and nebulizer treatments, Pulmicort, and theophylline. The patient is requesting that Ativan be increased to 1 mg which we will do 07/07: Patient continues to have respiratory difficulty, and remains on bipap ATC. Pulse ox 93% on FiO2 50%. Patient is more sedated today and Ativan will be decreased to 0.5 mg but increased frequency to qid. Patient has been afebrile, HR 114, BP 132/92. CBG 154-238. REVIEW OF SYSTEMS Constitutional: No fever, no chills, no night sweats. No weight change. No weakness, fatigue or lethargy. No daytime sleepiness. EENT: No headache. No blurred vision or double vision, no loss of vision. No loss of Hearing, no ringing in the ears, no dizziness. Significant congestion with no epistaxis no sore throat. Lungs: Positive shortness of breath reported cough reported wheezes. Continued shortness of breath at rest. Cardiovascular: No chest pain, no lower extremity edema. No palpitations. No paroxysmal nocturnal dyspnea. No orthopnea. No lightheadedness or dizziness. No syncopal episodes. Abdominal: No abdominal pain. No nausea, vomiting. No diarrhea. No constipation. No bloody or tarry stools.. No loss of appetite. Genitourinary: No dysuria, increased frequency, urgency. No urinary retention. Musculoskeletal: No myalgias. No muscle weakness, no gait dysfunction, no frequent falls. No back pain. No neck pain. Integumentary: No wounds, no lesions. No rash or pruritus. No unusual bruising. No change in hair or nails. Neurologic: No aphasia. No facial droop. No change in mentation. No head injury. No headache. No paralysis. No paresthesia. Psychiatric: No depression. No anxiety. No mood swings. Endocrine: No abnormal blood sugars. PHYSICAL EXAMINATION Gen: This is a 60-year-old laying in bed look in minimal respiratory distress at rest. HEENT: Head is atraumatic, normocephalic. Pupils equal, round. Sclerae is anicteric. NECK: Supple. No JVD. No lymphadenopathy. No thyromegaly. LUNGS: Decreased breath sounds bilateral rhonchi positive inspiratory expiratory wheezes. Noted accessory muscle usage and intercostal retractions. HEART: Regular rate and rhythm. No murmur. ABDOMEN: Soft. Bowel sounds are present. No masses. No tenderness. EXTREMITIES: No pedal edema. No calf tenderness. NEUROLOGICAL: Patient is awake, alert and oriented x3. Cranial nerves 2 through 12 are grossly intact. ASSESSMENT AND PLAN 1. Acute on chronic hypoxic respiratory failure: Combination of COPD exacerbation or never get an along with severe bronchitis. Continue O2 on BiPAP, Solu-Medrol 60 mg IV every 6 hours, DuoNeb treatments every 4 hours scheduled and as needed, azithromycin 250 mg daily, Pulmicort 1 mg twice daily, Perforomist twice daily, theophylline 300 mg at bedtime. Pulmonary consult appresicated. Chest x-ray and CTA as above. Covid 19 testing repeated was negative. 2. COPD desperation With worsening symptoms, continue patient on IV steroid, continue DuoNeb along with Pulmicort. 3. Severe purulent tracheal bronchitis: Continue patient on antibiotic she received 1 dose of Rocephin, continue azithromycin 250 mg a day. 4. Advance breast cancer with lung metastasis: Still seen oncology still on immune oh therapy. 5. hypertension: Patient has been on amlodipine 10 mg a day continue medication. 6. Recurrent depression: Continue patient on Abilify total of 2 mg twice a day along with lorazepam and Effexor. 7. Hyperglycemia: Accu-Chek with sliding scales coverage and be done. 8. GI prophylaxis: Patient will be on pantoprazole 40 mg daily. 9. DVT prophylaxis: Patient will be on heparin subcutaneous. 10. Dry mouth. Mouthkote qid. 11. General anxiety disorder. Ativan 0.5 mg qid. 12. CODE STATUS: No code. 13. COVID-19 testing negative. DISCHARGE PLAN Home Impression and plan of care have been directed as dictated by the signing physician. Arleen Gamez nurse practitioner acting as scribe for signing physician. Objective - Vital Signs Vital signs: Vital Signs Temp 97.3 F L 07/07/21 08:00 Pulse 111 H 07/07/21 09:25 Resp 24 07/07/21 09:25 BP 132/92 07/07/21 08:00 Pulse Ox 94 L 07/07/21 09:03 Intake & Output 07/06/21 07/07/21 07/07/21 18:59 06:59 18:59 Intake Total 100 Output Total 700 Balance -700 100 Weight 67.132 kg Intake: Oral 100 Output: Urine 700 Other: Voiding Method External Catheter External Catheter # Voids 3 # Bowel Movements 1 - Labs CBC & Chem 7: 07/06/21 06:52 07/06/21 06:52 Labs: Abnormal Lab Results - Last 24 Hours (Table) 07/06/21 07/06/21 07/06/21 Range/Units 06:52 06:52 11:30 RBC 3.90 L (4.10-5.20) X 10*6/uL MCV 105.9 H (80.0-97.0) fL MCH 32.1 H (27.0-32.0) pg MCHC 30.3 L (32.0-37.0) g/dL Plt Count 477 H (140-440) X 10*3/uL MPV 8.7 L (9.5-12.2) fL Absolute Nucleated RBC 0.02 H (0.00-0.00) X 10*3/uL Immature Gran # 0.06 H (0.00-0.04) X 10*3/uL Lymphocytes # 0.27 L (0.90-5.00) X 10*3/uL Eosinophils # 0 L (0.04-0.35) X 10*3/uL NRBC/100 WBC Diff 0.3 H (0.0-0.0) /100 WBCS Chloride 88 L (96-109) mmol/L Carbon Dioxide 38.4 H (21.6-31.8) mmol/L Creatinine 0.5 L (0.6-1.5) mg/dL BUN/Creatinine Ratio 36.76 H (12.00-20.00) Ratio Glucose 204 H (70-110) mg/dL POC Glucose (mg/dL) 192 H (75-99) mg/dL AST 36 H (13-35) U/L ALT 50 H (8-44) U/L 07/06/21 07/06/21 07/07/21 Range/Units 16:46 21:39 07:10 RBC (4.10-5.20) X 10*6/uL MCV (80.0-97.0) fL MCH (27.0-32.0) pg MCHC (32.0-37.0) g/dL Plt Count (140-440) X 10*3/uL MPV (9.5-12.2) fL Absolute Nucleated RBC (0.00-0.00) X 10*3/uL Immature Gran # (0.00-0.04) X 10*3/uL Lymphocytes # (0.90-5.00) X 10*3/uL Eosinophils # (0.04-0.35) X 10*3/uL NRBC/100 WBC Diff (0.0-0.0) /100 WBCS Chloride (96-109) mmol/L Carbon Dioxide (21.6-31.8) mmol/L Creatinine (0.6-1.5) mg/dL BUN/Creatinine Ratio (12.00-20.00) Ratio Glucose (70-110) mg/dL POC Glucose (mg/dL) 154 H 154 H 246 H (75-99) mg/dL AST (13-35) U/L ALT (8-44) U/L
[2021-07-07 20:51] LABS: Glucose,Whole Blood 187 mg/dL (75-99)
[2021-07-07] MEDS: THEOPHYLLINE 24 HOUR 300 MG CAP.ER.24H PO SCH (22:16)
[2021-07-08] MEDS: IPRATROPIUM-ALBUTEROL 3 ML NEB INHALATION SCH ×5 (03:43→19:22)
[2021-07-08] MEDS: methylPREDNISolone SOD SUCCI 125 MG/2 ML VIAL IV SCH ×4 (04:23→22:07)
[2021-07-08] MEDS: LORazepam 0.5 MG TAB PO SCH ×4 (04:24→22:16)
[2021-07-08] MEDS: FORMOTEROL FUMARATE 20 MCG/2 ML NEBU INHALATION SCH ×2 (07:03→19:22)
[2021-07-08] MEDS: BUDESONIDE 1 MG/2 ML NEBU INHALATION SCH ×2 (07:03→19:22)
[2021-07-08 07:04] LABS: Glucose,Whole Blood 209 mg/dL (75-99)
--- NOTE | 2021-07-08 08:14 | XR ---
EXAMINATION TYPE: XR chest 1V portable DATE OF EXAM: 07/08/2021 COMPARISON: 07/02/2021 HISTORY: Shortness of breath TECHNIQUE: Single frontal view of the chest is obtained. FINDINGS: Linear right perihilar subsegmental consolidation noted and there is pleural thickening or small effusion right. Subsegmental changes left lung base. Correlate for underlying COPD. Surgical c lips axilla postsurgical change involving the vertebral column with curvature. No pneumothorax. Right apical pleural thickening. IMPRESSION: 1. Pleural thickening or small effusion at the right lung base with persistence linear stranding exte nding from the right hilum likely related atelectasis or scar
[2021-07-08] MEDS: ENOXAPARIN 40 MG/0.4 ML SYRINGE SQ SCH (08:30)
[2021-07-08] MEDS: INSULIN ASPART (NovoLOG) 100 UNIT/ML VIAL SQ SCH ×5 (08:30→20:12)
[2021-07-08] MEDS: VENLAFAXINE HCL ER 150 MG CAP PO SCH (08:31)
[2021-07-08] MEDS: ARIPiprazole 2 MG TAB PO SCH ×3 (08:31→22:05)
[2021-07-08] MEDS: PANTOPRAZOLE 40 MG TABLET PO SCH (08:31)
[2021-07-08] MEDS: ARTIFICIAL TEARS-HYPROMELLOSE DROPS 15 ML BTL BOTH EYES SCH ×3 (08:32→20:13)
[2021-07-08] MEDS: DRY MOUTH SPRAY 44.3 SPRAY/44.3 ML SPRAY MUCOUS MEM SCH ×4 (08:32→20:14)
[2021-07-08 10:07] LABS: Basophils # (A) 0.01 X 10*3/uL (0.00-0.10); Basophils % (A) 0.1 %; Eosinophils # (A) 0 X 10*3/uL (0.04-0.35); Eosinophils % (A) 0 %; HCT 43.4 % (37.2-46.3); HGB 13.6 g/dL (12.0-15.0); Lymphocytes # (A) 0.29 X 10*3/uL (0.90-5.00); Lymphocytes % (A) 4.2 %; MCH 32.9 pg (27.0-32.0); MCHC 31.3 g/dL (32.0-37.0); MCV 104.8 fL (80.0-97.0); Mean Platelet Volume 8.8 fL (9.5-12.2); Monocytes # (A) 0.25 X 10*3/uL (0.20-1.00); Monocytes % (A) 3.6 %; Neutrophils # (A) 6.32 X 10*3/uL (1.80-7.70); Neutrophils % (A) 91.1 %; Platelet Count 453 X 10*3/uL (140-440); RBC 4.14 X 10*6/uL (4.10-5.20); RDW 13.7 % (11.5-14.5); WBC 6.94 X 10*3/uL (4.50-10.00)
[2021-07-08] MEDS: busPIRone HCl 10 MG TAB PO SCH ×3 (10:33→22:05)
[2021-07-08] MEDS: FLUCONAZOLE 100 MG TAB PO SCH (10:33)
[2021-07-08 10:55] LABS: African American GFR (CKD) 116.6 (60.0-200.0); Anion Gap 12.6 mmol/L (4.00-12.00); BUN/Creat Ratio 33.44 Ratio (12.00-20.00); Calcium 9.3 mg/dL (8.7-10.3); Carbon Dioxide 39.5 mmol/L (21.6-31.8); Non-African American GFR(CKD) 100.6 (60.0-200.0); Potassium 4.6 mmol/L (3.5-5.5)
[2021-07-08 11:23] LABS: Glucose,Whole Blood 416 mg/dL (75-99)
[2021-07-08 11:37] LABS: Glucose,Whole Blood 386 mg/dL (75-99)
[2021-07-08] MEDS ORDERED: INSULIN ASPART (NovoLOG) 100 UNIT/ML VIAL SQ ONE (12:00)
--- NOTE | 2021-07-08 12:31 | P.PN ---
Subjective Progress Note Date: 07/08/21 This is a 57-year-old white female patient with past medical history of severe COPD, stage IV metastatic breast cancer most recently patient was on Ibrance and Foslodex ( last treatment was on June 26, 2021) patient follows at the [facility] for her breast cancer care, with previous radiation therapy, hypertension, hyperlipidemia, depression, anxiety. Patient is status post bilateral mastectomy and oophorectomy at the [facility]. Patient presented to the emergency department on 06/30/2021 for evaluation of increased cough, and dyspnea and this has been going on since Tuesday. She went to see Dr. Azevedo in the office and was given a steroid injection, she has not improved, she denies any fever or chills, she has been vaccinated against coronavirus. Her cough is mostly nonproductive, no complaints of central chest pain, swelling or pain. Her chest x-ray shows COPD with right perihilar chronic atelectasis or scarring, based on comparison to previous images. COVID-19 PCR was negative, lab work was reviewed, white blood cell count was normal at 4.3, hemoglobin was 12.12, correlation profile was within normal limits, sodium is 134, potassium is 4.3, chloride is 93, CO2 32, BUN is 9, creatinine 0.49, LFTs were within normal limits. Patient was started on empiric antibiotics, IV steroids and bronchodilators, and we were asked to see the patient consultation. This morning she seen resting on a gurney in the emergency department, she is awaiting a bed on the medical surgical unit, vital signs are stable, she is in sinus mechanism with a rate of 107, pulse ox is 91% on 4 L, patient usually wears 2 L on a regular basis. On 07/02/2021 patient seen in follow-up on the medical surgical floor, patient thinks that her breathing is worse today, she is very tight bronchospastic very short of breath, she is on 4 L of oxygen pulse ox of 92-94%. Afebrile, hemod ynamically she is stable, she is on IV Solu-Medrol 60 mg every 8 hours, she is on Pulmicort and Perforomist, is on antibiotics. She's had no fever or chills, she tested negative for COVID-19. Repeat chest x-ray was obtained showing persistent thickening within the periphery of the right lung, small right pleural effusion. Her pro-calcitonin was negative on admission is 0.09, blood cell count is normal at 4.3, hemoglobin was 12.2, was no evidence of fluid overload. He is bringing up some yellowish colored sputum, she is on azithromycin for antibiotic coverage. No swelling in lower extremities. She is receiving when necessary Ativan for anxiety. On today's evaluation on 07/03/2021 patient is seen in follow-up. Overnight her breathing continued to worsen, patient was quite bronchospastic last night, with labored breathing, and did become less responsive. Rapid response team was aranza led, blood gas was obtained showing pO2 of 288, pCO2 of greater than 120, pH of 7.06. Patient was placed on BiPAP support with pressures of 12 and 5 and FiO2 of 100%, FiO2 has since been dropped down to 40%. This morning she remains on BiPAP support, she started to wake up, to provide some basic answers, although is she still very dyspneic to talk in sentences. Sounds are positive for diffuse wheezes. Yesterday's chest x-ray noted a persistent density within the periphery of the right midlung, with a consideration for atelectasis. Underlying mass could not be completely excluded. CTA chest was obtained last night going no evidence of pulmonary embolism, spinal or hilar adenopathy by CT criteria, lung windows were clear. Vision is maximized on medical treatment, she remains on IV Solu-Medrol 60 mg every 6 hours, azithromycin, Pulmicort, Perforomist, DuoNeb, yesterday we added aspirin 300 mg at bedtime. Her pro calcitonin level was negative this admission 0.09, COVID-19 PCR was negative, yesterday's blood work was fairly unremarkable, d-dimer was -0.56. On 07/05/2021 patient seen in follow-up on medical surgical floor. She remains on BiPAP support, she is of 12 and 6 and FiO2 of 50%, pulse ox is 89%, her follow up ABGs from yesterday was improving, with pH of 7.32, pCO2 of 94, and pO2 of 191, this was done 100% FiO2 which had since been dropped to 50%. Patient is currently maximized on medical treatment, she is on IV steroids with Solu-Medrol 60 g every 6 hours, she is on nebulized bronchodilators, She is on theophylline, she is on empiric antibiotics. Still very dyspneic, tight and wheezy. Not coughing any phlegm up. No chest pain. CT angiogram of chest show ed no evidence of pulmonary embolism. Patient is very anxious as well, she's been getting as needed doses of Ativan. GI and DVT prophylaxis. overall much more awake, and responsive. On 07/06/2021 patient seen in follow-up on medical surgical floor, she currently remains on BiPAP with pressures of 12 and 6 on FiO2 of 50%. Any attempt to switch her to high flow nasal cannula was unsuccessful and the patient quickly desaturates down to low 80s and becomes very dyspneic. She has however moving better air on today's exam, still has diffuse wheezes, but there is better air entry noted bilaterally, breathing slightly better, patient is maximized on medical treatment including IV steroids, nebulized bronchodilators. She is on Pulmicort, Perforomist, DuoNeb, she remains on theophylline, Ativan has been increased to 1 mg 3 times a day for episodes of anxiety. Today's labs have been reviewed, no evidence of leukocytosis, white blood cell count is 7.16, hemoglobin is 12.5, CO2 is 38, chloride is 88, BUN is 16 and creatinine 0.[address] electrolytes are fairly unremarkable. No fever or chills. On 07/07/2021 patient seen in follow-up on medical surgical floor, she remains on BiPAP with pressures of 12 and 6 and FiO2 of 50%, she is awake and alert, she responds to verbal questions, seems to be breathing better, still has diffuse wheezes, but seems to be achieving good volumes up to 500 mL on the BiPAP support. On today's evaluation patient also had some scattered crackles at the bilateral bases. IV fluids have been discontinued, overall she is in -600 mL net fluid balance, she has not been able to take in much by mouth secondary to being BiPAP dependent, her daughter is at the bedside, she states her mother has not been able to eat any meals, however she has been drinking nutritional supplements. Patient continues on nebulized bronchodilators, she is on IV steroids with Solu-Medrol 60 mg every 6 hours, she is on theophylline, and she is receiving lorazepam 0.5 mg 4 times daily on a scheduled basis for anxiety. Echocardiogram showed preserved LV function with no significant valvular dysfunction, there was no aortic stenosis or regurgitation, mild mitral regurgi tation, mild tricuspid regurgitation, right-sided pressures were less than 35 mmHg. 07/08/2021, the patient remains on bicarbonate essentially the same setting of 6 with an FiO2 of 40%. Her pulse ox is around 8900 monitor. She is anxious and is a bit Desmond Kercher generating tidal volume 400 range while on the BiPAP and her respiratory rate is around 25. She is anxious and she wants BiPAP on. She feels that she cannot tolerate off the BiPAP. No chest pain. She was given a dose of Lasix yesterday and the patient responded to the diuretics and the patient has been a negative fluid balance 600 mL over the past 24 hours. Meanwhile, the patient continues to be on DuoNeb nebulized treatments around the clock, she remains on IV Solu Medrol 60 mg every 6 hours. Echocardiogram showed a preserved LV function. No significant valvular abnormality. No significant pulmonary hypertension. No major edema lower extremities. Her anxiety levels remain quite high and the patient is receiving Ativan on an as-needed basis. The patient has a white cell count of 6.9 with a hemoglobin of 13.6, BUN is at 20 with a creatinine 0.6, serum bicarb is at 39 and a glucose and currently is at 386. Regards her blood sugar control, the patient is receiving insulin sliding scale coverage. She is also on Lovenox 40 mg subcu for DVT prophylaxis. She is on clonidine patch for blood pressure control patient is also on Diflucan 100 mg by mouth daily for oropharyngeal candidiasis. Objective - Vital Signs Vital signs: Vital Signs Temp 97.6 F 07/08/21 08:00 Pulse 118 H 07/08/21 11:11 Resp 24 07/08/21 11:11 BP 150/82 07/08/21 08:00 Pulse Ox 89 L 07/08/21 08:00 Intake & Output 07/07/21 07/08/21 07/08/21 18:59 06:59 18:59 Intake Total 800 Output Total 800 480 Balance 0 -480 Intake: Oral 800 Output: Urine 800 480 Other: Voiding Method External Catheter External Catheter External Catheter # Bowel Movements 0 - Exam GENERAL EXAM: Awake and responsive, quite dyspneic , 60-year-old white female, BiPAP support with pressures of 12 and 6 and FiO2 of 40%, dyspneic, bronchospastic, patient seems to be less dyspneic, there is improved air entry bilaterally, breathing easier, HEAD: Normocephalic/atraumatic. EYES: Normal reaction of pupils, equal size. Conjunctiva pink, sclera white. NOSE: Clear with pink turbinates. THROAT: No erythema or exudates. NECK: No masses, no JVD, no thyroid enlargement, no adenopathy. CHEST: No chest wall deformity. Symmetrical expansion. LUNGS: diminished breath sounds bilaterally diffuse wheezes, diffuse improved air entry bilaterally, and there is some crackles at bilateral bases CVS: Regular rate and rhythm, normal S1 and S2, no gallops, no murmurs, no rubs ABDOMEN: Soft, nontender. No hepatosplenomegaly, normal bowel sounds, no guarding or rigidity. EXTREMITIES: No clubbing, no edema, no cyanosis, 2+ pulses and upper and lower extremities. MUSCULOSKELETAL: Muscle strength and tone normal. SPINE: No scoliosis or deformity SKIN: No rashes CENTRAL NERVOUS SYSTEM: Alert and oriented -3. No focal deficits, tone is normal in all 4 extremities. PSYCHIATRIC: Alert and oriented -3. Appropriate affect. Intact judgment and insight. - Labs CBC & Chem 7: 07/08/21 05:31 07/08/21 05:31 Labs: Abnormal Lab Results - Last 24 Hours (Table) 07/07/21 07/07/21 07/08/21 Range/Units 17:03 20:49 05:31 MCV 104.8 H (80.0-97.0) fL MCH 32.9 H (27.0-32.0) pg MCHC 31.3 L (32.0-37.0) g/dL Plt Count 453 H (140-440) X 10*3/uL MPV 8.8 L (9.5-12.2) fL Immature Gran # 0.07 H (0.00-0.04) X 10*3/uL Lymphocytes # 0.29 L (0.90-5.00) X 10*3/uL Eosinophils # 0 L (0.04-0.35) X 10*3/uL Chloride (96-109) mmol/L Carbon Dioxide (21.6-31.8) mmol/L Anion Gap (4.00-12.00) mmol/L BUN/Creatinine Ratio (12.00-20.00) Ratio Glucose (70-110) mg/dL POC Glucose (mg/dL) 182 H 187 H (75-99) mg/dL 07/08/21 07/08/21 07/08/21 Range/Units 05:31 06:50 11:19 MCV (80.0-97.0) fL MCH (27.0-32.0) pg MCHC (32.0-37.0) g/dL Plt Count (140-440) X 10*3/uL MPV (9.5-12.2) fL Immature Gran # (0.00-0.04) X 10*3/uL Lymphocytes # (0.90-5.00) X 10*3/uL Eosinophils # (0.04-0.35) X 10*3/uL Chloride 87 L (96-109) mmol/L Carbon Dioxide 39.5 H (21.6-31.8) mmol/L Anion Gap 12.60 H (4.00-12.00) mmol/L BUN/Creatinine Ratio 33.44 H (12.00-20.00) Ratio Glucose 189 H (70-110) mg/dL POC Glucose (mg/dL) 209 H 416 H (75-99) mg/dL 07/08/21 Range/Units 11:35 MCV (80.0-97.0) fL MCH (27.0-32.0) pg MCHC (32.0-37.0) g/dL Plt Count (140-440) X 10*3/uL MPV (9.5-12.2) fL Immature Gran # (0.00-0.04) X 10*3/uL Lymphocytes # (0.90-5.00) X 10*3/uL Eosinophils # (0.04-0.35) X 10*3/uL Chloride (96-109) mmol/L Carbon Dioxide (21.6-31.8) mmol/L Anion Gap (4.00-12.00) mmol/L BUN/Creatinine Ratio (12.00-20.00) Ratio Glucose (70-110) mg/dL POC Glucose (mg/dL) 386 H (75-99) mg/dL Assessment and Plan Plan: #1. Acute exacerbation of chronic obstructive pulmonary disease, no evidence of acute pulmonary process on the chest x-ray, COVID 19 PCR was negative, patient is status post completed COVID-19 vaccination. She continues to the BiPAP dependent. She remains bronchospastic and wheezy. She is currently on a BiPAP of 12/60 cm of water and FiO2 of 40%. She has chronic hypercapnic respiratory failure. She has developed metabolic alkalosis. She remains increasingly anxious. She was diuresed yesterday. She is a negative fluid balance. Offered to take her off the BiPAP. The patient declined and she wants to stay on the BiPAP for now as the patient feels that she is in need of this treatment and she is unable to breathe without the noninvasive positive pressure ventilator. Her chest x-ray from today is not showing any acute abnormalities. #2. Stage IV metastatic breast cancer, status post bilateral mastectomy and oophorectomy, patient follows at the [facility] for her cancer care, she is currently on Ibrance and Foslodex, last treatment was 06/26/2021 #3. History of COPD, on home oxygen, usually wears 2 L on a regular basis, baseline FEV1 is 37% of predicted #4. History of chronic tobacco dependence #5. Hypertension #6. Depression #7. History of Alysha syndrome #8. Acute on chronic hypoxic and hypercapnic respiratory failure related to acute exacerbation of COPD, chest x-ray showed right midlung density, with possibility of atelectasis, CTA chest showed no evidence of pulmonary embolism, lung windows were clear, no mediastinal or hilar adenopathy. She was placed on BiPAP support on which she remains with pressures of 12 and 6 and FiO2 has been drop down to 40% #9 oropharyngeal candidiasis currently on fluconazole Plan: Continue BiPAP support, likely with pressures of 12 and 6 and FiO2 of 50% clinically seems to be breathing a bit easier Still BiPap dependent, but work of breathing seems to have improved, no use of accessory muscles Continue IV steroids, continue antibiotic's, Continue nebulized bronchodilators The plan is to try the patient on nasal cannula at a later stage. If she is willing, we'll try her on a high flow nasal cannula. Meanwhile, the blood sugar is quite elevated and this is probably related to steroid-induced hyperglycemia. We'll start the patient on Levemir insulin 12 units at bedtime in addition to sinus scale coverage. This will given approximately 0.2 units per kilogram of Levemir. A DNR/DNI CODE STATUS. We'll continue to follow.
--- NOTE | 2021-07-08 12:58 | P.PN ---
Subjective Progress Note Date: 07/08/21 HISTORY OF PRESENT ILLNESS 60-year-old female one of Dr. 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 Also patient had abdominal uterine and fallopian metastasis from breast cancer with total hysterectomy. Patient had respiratory failure on and off in the past has been on home O2 she was hospitalized at [facility] over a month ago for COPD excessive patient was treated and done well. Patient developed to have much worsening shortness of breath cough wheezes try outpatient management not successful ended up seen Dr. Devi fleming and had apparently steroid injection along with antibiotics which did not help ended up in the emergency department at [facility] in the afternoon on 06/30/2021. At the time was seen she was quite hypoxic was having inspiratory expiratory wheezes and significant worsening symptoms. Her COVID-19 by PCR was negative chest x-ray showed COPD with right perihilar and chronic atelectasis with scar tissue. She was diagnosed with COPD excessive patient with severe bronchitis started on IV antibiotic along with IV steroids and bronchodilator pulse ox remained to be low require 4 L of O2 to keep pulse ox above 90 percentile. She was hospitalized with above problem. 07/01: Patient is seen today in the emergency center waiting for a [facility] bed. She has been started on IV Solu-Medrol and NovoLog scale will be added. IV fluids will be discontinued. She has been seen by Dr. Saldivar and Pulmicort and Perforomist added. Patient states that she is feeling much better breathing status is improved from yesterday most likely secondary to steroids. She has been afebrile, heart rate 103, blood pressure 124/90, pulse ox 94% on 3 L nasal cannula. Patient voices that she wishes to BE a no code. 07/02: Complaints of worsening shortness of breath this morning. She did have a good evening and did not take evening nebulizer treatment. She has increased shortness of breath the pulse ox is 92% on 4 L nasal cannula but patient states that her breathing is not good this morning. D-dimer ordered as well as chest x-ray and Ativan were ordered by home medicine. Patient verbalizes that she does not want to go on BiPAP. She remains on Solu-Medrol 60 mg IV every 6 hours 07/03: A-Team was called this morning at midnight this patient was found unresponsive with agonal breathing. Patient was placed on BiPAP and woke up shortly after. Pulmonary medicine has added and theophylline, continue Solu- Medrol 60 mg IV every 6 hours, nebulizers, Pulmicort, Perforomist. Chest x-ray from yesterday afternoon revealed persistent thickening within the periphery of the right mid lung currently measuring 1 cm in thickness which is increased from 2019. CT chest is recommended. Neoplasm is not excluded. CT angiogram of the chest revealed no acute pulmonary embolism. Patient has been afebrile, heart rate 100, blood pressure 145/88, respiratory rate 30, pulse ox 88% on BiPAP. R epeat Covid 19 testing ordered. 07/04: Patient currently is on BiPAP chain, for hypercapnic failure, hasn't had any regular meals, she is requesting to restart back her Ativan as she is panicking with the BiPAP in her face. She has no lightheadedness dizziness, has poor sleep, diminished appetite, she is known to have stage IV metastatic breast cancer, with last treatment in June 2021, using a ibrance and folslodex 07/05: Patient is on BiPAP, complaining of dry eye, still not sleeping at night, has daughter at bedside, updated regarding treatment plan, echocardiogram is requested to eval for pulmonary hypertension, vitals are stable, melatonin added on top of when necessary Ativan 07/06: Patient remains on BiPAP which she has been on 24 hours per day with FiO2 50%. She remains on IV steroids and nebulizer treatments, Pulmicort, and theophylline. The patient is requesting that Ativan be increased to 1 mg which we will do 07/07: Patient continues to have respiratory difficulty, and remains on bipap ATC. Pulse ox 93% on FiO2 50%. Patient is more sedated today and Ativan will be decreased to 0.5 mg but increased frequency to qid. Patient has been afebrile, HR 114, BP 132/92. CBG 154-238. 07/08: Patient complains that she did not sleep last night and still having dif ficulty with anxiety. Buspar 10 mg bid added. Also added Diflucan for thrush and added cardiac monitoring due to interaction with medication that could increase QT prolongation.patient remains on BiPAP around the clock. Pulse ox is 89% on 50% FiO2. She's been afebrile, heart rate 107, blood pressure 150/82. Blood sugar jumped up to 416 and 386 for which scheduled NovoLog will be added. REVIEW OF SYSTEMS Constitutional: No fever, no chills, no night sweats. Generalized weakness, noted fatigue or lethargy. No daytime sleepiness. EENT: No headache. No blurred vision or double vision, no loss of vision. No loss of Hearing, no ringing in the ears, no dizziness. Significant congestion with no epistaxis no sore throat. Lungs: Positive shortness of breath reported cough reported wheezes. Continued shortness of breath at rest. Cardiovascular: No chest pain, no lower extremity edema. No palpitations. No paroxysmal nocturnal dyspnea. No orthopnea. No lightheadedness or dizziness. No syncopal episodes. Abdominal: No abdominal pain. No nausea, vomiting. No diarrhea. No constipation. No bloody or tarry stools.. No loss of appetite. Genitourinary: No dysuria, increased frequency, urgency. No urinary retention. Musculoskeletal: No myalgias. No muscle weakness, no gait dysfunction, no frequent falls. No back pain. No neck pain. Integumentary: No wounds, no lesions. No rash or pruritus. No unusual bruising. No change in hair or nails. Neurologic: No aphasia. No facial droop. No change in mentation. No head injury. No headache. No paralysis. No paresthesia. Psychiatric: No depression. Reports anxiety. No mood swings. Endocrine: No abnormal blood sugars. PHYSICAL EXAMINATION Gen: This is a 60-year-old laying in bed look in minimal respiratory distress at rest. HEENT: Head is atraumatic, normocephalic. Pupils equal, round. Sclerae is anicteric. NECK: Supple. No JVD. No lymphadenopathy. No thyromegaly. LUNGS: Decreased breath sounds bilateral rhonchi positive inspiratory expiratory wheezes. Noted accessory muscle usage and intercostal retractions. HEART: Regular rate and rhythm. No murmur. ABDOMEN: Soft. Bowel sounds are present. No masses. No tenderness. EXTREMITIES: No pedal edema. No calf tenderness. NEUROLOGICAL: Patient is awake, alert and oriented x3. Cranial nerves 2 through 12 are grossly intact. Generalized significant weakness and significant gener alized weakness. ASSESSMENT AND PLAN 1. Acute on chronic hypoxic respiratory failure: Combination of COPD exacerbation or never get an along with severe bronchitis. Continue O2 on BiPAP, Solu-Medrol 60 mg IV every 6 hours, DuoNeb treatments every 4 hours scheduled and as needed, azithromycin 250 mg daily, Pulmicort 1 mg twice daily, Perforomist twice daily, theophylline 300 mg at bedtime. Pulmonary consult appresicated. Chest x-ray and CTA as above. Covid 19 testing repeated was negative. 2. COPD exacerbation With worsening symptoms, continue patient on IV steroid, continue DuoNeb along with Pulmicort. 3. Severe purulent tracheal bronchitis: Continue patient on antibiotic she received 1 dose of Rocephin, continue azithromycin 250 mg a day. 4. Advance breast cancer with lung metastasis: Still seen oncology still on immune oh therapy. 5. hypertension: Patient has been on amlodipine 10 mg a day continue medication. 6. Recurrent depression: Continue patient on Abilify total of 2 mg twice a day along with lorazepam and Effexor. 7. Hyperglycemia. 2 steroids. Continue Accu-Chek with sliding scales coverage and add NovoLog 5 units with meals. 8. GI prophylaxis: Patient will be on pantoprazole 40 mg daily. 9. DVT prophylaxis: Patient will be on heparin subcutaneous. 10. Dry mouth. Mouthkote qid. 11. General anxiety disorder. Ativan 0.5 mg qid, add BuSpar 10 mg twice daily. 12. Oral thrush. Patient started on Diflucan 100 mg daily. 13. CODE STATUS: No code. 14. COVID-19 testing negative. DISCHARGE PLAN Home Impression and plan of care have been directed as dictated by the signing physician. Arleen Gamez nurse practitioner acting as scribe for signing physician. Objective - Vital Signs Vital signs: Vital Signs Temp 97.6 F 07/08/21 08:00 Pulse 107 H 07/08/21 08:00 Resp 20 07/08/21 08:00 BP 150/82 07/08/21 08:00 Pulse Ox 89 L 07/08/21 08:00 Intake & Output 07/07/21 07/08/21 07/08/21 18:59 06:59 18:59 Intake Total 800 Output Total 800 480 Balance 0 -480 Intake: Oral 800 Output: Urine 800 480 Other: Voiding Method External Catheter External Catheter # Bowel Movements 0 - Labs CBC & Chem 7: 07/08/21 05:31 07/08/21 05:31 Labs: Abnormal Lab Results - Last 24 Hours (Table) 07/07/21 07/07/21 07/07/21 Range/Units 11:40 17:03 20:49 POC Glucose (mg/dL) 238 H 182 H 187 H (75-99) mg/dL 07/08/21 Range/Units 06:50 POC Glucose (mg/dL) 209 H (75-99) mg/dL
[2021-07-08 16:23] LABS: Glucose,Whole Blood 166 mg/dL (75-99)
[2021-07-08 20:05] LABS: Glucose,Whole Blood 291 mg/dL (75-99)
[2021-07-08] MEDS: THEOPHYLLINE 24 HOUR 300 MG CAP.ER.24H PO SCH ×2 (20:13→22:05)
[2021-07-08] MEDS ORDERED: INSULIN DETEMIR (LEVEMIR) 100 UNIT/ML SYR SQ SCH (21:00)
[2021-07-09] MEDS: IPRATROPIUM-ALBUTEROL 3 ML NEB INHALATION SCH ×6 (01:09→21:21)
[2021-07-09] MEDS: LORazepam 0.5 MG TAB PO SCH ×5 (01:54→22:11)
[2021-07-09] MEDS: methylPREDNISolone SOD SUCCI 125 MG/2 ML VIAL IV SCH ×4 (04:43→22:11)
[2021-07-09 07:04] LABS: Glucose,Whole Blood 267 mg/dL (75-99)
[2021-07-09] MEDS: busPIRone HCl 10 MG TAB PO SCH ×2 (08:01→22:11)
[2021-07-09] MEDS: PANTOPRAZOLE 40 MG TABLET PO SCH (08:01)
[2021-07-09] MEDS: ENOXAPARIN 40 MG/0.4 ML SYRINGE SQ SCH (08:01)
[2021-07-09] MEDS: FLUCONAZOLE 100 MG TAB PO SCH (08:01)
[2021-07-09] MEDS: INSULIN ASPART (NovoLOG) 100 UNIT/ML VIAL SQ SCH ×7 (08:02→22:12)
[2021-07-09] MEDS: ARIPiprazole 2 MG TAB PO SCH ×2 (08:03→22:11)
[2021-07-09] MEDS: DRY MOUTH SPRAY 44.3 SPRAY/44.3 ML SPRAY MUCOUS MEM SCH ×4 (08:06→22:13)
[2021-07-09] MEDS: ARTIFICIAL TEARS-HYPROMELLOSE DROPS 15 ML BTL BOTH EYES SCH ×3 (08:06→22:13)
[2021-07-09] MEDS: VENLAFAXINE HCL ER 150 MG CAP PO SCH (08:11)
[2021-07-09] MEDS: BUDESONIDE 1 MG/2 ML NEBU INHALATION SCH ×2 (08:27→21:21)
[2021-07-09] MEDS: FORMOTEROL FUMARATE 20 MCG/2 ML NEBU INHALATION SCH ×2 (08:28→21:21)
--- NOTE | 2021-07-09 10:02 | P.PN ---
Subjective Progress Note Date: 07/09/21 HISTORY OF PRESENT ILLNESS 60-year-old female one of Dr. 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 Also patient had abdominal uterine and fallopian metastasis from breast cancer with total hysterectomy. Patient had respiratory failure on and off in the past has been on home O2 she was hospitalized at [facility] over a month ago for COPD excessive patient was treated and done well. Patient developed to have much worsening shortness of breath cough wheezes try outpatient management not successful ended up seen Dr. Devi fleming and had apparently steroid injection along with antibiotics which did not help ended up in the emergency department at [facility] in the afternoon on 06/30/2021. At the time was seen she was quite hypoxic was having inspiratory expiratory wheezes and significant worsening symptoms. Her COVID-19 by PCR was negative chest x-ray showed COPD with right perihilar and chronic atelectasis with scar tissue. She was diagnosed with COPD excessive patient with severe bronchitis started on IV antibiotic along with IV steroids and bronchodilator pulse ox remained to be low require 4 L of O2 to keep pulse ox above 90 percentile. She was hospitalized with above problem. 07/01: Patient is seen today in the emergency center waiting for a [facility] bed. She has been started on IV Solu-Medrol and NovoLog scale will be added. IV fluids will be discontinued. She has been seen by Dr. Saldivar and Pulmicort and Perforomist added. Patient states that she is feeling much better breathing status is improved from yesterday most likely secondary to steroids. She has been afebrile, heart rate 103, blood pressure 124/90, pulse ox 94% on 3 L nasal cannula. Patient voices that she wishes to BE a no code. 07/02: Complaints of worsening shortness of breath this morning. She did have a good evening and did not take evening nebulizer treatment. She has increased shortness of breath the pulse ox is 92% on 4 L nasal cannula but patient states that her breathing is not good this morning. D-dimer ordered as well as chest x-ray and Ativan were ordered by home medicine. Patient verbalizes that she does not want to go on BiPAP. She remains on Solu-Medrol 60 mg IV every 6 hours 07/03: A-Team was called this morning at midnight this patient was found unresponsive with agonal breathing. Patient was placed on BiPAP and woke up shortly after. Pulmonary medicine has added and theophylline, continue Solu- Medrol 60 mg IV every 6 hours, nebulizers, Pulmicort, Perforomist. Chest x-ray from yesterday afternoon revealed persistent thickening within the periphery of the right mid lung currently measuring 1 cm in thickness which is increased from 2019. CT chest is recommended. Neoplasm is not excluded. CT angiogram of the chest revealed no acute pulmonary embolism. Patient has been afebrile, heart rate 100, blood pressure 145/88, respiratory rate 30, pulse ox 88% on BiPAP. R epeat Covid 19 testing ordered. 07/04: Patient currently is on BiPAP chain, for hypercapnic failure, hasn't had any regular meals, she is requesting to restart back her Ativan as she is panicking with the BiPAP in her face. She has no lightheadedness dizziness, has poor sleep, diminished appetite, she is known to have stage IV metastatic breast cancer, with last treatment in June 2021, using a ibrance and folslodex 07/05: Patient is on BiPAP, complaining of dry eye, still not sleeping at night, has daughter at bedside, updated regarding treatment plan, echocardiogram is requested to eval for pulmonary hypertension, vitals are stable, melatonin added on top of when necessary Ativan 07/06: Patient remains on BiPAP which she has been on 24 hours per day with FiO2 50%. She remains on IV steroids and nebulizer treatments, Pulmicort, and theophylline. The patient is requesting that Ativan be increased to 1 mg which we will do 07/07: Patient continues to have respiratory difficulty, and remains on bipap ATC. Pulse ox 93% on FiO2 50%. Patient is more sedated today and Ativan will be decreased to 0.5 mg but increased frequency to qid. Patient has been afebrile, HR 114, BP 132/92. CBG 154-238. 07/08: Patient complains that she did not sleep last night and still having dif ficulty with anxiety. Buspar 10 mg bid added. Also added Diflucan for thrush and added cardiac monitoring due to interaction with medication that could increase QT prolongation.patient remains on BiPAP around the clock. Pulse ox is 89% on 50% FiO2. She's been afebrile, heart rate 107, blood pressure 150/82. Blood sugar jumped up to 416 and 386 for which scheduled NovoLog will be added. 07/09: Patient is now on high flow nasal cannula at 10 L with pulse ox of 93%. She's been afebrile, heart rate in the low 100s, blood pressure 117/72. Blood sugars showed improvement with changes made to insulins with blood sugars running between 166 and 267. She does not have history of diabetes but will most likely require medication at discharge due to steroids. She appears to be more comfortable today. She states she has a little cough. Incentive spirometry will be added. REVIEW OF SYSTEMS Constitutional: No fever, no chills, no night sweats. Generalized weakness, noted fatigue or lethargy. No daytime sleepiness. EENT: No headache. No blurred vision or double vision, no loss of vision. No loss of Hearing, no ringing in the ears, no dizziness. No epistaxis no sore throat. Lungs: Positive shortness of breath reported cough reported wheezes. Continued shortness of breath at rest, improving. Cardiovascular: No chest pain, no lower extremity edema. No palpitations. No paroxysmal nocturnal dyspnea. No orthopnea. No lightheadedness or dizziness. No syncopal episodes. Abdominal: No abdominal pain. No nausea, vomiting. No diarrhea. No constipati on. No bloody or tarry stools.. No loss of appetite. Genitourinary: No dysuria, increased frequency, urgency. No urinary retention. Musculoskeletal: No myalgias. No muscle weakness, no gait dysfunction, no frequent falls. No back pain. No neck pain. Integumentary: No wounds, no lesions. No rash or pruritus. No unusual bruising. No change in hair or nails. Neurologic: No aphasia. No facial droop. No change in mentation. No head injury. No headache. No paralysis. No paresthesia. Psychiatric: No depression. Reports anxiety. No mood swings. Endocrine: Noted abnormal blood sugars. PHYSICAL EXAMINATION Gen: This is a 60-year-old laying in bed currently on nasal cannula oxygen. HEENT: Head is atraumatic, normocephalic. Pupils equal, round. Sclerae is anicteric. NECK: Supple. No JVD. No lymphadenopathy. No thyromegaly. LUNGS: Decreased breath sounds bilateral rhonchi positive inspiratory expiratory wheezes. Noted mild accessory muscle usage and intercostal retractions. HEART: Regular rate and rhythm. No murmur. ABDOMEN: Soft. Bowel sounds are present. No masses. No tenderness. EXTREMITIES: No pedal edema. No calf tenderness. NEUROLOGICAL: Patient is awake, alert and oriented x3. Cranial nerves 2 through 12 are grossly intact. Generalized significant weakness and significant generalized weakness. ASSESSMENT AND PLAN 1. Acute on chronic hypoxic respiratory failure: Combination of COPD exacerbation or never get an along with severe bronchitis. Continue O2 on BiPAP, Solu-Medrol 60 mg IV every 6 hours, DuoNeb treatments every 4 hours scheduled and as needed, azithromycin 250 mg daily, Pulmicort 1 mg twice daily, Perforomist twice daily, theophylline 300 mg at bedtime. Pulmonary consult appresicated. Chest x-ray and CTA as above. Covid 19 testing repeated was negative. 2. COPD exacerbation With worsening symptoms, continue patient on IV steroid, continue DuoNeb along with Pulmicort. 3. Severe purulent tracheal bronchitis: Continue patient on antibiotic she received 1 dose of Rocephin, continue azithromycin 250 mg a day. 4. Advance breast cancer with lung metastasis: Still seen oncology still on immune oh therapy. 5. hypertension: Patient has been on amlodipine 10 mg a day continue medication. 6. Recurrent depression: Continue patient on Abilify total of 2 mg twice a day along with lorazepam and Effexor. 7. Hyperglycemia secondary 2 steroids. Continue Accu-Chek with sliding scales coverage and add NovoLog 5 units with meals and also pulmonary added Levemir 13 units. 8. GI prophylaxis: Patient will be on pantoprazole 40 mg daily. 9. DVT prophylaxis: Patient will be on heparin subcutaneous. 10. Dry mouth. Mouthkote qid. 11. General anxiety disorder. Ativan 0.5 mg qid, add BuSpar 10 mg twice daily. 12. Oral thrush. Patient started on Diflucan 100 mg daily. 13. CODE STATUS: No code. 14. COVID-19 testing negative. DISCHARGE PLAN Home Impression and plan of care have been directed as dictated by the signing physician. Arleen Gamez nurse practitioner acting as scribe for signing physician. Objective - Vital Signs Vital signs: Vital Signs Temp 97.5 F L 07/09/21 07:53 Pulse 106 H 07/09/21 08:46 Resp 18 07/09/21 07:53 BP 117/72 07/09/21 07:53 Pulse Ox 93 L 07/09/21 08:31 Intake & Output 07/08/21 07/09/21 07/09/21 18:59 06:59 18:59 Output Total 400 400 Balance -400 -400 Output: Urine 400 400 Other: Voiding Method External Catheter External Catheter - Labs CBC & Chem 7: 07/08/21 05:31 07/08/21 05:31 Labs: Abnormal Lab Results - Last 24 Hours (Table) 07/08/21 07/08/21 07/08/21 Range/Units 05:31 05:31 11:19 MCV 104.8 H (80.0-97.0) fL MCH 32.9 H (27.0-32.0) pg MCHC 31.3 L (32.0-37.0) g/dL Plt Count 453 H (140-440) X 10*3/uL MPV 8.8 L (9.5-12.2) fL Immature Gran # 0.07 H (0.00-0.04) X 10*3/uL Lymphocytes # 0.29 L (0.90-5.00) X 10*3/uL Eosinophils # 0 L (0.04-0.35) X 10*3/uL Chloride 87 L (96-109) mmol/L Carbon Dioxide 39.5 H (21.6-31.8) mmol/L Anion Gap 12.60 H (4.00-12.00) mmol/L BUN/Creatinine Ratio 33.44 H (12.00-20.00) Ratio Glucose 189 H (70-110) mg/dL POC Glucose (mg/dL) 416 H (75-99) mg/dL 07/08/21 07/08/21 07/08/21 Range/Units 11:35 16:19 20:03 MCV (80.0-97.0) fL MCH (27.0-32.0) pg MCHC (32.0-37.0) g/dL Plt Count (140-440) X 10*3/uL MPV (9.5-12.2) fL Immature Gran # (0.00-0.04) X 10*3/uL Lymphocytes # (0.90-5.00) X 10*3/uL Eosinophils # (0.04-0.35) X 10*3/uL Chloride (96-109) mmol/L Carbon Dioxide (21.6-31.8) mmol/L Anion Gap (4.00-12.00) mmol/L BUN/Creatinine Ratio (12.00-20.00) Ratio Glucose (70-110) mg/dL POC Glucose (mg/dL) 386 H 166 H 291 H (75-99) mg/dL 07/09/21 Range/Units 06:45 MCV (80.0-97.0) fL MCH (27.0-32.0) pg MCHC (32.0-37.0) g/dL Plt Count (140-440) X 10*3/uL MPV (9.5-12.2) fL Immature Gran # (0.00-0.04) X 10*3/uL Lymphocytes # (0.90-5.00) X 10*3/uL Eosinophils # (0.04-0.35) X 10*3/uL Chloride (96-109) mmol/L Carbon Dioxide (21.6-31.8) mmol/L Anion Gap (4.00-12.00) mmol/L BUN/Creatinine Ratio (12.00-20.00) Ratio Glucose (70-110) mg/dL POC Glucose (mg/dL) 267 H (75-99) mg/dL
[2021-07-09 11:26] LABS: Glucose,Whole Blood 348 mg/dL (75-99)
[2021-07-09] MEDS: SENNOSIDES-DOCUSATE SODIUM 1 EACH TAB PO SCH (11:41)
[2021-07-09] MEDS ORDERED: FUROSEMIDE 10 MG/ML 4 ML VIAL IV STA (15:59)
--- NOTE | 2021-07-09 16:04 | P.PN ---
Subjective Progress Note Date: 07/09/21 This is a 57-year-old white female patient with past medical history of severe COPD, stage IV metastatic breast cancer most recently patient was on Ibrance and Foslodex ( last treatment was on June 26, 2021) patient follows at the [facility] for her breast cancer care, with previous radiation therapy, hypertension, hyperlipidemia, depression, anxiety. Patient is status post bilateral mastectomy and oophorectomy at the [facility]. Patient presented to the emergency department on 06/30/2021 for evaluation of increased cough, and dyspnea and this has been going on since Tuesday. She went to see Dr. Azevedo in the office and was given a steroid injection, she has not improved, she denies any fever or chills, she has been vaccinated against coronavirus. Her cough is mostly nonproductive, no complaints of central chest pain, swelling or pain. Her chest x-ray shows COPD with right perihilar chronic atelectasis or scarring, based on comparison to previous images. COVID-19 PCR was negative, lab work was reviewed, white blood cell count was normal at 4.3, hemoglobin was 12.12, correlation profile was within normal limits, sodium is 134, potassium is 4.3, chloride is 93, CO2 32, BUN is 9, creatinine 0.49, LFTs were within normal limits. Patient was started on empiric antibiotics, IV steroids and bronchodilators, and we were asked to see the patient consultation. This morning she seen resting on a gurney in the emergency department, she is awaiting a bed on the medical surgical unit, vital signs are stable, she is in sinus mechanism with a rate of 107, pulse ox is 91% on 4 L, patient usually wears 2 L on a regular basis. On 07/02/2021 patient seen in follow-up on the medical surgical floor, patient thinks that her breathing is worse today, she is very tight bronchospastic very short of breath, she is on 4 L of oxygen pulse ox of 92-94%. Afebrile, hemod ynamically she is stable, she is on IV Solu-Medrol 60 mg every 8 hours, she is on Pulmicort and Perforomist, is on antibiotics. She's had no fever or chills, she tested negative for COVID-19. Repeat chest x-ray was obtained showing persistent thickening within the periphery of the right lung, small right pleural effusion. Her pro-calcitonin was negative on admission is 0.09, blood cell count is normal at 4.3, hemoglobin was 12.2, was no evidence of fluid overload. He is bringing up some yellowish colored sputum, she is on azithromycin for antibiotic coverage. No swelling in lower extremities. She is receiving when necessary Ativan for anxiety. On today's evaluation on 07/03/2021 patient is seen in follow-up. Overnight her breathing continued to worsen, patient was quite bronchospastic last night, with labored breathing, and did become less responsive. Rapid response team was aranza led, blood gas was obtained showing pO2 of 288, pCO2 of greater than 120, pH of 7.06. Patient was placed on BiPAP support with pressures of 12 and 5 and FiO2 of 100%, FiO2 has since been dropped down to 40%. This morning she remains on BiPAP support, she started to wake up, to provide some basic answers, although is she still very dyspneic to talk in sentences. Sounds are positive for diffuse wheezes. Yesterday's chest x-ray noted a persistent density within the periphery of the right midlung, with a consideration for atelectasis. Underlying mass could not be completely excluded. CTA chest was obtained last night going no evidence of pulmonary embolism, spinal or hilar adenopathy by CT criteria, lung windows were clear. Vision is maximized on medical treatment, she remains on IV Solu-Medrol 60 mg every 6 hours, azithromycin, Pulmicort, Perforomist, DuoNeb, yesterday we added aspirin 300 mg at bedtime. Her pro calcitonin level was negative this admission 0.09, COVID-19 PCR was negative, yesterday's blood work was fairly unremarkable, d-dimer was -0.56. On 07/05/2021 patient seen in follow-up on medical surgical floor. She remains on BiPAP support, she is of 12 and 6 and FiO2 of 50%, pulse ox is 89%, her follow up ABGs from yesterday was improving, with pH of 7.32, pCO2 of 94, and pO2 of 191, this was done 100% FiO2 which had since been dropped to 50%. Patient is currently maximized on medical treatment, she is on IV steroids with Solu-Medrol 60 g every 6 hours, she is on nebulized bronchodilators, She is on theophylline, she is on empiric antibiotics. Still very dyspneic, tight and wheezy. Not coughing any phlegm up. No chest pain. CT angiogram of chest show ed no evidence of pulmonary embolism. Patient is very anxious as well, she's been getting as needed doses of Ativan. GI and DVT prophylaxis. overall much more awake, and responsive. On 07/06/2021 patient seen in follow-up on medical surgical floor, she currently remains on BiPAP with pressures of 12 and 6 on FiO2 of 50%. Any attempt to switch her to high flow nasal cannula was unsuccessful and the patient quickly desaturates down to low 80s and becomes very dyspneic. She has however moving better air on today's exam, still has diffuse wheezes, but there is better air entry noted bilaterally, breathing slightly better, patient is maximized on medical treatment including IV steroids, nebulized bronchodilators. She is on Pulmicort, Perforomist, DuoNeb, she remains on theophylline, Ativan has been increased to 1 mg 3 times a day for episodes of anxiety. Today's labs have been reviewed, no evidence of leukocytosis, white blood cell count is 7.16, hemoglobin is 12.5, CO2 is 38, chloride is 88, BUN is 16 and creatinine 0.[address] electrolytes are fairly unremarkable. No fever or chills. On 07/07/2021 patient seen in follow-up on medical surgical floor, she remains on BiPAP with pressures of 12 and 6 and FiO2 of 50%, she is awake and alert, she responds to verbal questions, seems to be breathing better, still has diffuse wheezes, but seems to be achieving good volumes up to 500 mL on the BiPAP support. On today's evaluation patient also had some scattered crackles at the bilateral bases. IV fluids have been discontinued, overall she is in -600 mL net fluid balance, she has not been able to take in much by mouth secondary to being BiPAP dependent, her daughter is at the bedside, she states her mother has not been able to eat any meals, however she has been drinking nutritional supplements. Patient continues on nebulized bronchodilators, she is on IV steroids with Solu-Medrol 60 mg every 6 hours, she is on theophylline, and she is receiving lorazepam 0.5 mg 4 times daily on a scheduled basis for anxiety. Echocardiogram showed preserved LV function with no significant valvular dysfunction, there was no aortic stenosis or regurgitation, mild mitral regurgi tation, mild tricuspid regurgitation, right-sided pressures were less than 35 mmHg. 07/08/2021, the patient remains on bicarbonate essentially the same setting of 6 with an FiO2 of 40%. Her pulse ox is around 8900 monitor. She is anxious and is a bit Desmond Kercher generating tidal volume 400 range while on the BiPAP and her respiratory rate is around 25. She is anxious and she wants BiPAP on. She feels that she cannot tolerate off the BiPAP. No chest pain. She was given a dose of Lasix yesterday and the patient responded to the diuretics and the patient has been a negative fluid balance 600 mL over the past 24 hours. Meanwhile, the patient continues to be on DuoNeb nebulized treatments around the clock, she remains on IV Solu Medrol 60 mg every 6 hours. Echocardiogram showed a preserved LV function. No significant valvular abnormality. No significant pulmonary hypertension. No major edema lower extremities. Her anxiety levels remain quite high and the patient is receiving Ativan on an as-needed basis. The patient has a white cell count of 6.9 with a hemoglobin of 13.6, BUN is at 20 with a creatinine 0.6, serum bicarb is at 39 and a glucose and currently is at 386. Regards her blood sugar control, the patient is receiving insulin sliding scale coverage. She is also on Lovenox 40 mg subcu for DVT prophylaxis. She is on clonidine patch for blood pressure control patient is also on Diflucan 100 mg by mouth daily for oropharyngeal candidiasis. 07/09/2021, the patient was taken off the BiPAP and she was given a dose of Lasix yesterday and her fluid balance is -800 disease over the past 24 hours. The patient is currently on oxygen at night liters and her pulse ox is around 94-95%. She still using the BiPAP on and off. She is glad that she is off the BiPAP. Her breathing is improved considerably since yesterday. She remains on a IV Solu-Medrol. She remains on bronchodilators [id number] is taking Lovenox 40 mg for DVT prophylaxis. She is on Diflucan 100 mg for oropharyngeal candidiasis. Blood work from today shows some hyperglycemia. No other labs are available from today her last will be repeated tomorrow. Her last chest x-ray is from yesterday and it showed no significant abnormalities. There was some pleural thickening and small effusion on the right. She is awake and alert. No signs of any CO2 narcosis at this point in time. She is using incentive spirometer. Objective - Vital Signs Vital signs: Vital Signs Temp 97.6 F 07/09/21 14:00 Pulse 111 H 07/09/21 15:16 Resp 18 07/09/21 14:00 BP 140/87 07/09/21 14:00 Pulse Ox 96 07/09/21 15:08 Intake & Output 07/08/21 07/09/21 07/09/21 18:59 06:59 18:59 Output Total 400 400 650 Balance -400 -400 -650 Weight 67.132 kg Output: Urine 400 400 650 Other: Voiding Method External Catheter External Catheter External Catheter - Exam GENERAL EXAM: Awake and responsive, quite dyspneic , 60-year-old white female, entry on 9 L, her breathing is less labored. She is off the BiPAP. HEAD: Normocephalic/atraumatic. EYES: Normal reaction of pupils, equal size. Conjunctiva pink, sclera white. NOSE: Clear with pink turbinates. THROAT: No erythema or exudates. NECK: No masses, no JVD, no thyroid enlargement, no adenopathy. CHEST: No chest wall deformity. Symmetrical expansion. LUNGS: diminished breath sounds bilaterally diffuse wheezes, diffuse improved air entry bilaterally, and there is some crackles at bilateral bases CVS: Regular rate and rhythm, normal S1 and S2, no gallops, no murmurs, no rubs ABDOMEN: Soft, nontender. No hepatosplenomegaly, normal bowel sounds, no guarding or rigidity. EXTREMITIES: No clubbing, no edema, no cyanosis, 2+ pulses and upper and lower extremities. MUSCULOSKELETAL: Muscle strength and tone normal. SPINE: No scoliosis or deformity SKIN: No rashes CENTRAL NERVOUS SYSTEM: Alert and oriented -3. No focal deficits, tone is normal in all 4 extremities. PSYCHIATRIC: Alert and oriented -3. Appropriate affect. Intact judgment and insight. - Labs CBC & Chem 7: 07/08/21 05:31 07/08/21 05:31 Labs: Abnormal Lab Results - Last 24 Hours (Table) 07/08/21 07/08/2121 Range/Units 16:19 20:03 06:45 POC Glucose (mg/dL) 166 H 291 H 267 H (75-99) mg/dL 07/09/21 Range/Units 11:17 POC Glucose (mg/dL) 348 H (75-99) mg/dL Assessment and Plan Plan: #1. Acute exacerbation of chronic obstructive pulmonary disease, no evidence of acute pulmonary process on the chest x-ray, COVID 19 PCR was negative, patient i s status post completed COVID-19 vaccination. The patient is currently off the BiPAP. The patient is currently on 9 L of oxygen by nasal cannula. She is improving and she is less short of breath and her breathing is less labored. She responded to bronchodilators, steroids and diuretics. She is using incentive spirometer. #2. Stage IV metastatic breast cancer, status post bilateral mastectomy and oophorectomy, patient follows at the [facility] for her cancer care, she is currently on Ibrance and Foslodex, last treatment was 06/26/2021 #3. History of COPD, on home oxygen, usually wears 2 L on a regular basis, baseline FEV1 is 37% of predicted #4. History of chronic tobacco dependence #5. Hypertension #6. Depression #7. History of Alysha syndrome #8. Acute on chronic hypoxic and hypercapnic respiratory failure related to acute exacerbation of COPD, chest x-ray showed right midlung density, with possibility of atelectasis, CTA chest showed no evidence of pulmonary embolism, lung windows were clear, no mediastinal or hilar adenopathy. She was placed on BiPAP support on which she remains with pressures of 12 and 6 and FiO2 has been drop down to 40% #9 oropharyngeal candidiasis currently on fluconazole #10 steroid-induced hyperglycemia. Plan: Continue the use of BiPAP on and off during the day and at nighttime if needed. Wean down FiO2 to maintain a saturation above 90% Continue using the incentive spirometer Given additional dose of Lasix 40 mg IV push Continue IV steroids, continue antibiotic's, Continue nebulized bronchodilators The plan is to try the patient on nasal cannula at a later stage. If she is willing, we'll try her on a high flow nasal cannula. Meanwhile, the blood sugar is quite elevated and this is probably related to steroid-induced hyperglycemia. He is the Levemir dose up to 20 units at bedtime and continue monitoring her blood sugars. Continue IVsolu Medrol for another 24 hours. A DNR/DNI CODE STATUS. We'll continue to follow.
[2021-07-09 16:49] LABS: Glucose,Whole Blood 209 mg/dL (75-99)
[2021-07-09 20:18] LABS: Glucose,Whole Blood 64 mg/dL (75-99)
[2021-07-09 21:10] LABS: Glucose,Whole Blood 188 mg/dL (75-99)
[2021-07-09] MEDS: THEOPHYLLINE 24 HOUR 300 MG CAP.ER.24H PO SCH (22:10)
[2021-07-09] MEDS: INSULIN DETEMIR (LEVEMIR) 100 UNIT/ML SYR SQ SCH (22:13)
[2021-07-10] MEDS: IPRATROPIUM-ALBUTEROL 3 ML NEB INHALATION SCH ×6 (01:05→19:53)
[2021-07-10 01:50] LABS: Glucose,Whole Blood 162 mg/dL (75-99)
[2021-07-10] MEDS: methylPREDNISolone SOD SUCCI 125 MG/2 ML VIAL IV SCH ×4 (04:40→21:03)
[2021-07-10 06:58] LABS: Glucose,Whole Blood 237 mg/dL (75-99)
[2021-07-10] MEDS: busPIRone HCl 10 MG TAB PO SCH ×2 (07:43→21:04)
[2021-07-10] MEDS: ENOXAPARIN 40 MG/0.4 ML SYRINGE SQ SCH (07:43)
[2021-07-10] MEDS: FLUCONAZOLE 100 MG TAB PO SCH (07:43)
[2021-07-10] MEDS: VENLAFAXINE HCL ER 150 MG CAP PO SCH (07:43)
[2021-07-10] MEDS: INSULIN ASPART (NovoLOG) 100 UNIT/ML VIAL SQ SCH ×6 (07:43→21:04)
[2021-07-10] MEDS: PANTOPRAZOLE 40 MG TABLET PO SCH (07:43)
[2021-07-10] MEDS: SENNOSIDES-DOCUSATE SODIUM 1 EACH TAB PO SCH (07:43)
[2021-07-10] MEDS: LORazepam 0.5 MG TAB PO SCH ×4 (07:43→21:04)
[2021-07-10] MEDS: ARIPiprazole 2 MG TAB PO SCH ×2 (07:44→21:04)
[2021-07-10] MEDS: ARTIFICIAL TEARS-HYPROMELLOSE DROPS 15 ML BTL BOTH EYES SCH ×3 (07:45→21:05)
[2021-07-10] MEDS: DRY MOUTH SPRAY 44.3 SPRAY/44.3 ML SPRAY MUCOUS MEM SCH ×4 (07:45→21:06)
[2021-07-10] MEDS: FORMOTEROL FUMARATE 20 MCG/2 ML NEBU INHALATION SCH ×2 (08:16→19:53)
[2021-07-10] MEDS: BUDESONIDE 1 MG/2 ML NEBU INHALATION SCH ×2 (08:16→19:53)
[2021-07-10 11:01] LABS: Glucose,Whole Blood 273 mg/dL (75-99)
[2021-07-10] MEDS ORDERED: FUROSEMIDE 10 MG/ML 4 ML VIAL IV STA (11:23)
--- NOTE | 2021-07-10 11:23 | P.PN ---
Subjective Progress Note Date: 07/10/21 This is a 57-year-old white female patient with past medical history of severe COPD, stage IV metastatic breast cancer most recently patient was on Ibrance and Foslodex ( last treatment was on June 26, 2021) patient follows at the [facility] for her breast cancer care, with previous radiation therapy, hypertension, hyperlipidemia, depression, anxiety. Patient is status post bilateral mastectomy and oophorectomy at the [facility]. Patient presented to the emergency department on 06/30/2021 for evaluation of increased cough, and dyspnea and this has been going on since Tuesday. She went to see Dr. Azevedo in the office and was given a steroid injection, she has not improved, she denies any fever or chills, she has been vaccinated against coronavirus. Her cough is mostly nonproductive, no complaints of central chest pain, swelling or pain. Her chest x-ray shows COPD with right perihilar chronic atelectasis or scarring, based on comparison to previous images. COVID-19 PCR was negative, lab work was reviewed, white blood cell count was normal at 4.3, hemoglobin was 12.12, correlation profile was within normal limits, sodium is 134, potassium is 4.3, chloride is 93, CO2 32, BUN is 9, creatinine 0.49, LFTs were within normal limits. Patient was started on empiric antibiotics, IV steroids and bronchodilators, and we were asked to see the patient consultation. This morning she seen resting on a gurney in the emergency department, she is awaiting a bed on the medical surgical unit, vital signs are stable, she is in sinus mechanism with a rate of 107, pulse ox is 91% on 4 L, patient usually wears 2 L on a regular basis. On 07/02/2021 patient seen in follow-up on the medical surgical floor, patient thinks that her breathing is worse today, she is very tight bronchospastic very short of breath, she is on 4 L of oxygen pulse ox of 92-94%. Afebrile, hemod ynamically she is stable, she is on IV Solu-Medrol 60 mg every 8 hours, she is on Pulmicort and Perforomist, is on antibiotics. She's had no fever or chills, she tested negative for COVID-19. Repeat chest x-ray was obtained showing persistent thickening within the periphery of the right lung, small right pleural effusion. Her pro-calcitonin was negative on admission is 0.09, blood cell count is normal at 4.3, hemoglobin was 12.2, was no evidence of fluid overload. He is bringing up some yellowish colored sputum, she is on azithromycin for antibiotic coverage. No swelling in lower extremities. She is receiving when necessary Ativan for anxiety. On today's evaluation on 07/03/2021 patient is seen in follow-up. Overnight her breathing continued to worsen, patient was quite bronchospastic last night, with labored breathing, and did become less responsive. Rapid response team was aranza led, blood gas was obtained showing pO2 of 288, pCO2 of greater than 120, pH of 7.06. Patient was placed on BiPAP support with pressures of 12 and 5 and FiO2 of 100%, FiO2 has since been dropped down to 40%. This morning she remains on BiPAP support, she started to wake up, to provide some basic answers, although is she still very dyspneic to talk in sentences. Sounds are positive for diffuse wheezes. Yesterday's chest x-ray noted a persistent density within the periphery of the right midlung, with a consideration for atelectasis. Underlying mass could not be completely excluded. CTA chest was obtained last night going no evidence of pulmonary embolism, spinal or hilar adenopathy by CT criteria, lung windows were clear. Vision is maximized on medical treatment, she remains on IV Solu-Medrol 60 mg every 6 hours, azithromycin, Pulmicort, Perforomist, DuoNeb, yesterday we added aspirin 300 mg at bedtime. Her pro calcitonin level was negative this admission 0.09, COVID-19 PCR was negative, yesterday's blood work was fairly unremarkable, d-dimer was -0.56. On 07/05/2021 patient seen in follow-up on medical surgical floor. She remains on BiPAP support, she is of 12 and 6 and FiO2 of 50%, pulse ox is 89%, her follow up ABGs from yesterday was improving, with pH of 7.32, pCO2 of 94, and pO2 of 191, this was done 100% FiO2 which had since been dropped to 50%. Patient is currently maximized on medical treatment, she is on IV steroids with Solu-Medrol 60 g every 6 hours, she is on nebulized bronchodilators, She is on theophylline, she is on empiric antibiotics. Still very dyspneic, tight and wheezy. Not coughing any phlegm up. No chest pain. CT angiogram of chest show ed no evidence of pulmonary embolism. Patient is very anxious as well, she's been getting as needed doses of Ativan. GI and DVT prophylaxis. overall much more awake, and responsive. On 07/06/2021 patient seen in follow-up on medical surgical floor, she currently remains on BiPAP with pressures of 12 and 6 on FiO2 of 50%. Any attempt to switch her to high flow nasal cannula was unsuccessful and the patient quickly desaturates down to low 80s and becomes very dyspneic. She has however moving better air on today's exam, still has diffuse wheezes, but there is better air entry noted bilaterally, breathing slightly better, patient is maximized on medical treatment including IV steroids, nebulized bronchodilators. She is on Pulmicort, Perforomist, DuoNeb, she remains on theophylline, Ativan has been increased to 1 mg 3 times a day for episodes of anxiety. Today's labs have been reviewed, no evidence of leukocytosis, white blood cell count is 7.16, hemoglobin is 12.5, CO2 is 38, chloride is 88, BUN is 16 and creatinine 0.[address] electrolytes are fairly unremarkable. No fever or chills. On 07/07/2021 patient seen in follow-up on medical surgical floor, she remains on BiPAP with pressures of 12 and 6 and FiO2 of 50%, she is awake and alert, she responds to verbal questions, seems to be breathing better, still has diffuse wheezes, but seems to be achieving good volumes up to 500 mL on the BiPAP support. On today's evaluation patient also had some scattered crackles at the bilateral bases. IV fluids have been discontinued, overall she is in -600 mL net fluid balance, she has not been able to take in much by mouth secondary to being BiPAP dependent, her daughter is at the bedside, she states her mother has not been able to eat any meals, however she has been drinking nutritional supplements. Patient continues on nebulized bronchodilators, she is on IV steroids with Solu-Medrol 60 mg every 6 hours, she is on theophylline, and she is receiving lorazepam 0.5 mg 4 times daily on a scheduled basis for anxiety. Echocardiogram showed preserved LV function with no significant valvular dysfunction, there was no aortic stenosis or regurgitation, mild mitral regurgi tation, mild tricuspid regurgitation, right-sided pressures were less than 35 mmHg. 07/08/2021, the patient remains on bicarbonate essentially the same setting of 6 with an FiO2 of 40%. Her pulse ox is around 8900 monitor. She is anxious and is a bit Desmond Kercher generating tidal volume 400 range while on the BiPAP and her respiratory rate is around 25. She is anxious and she wants BiPAP on. She feels that she cannot tolerate off the BiPAP. No chest pain. She was given a dose of Lasix yesterday and the patient responded to the diuretics and the patient has been a negative fluid balance 600 mL over the past 24 hours. Meanwhile, the patient continues to be on DuoNeb nebulized treatments around the clock, she remains on IV Solu Medrol 60 mg every 6 hours. Echocardiogram showed a preserved LV function. No significant valvular abnormality. No significant pulmonary hypertension. No major edema lower extremities. Her anxiety levels remain quite high and the patient is receiving Ativan on an as-needed basis. The patient has a white cell count of 6.9 with a hemoglobin of 13.6, BUN is at 20 with a creatinine 0.6, serum bicarb is at 39 and a glucose and currently is at 386. Regards her blood sugar control, the patient is receiving insulin sliding scale coverage. She is also on Lovenox 40 mg subcu for DVT prophylaxis. She is on clonidine patch for blood pressure control patient is also on Diflucan 100 mg by mouth daily for oropharyngeal candidiasis. 07/09/2021, the patient was taken off the BiPAP and she was given a dose of Lasix yesterday and her fluid balance is -800 disease over the past 24 hours. The patient is currently on oxygen at night liters and her pulse ox is around 94-95%. She still using the BiPAP on and off. She is glad that she is off the BiPAP. Her breathing is improved considerably since yesterday. She remains on a IV Solu-Medrol. She remains on bronchodilators [id number] H is taking Lovenox 40 mg for DVT prophylaxis. She is on Diflucan 100 mg for oropharyngeal candidiasis. Blood work from today shows some hyperglycemia. No other labs are available from today her last will be repeated tomorrow. Her last chest x-ray is from yesterday and it showed no significant abnormalities. There was some pleural thickening and small effusion on the right. She is awake and alert. No signs of any CO2 narcosis at this point in time. She is using incentive spirometer. 07/10/2021, the patient continues to improve. Oxygenation has been even better compared to yesterday. On 9 L of oxygen, the patient's pulse ox was 98%. I dropped her down to ask liters. Oxygen source is humidified. She is not using her BiPAP during the day. She did not use also overnight. She remains on bronchodilators patient remains on IV Solu-Medrol. White cell count is 6.9 with a hemoglobin of 13.6. She has chronic metabolic alkalosis with a serum bicarb of 39. No other significant events. She is awake and alert and she is communicating. She is using incentive spirometer. She is in good spirits for now. No chest pain. She is still weak. We'll going to work with physical therapy and try to get it up on a chair, she is on Lovenox for DVT prophylaxis, she is on IV Solu-Medrol, she is also on Lovenox Objective - Vital Signs Vital signs: Vital Signs Temp 98.4 F 07/10/21 08:00 Pulse 103 H 07/10/21 09:50 Resp 20 07/10/21 09:50 BP 111/70 07/10/21 08:00 Pulse Ox 96 07/10/21 08:00 Intake & Output 07/09/21 07/10/21 07/10/21 18:59 06:59 18:59 Output Total 1650 600 Balance -1650 -600 Weight 67.132 kg Output: Urine 1650 600 Straight 600 Other: Voiding Method External Catheter External Catheter External Catheter # Voids 1 1 # Bowel Movements 0 1 - Exam GENERAL EXAM: Awake and responsive, quite dyspneic , 60-year-old white female, entry on 9 L, her breathing is less labored. She is off the BiPAP. HEAD: Normocephalic/atraumatic. EYES: Normal reaction of pupils, equal size. Conjunctiva pink, sclera white. NOSE: Clear with pink turbinates. THROAT: No erythema or exudates. NECK: No masses, no JVD, no thyroid enlargement, no adenopathy. CHEST: No chest wall deformity. Symmetrical expansion. LUNGS: diminished breath sounds bilaterally diffuse wheezes, diffuse improved air entry bilaterally, and there is some crackles at bilateral bases CVS: Regular rate and rhythm, normal S1 and S2, no gallops, no murmurs, no rubs ABDOMEN: Soft, nontender. No hepatosplenomegaly, normal bowel sounds, no guarding or rigidity. EXTREMITIES: No clubbing, no edema, no cyanosis, 2+ pulses and upper and lower extremities. MUSCULOSKELETAL: Muscle strength and tone normal. SPINE: No scoliosis or deformity SKIN: No rashes CENTRAL NERVOUS SYSTEM: Alert and oriented -3. No focal deficits, tone is normal in all 4 extremities. PSYCHIATRIC: Alert and oriented -3. Appropriate affect. Intact judgment and insight. - Labs CBC & Chem 7: 07/08/21 05:31 07/08/21 05:31 Labs: Abnormal Lab Results - Last 24 Hours (Table) 07/09/21 07/09/21 07/09/21 Range/Units 11:17 16:35 20:16 POC Glucose (mg/dL) 348 H 209 H 64 L (75-99) mg/dL 07/09/21 07/10/21 07/10/21 Range/Units 21:09 01:00 06:57 POC Glucose (mg/dL) 188 H 162 H 237 H (75-99) mg/dL 07/10/21 Range/Units 11:00 POC Glucose (mg/dL) 273 H (75-99) mg/dL Assessment and Plan Plan: #1. Acute exacerbation of chronic obstructive pulmonary disease, no evidence of acute pulmonary process on the chest x-ray, COVID 19 PCR was negative, patient is status post completed COVID-19 vaccination. The patient is currently off the BiPAP. The patient is currently on 9 L of oxygen by nasal cannula. She is improving and she is less short of breath and her breathing is less labored. She responded to bronchodilators, steroids and diuretics. She is using incentive spirometer.his improving. I think there is room for weaning down the FiO2 further. #2. Stage IV metastatic breast cancer, status post bilateral mastectomy and oophorectomy, patient follows at the [facility] for her cancer care, she is currently on Ibrance and Foslodex, last treatment was 06/26/2021 #3. History of COPD, on home oxygen, usually wears 2 L on a regular basis, baseline FEV1 is 37% of predicted #4. History of chronic tobacco dependence #5. Hypertension #6. Depression #7. History of Alysha syndrome #8. Acute on chronic hypoxic and hypercapnic respiratory failure related to acute exacerbation of COPD, chest x-ray showed right midlung density, with possibility of atelectasis, CTA chest showed no evidence of pulmonary embolism, lung windows were clear, no mediastinal or hilar adenopathy. She was placed on BiPAP support on which she remains with pressures of 12 and 6 and FiO2 has been drop down to 40% #9 oropharyngeal candidiasis currently on fluconazole #10 steroid-induced hyperglycemia. Plan: Continue the use of BiPAP on and off during the day and at nighttime if needed. Wean down FiO2 to maintain a saturation above 90%, wean down the FiO2 down to 6 L along with humidified oxygen source Start the patient on Robitussin-DM 4 times a day [id number] Given another dose of Lasix 40 mg IV push Continue using the incentive spirometer Continue IV steroids, continue antibiotic's, Continue nebulized bronchodilators The plan is to try the patient on nasal cannula at a later stage. If she is willing, we'll try her on a high flow nasal cannula. Meanwhile, the blood sugar is quite elevated and this is probably related to steroid-induced hyperglycemia. He is the Levemir dose up to 20 units at bedtime and continue monitoring her blood sugars. Continue IVsolu Medrol for another 24 hours. A DNR/DNI CODE STATUS. We'll continue to follow.
[2021-07-10] MEDS: guaiFENesin-DM 100-10MG/5ML 10 ML CUP PO SCH ×2 (11:52→16:46)
--- NOTE | 2021-07-10 12:48 | P.PN ---
Subjective Progress Note Date: 07/10/21 HISTORY OF PRESENT ILLNESS 60-year-old female one of Dr. 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 Also patient had abdominal uterine and fallopian metastasis from breast cancer with total hysterectomy. Patient had respiratory failure on and off in the past has been on home O2 she was hospitalized at [facility] over a month ago for COPD excessive patient was treated and done well. Patient developed to have much worsening shortness of breath cough wheezes try outpatient management not successful ended up seen Dr. Devi fleming and had apparently steroid injection along with antibiotics which did not help ended up in the emergency department at [facility] in the afternoon on 06/30/2021. At the time was seen she was quite hypoxic was having inspiratory expiratory wheezes and significant worsening symptoms. Her COVID-19 by PCR was negative chest x-ray showed COPD with right perihilar and chronic atelectasis with scar tissue. She was diagnosed with COPD excessive patient with severe bronchitis started on IV antibiotic along with IV steroids and bronchodilator pulse ox remained to be low require 4 L of O2 to keep pulse ox above 90 percentile. She was hospitalized with above problem. 07/01: Patient is seen today in the emergency center waiting for a [facility] bed. She has been started on IV Solu-Medrol and NovoLog scale will be added. IV fluids will be discontinued. She has been seen by Dr. Saldivar and Pulmicort and Perforomist added. Patient states that she is feeling much better breathing status is improved from yesterday most likely secondary to steroids. She has been afebrile, heart rate 103, blood pressure 124/90, pulse ox 94% on 3 L nasal cannula. Patient voices that she wishes to BE a no code. 07/02: Complaints of worsening shortness of breath this morning. She did have a good evening and did not take evening nebulizer treatment. She has increased shortness of breath the pulse ox is 92% on 4 L nasal cannula but patient states that her breathing is not good this morning. D-dimer ordered as well as chest x-ray and Ativan were ordered by home medicine. Patient verbalizes that she does not want to go on BiPAP. She remains on Solu-Medrol 60 mg IV every 6 hours 07/03: A-Team was called this morning at midnight this patient was found unresponsive with agonal breathing. Patient was placed on BiPAP and woke up shortly after. Pulmonary medicine has added and theophylline, continue Solu- Medrol 60 mg IV every 6 hours, nebulizers, Pulmicort, Perforomist. Chest x-ray from yesterday afternoon revealed persistent thickening within the periphery of the right mid lung currently measuring 1 cm in thickness which is increased from 2019. CT chest is recommended. Neoplasm is not excluded. CT angiogram of the chest revealed no acute pulmonary embolism. Patient has been afebrile, heart rate 100, blood pressure 145/88, respiratory rate 30, pulse ox 88% on BiPAP. R epeat Covid 19 testing ordered. 07/04: Patient currently is on BiPAP chain, for hypercapnic failure, hasn't had any regular meals, she is requesting to restart back her Ativan as she is panicking with the BiPAP in her face. She has no lightheadedness dizziness, has poor sleep, diminished appetite, she is known to have stage IV metastatic breast cancer, with last treatment in June 2021, using a ibrance and folslodex 07/05: Patient is on BiPAP, complaining of dry eye, still not sleeping at night, has daughter at bedside, updated regarding treatment plan, echocardiogram is requested to eval for pulmonary hypertension, vitals are stable, melatonin added on top of when necessary Ativan 07/06: Patient remains on BiPAP which she has been on 24 hours per day with FiO2 50%. She remains on IV steroids and nebulizer treatments, Pulmicort, and theophylline. The patient is requesting that Ativan be increased to 1 mg which we will do 07/07: Patient continues to have respiratory difficulty, and remains on bipap ATC. Pulse ox 93% on FiO2 50%. Patient is more sedated today and Ativan will be decreased to 0.5 mg but increased frequency to qid. Patient has been afebrile, HR 114, BP 132/92. CBG 154-238. 07/08: Patient complains that she did not sleep last night and still having dif ficulty with anxiety. Buspar 10 mg bid added. Also added Diflucan for thrush and added cardiac monitoring due to interaction with medication that could increase QT prolongation.patient remains on BiPAP around the clock. Pulse ox is 89% on 50% FiO2. She's been afebrile, heart rate 107, blood pressure 150/82. Blood sugar jumped up to 416 and 386 for which scheduled NovoLog will be added. 07/09: Patient is now on high flow nasal cannula at 10 L with pulse ox of 93%. She's been afebrile, heart rate in the low 100s, blood pressure 117/72. Blood sugars showed improvement with changes made to insulins with blood sugars running between 166 and 267. She does not have history of diabetes but will most likely require medication at discharge due to steroids. She appears to be more comfortable today. She states she has a little cough. Incentive spirometry will be added. 07/10: Patient's breathing status continues to improve. She is now on oxygen at 8 L nasal cannula maintaining good pulse ox. She remains afebrile, heart rate in the low 100s, blood pressure 111/70. She states she slept better last night. Blood sugar last evening was 64 and she did not receive Levemir last night. She is on scheduled NovoLog and NovoLog scale. REVIEW OF SYSTEMS Constitutional: No fever, no chills, no night sweats. Generalized weakness, noted fatigue or lethargy. No daytime sleepiness. EENT: No headache. No blurred vision or double vision, no loss of vision. No loss of Hearing, no ringing in the ears, no dizziness. No epistaxis no sore throat. Lungs: Positive shortness of breath reported cough reported wheezes. Continued shortness of breath at rest, improving. Cardiovascular: No chest pain, no lower extremity edema. No palpitations. No paroxysmal nocturnal dyspnea. No orthopnea. No lightheadedness or dizziness. No syncopal episodes. Abdominal: No abdominal pain. No nausea, vomiting. No diarrhea. No constipation. No bloody or tarry stools.. No loss of appetite. Genitourinary: No dysuria, increased frequency, urgency. No urinary retention. Musculoskeletal: No myalgias. No muscle weakness, no gait dysfunction, no frequent falls. No back pain. No neck pain. Integumentary: No wounds, no lesions. No rash or pruritus. No unusual bruis ing. No change in hair or nails. Neurologic: No aphasia. No facial droop. No change in mentation. No head injury. No headache. No paralysis. No paresthesia. Psychiatric: No depression. Reports anxiety. No mood swings. Endocrine: Noted abnormal blood sugars with hypoglycemia and hyperglycemia. PHYSICAL EXAMINATION Gen: This is a 60-year-old female laying in bed currently on nasal cannula oxygen. HEENT: Head is atraumatic, normocephalic. Pupils equal, round. Sclerae is anicteric. NECK: Supple. No JVD. No lymphadenopathy. No thyromegaly. LUNGS: Decreased breath sounds bilateral rhonchi positive inspiratory expiratory wheezes. Noted mild accessory muscle usage and intercostal retractions. HEART: Regular rate and rhythm. No murmur. ABDOMEN: Soft. Bowel sounds are present. No masses. No tenderness. EXTREMITIES: No pedal edema. No calf tenderness. NEUROLOGICAL: Patient is awake, alert and oriented x3. Cranial nerves 2 through 12 are grossly intact. Generalized significant weakness and significant generalized weakness. ASSESSMENT AND PLAN 1. Acute on chronic hypoxic respiratory failure: Combination of COPD exa cerbation or never get an along with severe bronchitis. Continue O2 on BiPAP, Solu-Medrol 60 mg IV every 6 hours, DuoNeb treatments every 4 hours scheduled and as needed, azithromycin 250 mg daily, Pulmicort 1 mg twice daily, Perforomist twice daily, theophylline 300 mg at bedtime. Pulmonary consult appreciated. Chest x-ray and CTA as above. Covid 19 testing repeated was negative. 2. COPD exacerbation With worsening symptoms, continue patient on IV steroid, continue DuoNeb along with Pulmicort. 3. Severe purulent tracheal bronchitis: Continue patient on antibiotic she received 1 dose of Rocephin, continue azithromycin 250 mg a day. 4. Advance breast cancer with lung metastasis: Still seen oncology still on immune oh therapy. 5. hypertension: Patient has been on amlodipine 10 mg a day continue medication. 6. Recurrent depression: Continue patient on Abilify 2 mg twice a day along with lorazepam and Effexor. 7. Hyperglycemia secondary 2 steroids. Continue Accu-Chek with sliding scales coverage and add NovoLog 5 units with meals and also pulmonary added Levemir 20 units. 8. GI prophylaxis: Patient will be on pantoprazole 40 mg daily. 9. DVT prophylaxis: Patient will be on heparin subcutaneous. 10. Dry mouth. Mouthkote qid. 11. General anxiety disorder. Ativan 0.5 mg qid, add BuSpar 10 mg twice daily. 12. Oral thrush. Patient started on Diflucan 100 mg daily. 13. CODE STATUS: No code. 14. COVID-19 testing negative. DISCHARGE PLAN Home Impression and plan of care have been directed as dictated by the signing physician. Arleen Gamez nurse practitioner acting as scribe for signing physician. Objective - Vital Signs Vital signs: Vital Signs Temp 98.4 F 07/10/21 08:00 Pulse 112 H 07/10/21 08:44 Resp 20 07/10/21 08:00 BP 111/70 07/10/21 08:00 Pulse Ox 96 07/10/21 08:00 Intake & Output 07/09/21 07/10/21 07/10/21 18:59 06:59 18:59 Output Total 1650 600 Balance -1650 -600 Weight 67.132 kg Output: Urine 1650 600 Straight 600 Other: Voiding Method External Catheter External Catheter # Voids 1 # Bowel Movements 0 - Labs CBC & Chem 7: 07/08/21 05:31 07/08/21 05:31 Labs: Abnormal Lab Results - Last 24 Hours (Table) 07/09/21 07/09/21 07/09/21 Range/Units 11:17 16:35 20:16 POC Glucose (mg/dL) 348 H 209 H 64 L (75-99) mg/dL 07/09/21 07/10/21 07/10/21 Range/Units 21:09 01:00 06:57 POC Glucose (mg/dL) 188 H 162 H 237 H (75-99) mg/dL
[2021-07-10 16:32] LABS: Glucose,Whole Blood 137 mg/dL (75-99)
[2021-07-10 20:42] LABS: Glucose,Whole Blood 233 mg/dL (75-99)
[2021-07-10] MEDS: THEOPHYLLINE 24 HOUR 300 MG CAP.ER.24H PO SCH (21:04)
[2021-07-10] MEDS: INSULIN DETEMIR (LEVEMIR) 100 UNIT/ML SYR SQ SCH (21:05)
[2021-07-11] MEDS: guaiFENesin-DM 100-10MG/5ML 10 ML CUP PO SCH ×5 (00:19→23:26)
[2021-07-11] MEDS: IPRATROPIUM-ALBUTEROL 3 ML NEB INHALATION SCH ×6 (01:07→20:42)
[2021-07-11] MEDS: methylPREDNISolone SOD SUCCI 125 MG/2 ML VIAL IV SCH ×2 (03:45→11:03)
[2021-07-11 07:09] LABS: Glucose,Whole Blood 225 mg/dL (75-99)
[2021-07-11] MEDS: BUDESONIDE 1 MG/2 ML NEBU INHALATION SCH ×2 (07:34→20:42)
[2021-07-11] MEDS: FORMOTEROL FUMARATE 20 MCG/2 ML NEBU INHALATION SCH ×2 (07:34→20:42)
[2021-07-11] MEDS: busPIRone HCl 10 MG TAB PO SCH ×2 (08:28→23:20)
[2021-07-11] MEDS: PANTOPRAZOLE 40 MG TABLET PO SCH (08:29)
[2021-07-11] MEDS: VENLAFAXINE HCL ER 150 MG CAP PO SCH (08:29)
[2021-07-11] MEDS: LORazepam 0.5 MG TAB PO SCH ×4 (08:29→23:21)
[2021-07-11] MEDS: FLUCONAZOLE 100 MG TAB PO SCH (08:29)
[2021-07-11] MEDS: SENNOSIDES-DOCUSATE SODIUM 1 EACH TAB PO SCH (08:29)
[2021-07-11] MEDS: ENOXAPARIN 40 MG/0.4 ML SYRINGE SQ SCH (08:29)
[2021-07-11] MEDS: INSULIN ASPART (NovoLOG) 100 UNIT/ML VIAL SQ SCH ×7 (08:30→23:20)
[2021-07-11] MEDS: ARIPiprazole 2 MG TAB PO SCH ×2 (08:30→23:21)
[2021-07-11] MEDS: ARTIFICIAL TEARS-HYPROMELLOSE DROPS 15 ML BTL BOTH EYES SCH ×3 (08:32→23:22)
[2021-07-11] MEDS: DRY MOUTH SPRAY 44.3 SPRAY/44.3 ML SPRAY MUCOUS MEM SCH ×4 (08:32→23:22)
--- NOTE | 2021-07-11 10:50 | P.PN ---
Subjective Progress Note Date: 07/11/21 This is a 57-year-old white female patient with past medical history of severe COPD, stage IV metastatic breast cancer most recently patient was on Ibrance and Foslodex ( last treatment was on June 26, 2021) patient follows at the [facility] for her breast cancer care, with previous radiation therapy, hypertension, hyperlipidemia, depression, anxiety. Patient is status post bilateral mastectomy and oophorectomy at the [facility]. Patient presented to the emergency department on 06/30/2021 for evaluation of increased cough, and dyspnea and this has been going on since Tuesday. She went to see Dr. Azevedo in the office and was given a steroid injection, she has not improved, she denies any fever or chills, she has been vaccinated against coronavirus. Her cough is mostly nonproductive, no complaints of central chest pain, swelling or pain. Her chest x-ray shows COPD with right perihilar chronic atelectasis or scarring, based on comparison to previous images. COVID-19 PCR was negative, lab work was reviewed, white blood cell count was normal at 4.3, hemoglobin was 12.12, correlation profile was within normal limits, sodium is 134, potassium is 4.3, chloride is 93, CO2 32, BUN is 9, creatinine 0.49, LFTs were within normal limits. Patient was started on empiric antibiotics, IV steroids and bronchodilators, and we were asked to see the patient consultation. This morning she seen resting on a gurney in the emergency department, she is awaiting a bed on the medical surgical unit, vital signs are stable, she is in sinus mechanism with a rate of 107, pulse ox is 91% on 4 L, patient usually wears 2 L on a regular basis. On 07/02/2021 patient seen in follow-up on the medical surgical floor, patient thinks that her breathing is worse today, she is very tight bronchospastic very short of breath, she is on 4 L of oxygen pulse ox of 92-94%. Afebrile, hemod ynamically she is stable, she is on IV Solu-Medrol 60 mg every 8 hours, she is on Pulmicort and Perforomist, is on antibiotics. She's had no fever or chills, she tested negative for COVID-19. Repeat chest x-ray was obtained showing persistent thickening within the periphery of the right lung, small right pleural effusion. Her pro-calcitonin was negative on admission is 0.09, blood cell count is normal at 4.3, hemoglobin was 12.2, was no evidence of fluid overload. He is bringing up some yellowish colored sputum, she is on azithromycin for antibiotic coverage. No swelling in lower extremities. She is receiving when necessary Ativan for anxiety. On today's evaluation on 07/03/2021 patient is seen in follow-up. Overnight her breathing continued to worsen, patient was quite bronchospastic last night, with labored breathing, and did become less responsive. Rapid response team was aranza led, blood gas was obtained showing pO2 of 288, pCO2 of greater than 120, pH of 7.06. Patient was placed on BiPAP support with pressures of 12 and 5 and FiO2 of 100%, FiO2 has since been dropped down to 40%. This morning she remains on BiPAP support, she started to wake up, to provide some basic answers, although is she still very dyspneic to talk in sentences. Sounds are positive for diffuse wheezes. Yesterday's chest x-ray noted a persistent density within the periphery of the right midlung, with a consideration for atelectasis. Underlying mass could not be completely excluded. CTA chest was obtained last night going no evidence of pulmonary embolism, spinal or hilar adenopathy by CT criteria, lung windows were clear. Vision is maximized on medical treatment, she remains on IV Solu-Medrol 60 mg every 6 hours, azithromycin, Pulmicort, Perforomist, DuoNeb, yesterday we added aspirin 300 mg at bedtime. Her pro calcitonin level was negative this admission 0.09, COVID-19 PCR was negative, yesterday's blood work was fairly unremarkable, d-dimer was -0.56. On 07/05/2021 patient seen in follow-up on medical surgical floor. She remains on BiPAP support, she is of 12 and 6 and FiO2 of 50%, pulse ox is 89%, her follow up ABGs from yesterday was improving, with pH of 7.32, pCO2 of 94, and pO2 of 191, this was done 100% FiO2 which had since been dropped to 50%. Patient is currently maximized on medical treatment, she is on IV steroids with Solu-Medrol 60 g every 6 hours, she is on nebulized bronchodilators, She is on theophylline, she is on empiric antibiotics. Still very dyspneic, tight and wheezy. Not coughing any phlegm up. No chest pain. CT angiogram of chest show ed no evidence of pulmonary embolism. Patient is very anxious as well, she's been getting as needed doses of Ativan. GI and DVT prophylaxis. overall much more awake, and responsive. On 07/06/2021 patient seen in follow-up on medical surgical floor, she currently remains on BiPAP with pressures of 12 and 6 on FiO2 of 50%. Any attempt to switch her to high flow nasal cannula was unsuccessful and the patient quickly desaturates down to low 80s and becomes very dyspneic. She has however moving better air on today's exam, still has diffuse wheezes, but there is better air entry noted bilaterally, breathing slightly better, patient is maximized on medical treatment including IV steroids, nebulized bronchodilators. She is on Pulmicort, Perforomist, DuoNeb, she remains on theophylline, Ativan has been increased to 1 mg 3 times a day for episodes of anxiety. Today's labs have been reviewed, no evidence of leukocytosis, white blood cell count is 7.16, hemoglobin is 12.5, CO2 is 38, chloride is 88, BUN is 16 and creatinine 0.[address] electrolytes are fairly unremarkable. No fever or chills. On 07/07/2021 patient seen in follow-up on medical surgical floor, she remains on BiPAP with pressures of 12 and 6 and FiO2 of 50%, she is awake and alert, she responds to verbal questions, seems to be breathing better, still has diffuse wheezes, but seems to be achieving good volumes up to 500 mL on the BiPAP support. On today's evaluation patient also had some scattered crackles at the bilateral bases. IV fluids have been discontinued, overall she is in -600 mL net fluid balance, she has not been able to take in much by mouth secondary to being BiPAP dependent, her daughter is at the bedside, she states her mother has not been able to eat any meals, however she has been drinking nutritional supplements. Patient continues on nebulized bronchodilators, she is on IV steroids with Solu-Medrol 60 mg every 6 hours, she is on theophylline, and she is receiving lorazepam 0.5 mg 4 times daily on a scheduled basis for anxiety. Echocardiogram showed preserved LV function with no significant valvular dysfunction, there was no aortic stenosis or regurgitation, mild mitral regurgi tation, mild tricuspid regurgitation, right-sided pressures were less than 35 mmHg. 07/08/2021, the patient remains on bicarbonate essentially the same setting of 6 with an FiO2 of 40%. Her pulse ox is around 8900 monitor. She is anxious and is a bit Desmond Kercher generating tidal volume 400 range while on the BiPAP and her respiratory rate is around 25. She is anxious and she wants BiPAP on. She feels that she cannot tolerate off the BiPAP. No chest pain. She was given a dose of Lasix yesterday and the patient responded to the diuretics and the patient has been a negative fluid balance 600 mL over the past 24 hours. Meanwhile, the patient continues to be on DuoNeb nebulized treatments around the clock, she remains on IV Solu Medrol 60 mg every 6 hours. Echocardiogram showed a preserved LV function. No significant valvular abnormality. No significant pulmonary hypertension. No major edema lower extremities. Her anxiety levels remain quite high and the patient is receiving Ativan on an as-needed basis. The patient has a white cell count of 6.9 with a hemoglobin of 13.6, BUN is at 20 with a creatinine 0.6, serum bicarb is at 39 and a glucose and currently is at 386. Regards her blood sugar control, the patient is receiving insulin sliding scale coverage. She is also on Lovenox 40 mg subcu for DVT prophylaxis. She is on clonidine patch for blood pressure control patient is also on Diflucan 100 mg by mouth daily for oropharyngeal candidiasis. 07/09/2021, the patient was taken off the BiPAP and she was given a dose of Lasix yesterday and her fluid balance is -800 disease over the past 24 hours. The patient is currently on oxygen at night liters and her pulse ox is around 94-95%. She still using the BiPAP on and off. She is glad that she is off the BiPAP. Her breathing is improved considerably since yesterday. She remains on a IV Solu-Medrol. She remains on bronchodilators [id number] H is taking Lovenox 40 mg for DVT prophylaxis. She is on Diflucan 100 mg for oropharyngeal candidiasis. Blood work from today shows some hyperglycemia. No other labs are available from today her last will be repeated tomorrow. Her last chest x-ray is from yesterday and it showed no significant abnormalities. There was some pleural thickening and small effusion on the right. She is awake and alert. No signs of any CO2 narcosis at this point in time. She is using incentive spirometer. 07/10/2021, the patient continues to improve. Oxygenation has been even better compared to yesterday. On 9 L of oxygen, the patient's pulse ox was 98%. I dropped her down to ask liters. Oxygen source is humidified. She is not using her BiPAP during the day. She did not use also overnight. She remains on bronchodilators patient remains on IV Solu-Medrol. White cell count is 6.9 with a hemoglobin of 13.6. She has chronic metabolic alkalosis with a serum bicarb of 39. No other significant events. She is awake and alert and she is communicating. She is using incentive spirometer. She is in good spirits for now. No chest pain. She is still weak. We'll going to work with physical therapy and try to get it up on a chair, she is on Lovenox for DVT prophylaxis, she is on IV Solu-Medrol, she is also on Lovenox 07/11 2021, the patient is being seen for a follow-up. She is a case of COPD exacerbation, was taken off the BiPAP and currently is on oxygen by nasal cannula and this morning she is at 8 L. She remains on bronchodilators patient remained on steroids and I have her on IV Solu Medrol 60 mg every 6 hours. She is working on her incentive spirometer. Physically she was weak. She was quite debilitated as she was recovering from her acute COPD exacerbation. No other complaints otherwise for now. She is in good spirits. The patient's blood sugar slightly elevated related to steroid use. She is also on Diflucan for oropharyngeal candidiasis. No signs of any CO2 narcosis. I added Mucinex DM for her for cough and congestion. She is pleasant congestion. Unable to bring up any sputum. He bring up sputum were no Objective - Vital Signs Vital signs: Vital Signs Temp 98.4 F 07/11/21 08:00 Pulse 104 H 07/11/21 08:00 Resp 16 07/11/21 08:00 BP 139/82 07/11/21 08:00 Pulse Ox 90 L 07/11/21 08:00 Intake & Output 07/10/21 07/11/21 07/11/21 18:59 06:59 18:59 Intake Total 800 Balance 800 Intake: Oral 800 Other: Voiding Method External Catheter Bedside Commode External Catheter # Voids 2 2 # Bowel Movements 1 0 - Exam GENERAL EXAM: Awake and responsive, quite dyspneic , 60-year-old white female, entry on 8 L, her breathing is less labored. She is off the BiPAP. HEAD: Normocephalic/atraumatic. EYES: Normal reaction of pupils, equal size. Conjunctiva pink, sclera white. NOSE: Clear with pink turbinates. THROAT: No erythema or exudates. NECK: No masses, no JVD, no thyroid enlargement, no adenopathy. CHEST: No chest wall deformity. Symmetrical expansion. LUNGS: diminished breath sounds bilaterally diffuse wheezes, diffuse improved air entry bilaterally, and there is some crackles at bilateral bases CVS: Regular rate and rhythm, normal S1 and S2, no gallops, no murmurs, no rubs ABDOMEN: Soft, nontender. No hepatosplenomegaly, normal bowel sounds, no guarding or rigidity. EXTREMITIES: No clubbing, no edema, no cyanosis, 2+ pulses and upper and lower extremities. MUSCULOSKELETAL: Muscle strength and tone normal. SPINE: No scoliosis or deformity SKIN: No rashes CENTRAL NERVOUS SYSTEM: Alert and oriented -3. No focal deficits, tone is normal in all 4 extremities. PSYCHIATRIC: Alert and oriented -3. Appropriate affect. Intact judgment and insight. - Labs CBC & Chem 7: 07/08/21 05:31 07/08/21 05:31 Labs: Abnormal Lab Results - Last 24 Hours (Table) 07/10/21 07/10/21 07/10/21 Range/Units 11:00 16:31 20:38 POC Glucose (mg/dL) 273 H 137 H 233 H (75-99) mg/dL 07/11/21 Range/Units 07:04 POC Glucose (mg/dL) 225 H (75-99) mg/dL Assessment and Plan Plan: #1. Acute exacerbation of chronic obstructive pulmonary disease, no evidence of acute pulmonary process on the chest x-ray, COVID 19 PCR was negative, patient is status post completed COVID-19 vaccination. The patient is currently off the BiPAP. The patient is currently on 9 L of oxygen by nasal cannula. She is improving and she is less short of breath and her breathing is less labored. She responded to bronchodilators, steroids and diuretics. She is using incentive spirometer. Overall she is improving, but had minimal change since yesterday. #2. Stage IV metastatic breast cancer, status post bilateral mastectomy and oophorectomy, patient follows at the [facility] for her cancer care, she is currently on Ibrance and Foslodex, last treatment was 06/26/2021 #3. History of COPD, on home oxygen, usually wears 2 L on a regular basis, baseline FEV1 is 37% of predicted #4. History of chronic tobacco dependence #5. Hypertension #6. Depression #7. History of Alysha syndrome #8. Acute on chronic hypoxic and hypercapnic respiratory failure related to acute exacerbation of COPD, chest x-ray showed right midlung density, with possibility of atelectasis, CTA chest showed no evidence of pulmonary embolism, lung windows were clear, no mediastinal or hilar adenopathy. She was placed on BiPAP support on which she remains with pressures of 12 and 6 and FiO2 has been drop down to 40% #9 oropharyngeal candidiasis currently on fluconazole #10 steroid-induced hyperglycemia. Plan: Evaluation, the patient has no major change compared to yesterday. She was started on Robitussin-DM. She was given a dose of Lasix. She is still struggling with her breathing with limited amount of activity. She continues to have a congested cough. She is currently on 8 L of oxygen by nasal cannula. We'll continue the bronchodilators and steroids will be placed at 40 mg every 8 hours of Solu-Medrol Continue the use of BiPAP on and off during the day and at nighttime if needed. Wean down FiO2 to maintain a saturation above 90%, wean down the FiO2 down to 6 L along with humidified oxygen source Start the patient on Robitussin-DM 4 times a day [id number] Given another dose of Lasix 40 mg IV push Continue using the incentive spirometer Continue IV steroids, continue antibiotic's, Continue nebulized bronchodilators The plan is to try the patient on nasal cannula at a later stage. If she is willing, we'll try her on a high flow nasal cannula. Meanwhile, the blood sugar is quite elevated and this is probably related to steroid-induced hyperglycemia. Sh same thing nothing major on lactulose to review sugars are going. e is the Levemir dose up to 20 units at bedtime and continue monitoring her blood sugars. Continue IVsolu Medrol for another 24 hours. A DNR/DNI CODE STATUS. We'll continue to follow.
[2021-07-11 11:36] LABS: Glucose,Whole Blood 373 mg/dL (75-99)
--- NOTE | 2021-07-11 12:20 | P.PN ---
Subjective Progress Note Date: 07/11/21 60-year-old female one of Dr. 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 Also patient had abdominal uterine and fallopian metastasis from breast cancer with total hysterectomy. Patient had respiratory failure on and off in the past has been on home O2 she was hospitalized at [facility] over a month ago for COPD excessive patient was treated and done well. Patient developed to have much worsening shortness of breath cough wheezes try outpatient management not successful ended up seen Dr. Alberts and had apparently steroid injection along with antibiotics which did not help ended up in the emergency department at [facility] in [place] on 06/[place]/2021. At the time was seen she was quite hypoxic was having inspiratory expiratory wheezes and significant worsening symptoms. Her COVID-19 by PCR was negative chest x-ray showed COPD with right perihilar and chronic atelectasis with scar tissue. She was diagnosed with COPD excessive patient with severe bronchitis started on IV antibiotic along with IV steroids and bronchodilator pulse ox remained to be low require 4 L of O2 to keep pulse ox above 90 percentile. She was hospitalized with above problem. 07/01: Patient is seen today in the emergency center waiting for a [facility] bed. She has been started on IV Solu-Medrol and NovoLog scale will be added. IV fluids will be discontinued. She has been seen by Dr. Saldivar and Pulmicort and Perforomist added. Patient states that she is feeling much better breathing status is improved from yesterday most likely secondary to steroids. She has been afebrile, heart rate 103, blood pressure 124/90, pulse ox 94% on 3 L nasal cannula. Patient voices that she wishes to BE a no code. 07/02: Complaints of worsening shortness of breath this morning. She did have a good evening and did not take evening nebulizer treatment. She has increased shortness of breath the pulse ox is 92% on 4 L nasal cannula but patient states that her breathing is not good this morning. D-dimer ordered as well as chest x-ray and Ativan were ordered by home medicine. Patient verbalizes that she does not want to go on BiPAP. She remains on Solu-Medrol 60 mg IV every 6 hours 07/03: A-Team was called this morning at midnight this patient was found unresponsive with agonal breathing. Patient was placed on BiPAP and woke up shortly after. Pulmonary medicine has added and theophylline, continue Solu- Medrol 60 mg IV every 6 hours, nebulizers, Pulmicort, Perforomist. Chest x-ray from yesterday afternoon revealed persistent thickening within the periphery of the right mid lung currently measuring 1 cm in thickness which is increased from 2019. CT chest is recommended. Neoplasm is not excluded. CT angiogram of the chest revealed no acute pulmonary embolism. Patient has been afebrile, heart rate 100, blood pressure 145/88, respiratory rate 30, pulse ox 88% on BiPAP. Repeat Covid 19 testing ordered. 07/04: Patient currently is on BiPAP chain, for hypercapnic failure, hasn't had any regular meals, she is requesting to restart back her Ativan as she is panicking with the BiPAP in her face. She has no lightheadedness dizziness, has poor sleep, diminished appetite, she is known to have stage IV metastatic breast cancer, with last treatment in June 2021, using a ibrance and folslodex 07/05: Patient is on BiPAP, complaining of dry eye, still not sleeping at night, has daughter at bedside, updated regarding treatment plan, echocardiogram is requested to eval for pulmonary hypertension, vitals are stable, melatonin added on top of when necessary Ativan 07/06: Patient remains on BiPAP which she has been on 24 hours per day with FiO2 50%. She remains on IV steroids and nebulizer treatments, Pulmicort, and theophylline. The patient is requesting that Ativan be increased to 1 mg which we will do 07/07: Patient continues to have respiratory difficulty, and remains on bipap ATC. Pulse ox 93% on FiO2 50%. Patient is more sedated today and Ativan will be decreased to 0.5 mg but increased frequency to qid. Patient has been afebrile, HR 114, BP 132/92. CBG 154-238. 07/08: Patient complains that she did not sleep last night and still having difficulty with anxiety. Buspar 10 mg bid added. Also added Diflucan for thrush and added cardiac monitoring due to interaction with medication that could increase QT prolongation.patient remains on BiPAP around the clock. Pulse ox is 89% on 50% FiO2. She's been afebrile, heart rate 107, blood pressure 150/82. Blood sugar jumped up to 416 and 386 for which scheduled NovoLog will be added. 07/09: Patient is now on high flow nasal cannula at 10 L with pulse ox of 93%. She's been afebrile, heart rate in the low 100s, blood pressure 117/72. Blood sugars showed improvement with changes made to insulins with blood sugars running between 166 and 267. She does not have history of diabetes but will most likely require medication at discharge due to steroids. She appears to be more comfortable today. She states she has a little cough. Incentive spirometry will be added. 07/10: Patient's breathing status continues to improve. She is now on oxygen at 8 L nasal cannula maintaining good pulse ox. She remains afebrile, heart rate in the low 100s, blood pressure 111/70. She states she slept better last night. Blood sugar last evening was 64 and she did not receive Levemir last night. She is on scheduled NovoLog and NovoLog scale. 07/11: Patient evaluated this morning. Patient is now on 6 L of O2 and is currently satting at 87-90%. She is afebrile with a temperature of 98.4, heart rate 104, respiratory of 16, blood pressure 139/82. She continues on bronchodilators as well as steroids with IV Solu-Medrol 60 mg every 6 hours. G lucose elevated secondary to steroids she'll continue on NovoLog 7 units 3 times a day along with sliding scale and Levemir 23 units at at bedtime. Objective - Vital Signs Vital signs: Vital Signs Temp 98.4 F 07/11/21 08:00 Pulse 114 H 07/11/21 11:04 Resp 16 07/11/21 08:00 BP 139/82 07/11/21 08:00 Pulse Ox 90 L 07/11/21 08:00 Intake & Output 07/10/21 07/11/21 07/11/21 18:59 06:59 18:59 Intake Total 800 Balance 800 Intake: Oral 800 Other: Voiding Method External Catheter Bedside Commode External Catheter # Voids 2 2 # Bowel Movements 1 0 - Constitutional General appearance: Present: cooperative, no acute distress - EENT Eyes: Present: EOMI, PERRLA, normal appearance ENT: Present: hearing grossly normal, normal oropharynx - Respiratory Respiratory: bilateral: diminished, wheezing (Diffuse wheezing and crackles at bilateral bases) - Cardiovascular Rhythm: regular Heart sounds: normal: S1, S2 - Gastrointestinal General gastrointestinal: Present: normal bowel sounds, soft. Absent: distended, organomegaly, tenderness - Neurologic Neurologic: Present: CNII-XII intact, focal deficits - Musculoskeletal Musculoskeletal: Present: gait normal, generalized weakness, strength equal bilaterally - Psychiatric Psychiatric: Present: A&O x's 3, appropriate affect - Labs CBC & Chem 7: 07/08/21 05:31 07/08/21 05:31 Labs: Abnormal Lab Results - Last 24 Hours (Table) 07/10/21 07/10/21 07/11/21 Range/Units 16:31 20:38 07:04 POC Glucose (mg/dL) 137 H 233 H 225 H (75-99) mg/dL 07/11/21 Range/Units 11:34 POC Glucose (mg/dL) 373 H (75-99) mg/dL Assessment and Plan Plan: 1. Acute on chronic hypoxic respiratory failure: Combination of COPD exa cerbation or never get an along with severe bronchitis. Off of BiPAP, now maintaining on 6 L, Solu-Medrol 60 mg IV every 6 hours, DuoNeb treatments every 4 hours scheduled and as needed, azithromycin 250 mg daily, Pulmicort 1 mg twice daily, Perforomist twice daily, theophylline 300 mg at bedtime. Pulmonary is following. 2. COPD exacerbation With worsening symptoms, continue patient on IV steroid, continue DuoNeb along with Pulmicort. 3. Severe purulent tracheal bronchitis: Continue patient on antibiotic she received 1 dose of Rocephin, continue azithromycin 250 mg a day. 4. Advance breast cancer with lung metastasis: Still seen oncology still on immune oh therapy. 5. hypertension: Patient has been on amlodipine 10 mg a day continue medication. 6. Recurrent depression: Continue patient on Abilify 2 mg twice a day along with lorazepam and Effexor. 7. Hyperglycemia secondary 2 steroids. Continue Accu-Chek with sliding scales coverage and add NovoLog 5 units with meals and also pulmonary added Levemir 20 units. 8. GI prophylaxis: Patient will be on pantoprazole 40 mg daily. 9. DVT prophylaxis: Patient will be on heparin subcutaneous. 10. Dry mouth. Mouthkote qid. 11. General anxiety disorder. Ativan 0.5 mg qid, add BuSpar 10 mg twice daily. 12. Oral thrush. Patient started on Diflucan 100 mg daily. 13. CODE STATUS: No code. 14. COVID-19 testing negative. The above impression and plan of care have been discussed and directed by signing physician. [place] C[place] nurse practitioner acting as scribe for signing physician.
[2021-07-11 16:35] LABS: Glucose,Whole Blood 70 mg/dL (75-99)
[2021-07-11] MEDS: methylPREDNISolone SOD SUCCI 40 MG/ML 1 ML VIAL IV SCH ×2 (17:04→23:19)
[2021-07-11 21:18] LABS: Glucose,Whole Blood 252 mg/dL (75-99)
[2021-07-11] MEDS: INSULIN DETEMIR (LEVEMIR) 100 UNIT/ML SYR SQ SCH (23:20)
[2021-07-11] MEDS: THEOPHYLLINE 24 HOUR 300 MG CAP.ER.24H PO SCH (23:21)
[2021-07-12] MEDS: IPRATROPIUM-ALBUTEROL 3 ML NEB INHALATION SCH ×6 (00:54→19:38)
[2021-07-12] MEDS: guaiFENesin-DM 100-10MG/5ML 10 ML CUP PO SCH ×3 (06:06→17:44)
[2021-07-12 07:40] LABS: Glucose,Whole Blood 192 mg/dL (75-99)
[2021-07-12] MEDS: FORMOTEROL FUMARATE 20 MCG/2 ML NEBU INHALATION SCH ×2 (08:14→19:38)
[2021-07-12] MEDS: BUDESONIDE 1 MG/2 ML NEBU INHALATION SCH ×2 (08:15→19:38)
[2021-07-12] MEDS: INSULIN ASPART (NovoLOG) 100 UNIT/ML VIAL SQ SCH ×7 (08:54→21:51)
[2021-07-12] MEDS: ARIPiprazole 2 MG TAB PO SCH ×2 (08:55→21:52)
[2021-07-12] MEDS: PANTOPRAZOLE 40 MG TABLET PO SCH (08:55)
[2021-07-12] MEDS: methylPREDNISolone SOD SUCCI 40 MG/ML 1 ML VIAL IV SCH ×2 (08:56→17:44)
[2021-07-12] MEDS: busPIRone HCl 10 MG TAB PO SCH ×2 (08:56→21:51)
[2021-07-12] MEDS: ENOXAPARIN 40 MG/0.4 ML SYRINGE SQ SCH (08:56)
[2021-07-12] MEDS: LORazepam 0.5 MG TAB PO SCH ×4 (08:56→21:52)
[2021-07-12] MEDS: SENNOSIDES-DOCUSATE SODIUM 1 EACH TAB PO SCH (08:56)
[2021-07-12] MEDS: VENLAFAXINE HCL ER 150 MG CAP PO SCH (08:56)
[2021-07-12] MEDS: FLUCONAZOLE 100 MG TAB PO SCH (08:56)
[2021-07-12] MEDS: DRY MOUTH SPRAY 44.3 SPRAY/44.3 ML SPRAY MUCOUS MEM SCH ×4 (08:57→21:53)
[2021-07-12] MEDS: ARTIFICIAL TEARS-HYPROMELLOSE DROPS 15 ML BTL BOTH EYES SCH ×3 (08:58→21:53)
[2021-07-12 09:44] LABS: HCT 43.6 % (37.2-46.3); HGB 13.1 g/dL (12.0-15.0); MCH 32.2 pg (27.0-32.0); MCV 107.1 fL (80.0-97.0); Mean Platelet Volume 9.2 fL (9.5-12.2); Platelet Count 267 X 10*3/uL (140-440); RBC 4.07 X 10*6/uL (4.10-5.20); RDW 13.4 % (11.5-14.5); WBC 9.44 X 10*3/uL (4.50-10.00)
--- NOTE | 2021-07-12 10:18 | P.PN ---
Subjective Progress Note Date: 07/12/21 This is a 57-year-old white female patient with past medical history of severe COPD, stage IV metastatic breast cancer most recently patient was on Ibrance and Foslodex ( last treatment was on June 26, 2021) patient follows at the [facility] for her breast cancer care, with previous radiation therapy, hypertension, hyperlipidemia, depression, anxiety. Patient is status post bilateral mastectomy and oophorectomy at the [facility]. Patient presented to the emergency department on 06/30/2021 for evaluation of increased cough, and dyspnea and this has been going on since Tuesday. She went to see Dr. Azevedo in the office and was given a steroid injection, she has not improved, she denies any fever or chills, she has been vaccinated against coronavirus. Her cough is mostly nonproductive, no complaints of central chest pain, swelling or pain. Her chest x-ray shows COPD with right perihilar chronic atelectasis or scarring, based on comparison to previous images. COVID-19 PCR was negative, lab work was reviewed, white blood cell count was normal at 4.3, hemoglobin was 12.12, correlation profile was within normal limits, sodium is 134, potassium is 4.3, chloride is 93, CO2 32, BUN is 9, creatinine 0.49, LFTs were within normal limits. Patient was started on empiric antibiotics, IV steroids and bronchodilators, and we were asked to see the patient consultation. This morning she seen resting on a gurney in the emergency department, she is awaiting a bed on the medical surgical unit, vital signs are stable, she is in sinus mechanism with a rate of 107, pulse ox is 91% on 4 L, patient usually wears 2 L on a regular basis. On 07/02/2021 patient seen in follow-up on the medical surgical floor, patient thinks that her breathing is worse today, she is very tight bronchospastic very short of breath, she is on 4 L of oxygen pulse ox of 92-94%. Afebrile, hemod ynamically she is stable, she is on IV Solu-Medrol 60 mg every 8 hours, she is on Pulmicort and Perforomist, is on antibiotics. She's had no fever or chills, she tested negative for COVID-19. Repeat chest x-ray was obtained showing persistent thickening within the periphery of the right lung, small right pleural effusion. Her pro-calcitonin was negative on admission is 0.09, blood cell count is normal at 4.3, hemoglobin was 12.2, was no evidence of fluid overload. He is bringing up some yellowish colored sputum, she is on azithromycin for antibiotic coverage. No swelling in lower extremities. She is receiving when necessary Ativan for anxiety. On today's evaluation on 07/03/2021 patient is seen in follow-up. Overnight her breathing continued to worsen, patient was quite bronchospastic last night, with labored breathing, and did become less responsive. Rapid response team was aranza led, blood gas was obtained showing pO2 of 288, pCO2 of greater than 120, pH of 7.06. Patient was placed on BiPAP support with pressures of 12 and 5 and FiO2 of 100%, FiO2 has since been dropped down to 40%. This morning she remains on BiPAP support, she started to wake up, to provide some basic answers, although is she still very dyspneic to talk in sentences. Sounds are positive for diffuse wheezes. Yesterday's chest x-ray noted a persistent density within the periphery of the right midlung, with a consideration for atelectasis. Underlying mass could not be completely excluded. CTA chest was obtained last night going no evidence of pulmonary embolism, spinal or hilar adenopathy by CT criteria, lung windows were clear. Vision is maximized on medical treatment, she remains on IV Solu-Medrol 60 mg every 6 hours, azithromycin, Pulmicort, Perforomist, DuoNeb, yesterday we added aspirin 300 mg at bedtime. Her pro calcitonin level was negative this admission 0.09, COVID-19 PCR was negative, yesterday's blood work was fairly unremarkable, d-dimer was -0.56. On 07/05/2021 patient seen in follow-up on medical surgical floor. She remains on BiPAP support, she is of 12 and 6 and FiO2 of 50%, pulse ox is 89%, her follow up ABGs from yesterday was improving, with pH of 7.32, pCO2 of 94, and pO2 of 191, this was done 100% FiO2 which had since been dropped to 50%. Patient is currently maximized on medical treatment, she is on IV steroids with Solu-Medrol 60 g every 6 hours, she is on nebulized bronchodilators, She is on theophylline, she is on empiric antibiotics. Still very dyspneic, tight and wheezy. Not coughing any phlegm up. No chest pain. CT angiogram of chest show ed no evidence of pulmonary embolism. Patient is very anxious as well, she's been getting as needed doses of Ativan. GI and DVT prophylaxis. overall much more awake, and responsive. On 07/06/2021 patient seen in follow-up on medical surgical floor, she currently remains on BiPAP with pressures of 12 and 6 on FiO2 of 50%. Any attempt to switch her to high flow nasal cannula was unsuccessful and the patient quickly desaturates down to low 80s and becomes very dyspneic. She has however moving better air on today's exam, still has diffuse wheezes, but there is better air entry noted bilaterally, breathing slightly better, patient is maximized on medical treatment including IV steroids, nebulized bronchodilators. She is on Pulmicort, Perforomist, DuoNeb, she remains on theophylline, Ativan has been increased to 1 mg 3 times a day for episodes of anxiety. Today's labs have been reviewed, no evidence of leukocytosis, white blood cell count is 7.16, hemoglobin is 12.5, CO2 is 38, chloride is 88, BUN is 16 and creatinine 0.[address] electrolytes are fairly unremarkable. No fever or chills. On 07/07/2021 patient seen in follow-up on medical surgical floor, she remains on BiPAP with pressures of 12 and 6 and FiO2 of 50%, she is awake and alert, she responds to verbal questions, seems to be breathing better, still has diffuse wheezes, but seems to be achieving good volumes up to 500 mL on the BiPAP support. On today's evaluation patient also had some scattered crackles at the bilateral bases. IV fluids have been discontinued, overall she is in -600 mL net fluid balance, she has not been able to take in much by mouth secondary to being BiPAP dependent, her daughter is at the bedside, she states her mother has not been able to eat any meals, however she has been drinking nutritional supplements. Patient continues on nebulized bronchodilators, she is on IV steroids with Solu-Medrol 60 mg every 6 hours, she is on theophylline, and she is receiving lorazepam 0.5 mg 4 times daily on a scheduled basis for anxiety. Echocardiogram showed preserved LV function with no significant valvular dysfunction, there was no aortic stenosis or regurgitation, mild mitral regurgi tation, mild tricuspid regurgitation, right-sided pressures were less than 35 mmHg. 07/08/2021, the patient remains on bicarbonate essentially the same setting of 6 with an FiO2 of 40%. Her pulse ox is around 8900 monitor. She is anxious and is a bit Desmond Kercher generating tidal volume 400 range while on the BiPAP and her respiratory rate is around 25. She is anxious and she wants BiPAP on. She feels that she cannot tolerate off the BiPAP. No chest pain. She was given a dose of Lasix yesterday and the patient responded to the diuretics and the patient has been a negative fluid balance 600 mL over the past 24 hours. Meanwhile, the patient continues to be on DuoNeb nebulized treatments around the clock, she remains on IV Solu Medrol 60 mg every 6 hours. Echocardiogram showed a preserved LV function. No significant valvular abnormality. No significant pulmonary hypertension. No major edema lower extremities. Her anxiety levels remain quite high and the patient is receiving Ativan on an as-needed basis. The patient has a white cell count of 6.9 with a hemoglobin of 13.6, BUN is at 20 with a creatinine 0.6, serum bicarb is at 39 and a glucose and currently is at 386. Regards her blood sugar control, the patient is receiving insulin sliding scale coverage. She is also on Lovenox 40 mg subcu for DVT prophylaxis. She is on clonidine patch for blood pressure control patient is also on Diflucan 100 mg by mouth daily for oropharyngeal candidiasis. 07/09/2021, the patient was taken off the BiPAP and she was given a dose of Lasix yesterday and her fluid balance is -800 disease over the past 24 hours. The patient is currently on oxygen at night liters and her pulse ox is around 94-95%. She still using the BiPAP on and off. She is glad that she is off the BiPAP. Her breathing is improved considerably since yesterday. She remains on a IV Solu-Medrol. She remains on bronchodilators [id number] H is taking Lovenox 40 mg for DVT prophylaxis. She is on Diflucan 100 mg for oropharyngeal candidiasis. Blood work from today shows some hyperglycemia. No other labs are available from today her last will be repeated tomorrow. Her last chest x-ray is from yesterday and it showed no significant abnormalities. There was some pleural thickening and small effusion on the right. She is awake and alert. No signs of any CO2 narcosis at this point in time. She is using incentive spirometer. 07/10/2021, the patient continues to improve. Oxygenation has been even better compared to yesterday. On 9 L of oxygen, the patient's pulse ox was 98%. I dropped her down to ask liters. Oxygen source is humidified. She is not using her BiPAP during the day. She did not use also overnight. She remains on bronchodilators patient remains on IV Solu-Medrol. White cell count is 6.9 with a hemoglobin of 13.6. She has chronic metabolic alkalosis with a serum bicarb of 39. No other significant events. She is awake and alert and she is communicating. She is using incentive spirometer. She is in good spirits for now. No chest pain. She is still weak. We'll going to work with physical therapy and try to get it up on a chair, she is on Lovenox for DVT prophylaxis, she is on IV Solu-Medrol, she is also on Lovenox 07/11 2021, the patient is being seen for a follow-up. She is a case of COPD exacerbation, was taken off the BiPAP and currently is on oxygen by nasal cannula and this morning she is at 8 L. She remains on bronchodilators patient remained on steroids and I have her on IV Solu Medrol 60 mg every 6 hours. She is working on her incentive spirometer. Physically she was weak. She was quite debilitated as she was recovering from her acute COPD exacerbation. No other complaints otherwise for now. She is in good spirits. The patient's blood sugar slightly elevated related to steroid use. She is also on Diflucan for oropharyngeal candidiasis. No signs of any CO2 narcosis. I added Mucinex DM for her for cough and congestion. She is pleasant congestion. Unable to bring up any sputum. 2020, the patient is sitting up on a chair. She is off the BiPAP. She is still on 7 L of oxygen by nasal cannula. Working on incentive spirometer. Her cough is less congested on today's evaluation. No new complaints otherwise for now. Using incentive spirometer. No chest pain. No other complaints otherwise Boris is a bit irritated and anxious knowing that she has been in the hospital for the past 12 days. Nevertheless, she was admitted with severe COPD exacerbation and she end up staying on the BiPAP for several days and for now in the process of weaning down the FiO2 gradually. She is currently on IV Solu-Medrol 40 mg every 8 hours. He is also using bronchodilators [id number]. She is on Mucinex. Objective - Vital Signs Vital signs: Vital Signs Temp 97.4 F L 07/12/21 08:00 Pulse 103 H 07/12/21 08:32 Resp 20 07/12/21 08:00 BP 126/85 07/12/21 08:00 Pulse Ox 97 07/12/21 08:17 Intake & Output 07/11/21 07/12/21 07/12/21 18:59 06:59 18:59 Intake Total 1600 Balance 1600 Intake: Oral 1600 Other: Voiding Method Bedside Commode # Voids 3 # Bowel Movements 1 - Exam GENERAL EXAM: Awake and responsive, quite dyspneic , 60-year-old white female, entry on 7 L, her breathing is less labored. She is off the BiPAP. HEAD: Normocephalic/atraumatic. EYES: Normal reaction of pupils, equal size. Conjunctiva pink, sclera white. NOSE: Clear with pink turbinates. THROAT: No erythema or exudates. NECK: No masses, no JVD, no thyroid enlargement, no adenopathy. CHEST: No chest wall deformity. Symmetrical expansion. LUNGS: diminished breath sounds bilaterally diffuse wheezes, diffuse improved air entry bilaterally, and there is some crackles at bilateral bases CVS: Regular rate and rhythm, normal S1 and S2, no gallops, no murmurs, no rubs ABDOMEN: Soft, nontender. No hepatosplenomegaly, normal bowel sounds, no guarding or rigidity. EXTREMITIES: No clubbing, no edema, no cyanosis, 2+ pulses and upper and lower extremities. MUSCULOSKELETAL: Muscle strength and tone normal. SPINE: No scoliosis or deformity SKIN: No rashes CENTRAL NERVOUS SYSTEM: Alert and oriented -3. No focal deficits, tone is normal in all 4 extremities. PSYCHIATRIC: Alert and oriented -3. Appropriate affect. Intact judgment and insight. - Labs CBC & Chem 7: 07/12/21 06:08 07/08/21 05:31 Labs: Abnormal Lab Results - Last 24 Hours (Table) 07/11/21 07/11/21 07/11/21 Range/Units 11:34 16:34 21:16 RBC (4.10-5.20) X 10*6/uL MCV (80.0-97.0) fL MCH (27.0-32.0) pg MCHC (32.0-37.0) g/dL MPV (9.5-12.2) fL POC Glucose (mg/dL) 373 H 70 L 252 H (75-99) mg/dL 07/12/21 07/12/21 Range/Units 06:08 07:29 RBC 4.07 L (4.10-5.20) X 10*6/uL MCV 107.1 H (80.0-97.0) fL MCH 32.2 H (27.0-32.0) pg MCHC 30.0 L (32.0-37.0) g/dL MPV 9.2 L (9.5-12.2) fL POC Glucose (mg/dL) 192 H (75-99) mg/dL Assessment and Plan Plan: #1. Acute exacerbation of chronic obstructive pulmonary disease, no evidence of acute pulmonary process on the chest x-ray, COVID 19 PCR was negative, patient is status post completed COVID-19 vaccination. The patient is currently off the BiPAP. The patient is currently on 7 L of oxygen by nasal cannula. She is improving and she is less short of breath and her breathing is less labored. She responded to bronchodilators, steroids and diuretics. She is using incentive spirometer. Solu-Medrol is being weaned off her that she is on 40 mg of IV Solu Medrol every 8 hours. A reasonable option by nasal cannula. #2. Stage IV metastatic breast cancer, status post bilateral mastectomy and oophorectomy, patient follows at the [facility] for her cancer care, she is currently on Ibrance and Foslodex, last treatment was 06/26/2021 #3. History of COPD, on home oxygen, usually wears 2 L on a regular basis, baseline FEV1 is 37% of predicted #4. History of chronic tobacco dependence #5. Hypertension #6. Depression #7. History of Alysha syndrome #8. Acute on chronic hypoxic and hypercapnic respiratory failure related to acute exacerbation of COPD, chest x-ray showed right midlung density, with possibility of atelectasis, CTA chest showed no evidence of pulmonary embolism, lung windows were clear, no mediastinal or hilar adenopathy. She was placed on BiPAP support on which she remains with pressures of 12 and 6 and FiO2 has been drop down to 40% #9 oropharyngeal candidiasis currently on fluconazole #10 steroid-induced hyperglycemia. Plan: Evaluation, the patient has no major change compared to yesterday. She was started on Robitussin-DM. She was given a dose of Lasix. She is still struggling with her breathing with limited amount of activity. She continues to have a congested cough. She is currently on 6 L of oxygen by nasal cannula. We'll continue the bronchodilators and steroids will be placed at 40 mg every 8 hours of Solu-Medrol Continue the use of BiPAP on and off during the day and at nighttime if needed. Wean down FiO2 to maintain a saturation above 90%, wean down the FiO2 down to 5 L along with humidified oxygen source Start the patient on Robitussin-DM 4 times a day [id number] Continue using the incentive spirometer Continue IV steroids, continue antibiotic's, Continue nebulized bronchodilators A DNR/DNI CODE STATUS. We'll continue to follow.
--- NOTE | 2021-07-12 10:21 | P.PN ---
Subjective 60-year-old female one of Dr. 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 Also patient had abdominal uterine and fallopian metastasis from breast cancer with total hysterectomy. Patient had respiratory failure on and off in the past has been on home O2 she was hospitalized at [facility] over a month ago for COPD excessive patient was treated and done well. Patient developed to have much worsening shortness of breath cough wheezes try outpatient management not successful ended up seen Dr. Alberts and had apparently steroid injection along with antibiotics which did not help ended up in the emergency department at [facility] in the afternoon on 06/30/2021. At the time was seen she was quite hypoxic was having inspiratory expiratory wheezes and significant worsening symptoms. Her COVID-19 by PCR was negative chest x-ray showed COPD with right perihilar and chronic atelectasis with scar tissue. She was diagnosed with COPD excessive patient with severe bronchitis started on IV antibiotic along with IV steroids and bronchodilator pulse ox remained to be low require 4 L of O2 to keep pulse ox above 90 percentile. She was hospitalized with above problem. 07/01: Patient is seen today in the emergency center waiting for a [facility] bed. She has been started on IV Solu-Medrol and NovoLog scale will be added. IV fluids will be discontinued. She has been seen by Dr. Saldivar and Pulmicort and Perforomist added. Patient states that she is feeling much better breathing status is improved from yesterday most likely secondary to steroids. She has been afebrile, heart rate 103, blood pressure 124/90, pulse ox 94% on 3 L nasal cannula. Patient voices that she wishes to BE a no code. 07/02: Complaints of worsening shortness of breath this morning. She did have a good evening and did not take evening nebulizer treatment. She has increased shortness of breath the pulse ox is 92% on 4 L nasal cannula but patient states that her breathing is not good this morning. D-dimer ordered as well as chest x-ray and Ativan were ordered by home medicine. Patient verbalizes that she does not want to go on BiPAP. She remains on Solu-Medrol 60 mg IV every 6 hours 07/03: A-Team was called this morning at midnight this patient was found unresponsive with agonal breathing. Patient was placed on BiPAP and woke up shortly after. Pulmonary medicine has added and theophylline, continue Solu- Medrol 60 mg IV every 6 hours, nebulizers, Pulmicort, Perforomist. Chest x-ray from yesterday afternoon revealed persistent thickening within the periphery of the right mid lung currently measuring 1 cm in thickness which is increased from 2019. CT chest is recommended. Neoplasm is not excluded. CT angiogram of the chest revealed no acute pulmonary embolism. Patient has been afebrile, heart rate 100, blood pressure 145/88, respiratory rate 30, pulse ox 88% on BiPAP. Repeat Covid 19 testing ordered. 07/04: Patient currently is on BiPAP chain, for hypercapnic failure, hasn't had any regular meals, she is requesting to restart back her Ativan as she is panicking with the BiPAP in her face. She has no lightheadedness dizziness, has poor sleep, diminished appetite, she is known to have stage IV metastatic breast cancer, with last treatment in June 2021, using a ibrance and folslodex 07/05: Patient is on BiPAP, complaining of dry eye, still not sleeping at night, has daughter at bedside, updated regarding treatment plan, echocardiogram is requested to eval for pulmonary hypertension, vitals are stable, melatonin added on top of when necessary Ativan 07/06: Patient remains on BiPAP which she has been on 24 hours per day with FiO2 50%. She remains on IV steroids and nebulizer treatments, Pulmicort, and theophylline. The patient is requesting that Ativan be increased to 1 mg which we will do 07/07: Patient continues to have respiratory difficulty, and remains on bipap ATC. Pulse ox 93% on FiO2 50%. Patient is more sedated today and Ativan will be decreased to 0.5 mg but increased frequency to qid. Patient has been afebrile, HR 114, BP 132/92. CBG 154-238. 07/08: Patient complains that she did not sleep last night and still having difficulty with anxiety. Buspar 10 mg bid added. Also added Diflucan for thrush and added cardiac monitoring due to interaction with medication that could increase QT prolongation.patient remains on BiPAP around the clock. Pulse ox is 89% on 50% FiO2. She's been afebrile, heart rate 107, blood pressure 150/82. Blood sugar jumped up to 416 and 386 for which scheduled NovoLog will be added. 07/09: Patient is now on high flow nasal cannula at 10 L with pulse ox of 93%. She's been afebrile, heart rate in the low 100s, blood pressure 117/72. Blood sugars showed improvement with changes made to insulins with blood sugars running between 166 and 267. She does not have history of diabetes but will most likely require medication at discharge due to steroids. She appears to be more comfortable today. She states she has a little cough. Incentive spirometry will be added. 07/10: Patient's breathing status continues to improve. She is now on oxygen at 8 L nasal cannula maintaining good pulse ox. She remains afebrile, heart rate in the low 100s, blood pressure 111/70. She states she slept better last night. Blood sugar last evening was 64 and she did not receive Levemir last night. She is on scheduled NovoLog and NovoLog scale. 07/11: Patient evaluated this morning. Patient is now on 6 L of O2 and is currently satting at 87-90%. She is afebrile with a temperature of 98.4, heart rate 104, respiratory of 16, blood pressure 139/82. She continues on bronchodilators as well as steroids with IV Solu-Medrol 60 mg every 6 hours. Glucose elevated secondary to steroids she'll continue on NovoLog 7 units 3 times a day along with sliding scale and Levemir 23 units at at bedtime. 07/12: Patient evaluated this morning, patient is now on high flow nasal cannula at 9 L, O2 saturation is 97%. Temperature 97.4, heart rate 97, respiratory 20, blood pressure 126/85. Glucose still has spotting running high with occasional lows, yesterday loss was 70, highest was 373. Steroids were decreased to 40 mg every 8 hours. Insulin was adjusted NovoLog from 7 units to 4 units and Detemir 23 units at at bedtime. Patient has complaints of nausea Zofran was also added. Patient is very weak will have PT evaluate for the possibility of rehab Objective - Vital Signs Vital signs: Vital Signs Temp 97.4 F L 07/12/21 08:00 Pulse 103 H 07/12/21 08:32 Resp 20 07/12/21 08:00 BP 126/85 07/12/21 08:00 Pulse Ox 97 07/12/21 08:17 Intake & Output 07/11/21 07/12/21 07/12/21 18:59 06:59 18:59 Intake Total 1600 Balance 1600 Intake: Oral 1600 Other: Voiding Method Bedside Commode # Voids 3 # Bowel Movements 1 - Exam - Constitutional General appearance: Present: cooperative, no acute distress - EENT Eyes: Present: EOMI, PERRLA, normal appearance ENT: Present: hearing grossly normal, normal oropharynx - Respiratory Respiratory: bilateral: diminished, wheezing (Diffuse wheezing and crackles at bilateral bases) - Cardiovascular Rhythm: regular Heart sounds: normal: S1, S2 - Gastrointestinal General gastrointestinal: Present: normal bowel sounds, soft. Absent: distended, organomegaly, tenderness - Neurologic Neurologic: Present: CNII-XII intact, focal deficits - Musculoskeletal Musculoskeletal: Present: gait normal, generalized weakness, strength equal bilaterally - Psychiatric Psychiatric: Present: A&O x's 3, appropriate affect very weak - Labs CBC & Chem 7: 07/12/21 06:08 07/08/21 05:31 Labs: Abnormal Lab Results - Last 24 Hours (Table) 07/11/21 07/11/21 07/11/21 Range/Units 11:34 16:34 21:16 POC Glucose (mg/dL) 373 H 70 L 252 H (75-99) mg/dL 07/12/21 Range/Units 07:29 POC Glucose (mg/dL) 192 H (75-99) mg/dL Assessment and Plan Plan: 1. Acute on chronic hypoxic respiratory failure: Combination of COPD exacerbat ion or never get an along with severe bronchitis. Off of BiPAP, Solu-Medrol 40 mg IV every 6 hours, DuoNeb treatments every 4 hours scheduled and as needed, azithromycin 250 mg daily, Pulmicort 1 mg twice daily, Perforomist twice daily, theophylline 300 mg at bedtime. Pulmonary is following. 2. COPD exacerbation With worsening symptoms, continue patient on IV steroid, continue DuoNeb along with Pulmicort. 3. Severe purulent tracheal bronchitis: Continue patient on antibiotic she received 1 dose of Rocephin, continue azithromycin 250 mg a day. 4. Advance breast cancer with lung metastasis: Still seen oncology still on immune oh therapy. 5. hypertension: Patient has been on amlodipine 10 mg a day continue medication. 6. Recurrent depression: Continue patient on Abilify 2 mg twice a day along with lorazepam and Effexor. 7. Hyperglycemia secondary 2 steroids. Continue Accu-Chek with sliding scales coverage and add NovoLog 4 units with meals and also pulmonary added Levemir 23 units. 8. GI prophylaxis: Patient will be on pantoprazole 40 mg daily. 9. DVT prophylaxis: Patient will be on heparin subcutaneous. 10. Dry mouth. Mouthkote qid. 11. General anxiety disorder. Ativan 0.5 mg qid, add BuSpar 10 mg twice daily. 12. Oral thrush. Patient started on Diflucan 100 mg daily. 13. Nausea. Zofan 14. Debility. Will have physical therapy reassess for the possibility of subacute rehab upon discharge 13. CODE STATUS: No code. 14. COVID-19 testing negative. The above impression and plan of care have been discussed and directed by signing physician. [place] nurse practitioner acting as scribe for signing physician.
[2021-07-12] MEDS: ONDANSETRON 4 MG/2 ML VIAL IVP PRN (10:48)
[2021-07-12 10:54] LABS: Albumin 4.2 g/dL (3.8-4.9); Albumin/Globulin Ratio 2.01 (1.60-3.17); Anion Gap 7.7 mmol/L (4.00-12.00); BUN/Creat Ratio 32.43 Ratio (12.00-20.00); Blood Urea Nitrogen 16.8 mg/dL (9.0-27.0); Calcium 9.5 mg/dL (8.7-10.3); Carbon Dioxide 42.3 mmol/L (21.6-31.8); Globulin 2.1 g/dL (1.6-3.3); Non-African American GFR(CKD) 105.5 (60.0-200.0); Potassium 5.2 mmol/L (3.5-5.5); Total Bilirubin 0.2 mg/dL (0.30-1.20); Total Protein 6.3 g/dL (6.2-8.2)
[2021-07-12 11:10] LABS: African American GFR (CKD) 122.2 (60.0-200.0)
[2021-07-12 11:33] LABS: Glucose,Whole Blood 268 mg/dL (75-99)
--- NOTE | 2021-07-12 12:59 | P.CRDCN ---
History of Present Illness Consult date: 07/12/21 Chief complaint: Shortness of breath History of present illness: This is a very pleasant 60-year-old female patient with a past medical history s ignificant for advanced chronic obstructive pulmonary disease as well as a stage IV metastatic breast cancer as well as history of chronic tobacco use who was admitted to the hospital with increasing shortness of breath and she was diagnosed with acute exacerbation of COPD. She was tested negative for COVID- 19. The patient has been followed by the pulmonary critical care team for the last few days. She has no history of coronary artery disease or congestive heart failure or cardiac arrhythmia. Requested to see the patient because of cardiac arrhythmia. The patient last night she was walking to her bathroom when she did have an episode of 8 beats of nonsustained ventricular tachycardia and she was completely asymptomatic during these episodes. Electrolytes are within normal limits. An echocardiogram during this admission revealed normal left ventricular systolic function without significant valvular abnormalities. Currently the patient denies any symptoms of heart racing or fluttering or dizziness or lightheadedness or presyncope or syncope and denies any symptoms of chest pain or chest discomfort. 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 History of Any Multi-Drug Resistant Organisms: None Reported Past Surgical History: Hysterectomy, Orthopedic Surgery Additional Past Surgical History / Comment(s): Cervical cone bx at age 22 yrs, bilateral mastectomies/multiple implants d/t ruptures, D&C, total hysterectomy, VAT/bx, infusaport-since removed, L ACL repair and multiple L knee arthroscopic surgeries, bilateral thumbs trigger finger surgeries, EGDS/colonoscopies with be nign polypectomy, L7 kyphoplasty/rods/screws. Past Anesthesia/Blood Transfusion Reactions: Postoperative Nausea & Vomiting (PONV) Smoking Status: Former smoker - Past Family History Father Family Medical History: Cancer Additional Family Medical History / Comment(s): Patient reports her father of lung cancer at age 59. Brother(s) Additional Family Medical History / Comment(s): Patient has to penicillin major medical problems. Patient has 2 sisters with no major medical problems. Patient has one daughter with no major medical problems. Mother Family Medical History: No Reported History Additional Family Medical History / Comment(s): Mother is healthy and 84 yrs old. Medications and Allergies Home Medications Medication Instructions Recorded Confirmed Type Omeprazole 20 mg PO DAILY 09/05/15 06/30/21 History Venlafaxine HCl [Effexor XR] 150 mg PO DAILY 09/05/15 06/30/21 History amLODIPine [Norvasc] 10 mg PO DAILY 08/27/18 06/30/21 History ARIPiprazole [Abilify] 2 mg PO HS 06/30/21 06/30/21 History Fluticasone/Vilanterol [Breo 1 puff INHALATION RT-DAILY 06/30/21 06/30/21 History Ellipta 200-25 Mcg Inhaler] HYDROcodone/APAP 10-325MG [[place] 1 tab PO Q6HR PRN 06/30/21 06/30/21 History 10-325] Ipratropium-Albuterol Nebulize 3 ml INHALATION RT-Q4H PRN 06/30/21 06/30/21 History [Duoneb 0.5 mg-3 mg/3 ml Soln] LORazepam [Ativan] 1 mg PO TID PRN 06/30/21 06/30/21 History Palbociclib [Ibrance] 75 mg PO DIRECTED 06/30/21 06/30/21 History Allergies Allergy/AdvReac Type Severity Reaction Status Date / Time levofloxacin Allergy Rash/Hives Verified 06/30/21 14:08 ondansetron HCl AdvReac Severe Increased Verified 06/30/21 14:08 [From Zofran (as QT interval hydrochloride)] prochlorperazine edisylate AdvReac Severe Increased Verified 06/30/21 14:08 [From Compazine] QT interval prochlorperazine maleate AdvReac Severe Increased Verified 06/30/21 14:08 [From Compazine] QT Interval Physical Exam Vitals: Vital Signs Temp Pulse Pulse Resp BP Pulse Ox 07/12/21 11:32 99 07/12/21 11:26 101 H 07/12/21 08:32 103 H 07/12/21 08:24 100 07/12/21 08:17 98 97 07/12/21 08:00 97.4 F L 97 20 126/85 98 07/12/21 01:46 98.1 F 102 H 117/80 95 07/11/21 21:21 108 H 07/11/21 21:07 110 H 07/11/21 20:55 108 H 07/11/21 19:48 98.5 F 104 H 16 128/74 95 07/11/21 19:45 102 H 16 07/11/21 15:59 112 H 07/11/21 15:49 110 H 07/11/21 14:00 98.4 F 109 H 20 127/76 93 L Intake and Output 07/11/21 07/12/21 07/12/21 22:59 06:59 14:59 Other: Voiding Method Bedside Commode Bedside Commode # Voids 3 # Bowel Movements 1 - Constitutional General appearance: no acute distress - Respiratory Respiratory: bilateral: diminished - Cardiovascular Rhythm: regular Heart sounds: normal: S1, S2 Results 07/12/21 06:08 07/12/21 06:08 Cardiac Enzymes 07/11/21 07/12/21 Range/Units 16:17 06:08 AST 27 (13-35) U/L Troponin I 0.013 (0.000-0.034) ng/mL CBC 07/12/21 Range/Units 06:08 WBC 9.44 (4.50-10.00) X 10*3/uL RBC 4.07 L (4.10-5.20) X 10*6/uL Hgb 13.1 (12.0-15.0) g/dL Hct 43.6 (37.2-46.3) % Plt Count 267 (140-440) X 10*3/uL Comprehensive Metabolic Panel 07/12/21 Range/Units 06:08 Sodium 136 (135-145) mmol/L Potassium 5.2 (3.5-5.5) mmol/L Chloride 86 L (96-109) mmol/L Carbon Dioxide 42.3 H* (21.6-31.8) mmol/L BUN 16.8 (9.0-27.0) mg/dL Creatinine 0.5 L (0.6-1.5) mg/dL Glucose 190 H (70-110) mg/dL Calcium 9.5 (8.7-10.3) mg/dL AST 27 (13-35) U/L ALT 51 H (8-44) U/L Alkaline Phosphatase 87 (41-126) U/L Total Protein 6.3 (6.2-8.2) g/dL Albumin 4.2 (3.8-4.9) g/dL Current Medications Generic Name Dose Route Start Last Admin Trade Name Freq PRN Reason Stop Dose Admin Acetaminophen 650 mg 06/30/21 14:22 07/10/21 16:16 Acetaminophen Tab 325 Mg Tab PO 650 mg Q6HR PRN Administration Mild Pain or Fever > 100.5 Hydrocodone Bitart/Acetaminophen 1 each 06/30/21 22:39 Hydrocodone/Apap 10-325mg 1 Each Tab PO Q6HR PRN Pain Albuterol/Ipratropium 3 ml 06/30/21 22:39 Ipratropium-Albuterol 3 Ml Neb INHALATION RT-Q4H PRN Shortness Of Breath Albuterol/Ipratropium 3 ml 07/12/21 08:00 07/12/21 11:25 Ipratropium-Albuterol 3 Ml Neb INHALATION 3 ml RT-QID SUNDEEP Administration Aripiprazole 2 mg 06/30/21 21:45 07/12/21 08:55 Aripiprazole 2 Mg Tab PO 2 mg DAILY SUNDEEP Administration Aripiprazole 2 mg 07/01/21 21:00 07/11/21 23:21 Aripiprazole 2 Mg Tab PO 2 mg HS SUNDEEP Administration Artificial Tears 2 drops 07/05/21 16:00 07/12/21 08:58 Artificial Tears-Hypromellose Drops 15 Ml Btl BOTH EYES 2 drops TID SUNDEEP Administration Budesonide 1 mg 07/01/21 08:00 07/12/21 08:15 Budesonide 1 Mg/2 Ml Nebu INHALATION 1 mg RT-BID SUNDEEP Administration Buspirone HCl 10 mg 07/08/21 09:45 07/12/21 08:56 Buspirone Hcl 10 Mg Tab PO 10 mg BID SUNDEEP Administration Clonidine HCl 1 patch 07/06/21 10:30 07/06/21 11:44 Clonidine 0.2 Mg/24hr Patch TRANSDERM 1 patch Q7D SUNDEEP Administration Enoxaparin Sodium 40 mg 07/02/21 11:15 07/12/21 08:56 Enoxaparin 40 Mg/0.4 Ml Syringe SQ 40 mg DAILY SUNDEEP Administration Fluconazole 100 mg 07/08/21 09:45 07/12/21 08:56 Fluconazole 100 Mg Tab PO 100 mg DAILY SUNDEEP Administration Formoterol Fumarate 20 mcg 07/01/21 20:00 07/12/21 08:14 Formoterol Fumarate 20 Mcg/2 Ml Nebu INHALATION 20 mcg RT-BID SUNDEEP Administration Guaifenesin/Dextromethorphan 10 ml 07/10/21 12:00 07/12/21 06:06 Guaifenesin-Dm 100-10mg/5ml 10 Ml Cup PO Not Given Q6HR SUNDEEP Insulin Aspart 0 unit 07/01/21 12:30 07/12/21 08:56 Insulin Aspart (Novolog) 100 Unit/Ml Vial SQ 5 unit ACHS SUNDEEP Administration Protocol Insulin Aspart 4 unit 07/12/21 12:30 Insulin Aspart (Novolog) 100 Unit/Ml Vial SQ AC-TID SUNDEEP Insulin Detemir 23 unit 07/11/21 21:00 07/11/21 23:20 Insulin Detemir (Levemir) 100 Unit/Ml Syr SQ 23 unit HS SUNDEEP Administration Lorazepam 0.5 mg 07/07/21 13:00 07/12/21 08:56 Lorazepam 0.5 Mg Tab PO 0.5 mg QID SUNDEEP Administration Methylprednisolone Sodium Succinate 40 mg 07/11/21 16:00 07/12/21 08:56 Methylprednisolone Sod Succi 40 Mg/Ml 1 Ml Vial IV 40 mg Q8HR SUNDEEP Administration Naloxone HCl 0.2 mg 06/30/21 14:22 Naloxone 0.4 Mg/Ml 1 Ml Vial IV Q2M PRN Opioid Reversal Palbociclib [Ibrance 75 mg 07/02/21 09:00 07/12/21 08:57 ] 75 Mg Tablet PO 75 mg DAILY SUNDEEP Administration Ondansetron HCl 4 mg 07/12/21 10:27 07/12/21 10:48 Ondansetron 4 Mg/2 Ml Vial IVP 4 mg Q6HR PRN Administration Nausea And Vomiting Pantoprazole Sodium 40 mg 07/01/21 09:00 07/12/21 08:55 Pantoprazole 40 Mg Tablet PO 40 mg DAILY SUNDEEP Administration Saliva Substitute 1 spray 07/07/21 13:00 07/12/21 08:57 Dry Mouth [place] 44.3 [place]/44.3 Ml [place] MUCOUS MEM 1 spray QID SUNDEEP Administration Senna/Docusate Sodium 2 each 07/09/21 11:45 07/12/21 08:56 Sennosides-Docusate Sodium 1 Each Tab PO 2 each DAILY SUNDEEP Administration Theophylline 300 mg 07/02/21 21:00 07/11/21 23:21 Theophylline 24 Hour 300 Mg Cap.Er.24h PO 300 mg HS SUNDEEP Administration Venlafaxine HCl 150 mg 07/01/21 09:00 07/12/21 08:56 Venlafaxine Hcl Er 150 Mg Cap PO 150 mg DAILY SUNDEEP Administration Intake and Output 07/11/21 07/12/21 07/12/21 22:59 06:59 14:59 Other: Voiding Method Bedside Commode Bedside Commode # Voids 3 # Bowel Movements 1 07/12/21 06:08 07/12/21 06:08 Assessment and Plan Assessment: Assessment #1 acute exacerbation of COPD #2 stage IV metastatic breast cancer #3 one episode of nonsustained V. tach in the setting of normal LV function #4 chronic nicotine use #5 multiple comorbid conditions Plan #1 I would just continue the current medical regimen #2 the echo showed normal left ventricular systolic function #3 monitor the electrolytes including the magnesium and potassium and correct for any electrolytes abnormalities #4 consider adding a small dose of calcium channel madeline if the nonsustained V. tach occurs again #5 follow-up with the patient on when necessary K
[2021-07-12 16:32] LABS: Glucose,Whole Blood 202 mg/dL (75-99)
[2021-07-12 20:18] LABS: Glucose,Whole Blood 146 mg/dL (75-99)
[2021-07-12] MEDS: INSULIN DETEMIR (LEVEMIR) 100 UNIT/ML SYR SQ SCH (21:51)
[2021-07-12] MEDS: THEOPHYLLINE 24 HOUR 300 MG CAP.ER.24H PO SCH (21:52)
[2021-07-13] MEDS: methylPREDNISolone SOD SUCCI 40 MG/ML 1 ML VIAL IV SCH ×3 (00:37→16:51)
[2021-07-13] MEDS: guaiFENesin-DM 100-10MG/5ML 10 ML CUP PO SCH ×4 (00:37→16:52)
[2021-07-13 06:35] LABS: HCT 38.5 % (34.0-46.0); HGB 12.3 gm/dL (11.4-16.0); MCHC 31.9 g/dL (31.0-37.0); MCV 103.3 fL (80.0-100.0); Macrocytosis Slight; Mean Platelet Volume 6.7; Platelet Count 235 k/uL (150-450); RBC 3.72 m/uL (3.80-5.40); RDW 14.3 % (11.5-15.5); WBC 7.9 k/uL (3.8-10.6)
[2021-07-13 07:39] LABS: Glucose,Whole Blood 196 mg/dL (75-99)
[2021-07-13] MEDS: ENOXAPARIN 40 MG/0.4 ML SYRINGE SQ SCH (08:09)
[2021-07-13] MEDS: INSULIN ASPART (NovoLOG) 100 UNIT/ML VIAL SQ SCH ×7 (08:09→21:15)
[2021-07-13] MEDS: FLUCONAZOLE 100 MG TAB PO SCH (08:10)
[2021-07-13] MEDS: ARIPiprazole 2 MG TAB PO SCH ×2 (08:10→22:46)
[2021-07-13] MEDS: busPIRone HCl 10 MG TAB PO SCH ×2 (08:10→22:46)
[2021-07-13] MEDS: LORazepam 0.5 MG TAB PO SCH ×4 (08:10→22:45)
[2021-07-13] MEDS: PANTOPRAZOLE 40 MG TABLET PO SCH (08:10)
[2021-07-13] MEDS: VENLAFAXINE HCL ER 150 MG CAP PO SCH (08:10)
[2021-07-13] MEDS: SENNOSIDES-DOCUSATE SODIUM 1 EACH TAB PO SCH (08:10)
[2021-07-13] MEDS: DRY MOUTH SPRAY 44.3 SPRAY/44.3 ML SPRAY MUCOUS MEM SCH ×4 (08:13→22:47)
[2021-07-13] MEDS: ARTIFICIAL TEARS-HYPROMELLOSE DROPS 15 ML BTL BOTH EYES SCH ×3 (08:13→22:47)
[2021-07-13] MEDS: FORMOTEROL FUMARATE 20 MCG/2 ML NEBU INHALATION SCH ×2 (08:15→20:22)
[2021-07-13] MEDS: BUDESONIDE 1 MG/2 ML NEBU INHALATION SCH ×2 (08:15→20:22)
[2021-07-13] MEDS: IPRATROPIUM-ALBUTEROL 3 ML NEB INHALATION SCH ×4 (08:15→20:22)
[2021-07-13] MEDS: ONDANSETRON 4 MG/2 ML VIAL IVP PRN (08:17)
[2021-07-13] MEDS: guaiFENesin 600 MG TABLET.ER PO SCH ×2 (10:35→22:46)
[2021-07-13] MEDS: cloNIDine 0.2 MG/24HR PATCH TRANSDERM SCH (10:35)
[2021-07-13 11:53] LABS: Glucose,Whole Blood 243 mg/dL (75-99)
--- NOTE | 2021-07-13 12:50 | XR ---
EXAMINATION TYPE: XR chest 1V portable DATE OF EXAM: 07/13/2021 COMPARISON: 07/08/2021, 09/13/2017, 09/14/2018, 10/19/2018 INDICATION: Dyspnea TECHNIQUE: Single frontal view of the chest is obtained. FINDINGS: The heart size is normal. The pulmonary vasculature is normal. Mild left lower lobe infiltrate has developed. Correlate for atelectasis and pneumonia. Some increase d lung markings on the right present previously. Correlate for scarring or atelectasis. Underlying ri ght mid lung mass is not excluded and continued follow-up is recommended. IMPRESSION: 1. Developing left lower lobe infiltrate. Correlate for atelectasis or pneumonia. 2. Increased lung markings on the right present previously. Some increasing nodularity however may be present underlying mass is not excluded.
[2021-07-13 15:35] LABS: ALT 40 U/L (8-44); AST 19 U/L (13-35); African American GFR (CKD) 124.5 (60.0-200.0); Albumin 3.7 g/dL (3.8-4.9); Albumin/Globulin Ratio 2.09 (1.60-3.17); Alkaline Phosphatase 72 U/L (41-126); BUN/Creat Ratio 31.63 Ratio (12.00-20.00); Blood Urea Nitrogen 15.5 mg/dL (9.0-27.0); Calcium 9.2 mg/dL (8.7-10.3); Carbon Dioxide 43.9 mmol/L (21.6-31.8); Chloride 87 mmol/L (96-109); Globulin 1.8 g/dL (1.6-3.3); Glucose 234 mg/dL (70-110); Non-African American GFR(CKD) 107.4 (60.0-200.0); Potassium 5.1 mmol/L (3.5-5.5); Sodium 138 mmol/L (135-145); Total Bilirubin <0.20 mg/dL (0.30-1.20); Total Protein 5.5 g/dL (6.2-8.2)
--- NOTE | 2021-07-13 15:40 | P.PN ---
Subjective Progress Note Date: 07/13/21 Principal diagnosis: Acute exacerbation of COPD 2020, the patient is sitting up on a chair. She is off the BiPAP. She is still on 7 L of oxygen by nasal cannula. Working on incentive spirometer. Her cough is less congested on today's evaluation. No new complaints otherwise for now. Using incentive spirometer. No chest pain. No other complaints otherwise pH is a bit irritated and anxious knowing that she has been in the hospital for the past 12 days. Nevertheless, she was admitted with severe COPD exacerbation and she end up staying on the BiPAP for several days and for now in the process of weaning down the FiO2 gradually. She is currently on IV Solu-Me drol 40 mg every 8 hours. He is also using bronchodilators [id number]. She is on Mucinex. Reevaluated today on 07/13/21, patient is basically about the same, not much improvement noted over the last few days, the improvement is very minimal. And her O2 saturation is marginal. Continues to have intermittent cough wheezing and shortness of breath. And intermittently she was placed on BiPAP. Remains on IV Solu-Medrol. 40 mg IV push every 8 hours. Remains on bronchodilators. And her chest x-ray today is showing a left lower lobe infiltrate, highly suspicious for pneumonia. There is also increased lung markings on the right with increased nodularity. CBC is relatively normal electrolytes are normal however her bicarb is 44. Patient is known to have history of end-stage COPD, not the most ideal candidate for bronchoscopy and BAL. Objective - Vital Signs Vital signs: Vital Signs Temp 97.9 F 07/13/21 08:00 Pulse 96 07/13/21 15:28 Resp 18 07/13/21 08:00 BP 130/86 07/13/21 08:00 Pulse Ox 88 L 07/13/21 08:00 Intake & Output 07/12/21 07/13/21 07/13/21 18:59 06:59 18:59 Weight 67.132 kg Other: Voiding Method Bedside Commode Bedside Commode # Voids 2 1 # Bowel Movements 0 - Exam GENERAL EXAM: 60-year-old female, in no distress, on 9 L high flow nasal cannula. HEAD: Normocephalic/atraumatic. HEENT: PERRLA, EOMI, nonicteric, chronic masses, no rigidity. CHEST: No chest wall deformity. Symmetrical expansion. LUNGS: diminished breath sounds bilaterally diffuse wheezes, diffuse improved air entry bilaterally, and there is some crackles at bilateral bases CVS: Regular rate and rhythm, normal S1 and S2, no gallops, no murmurs, no rubs ABDOMEN: Soft, nontender. No hepatosplenomegaly, normal bowel sounds, no guarding or rigidity. EXTREMITIES: No clubbing, no edema, no cyanosis, 2+ pulses and upper and lower extremities. MUSCULOSKELETAL: Muscle strength and tone normal. SKIN: No rashes CENTRAL NERVOUS SYSTEM: Alert and oriented 3 in no gross focal deficits. PSYCHIATRIC: Normal mood affect and normal mental status examination. - Labs CBC & Chem 7: 07/13/21 05:53 07/12/21 06:08 Labs: Abnormal Lab Results - Last 24 Hours (Table) 07/12/21 07/12/21 07/13/21 Range/Units 16:30 20:17 05:53 RBC 3.72 L (3.80-5.40) m/uL MCV 103.3 H (80.0-100.0) fL POC Glucose (mg/dL) 202 H 146 H (75-99) mg/dL 07/13/21 07/13/21 Range/Units 07:03 11:51 RBC (3.80-5.40) m/uL MCV (80.0-100.0) fL POC Glucose (mg/dL) 196 H 243 H (75-99) mg/dL Assessment and Plan Assessment: Impression: Acute on chronic hypoxic and hypercapnic respiratory failure secondary to severe COPD exacerbation, and suspect a left lower lobe pneumonia, hospital acquired. History of severe end-stage COPD. History of metastatic stage IV breast cancer Chronic tobacco dependence. History of Alysha's syndrome. Oropharyngeal candidiasis. Steroids induced hyperglycemia. Benign essential hypertension. History of depression. Recommendation: Continue bronchodilators. Continue antibiotics. Titrate oxygen accordingly. Increase the dose of Solu-Medrol. Continue Robitussin. Continue GI and DVT prophylaxis. Prognosis remains poor and guarded. Could consider bronchoscopy, however patient is relatively high risk for potential intubation CODE STATUS remains DO NOT RESUSCITATE. Time with Patient: Less than 30
[2021-07-13 16:52] LABS: Glucose,Whole Blood 183 mg/dL (75-99)
[2021-07-13] MEDS: PIPERACILLIN-TAZOBACTAM 3.375 GM in SODIUM CHLORIDE 0.9% 100 ML IVPB SCH (16:52)
--- NOTE | 2021-07-13 19:32 | P.PN ---
Subjective Progress Note Date: 07/13/21 HISTORY OF PRESENT ILLNESS 60-year-old female one of Dr. 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 Also patient had abdominal uterine and fallopian metastasis from breast cancer with total hysterectomy. Patient had respiratory failure on and off in the past has been on home O2 she was hospitalized at [facility] over a month ago for COPD excessive patient was treated and done well. Patient developed to have much worsening shortness of breath cough wheezes try outpatient management not successful ended up seen Dr. Devi fleming and had apparently steroid injection along with antibiotics which did not help ended up in the emergency department at [facility] in the afternoon on 06/30/2021. At the time was seen she was quite hypoxic was having inspiratory expiratory wheezes and significant worsening symptoms. Her COVID-19 by PCR was negative chest x-ray showed COPD with right perihilar and chronic atelectasis with scar tissue. She was diagnosed with COPD excessive patient with severe bronchitis started on IV antibiotic along with IV steroids and bronchodilator pulse ox remained to be low require 4 L of O2 to keep pulse ox above 90 percentile. She was hospitalized with above problem. 07/01: Patient is seen today in the emergency center [facility]. She has been started on IV Solu-Medrol and NovoLog scale will be added. IV fluids will be discontinued. She has been seen by Dr. Saldivar and Pulmicort and Perforomist added. Patient states that she is feeling much better breathing status is improved from yesterday most likely secondary to steroids. She has been afebrile, heart rate 103, blood pressure 124/90, pulse ox 94% on 3 L nasal cannula. Patient voices that she wishes to BE a no code. 07/02: Complaints of worsening shortness of breath this morning. She did have a good evening and did not take evening nebulizer treatment. She has increased shortness of breath the pulse ox is 92% on 4 L nasal cannula but patient states that her breathing is not good this morning. D-dimer ordered as well as chest x-ray and Ativan were ordered by home medicine. Patient verbalizes that she does not want to go on BiPAP. She remains on Solu-Medrol 60 mg IV every 6 hours 07/03: A-Team was called this morning at midnight this patient was found unresponsive with agonal breathing. Patient was placed on BiPAP and woke up shortly after. Pulmonary medicine has added and theophylline, continue Solu- Medrol 60 mg IV every 6 hours, nebulizers, Pulmicort, Perforomist. Chest x-ray from yesterday afternoon revealed persistent thickening within the periphery of the right mid lung currently measuring 1 cm in thickness which is increased from 2019. CT chest is recommended. Neoplasm is not excluded. CT angiogram of the chest revealed no acute pulmonary embolism. Patient has been afebrile, heart rate 100, blood pressure 145/88, respiratory rate 30, pulse ox 88% on BiPAP. R epeat Covid 19 testing ordered. 07/04: Patient currently is on BiPAP chain, for hypercapnic failure, hasn't had any regular meals, she is requesting to restart back her Ativan as she is panicking with the BiPAP in her face. She has no lightheadedness dizziness, has poor sleep, diminished appetite, she is known to have stage IV metastatic breast cancer, with last treatment in June 2021, using a ibrance and folslodex 07/05: Patient is on BiPAP, complaining of dry eye, still not sleeping at night, has daughter at bedside, updated regarding treatment plan, echocardiogram is requested to eval for pulmonary hypertension, vitals are stable, melatonin added on top of when necessary Ativan 07/06: Patient remains on BiPAP which she has been on 24 hours per day with FiO2 50%. She remains on IV steroids and nebulizer treatments, Pulmicort, and theophylline. The patient is requesting that Ativan be increased to 1 mg which we will do 07/07: Patient continues to have respiratory difficulty, and remains on bipap ATC. Pulse ox 93% on FiO2 50%. Patient is more sedated today and Ativan will be decreased to 0.5 mg but increased frequency to qid. Patient has been afebrile, HR 114, BP 132/92. CBG 154-238. 07/08: Patient complains that she did not sleep last night and still having dif ficulty with anxiety. Buspar 10 mg bid added. Also added Diflucan for thrush and added cardiac monitoring due to interaction with medication that could increase QT prolongation.patient remains on BiPAP around the clock. Pulse ox is 89% on 50% FiO2. She's been afebrile, heart rate 107, blood pressure 150/82. Blood sugar jumped up to 416 and 386 for which scheduled NovoLog will be added. 07/09: Patient is now on high flow nasal cannula at 10 L with pulse ox of 93%. She's been afebrile, heart rate in the low 100s, blood pressure 117/72. Blood sugars showed improvement with changes made to insulins with blood sugars running between 166 and 267. She does not have history of diabetes but will most likely require medication at discharge due to steroids. She appears to be more comfortable today. She states she has a little cough. Incentive spirometry will be added. 07/10: Patient's breathing status continues to improve. She is now on oxygen at 8 L nasal cannula maintaining good pulse ox. She remains afebrile, heart rate in the low 100s, blood pressure 111/70. She states she slept better last night. Blood sugar last evening was 64 and she did not receive Levemir last night. She is on scheduled NovoLog and NovoLog scale. 07/11: Patient evaluated this morning. Patient is now on 6 L of O2 and is currently satting at 87-90%. She is afebrile with a temperature of 98.4, heart rate 104, respiratory of 16, blood pressure 139/82. She continues on bronchodilators as well as steroids with IV Solu-Medrol 60 mg every 6 hours. Glucose elevated secondary to steroids she'll continue on NovoLog 7 units 3 times a day along with sliding scale and Levemir 23 units at at bedtime. 07/12: Patient evaluated this morning, patient is now on high flow nasal cannula at 9 L, O2 saturation is 97%. Temperature 97.4, heart rate 97, respiratory 20, blood pressure 126/85. Glucose still has spotting running high with occasional lows, yesterday loss was 70, highest was 373. Steroids were decreased to 40 mg every 8 hours. Insulin was adjusted NovoLog from 7 units to 4 units and Detemir 23 units at at bedtime. Patient has complaints of nausea Zofran was also added. Patient is very weak will have PT evaluate for the possibility of rehab 07/13: PO 99% on 7L at rest. Lung sounds are improving. Pulmonary has increased solu-medrol from 40 mg IV every 8 hours to 60 mg every 8 hours and Zosyn. She states that she was up in chair today for several hours and is now exhausted. Expect PT to work with patient this week. Her dc plan is for subacute rehab and social work is following. Possible discharge iat the earliest n 48 hours. REVIEW OF SYSTEMS Constitutional: No fever, no chills, no night sweats. Generalized weakness, noted fatigue or lethargy. No daytime sleepiness. EENT: No headache. No blurred vision or double vision, no loss of vision. No loss of Hearing, no ringing in the ears, no dizziness. No epistaxis no sore throat. Lungs: Positive shortness of breath reported cough reported wheezes. Continued shortness of breath at rest, improving very slowly. Cardiovascular: No chest pain, no lower extremity edema. No palpitations. No paroxysmal nocturnal dyspnea. No orthopnea. No lightheadedness or dizziness. No syncopal episodes. Abdominal: No abdominal pain. No nausea, vomiting. No diarrhea. No constipation. No bloody or tarry stools.. No loss of appetite. Genitourinary: No dysuria, increased frequency, urgency. No urinary retention. Musculoskeletal: No myalgias. No muscle weakness, no gait dysfunction, no frequent falls. No back pain. No neck pain. Integumentary: No wounds, no lesions. No rash or pruritus. No unusual bruising. No change in hair or nails. Neurologic: No aphasia. No facial droop. No change in mentation. No head injury. No headache. No paralysis. No paresthesia. Psychiatric: No depression. Reports anxiety. No mood swings. Endocrine: Noted abnormal blood sugars with hypoglycemia and hyperglycemia. PHYSICAL EXAMINATION Gen: This is a 60-year-old female laying in bed currently on nasal cannula oxygen maintaining PO in the high 90s. HEENT: Head is atraumatic, normocephalic. Pupils equal, round. Sclerae is anicteric. NECK: Supple. No JVD. No lymphadenopathy. No thyromegaly. LUNGS: Decreased breath sounds bilateral rhonchi positive inspiratory expiratory wheezes. Noted mild accessory muscle usage and intercostal retractions. HEART: Regular rate and rhythm. No murmur. ABDOMEN: Soft. Bowel sounds are present. No masses. No tenderness. EXTREMITIES: No pedal edema. No calf tenderness. NEUROLOGICAL: Patient is awake, alert and oriented x3. Cranial nerves 2 through 12 are grossly intact. Generalized significant weakness and significant generalized weakness. ASSESSMENT AND PLAN 1. Acute on chronic hypoxic respiratory failure: Combination of COPD exacerbation or never get an along with severe bronchitis. Off of BiPAP, Solu- Medrol 60 mg IV every 8 hours, DuoNeb treatments every 4 hours scheduled and as needed, zosyn IVPB, Pulmicort 1 mg twice daily, Perforomist twice daily, theophylline 300 mg at bedtime. Pulmonary is following. 2. COPD exacerbation With worsening symptoms, continue patient on IV steroid, continue DuoNeb along with Pulmicort. 3. Severe purulent tracheal bronchitis: Continue patient on antibiotic she received 1 dose of Rocephin, continue azithromycin 250 mg a day. 4. Advance breast cancer with lung metastasis: Still seen oncology still on immune oh therapy. 5. hypertension: Patient has been on amlodipine 10 mg a day continue medication. 6. Recurrent depression: Continue patient on Abilify 2 mg twice a day along with lorazepam and Effexor. 7. Hyperglycemia secondary 2 steroids. Continue Accu-Chek with sliding scales coverage and add NovoLog 4 units with meals and also pulmonary added Levemir 23 units. 8. GI prophylaxis: Patient will be on pantoprazole 40 mg daily. 9. DVT prophylaxis: Patient will be on heparin subcutaneous. 10. Dry mouth. Mouthkote qid. 11. General anxiety disorder. Ativan 0.5 mg qid, add BuSpar 10 mg twice daily. 12. Oral thrush. Patient started on Diflucan 100 mg daily. 13. Nausea. Zofan 14. Debility. Will have physical therapy reassess for the possibility of subacute rehab upon discharge 13. CODE STATUS: No code. 14. COVID-19 testing negative. DISCHARGE PLAN Subacute rehab later this week Impression and plan of care have been directed as dictated by the signing physician. Arleen Gamez nurse practitioner acting as scribe for signing physician. Objective - Vital Signs Vital signs: Vital Signs Temp 97.9 F 07/13/21 08:00 Pulse 104 H 10/25/21 08:19 Resp 18 07/13/21 08:00 BP 130/86 07/13/21 08:00 Pulse Ox 88 L 07/13/21 08:00 Intake & Output 07/12/21 07/13/21 07/13/21 18:59 06:59 18:59 Other: Voiding Method Bedside Commode Bedside Commode # Voids 2 1 # Bowel Movements 0 - Labs CBC & Chem 7: 07/13/21 05:53 07/13/21 05:53 Labs: Abnormal Lab Results - Last 24 Hours (Table) 07/12/21 07/12/21 07/12/21 Range/Units 06:08 11:31 16:30 RBC (3.80-5.40) m/uL MCV (80.0-100.0) fL Chloride 86 L (96-109) mmol/L Carbon Dioxide 42.3 H* (21.6-31.8) mmol/L Creatinine 0.5 L (0.6-1.5) mg/dL BUN/Creatinine Ratio 32.43 H (12.00-20.00) Ratio Glucose 190 H (70-110) mg/dL POC Glucose (mg/dL) 268 H 202 H (75-99) mg/dL Total Bilirubin 0.20 L (0.30-1.20) mg/dL ALT 51 H (8-44) U/L 07/12/21 07/13/21 07/13/21 Range/Units 20:17 05:53 07:03 RBC 3.72 L (3.80-5.40) m/uL MCV 103.3 H (80.0-100.0) fL Chloride (96-109) mmol/L Carbon Dioxide (21.6-31.8) mmol/L Creatinine (0.6-1.5) mg/dL BUN/Creatinine Ratio (12.00-20.00) Ratio Glucose (70-110) mg/dL POC Glucose (mg/dL) 146 H 196 H (75-99) mg/dL Total Bilirubin (0.30-1.20) mg/dL ALT (8-44) U/L
[2021-07-13 21:00] LABS: Glucose,Whole Blood 108 mg/dL (75-99)
[2021-07-13] MEDS: INSULIN DETEMIR (LEVEMIR) 100 UNIT/ML SYR SQ SCH (21:16)
[2021-07-13] MEDS: THEOPHYLLINE 24 HOUR 300 MG CAP.ER.24H PO SCH (22:46)
[2021-07-14] MEDS: PIPERACILLIN-TAZOBACTAM 3.375 GM in SODIUM CHLORIDE 0.9% 100 ML IVPB SCH ×3 (01:12→16:56)
[2021-07-14] MEDS: guaiFENesin-DM 100-10MG/5ML 10 ML CUP PO SCH ×4 (01:12→16:56)
[2021-07-14] MEDS: methylPREDNISolone SOD SUCCI 40 MG/ML 1 ML VIAL IV SCH ×3 (01:23→16:55)
[2021-07-14 06:55] LABS: Glucose,Whole Blood 250 mg/dL (75-99)
[2021-07-14] MEDS: ENOXAPARIN 40 MG/0.4 ML SYRINGE SQ SCH (07:24)
[2021-07-14] MEDS: INSULIN ASPART (NovoLOG) 100 UNIT/ML VIAL SQ SCH ×7 (07:26→22:17)
[2021-07-14] MEDS: guaiFENesin 600 MG TABLET.ER PO SCH ×2 (07:27→22:17)
[2021-07-14] MEDS: busPIRone HCl 10 MG TAB PO SCH ×2 (07:27→22:17)
[2021-07-14] MEDS: LORazepam 0.5 MG TAB PO SCH ×5 (07:27→22:20)
[2021-07-14] MEDS: FLUCONAZOLE 100 MG TAB PO SCH (07:27)
[2021-07-14] MEDS: VENLAFAXINE HCL ER 150 MG CAP PO SCH (07:27)
[2021-07-14] MEDS: SENNOSIDES-DOCUSATE SODIUM 1 EACH TAB PO SCH (07:27)
[2021-07-14] MEDS: PANTOPRAZOLE 40 MG TABLET PO SCH (07:27)
[2021-07-14] MEDS: ARIPiprazole 2 MG TAB PO SCH ×2 (07:28→22:17)
[2021-07-14] MEDS: DRY MOUTH SPRAY 44.3 SPRAY/44.3 ML SPRAY MUCOUS MEM SCH ×4 (07:29→22:18)
[2021-07-14] MEDS: ARTIFICIAL TEARS-HYPROMELLOSE DROPS 15 ML BTL BOTH EYES SCH ×3 (07:29→22:18)
[2021-07-14] MEDS: IPRATROPIUM-ALBUTEROL 3 ML NEB INHALATION SCH ×4 (08:29→21:17)
[2021-07-14] MEDS: BUDESONIDE 1 MG/2 ML NEBU INHALATION SCH ×2 (08:29→21:30)
[2021-07-14] MEDS: FORMOTEROL FUMARATE 20 MCG/2 ML NEBU INHALATION SCH ×2 (08:29→21:17)
[2021-07-14 11:32] LABS: Glucose,Whole Blood 263 mg/dL (75-99)
--- NOTE | 2021-07-14 15:25 | P.PN ---
Subjective Progress Note Date: 07/14/21 HISTORY OF PRESENT ILLNESS 60-year-old female one of Dr. 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 Also patient had abdominal uterine and fallopian metastasis from breast cancer with total hysterectomy. Patient had respiratory failure on and off in the past has been on home O2 she was hospitalized at [facility] over a month ago for COPD excessive patient was treated and done well. Patient developed to have much worsening shortness of breath cough wheezes try outpatient management not successful ended up seen Dr. Devi fleming and had apparently steroid injection along with antibiotics which did not help ended up in the emergency department at [facility] in the afternoon on 06/30/2021. At the time was seen she was quite hypoxic was having inspiratory expiratory wheezes and significant worsening symptoms. Her COVID-19 by PCR was negative chest x-ray showed COPD with right perihilar and chronic atelectasis with scar tissue. She was diagnosed with COPD excessive patient with severe bronchitis started on IV antibiotic along with IV steroids and bronchodilator pulse ox remained to be low require 4 L of O2 to keep pulse ox above 90 percentile. She was hospitalized with above problem. 07/01: Patient is seen today in the emergency center waiting for a [facility] bed. She has been started on IV Solu-Medrol and NovoLog scale will be added. IV fluids will be discontinued. She has been seen by Dr. Saldivar and Pulmicort and Perforomist added. Patient states that she is feeling much better breathing status is improved from yesterday most likely secondary to steroids. She has been afebrile, heart rate 103, blood pressure 124/90, pulse ox 94% on 3 L nasal cannula. Patient voices that she wishes to BE a no code. 07/02: Complaints of worsening shortness of breath this morning. She did have a good evening and did not take evening nebulizer treatment. She has increased shortness of breath the pulse ox is 92% on 4 L nasal cannula but patient states that her breathing is not good this morning. D-dimer ordered as well as chest x-ray and Ativan were ordered by home medicine. Patient verbalizes that she does not want to go on BiPAP. She remains on Solu-Medrol 60 mg IV every 6 hours 07/03: A-Team was called this morning at midnight this patient was found unresponsive with agonal breathing. Patient was placed on BiPAP and woke up shortly after. Pulmonary medicine has added and theophylline, continue Solu- Medrol 60 mg IV every 6 hours, nebulizers, Pulmicort, Perforomist. Chest x-ray from yesterday afternoon revealed persistent thickening within the periphery of the right mid lung currently measuring 1 cm in thickness which is increased from 2019. CT chest is recommended. Neoplasm is not excluded. CT angiogram of the chest revealed no acute pulmonary embolism. Patient has been afebrile, heart rate 100, blood pressure 145/88, respiratory rate 30, pulse ox 88% on BiPAP. R epeat Covid 19 testing ordered. 07/04: Patient currently is on BiPAP chain, for hypercapnic failure, hasn't had any regular meals, she is requesting to restart back her Ativan as she is panicking with the BiPAP in her face. She has no lightheadedness dizziness, has poor sleep, diminished appetite, she is known to have stage IV metastatic breast cancer, with last treatment in June 2021, using a ibrance and folslodex 07/05: Patient is on BiPAP, complaining of dry eye, still not sleeping at night, has daughter at bedside, updated regarding treatment plan, echocardiogram is requested to eval for pulmonary hypertension, vitals are stable, melatonin added on top of when necessary Ativan 07/06: Patient remains on BiPAP which she has been on 24 hours per day with FiO2 50%. She remains on IV steroids and nebulizer treatments, Pulmicort, and theophylline. The patient is requesting that Ativan be increased to 1 mg which we will do 07/07: Patient continues to have respiratory difficulty, and remains on bipap ATC. Pulse ox 93% on FiO2 50%. Patient is more sedated today and Ativan will be decreased to 0.5 mg but increased frequency to qid. Patient has been afebrile, HR 114, BP 132/92. CBG 154-238. 07/08: Patient complains that she did not sleep last night and still having dif ficulty with anxiety. Buspar 10 mg bid added. Also added Diflucan for thrush and added cardiac monitoring due to interaction with medication that could increase QT prolongation.patient remains on BiPAP around the clock. Pulse ox is 89% on 50% FiO2. She's been afebrile, heart rate 107, blood pressure 150/82. Blood sugar jumped up to 416 and 386 for which scheduled NovoLog will be added. 07/09: Patient is now on high flow nasal cannula at 10 L with pulse ox of 93%. She's been afebrile, heart rate in the low 100s, blood pressure 117/72. Blood sugars showed improvement with changes made to insulins with blood sugars running between 166 and 267. She does not have history of diabetes but will most likely require medication at discharge due to steroids. She appears to be more comfortable today. She states she has a little cough. Incentive spirometry will be added. 07/10: Patient's breathing status continues to improve. She is now on oxygen at 8 L nasal cannula maintaining good pulse ox. She remains afebrile, heart rate in the low 100s, blood pressure 111/70. She states she slept better last night. Blood sugar last evening was 64 and she did not receive Levemir last night. She is on scheduled NovoLog and NovoLog scale. 07/11: Patient evaluated this morning. Patient is now on 6 L of O2 and is currently satting at 87-90%. She is afebrile with a temperature of 98.4, heart rate 104, respiratory of 16, blood pressure 139/82. She continues on bronchodilators as well as steroids with IV Solu-Medrol 60 mg every 6 hours. Glucose elevated secondary to steroids she'll continue on NovoLog 7 units 3 times a day along with sliding scale and Levemir 23 units at at bedtime. 07/12: Patient evaluated this morning, patient is now on high flow nasal cannula at 9 L, O2 saturation is 97%. Temperature 97.4, heart rate 97, respiratory 20, blood pressure 126/85. Glucose still has spotting running high with occasional lows, yesterday loss was 70, highest was 373. Steroids were decreased to 40 mg every 8 hours. Insulin was adjusted NovoLog from 7 units to 4 units and Detemir 23 units at at bedtime. Patient has complaints of nausea Zofran was also added. Patient is very weak will have PT evaluate for the possibility of rehab 07/13: PO 99% on 7L at rest. Lung sounds are improving. Pulmonary has increased solu-medrol from 40 mg IV every 8 hours to 60 mg every 8 hours and Zosyn. She states that she was up in chair today for several hours and is now exhausted. Expect PT to work with patient this week. Her dc plan is for subacute rehab and social work is following. Possible discharge iat the earliest n 48 hours. 07/14 patient examined best continues to remain off 7 L high flow. Chest x-ray obtained yesterday suggestive of left lower lobe infiltrate highly suspicious for pneumonia. Patient continues to remain on Zosyn. Patient is a high risk for bronchoscopy for pulmonary. Patient recommended incentive spirometry 10 times an hour. Labs from yesterday suggestive of CBC with hemoglobin 12.3 patient has significant CO2 retention at 43.9 creatinine 0.5 glucose 234 ordered. Continue DuoNeb as needed for shortness of breath. Solu-Medrol increased to 80 3 times a day. Continue Pulmicort twice daily REVIEW OF SYSTEMS Constitutional: No fever, no chills, no night sweats. Generalized weakness, noted fatigue or lethargy. No daytime sleepiness. EENT: No headache. No blurred vision or double vision, no loss of vision. No loss of Hearing, no ringing in the ears, no dizziness. No epistaxis no sore throat. Lungs: Positive shortness of breath reported cough reported wheezes. Continued shortness of breath at rest, improving very slowly. Cardiovascular: No chest pain, no lower extremity edema. No palpitations. No p aroxysmal nocturnal dyspnea. No orthopnea. No lightheadedness or dizziness. No syncopal episodes. Abdominal: No abdominal pain. No nausea, vomiting. No diarrhea. No constipation. No bloody or tarry stools.. No loss of appetite. Genitourinary: No dysuria, increased frequency, urgency. No urinary retention. Musculoskeletal: No myalgias. No muscle weakness, no gait dysfunction, no frequent falls. No back pain. No neck pain. Integumentary: No wounds, no lesions. No rash or pruritus. No unusual bruising. No change in hair or nails. Neurologic: No aphasia. No facial droop. No change in mentation. No head injury. No headache. No paralysis. No paresthesia. Psychiatric: No depression. Reports anxiety. No mood swings. Endocrine: Noted abnormal blood sugars with hypoglycemia and hyperglycemia. PHYSICAL EXAMINATION Gen: This is a 60-year-old female laying in bed currently on nasal cannula oxygen maintaining PO in the high 90s. HEENT: Head is atraumatic, normocephalic. Pupils equal, round. Sclerae is anicteric. NECK: Supple. No JVD. No lymphadenopathy. No thyromegaly. LUNGS: Decreased breath sounds bilateral rhonchi positive inspiratory expiratory wheezes. Noted mild accessory muscle usage and intercostal retractions. HEART: Regular rate and rhythm. No murmur. ABDOMEN: Soft. Bowel sounds are present. No masses. No tenderness. EXTREMITIES: No pedal edema. No calf tenderness. NEUROLOGICAL: Patient is awake, alert and oriented x3. Cranial nerves 2 through 12 are grossly intact. Generalized significant weakness and significant generalized weakness. ASSESSMENT AND PLAN 1. Acute on chronic hypoxic respiratory failure: Combination of COPD exacerbation or never get an along with severe bronchitis. Off of BiPAP, Solu- Medrol 60 mg IV every 8 hours, DuoNeb treatments every 4 hours scheduled and as needed, zosyn IVPB, Pulmicort 1 mg twice daily, Perforomist twice daily, theophylline 300 mg at bedtime. Pulmonary is following. 2. COPD exacerbation With worsening symptoms, continue patient on IV steroid, continue DuoNeb along with Pulmicort. 3. Hospital-acquired pneumonia with Severe purulent tracheal bronchitis: Continue patient on antibiotic she received 1 dose of Rocephin, continue az ithromycin 250 mg a day. Initiated patient on Zosyn. 4. Advance breast cancer with lung metastasis: Still seen oncology still on immune oh therapy. 5. hypertension: Patient has been on amlodipine 10 mg a day continue medication. 6. Recurrent depression: Continue patient on Abilify 2 mg twice a day along with lorazepam and Effexor. 7. Hyperglycemia secondary 2 steroids. Continue Accu-Chek with sliding scales coverage and add NovoLog 4 units with meals and also pulmonary added Levemir 23 units. 8. GI prophylaxis: Patient will be on pantoprazole 40 mg daily. 9. DVT prophylaxis: Patient will be on heparin subcutaneous. 10. Dry mouth. Mouthkote qid. 11. General anxiety disorder. Ativan 0.5 mg qid, add BuSpar 10 mg twice daily. 12. Oral thrush. Patient started on Diflucan 100 mg daily. 13. Nausea. Zofan 14. Debility. Will have physical therapy reassess for the possibility of subacute rehab upon discharge 13. CODE STATUS: No code. 14. COVID-19 testing negative. Objective - Vital Signs Vital signs: Vital Signs Temp 97.8 F 07/14/21 14:00 Pulse 111 H 07/14/21 14:00 Resp 20 07/14/21 14:00 BP 136/90 07/14/21 14:00 Pulse Ox 94 L 07/14/21 14:00 Intake & Output 07/13/21 07/14/21 07/14/21 18:59 06:59 18:59 Weight 67.132 kg Other: Voiding Method Bedside Commode # Voids 3 2 - Labs CBC & Chem 7: 07/13/21 05:53 07/13/21 05:53 Labs: Abnormal Lab Results - Last 24 Hours (Table) 07/13/21 07/13/21 07/13/21 Range/Units 05:53 16:33 20:58 Chloride 87 L (96-109) mmol/L Carbon Dioxide 43.9 H* (21.6-31.8) mmol/L Creatinine 0.5 L (0.6-1.5) mg/dL BUN/Creatinine Ratio 31.63 H (12.00-20.00) Ratio Glucose 234 H (70-110) mg/dL POC Glucose (mg/dL) 183 H 108 H (75-99) mg/dL Total Bilirubin <0.20 L (0.30-1.20) mg/dL Total Protein 5.5 L (6.2-8.2) g/dL Albumin 3.7 L (3.8-4.9) g/dL 07/14/21 07/14/21 Range/Units 06:54 11:31 Chloride (96-109) mmol/L Carbon Dioxide (21.6-31.8) mmol/L Creatinine (0.6-1.5) mg/dL BUN/Creatinine Ratio (12.00-20.00) Ratio Glucose (70-110) mg/dL POC Glucose (mg/dL) 250 H 263 H (75-99) mg/dL Total Bilirubin (0.30-1.20) mg/dL Total Protein (6.2-8.2) g/dL Albumin (3.8-4.9) g/dL
--- NOTE | 2021-07-14 15:41 | P.PN ---
Subjective Progress Note Date: 07/14/21 Principal diagnosis: Acute exacerbation of COPD This is a 57-year-old white female patient with past medical history of severe COPD, stage IV metastatic breast cancer most recently patient was on Ibrance and Foslodex ( last treatment was on June 26, 2021) patient follows at the [facility] for her breast cancer care, with previous radiation therapy, hypertension, hyperlipidemia, depression, anxiety. Patient is status post bilateral mastectomy and oophorectomy at the [facility]. Patient presented to the emergency department on 06/30/2021 for evaluation of increased cough, and dyspnea and this has been going on since Tuesday. She went to see Dr. Azevedo in the office and was given a steroid injection, she has not improved, she denies any fever or chills, she has been vaccinated against coronavirus. Her cough is mostly nonproductive, no complaints of central chest pain, swelling or pain. Her chest x-ray shows COPD with right perihilar chronic atelectasis or scarring, based on comparison to previous images. COVID-19 PCR was negative, lab work was reviewed, white blood cell count was normal at 4.3, hemoglobin was 12.12, correlation profile was within normal limits, sodium is 134, potassium is 4.3, chloride is 93, CO2 32, BUN is 9, creatinine 0.49, LFTs were within normal limits. Patient was started on empiric antibiotics, IV steroids and bronchodilators, and we were asked to see the patient consultation. This morning she seen resting on a gurney in the emergency department, she is awaiting a bed on the medical surgical unit, vital signs are stable, she is in sinus mechanism with a rate of 107, pulse ox is 91% on 4 L, patient usually wears 2 L on a regular basis. On 07/02/2021 patient seen in follow-up on the medical surgical floor, patient thinks that her breathing is worse today, she is very tight bronchospastic very short of breath, she is on 4 L of oxygen pulse ox of 92-94%. Afebrile, hemodynamically she is stable, she is on IV Solu-Medrol 60 mg every 8 hours, she is on Pulmicort and Perforomist, is on antibiotics. She's had no fever or chills, she tested negative for COVID-19. Repeat chest x-ray was obtained showing persistent thickening within the periphery of the right lung, small right pleural effusion. Her pro-calcitonin was negative on admission is 0.09, blood cell count is normal at 4.3, hemoglobin was 12.2, was no evidence of fluid overload. He is bringing up some yellowish colored sputum, she is on azithromycin for antibiotic coverage. No swelling in lower extremities. She is receiving when necessary Ativan for anxiety. On today's evaluation on 07/03/2021 patient is seen in follow-up. Overnight her breathing continued to worsen, patient was quite bronchospastic last night, with labored breathing, and did become less responsive. Rapid response team was called, blood gas was obtained showing pO2 of 288, pCO2 of greater than 120, pH of 7.06. Patient was placed on BiPAP support with pressures of 12 and 5 and FiO2 of 100%, FiO2 has since been dropped down to 40%. This morning she remains on BiPAP support, she started to wake up, to provide some basic answers, although is she still very dyspneic to talk in sentences. Sounds are positive for diffuse wheezes. Yesterday's chest x-ray noted a persistent density within the periphery of the right midlung, with a consideration for atelectasis. Underlying mass could not be completely excluded. CTA chest was obtained last night going no evidence of pulmonary embolism, spinal or hilar adenopathy by CT criteria, lung windows were clear. Vision is maximized on medical treatment, she remains on IV Solu-Medrol 60 mg every 6 hours, azithromycin, Pulmicort, Perforomist, DuoNeb, yesterday we added aspirin 300 mg at bedtime. Her pro calcitonin level was negative this admission 0.09, COVID-19 PCR was negative, yesterday's blood work was fairly unremarkable, d-dimer was -0.56. On 07/05/2021 patient seen in follow-up on medical surgical floor. She remains on BiPAP support, she is of 12 and 6 and FiO2 of 50%, pulse ox is 89%, her follow up ABGs from yesterday was improving, with pH of 7.32, pCO2 of 94, and pO2 of 191, this was done 100% FiO2 which had since been dropped to 50%. Patient is currently maximized on medical treatment, she is on IV steroids with Solu-Medrol 60 g every 6 hours, she is on nebulized bronchodilators, She is on theophylline, she is on empiric antibiotics. Still very dyspneic, tight and wheezy. Not coughing any phlegm up. No chest pain. CT angiogram of chest showed no evidence of pulmonary embolism. Patient is very anxious as well, she's been getting as needed doses of Ativan. GI and DVT prophylaxis. overall much more awake, and responsive. On 07/06/2021 patient seen in follow-up on medical surgical floor, she currently remains on BiPAP with pressures of 12 and 6 on FiO2 of 50%. Any attempt to switch her to high flow nasal cannula was unsuccessful and the patient quickly desaturates down to low 80s and becomes very dyspneic. She has however moving better air on today's exam, still has diffuse wheezes, but there is better air entry noted bilaterally, breathing slightly better, patient is maximized on medical treatment including IV steroids, nebulized bronchodilators. She is on Pulmicort, PerforomistAlejandra, she remains on theophylline, Ativan has been increased to 1 mg 3 times a day for episodes of anxiety. Today's labs have been reviewed, no evidence of leukocytosis, white blood cell count is 7.16, hemoglobin is 12.5, CO2 is 38, chloride is 88, BUN is 16 and creatinine 0.[address] electrolytes are fairly unremarkable. No fever or chills. On 07/07/2021 patient seen in follow-up on medical surgical floor, she remains on BiPAP with pressures of 12 and 6 and FiO2 of 50%, she is awake and alert, she responds to verbal questions, seems to be breathing better, still has diffuse wheezes, but seems to be achieving good volumes up to 500 mL on the BiPAP sup port. On today's evaluation patient also had some scattered crackles at the bilateral bases. IV fluids have been discontinued, overall she is in -600 mL net fluid balance, she has not been able to take in much by mouth secondary to being BiPAP dependent, her daughter is at the bedside, she states her mother has not been able to eat any meals, however she has been drinking nutritional supplements. Patient continues on nebulized bronchodilators, she is on IV steroids with Solu-Medrol 60 mg every 6 hours, she is on theophylline, and she is receiving lorazepam 0.5 mg 4 times daily on a scheduled basis for anxiety. Echocardiogram showed preserved LV function with no significant valvular dysfu nction, there was no aortic stenosis or regurgitation, mild mitral regurgitation, mild tricuspid regurgitation, right-sided pressures were less than 35 mmHg. On 07/14/2021 patient seen in follow-up on medical surgical floor. She is breathing fairly comfortably, not requiring any BiPAP support, she is currently on 7 L of oxygen pulse ox 94%. Appears generally weak, but no acute distress. Afebrile, hemodynamically she stable. Her chest x-ray from yesterday showed developing left lower lobe infiltrate. Rocephin was added for empiric antibiotic coverage, patient remains on IV steroids with Solu-Medrol 60 mg every 8 hours, in addition to nebulized bronchodilators. No new labs today. Continue current medical treatment. Clinically no worsening since yesterday, patient remains off BiPAP support and tolerating it well. Objective - Vital Signs Vital signs: Vital Signs Temp 97.8 F 07/14/21 14:00 Pulse 111 H 07/14/21 14:00 Resp 20 07/14/21 14:00 BP 136/90 07/14/21 14:00 Pulse Ox 94 L 07/14/21 14:00 Intake & Output 07/13/21 07/14/21 07/14/21 18:59 06:59 18:59 Weight 67.132 kg Other: Voiding Method Bedside Commode # Voids 3 2 - Exam GENERAL EXAM: Awake and responsive, comfortable, appears fatigued and generally weak, but not distressed 60-year-old white female, 7 L of oxygen pulse ox of 94% HEAD: Normocephalic/atraumatic. EYES: Normal reaction of pupils, equal size. Conjunctiva pink, sclera white. NOSE: Clear with pink turbinates. THROAT: No erythema or exudates. NECK: No masses, no JVD, no thyroid enlargement, no adenopathy. CHEST: No chest wall deformity. Symmetrical expansion. LUNGS: diminished breath sounds bilaterally with basilar crackles, especially at the left base CVS: Regular rate and rhythm, normal S1 and S2, no gallops, no murmurs, no rubs ABDOMEN: Soft, nontender. No hepatosplenomegaly, normal bowel sounds, no guarding or rigidity. EXTREMITIES: No clubbing, no edema, no cyanosis, 2+ pulses and upper and lower extremities. MUSCULOSKELETAL: Muscle strength and tone normal. SPINE: No scoliosis or deformity SKIN: No rashes CENTRAL NERVOUS SYSTEM: Alert and oriented -3. No focal deficits, tone is norm al in all 4 extremities. PSYCHIATRIC: Alert and oriented -3. Appropriate affect. Intact judgment and insight. - Labs CBC & Chem 7: 07/13/21 05:53 07/13/21 05:53 Labs: Abnormal Lab Results - Last 24 Hours (Table) 07/13/21 07/13/21 07/13/21 Range/Units 05:53 16:33 20:58 Chloride 87 L (96-109) mmol/L Carbon Dioxide 43.9 H* (21.6-31.8) mmol/L Creatinine 0.5 L (0.6-1.5) mg/dL BUN/Creatinine Ratio 31.63 H (12.00-20.00) Ratio Glucose 234 H (70-110) mg/dL POC Glucose (mg/dL) 183 H 108 H (75-99) mg/dL Total Bilirubin <0.20 L (0.30-1.20) mg/dL Total Protein 5.5 L (6.2-8.2) g/dL Albumin 3.7 L (3.8-4.9) g/dL 07/14/21 07/14/21 Range/Units 06:54 11:31 Chloride (96-109) mmol/L Carbon Dioxide (21.6-31.8) mmol/L Creatinine (0.6-1.5) mg/dL BUN/Creatinine Ratio (12.00-20.00) Ratio Glucose (70-110) mg/dL POC Glucose (mg/dL) 250 H 263 H (75-99) mg/dL Total Bilirubin (0.30-1.20) mg/dL Total Protein (6.2-8.2) g/dL Albumin (3.8-4.9) g/dL Assessment and Plan Plan: assessment: #1. Acute exacerbation of chronic obstructive pulmonary disease, no evidence of acute pulmonary process on the chest x-ray, COVID 19 PCR was negative, patient is status post completed COVID-19 vaccination. #2. Stage IV metastatic breast cancer, status post bilateral mastectomy and oophorectomy, patient follows at the [facility] for her cancer care, she is currently on Ibrance and Foslodex, last treatment was 06/26/2021 #3. Acute developing left lower lobe pneumonia, currently on Zosyn #4. History of COPD, on home oxygen, usually wears 2 L on a regular basis, baseline FEV1 is 37% of predicted #5. History of chronic tobacco dependence #6. Hypertension #7. Depression #8. History of Alysha syndrome #9. Acute on chronic hypoxic and hypercapnic respiratory failure related to acute exacerbation of COPD, chest x-ray showed right midlung density, with possibility of atelectasis, CTA chest showed no evidence of pulmonary embolism, lung windows were clear, no mediastinal or hilar adenopathy. She was placed on BiPAP support on which she remains with pressures of 12 and 5 and FiO2 of 50% Plan: Continue Zosyn Continue nebulized bronchodilators and IV steroids Continue weaning FiO2 to keep O2 sats ration is at or above 90% Follow-up labs tomorrow Sputum culture Follow-up chest x-ray I performed a history & physical examination of the patient and discussed their management with my nurse practitioner, Mere Ruth. I reviewed the nurse practitioner's note and agree with the documented findings and plan of care. Lung sounds are positive for diffuse wheezes throughout the lung [place]. The findings and the impression was discussed with the patient. I attest to the documentation by the nurse practitioner. #4. Time with Patient: Less than 30
[2021-07-14 16:22] LABS: Glucose,Whole Blood 212 mg/dL (75-99)
[2021-07-14 20:52] LABS: Glucose,Whole Blood 202 mg/dL (75-99)
[2021-07-14] MEDS: INSULIN DETEMIR (LEVEMIR) 100 UNIT/ML SYR SQ SCH (22:16)
[2021-07-14] MEDS: THEOPHYLLINE 24 HOUR 300 MG CAP.ER.24H PO SCH (22:18)
[2021-07-15] MEDS: PIPERACILLIN-TAZOBACTAM 3.375 GM in SODIUM CHLORIDE 0.9% 100 ML IVPB SCH ×2 (00:07→07:48)
[2021-07-15] MEDS: methylPREDNISolone SOD SUCCI 40 MG/ML 1 ML VIAL IV SCH ×2 (00:07→07:47)
[2021-07-15] MEDS: guaiFENesin-DM 100-10MG/5ML 10 ML CUP PO SCH ×4 (00:08→16:46)
[2021-07-15 06:56] LABS: Glucose,Whole Blood 172 mg/dL (75-99)
[2021-07-15] MEDS: busPIRone HCl 10 MG TAB PO SCH ×2 (07:49→20:43)
[2021-07-15] MEDS: guaiFENesin 600 MG TABLET.ER PO SCH ×2 (07:50→22:30)
[2021-07-15] MEDS: PANTOPRAZOLE 40 MG TABLET PO SCH (07:50)
[2021-07-15] MEDS: SENNOSIDES-DOCUSATE SODIUM 1 EACH TAB PO SCH (07:50)
[2021-07-15] MEDS: VENLAFAXINE HCL ER 150 MG CAP PO SCH (07:50)
[2021-07-15] MEDS: LORazepam 0.5 MG TAB PO SCH ×5 (07:50→22:30)
[2021-07-15] MEDS: ENOXAPARIN 40 MG/0.4 ML SYRINGE SQ SCH (07:51)
[2021-07-15] MEDS: DRY MOUTH SPRAY 44.3 SPRAY/44.3 ML SPRAY MUCOUS MEM SCH ×4 (07:51→22:31)
[2021-07-15] MEDS: FLUCONAZOLE 100 MG TAB PO SCH (07:51)
--- NOTE | 2021-07-15 08:42 | XR ---
EXAMINATION TYPE: XR chest 1V portable DATE OF EXAM: 07/15/2021 HISTORY: Shortness of breath. COMPARISON: 07/13/2021 TECHNIQUE: Single view of the chest is submitted. FINDINGS: Demonstrated are scattered senescent parenchymal change. Persistent atelectasis or infiltrate right midlung zone and left lower lobe. No significant change. The heart is stable. Hilar and mediastinal structures are within normal limits. Degenerative changes are seen of the dorsal spine. IMPRESSION: 1. Persistent atelectasis or infiltrate right midlung zone and left lower lobe. No significant clark e.
[2021-07-15] MEDS: INSULIN ASPART (NovoLOG) 100 UNIT/ML VIAL SQ SCH ×9 (08:48→20:43)
[2021-07-15] MEDS: BUDESONIDE 1 MG/2 ML NEBU INHALATION SCH ×2 (09:13→19:54)
[2021-07-15] MEDS: FORMOTEROL FUMARATE 20 MCG/2 ML NEBU INHALATION SCH ×2 (09:13→19:54)
[2021-07-15] MEDS: IPRATROPIUM-ALBUTEROL 3 ML NEB INHALATION SCH ×4 (09:13→19:54)
[2021-07-15 09:20] LABS: Basophils # (A) 0.01 X 10*3/uL (0.00-0.10); Basophils % (A) 0.1 %; Eosinophils # (A) 0 X 10*3/uL (0.04-0.35); Eosinophils % (A) 0 %; HCT 34.6 % (37.2-46.3); HGB 10.6 g/dL (12.0-15.0); Lymphocytes # (A) 0.18 X 10*3/uL (0.90-5.00); Lymphocytes % (A) 2.3 %; MCHC 30.6 g/dL (32.0-37.0); MCV 107.8 fL (80.0-97.0); Mean Platelet Volume 9.2 fL (9.5-12.2); Monocytes # (A) 0.22 X 10*3/uL (0.20-1.00); Monocytes % (A) 2.8 %; Neutrophils % (A) 93.5 %; Platelet Count 194 X 10*3/uL (140-440); RBC 3.21 X 10*6/uL (4.10-5.20); RDW 13.4 % (11.5-14.5); WBC 7.91 X 10*3/uL (4.50-10.00)
[2021-07-15 09:57] LABS: African American GFR (CKD) 123.6 (60.0-200.0); BUN/Creat Ratio 27.4 Ratio (12.00-20.00); Blood Urea Nitrogen 13.7 mg/dL (9.0-27.0); Calcium 8.7 mg/dL (8.7-10.3); Non-African American GFR(CKD) 106.7 (60.0-200.0); Potassium 4.1 mmol/L (3.5-5.5)
[2021-07-15] MEDS: ARIPiprazole 2 MG TAB PO SCH ×2 (10:20→20:44)
[2021-07-15] MEDS: ARTIFICIAL TEARS-HYPROMELLOSE DROPS 15 ML BTL BOTH EYES SCH ×3 (10:21→22:31)
[2021-07-15] MEDS ORDERED: HALOPERIDOL LACTATE 5 MG/ML 1 ML VIAL IM PRN (11:39)
[2021-07-15] MEDS ORDERED: HALOPERIDOL LACTATE 5 MG/ML 1 ML VIAL IM STA (11:41)
[2021-07-15 12:04] LABS: Glucose,Whole Blood 155 mg/dL (75-99)
[2021-07-15] MEDS: AMOXIC-POT CLAV 875-125MG 1 EACH TAB PO SCH ×2 (12:58→20:44)
--- NOTE | 2021-07-15 14:36 | P.PN ---
Subjective Progress Note Date: 07/15/21 Principal diagnosis: Acute exacerbation of COPD This is a 57-year-old white female patient with past medical history of severe COPD, stage IV metastatic breast cancer most recently patient was on Ibrance and Foslodex ( last treatment was on June 26, 2021) patient follows at the [facility] for her breast cancer care, with previous radiation therapy, hypertension, hyperlipidemia, depression, anxiety. Patient is status post bilateral mastectomy and oophorectomy at the [facility]. Patient presented to the emergency department on 06/30/2021 for evaluation of increased cough, and dyspnea and this has been going on since Tuesday. She went to see Dr. Azevedo in the office and was given a steroid injection, she has not improved, she denies any fever or chills, she has been vaccinated against coronavirus. Her cough is mostly nonproductive, no complaints of central chest pain, swelling or pain. Her chest x-ray shows COPD with right perihilar chronic atelectasis or scarring, based on comparison to previous images. COVID-19 PCR was negative, lab work was reviewed, white blood cell count was normal at 4.3, hemoglobin was 12.12, correlation profile was within normal limits, sodium is 134, potassium is 4.3, chloride is 93, CO2 32, BUN is 9, creatinine 0.49, LFTs were within normal limits. Patient was started on empiric antibiotics, IV steroids and bronchodilators, and we were asked to see the patient consultation. This morning she seen resting on a gurney in the emergency department, she is awaiting a bed on the medical surgical unit, vital signs are stable, she is in sinus mechanism with a rate of 107, pulse ox is 91% on 4 L, patient usually wears 2 L on a regular basis. On 07/02/2021 patient seen in follow-up on the medical surgical floor, patient thinks that her breathing is worse today, she is very tight bronchospastic very short of breath, she is on 4 L of oxygen pulse ox of 92-94%. Afebrile, hemodynamically she is stable, she is on IV Solu-Medrol 60 mg every 8 hours, she is on Pulmicort and Perforomist, is on antibiotics. She's had no fever or chills, she tested negative for COVID-19. Repeat chest x-ray was obtained showing persistent thickening within the periphery of the right lung, small right pleural effusion. Her pro-calcitonin was negative on admission is 0.09, blood cell count is normal at 4.3, hemoglobin was 12.2, was no evidence of fluid overload. He is bringing up some yellowish colored sputum, she is on azithromycin for antibiotic coverage. No swelling in lower extremities. She is receiving when necessary Ativan for anxiety. On today's evaluation on 07/03/2021 patient is seen in follow-up. Overnight her breathing continued to worsen, patient was quite bronchospastic last night, with labored breathing, and did become less responsive. Rapid response team was called, blood gas was obtained showing pO2 of 288, pCO2 of greater than 120, pH of 7.06. Patient was placed on BiPAP support with pressures of 12 and 5 and FiO2 of 100%, FiO2 has since been dropped down to 40%. This morning she remains on BiPAP support, she started to wake up, to provide some basic answers, although is she still very dyspneic to talk in sentences. Sounds are positive for diffuse wheezes. Yesterday's chest x-ray noted a persistent density within the periphery of the right midlung, with a consideration for atelectasis. Underlying mass could not be completely excluded. CTA chest was obtained last night going no evidence of pulmonary embolism, spinal or hilar adenopathy by CT criteria, lung windows were clear. Vision is maximized on medical treatment, she remains on IV Solu-Medrol 60 mg every 6 hours, azithromycin, Pulmicort, Perforomist, DuoNeb, yesterday we added aspirin 300 mg at bedtime. Her pro calcitonin level was negative this admission 0.09, COVID-19 PCR was negative, yesterday's blood work was fairly unremarkable, d-dimer was -0.56. On 07/05/2021 patient seen in follow-up on medical surgical floor. She remains on BiPAP support, she is of 12 and 6 and FiO2 of 50%, pulse ox is 89%, her follow up ABGs from yesterday was improving, with pH of 7.32, pCO2 of 94, and pO2 of 191, this was done 100% FiO2 which had since been dropped to 50%. Patient is currently maximized on medical treatment, she is on IV steroids with Solu-Medrol 60 g every 6 hours, she is on nebulized bronchodilators, She is on theophylline, she is on empiric antibiotics. Still very dyspneic, tight and wheezy. Not coughing any phlegm up. No chest pain. CT angiogram of chest showed no evidence of pulmonary embolism. Patient is very anxious as well, she's been getting as needed doses of Ativan. GI and DVT prophylaxis. overall much more awake, and responsive. On 07/06/2021 patient seen in follow-up on medical surgical floor, she currently remains on BiPAP with pressures of 12 and 6 on FiO2 of 50%. Any attempt to switch her to high flow nasal cannula was unsuccessful and the patient quickly desaturates down to low 80s and becomes very dyspneic. She has however moving better air on today's exam, still has diffuse wheezes, but there is better air entry noted bilaterally, breathing slightly better, patient is maximized on medical treatment including IV steroids, nebulized bronchodilators. She is on Pulmicort, PerforomistAlejandra, she remains on theophylline, Ativan has been increased to 1 mg 3 times a day for episodes of anxiety. Today's labs have been reviewed, no evidence of leukocytosis, white blood cell count is 7.16, hemoglobin is 12.5, CO2 is 38, chloride is 88, BUN is 16 and creatinine 0.[address] electrolytes are fairly unremarkable. No fever or chills. On 07/07/2021 patient seen in follow-up on medical surgical floor, she remains on BiPAP with pressures of 12 and 6 and FiO2 of 50%, she is awake and alert, she responds to verbal questions, seems to be breathing better, still has diffuse wheezes, but seems to be achieving good volumes up to 500 mL on the BiPAP sup port. On today's evaluation patient also had some scattered crackles at the bilateral bases. IV fluids have been discontinued, overall she is in -600 mL net fluid balance, she has not been able to take in much by mouth secondary to being BiPAP dependent, her daughter is at the bedside, she states her mother has not been able to eat any meals, however she has been drinking nutritional supplements. Patient continues on nebulized bronchodilators, she is on IV steroids with Solu-Medrol 60 mg every 6 hours, she is on theophylline, and she is receiving lorazepam 0.5 mg 4 times daily on a scheduled basis for anxiety. Echocardiogram showed preserved LV function with no significant valvular dysfu nction, there was no aortic stenosis or regurgitation, mild mitral regurgitation, mild tricuspid regurgitation, right-sided pressures were less than 35 mmHg. On 07/14/2021 patient seen in follow-up on medical surgical floor. She is breathing fairly comfortably, not requiring any BiPAP support, she is currently on 7 L of oxygen pulse ox 94%. Appears generally weak, but no acute distress. Afebrile, hemodynamically she stable. Her chest x-ray from yesterday showed developing left lower lobe infiltrate. Rocephin was added for empiric antibiotic coverage, patient remains on IV steroids with Solu-Medrol 60 mg every 8 hours, in addition to nebulized bronchodilators. No new labs today. Continue current medical treatment. Clinically no worsening since yesterday, patient remains off BiPAP support and tolerating it well. On 07/15/2021 patient had episode of agitation, patient was trying to get to the elevator unassisted, and she was trying to go home. She received a dose of Haldol, which significantly calm her down, patient return to her room into her bed with nursing assistance, she is back on 7 L of oxygen he she is breathing fairly comfortably, her pulse ox is 94%. Has not required BiPAP support in the last few days. Lung sounds are diminished, less bronchospastic, some bibasilar crackles. She remains on Solumedrol 60 mg every 8 hours, she remains on Zosyn for possibility of pneumonia, today's follow-up chest x-ray but persistent atelectasis or infiltrate in the right midlung zone and left lower lobe, no significant change. Patient has had no fever or chills, her pro calcitonin level came back low at 0.04 making possibility of bacterial infection less likely. No leukocytosis, white blood cell count is 7.91, hemoglobin is 10.6. Sodium was 139, potassium is 4.1, chloride was 88, CO2 was 42, BUN was 13, creatinine 0.5. No chest discomfort, no hemoptysis. Objective - Vital Signs Vital signs: Vital Signs Temp 97.7 F 07/15/21 07:54 Pulse 98 07/15/21 12:27 Resp 17 07/15/21 07:54 BP 144/92 07/15/21 07:54 Pulse Ox 96 07/15/21 12:18 Intake & Output 07/14/21 07/15/21 07/15/21 18:59 06:59 18:59 Intake Total 1080 Balance 1080 Intake: Oral 1080 Other: Voiding Method Bedside Commode # Voids 3 2 # Bowel Movements 1 - Exam GENERAL EXAM: Awake and responsive, comfortable, appears fatigued and generally weak, but not distressed 60-year-old white female, 7 L of oxygen pulse ox of 94% HEAD: Normocephalic/atraumatic. EYES: Normal reaction of pupils, equal size. Conjunctiva pink, sclera white. NOSE: Clear with pink turbinates. THROAT: No erythema or exudates. NECK: No masses, no JVD, no thyroid enlargement, no adenopathy. CHEST: No chest wall deformity. Symmetrical expansion. LUNGS: diminished breath sounds bilaterally with basilar crackles, especially at the left base CVS: Regular rate and rhythm, normal S1 and S2, no gallops, no murmurs, no rubs ABDOMEN: Soft, nontender. No hepatosplenomegaly, normal bowel sounds, no guarding or rigidity. EXTREMITIES: No clubbing, no edema, no cyanosis, 2+ pulses and upper and lower extremities. MUSCULOSKELETAL: Muscle strength and tone normal. SPINE: No scoliosis or deformity SKIN: No rashes CENTRAL NERVOUS SYSTEM: Alert and oriented -3. No focal deficits, tone is normal in all 4 extremities. PSYCHIATRIC: Alert and oriented -3. Appropriate affect. Intact judgment and insight. - Labs CBC & Chem 7: 07/15/21 05:31 07/15/21 05:31 Labs: Abnormal Lab Results - Last 24 Hours (Table) 07/14/21 07/14/21 07/15/21 Range/Units 16:20 20:50 05:31 RBC 3.21 L (4.10-5.20) X 10*6/uL Hgb 10.6 L (12.0-15.0) g/dL Hct 34.6 L (37.2-46.3) % MCV 107.8 H (80.0-97.0) fL MCH 33.0 H (27.0-32.0) pg MCHC 30.6 L (32.0-37.0) g/dL MPV 9.2 L (9.5-12.2) fL Immature Gran # 0.10 H (0.00-0.04) X 10*3/uL Lymphocytes # 0.18 L (0.90-5.00) X 10*3/uL Eosinophils # 0 L (0.04-0.35) X 10*3/uL Chloride (96-109) mmol/L Carbon Dioxide (21.6-31.8) mmol/L Creatinine (0.6-1.5) mg/dL BUN/Creatinine Ratio (12.00-20.00) Ratio Glucose (70-110) mg/dL POC Glucose (mg/dL) 212 H 202 H (75-99) mg/dL 07/15/21 07/15/21 07/15/21 Range/Units 05:31 06:51 12:02 RBC (4.10-5.20) X 10*6/uL Hgb (12.0-15.0) g/dL Hct (37.2-46.3) % MCV (80.0-97.0) fL MCH (27.0-32.0) pg MCHC (32.0-37.0) g/dL MPV (9.5-12.2) fL Immature Gran # (0.00-0.04) X 10*3/uL Lymphocytes # (0.90-5.00) X 10*3/uL Eosinophils # (0.04-0.35) X 10*3/uL Chloride 88 L (96-109) mmol/L Carbon Dioxide 42.0 H* (21.6-31.8) mmol/L Creatinine 0.5 L (0.6-1.5) mg/dL BUN/Creatinine Ratio 27.40 H (12.00-20.00) Ratio Glucose 176 H (70-110) mg/dL POC Glucose (mg/dL) 172 H 155 H (75-99) mg/dL Assessment and Plan Plan: assessment: #1. Acute exacerbation of chronic obstructive pulmonary disease, no evidence of acute pulmonary process on the chest x-ray, COVID 19 PCR was negative, patient is status post completed COVID-19 vaccination. #2. Stage IV metastatic breast cancer, status post bilateral mastectomy and oophorectomy, patient follows at the [facility] for her cancer care, she is currently on Ibrance and Foslodex, last treatment was 06/26/2021 #3. Acute developing left lower lobe pneumonia, currently on Zosyn, pro- calcitonin level is low at 0.04 #4. History of COPD, on home oxygen, usually wears 2 L on a regular basis, baseline FEV1 is 37% of predicted #5. History of chronic tobacco dependence #6. Hypertension #7. Depression #8. History of Alysha syndrome #9. Acute on chronic hypoxic and hypercapnic respiratory failure related to acute exacerbation of COPD, chest x-ray showed right midlung density, with possibility of atelectasis, CTA chest showed no evidence of pulmonary embolism, lung windows were clear, no mediastinal or hilar adenopathy. She was placed on BiPAP support on which she remains with pressures of 12 and 5 and FiO2 of 50% #10. Anxiety, and agitation, possibly related to medications, acute on chronic hypoxia, and patient was given a dose of Haldol Plan: Patient had a dose of Haldol, and he seemed to have significantly helped her agitation and anxiety She does not seem to be confused, However she gets anxious, and she had attempted to leave the hospital We will switch her to oral prednisone 40 mg daily Chest x-ray has been reviewed, labs have been reviewed Patient can be switched to oral Augmentin We'll continue weaning FiO2 Continue nebulized bronchodilators We'll continue to follow her clinical course She may be placed on BiPAP support at bedtime and as needed through the day for increased shortness of breath We'll continue to follow I performed a history & physical examination of the patient and discussed their management with my nurse practitioner, Mere Ruth. I reviewed the nurse practitioner's note and agree with the documented findings and plan of care. Lung sounds are positive for diffuse wheezes throughout the lung [place]. The findings and the impression was discussed with the patient. I attest to the documentation by the nurse practitioner. #4. Time with Patient: Less than 30
[2021-07-15 15:35] LABS: ABG Base Excess 18.8 mmol/L; ABG Oxygen Saturation 97.3 % (94-97); ABG PH 7.41 (7.35-7.45); ABG PO2 93 mmHg (83-108); Allen Test Performed? Yes
[2021-07-15 15:44] LABS: ABG HCO3 47 mmol/L (21-25); ABG PCO2 75 mmHg (35-45)
--- NOTE | 2021-07-15 16:08 | P.PN ---
Subjective Progress Note Date: 07/15/21 HISTORY OF PRESENT ILLNESS 60-year-old female one of Dr. 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 Also patient had abdominal uterine and fallopian metastasis from breast cancer with total hysterectomy. Patient had respiratory failure on and off in the past has been on home O2 she was hospitalized at [facility] over a month ago for COPD excessive patient was treated and done well. Patient developed to have much worsening shortness of breath cough wheezes try outpatient management not successful ended up seen Dr. Devi fleming and had apparently steroid injection along with antibiotics which did not help ended up in the emergency department at [facility] in the afternoon on 06/30/2021. At the time was seen she was quite hypoxic was having inspiratory expiratory wheezes and significant worsening symptoms. Her COVID-19 by PCR was negative chest x-ray showed COPD with right perihilar and chronic atelectasis with scar tissue. She was diagnosed with COPD excessive patient with severe bronchitis started on IV antibiotic along with IV steroids and bronchodilator pulse ox remained to be low require 4 L of O2 to keep pulse ox above 90 percentile. She was hospitalized with above problem. 07/01: Patient is seen today in the emergency center [facility]. She has been started on IV Solu-Medrol and NovoLog scale will be added. IV fluids will be discontinued. She has been seen by Dr. Saldivar and Pulmicort and Perforomist added. Patient states that she is feeling much better breathing status is improved from yesterday most likely secondary to steroids. She has been afebrile, heart rate 103, blood pressure 124/90, pulse ox 94% on 3 L nasal cannula. Patient voices that she wishes to BE a no code. 07/02: Complaints of worsening shortness of breath this morning. She did have a good evening and did not take evening nebulizer treatment. She has increased shortness of breath the pulse ox is 92% on 4 L nasal cannula but patient states that her breathing is not good this morning. D-dimer ordered as well as chest x-ray and Ativan were ordered by home medicine. Patient verbalizes that she does not want to go on BiPAP. She remains on Solu-Medrol 60 mg IV every 6 hours 07/03: A-Team was called this morning at midnight this patient was found unresponsive with agonal breathing. Patient was placed on BiPAP and woke up shortly after. Pulmonary medicine has added and theophylline, continue Solu- Medrol 60 mg IV every 6 hours, nebulizers, Pulmicort, Perforomist. Chest x-ray from yesterday afternoon revealed persistent thickening within the periphery of the right mid lung currently measuring 1 cm in thickness which is increased from 2019. CT chest is recommended. Neoplasm is not excluded. CT angiogram of the chest revealed no acute pulmonary embolism. Patient has been afebrile, heart rate 100, blood pressure 145/88, respiratory rate 30, pulse ox 88% on BiPAP. R epeat Covid 19 testing ordered. 07/04: Patient currently is on BiPAP chain, for hypercapnic failure, hasn't had any regular meals, she is requesting to restart back her Ativan as she is panicking with the BiPAP in her face. She has no lightheadedness dizziness, has poor sleep, diminished appetite, she is known to have stage IV metastatic breast cancer, with last treatment in June 2021, using a ibrance and folslodex 07/05: Patient is on BiPAP, complaining of dry eye, still not sleeping at night, has daughter at bedside, updated regarding treatment plan, echocardiogram is requested to eval for pulmonary hypertension, vitals are stable, melatonin added on top of when necessary Ativan 07/06: Patient remains on BiPAP which she has been on 24 hours per day with FiO2 50%. She remains on IV steroids and nebulizer treatments, Pulmicort, and theophylline. The patient is requesting that Ativan be increased to 1 mg which we will do 07/07: Patient continues to have respiratory difficulty, and remains on bipap ATC. Pulse ox 93% on FiO2 50%. Patient is more sedated today and Ativan will be decreased to 0.5 mg but increased frequency to qid. Patient has been afebrile, HR 114, BP 132/92. CBG 154-238. 07/08: Patient complains that she did not sleep last night and still having dif ficulty with anxiety. Buspar 10 mg bid added. Also added Diflucan for thrush and added cardiac monitoring due to interaction with medication that could increase QT prolongation.patient remains on BiPAP around the clock. Pulse ox is 89% on 50% FiO2. She's been afebrile, heart rate 107, blood pressure 150/82. Blood sugar jumped up to 416 and 386 for which scheduled NovoLog will be added. 07/09: Patient is now on high flow nasal cannula at 10 L with pulse ox of 93%. She's been afebrile, heart rate in the low 100s, blood pressure 117/72. Blood sugars showed improvement with changes made to insulins with blood sugars running between 166 and 267. She does not have history of diabetes but will most likely require medication at discharge due to steroids. She appears to be more comfortable today. She states she has a little cough. Incentive spirometry will be added. 07/10: Patient's breathing status continues to improve. She is now on oxygen at 8 L nasal cannula maintaining good pulse ox. She remains afebrile, heart rate in the low 100s, blood pressure 111/70. She states she slept better last night. Blood sugar last evening was 64 and she did not receive Levemir last night. She is on scheduled NovoLog and NovoLog scale. 07/11: Patient evaluated this morning. Patient is now on 6 L of O2 and is currently satting at 87-90%. She is afebrile with a temperature of 98.4, heart rate 104, respiratory of 16, blood pressure 139/82. She continues on bronchodilators as well as steroids with IV Solu-Medrol 60 mg every 6 hours. Glucose elevated secondary to steroids she'll continue on NovoLog 7 units 3 times a day along with sliding scale and Levemir 23 units at at bedtime. 07/12: Patient evaluated this morning, patient is now on high flow nasal cannula at 9 L, O2 saturation is 97%. Temperature 97.4, heart rate 97, respiratory 20, blood pressure 126/85. Glucose still has spotting running high with occasional lows, yesterday loss was 70, highest was 373. Steroids were decreased to 40 mg every 8 hours. Insulin was adjusted NovoLog from 7 units to 4 units and Detemir 23 units at at bedtime. Patient has complaints of nausea Zofran was also added. Patient is very weak will have PT evaluate for the possibility of rehab 07/13: PO 99% on 7L at rest. Lung sounds are improving. Pulmonary has increased solu-medrol from 40 mg IV every 8 hours to 60 mg every 8 hours and Zosyn. She states that she was up in chair today for several hours and is now exhausted. Expect PT to work with patient this week. Her dc plan is for subacute rehab and social work is following. Possible discharge iat the earliest n 48 hours. 07/14 patient examined best continues to remain off 7 L high flow. Chest x-ray obtained yesterday suggestive of left lower lobe infiltrate highly suspicious for pneumonia. Patient continues to remain on Zosyn. Patient is a high risk for bronchoscopy for pulmonary. Patient recommended incentive spirometry 10 times an hour. Labs from yesterday suggestive of CBC with hemoglobin 12.3 patient has significant CO2 retention at 43.9 creatinine 0.5 glucose 234 ordered. Continue DuoNeb as needed for shortness of breath. Solu-Medrol increased to 80 3 times a day. Continue Pulmicort twice daily 07/15 patient examined at bedside. Patient episode of agitation this morning requiring 4 mg of IM Haldol. Patient was paranoid and pulling off her IV lines and the oxygen. Soft restraints were applied. Patient takes 1 mg 3 times a day of Ativan at home currently receiving Ativan 0.5 mg every 6 hours and BuSpar. Agitation improved on my assessment. Patient was called and answering questions appropriately . Vitals were reviewed, afebrile , pulse 95, RR17 , BP 144/ 92 oxygen sat 94 L on 7 L high flow . ABG was ordered, ph 7.41, pco2 75,, o2 93, HCO3 47. Chest x-ray suggestive persistent atelectasis or infiltrate in the right mid lung zone and left lower lobe. Daimox initiated at 250 mg po BID. Solu-Medrol switched to prednisone 40 mg by mouth daily. Patient initially on Seroquel 12.5 twice a day. REVIEW OF SYSTEMS Constitutional: No fever, no chills, no night sweats. Generalized weakness, noted fatigue or lethargy. No daytime sleepiness. increased agitation and confusion EENT: No headache. No blurred vision or double vision, no loss of vision. No loss of Hearing, no ringing in the ears, no dizziness. No epistaxis no sore throat. Lungs: Positive shortness of breath reported cough reported wheezes. Continued shortness of breath at rest, improving very slowly. Cardiovascular: No chest pain, no lower extremity edema. No palpitations. No paroxysmal nocturnal dyspnea. No orthopnea. No lightheadedness or dizziness. No syncopal episodes. Abdominal: No abdominal pain. No nausea, vomiting. No diarrhea. No constipation. No bloody or tarry stools.. No loss of appetite. Genitourinary: No dysuria, increased frequency, urgency. No urinary retention. Musculoskeletal: No myalgias. No muscle weakness, no gait dysfunction, no frequent falls. No back pain. No neck pain. Integumentary: No wounds, no lesions. No rash or pruritus. No unusual bruising. No change in hair or nails. Neurologic: No aphasia. No facial droop. No change in mentation. No head injury. No headache. No paralysis. No paresthesia. Psychiatric: No depression. Reports anxiety. No mood swings. Endocrine: Noted abnormal blood sugars with hypoglycemia and hyperglycemia. PHYSICAL EXAMINATION Gen: This is a 60-year-old female laying in bed currently on nasal cannula oxygen maintaining PO in the high 90s. HEENT: Head is atraumatic, normocephalic. Pupils equal, round. Sclerae is anicteric. NECK: Supple. No JVD. No lymphadenopathy. No thyromegaly. LUNGS: Decreased breath sounds bilateral rhonchi positive inspiratory expiratory wheezes. Noted mild accessory muscle usage and intercostal retractions. HEART: Regular rate and rhythm. No murmur. ABDOMEN: Soft. Bowel sounds are present. No masses. No tenderness. EXTREMITIES: No pedal edema. No calf tenderness. NEUROLOGICAL: Patient is awake, alert and oriented x3. Cranial nerves 2 through 12 are grossly intact. Generalized significant weakness and significant generalized weakness. ASSESSMENT AND PLAN 1. Acute on chronic hypoxic hypercapnic respiratory failure: Combination of COPD exacerbation or never get an along with severe bronchitis. Off of BiPAP, Solu-Medrol 60 mg IV every 8 hours, DuoNeb treatments every 4 hours scheduled and as needed, zosyn IVPB, Pulmicort 1 mg twice daily, Perforomist twice daily, theophylline 300 mg at bedtime. Pulmonary is following. 2. COPD exacerbation With worsening symptoms, continue patient on IV steroid, continue DuoNeb along with Pulmicort. 3. Hospital-acquired pneumonia with Severe purulent tracheal bronchitis: Continue patient on antibiotic she received 1 dose of Rocephin, continue azithromycin 250 mg a day. Initiated patient on Zosyn. 4. acute metabolic encephalopathy likely secondary to hypercarbia. ABG suggestive of chronic CO2 retention. Diamox initiated. Seroquel initiated 12.5 twice a day 5. Advance breast cancer with lung metastasis: Still seen oncology still on immune oh therapy. 6. hypertension: Patient has been on amlodipine 10 mg a day continue medication. 7. Recurrent depression: Continue patient on Abilify 2 mg twice a day along with lorazepam and Effexor. 8. Hyperglycemia secondary 2 steroids. Continue Accu-Chek with sliding scales coverage and add NovoLog 4 units with meals and also pulmonary added Levemir 23 units. 9. GI prophylaxis: Patient will be on pantoprazole 40 mg daily. 10. DVT prophylaxis: Patient will be on heparin subcutaneous. 11. Dry mouth. Mouthkote qid. 12. General anxiety disorder. Ativan 0.5 mg qid, add BuSpar 10 mg twice daily. 13. Oral thrush. Patient started on Diflucan 100 mg daily. 14. Nausea. Zofan 15. Debility. physical therapy recommended subacute rehab for patient as patient continues trouble with her endurance and strength. 16. CODE STATUS: No code. 16. COVID-19 testing negative. Objective - Vital Signs Vital signs: Vital Signs Temp 97.7 F 07/15/21 07:54 Pulse 98 07/15/21 12:27 Resp 17 07/15/21 07:54 BP 144/92 07/15/21 07:54 Pulse Ox 96 07/15/21 12:18 Intake & Output 07/14/21 07/15/21 07/15/21 18:59 06:59 18:59 Intake Total 1080 Balance 1080 Intake: Oral 1080 Other: Voiding Method Bedside Commode # Voids 3 2 # Bowel Movements 1 - Labs CBC & Chem 7: 07/15/21 05:31 07/15/21 05:31 Labs: Abnormal Lab Results - Last 24 Hours (Table) 07/14/21 07/14/21 07/15/21 Range/Units 16:20 20:50 05:31 RBC 3.21 L (4.10-5.20) X 10*6/uL Hgb 10.6 L (12.0-15.0) g/dL Hct 34.6 L (37.2-46.3) % MCV 107.8 H (80.0-97.0) fL MCH 33.0 H (27.0-32.0) pg MCHC 30.6 L (32.0-37.0) g/dL MPV 9.2 L (9.5-12.2) fL Immature Gran # 0.10 H (0.00-0.04) X 10*3/uL Lymphocytes # 0.18 L (0.90-5.00) X 10*3/uL Eosinophils # 0 L (0.04-0.35) X 10*3/uL ABG pCO2 (35-45) mmHg ABG HCO3 (21-25) mmol/L ABG O2 Saturation (94-97) % Chloride (96-109) mmol/L Carbon Dioxide (21.6-31.8) mmol/L Creatinine (0.6-1.5) mg/dL BUN/Creatinine Ratio (12.00-20.00) Ratio Glucose (70-110) mg/dL POC Glucose (mg/dL) 212 H 202 H (75-99) mg/dL 07/15/21 07/15/21 07/15/21 Range/Units 05:31 06:51 12:02 RBC (4.10-5.20) X 10*6/uL Hgb (12.0-15.0) g/dL Hct (37.2-46.3) % MCV (80.0-97.0) fL MCH (27.0-32.0) pg MCHC (32.0-37.0) g/dL MPV (9.5-12.2) fL Immature Gran # (0.00-0.04) X 10*3/uL Lymphocytes # (0.90-5.00) X 10*3/uL Eosinophils # (0.04-0.35) X 10*3/uL ABG pCO2 (35-45) mmHg ABG HCO3 (21-25) mmol/L ABG O2 Saturation (94-97) % Chloride 88 L (96-109) mmol/L Carbon Dioxide 42.0 H* (21.6-31.8) mmol/L Creatinine 0.5 L (0.6-1.5) mg/dL BUN/Creatinine Ratio 27.40 H (12.00-20.00) Ratio Glucose 176 H (70-110) mg/dL POC Glucose (mg/dL) 172 H 155 H (75-99) mg/dL 07/15/21 Range/Units 15:28 RBC (4.10-5.20) X 10*6/uL Hgb (12.0-15.0) g/dL Hct (37.2-46.3) % MCV (80.0-97.0) fL MCH (27.0-32.0) pg MCHC (32.0-37.0) g/dL MPV (9.5-12.2) fL Immature Gran # (0.00-0.04) X 10*3/uL Lymphocytes # (0.90-5.00) X 10*3/uL Eosinophils # (0.04-0.35) X 10*3/uL ABG pCO2 75 H* (35-45) mmHg ABG HCO3 47 H* (21-25) mmol/L ABG O2 Saturation 97.3 H (94-97) % Chloride (96-109) mmol/L Carbon Dioxide (21.6-31.8) mmol/L Creatinine (0.6-1.5) mg/dL BUN/Creatinine Ratio (12.00-20.00) Ratio Glucose (70-110) mg/dL POC Glucose (mg/dL) (75-99) mg/dL
[2021-07-15 16:47] LABS: Glucose,Whole Blood 195 mg/dL (75-99)
[2021-07-15] MEDS: QUEtiapine 25 MG TAB PO SCH (17:38)
[2021-07-15 20:29] LABS: Glucose,Whole Blood 183 mg/dL (75-99)
[2021-07-15] MEDS: acetaZOLAMIDE 250 MG TAB PO SCH (20:43)
[2021-07-15] MEDS: THEOPHYLLINE 24 HOUR 300 MG CAP.ER.24H PO SCH (20:44)
[2021-07-15] MEDS: INSULIN DETEMIR (LEVEMIR) 100 UNIT/ML SYR SQ SCH (20:48)
[2021-07-16] MEDS: guaiFENesin-DM 100-10MG/5ML 10 ML CUP PO SCH ×3 (03:14→13:43)
[2021-07-16 07:08] LABS: Glucose,Whole Blood 121 mg/dL (75-99)
[2021-07-16] MEDS: INSULIN ASPART (NovoLOG) 100 UNIT/ML VIAL SQ SCH ×4 (07:18→13:43)
[2021-07-16] MEDS: guaiFENesin 600 MG TABLET.ER PO SCH (07:30)
[2021-07-16] MEDS: LORazepam 0.5 MG TAB PO SCH ×2 (07:31→13:53)
[2021-07-16] MEDS: PANTOPRAZOLE 40 MG TABLET PO SCH (07:31)
[2021-07-16] MEDS: SENNOSIDES-DOCUSATE SODIUM 1 EACH TAB PO SCH (07:31)
[2021-07-16] MEDS: VENLAFAXINE HCL ER 150 MG CAP PO SCH (07:31)
[2021-07-16] MEDS: busPIRone HCl 10 MG TAB PO SCH (07:31)
[2021-07-16] MEDS: FLUCONAZOLE 100 MG TAB PO SCH (07:31)
[2021-07-16] MEDS: QUEtiapine 25 MG TAB PO SCH (07:31)
[2021-07-16] MEDS: ENOXAPARIN 40 MG/0.4 ML SYRINGE SQ SCH (07:32)
[2021-07-16] MEDS: ARIPiprazole 2 MG TAB PO SCH (07:32)
[2021-07-16] MEDS: AMOXIC-POT CLAV 875-125MG 1 EACH TAB PO SCH (07:32)
[2021-07-16] MEDS: acetaZOLAMIDE 250 MG TAB PO SCH (07:32)
[2021-07-16] MEDS: DRY MOUTH SPRAY 44.3 SPRAY/44.3 ML SPRAY MUCOUS MEM SCH ×2 (07:33→13:43)
[2021-07-16] MEDS: ARTIFICIAL TEARS-HYPROMELLOSE DROPS 15 ML BTL BOTH EYES SCH (07:33)
[2021-07-16 07:52] VITALS: BP 116/76; RESP 18; TEMP 97.7
[2021-07-16] MEDS: BUDESONIDE 1 MG/2 ML NEBU INHALATION SCH (08:50)
[2021-07-16] MEDS: IPRATROPIUM-ALBUTEROL 3 ML NEB INHALATION SCH ×2 (08:50→12:20)
[2021-07-16] MEDS: FORMOTEROL FUMARATE 20 MCG/2 ML NEBU INHALATION SCH (08:50)
[2021-07-16] MEDS ORDERED: predniSONE 20 MG TAB PO SCH (09:00)
[2021-07-16 09:11] VITALS: PULSE 88
[2021-07-16 11:28] LABS: Glucose,Whole Blood 157 mg/dL (75-99)
--- NOTE | 2021-07-16 12:50 | P.PN ---
Subjective Progress Note Date: 07/16/21 Principal diagnosis: Acute exacerbation of COPD This is a 57-year-old white female patient with past medical history of severe COPD, stage IV metastatic breast cancer most recently patient was on Ibrance and Foslodex ( last treatment was on June 26, 2021) patient follows at the [facility] for her breast cancer care, with previous radiation therapy, hypertension, hyperlipidemia, depression, anxiety. Patient is status post bilateral mastectomy and oophorectomy at the [facility]. Patient presented to the emergency department on 06/30/2021 for evaluation of increased cough, and dyspnea and this has been going on since Tuesday. She went to see Dr. Azevedo in the office and was given a steroid injection, she has not improved, she denies any fever or chills, she has been vaccinated against coronavirus. Her cough is mostly nonproductive, no complaints of central chest pain, swelling or pain. Her chest x-ray shows COPD with right perihilar chronic atelectasis or scarring, based on comparison to previous images. COVID-19 PCR was negative, lab work was reviewed, white blood cell count was normal at 4.3, hemoglobin was 12.12, correlation profile was within normal limits, sodium is 134, potassium is 4.3, chloride is 93, CO2 32, BUN is 9, creatinine 0.49, LFTs were within normal limits. Patient was started on empiric antibiotics, IV steroids and bronchodilators, and we were asked to see the patient consultation. This morning she seen resting on a gurney in the emergency department, she is awaiting a bed on the medical surgical unit, vital signs are stable, she is in sinus mechanism with a rate of 107, pulse ox is 91% on 4 L, patient usually wears 2 L on a regular basis. On 07/02/2021 patient seen in follow-up on the medical surgical floor, patient thinks that her breathing is worse today, she is very tight bronchospastic very short of breath, she is on 4 L of oxygen pulse ox of 92-94%. Afebrile, hemodynamically she is stable, she is on IV Solu-Medrol 60 mg every 8 hours, she is on Pulmicort and Perforomist, is on antibiotics. She's had no fever or chills, she tested negative for COVID-19. Repeat chest x-ray was obtained showing persistent thickening within the periphery of the right lung, small right pleural effusion. Her pro-calcitonin was negative on admission is 0.09, blood cell count is normal at 4.3, hemoglobin was 12.2, was no evidence of fluid overload. He is bringing up some yellowish colored sputum, she is on azithromycin for antibiotic coverage. No swelling in lower extremities. She is receiving when necessary Ativan for anxiety. On today's evaluation on 07/03/2021 patient is seen in follow-up. Overnight her breathing continued to worsen, patient was quite bronchospastic last night, with labored breathing, and did become less responsive. Rapid response team was called, blood gas was obtained showing pO2 of 288, pCO2 of greater than 120, pH of 7.06. Patient was placed on BiPAP support with pressures of 12 and 5 and FiO2 of 100%, FiO2 has since been dropped down to 40%. This morning she remains on BiPAP support, she started to wake up, to provide some basic answers, although is she still very dyspneic to talk in sentences. Sounds are positive for diffuse wheezes. Yesterday's chest x-ray noted a persistent density within the periphery of the right midlung, with a consideration for atelectasis. Underlying mass could not be completely excluded. CTA chest was obtained last night going no evidence of pulmonary embolism, spinal or hilar adenopathy by CT criteria, lung windows were clear. Vision is maximized on medical treatment, she remains on IV Solu-Medrol 60 mg every 6 hours, azithromycin, Pulmicort, Perforomist, DuoNeb, yesterday we added aspirin 300 mg at bedtime. Her pro calcitonin level was negative this admission 0.09, COVID-19 PCR was negative, yesterday's blood work was fairly unremarkable, d-dimer was -0.56. On 07/05/2021 patient seen in follow-up on medical surgical floor. She remains on BiPAP support, she is of 12 and 6 and FiO2 of 50%, pulse ox is 89%, her follow up ABGs from yesterday was improving, with pH of 7.32, pCO2 of 94, and pO2 of 191, this was done 100% FiO2 which had since been dropped to 50%. Patient is currently maximized on medical treatment, she is on IV steroids with Solu-Medrol 60 g every 6 hours, she is on nebulized bronchodilators, She is on theophylline, she is on empiric antibiotics. Still very dyspneic, tight and wheezy. Not coughing any phlegm up. No chest pain. CT angiogram of chest showed no evidence of pulmonary embolism. Patient is very anxious as well, she's been getting as needed doses of Ativan. GI and DVT prophylaxis. overall much more awake, and responsive. On 07/06/2021 patient seen in follow-up on medical surgical floor, she currently remains on BiPAP with pressures of 12 and 6 on FiO2 of 50%. Any attempt to switch her to high flow nasal cannula was unsuccessful and the patient quickly desaturates down to low 80s and becomes very dyspneic. She has however moving better air on today's exam, still has diffuse wheezes, but there is better air entry noted bilaterally, breathing slightly better, patient is maximized on medical treatment including IV steroids, nebulized bronchodilators. She is on Pulmicort, PerforomistAlejandra, she remains on theophylline, Ativan has been increased to 1 mg 3 times a day for episodes of anxiety. Today's labs have been reviewed, no evidence of leukocytosis, white blood cell count is 7.16, hemoglobin is 12.5, CO2 is 38, chloride is 88, BUN is 16 and creatinine 0.[address] electrolytes are fairly unremarkable. No fever or chills. On 07/07/2021 patient seen in follow-up on medical surgical floor, she remains on BiPAP with pressures of 12 and 6 and FiO2 of 50%, she is awake and alert, she responds to verbal questions, seems to be breathing better, still has diffuse wheezes, but seems to be achieving good volumes up to 500 mL on the BiPAP sup port. On today's evaluation patient also had some scattered crackles at the bilateral bases. IV fluids have been discontinued, overall she is in -600 mL net fluid balance, she has not been able to take in much by mouth secondary to being BiPAP dependent, her daughter is at the bedside, she states her mother has not been able to eat any meals, however she has been drinking nutritional supplements. Patient continues on nebulized bronchodilators, she is on IV steroids with Solu-Medrol 60 mg every 6 hours, she is on theophylline, and she is receiving lorazepam 0.5 mg 4 times daily on a scheduled basis for anxiety. Echocardiogram showed preserved LV function with no significant valvular dysfu nction, there was no aortic stenosis or regurgitation, mild mitral regurgitation, mild tricuspid regurgitation, right-sided pressures were less than 35 mmHg. On 07/14/2021 patient seen in follow-up on medical surgical floor. She is breathing fairly comfortably, not requiring any BiPAP support, she is currently on 7 L of oxygen pulse ox 94%. Appears generally weak, but no acute distress. Afebrile, hemodynamically she stable. Her chest x-ray from yesterday showed developing left lower lobe infiltrate. Rocephin was added for empiric antibiotic coverage, patient remains on IV steroids with Solu-Medrol 60 mg every 8 hours, in addition to nebulized bronchodilators. No new labs today. Continue current medical treatment. Clinically no worsening since yesterday, patient remains off BiPAP support and tolerating it well. On 07/15/2021 patient had episode of agitation, patient was trying to get to the elevator unassisted, and she was trying to go home. She received a dose of Haldol, which significantly calm her down, patient return to her room into her bed with nursing assistance, she is back on 7 L of oxygen he she is breathing fairly comfortably, her pulse ox is 94%. Has not required BiPAP support in the last few days. Lung sounds are diminished, less bronchospastic, some bibasilar crackles. She remains on Solumedrol 60 mg every 8 hours, she remains on Zosyn for possibility of pneumonia, today's follow-up chest x-ray but persistent atelectasis or infiltrate in the right midlung zone and left lower lobe, no significant change. Patient has had no fever or chills, her pro calcitonin level came back low at 0.04 making possibility of bacterial infection less likely. No leukocytosis, white blood cell count is 7.91, hemoglobin is 10.6. Sodium was 139, potassium is 4.1, chloride was 88, CO2 was 42, BUN was 13, creatinine 0.5. No chest discomfort, no hemoptysis. On 07/08/2021 patient seen in follow-up on medical surgical floor, she is breathing much more comfortably, she is currently down to 4 L of oxygen, her pulse ox is 96%, she's had no acute events overnight, did not require BiPAP support. She was switched over to oral Augmentin yesterday, she remains on oral Diflucan, breathing treatments, and oral prednisone. Diamox was added per primary care service for evidence of metabolic alkalosis, secondary to chronic hypercapnic respiratory failure. Yesterday's blood gas was reviewed, showing compensated chronic hypercapnic respiratory failure. No chest discomfort, minimal wheezing, patient has been doing to the bathroom with assistance and a rolling walker, tolerating activity fairly well. She is being discharged home today. Objective - Vital Signs Vital signs: Vital Signs Temp 97.7 F 07/16/21 07:51 Pulse 88 07/16/21 09:11 Resp 18 07/16/21 07:51 BP 116/76 07/16/21 07:51 Pulse Ox 96 07/16/21 08:50 Intake & Output 07/15/21 07/16/21 07/16/21 18:59 06:59 18:59 Weight 67.132 kg Other: Voiding Method Bedside Commode # Voids 3 1 - Exam GENERAL EXAM: Awake and responsive, comfortable, appears fatigued and generally weak, but not distressed 60-year-old white female, 4 L of oxygen pulse ox of 96% HEAD: Normocephalic/atraumatic. EYES: Normal reaction of pupils, equal size. Conjunctiva pink, sclera white. NOSE: Clear with pink turbinates. THROAT: No erythema or exudates. NECK: No masses, no JVD, no thyroid enlargement, no adenopathy. CHEST: No chest wall deformity. Symmetrical expansion. LUNGS: diminished breath sounds bilaterally, no wheezing, no crackles CVS: Regular rate and rhythm, normal S1 and S2, no gallops, no murmurs, no rubs ABDOMEN: Soft, nontender. No hepatosplenomegaly, normal bowel sounds, no guarding or rigidity. EXTREMITIES: No clubbing, no edema, no cyanosis, 2+ pulses and upper and lower extremities. MUSCULOSKELETAL: Muscle strength and tone normal. SPINE: No scoliosis or deformity SKIN: No rashes CENTRAL NERVOUS SYSTEM: Alert and oriented -3. No focal deficits, tone is normal in all 4 extremities. PSYCHIATRIC: Alert and oriented -3. Appropriate affect. Intact judgment and insight. - Labs CBC & Chem 7: 07/15/21 05:31 07/15/21 05:31 Labs: Abnormal Lab Results - Last 24 Hours (Table) 07/15/21 07/15/21 07/15/21 Range/Units 15:28 16:36 20:28 ABG pCO2 75 H* (35-45) mmHg ABG HCO3 47 H* (21-25) mmol/L ABG O2 Saturation 97.3 H (94-97) % POC Glucose (mg/dL) 195 H 183 H (75-99) mg/dL 07/16/21 07/16/21 Range/Units 06:56 11:26 ABG pCO2 (35-45) mmHg ABG HCO3 (21-25) mmol/L ABG O2 Saturation (94-97) % POC Glucose (mg/dL) 121 H 157 H (75-99) mg/dL Assessment and Plan Plan: assessment: #1. Acute exacerbation of chronic obstructive pulmonary disease, no evidence of acute pulmonary process on the chest x-ray, COVID 19 PCR was negative, patient is status post completed COVID-19 vaccination. #2. Stage IV metastatic breast cancer, status post bilateral mastectomy and o ophorectomy, patient follows at the [facility] for her cancer care, she is currently on Ibrance and Foslodex, last treatment was 06/26/2021 #3. Acute developing left lower lobe pneumonia, currently on Zosyn, pro- calcitonin level is low at 0.04 #4. History of COPD, on home oxygen, usually wears 2 L on a regular basis, baseline FEV1 is 37% of predicted #5. History of chronic tobacco dependence #6. Hypertension #7. Depression #8. History of Alysha syndrome #9. Acute on chronic hypoxic and hypercapnic respiratory failure related to acute exacerbation of COPD, chest x-ray showed right midlung density, with possibility of atelectasis, CTA chest showed no evidence of pulmonary embolism, lung windows were clear, no mediastinal or hilar adenopathy. She was placed on BiPAP support on which she remains with pressures of 12 and 5 and FiO2 of 50% #10. Anxiety, and agitation, possibly related to medications, acute on chronic hypoxia, and patient was given a dose of Haldol Plan: Clinically patient continues to improve FiO2 is down to 4 L Breathing comfortably Vital signs have been stable Patient has been transitioned to oral antibiotics and oral prednisone She is stable for discharge home from pulmonary perspective, on oral Augmentin, prednisone taper, theophylline 300 mg, and she can resume Breo-Ellipta, and DuoNeb nebulized treatments Outpatient follow-up with Dr. Cross in the office in 7-10 days I performed a history & physical examination of the patient and discussed their management with my nurse practitioner, Mere Ruth. I reviewed the nurse darcy ramirez's note and agree with the documented findings and plan of care. Lung sounds are positive for diffuse wheezes throughout the lung [place]. The findings and the impression was discussed with the patient. I attest to the documentation by the nurse practitioner. #4. Time with Patient: Less than 30
--- NOTE | 2021-07-17 08:03 | P.DS ---
Providers Date of admission: 06/30/21 14:22 Expected date of discharge: 07/16/21 Attending physician: Philip Azevedo Consults: 06/30/21 14:22 Consult Physician Routine Consulting Provider: Brit Cross Consult Reason/Comments: COPD Do you want consulting provider notified?: Yes Primary care physician: Sanjay [facility] Hospital Course: HISTORY OF PRESENT ILLNESS 60-year-old female one of Dr. 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 Also patient had abdominal uterine and fallopian metastasis from breast cancer with total hysterectomy. Patient had respiratory failure on and off in the past has been on home O2 she was hospitalized at [facility] over a month ago for COPD excessive patient was treated and done well. Patient developed to have much worsening shortness of breath cough wheezes try outpatient management not successful ended up seen Dr. Alberts and had apparently steroid injection along with antibiotics which did not help ended up in the emergency department at [facility] in the afternoon on 06/30/2021. At the time was seen she was quite hypoxic was having inspiratory expiratory wheezes and significant worsening symptoms. Her COVID-19 by PCR was negative chest x-ray showed COPD with right perihilar and chronic atelectasis with scar tissue. She was diagnosed with COPD excessive patient with severe bronchitis started on IV antibiotic along with IV steroids and bronchodilator pulse ox remained to be low require 4 L of O2 to keep pulse ox above 90 percentile. She was hospitalized with above problem. 07/01: Patient is seen today in the emergency center waiting for a [facility] bed. She has been started on IV Solu-Medrol and NovoLog scale will be added. IV fluids will be discontinued. She has been seen by Dr. Saldivar and Pulmicort and Perforomist added. Patient states that she is feeling much better breathing status is improved from yesterday most likely secondary to steroids. She has been afebrile, heart rate 103, blood pressure 124/90, pulse ox 94% on 3 L nasal cannula. Patient voices that she wishes to BE a no code. 07/02: Complaints of worsening shortness of breath this morning. She did have a good evening and did not take evening nebulizer treatment. She has increased shortness of breath the pulse ox is 92% on 4 L nasal cannula but patient states that her breathing is not good this morning. D-dimer ordered as well as chest x-ray and Ativan were ordered by home medicine. Patient verbalizes that she does not want to go on BiPAP. She remains on Solu-Medrol 60 mg IV every 6 hours 07/03: A-Team was called this morning at midnight this patient was found unresponsive with agonal breathing. Patient was placed on BiPAP and woke up shortly after. Pulmonary medicine has added and theophylline, continue Solu- Medrol 60 mg IV every 6 hours, nebulizers, Pulmicort, Perforomist. Chest x-ray from yesterday afternoon revealed persistent thickening within the periphery of the right mid lung currently measuring 1 cm in thickness which is increased from 2019. CT chest is recommended. Neoplasm is not excluded. CT angiogram of the chest revealed no acute pulmonary embolism. Patient has been afebrile, heart rate 100, blood pressure 145/88, respiratory rate 30, pulse ox 88% on BiPAP. Repeat Covid 19 testing ordered. 07/04: Patient currently is on BiPAP chain, for hypercapnic failure, hasn't had any regular meals, she is requesting to restart back her Ativan as she is panicking with the BiPAP in her face. She has no lightheadedness dizziness, has poor sleep, diminished appetite, she is known to have stage IV metastatic breast cancer, with last treatment in June 2021, using a ibrance and folslodex 07/05: Patient is on BiPAP, complaining of dry eye, still not sleeping at night, has daughter at bedside, updated regarding treatment plan, echocardiogram is requested to eval for pulmonary hypertension, vitals are stable, melatonin added on top of when necessary Ativan 07/06: Patient remains on BiPAP which she has been on 24 hours per day with FiO2 50%. She remains on IV steroids and nebulizer treatments, Pulmicort, and theophylline. The patient is requesting that Ativan be increased to 1 mg which we will do 07/07: Patient continues to have respiratory difficulty, and remains on bipap ATC. Pulse ox 93% on FiO2 50%. Patient is more sedated today and Ativan will be decreased to 0.5 mg but increased frequency to qid. Patient has been afebrile, HR 114, BP 132/92. CBG 154-238. 07/08: Patient complains that she did not sleep last night and still having difficulty with anxiety. Buspar 10 mg bid added. Also added Diflucan for thrush and added cardiac monitoring due to interaction with medication that could increase QT prolongation.patient remains on BiPAP around the clock. Pulse ox is 89% on 50% FiO2. She's been afebrile, heart rate 107, blood pressure 150/82. Blood sugar jumped up to 416 and 386 for which scheduled NovoLog will be added. 07/09: Patient is now on high flow nasal cannula at 10 L with pulse ox of 93%. She's been afebrile, heart rate in the low 100s, blood pressure 117/72. Blood sugars showed improvement with changes made to insulins with blood sugars running between 166 and 267. She does not have history of diabetes but will most likely require medication at discharge due to steroids. She appears to be more comfortable today. She states she has a little cough. Incentive spirometry will be added. 07/10: Patient's breathing status continues to improve. She is now on oxygen at 8 L nasal cannula maintaining good pulse ox. She remains afebrile, heart rate in the low 100s, blood pressure 111/70. She states she slept better last night. Blood sugar last evening was 64 and she did not receive Levemir last night. She is on scheduled NovoLog and NovoLog scale. 07/11: Patient evaluated this morning. Patient is now on 6 L of O2 and is currently satting at 87-90%. She is afebrile with a temperature of 98.4, heart rate 104, respiratory of 16, blood pressure 139/82. She continues on bronchodilators as well as steroids with IV Solu-Medrol 60 mg every 6 hours. Glucose elevated secondary to steroids she'll continue on NovoLog 7 units 3 times a day along with sliding scale and Levemir 23 units at at bedtime. 07/12: Patient evaluated this morning, patient is now on high flow nasal cannula at 9 L, O2 saturation is 97%. Temperature 97.4, heart rate 97, respiratory 20, blood pressure 126/85. Glucose still has spotting running high with occasional lows, yesterday loss was 70, highest was 373. Steroids were decreased to 40 mg every 8 hours. Insulin was adjusted NovoLog from 7 units to 4 units and Detemir 23 units at at bedtime. Patient has complaints of nausea Zofran was also added. Patient is very weak will have PT evaluate for the possibility of rehab 07/13: PO 99% on 7L at rest. Lung sounds are improving. Pulmonary has increased solu-medrol from 40 mg IV every 8 hours to 60 mg every 8 hours and Zosyn. She states that she was up in chair today for several hours and is now exhausted. Expect PT to work with patient this week. Her dc plan is for subacute rehab and social work is following. Possible discharge iat the earliest n 48 hours. 07/14 patient examined best continues to remain off 7 L high flow. Chest x-ray obtained yesterday suggestive of left lower lobe infiltrate highly suspicious for pneumonia. Patient continues to remain on Zosyn. Patient is a high risk for bronchoscopy for pulmonary. Patient recommended incentive spirometry 10 times an hour. Labs from yesterday suggestive of CBC with hemoglobin 12.3 patient has significant CO2 retention at 43.9 creatinine 0.5 glucose 234 ordered. Continue DuoNeb as needed for shortness of breath. Solu-Medrol increased to 80 3 times a day. Continue Pulmicort twice daily 07/15 patient examined at bedside. Patient episode of agitation this morning requiring 4 mg of IM Haldol. Patient was paranoid and pulling off her IV lines and the oxygen. Soft restraints were applied. Patient takes 1 mg 3 times a day of Ativan at home currently receiving Ativan 0.5 mg every 6 hours and BuSpar. Agitation improved on my assessment. Patient was called and answering questions appropriately . Vitals were reviewed, afebrile , pulse 95, RR17 , BP 144/ 92 oxygen sat 94 L on 7 L high flow . ABG was ordered, ph 7.41, pco2 75,, o2 93, HCO3 47. Chest x-ray suggestive persistent atelectasis or infiltrate in the right mid lung zone and left lower lobe. Daimox initiated at 250 mg po BID. Solu-Medrol switched to prednisone 40 mg by mouth daily. Patient initially on Seroquel 12.5 twice a day. 07/16: Patient is now pulse oxing 96% on 4 L nasal cannula, she's been afebrile, pulse rate 86, blood pressure 116/76. Patient has had no issues overnight according to her nurse. Patient states that she her breathing is much improved and she is very anxious to be discharged home. She has been started on Augmentin by Sanjay sanders which will continue at discharge. She is also on oral prednisone and will be on a taper. Patient will be discharged home today in stable condition. ASSESSMENT AND PLAN 1. Acute on chronic hypoxic hypercapnic respiratory failure: Combination of COPD exacerbation 2. COPD exacerbation 3. Hospital-acquired pneumonia with Severe purulent tracheal bronchitis 4. acute metabolic encephalopathy likely secondary to hypercarbia. 5. Advance breast cancer with lung metastasis 6. hypertension 7. Recurrent depression 8. Hyperglycemia secondary 2 steroids. 9. GI prophylaxis 10. DVT prophylaxis 11. Dry mouth. 12. General anxiety disorder. 13. Oral thrush. 14. Nausea. 15. Debility. 16. COVID-19 testing negative. DISCHARGE PLAN Home with [facility] Impression and plan of care have been directed as dictated by the signing physician. Arleen Gamez nurse practitioner acting as scribe for signing physician. Patient Condition at Discharge: Stable Plan - Discharge Summary Discharge Rx Participant: No New Discharge Prescriptions: New Amoxic-Pot Clav 875-125Mg [Augmentin 875-125] 1 each PO Q12HR #14 tab busPIRone HCl [Buspar] 10 mg PO BID #60 tab acetaZOLAMIDE [Diamox] 250 mg PO BID #14 tab predniSONE 0 mg PO DIRECTED #30 tab Sennosides-Docusate Sodium [Senokot-S] 2 each PO DAILY tab Theophylline 24 Hour [True-24] 300 mg PO HS #30 capsule guaiFENesin [Mucinex] 1,200 mg PO Q12HR tablet Continue Venlafaxine HCl [Effexor XR] 150 mg PO DAILY Omeprazole 20 mg PO DAILY amLODIPine [Norvasc] 10 mg PO DAILY HYDROcodone/APAP 10-325MG [[place] 10-325] 1 tab PO Q6HR PRN PRN Reason: Pain ARIPiprazole [Abilify] 2 mg PO HS Ipratropium-Albuterol Nebulize [Duoneb 0.5 mg-3 mg/3 ml Soln] 3 ml INHALATION RT-Q4H PRN PRN Reason: Shortness Of Breath Palbociclib [Ibrance] 75 mg PO DIRECTED LORazepam [Ativan] 1 mg PO TID PRN PRN Reason: Anxiety Fluticasone/Vilanterol [Breo Ellipta 200-25 Mcg Inhaler] 1 puff INHALATION RT-DAILY Discharge Medication List Omeprazole 20 mg PO DAILY 09/05/15 [History] Venlafaxine HCl [Effexor XR] 150 mg PO DAILY 09/05/15 [History] amLODIPine [Norvasc] 10 mg PO DAILY 08/27/18 [History] ARIPiprazole [Abilify] 2 mg PO HS 06/30/21 [History] Fluticasone/Vilanterol [Breo Ellipta 200-25 Mcg Inhaler] 1 puff INHALATION RT- DAILY 06/30/21 [History] HYDROcodone/APAP 10-325MG [[place] 10-325] 1 tab PO Q6HR PRN 06/30/21 [History] Ipratropium-Albuterol Nebulize [Duoneb 0.5 mg-3 mg/3 ml Soln] 3 ml INHALATION RT-Q4H PRN 06/30/21 [History] LORazepam [Ativan] 1 mg PO TID PRN 06/30/21 [History] Palbociclib [Ibrance] 75 mg PO DIRECTED 06/30/21 [History] Amoxic-Pot Clav 875-125Mg [Augmentin 875-125] 1 each PO Q12HR #14 tab 07/16/21 [Rx] Sennosides-Docusate Sodium [Senokot-S] 2 each PO DAILY tab 07/16/21 [Rx] Theophylline 24 Hour [True-24] 300 mg PO HS #30 capsule 07/16/21 [Rx] acetaZOLAMIDE [Diamox] 250 mg PO BID #14 tab 07/16/21 [Rx] busPIRone HCl [Buspar] 10 mg PO BID #60 tab 07/16/21 [Rx] guaiFENesin [Mucinex] 1,200 mg PO Q12HR tablet 07/16/21 [Rx] predniSONE 0 mg PO DIRECTED #30 tab 07/16/21 [Rx] Follow up Appointment(s)/Referral(s): [facility] [NON-STAFF] - ([facility] will call you to schedule your home care visits.) Sanjay Alberts DO [Primary Care Provider] - 1-2 days (office will call with appointment time) Brit Cross MD [STAFF PHYSICIAN] - 07/28/21 2:45 pm (With Raegan) Patient Instructions/Handouts: COPD (Chronic Obstructive Pulmonary Disease) (DC) Activity/Diet/Wound Care/Special Instructions: PT WOULD LIKE INFLUENZA AND PNEUMONIA VACCINES PRIOR TO DISCHARGE Discharge Disposition: HOME WITH HOME HEALTH SERVICES
--- NOTE | 2021-07-17 11:24 | CDI ---
Documentation Clarification Form Date: 07/17/2021 11:16:16 AM From: Jamie Colunga Admit Date: 06/30/2021 02:22:00 PM Patient Name: Nova Dalton Visit Number: [id number] Discharge Date: 07/16/2021 01:46:00 PM ATTENTION: The Clinical Documentation Specialists (CDI) and [facility] Coding Staff appreciate your assistance in clarifying documentation. Please respond to the clarification below the line at the bottom and electronically sign. The CDI & [facility] Coding staff will review the response and follow-up if needed. Please note: Queries are made part of the Legal Health Record. If you have any questions, please contact the author of this message via ITS. Dr. Philip Azevedo Pneumonia is documented in the discharge summary and later in the chart after admission. Admission chest X-ray shows R hilar infilatrate. Need to determine if pneumonia was POA to determine principle diagnosis. History/Risk Factors: COPD exacerbation, acute respiratory failure, acute bronchitis on admission, metastatic cancer to lung Clinical Indicators: chest [id number] on admission Treatment: IV abx Definition of Present on Admission (POA): A diagnosis present at the time the order for admission to inpatient status was written. Please clarify if pneumonia was POA. [ ] Y = Yes, the condition was present at the time of the order for inpatient admission. [ ] N = No, the condition was not present at the time of the order for inpatient admission. [ xx] W = Clinically undetermined if the condition was present at the time of the order for inpatient Admission. MTDD
--- NOTE | 2021-08-20 09:43 | CDI ---
Documentation Clarification Form Date: 08/20/2021 09:34:20 AM From: Jamie Colunga Admit Date: 06/30/2021 02:22:00 PM Patient Name: Nova Dalton Visit Number: [id number] Discharge Date: 07/16/2021 01:46:00 PM ATTENTION: The Clinical Documentation Specialists (CDI) and [facility] Coding Staff appreciate your assistance in clarifying documentation. Please respond to the clarification below the line at the bottom and electronically sign. The CDI & [facility] Coding staff will review the response and follow-up if needed. Please note: Queries are made part of the Legal Health Record. If you have any questions, please contact the author of this message via ITS. Dr. Heide Hair Pneumonia is documented in your discharge summary. For each diagnosis, documentation must be clear to determine if the condition was present at the time of the patients inpatient admission or developed during the hospital stay. Additional clarification regarding the pneumonia is requested. This will determine the principle diagnosis. History/Risk Factors: acute resp failure, acute bronchitis on admission, metastatic cancer to lung Clinical Indicators: CXR on admission: R hilar infiltrate Treatment: IV abx Definition of Present on Admission (POA): A diagnosis present at the time the order for admission to inpatient status was written. Please clarify if the pneumonia was POA [ X ] Y = Yes, the condition was present at the time of the order for inpatient admission. [ ] N = No, the condition was not present at the time of the order for inpatient admission. [ ] W = Clinically undetermined if the condition was present at the time of the order for inpatient admission. MTDD
== END 2021-07-16 13:46 | disposition home health service (06) | DRG 193 ==
LOC: EC 12:03 → OBSVTOIN 14:22 → 6NMEDSUR 14:22 → 1SOBS 14:56 → 4SSUR 17:17
PROVIDERS: ADMIT Internal Medicine Geriatric Medicine; ATTEND Internal Medicine Geriatric Medicine
PROC: 5A09557 Assistance with Respiratory Ventilation, Greater than 96 Consecutive Hours, Continuous Positive Airway Pressure (ICD-10-PCS; principal; 2021-07-03)
PROC: 5A0945A Assistance with Respiratory Ventilation, 24-96 Consecutive Hours, High Flow/Velocity Cannula (ICD-10-PCS; 2021-07-08)
DX: J18.9 Pneumonia, unspecified organism (principal); G93.41 Metabolic encephalopathy; J96.21 Acute and chronic respiratory failure with hypoxia; J96.22 Acute and chronic respiratory failure with hypercapnia; J44.1 Chronic obstructive pulmonary disease with (acute) exacerbation; B37.0 Candidal stomatitis; B37.89 Other sites of candidiasis; C78.00 Secondary malignant neoplasm of unspecified lung; E87.4 Mixed disorder of acid-base balance; F33.9 Major depressive disorder, recurrent, unspecified; I47.2 Ventricular tachycardia; J44.0 Chronic obstructive pulmonary disease with (acute) lower respiratory infection; Z20.822 Contact with and (suspected) exposure to COVID-19; E78.5 Hyperlipidemia, unspecified; F41.1 Generalized anxiety disorder; I10 Essential (primary) hypertension; T38.0X5A Adverse effect of glucocorticoids and synthetic analogues, initial encounter; Y95 Nosocomial condition; R73.9 Hyperglycemia, unspecified; C50.919 Malignant neoplasm of unspecified site of unspecified female breast; G90.2 Horner's syndrome; Z72.0 Tobacco use; Z78.1 Physical restraint status; Z79.01 Long term (current) use of anticoagulants; Z79.51 Long term (current) use of inhaled steroids; Z79.899 Other long term (current) drug therapy; Z80.1 Family history of malignant neoplasm of trachea, bronchus and lung; Z90.13 Acquired absence of bilateral breasts and nipples; Z90.710 Acquired absence of both cervix and uterus; Z92.3 Personal history of irradiation; Z99.81 Dependence on supplemental oxygen; Z92.21 Personal history of antineoplastic chemotherapy
CPT/HCPCS: 36415; 36600; 71045; 71046; 71275; 80048; 80053; 80198; 82805; 83605; 83735; 83880; 84145; 84484; 85025; 85027; 85379; 85610; 85730; 87635; 93005; 93306; 94640; 94660; 94667; 94760; 96374; 99291

== ENCOUNTER 2021-07-17 10:51 | Inpatient (IN) | payer MEDICARE ==
[2021-07-17] MEDS ORDERED: SODIUM CHLORIDE 0.9% 500 ML 500 ML IV ONE ×2 (11:05→14:38)
[2021-07-17] MEDS ORDERED: IPRATROPIUM-ALBUTEROL 3 ML NEB INHALATION STA (11:06)
--- NOTE | 2021-07-17 11:11 | ED ---
General Adult HPI - General Chief complaint: Altered Mental Status Stated complaint: altered Time Seen by Provider: 07/17/21 11:00 Source: patient, EMS, RN notes reviewed, old records reviewed Mode of arrival: EMS Limitations: no limitations - History of Present Illness Initial comments: This is a 60-year-old female who presents emergency Department without complaint. Patient is alert and oriented 3. Patient was brought in because daughter called EMS because she had to her oxygen to. Patient states she doesn't know why she didn't just taken off but she thought it wasn't working so she did through the tube and stopped the oxygen from falling. Patient states she has a history of COPD and was just released from the hospital in the last day or 2. Patient denies any fever patient denies chest pain difficulty breathing shortness of breath. Patient states she's always a little short of breath but she is on oxygen at home. Patient denies any abdominal pain patient denies nausea vomiting diarrhea. Patient denies any recent injury or trauma. Patient denies lightheadedness or dizziness. Patient does not want to be here. - Related Data Home Medications Medication Instructions Recorded Confirmed Omeprazole 20 mg PO DAILY 09/05/15 07/17/21 Venlafaxine HCl [Effexor XR] 150 mg PO DAILY 09/05/15 07/17/21 amLODIPine [Norvasc] 10 mg PO DAILY 08/27/18 07/17/21 ARIPiprazole [Abilify] 2 mg PO HS 06/30/21 07/17/21 Fluticasone/Vilanterol [Breo 1 puff INHALATION RT-DAILY 06/30/21 07/17/21 Ellipta 200-25 Mcg Inhaler] HYDROcodone/APAP 10-325MG [[place] 1 tab PO Q6HR PRN 06/30/21 07/17/21 10-325] Ipratropium-Albuterol Nebulize 3 ml INHALATION RT-Q4H PRN 06/30/21 07/17/21 [Duoneb 0.5 mg-3 mg/3 ml Soln] LORazepam [Ativan] 1 mg PO TID PRN 06/30/21 07/17/21 Palbociclib [Ibrance] 75 mg PO DIRECTED 06/30/21 07/17/21 Amoxic-Pot Clav 875-125Mg 1 tab PO Q12HR 07/17/21 07/17/21 [Augmentin 875-125] Sennosides-Docusate Sodium 2 tab PO DAILY 07/17/21 07/17/21 [Senokot-S] predniSONE See Taper PO DAILY 07/17/21 07/17/21 Previous Rx's Medication Instructions Recorded Theophylline 24 Hour [True-24] 300 mg PO HS #30 capsule 07/16/21 acetaZOLAMIDE [Diamox] 250 mg PO BID #14 tab 07/16/21 busPIRone HCl [Buspar] 10 mg PO BID #60 tab 07/16/21 guaiFENesin [Mucinex] 1,200 mg PO Q12HR tablet 07/16/21 Allergies Allergy/AdvReac Type Severity Reaction Status Date / Time levofloxacin Allergy Rash/Hives Verified 07/17/21 12:27 ondansetron HCl AdvReac Severe Increased Verified 07/17/21 12:27 [From Zofran (as QT interval hydrochloride)] prochlorperazine edisylate AdvReac Severe Increased Verified 07/17/21 12:27 [From Compazine] QT interval prochlorperazine maleate AdvReac Severe Increased Verified 07/17/21 12:27 [From Compazine] QT Interval Review of Systems ROS Statement: Those systems with pertinent positive or pertinent negative responses have been documented in the HPI. ROS Other: All systems not noted in ROS Statement are negative. 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 History of Any Multi-Drug Resistant Organisms: None Reported Past Surgical History: Hysterectomy, Orthopedic Surgery Additional Past Surgical History / Comment(s): Cervical cone bx at age 22 yrs, bilateral mastectomies/multiple implants d/t ruptures, D&C, total hysterectomy, VAT/bx, infusaport-since removed, L ACL repair and multiple L knee arthroscopic surgeries, bilateral thumbs trigger finger surgeries, EGDS/colonoscopies with benign polypectomy, L7 kyphoplasty/rods/screws. Past Anesthesia/Blood Transfusion Reactions: Postoperative Nausea & Vomiting (PONV) Past Psychological History: Anxiety, Depression Smoking Status: Former smoker Past Alcohol Use History: None Reported Past Drug Use History: Marijuana - Past Family History Father Family Medical History: Cancer Additional Family Medical History / Comment(s): Patient reports her father of lung cancer at age 59. Brother(s) Additional Family Medical History / Comment(s): Patient has to penicillin major medical problems. Patient has 2 sisters with no major medical problems. Patient has one daughter with no major medical problems. Mother Family Medical History: No Reported History Additional Family Medical History / Comment(s): Mother is healthy and 84 yrs old. General Exam - General Exam Comments Initial Comments: GENERAL: Patient is well-developed and well-nourished. Patient is nontoxic and well- hydrated and is in mild distress. ENT: Neck is soft and supple. No significant lymphadenopathy is noted. Oropharynx is clear. Moist mucous membranes. Neck has full range of motion without eliciting any pain. EYES: The sclera were anicteric and conjunctiva were pink and moist. Extraocular movements were intact and pupils were equal round and reactive to light. E yelids were unremarkable. PULMONARY: Patient has diminished breath sounds diffusely. CARDIOVASCULAR: There is a regular rate and rhythm without any murmurs gallops or rubs. ABDOMEN: Soft and nontender with normal bowel sounds. SKIN: Skin is clear with no lesions or rashes and otherwise unremarkable. NEUROLOGIC: Patient is alert and oriented x3. Cranial nerves II through XII are grossly in tact. Motor and sensory are also intact. Normal speech, volume and content. Symmetrical smile. MUSCULOSKELETAL: Normal extremities with adequate strength and full range of motion. LYMPHATICS: No significant lymphadenopathy is noted PSYCHIATRIC: Normal psychiatric evaluation. Limitations: no limitations Course Vital Signs 07/17/21 07/17/21 07/17/21 10:56 11:05 12:49 Temperature 97.1 F L Pulse Rate 98 92 Respiratory 20 20 18 Rate Blood Pressure 108/97 O2 Sat by Pulse 93 L Oximetry 07/17/21 12:57 Temperature Pulse Rate 90 Respiratory 18 Rate Blood Pressure O2 Sat by Pulse Oximetry Medical Decision Making - Medical Decision Making EKG shows normal sinus rhythm at 92 bpm GA interval 216 QRS is 80 QT interval 372 QTC is 460. Patient's EKG shows no ST segment elevation or depression. CT of the brain shows no acute normalities. I spoke with Dr. Hair she agreed to admit the patient admitted the patient wrote admitting orders. - Lab Data Result diagrams: 07/17/21 12:05 07/17/21 12:05 Lab Results 07/17/21 07/17/21 07/17/21 Range/Units 12:00 12:04 12:05 WBC 7.0 (3.8-10.6) k/uL RBC 4.15 (3.80-5.40) m/uL Hgb 13.9 (11.4-16.0) gm/dL Hct 41.5 (34.0-46.0) % MCV 100.0 (80.0-100.0) fL MCH 33.6 (25.0-35.0) pg MCHC 33.6 (31.0-37.0) g/dL RDW 14.8 (11.5-15.5) % Plt Count 213 (150-450) k/uL MPV 7.8 Neutrophils % 89 % Lymphocytes % 8 % Monocytes % 1 % Eosinophils % 1 % Basophils % 0 % Neutrophils # 6.2 (1.3-7.7) k/uL Lymphocytes # 0.6 L (1.0-4.8) k/uL Monocytes # 0.1 (0-1.0) k/uL Eosinophils # 0.1 (0-0.7) k/uL Basophils # 0.0 (0-0.2) k/uL Macrocytosis Slight VBG pH 7.48 H (7.31-7.41) VBG pCO2 45 (37-51) mmHg VBG HCO3 33 H (24-28) mmol/L Sodium (137-145) mmol/L Potassium (3.5-5.1) mmol/L Chloride (98-107) mmol/L Carbon Dioxide (22-30) mmol/L Anion Gap mmol/L BUN (7-17) mg/dL Creatinine (0.52-1.04) mg/dL Est GFR (CKD-EPI)AfAm (>60 ml/min/1.73 sqM) Est GFR (CKD-EPI)NonAf (>60 ml/min/1.73 sqM) Glucose (74-99) mg/dL POC Glucose (mg/dL) 208 H (75-99) mg/dL POC Glu First Aid Director ID [facility] Calcium (8.4-10.2) mg/dL Total Bilirubin (0.2-1.3) mg/dL AST (14-36) U/L ALT (4-34) U/L Alkaline Phosphatase (38-126) U/L Troponin I (0.000-0.034) ng/mL Total Protein (6.3-8.2) g/dL Albumin (3.5-5.0) g/dL 07/17/21 07/17/21 Range/Units 12:05 12:05 WBC (3.8-10.6) k/uL RBC (3.80-5.40) m/uL Hgb (11.4-16.0) gm/dL Hct (34.0-46.0) % MCV (80.0-100.0) fL MCH (25.0-35.0) pg MCHC (31.0-37.0) g/dL RDW (11.5-15.5) % Plt Count (150-450) k/uL MPV Neutrophils % % Lymphocytes % % Monocytes % % Eosinophils % % Basophils % % Neutrophils # (1.3-7.7) k/uL Lymphocytes # (1.0-4.8) k/uL Monocytes # (0-1.0) k/uL Eosinophils # (0-0.7) k/uL Basophils # (0-0.2) k/uL Macrocytosis VBG pH (7.31-7.41) VBG pCO2 (37-51) mmHg VBG HCO3 (24-28) mmol/L Sodium 132 L (137-145) mmol/L Potassium 4.8 (3.5-5.1) mmol/L Chloride 95 L (98-107) mmol/L Carbon Dioxide 32 H (22-30) mmol/L Anion Gap 5 mmol/L BUN 20 H (7-17) mg/dL Creatinine 0.49 L (0.52-1.04) mg/dL Est GFR (CKD-EPI)AfAm >90 (>60 ml/min/1.73 sqM) Est GFR (CKD-EPI)NonAf >90 (>60 ml/min/1.73 sqM) Glucose 209 H (74-99) mg/dL POC Glucose (mg/dL) (75-99) mg/dL POC Glu First Aid Director ID Calcium 9.3 (8.4-10.2) mg/dL Total Bilirubin 1.1 (0.2-1.3) mg/dL AST 39 H (14-36) U/L ALT 35 H (4-34) U/L Alkaline Phosphatase 67 (38-126) U/L Troponin I <0.012 (0.000-0.034) ng/mL Total Protein 6.9 (6.3-8.2) g/dL Albumin 4.0 (3.5-5.0) g/dL Disposition Clinical Impression: Altered mental status Disposition: ADMITTED IP TO THIS HOSP Referrals: Sanjay Alberts DO [Primary Care Provider] - 1-2 days Time of Disposition: 15:05
[2021-07-17 12:15] LABS: Glucose,Whole Blood 208 mg/dL (75-99)
[2021-07-17 12:17] LABS: Basophils % (A) 0 %; Eosinophils # (A) 0.1 k/uL (0-0.7); Eosinophils % (A) 1 %; HCT 41.5 % (34.0-46.0); HGB 13.9 gm/dL (11.4-16.0); Lymphocytes # (A) 0.6 k/uL (1.0-4.8); Lymphocytes % (A) 8 %; MCH 33.6 pg (25.0-35.0); MCHC 33.6 g/dL (31.0-37.0); Macrocytosis Slight; Mean Platelet Volume 7.8; Monocytes # (A) 0.1 k/uL (0-1.0); Monocytes % (A) 1 %; Neutrophils # (A) 6.2 k/uL (1.3-7.7); Neutrophils % (A) 89 %; Platelet Count 213 k/uL (150-450); RBC 4.15 m/uL (3.80-5.40); RDW 14.8 % (11.5-15.5)
[2021-07-17 12:29] LABS: ALT 35 U/L (4-34); AST 39 U/L (14-36); African American GFR (CKD) >90 (>60 ml/min/1.73 sqM); Alkaline Phosphatase 67 U/L (38-126); Anion Gap 5 mmol/L; Blood Urea Nitrogen 20 mg/dL (7-17); Calcium 9.3 mg/dL (8.4-10.2); Carbon Dioxide 32 mmol/L (22-30); Chloride 95 mmol/L (98-107); Glucose 209 mg/dL (74-99); Non-African American GFR(CKD) >90 (>60 ml/min/1.73 sqM); Potassium 4.8 mmol/L (3.5-5.1); Sodium 132 mmol/L (137-145); Total Bilirubin 1.1 mg/dL (0.2-1.3); Total Protein 6.9 g/dL (6.3-8.2)
[2021-07-17 12:32] LABS: VBG PH 7.48 (7.31-7.41)
--- NOTE | 2021-07-17 12:47 | XR ---
EXAMINATION TYPE: XR chest 2V DATE OF EXAM: 07/17/2021 COMPARISON: 07/15/2021 HISTORY: 60-year-old female confusion, altered mental status TECHNIQUE: Frontal and lateral views FINDINGS: Heart normal size. Aorta and pulmonary vasculature are within normal limits. The mild patchy density at the periphery of the right midlung and at the periphery of the right base is similar to prior. The re is some improving aeration in the periphery of the left mid and lower lung. Surgical clips of bila teral axilla. Prior vertebroplasty change along 3 levels in the midthoracic spine with posterior thor acic fusion are rib. IMPRESSION: Some patchy density right mid lung and periphery of the right base is similar to 07/15/2021. Aeration is improving on the left.
[2021-07-17] MEDS ORDERED: SODIUM CHLORIDE 0.9% 1,000 ML IV ONE (15:05)
--- NOTE | 2021-07-17 15:11 | CT ---
EXAMINATION TYPE: CT brain wo con DATE OF EXAM: 07/17/2021 COMPARISON: 02/10/2013 HISTORY: 60-year-old female Weakness and appears confused, TECHNIQUE: Examination was done in axial plane without intravenous contrast. Coronal and sagittal r econstructions performed. CT DLP: 1099.4 mGycm Automated exposure control for dose reduction was used. FINDINGS: Subtle patchy hypodensity in the bilateral basal ganglia regions There is no evidence of acute intracranial hemorrhage, mass, mass-effect, or extra-axial fluid colle ction. There is no effacement of cerebral sulci or basal subarachnoid cisterns. There is no hydroce phalus. There is no midline shift. Ochoa-white matter distinction is preserved. Rightward nasal septal deviation. Moderate to severe mucosal thickening right ethmoid air cells and p olyps or mucous retention cyst right sphenoid sinus measuring 1 cm. Mastoid air cells well pneumatize d. Orbits and globes are intact. IMPRESSION: 1. Subtle patchy bilateral basal ganglionic hypodensity, new from 2012. Findings may reflect interval development of chronic small vessel ischemic disease changes. Given the symmetry, correlate to exclu de other etiologies such as carbon monoxide or other acute toxicity. MRI is clinically indicated. 2. Otherwise, no acute intracranial abnormality seen. 3. Moderate to severe chronic right ethmoid sinus disease.
[2021-07-17 15:20] LABS: Appearance,Urine Cloudy (Clear); Bilirubin,Urine Negative (Negative); Blood,Urine Negative (Negative); Color,Urine Yellow; Glucose,Urine (UA) 1+ (Negative); Ketones,Urine Negative (Negative); Leukocyte Esterase,Urine Trace (Negative); Mucus,Urine Many /hpf; Nitrite,Urine Negative (Negative); Protein,Urine Trace (Negative); RBC,Urine 2 /hpf (0-5); Specific Gravity,Urine 1.024 (1.001-1.035); Squamous Epithelial Cell,Urine 1 /hpf (0-4); Urobilinogen,Urine <2.0 mg/dL (<2.0); WBC,Urine 7 /hpf (0-5)
[2021-07-17 15:27] LABS: Amphetamine Screen,Urine Not Detected (NotDetected); Barbiturate Screen,Urine Not Detected (NotDetected); Benzodiazepines Screen,Urine Detected (NotDetected); Cocaine Screen,Urine Not Detected (NotDetected); Methadone Screen, Urine Not Detected (NotDetected); Opiate Screen,Urine Not Detected (NotDetected); Oxycodone Screen, Urine Not Detected (NotDetected); Phencyclidine Screen,Urine Not Detected (NotDetected); Tricyclic Antidepressant,Urine Not Detected (NotDetected); Urn Cannabinoid Scrn Detected (NotDetected)
[2021-07-17] MEDS ORDERED: HYDROcodone/APAP 5-325MG 1 EACH TAB PO PRN (22:31)
[2021-07-17] MEDS: LORazepam 1 MG TAB PO PRN (23:18)
[2021-07-18] MEDS: PALBOCICLIB 75 MG PO SCH ×2 (00:18→21:08)
[2021-07-18] MEDS: IPRATROPIUM-ALBUTEROL 3 ML NEB INHALATION PRN ×4 (09:12→20:14)
[2021-07-18] MEDS: SYMBICORT 160-4.5 MCG INHALER INHALATION SCH ×2 (09:12→20:14)
[2021-07-18] MEDS: PANTOPRAZOLE 40 MG TABLET PO SCH (10:03)
[2021-07-18] MEDS: amLODIPine 10 MG TAB PO SCH (10:03)
[2021-07-18] MEDS: busPIRone HCl 10 MG TAB PO SCH ×2 (10:03→21:07)
[2021-07-18] MEDS: dexAMETHasone 4 MG TAB PO SCH (10:03)
[2021-07-18] MEDS: acetaZOLAMIDE 250 MG TAB PO SCH ×2 (10:03→21:08)
[2021-07-18] MEDS: AMOXIC-POT CLAV 875-125MG 1 EACH TAB PO SCH ×2 (10:03→21:07)
[2021-07-18] MEDS: SENNOSIDES-DOCUSATE SODIUM 1 EACH TAB PO SCH (10:03)
[2021-07-18] MEDS: guaiFENesin 600 MG TABLET.ER PO SCH ×2 (10:03→21:08)
--- NOTE | 2021-07-18 10:23 | P.HPIM ---
History of Present Illness H&P Date: 07/18/21 HISTORY OF PRESENT ILLNESS 60-year-old female one of Dr. 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 Also patient had abdominal uterine and fallopian metastasis from breast cancer with total hysterectomy. Patient had respiratory failure on and off in the past has been on home O2 she was hospitalized at [facility] over a month ago for COPD exacerbation was treated and done well. She was recently had an extensive stay here from 06/30 and was discharged home on 07/16 and was treated for acute respiratory failure, COPD exacerbation, and severe bronchitis. Apparently patient was discharged home and her daughter was unable to get a hold of her and she called EMS and patient was returned to the emergency department. There was some question of altered mental status, per emergency room doctor she was alert and orientated on arrival. This morning she is an A&O 4, CT of the head showed no acute process. Urine drug screen was positive for benzodiazepines and marijuana. CBC was unremarkable, sodium 132, AST 39, AST 35 and urine was negative. Vital signs are stable, patient is afebrile, pulse rate 88, blood pressure 117/82, pulse ox 93% on 2 L nasal cannula. Chest x-ray showed patchy density on the right midlung and periphery of the right base improved aeration from 07/15/2021. Order for pulmonary consult to evaluate patient, if she remains stable plan for possible discharge home tomorrow. REVIEW OF SYSTEMS Constitutional: No fever, no chills, no night sweats. No weight change. No weakness, fatigue or lethargy. No daytime sleepiness. EENT: No headache. No blurred vision or double vision, no loss of vision. No loss of Hearing, no ringing in the ears, no dizziness. Lungs: Denies shortness of breath, cough, wheezes. Cardiovascular: No chest pain, no lower extremity edema. No palpitations. No paroxysmal nocturnal dyspnea. No orthopnea. No lightheadedness or dizziness. No syncopal episodes. Abdominal: No abdominal pain. No nausea, vomiting. No diarrhea. No constipation. No bloody or tarry stools.. No loss of appetite. Genitourinary: No dysuria, increased frequency, urgency. No urinary retention. Musculoskeletal: No myalgias. No muscle weakness, no gait dysfunction, no frequent falls. No back pain. No neck pain. Integumentary: No wounds, no lesions. No rash or pruritus. No unusual bruising. No change in hair or nails. Neurologic: No aphasia. No facial droop. No change in mentation. No head injury. No headache. No paralysis. No paresthesia. Psychiatric: No depression. No anxiety. No mood swings. Endocrine: No abnormal blood sugars. No weight change. No excessive sweating or thirst. No cold intolerance. SOCIAL HISTORY She quit smoking 5 years ago smoked pack a day for 30 years, no alcohol abuse, positive marijuana use. Patient is oxygen dependent at home with updraft no CPAP. FAMILY HISTORY She is single but has one child who is living and well, 4 siblings with no major medical problem, her mother is living at age 84 well and healthy, father dying at age 59 from lung cancer. PHYSICAL EXAMINATION Gen: This is a 60-year-old laying in bed with no acute distress. HEENT: Head is atraumatic, normocephalic. Pupils equal, round. Sclerae is anicteric. NECK: Supple. No JVD. No lymphadenopathy. No thyromegaly. LUNGS: Decreased breath sounds bilateral, occasional faint wheeze. HEART: Regular rate and rhythm. No murmur. ABDOMEN: Soft. Bowel sounds are present. No masses. No tenderness. EXTREMITIES: No pedal edema. No calf tenderness. NEUROLOGICAL: Patient is awake, alert and oriented x4. Cranial nerves 2 through 12 are grossly intact. ASSESSMENT AND PLAN 1. Altered mental status: Improved prior to arrival to ED, CT of the head showed no acute process. UA was negative. Urine drug screen positive for benzodiazepines and marijuana. 2. Recent hospitalization with Acute respiratory failure: Continue O2, started on Decadron 4 mg daily and bronchodilator for now. We'll consult pulmonary for evaluation. 2. COPD: continue DuoNeb along with Pulmicort and theophylline 300 mg at bed. 3. Recent hospital acquired pneumonia with severe purulent tracheobronchitis. On Augmentin twice a day 4. Advance breast cancer with lung metastasis: Still seen oncology still on immune therapy. 5. hypertension: Patient has been on amlodipine 10 mg a day continue medication. 6. Chronic depression: Will hold Effexor and Abilify, and lorazepam decreased to 0.5 mg every 12 hours. 7. Hyperglycemia: Accu-Chek with sliding scales coverage and be done. 8. GI prophylaxis: Patient will be on pantoprazole 40 mg daily.. 9. DVT prophylaxis: Early ambulation. 10. CODE STATUS: Full code. Patient will be admitted to the hospital for a minimum of 2 night stay. Discharge plan: Likely home Impression and plan of care have been directed as dictated by the signing physic ian. Celsa Lara nurse practitioner acting as scribe for signing physician. 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 History of Any Multi-Drug Resistant Organisms: None Reported Past Surgical History: Hysterectomy, Orthopedic Surgery Additional Past Surgical History / Comment(s): Cervical cone bx at age 22 yrs, bilateral mastectomies/multiple implants d/t ruptures, D&C, total hysterectomy, VAT/bx, infusaport-since removed, L ACL repair and multiple L knee arthroscopic surgeries, bilateral thumbs trigger finger surgeries, EGDS/colonoscopies with benign polypectomy, L7 kyphoplasty/rods/screws. Past Anesthesia/Blood Transfusion Reactions: Postoperative Nausea & Vomiting (PONV) Past Psychological History: Anxiety, Depression Additional Psychological History / Comment(s): Pt resides alone. She has home O2, nebulizer, blood pressure monitor and oximeter. She drives. Smoking Status: Former smoker Past Alcohol Use History: None Reported Additional Past Alcohol Use History / Comment(s): started smoking at age 18,smoked one pack per day and quit 2013. Past Drug Use History: Marijuana Additional Drug Use History / Comment(s): Smoked pot on occasion in the past - Past Family History Father Family Medical History: Cancer Additional Family Medical History / Comment(s): Patient reports her father of lung cancer at age 59. Brother(s) Additional Family Medical History / Comment(s): Patient has to penicillin major medical problems. Patient has 2 sisters with no major medical problems. Patient has one daughter with no major medical problems. Mother Family Medical History: No Reported History Additional Family Medical History / Comment(s): Mother is healthy and 84 yrs old. Medications and Allergies Home Medications Medication Instructions Recorded Confirmed Type Omeprazole 20 mg PO DAILY 09/05/15 07/17/21 History Venlafaxine HCl [Effexor XR] 150 mg PO DAILY 09/05/15 07/17/21 History amLODIPine [Norvasc] 10 mg PO DAILY 08/27/18 07/17/21 History ARIPiprazole [Abilify] 2 mg PO HS 06/30/21 07/17/21 History Fluticasone/Vilanterol [Breo 1 puff INHALATION RT-DAILY 06/30/21 07/17/21 History Ellipta 200-25 Mcg Inhaler] HYDROcodone/APAP 10-325MG [[place] 1 tab PO Q6HR PRN 06/30/21 07/17/21 History 10-325] Ipratropium-Albuterol Nebulize 3 ml INHALATION RT-Q4H PRN 06/30/21 07/17/21 History [Duoneb 0.5 mg-3 mg/3 ml Soln] LORazepam [Ativan] 1 mg PO TID PRN 06/30/21 07/17/21 History Palbociclib [Ibrance] 75 mg PO DIRECTED 06/30/21 07/17/21 History Theophylline 24 Hour [True-24] 300 mg PO HS #30 capsule 07/16/21 07/17/21 Rx acetaZOLAMIDE [Diamox] 250 mg PO BID #14 tab 07/16/21 07/17/21 Rx busPIRone HCl [Buspar] 10 mg PO BID #60 tab 07/16/21 07/17/21 Rx guaiFENesin [Mucinex] 1,200 mg PO Q12HR tablet 07/16/21 07/17/21 Rx Amoxic-Pot Clav 875-125Mg 1 tab PO Q12HR 07/17/21 07/17/21 History [Augmentin 875-125] Sennosides-Docusate Sodium 2 tab PO DAILY 07/17/21 07/17/21 History [Senokot-S] predniSONE See Taper PO DAILY 07/17/21 07/17/21 History Allergies Allergy/AdvReac Type Severity Reaction Status Date / Time levofloxacin Allergy Rash/Hives Verified 07/17/21 12:27 ondansetron HCl AdvReac Severe Increased Verified 07/17/21 12:27 [From Zofran (as QT interval hydrochloride)] prochlorperazine edisylate AdvReac Severe Increased Verified 07/17/21 12:27 [From Compazine] QT interval prochlorperazine maleate AdvReac Severe Increased Verified 07/17/21 12:27 [From Compazine] QT Interval Physical Exam Vitals: Vital Signs Temp Pulse Pulse Resp BP BP Pulse Ox 07/18/21 09:23 92 07/18/21 09:12 88 07/18/21 08:29 87 117/82 93 L 07/18/21 05:00 97.5 F L 83 20 124/85 95 07/17/21 20:35 97.9 F 111 H 20 125/90 95 07/17/21 18:14 98 20 119/90 95 07/17/21 12:57 90 18 07/17/21 12:49 92 18 07/17/21 11:05 20 07/17/21 10:56 97.1 F L 98 20 108/97 93 L Intake and Output 07/17/21 07/18/21 07/18/21 22:59 06:59 14:59 Intake Total 100 Balance 100 Intake: Oral 100 Other: Voiding Method Toilet # Voids 1 Weight 79.379 kg Results CBC & Chem 7: 07/17/21 12:05 07/17/21 12:05 Labs: Abnormal Lab Results - Last 24 Hours (Table) 07/17/21 07/17/21 07/17/21 Range/Units 12:00 12:04 12:05 Lymphocytes # 0.6 L (1.0-4.8) k/uL VBG pH 7.48 H (7.31-7.41) VBG HCO3 33 H (24-28) mmol/L Sodium (137-145) mmol/L Chloride (98-107) mmol/L Carbon Dioxide (22-30) mmol/L BUN (7-17) mg/dL Creatinine (0.52-1.04) mg/dL Glucose (74-99) mg/dL POC Glucose (mg/dL) 208 H (75-99) mg/dL AST (14-36) U/L ALT (4-34) U/L Urine Appearance (Clear) Urine Protein (Negative) Urine Glucose (UA) (Negative) Ur Leukocyte Esterase (Negative) Urine WBC (0-5) /hpf Urine Mucus (None) /hpf U Benzodiazepines Scrn (NotDetected) U Marijuana (THC) Screen (NotDetected) 07/17/21 07/17/21 Range/Units 12:05 12:05 Lymphocytes # (1.0-4.8) k/uL VBG pH (7.31-7.41) VBG HCO3 (24-28) mmol/L Sodium 132 L (137-145) mmol/L Chloride 95 L (98-107) mmol/L Carbon Dioxide 32 H (22-30) mmol/L BUN 20 H (7-17) mg/dL Creatinine 0.49 L (0.52-1.04) mg/dL Glucose 209 H (74-99) mg/dL POC Glucose (mg/dL) (75-99) mg/dL AST 39 H (14-36) U/L ALT 35 H (4-34) U/L Urine Appearance Cloudy H (Clear) Urine Protein Trace H (Negative) Urine Glucose (UA) 1+ H (Negative) Ur Leukocyte Esterase Trace H (Negative) Urine WBC 7 H (0-5) /hpf Urine Mucus Many H (None) /hpf U Benzodiazepines Scrn Detected H (NotDetected) U Marijuana (THC) Screen Detected H (NotDetected) Thrombosis Risk Factor Assmnt - DVT/VTE Prophylaxis DVT/VTE Prophylaxis: Low risk, early ambulation encouraged - Choose All That Apply Any of the Below Risk Factors Present?: Yes Each Factor Represents 1 point: Abnormal pulmonary function (COPD), Age 41-60 years, Obesity (BMI >25) Other Risk Factors: No Other congenital or acquired thrombophilia - If yes, enter type in comment: No Thrombosis Risk Factor Assessment Total Risk Factor Score: 3 Thrombosis Risk Factor Assessment Level: Moderate Risk
[2021-07-18 12:48] LABS: Glucose,Whole Blood 195 mg/dL (75-99)
[2021-07-18] MEDS: INSULIN ASPART (NovoLOG) 100 UNIT/ML VIAL SQ SCH ×3 (13:34→21:09)
--- NOTE | 2021-07-18 14:41 | P.CNPUL ---
History of Present Illness Consult date: 07/18/21 Requesting physician: Philip Azevedo Reason for consult: dyspnea, COPD Chief complaint: Altered mental status History of present illness: This is a very pleasant 60-year-old female patient with a known history of stage IV metastatic breast cancer most recently on IV Ancef and Faslodex, last treatme nt in June 2021 at the [facility]. She did undergo bilateral mastectomy and oophorectomy. She's had previous radiation therapy. She has a history of hypertension, hyperlipidemia, anxiety/depression. She also has a history of severe oxygen dependent chronic obstructive pulmonary disease and follows in our office for the same. She was just admitted for COPD exacerbation subsequent discharged home on 10/16/2020. She will represented to the emergency room again yesterday July 17 with altered mental status and hypoxemia. Her daughter found her at home not wearing her oxygen and having altered mental status. She is also stating she did not take any of her medications. Chest x- ray revealed a patchy density in the right midlung and perforated the right lung base similar compared to previous on 07/15/2021. Aeration is improved in the left lung. White count 7.0. Hemoglobin 13.9. Sodium 132. Potassium 4.8. Bicarb 32. Creatinine 0.49. Glucose 208. Troponin negative 1. Coronary virus not detected. Urine drug screen was positive for benzodiazepines and marijuana. She is seen today in consultation on the regular medical floor. She is sitting up in a chair at the bedside. Awake and alert. Oriented 3. Denies any worsening shortness of breath, cough or congestion. She is feeling back to her baseline. Review of Systems REVIEW OF SYSTEMS: CONSTITUTIONAL: Denies any recent significant weight loss or weight gain. EYES: Denies change in vision. EARS, NOSE, MOUTH, THROAT: Denies headaches, denies sore throat. CARDIOVASCULAR: Denies chest pain, palpitations or syncopal episodes. RESPIRATORY: Denies shortness of breath, cough, congestion or hemoptysis. GASTROINTESTINAL: Denies change in appetite, denies abdominal pain GENITOURINARY: Denies hematuria, denies infections. MUSKULOSKELETAL: Denies pain, denies swelling. INTEGUMENTARY: Denies rash, denies eczema. NEUROLOGICAL: Positive for altered mental status, hypoxemia, no recent seizure activity. PSYCHIATRIC: Denies anxiety, denies depression. HEMATOLOGIC/LYMPHATIC: Denies anemia, denies enlarged lymph nodes. 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 History of Any Multi-Drug Resistant Organisms: None Reported Past Surgical History: Hysterectomy, Orthopedic Surgery Additional Past Surgical History / Comment(s): Cervical cone bx at age 22 yrs, bilateral mastectomies/multiple implants d/t ruptures, D&C, total hysterectomy, VAT/bx, infusaport-since removed, L ACL repair and multiple L knee arthroscopic surgeries, bilateral thumbs trigger finger surgeries, EGDS/colonoscopies with benign polypectomy, L7 kyphoplasty/rods/screws. Past Anesthesia/Blood Transfusion Reactions: Postoperative Nausea & Vomiting (PONV) Past Psychological History: Anxiety, Depression Additional Psychological History / Comment(s): Pt resides alone. She has home O2, nebulizer, blood pressure monitor and oximeter. She drives. Smoking Status: Former smoker Past Alcohol Use History: None Reported Additional Past Alcohol Use History / Comment(s): started smoking at age 18,smoked one pack per day and quit 2013. Past Drug Use History: Marijuana Additional Drug Use History / Comment(s): Smoked pot on occasion in the past - Past Family History Father Family Medical History: Cancer Additional Family Medical History / Comment(s): Patient reports her father of lung cancer at age 59. Brother(s) Additional Family Medical History / Comment(s): Patient has to penicillin major medical problems. Patient has 2 sisters with no major medical problems. Patient has one daughter with no major medical problems. Mother Family Medical History: No Reported History Additional Family Medical History / Comment(s): Mother is healthy and 84 yrs old. Medications and Allergies Home Medications Medication Instructions Recorded Confirmed Type Omeprazole 20 mg PO DAILY 09/05/15 07/17/21 History Venlafaxine HCl [Effexor XR] 150 mg PO DAILY 09/05/15 07/17/21 History amLODIPine [Norvasc] 10 mg PO DAILY 08/27/18 07/17/21 History ARIPiprazole [Abilify] 2 mg PO HS 06/30/21 07/17/21 History Fluticasone/Vilanterol [Breo 1 puff INHALATION RT-DAILY 06/30/21 07/17/21 History Ellipta 200-25 Mcg Inhaler] HYDROcodone/APAP 10-325MG [[place] 1 tab PO Q6HR PRN 06/30/21 07/17/21 History 10-325] Ipratropium-Albuterol Nebulize 3 ml INHALATION RT-Q4H PRN 06/30/21 07/17/21 History [Duoneb 0.5 mg-3 mg/3 ml Soln] LORazepam [Ativan] 1 mg PO TID PRN 06/30/21 07/17/21 History Palbociclib [Ibrance] 75 mg PO DIRECTED 06/30/21 07/17/21 History Theophylline 24 Hour [True-24] 300 mg PO HS #30 capsule 07/16/21 07/17/21 Rx acetaZOLAMIDE [Diamox] 250 mg PO BID #14 tab 07/16/21 07/17/21 Rx busPIRone HCl [Buspar] 10 mg PO BID #60 tab 07/16/21 07/17/21 Rx guaiFENesin [Mucinex] 1,200 mg PO Q12HR tablet 07/16/21 07/17/21 Rx Amoxic-Pot Clav 875-125Mg 1 tab PO Q12HR 07/17/21 07/17/21 History [Augmentin 875-125] Sennosides-Docusate Sodium 2 tab PO DAILY 07/17/21 07/17/21 History [Senokot-S] predniSONE See Taper PO DAILY 07/17/21 07/17/21 History Allergies Allergy/AdvReac Type Severity Reaction Status Date / Time levofloxacin Allergy Rash/Hives Verified 07/17/21 12:27 ondansetron HCl AdvReac Severe Increased Verified 07/17/21 12:27 [From Zofran (as QT interval hydrochloride)] prochlorperazine edisylate AdvReac Severe Increased Verified 07/17/21 12:27 [From Compazine] QT interval prochlorperazine maleate AdvReac Severe Increased Verified 07/17/21 12:27 [From Compazine] QT Interval Physical Exam Vitals: Vital Signs Temp Pulse Pulse Resp BP BP Pulse Ox 07/18/21 12:44 98.8 F 90 19 118/79 91 L 07/18/21 12:31 88 07/18/21 12:17 84 07/18/21 09:23 92 07/18/21 09:12 88 07/18/21 08:29 87 117/82 93 L 07/18/21 05:00 97.5 F L 83 20 124/85 95 07/17/21 20:35 97.9 F 111 H 20 125/90 95 07/17/21 18:14 98 20 119/90 95 Intake and Output 07/17/21 07/18/21 07/18/21 22:59 06:59 14:59 Intake Total 100 Balance 100 Intake: Oral 100 Other: Voiding Method Toilet Toilet # Voids 1 1 Weight 79.379 kg GENERAL EXAM: Alert, oriented 3, in a chair at the bedside, pleasant 60-year-old female, comfortable in no apparent distress. HEAD: Normocephalic. EYES: Normal reaction of pupils, equal size. NOSE: Clear with pink turbinates. THROAT: No erythema or exudates. NECK: No masses, no JVD. CHEST: No chest wall deformity. LUNGS: Equal air entry with faint end expiratory wheeze. Diminished CVS: S1 and S2 normal with no audible murmur, regular rhythm. ABDOMEN: No hepatosplenomegaly, normal bowel sounds, no guarding or rigidity. SPINE: No scoliosis or deformity SKIN: No rashes CENTRAL NERVOUS SYSTEM: No focal deficits, tone is normal in all 4 extremities. EXTREMITIES: There is no peripheral edema. No clubbing, no cyanosis. Peripheral pulses are intact. Results - Laboratory Findings CBC and BMP: 07/17/21 12:05 07/17/21 12:05 Abnormal lab findings: Abnormal Labs 07/17/21 07/17/21 07/17/21 12:00 12:04 12:05 Lymphocytes # 0.6 L VBG pH 7.48 H VBG HCO3 33 H Sodium Chloride Carbon Dioxide BUN Creatinine Glucose POC Glucose (mg/dL) 208 H AST ALT Urine Appearance Urine Protein Urine Glucose (UA) Ur Leukocyte Esterase Urine WBC Urine Mucus U Benzodiazepines Scrn U Marijuana (THC) Screen 07/17/21 07/17/21 07/18/21 12:05 12:05 12:46 Lymphocytes # VBG pH VBG HCO3 Sodium 132 L Chloride 95 L Carbon Dioxide 32 H BUN 20 H Creatinine 0.49 L Glucose 209 H POC Glucose (mg/dL) 195 H AST 39 H ALT 35 H Urine Appearance Cloudy H Urine Protein Trace H Urine Glucose (UA) 1+ H Ur Leukocyte Esterase Trace H Urine WBC 7 H Urine Mucus Many H U Benzodiazepines Scrn Detected H U Marijuana (THC) Screen Detected H - Diagnostic Findings Chest x-ray: image reviewed Assessment and Plan Assessment: 1 Altered mental status suspect secondary to hypoxemia with oxygen and medication noncompliance 2 Acute on chronic hypoxemic respiratory failure secondary to severe COPD and FEV1 value 37% of predicted, on home oxygen at 2 L 3 Stage IV metastatic breast cancer, status post bilateral mastectomy and oophorectomy, patient follows at the [facility] for her cancer care, she is currently on Ibrance and Foslodex, last treatment was 06/26/2021 4 Recent admission for COPD exacerbation and a left lower lobe pneumonia 5 History of chronic tobacco dependence 6 Hypertension 7 Depression 8 History of Alysha syndrome 9 Anxiety/depression Plan: The patient was seen and evaluated by Dr. Silva Chest x-ray and labs reviewed Continue DuoNeb inhalations, Symbicort, theophylline Continue Augmentin Probable discharge in the a.m. Educated regarding importance of oxygen and medication compliance May need social work involved regarding home situation We'll continue to follow and make further recommendations based on her clinical status I, the cosigning physician, performed a history & physical examination of the patient. Lungs sounds bilateral end expiratory wheeze, diminished. Maintaining good O2 saturations in the 90s on 2 L/m per nasal cannula. I discussed the assessment and plan of care with my nurse practitioner, Dagmar Mixon. I attest to the above consultation as dictated by her. Time with Patient: Greater than 30
[2021-07-18 17:27] LABS: Glucose,Whole Blood 284 mg/dL (75-99)
[2021-07-18 20:04] LABS: Glucose,Whole Blood 269 mg/dL (75-99)
[2021-07-18] MEDS: THEOPHYLLINE 24 HOUR 300 MG CAP.ER.24H PO SCH (21:07)
[2021-07-18] MEDS: LORazepam 1 MG TAB PO PRN (22:59)
[2021-07-19 02:30] LABS: Glucose,Whole Blood 156 mg/dL (75-99)
[2021-07-19 07:21] LABS: Glucose,Whole Blood 212 mg/dL (75-99)
[2021-07-19] MEDS: guaiFENesin 600 MG TABLET.ER PO SCH ×2 (07:43→21:58)
[2021-07-19] MEDS: amLODIPine 10 MG TAB PO SCH (07:43)
[2021-07-19] MEDS: dexAMETHasone 4 MG TAB PO SCH (07:43)
[2021-07-19] MEDS: PANTOPRAZOLE 40 MG TABLET PO SCH (07:43)
[2021-07-19] MEDS: busPIRone HCl 10 MG TAB PO SCH ×2 (07:43→21:58)
[2021-07-19] MEDS: SENNOSIDES-DOCUSATE SODIUM 1 EACH TAB PO SCH (07:43)
[2021-07-19] MEDS: AMOXIC-POT CLAV 875-125MG 1 EACH TAB PO SCH ×2 (07:43→21:58)
[2021-07-19] MEDS: INSULIN ASPART (NovoLOG) 100 UNIT/ML VIAL SQ SCH ×4 (07:44→22:13)
[2021-07-19] MEDS: acetaZOLAMIDE 250 MG TAB PO SCH ×2 (07:44→21:59)
[2021-07-19] MEDS: SYMBICORT 160-4.5 MCG INHALER INHALATION SCH ×2 (09:23→20:17)
[2021-07-19] MEDS: IPRATROPIUM-ALBUTEROL 3 ML NEB INHALATION PRN ×4 (09:23→20:17)
[2021-07-19] MEDS: LORazepam 1 MG TAB PO PRN ×2 (11:21→23:00)
--- NOTE | 2021-07-19 11:56 | P.PN ---
Subjective Progress Note Date: 07/19/21 HISTORY OF PRESENT ILLNESS 60-year-old female one of Dr. 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 Also patient had abdominal uterine and fallopian metastasis from breast cancer with total hysterectomy. Patient had respiratory failure on and off in the past has been on home O2 she was hospitalized at [facility] over a month ago for COPD exacerbation was treated and done well. She was recently had an extensive stay here from 06/30 and was discharged home on 07/16 and was treated for acute respiratory failure, COPD ex acerbation, and severe bronchitis. Apparently patient was discharged home and her daughter was unable to get a hold of her and she called EMS and patient was returned to the emergency department. There was some question of altered mental status, per emergency room doctor she was alert and orientated on arrival. This morning she is an A&O 4, CT of the head showed no acute process. Urine drug s creen was positive for benzodiazepines and marijuana. CBC was unremarkable, sodium 132, AST 39, AST 35 and urine was negative. Vital signs are stable, patient is afebrile, pulse rate 88, blood pressure 117/82, pulse ox 93% on 2 L nasal cannula. Chest x-ray showed patchy density on the right midlung and periphery of the right base improved aeration from 07/15/2021. Order for pulmonary consult to evaluate patient, if she remains stable plan for possible discharge home tomorrow. 07/19: Patient was evaluated resting comfortably in bed. Reports she is doing well, denies any shortness of breath. Vital signs have been stable, she remains afebrile, pulse 90, blood pressure 124/82, pulse ox 97% on 2 L nasal cannula. Patient stated she has been up ambulating independently within the room. Was unable to reach daughter regarding discharge plans. We'll consult social work for discharge plan, patient could probably benefit from subacute rehab, unsure if daughter is able to stay with patient and assist with care. REVIEW OF SYSTEMS Constitutional: No fever, no chills, no night sweats. No weight change. No weakness, fatigue or lethargy. No daytime sleepiness. EENT: No headache. No blurred vision or double vision, no loss of vision. No loss of Hearing, no ringing in the ears, no dizziness. Lungs: Denies shortness of breath, cough, wheezes. Cardiovascular: No chest pain, no lower extremity edema. No palpitations. No paroxysmal nocturnal dyspnea. No orthopnea. No lightheadedness or dizziness. No syncopal episodes. Abdominal: No abdominal pain. No nausea, vomiting. No diarrhea. No constipation. No bloody or tarry stools.. No loss of appetite. Genitourinary: No dysuria, increased frequency, urgency. No urinary retention. Musculoskeletal: No myalgias. No muscle weakness, no gait dysfunction, no frequent falls. No back pain. No neck pain. Integumentary: No wounds, no lesions. No rash or pruritus. No unusual bruising. No change in hair or nails. Neurologic: No aphasia. No facial droop. No change in mentation. No head injury. No headache. No paralysis. No paresthesia. Psychiatric: No depression. No anxiety. No mood swings. Endocrine: No abnormal blood sugars. No weight change. No excessive sweating or thirst. No cold intolerance. SOCIAL HISTORY She quit smoking 5 years ago smoked pack a day for 30 years, no alcohol abuse, positive marijuana use. Patient is oxygen dependent at home with updraft no CPAP. FAMILY HISTORY She is single but has one child who is living and well, 4 siblings with no major medical problem, her mother is living at age 84 well and healthy, father dying at age 59 from lung cancer. PHYSICAL EXAMINATION Gen: This is a 60-year-old laying in bed with no acute distress. HEENT: Head is atraumatic, normocephalic. Pupils equal, round. Sclerae is anicteric. NECK: Supple. No JVD. No lymphadenopathy. No thyromegaly. LUNGS: Decreased breath sounds bilateral, occasional faint wheeze. 2 L nasal cannula. HEART: Regular rate and rhythm. No murmur. ABDOMEN: Soft. Bowel sounds are present. No masses. No tenderness. EXTREMITIES: No pedal edema. No calf tenderness. NEUROLOGICAL: Patient is awake, alert and oriented x4. Cranial nerves 2 through 12 are grossly intact. ASSESSMENT AND PLAN 1. Altered mental status: Improved prior to arrival to ED, CT of the head showed no acute process. UA was negative. Urine drug screen positive for benzodiazepines and marijuana. 2. Recent hospitalization with Acute respiratory failure: Continue O2, started on Decadron 4 mg daily and bronchodilator for now. We'll consult pulmonary for evaluation. 2. COPD: continue DuoNeb along with Pulmicort and theophylline 300 mg at bed. 3. Recent hospital acquired pneumonia with severe purulent tracheobronchitis. On Augmentin twice a day 4. Advance breast cancer with lung metastasis: Still seen oncology still on immune therapy. 5. hypertension: Patient has been on amlodipine 10 mg a day continue medication. 6. Chronic depression: Will hold Effexor and Abilify, and lorazepam decreased to 0.5 mg every 12 hours. 7. Hyperglycemia: Accu-Chek with sliding scales coverage and be done. 8. GI prophylaxis: Patient will be on pantoprazole 40 mg daily.. 9. DVT prophylaxis: Early ambulation. 10. CODE STATUS: Full code. Patient will be admitted to the hospital for a minimum of 2 night stay. Discharge plan: Likely home Impression and plan of care have been directed as dictated by the signing physician. Celsa Lara nurse practitioner acting as scribe for signing physician. Objective - Vital Signs Vital signs: Vital Signs Temp 97.8 F 07/19/21 04:52 Pulse 90 07/19/21 09:38 Resp 16 07/19/21 04:52 BP 124/82 07/19/21 04:52 Pulse Ox 97 07/19/21 09:23 Intake & Output 07/18/21 07/19/21 07/19/21 18:59 06:59 18:59 Other: Voiding Method Toilet Toilet Toilet # Voids 1 3 # Bowel Movements 0 - Labs CBC & Chem 7: 07/17/21 12:05 07/17/21 12:05 Labs: Abnormal Lab Results - Last 24 Hours (Table) 07/18/21 07/18/21 07/18/21 Range/Units 12:46 17:24 20:02 POC Glucose (mg/dL) 195 H 284 H 269 H (75-99) mg/dL 07/19/21 07/19/21 Range/Units 02:29 07:11 POC Glucose (mg/dL) 156 H 212 H (75-99) mg/dL
[2021-07-19 12:10] LABS: Glucose,Whole Blood 212 mg/dL (75-99)
--- NOTE | 2021-07-19 14:41 | P.PN ---
Subjective Progress Note Date: 07/19/21 Principal diagnosis: Altered mental status This is a very pleasant 60-year-old female patient with a known history of stage IV metastatic breast cancer most recently on IV Ancef and Faslodex, last treatment in June 2021 at the [facility]. She did undergo bilateral mastectomy and oophorectomy. She's had previous radiation therapy. She has a history of hypertension, hyperlipidemia, anxiety/depression. She also has a history of severe oxygen dependent chronic obstructive pulmonary disease and follows in our office for the same. She was just admitted for COPD exacerbation subsequent discharged home on 10/16/2020. She will represented to the emergency room again yesterday July 17 with altered mental status and hypoxemia. Her daughter found her at home not wearing her oxygen and having altered mental status. She is also stating she did not take any of her medications. Chest x-ray revealed a patchy density in the right midlung and perforated the right lung base similar compared to previous on 07/15/2021. Aeration is improved in the left lung. White count 7.0. Hemoglobin 13.9. Sodium 132. Potassium 4.8. Bicarb 32. Creatinine 0.49. Glucose 208. Troponin negative 1. Coronary virus not detected. Urine drug screen was positive for benzodiazepines and marijuana. She is seen today in consultation on the regular medical floor. She is sitting up in a chair at the bedside. Awake and alert. Oriented 3. Denies any worsening shortness of breath, cough or congestion. She is feeling back to her baseline. The patient is seen today 07/19/2021 in follow-up on the regular medical floor. She is currently out ambulating in the hallway with assistance. Denies any worsening shortness of breath, cough or congestion. Maintaining O2 saturations in the upper 90s on 2 L/m per nasal cannula. She's afebrile. Hemodynamically stable. Blood glucose 212. She is continued on DuoNeb inhalations, Symbicort, theophylline, Diamox, dexamethasone. Antibiotics in the form of Augmentin. Objective - Vital Signs Vital signs: Vital Signs Temp 98.0 F 07/19/21 11:49 Pulse 96 07/19/21 12:58 Resp 16 07/19/21 11:49 BP 112/80 07/19/21 11:49 Pulse Ox 97 07/19/21 09:23 Intake & Output 07/18/21 07/19/21 07/19/21 18:59 06:59 18:59 Other: Voiding Method Toilet Toilet Toilet # Voids 1 3 # Bowel Movements 0 - Exam GENERAL EXAM: Alert, oriented 3, ambulating in the hallway, pleasant 60-year-old female, comfortable in no apparent distress. HEAD: Normocephalic. EYES: Normal reaction of pupils, equal size. NOSE: Clear with pink turbinates. THROAT: No erythema or exudates. NECK: No masses, no JVD. CHEST: No chest wall deformity. LUNGS: Equal air entry with faint end expiratory wheeze. Diminished CVS: S1 and S2 normal with no audible murmur, regular rhythm. ABDOMEN: No hepatosplenomegaly, normal bowel sounds, no guarding or rigidity. SPINE: No scoliosis or deformity SKIN: No rashes CENTRAL NERVOUS SYSTEM: No focal deficits, tone is normal in all 4 extremities. EXTREMITIES: There is no peripheral edema. No clubbing, no cyanosis. Peripheral pulses are intact. - Labs CBC & Chem 7: 07/17/21 12:05 07/17/21 12:05 Labs: Abnormal Lab Results - Last 24 Hours (Table) 07/18/21 07/18/21 07/19/21 Range/Units 17:24 20:02 02:29 POC Glucose (mg/dL) 284 H 269 H 156 H (75-99) mg/dL 07/19/21 07/19/21 Range/Units 07:11 12:06 POC Glucose (mg/dL) 212 H 212 H (75-99) mg/dL Assessment and Plan Assessment: 1 Altered mental status suspect secondary to hypoxemia with oxygen and medication noncompliance 2 Acute on chronic hypoxemic respiratory failure secondary to severe COPD and FEV1 value 37% of predicted, on home oxygen at 2 L 3 Stage IV metastatic breast cancer, status post bilateral mastectomy and oophorectomy, patient follows at the [facility] for her cancer care, she is currently on Ibrance and Foslodex, last treatment was 06/26/2021 4 Recent admission for COPD exacerbation and a left lower lobe pneumonia 5 History of chronic tobacco dependence 6 Hypertension 7 Depression 8 History of Alysha syndrome 9 Anxiety/depression Plan: The patient was seen and evaluated by Dr. Shira Swift from the pulmonary standpoint Continue the current treatment plan Probable discharge in the a.m. We'll continue to follow I, the cosigning physician, performed a history & physical examination of the patient. Lungs sounds bilateral end expiratory wheeze, diminished. Maintaining good O2 saturations in the 90s on 2 L/m per nasal cannula. I discussed the assessment and plan of care with my nurse practitioner, Dagmar Mixon. I attest to the above note as dictated by her.
[2021-07-19 17:27] LABS: Glucose,Whole Blood 323 mg/dL (75-99)
[2021-07-19 20:50] LABS: Glucose,Whole Blood 247 mg/dL (75-99)
[2021-07-19] MEDS: THEOPHYLLINE 24 HOUR 300 MG CAP.ER.24H PO SCH (21:59)
[2021-07-19] MEDS: PALBOCICLIB 75 MG PO SCH (22:03)
[2021-07-19 22:08] LABS: Glucose,Whole Blood 241 mg/dL (75-99)
[2021-07-20 05:26] VITALS: BP 109/76; RESP 18; TEMP 97.9
[2021-07-20] MEDS ORDERED: PROCHLORPERAZINE 10 MG TAB PO PRN (05:37)
[2021-07-20 07:02] LABS: Glucose,Whole Blood 169 mg/dL (75-99)
[2021-07-20] MEDS: SYMBICORT 160-4.5 MCG INHALER INHALATION SCH (08:41)
[2021-07-20] MEDS: IPRATROPIUM-ALBUTEROL 3 ML NEB INHALATION PRN (08:42)
[2021-07-20 08:47] VITALS: PULSE 100
[2021-07-20] MEDS: busPIRone HCl 10 MG TAB PO SCH (08:56)
[2021-07-20] MEDS: INSULIN ASPART (NovoLOG) 100 UNIT/ML VIAL SQ SCH (08:56)
[2021-07-20] MEDS: SENNOSIDES-DOCUSATE SODIUM 1 EACH TAB PO SCH ×2 (08:56→09:01)
[2021-07-20] MEDS: acetaZOLAMIDE 250 MG TAB PO SCH (08:56)
[2021-07-20] MEDS: AMOXIC-POT CLAV 875-125MG 1 EACH TAB PO SCH (08:56)
[2021-07-20] MEDS: dexAMETHasone 4 MG TAB PO SCH (08:57)
[2021-07-20] MEDS: guaiFENesin 600 MG TABLET.ER PO SCH (08:57)
[2021-07-20] MEDS: amLODIPine 10 MG TAB PO SCH (08:57)
[2021-07-20] MEDS: PANTOPRAZOLE 40 MG TABLET PO SCH (08:57)
--- NOTE | 2021-07-20 10:06 | P.DS ---
<Arleen Gamez A - Last Filed: 07/20/21 11:44> Providers Expected date of discharge: 07/20/21 Hospital Course: HISTORY OF PRESENT ILLNESS 60-year-old female one of Dr. 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 Also patient had abdominal uterine and fallopian metastasis from breast cancer with total hysterectomy. Patient had respiratory failure on and off in the past has been on home O2 she was hospitalized at [facility] over a month ago for COPD exacerbation was treated and done well. She was recently had an extensive stay here from 06/30 and was discharged home on 07/16 and was treated for acute respiratory failure, COPD exacerbation, and severe bronchitis. Apparently patient was discharged home and her daughter was unable to get a hold of her and she called EMS and patient was returned to the emergency department. There was some question of altered mental status, per emergency room doctor she was alert and orientated on arrival. This morning she is an A&O 4, CT of the head showed no acute process. Urine drug screen was positive for benzodiazepines and marijuana. CBC was unremarkable, so dium 132, AST 39, AST 35 and urine was negative. Vital signs are stable, patient is afebrile, pulse rate 88, blood pressure 117/82, pulse ox 93% on 2 L nasal cannula. Chest x-ray showed patchy density on the right midlung and periphery of the right base improved aeration from 07/15/2021. Order for pulmonary consult to evaluate patient, if she remains stable plan for possible discharge home tomorrow. 07/19: Patient was evaluated resting comfortably in bed. Reports she is doing well, denies any shortness of breath. Vital signs have been stable, she remains afebrile, pulse 90, blood pressure 124/82, pulse ox 97% on 2 L nasal cannula. Patient stated she has been up ambulating independently within the room. Was unable to reach daughter regarding discharge plans. We'll consult social work for discharge plan, patient could probably benefit from subacute rehab, unsure if daughter is able to stay with patient and assist with care. 07/20:patient is found sitting up in a chair at the bedside. Her respiratory status is at her baseline and she is normally on oxygen at 2 L nasal cannula. Patient has some nausea this morning which is improved with Compazine. Reviewed patient's medication and patient is in agreement that she needs to cut back on some of her medications which we'll do for discharge. She does have significant improvement of her mental status with the changes that appointment made. Regarding discharge plan, patient will be going home and staying with her daughter for a few days. Patient will be discharged today in stable condition. ASSESSMENT AND PLAN 1. Metabolic encephalopathy possibly due to benzodiazepines and marijuana. 2. Recent hospitalization with Acute respiratory failure and COPD exacerbation. 3. COPD with chronic hypoxic respiratory failure. 3. Recent hospital acquired pneumonia with severe purulent tracheobronchitis. 4. Advance breast cancer with lung metastasis. 5. hypertension. 6. Recurrent depression. 7. Hyperglycemia secondary to steroids. Discharge plan: home with [facility] Impression and plan of care have been directed as dictated by the signing physician. Celsa Lara nurse practitioner acting as scribe for signing physician. Patient Condition at Discharge: Good Plan - Discharge Summary New Discharge Prescriptions: New Prochlorperazine [Compazine] 10 mg PO Q6HR PRN #30 tab PRN Reason: Nausea And Vomiting dexAMETHasone ORAL [Hexadrol] 4 mg PO DAILY #7 tab Continue Venlafaxine HCl [Effexor XR] 150 mg PO DAILY Omeprazole 20 mg PO DAILY amLODIPine [Norvasc] 10 mg PO DAILY HYDROcodone/APAP 10-325MG [Carlos 10-325] 1 tab PO Q6HR PRN PRN Reason: Pain ARIPiprazole [Abilify] 2 mg PO HS Ipratropium-Albuterol Nebulize [Duoneb 0.5 mg-3 mg/3 ml Soln] 3 ml INHALATION RT-Q4H PRN PRN Reason: Shortness Of Breath busPIRone HCl [Buspar] 10 mg PO BID #60 tab acetaZOLAMIDE [Diamox] 250 mg PO BID #14 tab Theophylline 24 Hour [True-24] 300 mg PO HS #30 capsule Amoxic-Pot Clav 875-125Mg [Augmentin 875-125] 1 tab PO Q12HR Sennosides-Docusate Sodium [Senokot-S] 2 tab PO DAILY Palbociclib [Ibrance] 75 mg PO DIRECTED Fluticasone/Vilanterol [Breo Ellipta 200-25 Mcg Inhaler] 1 puff INHALATION RT-DAILY guaiFENesin [Mucinex] 1,200 mg PO Q12HR tablet Changed LORazepam [Ativan] 0.5 mg PO BID #0 Discontinued predniSONE See Taper PO DAILY Discharge Medication List Omeprazole 20 mg PO DAILY 09/05/15 [History] Venlafaxine HCl [Effexor XR] 150 mg PO DAILY 09/05/15 [History] amLODIPine [Norvasc] 10 mg PO DAILY 08/27/18 [History] ARIPiprazole [Abilify] 2 mg PO HS 06/30/21 [History] Fluticasone/Vilanterol [Breo Ellipta 200-25 Mcg Inhaler] 1 puff INHALATION RT- DAILY 06/30/21 [History] HYDROcodone/APAP 10-325MG [Carlos 10-325] 1 tab PO Q6HR PRN 06/30/21 [History] Ipratropium-Albuterol Nebulize [Duoneb 0.5 mg-3 mg/3 ml Soln] 3 ml INHALATION RT-Q4H PRN 06/30/21 [History] Palbociclib [Ibrance] 75 mg PO DIRECTED 06/30/21 [History] Theophylline 24 Hour [True-24] 300 mg PO HS #30 capsule 07/16/21 [Rx] acetaZOLAMIDE [Diamox] 250 mg PO BID #14 tab 07/16/21 [Rx] busPIRone HCl [Buspar] 10 mg PO BID #60 tab 07/16/21 [Rx] guaiFENesin [Mucinex] 1,200 mg PO Q12HR tablet 07/16/21 [Rx] Amoxic-Pot Clav 875-125Mg [Augmentin 875-125] 1 tab PO Q12HR 07/17/21 [History] Sennosides-Docusate Sodium [Senokot-S] 2 tab PO DAILY 07/17/21 [History] LORazepam [Ativan] 0.5 mg PO BID #0 07/20/21 [Rx] Prochlorperazine [Compazine] 10 mg PO Q6HR PRN #30 tab 11/01/21 [Rx] dexAMETHasone ORAL [Hexadrol] 4 mg PO DAILY #7 tab 07/20/21 [Rx] Follow up Appointment(s)/Referral(s): Sanjay Alberts DO [Primary Care Provider] - 07/27/21 4:00 pm [facility] Visiting Nurse, [NON-STAFF] - 1 Week Patient Instructions/Handouts: Altered Mental Status (GEN) Discharge Disposition: HOME WITH HOME HEALTH SERVICES <Philip Azevedo - Last Filed: 07/29/21 05:42> Providers Date of admission: 07/17/21 15:05 Attending physician: Heide Hair MD Consults: 07/18/21 08:39 Consult Physician Routine Consulting Provider: Brit Cross Consult Reason/Comments: COPD Do you want consulting provider notified?: Yes Primary care physician: Sanjay Alberts [facility] Course: Greater than 35 minutes was utilized and coordinating patient's discharge.
== END 2021-07-20 12:45 | disposition home health service (06) | DRG 91 ==
LOC: EC 10:51 → 4SSUR 15:05 → 5NMEDONC 17:20
PROVIDERS: ADMIT Internal Medicine; ATTEND Internal Medicine
DX: G92.8 Other toxic encephalopathy (principal); J96.21 Acute and chronic respiratory failure with hypoxia; F33.9 Major depressive disorder, recurrent, unspecified; C78.00 Secondary malignant neoplasm of unspecified lung; F41.9 Anxiety disorder, unspecified; Z20.822 Contact with and (suspected) exposure to COVID-19; I10 Essential (primary) hypertension; J44.9 Chronic obstructive pulmonary disease, unspecified; C50.919 Malignant neoplasm of unspecified site of unspecified female breast; T42.4X5A Adverse effect of benzodiazepines, initial encounter; T40.715A Adverse effect of cannabis, initial encounter; E78.5 Hyperlipidemia, unspecified; F12.90 Cannabis use, unspecified, uncomplicated; T38.0X5A Adverse effect of glucocorticoids and synthetic analogues, initial encounter; K52.9 Noninfective gastroenteritis and colitis, unspecified; K21.9 Gastro-esophageal reflux disease without esophagitis; Z92.3 Personal history of irradiation; Z79.899 Other long term (current) drug therapy; Z99.81 Dependence on supplemental oxygen; Z90.710 Acquired absence of both cervix and uterus; Z90.13 Acquired absence of bilateral breasts and nipples; Z87.891 Personal history of nicotine dependence; Z85.3 Personal history of malignant neoplasm of breast; Z80.1 Family history of malignant neoplasm of trachea, bronchus and lung
CPT/HCPCS: 36415; 70450; 71046; 80053; 80306; 81001; 82803; 84484; 85025; 87635; 93005; 94640; 94760; 99285